=== PATIENT | female | born 1975 | race Caucasian/White ===

== ENCOUNTER 2018-03-16 07:25 | Observation (INO) | payer SELFPAY ==
[~2018-03-16] VITALS: Ht 170.2 cm; Wt 85.4 kg
[~2018-03-16 07:25] MED LIST: AC500T PO; ALPR1T PO; ALPR1TAB2 PO; AMOX500T2 PO; BPR150TCR; BUPR150T9 PO; CEPH500C PO; CLN.1T PO; CLON0.1T PO; DIAZ-345 PO; GABA-490 PO; GABA600T2; GABA800T PO; GABA800T2 PO; GBPN300C PO; HYDR-2997 PO; HYDR-34 PO; HYDR-3583 PO; HYDR118S10 PO; HYDR1TAB3 PO; HYDR1TAB8 OP; IBUP-30 PO; KETO-22 PO; KETO75CA PO; LSRT50T PO; METH50PO2 MC; METOPROLOL; MTP25TSR; MULT-974 PO; NAPR-689 PO; NITR-65 PO; OMEP20CA6; ONDA-42 SL; ONDA8TAB9 PO; ONDA8TAB9 SL; ONDAN4ODT PO; OXYC-272 PO; OXYC-465 PO; PRM25T PO; PRM50SU PR; PROM25SU10 PR; PROM25SU10 RC; PROM50SU10 RC; QTP200T PO; QUET150T; QUET300T; QUET300T PO; QUET300T3 PO; RABE20TA; SCR1T1; SULF-222 PO; SULF1TAB23 PO; SULF1TAB38 PO; TMSL.4C PO; TRAM-21; TRAM50TA2 PO
--- OUTSIDE RECORDS SUMMARY | 2018-03-16 07:31 | XMS REPORT ---
Author Author DEONDRE SHAFFER [facility] eClinicalWorks Address Unknown Phone Unavailable Care Team Providers Care Corporate Event Planner Name Role Phone DEONDRE SHAFFER CP Unavailable Allergies, Adverse Reactions, Alerts Substance Reaction Event Type Tramadol Narc alert Drug Allergy Tramad Info Not Available Non Drug Allergy Problems Problem Type Condition Code Onset Dates Condition Status Assessment Arthritis M19.90 Active Problem Hypertension I10 Active Problem Arthritis M19.90 Active Problem Migraine G43.909 Active Assessment Migraine G43.909 Active Assessment Hypertension I10 Active Problem Other psoriasis 696.1 Active Problem Depressive disorder, not elsewhere classified 311 Active Medications Medication Code System Code Instructions Start Date End Date Status Dosage Seroquel XR [facility] [address]-00 300 MG Orally Once a day Dec 12, 2014 1 tablet in the evening Neurontin [facility] [address]-38 800 MG Three times a day January 28, 2014 1 tablet Clonidine HCl [facility] [address]-04 0.1 MG 2 times a day TAKE ONE TABLET BY MOUTH TWICE DAILY (PLEASE MAKE FOLLOW-UP APPOINTMENT) Imitrex [facility] [address]-75 50 MG Orally 2 times a day Aug 03, 2015 1 tablet as needed one time Procedures Procedure Coding System Code Date Office Visit, Est Pt., Level 3 CPT-4 16355 Aug 03, 2015 Vital Signs Date/Time: Aug 03, 2015 Temperature 98.0 F Weight 156 lbs Height 67 in BMI 24.43 Index Blood Pressure Diastolic 88 mmHg Blood Pressure Systolic 130 mmHg Cardiac Monitoring Heart Rate 88 bpm Results No Known Results Summary Purpose eClinicalWorks Submission
--- OUTSIDE RECORDS SUMMARY | 2018-03-16 07:31 | XMS REPORT ---
Author Author DEONDRE SHAFFER [facility] Address [address] [place] [address] Care Team Providers Care Dress Fitter Name Role Phone DEONDRE SHAFFER Unavailable PROBLEMS Type Condition ICD9-CM Code FAB84-GQ Code Onset Dates Condition Status SNOMED Code Problem Benzodiazepine dependence F13.20 Active 067210200 Problem Lumbago with sciatica, unspecified side M54.40 Active 535788344 Problem Essential hypertension I10 Active 57714937 Problem Migraine G43.909 Active 86047959 Problem Arthritis M19.90 Active 8153649 Problem Hypertension I10 Active 68334824 Problem Psoriasis L40.9 Active 9923019 Problem Gastroesophageal reflux disease without esophagitis K21.9 Active 642207498 Problem Anxiety F41.9 Active 37679284 Problem Other chronic pain G89.29 Active 26710046 Problem Affective disorder F39 Active 90472568 Problem Moderate episode of recurrent major depressive disorder F33.1 Active 321730428 ALLERGIES Substance Reaction Event Type Date Status Levaquin rash Drug Allergy May, Active Tramadol Narc alert Drug Allergy May, Active ENCOUNTERS Encounter Location Date Diagnosis [facility] [address] [address] Dec, [facility] [place] [address] [address] Nov, Psoriasis L40.9 [facility] [place] [address] [address] Nov, [facility] [place] [address] [address] Nov, Anxiety F41.9 [facility] [place] [id number] [address] Oct, [facility] [place] [id number] [address] Oct, [facility] [place] [address] [address] Oct, [facility] [address] [address] Oct, [facility] [id number] [place] [address]182- 3345 Sep, [facility] [id number] [place] [address] 39790- 3242 Sep, [facility] [place] [facility] [id number] [place] [address] [id number] Aug, Dental examination Z01.20 and Dental caries K02.9 [facility] [id number] [place] [address] 16211- 0503 Aug, [facility] [place] [id number] [place] [address] 37527- 2092 Jul, [facility] [place] [address] [address] Jul, [facility] [place] [id number] [place] [address] 55896- 1097 Jul, Moderate episode of recurrent major depressive disorder F33.1 [facility] [place] [address] [address] 18 Jun, 2017 Moderate episode of recurrent major depressive disorder F33.1 and Anxiety F41.9 [facility] [place] [address] [address] 14 Jun, 2017 [facility] [place] [id number] [place] [address] 29900- 2546 11 Jun, 2017 Anxiety F41.9 [facility] [place] [address] [address] 01 Jun, 2017 Moderate episode of recurrent major depressive disorder F33.1 [facility] [place] [id number] [place] [address] 06141- 0947 Jun, [facility] [place] [address] [address] May, Moderate episode of recurrent major depressive disorder F33.1 [facility] [id number] [place] [address]7877 -[address]93 May, [facility] [place] [address] [address] May, Encounter for well woman exam with routine gynecological exam Z01.419 and Anxiety F41.9 [place] [address] [address]- [address] Apr, [place] [address] [address] Mar, Affective disorder F39 ; Benzodiazepine dependence F13.20 and High risk sexual behavior Z72.51 [facility] [address] [address] Jan, Dyspepsia R10.13 ; Gastroesophageal reflux disease without esophagitis K21.9 and Affective disorder F39 [place] [id number] [place] [address] 68990- 2724 Jan, Affective disorder F39 [place] [id number] [place] [address] 93590- 0883 Dec, Moderate episode of recurrent major depressive disorder F33.1 [facility] [id number] [place] [address] 05138- 4891 14 Nov, 2016 Unspecified episodic mood disorder F39 and Essential hypertension I10 [place] [address] [address]- [address] 02 Nov, 2016 Affective disorder F39 ; Anxiety F41.9 and Unspecified episodic mood disorder F39 [place] [id number] [place] [address] 68916- 9152 Oct, [place] [address] [address] Oct, [facility] [address] [place] [id number] Sep, Dysuria R30.0 [facility] [place] [id number] [place] [address] 47828- 7423 Sep, [facility] [place] [id number] [place] [address] 42343- 4069 Aug, [facility] [id number] [place] [address] 35878- 8897 Aug, [facility] [id number] [place] [address] 48379- 4229 Jul, [facility] [id number] [place] [address] 06881 -5166 Jul, Acute non-recurrent maxillary sinusitis J01.00 and Dysuria R30.0 [facility] [id number] [place] [address] 65044- 6861 Jul, Affective disorder F39 ; Essential hypertension I10 ; Lumbago with sciatica, unspecified side M54.40 ; Other chronic pain G89.29 and Acute vaginitis N76.0 [facility] [id number] [place] [address] 44274- 9338 Jun, [facility] [id number] [place] [address] 64117- 9409 Jun, [facility] [id number] [place] [address] 59158- 0793 Jun, [facility] [id number] [place] [address] 39620 -8565 May, Anxiety F41.9 [facility] [id number] [place] [address] 01646- 2599 May, [facility] [id number] [place] [address] 05129- 7934 May, [facility] [address] [address]- 3862 Apr, [facility] [id number] [place] [address] 85519- 8233 Apr, Affective disorder F39 [facility] [place] [id number] [place] [address] 95899- 6022 Apr, [facility] [place] [id number] [place] [address] 44307- 6407 Apr, Unspecified episodic mood disorder F39 [facility] [id number] [place] [address] 76317- 1762 Jan, Hypertension I10 [facility] [place] [id number] [place] [address] 31265- 9214 Jan, Benzodiazepine dependence F13.20 and Arthritis M19.90 [facility] [id number] [place] [address] 89091- 3943 Nov, [facility] [id number] [place] [address] 42349- 2448 Jul, Migraine G43.909 ; Hypertension I10 and Arthritis M19.90 [facility] [id number] [place] [address] 19644- 9543 Jun, [facility] [id number] [place] [address] 35359- 8932 Jun, [facility] [id number] [place] [address] 37460- 4331 Jun, [facility] [id number] [place] [address] 94676- 1338 May, [facility] [id number] [place] [address] 26177- 1302 Jan, [facility] [id number] [place] [address] 64098- 9490 Jan, [facility] [place] [facility] [address] [id number] [place] [address]- 2295 Nov, [facility] [place] [facility] [address] [id number] [place] [address]- 3123 Nov, [facility] [place] [facility] [address] [id number] [place] [address]- 3744 Oct, [facility] [place] [facility] [address] [id number] [place] [address]- 0568 Oct, [facility] [place] [facility] [address] [id number] [place] [address]- 8975 Oct, [facility] [place] [facility] [address] [id number] [place] [address]- 4735 Oct, [facility] [place] [facility] [address] [id number] [place] [address]- 1700 Aug, [facility] [place] [facility] [address] [id number] [place] [address]- 1921 Aug, [facility] [place] [facility] [address] [id number] [place] [address]- 8119 Aug, [facility] [place] [facility] [address] [id number] [place] [address]- 1519 Aug, [facility] [place] [facility] [address] [id number] [place] [address]- 1030 Aug, [facility] [place] [facility] [address] [id number] [place] [address]- 8284 Aug, [facility] [place] [facility] [address] [id number] [place] [address]- 1299 Aug, [facility] [place] [facility] [address] [id number] [place] [address]- 1679 May, [facility] [place] [facility] [address] [id number] [place] [address]- 7427 May, [facility] [place] [facility] [address] [id number] [place] [address]- 6213 May, [facility] [place] [facility] [address] [id number] [place] [address]- 5360 May, [facility] [place] [facility] [address] [id number] [place] [address]- 3489 May, [facility] [place] [facility] [address] [id number] [place] [address]- 5419 Apr, [facility] [place] [facility] [address] [id number] [place] [address]- 9237 Apr, [facility] [place] [facility] [address] [id number] [place] [address]- 6687 Apr, [facility] [place] [facility] [address] [id number] [place] [address]- 6678 Apr, [facility] [place] [facility] [address] [id number] [place] [address]- 5996 Apr, [facility] [place] [facility] [address] [id number] [place] [address]- 1305 Apr, [facility] [place] [facility] [address] [id number] [place] [address]- 0002 Apr, [facility] [place] [facility] [address] [id number] [place] [address]- 6868 Apr, [facility] [place] [facility] [address] [id number] [place] [address]- 4404 Mar, [facility] [place] [facility] [address] [id number] [place] [address]- 3316 Mar, [facility] [place] [facility] [address] [id number] [place] [address]- 2808 Mar, [facility] [place] [facility] [address] [id number] [place] [address]- 9710 Mar, [facility] [place] [facility] [address] [id number] [place] [address]- 3932 Mar, [facility] [place] [facility] [address] [id number] [place] [address]- 0908 Mar, [facility] [place] [facility] [address] [id number] [place] [address]- 1007 Mar, [facility] [place] [facility] [address] [id number] [place] [address]- 4506 February, [facility] [place] [facility] [address] [id number] [place] [address]- 7777 February, [facility] [place] [facility] [address] [id number] [place] [address]- 2845 Jan, [facility] [place] [facility] [address] [id number] [place] [address]- 9905 Jan, [facility] [place] [facility] [address] [id number] [place] [address]- 6652 Jan, [facility] [place] [facility] [address] [id number] [place] [address]- 4654 Jan, [facility] [place] [facility] [address] [id number] [place] [address]- 2822 Jan, [facility] [place] [facility] [address] [id number] [place] [address]- 1185 Jan, [facility] [place] [facility] [address] [id number] [place] [address]- 4092 Dec, [facility] [place] [facility] [address] [id number] [place] [address]- 6899 Dec, [facility] [place] [facility] [address] [id number] [place] [address]- 6190 Dec, [facility] [place] [facility] [address] [id number] [place] [address]- 1156 Nov, [facility] [place] [facility] [address] [id number] [place] [address]- 2706 Nov, [facility] [place] [facility] [address] [id number] [place] [address]- 6775 Nov, [facility] [place] [facility] [address] [id number] [place] [address]- 5620 Nov, [facility] [place] [facility] [address] [id number] [place] [address]- 7559 Oct, [facility] [place] [facility] [address] [id number] [place] [address]- 2465 Oct, [facility] [place] [facility] [address] [id number] [place] [address]- 1097 Oct, [facility] [place] [facility] [address] [id number] [place] [address]- 9864 Oct, [facility] [place] [facility] [address] [id number] [place] [address]- 1414 Oct, [facility] [place] [facility] [address] [id number] [place] [address]- 8824 Oct, [facility] [place] [facility] [address] [id number] [place] [address]- 9616 Sep, [facility] [place] [facility] [address] [id number] [place] [address]- 1503 Sep, [facility] [place] [facility] [address] [id number] [place] [address]- 0819 Aug, [facility] [place] [facility] [address] [id number] [place] [address]- 4342 Aug, [facility] [place] [facility] [address] [id number] [place] [address]- 5360 Aug, [facility] [place] [facility] [address] [id number] [place] [address]- 3730 Aug, [facility] [place] [facility] [address] [id number] [place] [address]- 0330 Jul, [facility] [place] [facility] [address] [id number] [place] [address]- 6063 Jul, [facility] [place] [facility] [address] [id number] [place] [address]- 4232 Jul, [facility] [address] [id number] [place] [address]- 5795 Jul, [facility] [place] [facility] [address] [id number] [place] [address]- 6612 Jul, [facility] [address] [id number] [place] [address]- 6405 Apr, [facility] [place] [facility] [address] [id number] [place] [address]- 3393 Apr, [facility] [address] [id number] [place] [address]- 0827 Mar, [facility] [place] [facility] [address] [id number] [place] [address]- 9842 Mar, [facility] [address] [id number] [place] [address]- 9023 February, [facility] [address] [id number] [place] [address]- 6525 Dec, [facility] [place] [facility] [address] [id number] [place] [address]- 6203 Dec, [facility] [place] [facility] [address] [id number] [place] [address]- 4327 Dec, [facility] [place] [facility] [address] [id number] [place] [address]- 4443 Oct, [facility] [place] [facility] [address] [id number] [place] [address]- 1427 Oct, [facility] [place] [facility] [address] [id number] [place] [address]- 2512 Sep, [facility] [place] [facility] [address] [id number] [place] [address]- 1911 Aug, [facility] [address] [id number] [place] [address]- 2953 Aug, [facility] [place] [facility] [address] [id number] [place] [address]- 7003 Aug, [facility] [place] [facility] [address] [id number] [place] [address]- 5237 Aug, [facility] [place] [facility] [address] [id number] [place] [address]- 2004 Aug, [facility] [place] [facility] [address] [id number] [place] [address], [place] [address]- 3230 Aug, [facility] [place] [facility] [address] [id number] [place] [address]- 7740 Aug, [facility] [place] [facility] [address] [id number] [place] [address]- 5677 Jul, [facility] [place] [facility] [address] [id number] [place] [address]- 4491 Jul, [facility] [place] [facility] [address] [id number] [place] [address]- 4017 Jul, [facility] [place] [facility] [address] [id number] [place] [address]- 6568 Jun, [facility] [place] [facility] [address] [id number] [place] [address]- 5730 Apr, [facility] [place] [facility] [address] [id number] [place] [address] Apr, [facility] [place] [facility] [address] [id number] [place] [address] Apr, [facility] [place] [facility] [address] [id number] [place] [address] Mar, [facility] [place] [facility] [address] [id number] [place] [address] Mar, [facility] [place] [facility] [address] [id number] [place] [address] Jan, [facility] [place] [facility] [address] [id number] [place] [address]- 2011 Dec, [facility] [place] [facility] [address] [id number] [place] [address] 15 May, 2011 [facility] [place] [facility] [address] [id number] [place] [address] Sep, [facility] [place] [facility] [address] [id number] [place] [address] 16 Sep, 2010 [facility] [place] [facility] [address] [id number] [place] [address] Aug, [facility] [place] [facility] [address] [id number] [place] [address] Jul, [facility] [place] [facility] [address] [id number] [place] [address] Jul, [facility] [place] [facility] [address] [id number] [place] [address] Apr, [facility] [place] [facility] [address] [id number] [place] [address] Jan, [facility] [place] [facility] [address] [id number] [place] [address] Aug, [facility] [place] [facility] [address] [id number] [place] [address] Aug, [facility] [place] [facility] [address] [id number] [place] [address] Aug, [facility] [place] [facility] [address] [id number] [place] [address] Aug, [facility] [place] [facility] [address] [id number] [place] [address] 29 Jul, 2009 [facility] [place] [facility] [address] [id number] [place] [address] May, [facility] [place] [facility] [address] [id number] [place] [address] 15 Apr, 2009 [facility] [place] [facility] [address] [facility] [id number] [place] [id number] February, [facility] [place] [address] [facility] [id number] [place] [address] Dec, IMMUNIZATIONS No Known Immunizations SOCIAL HISTORY Never Assessed REASON FOR VISIT Depression- states last week she was very emotional- counslor at [facility] suggested something more for depression- Laura Vila RN PLAN OF CARE Activity Details Follow Up 4 Weeks Reason: VITAL SIGNS Height 67 in 2017-06-16 Weight 187 lbs 2017-06-16 Temperature 98.0 degrees Fahrenheit 2017-06-16 Heart Rate 78 bpm 2017-06-16 Respiratory Rate 18 2017-06-16 BMI 29.29 kg/m2 2017-06-16 Blood pressure systolic 134 mmHg 2017-06-16 Blood pressure diastolic 92 mmHg 2017-06-16 MEDICATIONS Medication Instructions Dosage Frequency Start Date End Date Duration Status Wellbutrin SR 150 MG Orally Once a day 1 tablet 24h Active Trazodone HCl 100 mg Orally Once a day 1 tablet at bedtime 24h 30 Active BusPIRone HCl 15 mg Orally 3 times a day 1 tablet 8h 18 May, 2017 Active Seroquel 300 MG Orally Once a day 1 tablet 24h Active Neurontin 800 MG Orally 4 times a day 1 tablet 6h 30 Active Clonidine HCl 0.1 MG Orally 2 times a day TAKE ONE TABLET BY MOUTH TWICE DAILY (PLEASE MAKE FOLLOW-UP APPOINTMENT) 12h 30 Active Atenolol 50 mg Orally Once a day 1 tablet 24h 30 Active RESULTS No Results PROCEDURES No Known procedures INSTRUCTIONS MEDICATIONS ADMINISTERED No Known Medications MEDICAL (GENERAL) HISTORY Type Description Date Medical History migraine headaches Medical History Unspecified backache Surgical History Hysterectomy 2003 Surgical History Bladder surgeries x 3 Hospitalization History Pneumonia 2013 Hospitalization History kidney stones 2013
--- OUTSIDE RECORDS SUMMARY | 2018-03-16 07:31 | XMS REPORT ---
Author Author DEONDRE SHAFFER Organization [employer] Address Unknown Phone Unavailable Care Team Providers Care Manager Transport Name Role Phone DEONDRE SHAFFER CP Unavailable Allergies No Known Allergies Problems Problem Type Condition ICD-9 Code Onset Dates Condition Status Problem Other psoriasis 696.1 Active Problem Unspecified essential hypertension 401.9 Active Problem Cough 786.2 Active Problem Acute pharyngitis 462 Active Problem Depressive disorder, not elsewhere classified 311 Active Problem Acute bronchitis 466.0 Active Problem Unspecified backache 724.5 Active Problem Pain in joint, site unspecified 719.40 Active Problem Painful respiration 786.52 Active Problem Palpitations 785.1 Active Problem Anxiety state, unspecified 300.00 Active Problem Urinary tract infection, site not specified 599.0 Active Medications Medication Code System Code Instructions Start Date End Date Status Dosage Clonidine HCl [facility] 60880267267 0.1 MG TAKE ONE TABLET BY MOUTH TWICE DAILY (PLEASE MAKE FOLLOW-UP APPOINTMENT) Results No Known Results Summary Purpose [employer] Submission
--- OUTSIDE RECORDS SUMMARY | 2018-03-16 07:31 | XMS REPORT ---
Author Author DEONDRE SHAFFER [facility] [employer] Address Unknown Phone Unavailable Care Team Providers Care Student Development Dean Name Role Phone DEONDRE SHAFFER CP Unavailable Allergies No Known Allergies Problems Problem Type Condition Code Onset Dates Condition Status Problem Depressive disorder, not elsewhere classified 311 Active Problem Arthritis M19.90 Active Problem Other psoriasis 696.1 Active Problem Lumbago with sciatica, unspecified side M54.40 Active Problem Other chronic pain G89.29 Active Problem Essential hypertension I10 Active Problem Migraine G43.909 Active Problem Hypertension I10 Active Problem Affective disorder F39 Active Problem Benzodiazepine dependence F13.20 Active Medications Medication Code System Code Instructions Start Date End Date Status Dosage Seroquel XR [facility] 40484372753 300 MG Orally Once a day 1 tablet in the evening Results No Known Results Summary Purpose [employer] Submission
--- OUTSIDE RECORDS SUMMARY | 2018-03-16 07:31 | XMS REPORT ---
Author Author СВЕТЛАНА CROWLEY [facility] Address [address] [place] [address] Care Team Providers Care Loan Assistant Name Role Phone СВЕТЛАНА CROWLEY Unavailable PROBLEMS Type Condition ICD9-CM Code LAV14-LN Code Onset Dates Condition Status SNOMED Code Problem Hypertension I10 Active 98349316 Problem Lumbago with sciatica, unspecified side M54.40 Active 243731889 Problem Benzodiazepine dependence F13.20 Active 007115529 Problem Migraine G43.909 Active 62974162 Problem Arthritis M19.90 Active 3406808 Problem Gastroesophageal reflux disease without esophagitis K21.9 Active 834681411 Problem Affective disorder F39 Active 90551557 Problem Essential hypertension I10 Active 48211653 Problem Other chronic pain G89.29 Active 63768354 Problem Moderate episode of recurrent major depressive disorder F33.1 Active 845087537 Problem Anxiety F41.9 Active 55206891 ALLERGIES Unknown Allergies SOCIAL HISTORY No smoking Hx information available PLAN OF CARE VITAL SIGNS MEDICATIONS Medication Instructions Dosage Frequency Start Date End Date Duration Status Atenolol 50 mg Orally Once a day 1 tablet 24h Oct, 15 days Active RESULTS No Results PROCEDURES No Known procedures IMMUNIZATIONS No Known Immunizations
--- OUTSIDE RECORDS SUMMARY | 2018-03-16 07:31 | XMS REPORT ---
Author Author СВЕТЛАНА CROWLEY [facility] Address [address] [place] [address] Care Team Providers Care Hot Kettle Tender Name Role Phone СВЕТЛАНА CROWLEY Unavailable PROBLEMS Type Condition ICD9-CM Code HXM05-HK Code Onset Dates Condition Status SNOMED Code Problem Hypertension I10 Active 95593753 Problem Lumbago with sciatica, unspecified side M54.40 Active 559366441 Problem Benzodiazepine dependence F13.20 Active 939027164 Problem Migraine G43.909 Active 92778115 Problem Arthritis M19.90 Active 4979945 Problem Gastroesophageal reflux disease without esophagitis K21.9 Active 942867850 Problem Affective disorder F39 Active 67747982 Problem Essential hypertension I10 Active 46231789 Problem Other chronic pain G89.29 Active 64831896 Problem Moderate episode of recurrent major depressive disorder F33.1 Active 940238297 Problem Anxiety F41.9 Active 67257011 ALLERGIES Unknown Allergies SOCIAL HISTORY No smoking Hx information available PLAN OF CARE VITAL SIGNS MEDICATIONS Unknown Medications RESULTS No Results PROCEDURES No Known procedures IMMUNIZATIONS No Known Immunizations
--- OUTSIDE RECORDS SUMMARY | 2018-03-16 07:31 | XMS REPORT ---
Author Author JULIETA SHARMA Organization [employer] Address Unknown Phone Unavailable Care Team Providers Care Front Worker Name Role Phone JULIETA SHARMA CP Unavailable Allergies No Known Allergies Problems Problem Type Condition Code Onset Dates Condition Status Problem Benzodiazepine dependence F13.20 Active Problem Migraine G43.909 Active Problem Affective disorder F39 Active Problem Other psoriasis 696.1 Active Problem Depressive disorder, not elsewhere classified 311 Active Problem Hypertension I10 Active Problem Arthritis M19.90 Active Medications No Known Medications Results No Known Results Summary Purpose [employer] Submission
--- OUTSIDE RECORDS SUMMARY | 2018-03-16 07:32 | XMS REPORT ---
Author Author DEONDRE SHAFFER [facility] Address [address] [place] [address] Care Team Providers Care Ear Pull Machine Operator Name Role Phone DEONDRE SHAFFER Unavailable PROBLEMS Type Condition ICD9-CM Code ABH63-MP Code Onset Dates Condition Status SNOMED Code Problem Depressive disorder, not elsewhere classified 311 Active 44565144 Problem Affective disorder F39 Active 82439880 Problem Benzodiazepine dependence F13.20 Active 783490737 Problem Arthritis M19.90 Active 5188758 Problem Other psoriasis 696.1 Active 8044662 Problem Migraine G43.909 Active 41041952 Problem Hypertension I10 Active 76594000 ALLERGIES Unknown Allergies SOCIAL HISTORY No smoking Hx information available PLAN OF CARE VITAL SIGNS MEDICATIONS Unknown Medications RESULTS No Results PROCEDURES No Known procedures IMMUNIZATIONS No Known Immunizations
--- OUTSIDE RECORDS SUMMARY | 2018-03-16 07:32 | XMS REPORT ---
Author Author СВЕТЛАНА CROWLEY Organization [employer] Address Unknown Phone Unavailable Care Team Providers Care Recruiting Assistant Name Role Phone СВЕТЛАНА CROWLEY CP Unavailable Allergies, Adverse Reactions, Alerts Substance Reaction Event Type Tramadol Narc alert Drug Allergy Tramad Info Not Available Non Drug Allergy Problems Problem Type Condition Code Onset Dates Condition Status Assessment Anxiety F41.9 Active Problem Benzodiazepine dependence F13.20 Active Problem Migraine G43.909 Active Problem Affective disorder F39 Active Problem Other psoriasis 696.1 Active Problem Depressive disorder, not elsewhere classified 311 Active Problem Hypertension I10 Active Problem Arthritis M19.90 Active Medications Medication Code System Code Instructions Start Date End Date Status Dosage Seroquel XR [facility] 52219321610 300 MG Orally Once a day 1 tablet in the evening Clonidine HCl [facility] [address]-39 0.1 MG 2 times a day TAKE ONE TABLET BY MOUTH TWICE DAILY (PLEASE MAKE FOLLOW-UP APPOINTMENT) Zofran [facility] [address]-41 8 MG Orally every 8 hours PRN Nov 23, 2015 1/2 tablet Neurontin [facility] [address]-24 800 MG Three times a day January 28, 2014 1 tablet Seroquel [facility] [address]-93 400 MG Orally 2 times a day Jun 05, 2016 1 tablet Neurontin [facility] [address]-04 600 MG Orally Three times a day January 28, 2014 1 tablet Lorazepam [facility] [address]-36 1 MG Orally one time January 23, 2016 1 tablet at bedtime as needed Imitrex [facility] [address]-73 50 MG Orally 2 times a day Aug 03, 2015 1 tablet as needed one time Procedures Procedure Coding System Code Date Office Visit, Est Pt., Level 2 CPT-4 23930 Jun 05, 2016 Vital Signs Date/Time: Jun 05, 2016 Cardiac Monitoring Heart Rate 110 bpm Weight 153.8 lbs Height 67 in BMI 24.09 Index Blood Pressure Diastolic 86 mmHg Blood Pressure Systolic 134 mmHg Results No Known Results Summary Purpose [employer]ClinicalWorks Submission
--- OUTSIDE RECORDS SUMMARY | 2018-03-16 07:32 | XMS REPORT ---
Author Author DEONDRE SHAFFER Organization [facility] Address [address] [place] [address] Care Team Providers Care Linecasting Machine Keyboard Operator Name Role Phone DEONDRE SHAFFER Unavailable PROBLEMS Type Condition ICD9-CM Code IGQ98-CH Code Onset Dates Condition Status SNOMED Code Problem Benzodiazepine dependence F13.20 Active 746560357 Problem Lumbago with sciatica, unspecified side M54.40 Active 449090970 Problem Essential hypertension I10 Active 24914038 Problem Migraine G43.909 Active 29238879 Problem Arthritis M19.90 Active 3843583 Problem Hypertension I10 Active 09901772 Problem Psoriasis L40.9 Active 2898221 Problem Gastroesophageal reflux disease without esophagitis K21.9 Active 957063650 Problem Anxiety F41.9 Active 34744251 Problem Other chronic pain G89.29 Active 18895438 Problem Affective disorder F39 Active 53677421 Problem Moderate episode of recurrent major depressive disorder F33.1 Active 839603965 ALLERGIES No Information ENCOUNTERS Encounter Location Date Diagnosis [place] [id number] [place] [address] 09802- 7683 Jan, [facility] [id number] [place] [address] 65425- 3921 Dec, [facility] [id number] [place] [address] 95955- 4546 Nov, Psoriasis L40.9 [facility] [id number] [place] [address] 19432- 4071 Nov, [facility] [id number] [place] [address] 38256- 4216 Nov, Anxiety F41.9 [facility] [id number] [place] [address] 52045- 2069 Oct, [facility] [address], [place] [address] 7900 Oct, [facility] [address] [facility] [place] [id number] [address] 5079 Oct, [facility] [address], [place] [address] 0122 Oct, [facility] [id number] [place] [address] 06849- 9776 Sep, [facility] [address], [place] [address]- 1427 Sep, [facility] [id number] [place] [address] [id number] Aug, Dental examination Z01.20 and Dental caries K02.9 [facility] [address], [place] [address]- 5427 Aug, [facility] [id number] [place] [address] 78676- 0749 Jul, [facility] [address], [place] [address]- 4595 Jul, [facility] [address], [place] [address]- 6060 Jul, Moderate episode of recurrent major depressive disorder F33.1 [facility] [address], [place] [address] 8300 18 Jun, 2017 Moderate episode of recurrent major depressive disorder F33.1 and Anxiety F41.9 [facility] [address], [place] [address]- 4316 14 Jun, 2017 [facility] [address] [address]- 6216 11 Jun, 2017 Anxiety F41.9 [facility] [address] [address]- 9316 Jun, Moderate episode of recurrent major depressive disorder F33.1 [facility] [id number] [place] [address] 07338- 8417 Jun, [facility] [id number] [place] [address] 04708- 3608 May, Moderate episode of recurrent major depressive disorder F33.1 [facility] [id number] [place] [address] 70272 -1208 May, [facility] [address] [address]- 1072 May, Encounter for well woman exam with routine gynecological exam Z01.419 and Anxiety F41.9 [place] [address] 90673- 7539 Apr, [place] [id number] [place] [address] 10933- 4860 Mar, Affective disorder F39 ; Benzodiazepine dependence F13.20 and High risk sexual behavior Z72.51 [facility] [id number] [place] [address] 60355- 8657 Jan, Dyspepsia R10.13 ; Gastroesophageal reflux disease without esophagitis K21.9 and Affective disorder F39 [place] [id number] [place] [address] 02409- 5095 Jan, Affective disorder F39 [place] [address] [id number] [place] [address] 89850- 9919 Dec, Moderate episode of recurrent major depressive disorder F33.1 [facility] [id number] [place] [address] 54249- 7646 14 Nov, 2016 Unspecified episodic mood disorder F39 and Essential hypertension I10 [place] [id number] [place] [address] 45722- 1240 02 Nov, 2016 Affective disorder F39 ; Anxiety F41.9 and Unspecified episodic mood disorder F39 [place] [id number] [place] [address] 90302- 8319 Oct, [facility] [address], [place] [address]- 4192 Oct, [facility] [address] [place] [id number] Sep, Dysuria R30.0 [facility] [id number] [place] [address] 08882- 7961 Sep, [facility] [id number] [place] [address] 33685- 9864 Aug, [facility] [id number] [place] [address] 03692- 5588 Aug, [facility] [id number] [place] [address] 95338- 9990 Jul, [facility] [id number] [place] [address] 90742 -5546 Jul, Acute non-recurrent maxillary sinusitis J01.00 and Dysuria R30.0 [facility] [id number] [place] [address] 08437- 1602 Jul, Affective disorder F39 ; Essential hypertension I10 ; Lumbago with sciatica, unspecified side M54.40 ; Other chronic pain G89.29 and Acute vaginitis N76.0 [facility] [id number] [place] [address] 47908- 9757 Jun, [facility] [id number] [place] [address] 00615- 4819 Jun, [facility] [id number] [place] [address] 14707- 6298 Jun, [facility] [id number] [place] [address] 20556 -9560 May, Anxiety F41.9 [facility] [id number] [place] [address] 98713- 1058 May, [facility] [id number] [place] [address] 21995- 6114 May, [facility] [address] [place] [address] 79175- 7403 Apr, [facility] [id number] [place] [address] 16447- 2120 Apr, Affective disorder F39 [facility] [id number] [place] [address] 78019- 3330 Apr, [facility] [id number] [place] [address] 89251- 0087 Apr, Unspecified episodic mood disorder F39 [facility] [id number] [place] [address] 88496- 2813 Jan, Hypertension I10 [facility] [id number] [place] [address] 28938- 9671 Jan, Benzodiazepine dependence F13.20 and Arthritis M19.90 [facility] [id number] [place] [address] 67492- 0189 Nov, [facility] [id number] [place] [address] 88718- 8070 Jul, Migraine G43.909 ; Hypertension I10 and Arthritis M19.90 [facility] [id number] [place] [address] 91642- 1433 Jun, [facility] [id number] [place] [address] 19218- 1857 Jun, [facility] [address] [place] [address] 25122- 0834 Jun, [facility] [id number] [place] [address] 01209- 9071 May, [facility] [id number] [place] [address] 65798- 8778 14 Jan, 2015 [facility] [id number] [place] [address] 66352- 1582 Jan, [facility] [place] [facility] [address] [id number] [place] [address]- 7265 Nov, [facility] [place] [facility] [address] [id number] [place] [address]- 6214 Nov, [facility] [place] [facility] [address] [id number] [place] [address]- 8968 Oct, [facility] [place] [facility] [address] [id number] [place] [address]- 1901 Oct, [facility] [place] [facility] [address] [id number] [place] [address]- 6862 Oct, [facility] [place] [facility] [address] [id number] [place] [address]- 0671 Oct, [facility] [place] [facility] [address] [id number] [place] [address]- 1133 Aug, [facility] [place] [facility] [address] [id number] [place] [address]- 2356 Aug, [facility] [place] [facility] [address] [id number] [place] [address]- 2094 Aug, [facility] [place] [facility] [address] [id number] [place] [address]- 8973 Aug, [facility] [place] [facility] [address] [id number] [place] [address]- 1447 Aug, [facility] [place] [facility] [address] [id number], [place] [address]- 2189 Aug, [facility] [place] [facility] [address] [id number] [place] [address]- 2806 Aug, [facility] [place] [facility] [address] [id number] [place] [address]- 5559 May, [facility] [place] [facility] [address] [id number] [place] [address]- 4501 May, [facility] [place] [facility] [address] [id number] [place] [address]- 7181 May, [facility] [place] [facility] [address] [id number] [place] [address]- 2266 May, [facility] [place] [facility] [address] [id number] [place] [address]- 3245 May, [facility] [place] [facility] [address] [id number] [place] [address]- 1078 Apr, [facility] [place] [facility] [address] [id number] [place] [address]- 0928 Apr, [facility] [place] [facility] [address] [id number] [place] [address]- 6458 Apr, [facility] [place] [facility] [address] [id number] [place] [address]- 5822 Apr, [facility] [place] [facility] [address] [id number] [place] [address]- 7343 Apr, [facility] [place] [facility] [address] [id number] [place] [address]- 7644 Apr, [facility] [place] [facility] [address] [id number] [place] [address]- 7603 Apr, [facility] [place] [facility] [address] [id number] [place] [address]- 0273 Apr, [facility] [place] [facility] [address] [id number] [place] [address]- 2428 Mar, [facility] [place] [facility] [address] [id number] [place] [address]- 8167 Mar, [facility] [place] [facility] [address] [id number] [place] [address]- 2332 Mar, [facility] [place] [facility] [address] [id number] [place] [address]- 7023 Mar, [facility] [place] [facility] [address] [id number] [place] [address]- 1211 Mar, [facility] [place] [facility] [address] [id number] [place] [address]- 7708 Mar, [facility] [place] [facility] [address] [id number] [place] [address]- 5558 Mar, [facility] [place] [facility] [address] [id number] [place] [address]- 5971 February, [facility] [place] [facility] [address] [id number] [place] [address]- 5721 February, [facility] [place] [facility] [address] [id number] [place] [address]- 3844 Jan, [facility] [place] [facility] [address] [id number] [place] [address]- 7192 Jan, [facility] [place] [facility] [address] [id number] [place] [address]- 3029 Jan, [facility] [place] [facility] [address] [id number] [place] [address]- 6355 Jan, [facility] [place] [facility] [address] [id number] [place] [address]- 8856 Jan, [facility] [place] [facility] [address] [id number] [place] [address]- 4932 Jan, [facility] [place] [facility] [address] [id number] [place] [address]- 3897 Dec, [facility] [place] [facility] [address] [id number] [place] [address]- 5834 Dec, [facility] [place] [facility] [address] [id number] [place] [address]- 8810 Dec, [facility] [place] [facility] [address] [id number] [place] [address]- 6747 Nov, [facility] [place] [facility] [address] [id number] [place] [address]- 9956 Nov, [facility] [place] [facility] [address] [id number] [place] [address]- 1553 Nov, [facility] [place] [facility] [address] [id number] [place] [address]- 5257 Nov, [facility] [place] [facility] [address] [id number] [place] [address]- 4719 Oct, [facility] [place] [facility] [address] [id number] [place] [address]- 5824 Oct, [facility] [place] [facility] [address] [id number] [place] [address]- 1853 Oct, [facility] [place] [facility] [address] [id number] [place] [address]- 6010 Oct, [facility] [place] [facility] [address] [id number] [place] [address]- 6454 Oct, [facility] [place] [facility] [address] [id number] [place] [address]- 7373 Oct, [facility] [place] [facility] [address] [id number] [place] [address]- 7546 Sep, [facility] [place] [facility] [address] [id number], [place] [address]- 4628 Sep, [facility] [place] [facility] [address] [id number], [place] [address]- 7058 Aug, [facility] [place] [facility] [address] [id number], [place] [address]- 0006 Aug, [facility] [place] [facility] [address] [id number], [place] [address]- 1278 Aug, [facility] [place] [facility] [address] [id number], [place] [address]- 1422 Aug, [facility] [place] [facility] [address] [id number], [place] [address]- 7711 Jul, [facility] [place] [facility] [address] [id number] [place] [address]- 9289 Jul, [facility] [place] [facility] [address] [id number] [place] [address]- 8386 Jul, [facility] [address] [id number] [place] [address]- 4359 Jul, [facility] [place] [facility] [address] [id number] [place] [address]- 2546 Jul, [facility] [address] [id number] [place] [address]- 2792 Apr, [facility] [place] [facility] [address] [id number] [place] [address]- 5587 Apr, [facility] [address] [id number] [place] [address]- 2093 Mar, [facility] [place] [facility] [address] [id number] [place] [address]- 5960 Mar, [facility] [address] [id number] [place] [address]- 5218 February, [facility] [address] [id number] [place] [address]- 9343 Dec, [facility] [address] [id number] [place] [address]- 5528 Dec, [facility] [address] [id number] [place] [address]- 9903 Dec, [facility] [place] [facility] [address] [id number] [place] [address]- 6285 Oct, [facility] [address] [id number] [place] [address]- 0185 Oct, [facility] [place] [facility] [address] [id number] [place] [address]- 2546 Sep, [facility] [place] [facility] [address] [id number] [place] [address]- 2546 Aug, [facility] [address] [id number] [place] [address]- 1436 Aug, [facility] [place] [facility] [address] [id number] [place] [address]- 8972 Aug, [facility] [place] [facility] [address] [id number] [place] [address]- 7315 Aug, [facility] [place] [facility] [address] [id number] [place] 8145 Aug, [facility] [place] [facility] [address] [id number] [place] [address]- 9214 Aug, [facility] [place] [facility] [address] [id number] [place] 4614 Aug, [facility] [place] [facility] [address] [id number] [place] [address]- 5032 Jul, [facility] [place] [facility] [address] [id number] [place] [address]- 9509 Jul, [facility] [place] [facility] [address] [id number] [place] [address]- 4393 Jul, [facility] [place] [facility] [address] [id number] [place] [address]- 5477 Jun, [facility] [place] [facility] [address] [id number], [place] [address]- 1969 Apr, [facility] [place] [facility] [address] [id number], [place] [address]- 7344 Apr, [facility] [place] [facility] [address] [id number], [place] [address]- 3958 Apr, [facility] [place] [facility] [address] [id number] [place] [address]- 1489 Mar, [facility] [place] [facility] [address] [id number], [place] [address]- 2767 Mar, [facility] [place] [facility] [address] [id number] [place] [address]- 1772 Jan, [facility] [place] [facility] [address] [id number] [place] [address]- 0028 Dec, [facility] [place] [facility] [address] [id number] [place] [address]- 0839 15 May, 2011 [facility] [place] [facility] [address] [id number] [place] [address]- 8717 Sep, [facility] [place] [facility] [address] [id number] [place] [address]- 5286 16 Sep, 2010 [facility] [place] [facility] [address] [id number] [place] [address]- 0467 Aug, [facility] [place] [facility] [address] [id number] [place] [address]- 9992 Jul, [facility] [place] [facility] [address] [id number] [place] [address]- 3462 Jul, [facility] [place] [facility] [address] [id number] [place] [address]- 9331 15 Apr, 2010 [facility] [place] [facility] [address] [id number] [place] [address]- 4507 Jan, [facility] [place] [facility] [address] [id number] [place] [address]- 7414 Aug, [facility] [place] [facility] [address] [facility] [id number] [place] [address]- 8967 Aug, [facility] [place] [facility] [address] [id number] [place] [address]- 3314 07 Aug, 2009 [facility] [place] [facility] [address] [id number] [place] [address]- 2549 06 Aug, 2009 [facility] [place] [facility] [address] [id number] [place] [address]- 5913 29 Jul, 2009 [facility] [place] [facility] [address] [id number] [place] [address]- 6711 10 May, 2009 [facility] [place] [facility] [address] [id number], [place] [address]- 2403 15 Apr, 2009 [facility] [place] [facility] [address] [facility] [id number] [place] [address]- 4027 February, [facility] [address] [facility] [id number], [place] [address]- 9793 Dec, IMMUNIZATIONS No Known Immunizations SOCIAL HISTORY Never Assessed REASON FOR VISIT Seroquel Rx change? PLAN OF CARE VITAL SIGNS MEDICATIONS Medication Instructions Dosage Frequency Start Date End Date Duration Status Clonidine HCl 0.1 MG Orally 2 times a day TAKE ONE TABLET BY MOUTH TWICE DAILY (PLEASE MAKE FOLLOW-UP APPOINTMENT) 12h 30 Active RESULTS No Results PROCEDURES No Known procedures INSTRUCTIONS MEDICATIONS ADMINISTERED No Known Medications MEDICAL (GENERAL) HISTORY Type Description Date Medical History migraine headaches Medical History Unspecified backache Surgical History Hysterectomy 2002 Surgical History Bladder surgeries x 3 Hospitalization History Pneumonia 2013 Hospitalization History kidney stones 2013
--- OUTSIDE RECORDS SUMMARY | 2018-03-16 07:32 | XMS REPORT ---
Author Author JULIETA SHARMA Organization [employer] Address Unknown Phone Unavailable Care Team Providers Care Political Geographer Name Role Phone JULIETA SHARMA CP Unavailable Allergies No Known Allergies Problems Problem Type Condition Code Onset Dates Condition Status Assessment Affective disorder F39 Active Problem Benzodiazepine dependence F13.20 Active Problem Migraine G43.909 Active Problem Affective disorder F39 Active Problem Other psoriasis 696.1 Active Problem Depressive disorder, not elsewhere classified 311 Active Problem Hypertension I10 Active Problem Arthritis M19.90 Active Medications No Known Medications Procedures Procedure Coding System Code Date Psychotherapy, patient &/family, 30 minutes, established patient CPT-4 [id number] April 26, 2016 Results No Known Results Summary Purpose [employer] Submission
--- OUTSIDE RECORDS SUMMARY | 2018-03-16 07:32 | XMS REPORT ---
Author Author DEONDRE SHAFFER Organization [employer] Address Unknown Phone Unavailable Care Team Providers Care Demolition Engineer Name Role Phone DEONDRE SHAFFER CP Unavailable [...] Date End Date Status Dosage Seroquel XR [facility] [address]-11 300 MG Dec 12, 2014 1 Tablet by Oral route 2 times per day Neurontin [facility] [address]-96 800 MG Three times a day January 28, 2014 1 tablet Clonidine HCl [facility] [address]-47 0.1 MG TAKE ONE TABLET BY MOUTH TWICE DAILY (PLEASE MAKE FOLLOW-UP APPOINTMENT) Results No Known Results Summary Purpose [employer] Submission
--- OUTSIDE RECORDS SUMMARY | 2018-03-16 07:32 | XMS REPORT ---
Author Author DEONDRE SHAFFER [facility] Address [address] [place] [address] Care Team Providers Care Implementation Manager Name Role Phone DEONDRE SHAFFER Unavailable PROBLEMS Type Condition ICD9-CM Code [id number] Code Onset Dates Condition Status SNOMED Code Problem Other psoriasis 696.1 Active 9924224 Problem Hypertension I10 Active 60141451 Problem Arthritis M19.90 Active 9727967 Problem Depressive disorder, not elsewhere classified 311 Active 65156484 Problem Essential hypertension I10 Active 12622973 Problem Lumbago with sciatica, unspecified side M54.40 Active 501667924 Problem Benzodiazepine dependence F13.20 Active 475522670 Problem Migraine G43.909 Active 34595669 Problem Other chronic pain G89.29 Active 54939829 Problem Affective disorder F39 Active 03160338 ALLERGIES Unknown Allergies SOCIAL HISTORY No smoking Hx information available PLAN OF CARE VITAL SIGNS MEDICATIONS Medication Instructions Dosage Frequency Start Date End Date Duration Status Macrobid 100 MG Orally every 12 hrs 1 capsule with food 12h Jun, Jun, 7 day(s) Active RESULTS No Results PROCEDURES No Known procedures IMMUNIZATIONS No Known Immunizations
--- OUTSIDE RECORDS SUMMARY | 2018-03-16 07:32 | XMS REPORT ---
Author Author DEONDRE SHAFFER [facility] Address [address] [place] [address] Care Team Providers Care Release Coordinator Name Role Phone DEONDRE SHAFFER Unavailable PROBLEMS Type Condition ICD9-CM Code [id number] Code Onset Dates Condition Status SNOMED Code Problem Depressive disorder, not elsewhere classified 311 Active 16024876 Problem Affective disorder F39 Active 95754020 Problem Benzodiazepine dependence F13.20 Active 904526631 Problem Arthritis M19.90 Active 0295247 Problem Other psoriasis 696.1 Active 0018338 Problem Migraine G43.909 Active 76266575 Problem Hypertension I10 Active 79643877 ALLERGIES Unknown Allergies SOCIAL HISTORY No smoking Hx information available PLAN OF CARE VITAL SIGNS MEDICATIONS Medication Instructions Dosage Frequency Start Date End Date Duration Status Seroquel XR 300 MG Orally Once a day 1 tablet in the evening 24h 30 Active Neurontin 800 MG Orally Three times a day 1 tablet 8h Jan, Active Clonidine HCl 0.1 MG Orally 2 times a day TAKE ONE TABLET BY MOUTH TWICE DAILY (PLEASE MAKE FOLLOW-UP APPOINTMENT) 12h Active RESULTS No Results PROCEDURES No Known procedures IMMUNIZATIONS No Known Immunizations
--- OUTSIDE RECORDS SUMMARY | 2018-03-16 07:32 | XMS REPORT ---
Author Author DEONDRE SHAFFER [facility] eClinicalWorks Address Unknown Phone Unavailable Care Team Providers Care Circus Train Supervisor Name Role Phone DEONDRE SHAFFER CP Unavailable Allergies, Adverse Reactions, Alerts Substance Reaction Event Type Tramadol Narc alert Drug Allergy Tramad Info Not Available Non Drug Allergy Problems Problem Type Condition Code Onset Dates Condition Status Assessment Arthritis M19.90 Active Problem Migraine G43.909 Active Problem Hypertension I10 Active Problem Benzodiazepine dependence F13.20 Active Problem Depressive disorder, not elsewhere classified 311 Active Assessment Benzodiazepine dependence F13.20 Active Problem Arthritis M19.90 Active Problem Other psoriasis 696.1 Active Medications Medication Code System Code Instructions Start Date End Date Status Dosage Zofran [facility] [address]-48 8 MG Orally every 8 hours PRN Nov 23, 2015 1/2 tablet Clonidine HCl [facility] [address]-52 0.1 MG 2 times a day TAKE ONE TABLET BY MOUTH TWICE DAILY (PLEASE MAKE FOLLOW-UP APPOINTMENT) Lorazepam [facility] [address]-37 1 MG Orally one time January 23, 2016 1 tablet at bedtime as needed Neurontin [facility] [address]-66 600 MG Orally Three times a day January 28, 2014 1 tablet Imitrex [facility] [address]-45 50 MG Orally 2 times a day Aug 03, 2015 1 tablet as needed one time Seroquel XR [facility] 11076710431 300 MG Orally Once a day 1 tablet in the evening Neurontin [facility] [address]-36 800 MG Three times a day January 28, 2014 1 tablet Procedures Procedure Coding System Code Date Office Visit, Est Pt., Level 2 CPT-4 13336 January 23, 2016 Vital Signs Date/Time: January 23, 2016 Temperature 98.4 F Weight 165.0 lbs Height 67 in BMI 25.84 Index Blood Pressure Diastolic 90 mmHg Blood Pressure Systolic 140 mmHg Cardiac Monitoring Heart Rate 108 bpm Results No Known Results Summary Purpose eClinicalWorks Submission
--- OUTSIDE RECORDS SUMMARY | 2018-03-16 07:33 | XMS REPORT ---
Author Author DEONDRE SHAFFER [facility] [address] Address [address] [place] [address] Care Team Providers Care Maintenance Supervisor 2Nd Shift Name Role Phone DEONDRE SHAFFER Unavailable PROBLEMS Type Condition ICD9-CM Code ICT76-[id number] Code Onset Dates Condition Status SNOMED Code Problem Hypertension I10 Active 72985150 Problem Lumbago with sciatica, unspecified side M54.40 Active 714204477 Problem Benzodiazepine dependence F13.20 Active 205278380 Problem Migraine G43.909 Active 23769060 Problem Arthritis M19.90 Active 1075991 Problem Gastroesophageal reflux disease without esophagitis K21.9 Active 695391752 Problem Affective disorder F39 Active 07163744 Problem Essential hypertension I10 Active 74590330 Problem Other chronic pain G89.29 Active 79168801 Problem Moderate episode of recurrent major depressive disorder F33.1 Active 481766068 Problem Anxiety F41.9 Active 54915671 ALLERGIES Substance Reaction Event Type Date Status Levaquin rash Drug Allergy Nov, Active Tramadol Narc alert Drug Allergy Nov, Active SOCIAL HISTORY Never Assessed PLAN OF CARE Activity Details Follow Up 4 Weeks Reason: VITAL SIGNS Height 67 in 2016-12-03 Weight 185.2 lbs 2016-12-03 Temperature 98.4 degrees Fahrenheit 2016-12-03 Heart Rate 144 bpm 2016-12-03 Respiratory Rate 20 2016-12-03 BMI 29.00 kg/m2 2016-12-03 Blood pressure systolic 130 mmHg 2016-12-03 Blood pressure diastolic 90 mmHg 2016-12-03 MEDICATIONS Medication Instructions Dosage Frequency Start Date End Date Duration Status Clonidine HCl 0.1 MG Orally 2 times a day TAKE ONE TABLET BY MOUTH TWICE DAILY (PLEASE MAKE FOLLOW-UP APPOINTMENT) 12h Active Seroquel 50 mg Orally twice a day, take with 100mg tablet 1 tablet Sep Active Neurontin 800 MG Orally 4 times a day 1 tablet 6h Jan, Active Atenolol 50 mg Orally Once a day 1 tablet 24h Oct, Active Seroquel 300 MG Orally twice a day, take with 50mg tablet 1 tablet Sep Active BuSpar 5 mg Orally Three times a day 1 tablet 8h Active RESULTS No Results PROCEDURES No Known procedures IMMUNIZATIONS No Known Immunizations MEDICAL (GENERAL) HISTORY Type Description Date Medical History migraine headaches Medical History Unspecified backache Surgical History Hysterectomy 2003 Surgical History Bladder surgeries x 3 Hospitalization History Pneumonia 2013 Hospitalization History kidney stones 2014
--- OUTSIDE RECORDS SUMMARY | 2018-03-16 07:33 | XMS REPORT ---
Author Author DEONDRE SHAFFER Organization e[employer] Address Unknown Phone Unavailable Care Team Providers Care Sql Server Consultant Name Role Phone DEONDRE SHAFFER CP Unavailable [...] infection, site not specified 599.0 Active Medications No Known Medications Results No Known Results Summary Purpose eClinicalWorks Submission
--- OUTSIDE RECORDS SUMMARY | 2018-03-16 07:33 | XMS REPORT ---
Author Author DENODRE SHAFFER [facility] eClinicalWorks Address Unknown Phone Unavailable Care Team Providers Care Cleaning Custodian Name Role Phone DEONDRE SHAFFER CP Unavailable [...] Active Problem Benzodiazepine dependence F13.20 Active Medications No Known Medications Results No Known Results Summary Purpose eClinicalWorks Submission
--- OUTSIDE RECORDS SUMMARY | 2018-03-16 07:33 | XMS REPORT ---
Author DEONDRE Olmos [facility] eClinicalWorks Address Unknown Phone Unavailable Care Team Providers Care Storeroom Clerk Name Role Phone DEONDRE SHAFFER CP Unavailable Allergies, Adverse Reactions, Alerts Substance Reaction Event Type Tramadol Narc alert Drug Allergy Problems Problem Type Condition Code [...] F39 Active Problem Benzodiazepine dependence F13.20 Active Assessment Other chronic pain G89.29 Active Assessment Lumbago with sciatica, unspecified side M54.40 Active Assessment Essential hypertension I10 Active Assessment Acute vaginitis N76.0 Active Assessment Affective disorder F39 Active Medications Medication Code System Code Instructions Start Date End Date Status Dosage Imitrex [facility] [address]-21 50 MG Orally 2 times a day Aug 03, 2015 1 tablet as needed one time Seroquel XR [facility] 92853442356 300 MG Orally Once a day 1 tablet in the evening Atenolol [facility] [address]-32 50 mg Orally Once a day Jul 22, 2016 1 tablet Clonidine HCl [facility] [address]-32 0.1 MG Orally 2 times a day TAKE ONE TABLET BY MOUTH TWICE DAILY (PLEASE MAKE FOLLOW-UP APPOINTMENT) BuSpar NDC 0 5 mg Orally Three times a day 1 tablet Diflucan [facility] [address]-10 150 MG Orally now Jul 22, 2016 1 tablet Trazodone HCl [facility] [address]-93 100 MG Orally Once a day Jul 22, 2016 1 tablet at bedtime Neurontin [facility] [address]-78 800 MG Orally 4 times a day January 28, 2014 1 tablet Procedures Procedure Coding System Code Date Office Visit, Est Pt., Level 3 CPT-4 54618 Jul 22, 2016 Vital Signs Date/Time: Jul 22, 2016 Cardiac Monitoring Heart Rate 106 bpm Weight 158.6 lbs Height 67 in BMI 24.84 Index Blood Pressure Diastolic 90 mmHg Blood Pressure Systolic 130 mmHg Results No Known Results Summary Purpose eClinicalWorks Submission
--- OUTSIDE RECORDS SUMMARY | 2018-03-16 07:33 | XMS REPORT ---
Author Author DEONDRE SHAFFER [facility] Address [address] [place] [address] Care Team Providers Care Product Marketing Analyst Name Role Phone DEONDRE SHAFFER Unavailable PROBLEMS Type Condition ICD9-CM Code CVX81-FY Code Onset Dates Condition Status SNOMED Code Problem Benzodiazepine dependence F13.20 Active 510495981 Problem Lumbago with sciatica, unspecified side M54.40 Active 320244281 Problem Essential hypertension I10 Active 30504450 Problem Migraine G43.909 Active 47551979 Problem Arthritis M19.90 Active 5756267 Problem Hypertension I10 Active 44882585 Problem Psoriasis L40.9 Active 2177763 Problem Gastroesophageal reflux disease without esophagitis K21.9 Active 934753232 Problem Anxiety F41.9 Active 77104843 Problem Other chronic pain G89.29 Active 98196012 Problem Affective disorder F39 Active 11013065 Problem Moderate episode of recurrent major depressive disorder F33.1 Active 104270759 ALLERGIES No Information ENCOUNTERS Encounter Location Date Diagnosis [place] [id number] [place] [address] 36719- 1566 Dec, [place] [id number] [place] [address] 67291- 0936 Nov, Psoriasis L40.9 [facility] [id number] [place] [address] 45845- 1017 Nov, [facility] [id number] [place] [address] 10630- 0836 Nov, Anxiety F41.9 [facility] [address] [address]13- 5400 Oct, [facility] [id number] [place] [address] 25758- 4871 Oct, [place] [id number] [address] 7126 Oct, [facility] [address] [address] 3637 Oct, [facility] [id number] [address] 3722 Sep, [facility] [id number] [place] [address] 29598- 3808 Sep, [facility] [address] [id number] Aug, Dental examination Z01.20 and Dental caries K02.9 [facility] [id number] [place] [address] 54340- 8028 Aug, [facility] [id number] [place] [address] 96858- 6524 Jul, [facility] [address] [address]- 8138 Jul, [facility] [id number] [place] [address] 31549- 4816 Jul, Moderate episode of recurrent major depressive disorder F33.1 [facility] [address] [address]- 9014 18 Jun, 2017 Moderate episode of recurrent major depressive disorder F33.1 and Anxiety F41.9 [facility] [address] [address]- 2304 14 Jun, 2017 [facility] [address] [address]- 2549 11 Jun, 2017 Anxiety F41.9 [facility] [address] [address]- 9130 Jun, Moderate episode of recurrent major depressive disorder F33.1 [facility] [address] [address]- 2125 Jun, [facility] [id number] [place] [address] 90089- 9063 May, Moderate episode of recurrent major depressive disorder F33.[address] [facility] [id number] [place] [address] 12925 -8411 May, [facility] [id number] [place] [address] 07561- 1110 May, Encounter for well woman exam with routine gynecological exam Z01.419 and Anxiety F41.9 [facility] [id number] [place] [address] 56464- 8653 Apr, [place] [address] 73042- 2661 Mar, Affective disorder F39 ; Benzodiazepine dependence F13.20 and High risk sexual behavior Z72.51 [facility] [id number] [place] [address] 41397- 6150 Jan, Dyspepsia R10.13 ; Gastroesophageal reflux disease without esophagitis K21.9 and Affective disorder F39 [facility] [id number] [place] [address] 68114- 7488 Jan, Affective disorder F39 [facility] [id number] [place] [address] 26634- 0150 10 Dec, 2016 Moderate episode of recurrent major depressive disorder F33.1 [facility] [id number] [place] [address] 61204- 8927 14 Nov, 2016 Unspecified episodic mood disorder F39 and Essential hypertension I10 [facility] [id number] [place] [address] 38643- 5563 02 Nov, 2016 Affective disorder F39 ; Anxiety F41.9 and Unspecified episodic mood disorder F39 [facility] [id number] [place] [address] 84499- 8408 Oct, [facility] [id number] [place] [address] 09799- 2610 Oct, [facility] [address] [place] [place] [id number] Sep, Dysuria R30.0 [facility] [id number] [place] [address] 03811- 0743 Sep, [facility] [id number] [place] [address] 23510- 5256 Aug, [facility] [address] 98581- 8109 Aug, [facility] [id number] [place] [address] 52327- 5598 Jul, [facility] [id number] [place] [address] 34354 -3073 Jul, Acute non-recurrent maxillary sinusitis J01.00 and Dysuria R30.0 [facility] [address] 86361- 5715 Jul, Affective disorder F39 ; Essential hypertension I10 ; Lumbago with sciatica, unspecified side M54.40 ; Other chronic pain G89.29 and Acute vaginitis N76.0 [facility] [id number] [place] [address] 51105- 6551 Jun, [facility] [id number] [place] [address] 09814- 5030 Jun, [facility] [id number] [place] [address] 63902- 3848 Jun, [facility] [id number] [place] [address] 59692 -7889 May, Anxiety F41.9 [facility] [id number] [place] [address] 24851- 0892 May, [facility] [id number] [place] [address] 51896- 4665 May, [facility] [id number] [place] [address] 71606- 9248 Apr, [facility] [id number] [place] [address] 67528- 9561 Apr, Affective disorder F39 [facility] [id number] [place] [address] 88160- 0816 Apr, [facility] [id number] [place] [address] 28468- 6332 Apr, 2016 Unspecified episodic mood disorder F39 [facility] [id number] [place] [address] 48560- 1887 Jan, Hypertension I10 [facility] [id number] [place] [address] 18890- 6513 Jan, Benzodiazepine dependence F13.20 and Arthritis M19.90 [facility] [id number] [place] [address] 37855- 8729 Nov, [facility] [id number] [place] [address] 71459- 9869 Jul, Migraine G43.909 ; Hypertension I10 and Arthritis M19.90 [facility] [id number] [place] [address] 23982- 4699 Jun, [facility] [id number] [place] [address] 79411- 6197 Jun, [facility] [id number] [place] [address] 20336- 6404 Jun, [facility] [id number] [place] [address] 47429- 0285 May, [facility] [id number] [place] [address] 08222- 4121 Jan, [facility] [id number] [place] [address] 17677- 3320 Jan, [facility] [id number] [place] [address] 71415- 8197 Nov, [facility] [place] [facility] [address] [id number] [place] [address]- 9054 Nov, [facility] [place] [facility] [address] [id number] [place] [address]- 1627 Oct, [facility] [place] [facility] [address] [id number] [place] [address]- 9126 Oct, [facility] [place] [facility] [address] [id number] [place] [address]- 5846 Oct, [facility] [place] [facility] [address] [id number] [place] [address]- 3517 Oct, [facility] [place] [facility] [address] [id number] [place] [address]- 2845 Aug, [facility] [place] [facility] [address] [id number] [place] [address]- 5538 Aug, [facility] [place] [facility] [address] [id number] [place] [address]- 9044 Aug, [facility] [place] [facility] [address] [id number] [place] [address]- 9847 Aug, [facility] [place] [facility] [address] [id number] [place] [address]- 5800 Aug, [facility] [place] [facility] [address] [id number] [place] [address]- 2882 Aug, [facility] [place] [facility] [address] [id number] [place] [address]- 5147 Aug, [facility] [place] [facility] [address] [id number] [place] [address]- 8943 May, [facility] [place] [facility] [address] [id number] [place] [address]- 6465 May, [facility] [place] [facility] [address] [id number] [place] [address]- 8575 May, [facility] [place] [facility] [address] [id number] [place] [address]- 3410 May, [facility] [place] [facility] [address] [id number] [place] [address]- 9180 May, [facility] [place] [facility] [address] [id number] [place] [address]- 7252 Apr, [facility] [place] [facility] [address] [id number] [place] [address]- 8272 Apr, [facility] [place] [facility] [address] [id number] [place] [address]- 3405 Apr, [facility] [place] [facility] [address] [id number] [place] [address]- 5853 Apr, [facility] [place] [facility] [address] [id number] [place] [address]- 2980 Apr, [facility] [place] [facility] [address] [id number] [place] [address]- 2312 Apr, [facility] [place] [facility] [address] [id number] [place] [address]- 6500 Apr, [facility] [place] [facility] [address] [id number] [place] [address]- 9001 Apr, [facility] [place] [facility] [address] [id number] [place] [address]- 1697 Mar, [facility] [place] [facility] [address] [id number] [place] [address]- 6357 Mar, [facility] [place] [facility] [address] [id number] [place] [address]- 8359 Mar, [facility] [place] [facility] [address] [id number] [place] [address]- 4458 Mar, [facility] [place] [facility] [address] [id number] [place] [address]- 4032 Mar, [facility] [place] [facility] [address] [id number] [place] [address]- 0130 Mar, [facility] [place] [facility] [address] [id number] [place] [address]- 6307 Mar, [facility] [place] [facility] [address] [id number] [place] [address]- 6090 February, [facility] [place] [facility] [address] [id number] [place] [address]- 2311 February, [facility] [place] [facility] [address] [id number] [place] [address]- 2808 Jan, [facility] [place] [facility] [address] [id number] [place] [address]- 9684 Jan, [facility] [place] [facility] [address] [id number] [place] [address]- 1324 Jan, [facility] [place] [facility] [address] [id number] [place] [address]- 1879 Jan, [facility] [place] [facility] [address] [id number] [place] [address]- 4612 Jan, [facility] [place] [facility] [address] [id number] [place] [address]- 0412 Jan, [facility] [place] [facility] [address] [id number] [place] [address]- 9097 Dec, [facility] [place] [facility] [address] [id number] [place] [address]- 2593 Dec, [facility] [place] [facility] [address] [id number] [place] [address]- 8913 Dec, [facility] [place] [facility] [address] [id number] [place] [address]- 4997 Nov, [facility] [place] [facility] [address] [id number] [place] [address]- 5317 Nov, [facility] [place] [facility] [address] [id number] [place] [address]- 4913 Nov, [facility] [place] [facility] [address] [id number] [address]- 4372 Nov, [facility] [place] [facility] [address] [id number] [place] [address]- 9715 Oct, [facility] [place] [facility] [address] [id number] 2761 Oct, [facility] [place] [facility] [address] [id number] [place] [address]- 8520 Oct, [facility] [place] [facility] [address] [id number] [place] [address]- 2495 Oct, [facility] [place] [facility] [address] [id number] [place] [address]- 6814 Oct, [facility] [place] [facility] [address] [id number] [place] [address]- 2742 Oct, [facility] [place] [facility] [address] [id number] [address]- 1624 Sep, [facility] [place] [facility] [address] [id number] [address]- 3405 Sep, [facility] [place] [facility] [address] [id number] [address]- 9021 Aug, [facility] [place] [facility] [address] [id number] [address]- 0897 Aug, [facility] [place] [facility] [address] [id number] [address]- 7701 Aug, [facility] [place] [facility] [address] [id number] [address]- 4575 Aug, [facility] [place] [facility] [address] [id number] [address]- 8730 Jul, [facility] [place] [facility] [address] [id number] [address]- 3093 Jul, [facility] [place] [facility] [address] [id number] [address]- 6885 Jul, [facility] [place] [facility] [address] [id number] [place] [address]- 5344 Jul, [facility] [address] [id number] [place] [address]- 0980 Jul, [facility] [place] [facility] [address] [id number] [place] [address]- 6519 Apr, [facility] [address] [id number] [place] [address]- 2342 Apr, [facility] [place] [facility] [address] [id number] [place] [address]- 4870 Mar, [facility] [address] [id number] [place] [address]- 7128 Mar, [facility] [address] [id number] [place] [address]- 8382 February, [facility] [address] [id number] [place] [address]- 6678 Dec, [facility] [address] [id number] [place] [address]- 4157 Dec, [facility] [address] [id number] [place] [address]- 2464 Dec, [facility] [address] [id number] [place] [address]- 7050 Oct, [facility] [address] [id number] [place] [address]- 4740 Oct, [facility] [address] [id number] [place] [address]- 9134 Sep, [facility] [place] [facility] [address] [id number] [place] [address]- 1237 Aug, [facility] [place] [facility] [address] [id number] [place] [address]- 3206 Aug, [facility] [address] [id number] [place] [address]- 7451 Aug, [facility] [place] [facility] [address] [id number] [place] [address]- 5683 Aug, [facility] [place] [facility] [address] [id number] [place] [address]- 4349 Aug, [facility] [place] [facility] [address] [id number] [place] [address]- 2024 Aug, [facility] [place] [facility] [address] [id number] [place] [address]- 1633 Aug, [facility] [place] [facility] [address] [id number] [place] 8035 Jul, [facility] [place] [facility] [address] [id number] [place] [address]- 9343 Jul, [facility] [place] [facility] [address] [id number] [place] [address]- 5463 Jul, [facility] [place] [facility] [address] [id number] [place] [address]- 3401 Jun, [facility] [place] [facility] [address] [id number] [place] [address]- 1330 Apr, [facility] [place] [facility] [address] [id number] [address]- 9232 Apr, [facility] [place] [facility] [address] [id number] [address]- 5957 Apr, [facility] [place] [facility] [address] [id number] [address]- 2185 Mar, [facility] [place] [facility] [address] [id number] [place] [address]- 1336 Mar, [facility] [place] [facility] [address] [id number] [address]- 9602 Jan, [facility] [place] [facility] [address] [id number] [place] [address]- 5042 Dec, [facility] [place] [facility] [address] [id number] [place] [address]- 3992 15 May, 2011 [facility] [place] [facility] [address] [id number] [place] [address]- 7726 21 Sep, 2010 [facility] [place] [facility] [address] [id number] [place] 7666 16 Sep, 2010 [facility] [place] [facility] [address] [id number] [place] [address]- 1662 Aug, [facility] [place] [facility] [address] [id number] [place] [address]- 4527 Jul, [facility] [place] [facility] [address] [id number] [place] [address]- 2759 Jul, [facility] [place] [facility] [address] [id number] [place] [address]- 6634 15 Apr, 2010 [facility] [place] [facility] [address] [id number] [place] [address]- 1071 Jan, [facility] [place] [facility] [address] [id number] [place] [address]- 9878 Aug, [facility] [place] [facility] [address] [id number] [place] [address]- 9771 Aug, [facility] [place] [facility] [address] [id number] [place] [address]- 4919 Aug, [facility] [place] [facility] [address] [id number] [place] [address]- 3172 Aug, [facility] [place] [facility] [address] [id number] [place] [address]- 1594 Jul, [facility] [place] [facility] [address] [id number] [place] [address]- 6528 May, [facility] [place] [facility] [address] [id number] [place] [address]- 2739 15 Apr, 2009 [facility] [place] [facility] [address] [id number] [place] [address]- 9879 February, [facility] [place] [facility] [address] [facility] [id number] [place] [address]- 9743 Dec, IMMUNIZATIONS No Known Immunizations SOCIAL HISTORY Never Assessed REASON FOR VISIT FYI lost meds PLAN OF CARE VITAL SIGNS MEDICATIONS Unknown Medications RESULTS No Results PROCEDURES No Known procedures INSTRUCTIONS MEDICATIONS ADMINISTERED No Known Medications MEDICAL (GENERAL) HISTORY Type Description Date Medical History migraine headaches Medical History Unspecified backache Surgical History Hysterectomy 2002 Surgical History Bladder surgeries x 3 Hospitalization History Pneumonia 2013 Hospitalization History kidney stones 2013
--- OUTSIDE RECORDS SUMMARY | 2018-03-16 07:33 | XMS REPORT ---
Author Author DEONDRE SHAFFER [facility] eClinicalWorks Address Unknown Phone Unavailable Care Team Providers Care Finished Cloth Examiner Name Role Phone DEONDRE SHAFFER CP Unavailable [...] Date End Date Status Dosage Seroquel XR [facility][NOTE 3] [id number] 300 MG Orally Once a day 1 tablet in the evening Results No Known Results Summary Purpose eClinicalWorks Submission
--- OUTSIDE RECORDS SUMMARY | 2018-03-16 07:33 | XMS REPORT ---
Author Author DEONDRE SHAFFER [facility] Address [address] [place] [address] Care Team Providers Care Jewelry Polisher Name Role Phone DEONDRE SHAFFER Unavailable PROBLEMS Type Condition ICD9-CM Code EJR11-DC Code Onset Dates Condition Status SNOMED Code Problem Hypertension I10 Active 24293693 Problem Lumbago with sciatica, unspecified side M54.40 Active 130085349 Problem Benzodiazepine dependence F13.20 Active 451291013 Problem Migraine G43.909 Active 39002360 Problem Arthritis M19.90 Active 8259327 Problem Gastroesophageal reflux disease without esophagitis K21.9 Active 853738860 Problem Affective disorder F39 Active 33121834 Problem Essential hypertension I10 Active 25774786 Problem Other chronic pain G89.29 Active 24947017 Problem Moderate episode of recurrent major depressive disorder F33.1 Active 648074238 Problem Anxiety F41.9 Active 33242349 ALLERGIES Substance Reaction Event Type Date Status Levaquin rash Drug Allergy Dec, Active Tramadol Narc alert Drug Allergy Dec, Active SOCIAL HISTORY Never Assessed PLAN OF CARE Activity Details Follow Up 4 Weeks Reason: VITAL SIGNS Height 67 in 2016-12-27 Weight 185.3 lbs 2016-12-27 Temperature 97.9 degrees Fahrenheit 2016-12-27 Heart Rate 66 bpm 2016-12-27 Respiratory Rate 18 2016-12-27 BMI 29.02 kg/m2 2016-12-27 Blood pressure systolic 100 mmHg 2016-12-27 Blood pressure diastolic 66 mmHg 2016-12-27 MEDICATIONS Medication Instructions Dosage Frequency Start Date End Date Duration Status Trazodone HCl 100 mg Orally Once a day 1 tablet at bedtime 24h 30 Active Clonidine HCl 0.1 MG Orally 2 times a day TAKE ONE TABLET BY MOUTH TWICE DAILY (PLEASE MAKE FOLLOW-UP APPOINTMENT) 12h 30 Active BuSpar 5 mg Orally Three times a day 1 tablet 8h Active Neurontin 800 MG Orally 4 times a day 1 tablet 6h 30 Active Wellbutrin SR 150 MG Orally Twice a day 1 tablet 12h 10 Dec, 2016 30 day(s) Active Atenolol 50 mg Orally Once a day 1 tablet 24h 30 Active Seroquel 300 MG Orally twice a day, take with 50mg tablet 1 tablet Sep 30 days Active RESULTS No Results PROCEDURES No Known procedures IMMUNIZATIONS No Known Immunizations MEDICAL (GENERAL) HISTORY Type Description Date Medical History migraine headaches Medical History Unspecified backache Surgical History Hysterectomy 2003 Surgical History Bladder surgeries x 3 Hospitalization History Pneumonia 2013 Hospitalization History kidney stones 2013
--- OUTSIDE RECORDS SUMMARY | 2018-03-16 07:33 | XMS REPORT ---
Author Author DEONDRE SHAFFER [facility] eClinicalWorks Address Unknown Phone Unavailable Care Team Providers Care Meat Department Manager Name Role Phone DEONDRE SHAFFER CP Unavailable Allergies No Known Allergies Problems Problem Type Condition Code Onset Dates Condition Status Problem Migraine G43.909 Active Problem Hypertension I10 Active Problem Benzodiazepine dependence F13.20 Active Problem Depressive disorder, not elsewhere classified 311 Active Assessment Hypertension I10 Active Problem Arthritis M19.90 Active Problem Other psoriasis 696.1 Active Medications Medication Code System Code Instructions Start Date End Date Status Dosage Clonidine HCl [facility] [address]-24 0.1 MG 2 times a day TAKE ONE TABLET BY MOUTH TWICE DAILY (PLEASE MAKE FOLLOW-UP APPOINTMENT) Results No Known Results Summary Purpose eClinicalWorks Submission
--- OUTSIDE RECORDS SUMMARY | 2018-03-16 07:33 | XMS REPORT ---
Author Author СВЕТЛАНА CROWLEY Organization [facility] Address [address] [place] [address] Care Team Providers Care Econometrician Name Role Phone СВЕТЛАНА CROWLEY Unavailable PROBLEMS Type Condition ICD9-CM Code ZLV28-[id number] Code Onset Dates Condition Status SNOMED Code Problem Migraine G43.909 Active 13709267 Problem Other chronic pain G89.29 Active 45521464 Problem Benzodiazepine dependence F13.20 Active 920685919 Problem Arthritis M19.90 Active 7319541 Problem Hypertension I10 Active 75584437 Problem Gastroesophageal reflux disease without esophagitis K21.9 Active 367699595 Problem Affective disorder F39 Active 40703789 Problem Essential hypertension I10 Active 75035026 Problem Lumbago with sciatica, unspecified side M54.40 Active 787648880 Problem Moderate episode of recurrent major depressive disorder F33.1 Active 465182505 Problem Anxiety F41.9 Active 67780613 ALLERGIES No Known Allergies SOCIAL HISTORY No smoking Hx information available PLAN OF CARE VITAL SIGNS MEDICATIONS Medication Instructions Dosage Frequency Start Date End Date Duration Status Seroquel 50 mg Orally twice a day, take with 100mg tablet 1 tablet Sep Active Seroquel 100 MG Orally twice a day, take with 50mg tablet 1 tablet Sep Active RESULTS Name Result Date Reference Range UA LONG DIP (IN HOUSE) 2016-10-15 Lot # [id number] Exp date 06/2017 Clarity clear Color yellow Odor n/a GLU neg ISIDRA neg KET neg SG 1.020 BLO neg pH 6.0 Protein neg URO 0.2 NIT neg DEYA neg Lot # Exp date PROCEDURES Procedure Date Ordered Related Diagnosis Body Site URINALYSIS, AUTO, W/O SCOPE Oct 15, 2016 Office Visit, Est Pt., Level 1 Oct 15, 2016 IMMUNIZATIONS No Known Immunizations
--- OUTSIDE RECORDS SUMMARY | 2018-03-16 07:34 | XMS REPORT ---
Author Author DEONDRE SHAFFER [facility] eClinicalWorks Address Unknown Phone Unavailable Care Team Providers Care Glass Products Inspector Name Role Phone DEONDRE SHAFFER Unavailable Allergies No Known Allergies Problems Problem Type Condition Code Onset Dates Condition Status Problem Hypertension I10 Active Problem Arthritis M19.90 Active Problem Migraine G43.909 Active Problem Other psoriasis 696.1 Active Problem Depressive disorder, not elsewhere classified 311 Active Medications Medication Code System Code Instructions Start Date End Date Status Dosage Zofran [facility] [address]-97 8 MG Orally every 8 hours PRN Nov 23, 2015 1/2 tablet Results No Known Results Summary Purpose eClinicalWorks Submission
--- OUTSIDE RECORDS SUMMARY | 2018-03-16 07:34 | XMS REPORT ---
Author Author DEONDRE SHAFFER Organization [facility] Address [address] [place] [address] Care Team Providers Care Tape Librarian Name Role Phone DEONDRE SHAFFER Unavailable PROBLEMS Type Condition ICD9-CM Code RRA29-QX Code Onset Dates Condition Status SNOMED Code Problem Benzodiazepine dependence F13.20 Active 700249185 Problem Lumbago with sciatica, unspecified side M54.40 Active 392755798 Problem Essential hypertension I10 Active 21728326 Problem Migraine G43.909 Active 43865116 Problem Arthritis M19.90 Active 8236810 Problem Hypertension I10 Active 44496644 Problem Psoriasis L40.9 Active 1426812 Problem Gastroesophageal reflux disease without esophagitis K21.9 Active 971525715 Problem Anxiety F41.9 Active 03783138 Problem Other chronic pain G89.29 Active 31221496 Problem Affective disorder F39 Active 06642164 Problem Moderate episode of recurrent major depressive disorder F33.1 Active 615937515 ALLERGIES No Information ENCOUNTERS Encounter Location Date Diagnosis [place] [id number] [place] [address]756- 1893 Jan, [facility] [id number] [place] [address] 59025- 0516 Dec, [facility] [id number] [place] [address] 57002- 6723 Nov, Psoriasis L40.9 [facility] [id number] [place] [address] 06046- 2058 Nov, [facility] [id number] [place] [address] 48951- 0474 Nov, Anxiety F41.9 [facility] [id number] [place] [address] 95139- 4128 Oct, [facility] [address] [address] 9499 Oct, [facility] [address] [facility] [id number] [address] 49[address] Oct, [facility] [address] [address] 5795 Oct, [facility] [address] [place] [address] 28249- 6234 Sep, [facility] [address] [address] 24[address] Sep, [facility] [address] [place] [id number] Aug, Dental examination Z01.20 and Dental caries K02.9 [facility] [address] [address] 32[address] Aug, [facility] [address] [place] [address] 63324- 7565 Jul, [facility] [address] [address]- 2793 Jul, [facility] [address] [address]- 7257 Jul, Moderate episode of recurrent major depressive disorder F33.1 [facility] [address] [address] 4002 18 Jun, 2017 Moderate episode of recurrent major depressive disorder F33.1 and Anxiety F41.9 [facility] [address] [address]- 5[address] 14 Jun, 2017 [facility] [address] [address]- 3946 11 Jun, 2017 Anxiety F41.9 [facility] [address] [address]- 9663 Jun, Moderate episode of recurrent major depressive disorder F33.1 [facility] [id number] [place] [address] 83617- 1898 Jun, [facility] [id number] [place] [address] 79693- 8245 May, Moderate episode of recurrent major depressive disorder F33.1 [facility] [id number] [place] [address] 29039 -1256 May, [facility] [address] [address]- 3742 May, Encounter for well woman exam with routine gynecological exam Z01.419 and Anxiety F41.9 [place] [address] 59874- 1459 Apr, [place] [address] [address] [id number] [place] [address] 57372- 7561 Mar, Affective disorder F39 ; Benzodiazepine dependence F13.20 and High risk sexual behavior Z72.51 [facility] [id number] [place] [address] 47825- 0014 Jan, Dyspepsia R10.13 ; Gastroesophageal reflux disease without esophagitis K21.9 and Affective disorder F39 [place] [id number] [place] [address] 59515- 9231 Jan, Affective disorder F39 [place] [address] [id number] [place] [address] 82046- 6348 Dec, Moderate episode of recurrent major depressive disorder F33.1 [facility] [id number] [place] [address] 28323- 0642 14 Nov, 2016 Unspecified episodic mood disorder F39 and Essential hypertension I10 [place] [id number] [place] [address] 18438- 0861 02 Nov, 2016 Affective disorder F39 ; Anxiety F41.9 and Unspecified episodic mood disorder F39 [place] [id number] [place] [address] 30847- 9110 Oct, [facility] [address] [address]- 2306 Oct, [facility] [address] [place] [id number] Sep, Dysuria R30.0 [facility] [id number] [place] [address] 54394- 5664 Sep, [facility] [id number] [place] [address] 69015- 5962 Aug, [facility] [id number] [place] [address] 57400- 7501 Aug, [facility] [id number] [place] [address] 07452- 6071 Jul, [facility] [id number] [place] [address] 03656 -7591 Jul, Acute non-recurrent maxillary sinusitis J01.00 and Dysuria R30.0 [facility] [id number] [place] [address] 92158- 1101 Jul, Affective disorder F39 ; Essential hypertension I10 ; Lumbago with sciatica, unspecified side M54.40 ; Other chronic pain G89.29 and Acute vaginitis N76.0 [facility] [id number] [place] [address] 84967- 8796 Jun, [facility] [id number] [place] [address] 27270- 5503 Jun, [facility] [id number] [place] [address] 21888- 5171 Jun, [facility] [id number] [place] [address] 72590 -1444 May, Anxiety F41.9 [facility] [id number] [place] [address] 20210- 5156 May, [facility] [id number] [place] [address] 88241- 2111 May, [facility] [address] [place] [address] 26114- 3537 Apr, [facility] [id number] [place] [address] 11722- 6825 Apr, Affective disorder F39 [facility] [id number] [place] [address] 09118- 5498 Apr, [facility] [id number] [place] [address] 97485- 3500 Apr, Unspecified episodic mood disorder F39 [facility] [id number] [place] [address] 80492- 1393 Jan, Hypertension I10 [facility] [id number] [place] [address] 35090- 6974 Jan, Benzodiazepine dependence F13.20 and Arthritis M19.90 [facility] [id number] [place] [address] 70050- 8405 Nov, [facility] [id number] [place] [address] 44236- 3985 Jul, Migraine G43.909 ; Hypertension I10 and Arthritis M19.90 [facility] [id number] [place] [address] 26878- 0085 Jun, [facility] [id number] [place] [address] 83814- 7240 Jun, [facility] [address] [place] [address] 01701- 8139 Jun, [facility] [id number] [place] [address] 97886- 2678 May, [facility] [id number] [place] [address] 92056- 7783 14 Jan, 2015 [facility] [id number] [place] [address] 65067- 8202 Jan, [facility] [place] [facility] [address] [id number] [place] [address]- 9901 Nov, [facility] [place] [facility] [address] [id number] [place] [address]- 9707 Nov, [facility] [place] [facility] [address] [id number] [place] [address]- 8248 Oct, [facility] [place] [facility] [address] [id number] [place] [address]- 5240 Oct, [facility] [place] [facility] [address] [id number] [place] [address]- 4523 Oct, [facility] [place] [facility] [address] [id number] [place] [address]- 9292 Oct, [facility] [place] [facility] [address] [id number] [place] [address]- 8975 Aug, [facility] [place] [facility] [address] [id number] [place] [address]- 7281 Aug, [facility] [place] [facility] [address] [id number] [place] [address]- 2969 Aug, [facility] [place] [facility] [address] [id number] [place] [address]- 4106 Aug, [facility] [place] [facility] [address] [id number] [place] [address]- 0346 Aug, [facility] [place] [facility] [address] [id number] [address]- 9623 Aug, [facility] [place] [facility] [address] [id number] [place] [address]- 3055 Aug, [facility] [place] [facility] [address] [id number] [place] [address]- 7794 May, [facility] [place] [facility] [address] [id number] [place] [address]- 6236 May, [facility] [place] [facility] [address] [id number] [place] [address]- 3931 May, [facility] [place] [facility] [address] [id number] [place] [address]- 6570 May, [facility] [place] [facility] [address] [id number] [place] [address]- 1871 May, [facility] [place] [facility] [address] [id number] [place] [address]- 6730 Apr, [facility] [place] [facility] [address] [id number] [place] [address]- 5155 Apr, [facility] [place] [facility] [address] [id number] [place] [address]- 9379 Apr, [facility] [place] [facility] [address] [id number] [place] [address]- 4828 Apr, [facility] [place] [facility] [address] [id number] [place] [address]- 8535 Apr, [facility] [place] [facility] [address] [id number] [place] [address]- 2143 Apr, [facility] [place] [facility] [address] [id number] [place] [address]- 8702 Apr, [facility] [place] [facility] [address] [id number] [place] [address]- 9201 Apr, [facility] [place] [facility] [address] [id number] [place] [address]- 6058 Mar, [facility] [place] [facility] [address] [id number] [place] [address]- 8589 Mar, [facility] [place] [facility] [address] [id number] [place] [address]- 8702 Mar, [facility] [place] [facility] [address] [id number] [place] [address]- 2449 Mar, [facility] [place] [facility] [address] [id number] [place] [address]- 1125 Mar, [facility] [place] [facility] [address] [id number] [place] [address]- 7879 Mar, [facility] [place] [facility] [address] [id number] [place] [address]- 7781 Mar, [facility] [place] [facility] [address] [id number] [place] [address]- 4783 February, [facility] [place] [facility] [address] [id number] [place] [address]- 7232 February, [facility] [place] [facility] [address] [id number] [place] [address]- 0689 Jan, [facility] [place] [facility] [address] [id number] [place] [address]- 2443 Jan, [facility] [place] [facility] [address] [id number] [place] [address]- 9826 Jan, [facility] [place] [facility] [address] [id number] [place] [address]- 5719 Jan, [facility] [place] [facility] [address] [id number] [place] [address]- 4481 Jan, [facility] [place] [facility] [address] [id number] [place] [address]- 5251 Jan, [facility] [place] [facility] [address] [id number] [place] [address]- 6916 Dec, [facility] [place] [facility] [address] [id number] [place] [address]- 1960 Dec, [facility] [place] [facility] [address] [id number] [place] [address]- 9645 Dec, [facility] [place] [facility] [address] [id number] [place] [address]- 1624 Nov, [facility] [place] [facility] [address] [id number] [place] [address]- 9821 Nov, [facility] [place] [facility] [address] [id number] [place] [address]- 1724 Nov, [facility] [place] [facility] [address] [id number] [place] [address]- 7474 Nov, [facility] [place] [facility] [address] [id number] [place] [address]- 2250 Oct, [facility] [place] [facility] [address] [id number] [place] [address]- 1045 Oct, [facility] [place] [facility] [address] [id number] [place] [address]- 7638 Oct, [facility] [place] [facility] [address] [id number] [place] [address]- 4532 Oct, [facility] [place] [facility] [address] [id number] [place] [address]- 5498 Oct, [facility] [place] [facility] [address] [id number] [place] [address]- 8121 Oct, [facility] [place] [facility] [address] [id number] [place] [address]- 3462 Sep, [facility] [place] [facility] [address] [id number] [address]- 2054 Sep, [facility] [place] [facility] [address] [id number] [place] [address]- 2020 Aug, [facility] [place] [facility] [address] [id number] [place] [address]- 4856 Aug, [facility] [place] [facility] [address] [id number] [place] [address]- 5231 Aug, [facility] [place] [facility] [address] [id number] [place] [address]- 7950 Aug, [facility] [place] [facility] [address] [id number] [place] [address]- 9900 Jul, [facility] [place] [facility] [address] [id number] [place] [address]- 1923 Jul, [facility] [place] [facility] [address] [id number] [place] [address]- 8516 Jul, [facility] [address] [id number] [place] [address]- 7002 Jul, [facility] [place] [facility] [address] [id number] [place] [address]- 2546 Jul, [facility] [address] [id number] [place] [address]- 6983 Apr, [facility] [place] [facility] [address] [id number] [place] [address]- 0306 Apr, [facility] [address] [id number] [place] [address]- 7560 Mar, [facility] [place] [facility] [address] [id number] [place] [address]- 3110 Mar, [facility] [address] [id number] [place] [address]- 9576 February, [facility] [address] [id number] [place] [address]- 9792 Dec, [facility] [address] [id number] [place] [address]- 9608 Dec, [facility] [address] [id number] [place] [address]- 7658 Dec, [facility] [place] [facility] [address] [id number] [place] [address]- 3967 Oct, [facility] [address] [id number] [place] [address]- 9198 Oct, [facility] [place] [facility] [address] [id number] [place] [address]- 2546 Sep, [facility] [place] [facility] [address] [id number] [place] [address]- 2546 Aug, [facility] [address] [id number] [place] [address]- 0086 Aug, [facility] [place] [facility] [address] [id number] [place] [address]- 7992 Aug, [facility] [place] [facility] [address] [id number] [place] [address]- 9401 Aug, [facility] [place] [facility] [address] [id number] [place] 2411 Aug, [facility] [place] [facility] [address] [id number] [place] [address]- 0496 Aug, [facility] [place] [facility] [address] [id number] [place] 6687 Aug, [facility] [place] [facility] [address] [id number] [place] [address]- 0391 Jul, [facility] [place] [facility] [address] [id number] [place] [address]- 6035 Jul, [facility] [place] [facility] [address] [id number] [place] [address]- 7995 Jul, [facility] [place] [facility] [address] [id number] [place] [address]- 2519 Jun, [facility] [place] [facility] [address] [id number] [address]- 4439 Apr, [facility] [place] [facility] [address] [id number] [place] [address]- 4661 Apr, [facility] [place] [facility] [address] [id number] [place] [address]- 3056 Apr, [facility] [place] [facility] [address] [id number] [place] [address]- 2034 Mar, [facility] [place] [facility] [address] [id number] [place] [address]- 0169 Mar, [facility] [place] [facility] [address] [id number] [place] [address]- 3372 Jan, [facility] [place] [facility] [address] [id number] [place] [address]- 0855 Dec, [facility] [place] [facility] [address] [id number] [place] [address]- 9840 15 May, 2011 [facility] [place] [facility] [address] [id number] [place] [address]- 1270 Sep, [facility] [place] [facility] [address] [id number] [place] [address]- 9966 16 Sep, 2010 [facility] [place] [facility] [address] [id number] [place] [address]- 3369 Aug, [facility] [place] [facility] [address] [id number] [place] [address]- 6062 Jul, [facility] [place] [facility] [address] [id number] [place] [address]- 2770 Jul, [facility] [place] [facility] [address] [id number] [place] [address]- 8544 15 Apr, 2010 [facility] [place] [facility] [address] [id number] [place] [address]- 7620 Jan, [facility] [place] [facility] [address] [id number] [place] [address]- 1673 Aug, [facility] [place] [facility] [address] [facility] [id number] [place] [address]- 6542 Aug, [facility] [place] [facility] [address] [id number] [place] [address]- 2034 07 Aug, 2009 [facility] [place] [facility] [address] [id number] [place] [address]- 2545 06 Aug, 2009 [facility] [place] [facility] [address] [id number] [place] [address]- 6799 29 Jul, 2009 [facility] [place] [facility] [address] [id number] [place] [address]- 9307 10 May, 2009 [facility] [place] [facility] [address] [id number] [place] [address]- 5358 15 Apr, 2009 [facility] [place] [facility] [address] [facility] [id number] [place] [address]- 8373 February, [facility] [address] [facility] [id number] [place] [address]608 Dec, IMMUNIZATIONS No Known Immunizations SOCIAL HISTORY Never Assessed REASON FOR VISIT med refill PLAN OF CARE VITAL SIGNS MEDICATIONS Medication Instructions Dosage Frequency Start Date End Date Duration Status BusPIRone HCl 15 mg Orally 3 times a day 1 tablet 8h May, Active RESULTS No Results PROCEDURES No Known procedures INSTRUCTIONS MEDICATIONS ADMINISTERED No Known Medications MEDICAL (GENERAL) HISTORY Type Description Date Medical History migraine headaches Medical History Unspecified backache Surgical History Hysterectomy 2002 Surgical History Bladder surgeries x 3 Hospitalization History Pneumonia 2013 Hospitalization History kidney stones 2013
--- OUTSIDE RECORDS SUMMARY | 2018-03-16 07:34 | XMS REPORT ---
Author Author DEONDRE SHAFFER [facility] Address [address] [place] [address] Care Team Providers Care Scrap Worker Name Role Phone DEONDRE SHAFFER Unavailable PROBLEMS Type Condition ICD9-CM Code OYW32-RW Code Onset Dates Condition Status SNOMED Code Problem Benzodiazepine dependence F13.20 Active 230117790 Problem Lumbago with sciatica, unspecified side M54.40 Active 791518486 Problem Essential hypertension I10 Active 40362546 Problem Migraine G43.909 Active 96441267 Problem Arthritis M19.90 Active 7112812 Problem Hypertension I10 Active 87348194 Problem Psoriasis L40.9 Active 4637094 Problem Gastroesophageal reflux disease without esophagitis K21.9 Active 963211577 Problem Anxiety F41.9 Active 74727853 Problem Other chronic pain G89.29 Active 69330376 Problem Affective disorder F39 Active 29152706 Problem Moderate episode of recurrent major depressive disorder F33.1 Active 544370112 ALLERGIES No Information ENCOUNTERS Encounter Location Date Diagnosis [place] [id number] [place] [address] 77106- 3646 Dec, [place] [id number] [place] [address] 42046- 6719 Nov, Psoriasis L40.9 [facility] [id number] [place] [address] 90188- 0635 Nov, [facility] [id number] [place] [address] 13873- 3035 Nov, Anxiety F41.9 [facility] [address] 00642- 4947 Oct, [facility] [id number] [place] [address] 02255- 0277 Oct, [place] [id number], [place] [address] 8273 Oct, [facility] [address], [place] [address]- 0714 Oct, [facility] [id number], [place] [address] 8009 Sep, [facility] [id number] [place] [address] 34905- 5597 Sep, [facility] [address] [id number] Aug, Dental examination Z01.20 and Dental caries K02.9 [facility] [id number] [place] [address] 74431- 0002 Aug, [facility] [id number] [place] [address] 68101- 8309 Jul, [facility] [address], [place] [address]- 4508 Jul, [facility] [id number] [place] [address] 31619- 3929 Jul, Moderate episode of recurrent major depressive disorder F33.1 [facility] [address], [place] [address]- 3366 18 Jun, 2017 Moderate episode of recurrent major depressive disorder F33.1 and Anxiety F41.9 [facility] [address], [place] [address]- 0010 14 Jun, 2017 [facility] [address], [place] [address]- 2548 11 Jun, 2017 Anxiety F41.9 [facility] [address], [place] [address]- 0346 Jun, Moderate episode of recurrent major depressive disorder F33.1 [facility] [address], [place] [address]- 0974 Jun, [facility] [id number] [place] [address] 11198- 5568 May, Moderate episode of recurrent major depressive disorder F33.1 [facility] [id number] [place] [address] 14318 -0716 May, [facility] [id number] [place] [address] 67166- 6472 May, Encounter for well woman exam with routine gynecological exam Z01.419 and Anxiety F41.9 [facility] [id number] [place] [address] 07943- 2596 Apr, [place] [address] 14091- 7833 Mar, Affective disorder F39 ; Benzodiazepine dependence F13.20 and High risk sexual behavior Z72.51 [facility] [id number] [place] [address] 16961- 4842 Jan, Dyspepsia R10.13 ; Gastroesophageal reflux disease without esophagitis K21.9 and Affective disorder F39 [facility] [id number] [place] [address] 15897- 9309 Jan, Affective disorder F39 [facility] [id number] [place] [address] 15346- 7656 10 Dec, 2016 Moderate episode of recurrent major depressive disorder F33.1 [facility] [id number] [place] [address] 23850- 3175 14 Nov, 2016 Unspecified episodic mood disorder F39 and Essential hypertension I10 [facility] [id number] [place] [address] 04512- 0477 02 Nov, 2016 Affective disorder F39 ; Anxiety F41.9 and Unspecified episodic mood disorder F39 [facility] [id number] [place] [address] 79793- 7319 Oct, [facility] [id number] [place] [address] 46910- 1384 Oct, [facility] [address] [place] [place] [id number] Sep, Dysuria R30.0 [facility] [id number] [place] [address] 76849- 4139 Sep, [facility] [id number] [place] [address] 02590- 0491 Aug, [facility] [address] 62862- 3970 Aug, [facility] [id number] [place] [address] 09185- 1324 Jul, [facility] [id number] [place] [address] 46853 -3343 Jul, Acute non-recurrent maxillary sinusitis J01.00 and Dysuria R30.0 [facility] [address] 89595- 4187 Jul, Affective disorder F39 ; Essential hypertension I10 ; Lumbago with sciatica, unspecified side M54.40 ; Other chronic pain G89.29 and Acute vaginitis N76.0 [facility] [id number] [place] [address] 86535- 7027 Jun, [facility] [id number] [place] [address] 62395- 8854 Jun, [facility] [id number] [place] [address] 12562- 0793 Jun, [facility] [id number] [place] [address] 57895 -5295 May, Anxiety F41.9 [facility] [id number] [place] [address] 94226- 5043 May, [facility] [id number] [place] [address] 89177- 8060 May, [facility] [id number] [place] [address] 40868- 9023 Apr, [facility] [id number] [place] [address] 69195- 3610 Apr, Affective disorder F39 [facility] [id number] [place] [address] 09495- 9227 Apr, [facility] [id number] [place] [address] 26499- 4806 Apr, 2016 Unspecified episodic mood disorder F39 [facility] [id number] [place] [address] 10631- 4027 Jan, Hypertension I10 [facility] [id number] [place] [address] 63256- 0942 Jan, Benzodiazepine dependence F13.20 and Arthritis M19.90 [facility] [id number] [place] [address] 54140- 1745 Nov, [facility] [id number] [place] [address] 53616- 8487 Jul, Migraine G43.909 ; Hypertension I10 and Arthritis M19.90 [facility] [id number] [place] [address] 53711- 2520 Jun, [facility] [id number] [place] [address] 99885- 3721 Jun, [facility] [id number] [place] [address] 86111- 6489 Jun, [facility] [id number] [place] [address] 69492- 0882 May, [facility] [id number] [place] [address] 50234- 7885 Jan, [facility] [id number] [place] [address] 82275- 7348 Jan, [facility] [id number] [place] [address] 78046- 6430 Nov, [facility] [place] [facility] [address] [id number] [place] [address]- 1442 Nov, [facility] [place] [facility] [address] [id number] [place] [address]- 3164 Oct, [facility] [place] [facility] [address] [id number] [place] [address]- 1442 Oct, [facility] [place] [facility] [address] [id number] [place] [address]- 6065 Oct, [facility] [place] [facility] [address] [id number] [place] [address]- 2961 Oct, [facility] [place] [facility] [address] [id number] [place] [address]- 2425 Aug, [facility] [place] [facility] [address] [id number] [place] [address]- 6112 Aug, [facility] [place] [facility] [address] [id number] [place] [address]- 9278 Aug, [facility] [place] [facility] [address] [id number] [place] [address]- 4328 Aug, [facility] [place] [facility] [address] [id number] [place] [address]- 8731 Aug, [facility] [place] [facility] [address] [id number] [place] [address]- 9607 Aug, [facility] [place] [facility] [address] [id number] [place] [address]- 5557 Aug, [facility] [place] [facility] [address] [id number] [place] [address]- 9279 May, [facility] [place] [facility] [address] [id number] [place] [address]- 8903 May, [facility] [place] [facility] [address] [id number] [place] [address]- 3242 May, [facility] [place] [facility] [address] [id number] [place] [address]- 3748 May, [facility] [place] [facility] [address] [id number] [place] [address]- 7480 May, [facility] [place] [facility] [address] [id number] [place] [address]- 4842 Apr, [facility] [place] [facility] [address] [id number] [place] [address]- 0949 Apr, [facility] [place] [facility] [address] [id number] [place] [address]- 2024 Apr, [facility] [place] [facility] [address] [id number] [place] [address]- 2046 Apr, [facility] [place] [facility] [address] [id number] [place] [address]- 9505 Apr, [facility] [place] [facility] [address] [id number] [place] [address]- 2414 Apr, [facility] [place] [facility] [address] [id number] [place] [address]- 8169 Apr, [facility] [place] [facility] [address] [id number] [place] [address]- 6122 Apr, [facility] [place] [facility] [address] [id number] [place] [address]- 6456 Mar, [facility] [place] [facility] [address] [id number] [place] [address]- 7747 Mar, [facility] [place] [facility] [address] [id number] [place] [address]- 0572 Mar, [facility] [place] [facility] [address] [id number] [place] [address]- 9536 Mar, [facility] [place] [facility] [address] [id number] [place] [address]- 2196 Mar, [facility] [place] [facility] [address] [id number] [place] [address]- 3466 Mar, [facility] [place] [facility] [address] [id number] [place] [address]- 5988 Mar, [facility] [place] [facility] [address] [id number] [place] [address]- 8528 February, [facility] [place] [facility] [address] [id number] [place] [address]- 4106 February, [facility] [place] [facility] [address] [id number] [place] [address]- 8143 Jan, [facility] [place] [facility] [address] [id number] [place] [address]- 2115 Jan, [facility] [place] [facility] [address] [id number] [place] [address]- 5964 Jan, [facility] [place] [facility] [address] [id number] [place] [address]- 4007 Jan, [facility] [place] [facility] [address] [id number] [place] [address]- 4314 Jan, [facility] [place] [facility] [address] [id number] [place] [address]- 6444 Jan, [facility] [place] [facility] [address] [id number] [place] [address]- 4133 Dec, [facility] [place] [facility] [address] [id number] [place] [address]- 9504 Dec, [facility] [place] [facility] [address] [id number] [place] [address]- 9884 Dec, [facility] [place] [facility] [address] [id number] [place] [address]- 1015 Nov, [facility] [place] [facility] [address] [id number] [place] [address]- 0129 Nov, [facility] [place] [facility] [address] [id number] [place] [address]- 2813 Nov, [facility] [place] [facility] [address] [id number], [place] [address]- 9361 Nov, [facility] [place] [facility] [address] [id number] [place] [address]- 7869 Oct, [facility] [place] [facility] [address] [id number] 3712 Oct, [facility] [place] [facility] [address] [id number] [place] [address]- 7372 Oct, [facility] [place] [facility] [address] [id number] [place] [address]- 7113 Oct, [facility] [place] [facility] [address] [id number] [place] [address]- 9458 Oct, [facility] [place] [facility] [address] [id number] [place] [address]- 0679 Oct, [facility] [place] [facility] [address] [id number], [place] [address]- 3538 Sep, [facility] [place] [facility] [address] [id number], [place] [address]- 6462 Sep, [facility] [place] [facility] [address] [id number], [place] [address]- 5837 Aug, [facility] [place] [facility] [address] [id number], [place] [address]- 0412 Aug, [facility] [place] [facility] [address] [id number], [place] [address]- 8179 Aug, [facility] [place] [facility] [address] [id number], [place] [address]- 3142 Aug, [facility] [place] [facility] [address] [id number], [place] [address]- 9129 Jul, [facility] [place] [facility] [address] [id number], [place] [address]- 0944 Jul, [facility] [place] [facility] [address] [id number], [place] [address]- 0554 Jul, [facility] [place] [facility] [address] [id number] [place] [address]- 6765 Jul, [facility] [address] [id number] [place] [address]- 4458 Jul, [facility] [place] [facility] [address] [id number] [place] [address]- 3803 Apr, [facility] [address] [id number] [place] [address]- 9528 Apr, [facility] [place] [facility] [address] [id number] [place] [address]- 8909 Mar, [facility] [address] [id number] [place] [address]- 9208 Mar, [facility] [address] [id number] [place] [address]- 8706 February, [facility] [address] [id number] [place] [address]- 5365 Dec, [facility] [address] [id number] [place] [address]- 4358 Dec, [facility] [address] [id number] [place] [address]- 3071 Dec, [facility] [address] [id number] [place] [address]- 9218 Oct, [facility] [address] [id number] [place] [address]- 4327 Oct, [facility] [address] [id number] [place] [address]- 6632 Sep, [facility] [place] [facility] [address] [id number] [place] [address]- 0460 Aug, [facility] [place] [facility] [address] [id number] [place] [address]- 5776 Aug, [facility] [address] [id number] [place] [address]- 4606 Aug, [facility] [place] [facility] [address] [id number] [place] [address]- 6466 Aug, [facility] [place] [facility] [address] [id number] [place] [address]- 3297 Aug, [facility] [place] [facility] [address] [id number] [place] [address]- 9776 Aug, [facility] [place] [facility] [address] [id number] [place] [address]- 6550 Aug, [facility] [place] [facility] [address] [id number] [place] 7395 Jul, [facility] [place] [facility] [address] [id number] [place] [address]- 9262 Jul, [facility] [place] [facility] [address] [id number] [place] [address]- 1299 Jul, [facility] [place] [facility] [address] [id number] [place] [address]- 9408 Jun, [facility] [place] [facility] [address] [id number] [place] [address]- 4072 Apr, [facility] [place] [facility] [address] [id number], [place] [address]- 4072 Apr, [facility] [place] [facility] [address] [id number], [place] [address]- 6489 Apr, [facility] [place] [facility] [address] [id number], [place] [address]- 8538 Mar, [facility] [place] [facility] [address] [id number] [place] [address]- 9342 Mar, [facility] [place] [facility] [address] [id number], [place] [address]- 9371 Jan, [facility] [place] [facility] [address] [id number] [place] [address]- 6244 Dec, [facility] [place] [facility] [address] [id number] [place] [address]- 1641 15 May, 2011 [facility] [place] [facility] [address] [id number] [place] [address]- 2744 21 Sep, 2010 [facility] [place] [facility] [address] [id number] [place] 5056 16 Sep, 2010 [facility] [place] [facility] [address] [id number] [place] [address]- 9692 Aug, [facility] [place] [facility] [address] [id number] [place] [address]- 6179 Jul, [facility] [place] [facility] [address] [id number] [place] [address]- 7463 Jul, [facility] [place] [facility] [address] [id number] [place] [address]- 3794 15 Apr, 2010 [facility] [place] [facility] [address] [id number] [place] [address]- 6831 Jan, [facility] [place] [facility] [address] [id number] [place] [address]- 2251 Aug, [facility] [place] [facility] [address] [id number] [place] [address]- 0053 Aug, [facility] [place] [facility] [address] [id number] [place] [address]- 2831 Aug, [facility] [place] [facility] [address] [id number] [place] [address]- 3425 Aug, [facility] [place] [facility] [address] [id number] [place] [address]- 1910 Jul, [facility] [place] [facility] [address] [id number] [place] [address]- 1668 May, [facility] [place] [facility] [address] [id number] [place] [address]- 7851 15 Apr, 2009 [facility] [place] [facility] [address] [id number] [place] [address]- 7478 February, [facility] [place] [facility] [address] [facility] [id number] [place] [address]- 0850 Dec, IMMUNIZATIONS No Known Immunizations SOCIAL HISTORY Never Assessed REASON FOR VISIT Medication refills PLAN OF CARE VITAL SIGNS MEDICATIONS Medication Instructions Dosage Frequency Start Date End Date Duration Status Wellbutrin SR 150 MG Orally twice a day 1 tablet daily for 5 days, then one tablet twice daily 12h 30 days Active RESULTS No Results PROCEDURES No Known procedures INSTRUCTIONS MEDICATIONS ADMINISTERED No Known Medications MEDICAL (GENERAL) HISTORY Type Description Date Medical History migraine headaches Medical History Unspecified backache Surgical History Hysterectomy 2002 Surgical History Bladder surgeries x 3 Hospitalization History Pneumonia 2013 Hospitalization History kidney stones 2013
--- OUTSIDE RECORDS SUMMARY | 2018-03-16 07:35 | XMS REPORT ---
Author Author ZA CHAPMAN [facility] e[employer] Address Unknown Phone Unavailable Care Team Providers Care Animal Impersonator Name Role Phone ZA CHAPMAN CP Unavailable Allergies, Adverse Reactions, Alerts Substance Reaction Event Type Levaquin rash Drug Allergy Tramadol Narc alert Drug Allergy Problems Problem Type Condition Code Onset Dates Condition Status Problem Depressive disorder, not elsewhere classified 311 Active Problem Arthritis M19.90 Active Problem Other psoriasis 696.1 Active Assessment Dysuria R30.0 Active Assessment Acute non-recurrent maxillary sinusitis J01.00 Active Problem Lumbago with sciatica, unspecified side M54.40 Active Problem Other chronic pain G89.29 Active Problem Essential hypertension I10 Active Problem Migraine G43.909 Active Problem Hypertension I10 Active Problem Affective disorder F39 Active Problem Benzodiazepine dependence F13.20 Active Medications Medication Code System Code Instructions Start Date End Date Status Dosage Atenolol [facility] [address]-51 50 mg Orally Once a day Jul 22, 2016 1 tablet Bactrim DS [facility] [address]-02 800-160 MG Orally Twice a day Jul 26, 2016 Aug 05, 2016 1 tablet Trazodone HCl [facility] [address]-11 100 MG Orally Once a day Jul 22, 2016 1 tablet at bedtime Imitrex [facility] [address]-32 50 MG Orally 2 times a day Aug 03, 2015 1 tablet as needed one time Clonidine HCl [facility] [address]-47 0.1 MG Orally 2 times a day TAKE ONE TABLET BY MOUTH TWICE DAILY (PLEASE MAKE FOLLOW-UP APPOINTMENT) BuSpar NDC 0 5 mg Orally Three times a day 1 tablet Neurontin [facility] [address]-02 800 MG Orally 4 times a day January 28, 2014 1 tablet Seroquel XR [facility] 34950798004 300 MG Orally Once a day 1 tablet in the evening Procedures Procedure Coding System Code Date Office Visit, Est Pt., Level 3 CPT-4 50754 Jul 26, 2016 URINALYSIS, AUTO, W/O SCOPE CPT-4 93896 Jul 26, 2016 Vital Signs Date/Time: Jul 26, 2016 Cardiac Monitoring Heart Rate 82 bpm Weight 160.0 lbs Height 67 in BMI 25.06 Index Blood Pressure Diastolic 100 mmHg Blood Pressure Systolic 142 mmHg Results Name Result Date Reference Range Unit Abnormality Flag UA LONG DIP (IN HOUSE) ----DEYA negative 20160726 ----NIT negative 20160726 ----Exp date 20160726 ----Lot # [id number] ----SG 1.025 20160726 ----KET negative 20160726 ----ISIDRA negative 20160726 ----GLU negative 20160726 ----Odor none 20160726 ----pH 7.0 20160726 ----BLO negative 20160726 ----URO 0.2 20160726 ----Protein negative 20160726 ----Lot # [id number] ----Exp date 20160726 ----Clarity turbid 20160726 ----Color yellow [id number] Summary Purpose eClinicalWorks Submission
--- OUTSIDE RECORDS SUMMARY | 2018-03-16 07:35 | XMS REPORT ---
Author Author DEONDRE SHAFFER [facility] e[employer]Works Address Unknown Phone Unavailable Care Team Providers Care Ski Instructor Name Role Phone DEONDRE SHAFFER CP Unavailable [...] Status Dosage Seroquel XR [facility] [address]-31 300 MG Orally Once a day Dec 12, 2014 1 tablet in the evening Results No Known Results Summary Purpose eClinicalWorks Submission
--- OUTSIDE RECORDS SUMMARY | 2018-03-16 07:35 | XMS REPORT ---
Author Author DEONDRE SHAFFER Organization [facility] Address [address] [place] [address] Care Team Providers Care Nuclear Supervising Operator Name Role Phone DEONDRE SHAFFER Unavailable PROBLEMS Type Condition ICD9-CM Code CPW01-EV Code Onset Dates Condition Status SNOMED Code Problem Benzodiazepine dependence F13.20 Active 915736238 Problem Lumbago with sciatica, unspecified side M54.40 Active 862338828 Problem Essential hypertension I10 Active 57119670 Problem Migraine G43.909 Active 44123693 Problem Arthritis M19.90 Active 1488210 Problem Hypertension I10 Active 35487931 Problem Psoriasis L40.9 Active 0030537 Problem Gastroesophageal reflux disease without esophagitis K21.9 Active 138579799 Problem Anxiety F41.9 Active 32820492 Problem Other chronic pain G89.29 Active 72147282 Problem Affective disorder F39 Active 30346001 Problem Moderate episode of recurrent major depressive disorder F33.1 Active 494325328 ALLERGIES No Information ENCOUNTERS Encounter Location Date Diagnosis [place] [id number] [place] [address] 67753- 8021 Jan, [facility] [id number] [place] [address] 82565- 1454 Dec, [facility] [id number] [place] [address] 93193- 3180 Nov, Psoriasis L40.9 [facility] [id number] [place] [address] 97373- 1456 Nov, [facility] [id number] [place] [address] 79792- 0243 Nov, Anxiety F41.9 [facility] [id number] [place] [address] 90763- 9079 Oct, [facility] [address] [address] 9130 Oct, [facility] [address] [facility] [id number] [address] 7446 Oct, [facility] [address] [address] 4157 Oct, [facility] [id number] [place] [address] 38747- 9746 Sep, [facility] [address], [place] [address] 1235 Sep, [facility] [id number] [place] [address] [id number] Aug, Dental examination Z01.20 and Dental caries K02.9 [facility] [address], [place] [address] 3999 Aug, [facility] [id number] [place] [address] 63294- 9035 Jul, [facility] [address], [place] [address]- 3515 Jul, [facility] [address] [address]- 6403 Jul, Moderate episode of recurrent major depressive disorder F33.1 [facility] [address], [place] [address] 7305 18 Jun, 2017 Moderate episode of recurrent major depressive disorder F33.1 and Anxiety F41.9 [facility] [address], [place] [address]- 5776 14 Jun, 2017 [facility] [address], [place] [address]- 5066 11 Jun, 2017 Anxiety F41.9 [facility] [address] [address]- 7718 Jun, Moderate episode of recurrent major depressive disorder F33.1 [facility] [id number] [place] [address] 57506- 8486 Jun, [facility] [id number] [place] [address] 10224- 0479 May, Moderate episode of recurrent major depressive disorder F33.1 [facility] [id number] [place] [address] 16650 -4256 May, [facility] [address] 43769- 7102 May, Encounter for well woman exam with routine gynecological exam Z01.419 and Anxiety F41.9 [place] [address] 12934- 0765 Apr, [place] [address] [place] [id number] [place] [address] 91527- 7884 Mar, Affective disorder F39 ; Benzodiazepine dependence F13.20 and High risk sexual behavior Z72.51 [facility] [address] [id number] [place] [address] 11299- 2678 Jan, Dyspepsia R10.13 ; Gastroesophageal reflux disease without esophagitis K21.9 and Affective disorder F39 [place] [address] [id number] [place] [address] 16022- 9555 Jan, Affective disorder F39 [place] [address] [id number] [place] [address] 90757- 2594 Dec, Moderate episode of recurrent major depressive disorder F33.1 [facility] [id number] [place] [address] 33002- 3071 14 Nov, 2016 Unspecified episodic mood disorder F39 and Essential hypertension I10 [place] [address] [id number] [place] [address] 89752- 0387 02 Nov, 2016 Affective disorder F39 ; Anxiety F41.9 and Unspecified episodic mood disorder F39 [place] [address] [id number] [place] [address] 36371- 8572 Oct, [facility] [address], [place] [address]- 1457 Oct, [facility] [address] [place] [place] [id number] Sep, Dysuria R30.0 [facility] [id number] [place] [address] 75392- 1642 Sep, [facility] [id number] [place] [address] 89880- 3850 Aug, [facility] [id number] [place] [address] 01621- 0354 Aug, [facility] [id number] [place] [address] 72474- 3748 Jul, [facility] [id number] [place] [address] 77202 -4626 Jul, Acute non-recurrent maxillary sinusitis J01.00 and Dysuria R30.0 [facility] [id number] [place] [address] 10594- 8829 Jul, Affective disorder F39 ; Essential hypertension I10 ; Lumbago with sciatica, unspecified side M54.40 ; Other chronic pain G89.29 and Acute vaginitis N76.0 [facility] [id number] [place] [address] 91497- 3321 Jun, [facility] [id number] [place] [address] 24400- 5391 Jun, [facility] [id number] [place] [address] 19698- 4029 Jun, [facility] [id number] [place] [address] 30249 -7815 May, Anxiety F41.9 [facility] [id number] [place] [address] 98720- 8600 May, [facility] [id number] [place] [address] 15856- 0508 May, [facility] [address] [place] [address] 70980- 2753 Apr, [facility] [id number] [place] [address] 70527- 1702 Apr, Affective disorder F39 [facility] [id number] [place] [address] 89161- 4097 Apr, [facility] [id number] [place] [address] 42590- 5241 Apr, Unspecified episodic mood disorder F39 [facility] [id number] [place] [address] 14198- 6871 Jan, Hypertension I10 [facility] [id number] [place] [address] 04785- 3446 Jan, Benzodiazepine dependence F13.20 and Arthritis M19.90 [facility] [id number] [place] [address] 19275- 4700 Nov, [facility] [id number] [place] [address] 56659- 1192 Jul, Migraine G43.909 ; Hypertension I10 and Arthritis M19.90 [facility] [id number] [place] [address] 97100- 1289 Jun, [facility] [id number] [place] [address] 84278- 6583 Jun, [facility] [address] [place] [address] 86605- 0700 Jun, [facility] [id number] [place] [address] 98699- 7203 May, [facility] [id number] [place] [address] 59198- 5429 14 Jan, 2015 [facility] [id number] [place] [address] 26120- 5936 Jan, [facility] [place] [facility] [address] [id number] [place] [address]- 9343 Nov, [facility] [place] [facility] [address] [id number] [place] [address]- 4797 Nov, [facility] [place] [facility] [address] [id number] [place] [address]- 3831 Oct, [facility] [place] [facility] [address] [id number] [place] [address]- 5916 Oct, [facility] [place] [facility] [address] [id number] [place] [address]- 7696 Oct, [facility] [place] [facility] [address] [id number] [place] [address]- 9050 Oct, [facility] [place] [facility] [address] [id number] [place] [address]- 9863 Aug, [facility] [place] [facility] [address] [id number] [place] [address]- 1328 Aug, [facility] [place] [facility] [address] [id number] [place] [address]- 0066 Aug, [facility] [place] [facility] [address] [id number] [place] [address]- 7000 Aug, [facility] [place] [facility] [address] [id number] [place] [address]- 3646 Aug, [facility] [place] [facility] [address] [id number], [place] [address]- 5421 Aug, [facility] [place] [facility] [address] [id number] [place] [address]- 8209 Aug, [facility] [place] [facility] [address] [id number] [place] [address]- 6866 May, [facility] [place] [facility] [address] [id number] [place] [address]- 8017 May, [facility] [place] [facility] [address] [id number] [place] [address]- 7944 May, [facility] [place] [facility] [address] [id number] [place] [address]- 2851 May, [facility] [place] [facility] [address] [id number] [place] [address]- 5404 May, [facility] [place] [facility] [address] [id number] [place] [address]- 5402 Apr, [facility] [place] [facility] [address] [id number] [place] [address]- 8110 Apr, [facility] [place] [facility] [address] [id number] [place] [address]- 6290 Apr, [facility] [place] [facility] [address] [id number] [place] [address]- 0752 Apr, [facility] [place] [facility] [address] [id number] [place] [address]- 9969 Apr, [facility] [place] [facility] [address] [id number] [place] [address]- 5088 Apr, [facility] [place] [facility] [address] [id number] [place] [address]- 2725 Apr, [facility] [place] [facility] [address] [id number] [place] [address]- 3978 Apr, [facility] [place] [facility] [address] [id number] [place] [address]- 9367 Mar, [facility] [place] [facility] [address] [id number] [place] [address]- 5375 Mar, [facility] [place] [facility] [address] [id number] [place] [address]- 2084 Mar, [facility] [place] [facility] [address] [id number] [place] [address]- 7158 Mar, [facility] [place] [facility] [address] [id number] [place] [address]- 6124 Mar, [facility] [place] [facility] [address] [id number] [place] [address]- 5183 Mar, [facility] [place] [facility] [address] [id number] [place] [address]- 0353 Mar, [facility] [place] [facility] [address] [id number] [place] [address]- 0514 February, [facility] [place] [facility] [address] [id number] [place] [address]- 8719 February, [facility] [place] [facility] [address] [id number] [place] [address]- 0993 Jan, [facility] [place] [facility] [address] [id number] [place] [address]- 7102 Jan, [facility] [place] [facility] [address] [id number] [place] [address]- 0339 Jan, [facility] [place] [facility] [address] [id number] [place] [address]- 2104 Jan, [facility] [place] [facility] [address] [id number] [place] [address]- 6932 Jan, [facility] [place] [facility] [address] [id number] [place] [address]- 5146 Jan, [facility] [place] [facility] [address] [id number] [place] [address]- 5293 Dec, [facility] [place] [facility] [address] [id number] [place] [address]- 8567 Dec, [facility] [place] [facility] [address] [id number] [place] [address]- 5963 Dec, [facility] [place] [facility] [address] [id number] [place] [address]- 4949 Nov, [facility] [place] [facility] [address] [id number] [place] [address]- 8839 Nov, [facility] [place] [facility] [address] [id number] [place] [address]- 5872 Nov, [facility] [place] [facility] [address] [id number] [place] [address]- 7743 Nov, [facility] [place] [facility] [address] [id number] [place] [address]- 3865 Oct, [facility] [place] [facility] [address] [id number] [place] [address]- 5241 Oct, [facility] [place] [facility] [address] [id number] [place] [address]- 0801 Oct, [facility] [place] [facility] [address] [id number] [place] [address]- 3549 Oct, [facility] [place] [facility] [address] [id number] [place] [address]- 5439 Oct, [facility] [place] [facility] [address] [id number] [place] [address]- 8359 Oct, [facility] [place] [facility] [address] [id number] [place] [address]- 9786 Sep, [facility] [place] [facility] [address] [id number], [place] [address]- 9424 Sep, [facility] [place] [facility] [address] [id number], [place] [address]- 0457 Aug, [facility] [place] [facility] [address] [id number], [place] [address]- 7676 Aug, [facility] [place] [facility] [address] [id number], [place] [address]- 0211 Aug, [facility] [place] [facility] [address] [id number], [place] [address]- 8479 Aug, [facility] [place] [facility] [address] [id number], [place] [address]- 3842 Jul, [facility] [place] [facility] [address] [id number] [place] [address]- 8077 Jul, [facility] [place] [facility] [address] [id number] [place] [address]- 7096 Jul, [facility] [address] [id number] [place] [address]- 5999 Jul, [facility] [place] [facility] [address] [id number] [place] [address]- 2546 Jul, [facility] [address] [id number] [place] [address]- 5631 Apr, [facility] [place] [facility] [address] [id number] [place] [address]- 8848 Apr, [facility] [address] [id number] [place] [address]- 5040 Mar, [facility] [place] [facility] [address] [id number] [place] [address]- 0627 Mar, [facility] [address] [id number] [place] [address]- 8170 February, [facility] [address] [id number] [place] [address]- 3156 Dec, [facility] [address] [id number] [place] [address]- 3723 Dec, [facility] [address] [id number] [place] [address]- 8576 Dec, [facility] [place] [facility] [address] [id number] [place] [address]- 2782 Oct, [facility] [address] [id number] [place] [address]- 2316 Oct, [facility] [place] [facility] [address] [id number] [place] [address]- 2546 Sep, [facility] [place] [facility] [address] [id number] [place] [address]- 2546 Aug, [facility] [address] [id number] [place] [address]- 8678 Aug, [facility] [place] [facility] [address] [id number] [place] [address]- 7527 Aug, [facility] [place] [facility] [address] [id number] [place] [address]- 4006 Aug, [facility] [place] [facility] [address] [id number] [place] 6111 Aug, [facility] [place] [facility] [address] [id number] [place] [address]- 2422 Aug, [facility] [place] [facility] [address] [id number] [place] 4455 Aug, [facility] [place] [facility] [address] [id number] [place] [address]- 8709 Jul, [facility] [place] [facility] [address] [id number] [place] [address]- 3474 Jul, [facility] [place] [facility] [address] [id number] [place] [address]- 5111 Jul, [facility] [place] [facility] [address] [id number] [place] [address]- 7120 Jun, [facility] [place] [facility] [address] [id number], [place] [address]- 6073 Apr, [facility] [place] [facility] [address] [id number], [place] [address]- 8125 Apr, [facility] [place] [facility] [address] [id number], [place] [address]- 2840 Apr, [facility] [place] [facility] [address] [id number] [place] [address]- 5771 Mar, [facility] [place] [facility] [address] [id number], [place] [address]- 7354 Mar, [facility] [place] [facility] [address] [id number] [place] [address]- 7745 Jan, [facility] [place] [facility] [address] [id number] [place] [address]- 1403 Dec, [facility] [place] [facility] [address] [id number] [place] [address]- 5625 15 May, 2011 [facility] [place] [facility] [address] [id number] [place] [address]- 2168 Sep, [facility] [place] [facility] [address] [id number] [place] [address]- 5856 16 Sep, 2010 [facility] [place] [facility] [address] [id number] [place] [address]- 7512 Aug, [facility] [place] [facility] [address] [id number] [place] [address]- 0301 Jul, [facility] [place] [facility] [address] [id number] [place] [address]- 7596 Jul, [facility] [place] [facility] [address] [id number] [place] [address]- 2122 15 Apr, 2010 [facility] [place] [facility] [address] [id number] [place] [address]- 1693 Jan, [facility] [place] [facility] [address] [id number] [place] [address]- 6071 Aug, [facility] [place] [facility] [address] [facility] [id number] [place] [address]- 4253 Aug, [facility] [place] [facility] [address] [id number] [place] [address]- 7611 07 Aug, 2009 [facility] [place] [facility] [address] [id number] [place] [address]- 2545 06 Aug, 2009 [facility] [place] [facility] [address] [id number] [place] [address]- 6753 29 Jul, 2009 [facility] [place] [facility] [address] [id number] [place] [address]- 1133 10 May, 2009 [facility] [place] [facility] [address] [id number], [place] [address]- 7441 15 Apr, 2009 [facility] [place] [facility] [address] [facility] [id number] [place] [address]- 4234 February, [facility] [address] [facility] [id number], [place] [address]- 4632 Dec, IMMUNIZATIONS No Known Immunizations SOCIAL HISTORY Never Assessed REASON FOR VISIT LVM PLAN OF CARE VITAL SIGNS MEDICATIONS Unknown Medications RESULTS No Results PROCEDURES No Known procedures INSTRUCTIONS MEDICATIONS ADMINISTERED No Known Medications MEDICAL (GENERAL) HISTORY Type Description Date Medical History migraine headaches Medical History Unspecified backache Surgical History Hysterectomy 2003 Surgical History Bladder surgeries x 3 Hospitalization History Pneumonia 2014 Hospitalization History kidney stones 2014
--- OUTSIDE RECORDS SUMMARY | 2018-03-16 07:36 | XMS REPORT ---
Author Author MIKE BARAHONA [facility] Address [address] [place] [address] Care Team Providers Care Food Equipment Service Technician Name Role Phone BARAHONAMIKE Crowder Unavailable PROBLEMS Type Condition ICD9-CM Code ZQV76-GS Code Onset Dates Condition Status SNOMED Code Problem Benzodiazepine dependence F13.20 Active 643064193 Problem Lumbago with sciatica, unspecified side M54.40 Active 907811418 Problem Essential hypertension I10 Active 06398580 Problem Migraine G43.909 Active 47984926 Problem Arthritis M19.90 Active 4233569 Problem Hypertension I10 Active 48610470 Problem Psoriasis L40.9 Active 3626209 Problem Gastroesophageal reflux disease without esophagitis K21.9 Active 705262824 Problem Anxiety F41.9 Active 00643086 Problem Other chronic pain G89.29 Active 97500850 Problem Affective disorder F39 Active 94565733 Problem Moderate episode of recurrent major depressive disorder F33.1 Active 996430982 ALLERGIES Substance Reaction Event Type Date Status Levaquin rash Drug Allergy Jun, Active Tramadol Narc alert Drug Allergy Jun, Active ENCOUNTERS Encounter Location Date Diagnosis [facility] [address] [address] Dec, [facility] [address] [address] Nov, Psoriasis L40.9 [facility] [id number] [address] Nov, [facility] [address] [address] Nov, Anxiety F41.9 [facility] [id number] [address] Oct, [facility] [id number] [address] 0926 Oct, [facility] [address] [address] 9[address] Oct, [facility] [address] [address] 29[address] Oct, [facility] [id number] [place] [address] 97234- 0900 Sep, [facility] [id number] [place] [address] 79118- 3395 Sep, [facility] [id number] [place] [address] [id number] Aug, Dental examination Z01.20 and Dental caries K02.9 [facility] [id number] [place] [address] 07292- 2394 Aug, [facility] [id number] [place] [address] 35502- 3182 Jul, [facility] [address] [address] 4[address] Jul, [facility] [id number] [place] [address] 69339- 0162 Jul, Moderate episode of recurrent major depressive disorder F33.1 [facility] [address] [address] 5[address] 18 Jun, 2017 Moderate episode of recurrent major depressive disorder F33.1 and Anxiety F41.9 [facility] [address] [address]- 1068 14 Jun, 2017 [facility] [id number] [place] [address] 55973- 2546 11 Jun, 2017 Anxiety F41.9 [facility] [address] [address] 01 Jun, 2017 Moderate episode of recurrent major depressive disorder F33.1 [facility] [id number] [place] [address] 75719- 1225 Jun, [facility] [address] [address]- [address] May, Moderate episode of recurrent major depressive disorder F33.1 [facility] [id number] [place] [address]8879 -0372 May, [facility] [address] [address]- [address]234 May, Encounter for well woman exam with routine gynecological exam Z01.419 and Anxiety F41.9 [place] [address] [address]- [address] Apr, [place] [address] [address]676- 1592 Mar, Affective disorder F39 ; Benzodiazepine dependence F13.20 and High risk sexual behavior Z72.51 [facility] [address] [address]- [address]693 Jan, Dyspepsia R10.13 ; Gastroesophageal reflux disease without esophagitis K21.9 and Affective disorder F39 [place] [id number] [place] [address] 58309- 1576 Jan, Affective disorder F39 [place] [id number] [place] [address] 62370- 6949 Dec, Moderate episode of recurrent major depressive disorder F33.1 [facility] [id number] [place] [address] 99936- 1858 14 Nov, 2016 Unspecified episodic mood disorder F39 and Essential hypertension I10 [place] [address] [address]- 1433 02 Nov, 2016 Affective disorder F39 ; Anxiety F41.9 and Unspecified episodic mood disorder F39 [place] [id number] [place] [address] 35053- 7554 Oct, [place] [address] [address] Oct, [facility] [address] [place] [id number] Sep, Dysuria R30.0 [facility] [id number] [place] [address] 41200- 9060 Sep, [facility] [id number] [place] [address] 29463- 9584 Aug, [facility] [id number] [place] [address] 20004- 0047 Aug, [facility] [id number] [place] [address] 08484- 4723 Jul, [facility] [id number] [place] [address] 95678 -5373 Jul, Acute non-recurrent maxillary sinusitis J01.00 and Dysuria R30.0 [facility] [id number] [place] [address] 27742- 9901 Jul, Affective disorder F39 ; Essential hypertension I10 ; Lumbago with sciatica, unspecified side M54.40 ; Other chronic pain G89.29 and Acute vaginitis N76.0 [facility] [address] [place] [address] 12207- 7433 Jun, [facility] [id number] [place] [address] 66602- 6104 Jun, [facility] [id number] [place] [address] 78055- 9826 Jun, [facility] [id number] [place] [address] 22882 -8854 May, Anxiety F41.9 [facility] [address] [place] [address] 08541- 7269 May, [facility] [id number] [place] [address] 10741- 1628 May, [facility] [address] [address]- 6765 Apr, [facility] [id number] [place] [address] 93700- 4080 Apr, Affective disorder F39 [facility] [id number] [place] [address] 83948- 8048 Apr, [facility] [id number] [place] [address] 68329- 7888 Apr, Unspecified episodic mood disorder F39 [facility] [id number] [place] [address] 04590- 8826 Jan, Hypertension I10 [facility] [id number] [place] [address] 15847- 8656 Jan, Benzodiazepine dependence F13.20 and Arthritis M19.90 [facility] [id number] [place] [address] 83364- 5256 Nov, [facility] [id number] [place] [address] 60636- 6858 Jul, Migraine G43.909 ; Hypertension I10 and Arthritis M19.90 [facility] [address] [place] [address] 16774- 0986 Jun, [facility] [id number] [place] [address] 17570- 8513 Jun, [facility] [id number] [place] [address] 68880- 0418 Jun, [facility] [id number] [place] [address] 74771- 1658 May, [facility] [id number] [place] [address] 47642- 3753 Jan, [facility] [id number] [place] [address] 06263- 1440 Jan, [facility] [place] [facility] [address] [id number] [place] [address]- 6645 Nov, [facility] [place] [facility] [address] [id number] [place] [address]- 2375 Nov, [facility] [place] [facility] [address] [id number] [place] [address]- 8314 Oct, [facility] [place] [facility] [address] [id number] [place] [address]- 7919 Oct, [facility] [place] [facility] [address] [id number] [place] [address]- 8214 Oct, [facility] [place] [facility] [address] [id number] [place] [address]- 8643 Oct, [facility] [place] [facility] [address] [id number] [place] [address]- 4148 Aug, [facility] [place] [facility] [address] [id number] [place] [address]- 0841 Aug, [facility] [place] [facility] [address] [id number] [place] [address]- 2130 Aug, [facility] [place] [facility] [address] [id number] [place] [address]- 7849 Aug, [facility] [place] [facility] [address] [id number] [place] [address]- 6361 Aug, [facility] [place] [facility] [address] [id number] [place] [address]- 1296 Aug, [facility] [place] [facility] [address] [id number] [place] [address]- 3666 Aug, [facility] [place] [facility] [address] [id number] [place] [address]- 1529 May, [facility] [place] [facility] [address] [id number] [place] [address]- 3496 May, [facility] [place] [facility] [address] [id number] [place] [address]- 8134 May, [facility] [place] [facility] [address] [id number] [place] [address]- 9220 May, [facility] [place] [facility] [address] [id number] [place] [address]- 7438 May, [facility] [place] [facility] [address] [id number] [place] [address]- 4129 Apr, [facility] [place] [facility] [address] [id number] [place] [address]- 7777 Apr, [facility] [place] [facility] [address] [id number] [place] [address]- 2900 Apr, [facility] [place] [facility] [address] [id number] [place] [address]- 7634 Apr, [facility] [place] [facility] [address] [id number] [place] [address]- 0439 Apr, [facility] [place] [facility] [address] [id number] [place] [address]- 0742 Apr, [facility] [place] [facility] [address] [id number] [place] [address]- 9961 Apr, [facility] [place] [facility] [address] [id number] [place] [address]- 5307 Apr, [facility] [place] [facility] [address] [id number] [place] [address]- 6917 Mar, [facility] [place] [facility] [address] [id number] [place] [address]- 9252 Mar, [facility] [place] [facility] [address] [id number] [place] [address]- 1443 Mar, [facility] [place] [facility] [address] [id number] [place] [address]- 3001 Mar, [facility] [place] [facility] [address] [id number] [place] [address]- 5403 Mar, [facility] [place] [facility] [address] [id number] [place] [address]- 6688 Mar, [facility] [place] [facility] [address] [id number] [place] [address]- 9732 Mar, [facility] [place] [facility] [address] [id number] [place] [address]- 1906 February, [facility] [place] [facility] [address] [id number] [place] [address]- 5330 February, [facility] [place] [facility] [address] [id number] [place] [address]- 6365 Jan, [facility] [place] [facility] [address] [id number] [place] [address]- 0454 Jan, [facility] [place] [facility] [address] [id number] [place] [address]- 7472 Jan, [facility] [place] [facility] [address] [id number] [place] [address]- 4524 Jan, [facility] [place] [facility] [address] [id number] [place] [address]- 9625 Jan, [facility] [place] [facility] [address] [id number] [place] [address]- 3433 Jan, [facility] [place] [facility] [address] [id number] [place] [address]- 7462 Dec, [facility] [place] [facility] [address] [id number] [place] [address]- 5505 Dec, [facility] [place] [facility] [address] [id number] [place] [address]- 3571 Dec, [facility] [place] [facility] [address] [id number] [place] [address]- 4226 Nov, [facility] [place] [facility] [address] [id number] [place] [address]- 7506 Nov, [facility] [place] [facility] [address] [id number] [place] [address]- 0664 Nov, [facility] [place] [facility] [address] [id number] [place] [address]- 4878 Nov, [facility] [place] [facility] [address] [id number] [place] [address]- 1799 Oct, [facility] [place] [facility] [address] [id number] [place] [address]- 0891 Oct, [facility] [place] [facility] [address] [id number] [place] [address]- 3646 Oct, [facility] [place] [facility] [address] [id number] [place] [address]- 7444 Oct, [facility] [place] [facility] [address] [id number] [place] [address]- 9736 Oct, [facility] [place] [facility] [address] [id number] [place] [address]- 9488 Oct, [facility] [place] [facility] [address] [id number] [address]- 7483 Sep, [facility] [place] [facility] [address] [id number] [place] [address]- 3157 Sep, [facility] [place] [facility] [address] [id number] [place] [address]- 1362 Aug, [facility] [place] [facility] [address] [id number] [address]- 8479 Aug, [facility] [place] [facility] [address] [id number] [place] [address]- 6988 Aug, [facility] [place] [facility] [address] [id number] [place] [address]- 9298 Aug, [facility] [place] [facility] [address] [id number] [place] [address]- 7147 Jul, [facility] [place] [facility] [address] [id number] [place] [address]- 0198 Jul, [facility] [place] [facility] [address] [id number] [place] [address]- 9851 Jul, [facility] [address] [id number] [place] [address]- 3447 Jul, [facility] [place] [facility] [address] [id number] [place] [address]- 9954 Jul, [facility] [address] [id number] [place] [address]- 3383 Apr, [facility] [place] [facility] [address] [id number] [place] [address]- 5619 Apr, [facility] [address] [id number] [place] [address]- 1858 Mar, [facility] [place] [facility] [address] [id number] [place] [address]- 6044 Mar, [facility] [address] [id number] [place] [address]- 9753 February, [facility] [address] [id number] [place] [address]- 1125 Dec, [facility] [place] [facility] [address] [id number] [place] [address]- 8942 Dec, [facility] [place] [facility] [address] [id number] [place] [address]- 7944 Dec, [facility] [place] [facility] [address] [id number] [place] [address]- 6441 Oct, [facility] [place] [facility] [address] [id number] [place] [address]- 6143 Oct, [facility] [place] [facility] [address] [id number] [place] [address]- 2240 Sep, [facility] [place] [facility] [address] [id number] [place] [address]- 7530 Aug, [facility] [address] [id number] [place] [address]- 8438 Aug, [facility] [place] [facility] [address] [id number] [place] [address]- 4232 Aug, [facility] [place] [facility] [address] [id number] [place] [address]- 0361 Aug, [facility] [place] [facility] [address] [id number] [place] [address]- 4337 Aug, [facility] [place] [facility] [address] [id number] [place] [address], [place] [address]- 7115 Aug, [facility] [place] [facility] [address] [id number] [place] [address]- 0259 Aug, [facility] [place] [facility] [address] [id number] [place] [address]- 2378 Jul, [facility] [place] [facility] [address] [id number] [place] [address]- 2673 Jul, [facility] [place] [facility] [address] [id number] [place] [address]- 4366 Jul, [facility] [place] [facility] [address] [id number] [place] [address]- 5986 Jun, [facility] [place] [facility] [address] [id number] [place] [address]- 8030 Apr, [facility] [place] [facility] [address] [id number] [place] [address]- 5135 Apr, [facility] [place] [facility] [address] [id number] [place] [address]- 5685 Apr, [facility] [place] [facility] [address] [id number] [place] [address]- 1940 Mar, [facility] [place] [facility] [address] [id number] [place] [address]- 5131 Mar, [facility] [place] [facility] [address] [id number] [place] [address]- 9822 Jan, [facility] [place] [facility] [address] [id number] [place] [address]- 6721 Dec, [facility] [place] [facility] [address] [id number] [place] [address]- 3907 15 May, 2011 [facility] [place] [facility] [address] [id number] [place] [address]- 4868 Sep, [facility] [place] [facility] [address] [id number] [place] [address]- 2186 16 Sep, 2010 [facility] [place] [facility] [address] [id number] [place] [address] 2541 Aug, [facility] [place] [facility] [address] [id number] [place] [address]- 2630 Jul, [facility] [place] [facility] [address] [id number] [place] [address]- 1877 Jul, [facility] [place] [facility] [address] [id number] [place] [address]- 8454 Apr, [facility] [place] [facility] [address] [id number] [place] [address]- 5914 Jan, [facility] [place] [facility] [address] [id number] [place] [address]- 8323 Aug, [facility] [place] [facility] [address] [id number] [place] [address]- 2480 Aug, [facility] [place] [facility] [address] [id number] [place] [address]- 1217 Aug, [facility] [place] [facility] [address] [id number] [place] [address]- 7393 Aug, [facility] [place] [facility] [address] [id number] [place] [address]- 7799 29 Jul, 2009 [facility] [place] [facility] [address] [id number] [place] [address]- 7778 May, [facility] [place] [facility] [address] [id number] [place] [address]- 0392 15 Apr, 2009 [facility] [place] [facility] [address] [facility] [id number] [place] [address] February, [facility] [address] [facility] [id number] [address] Dec, IMMUNIZATIONS No Known Immunizations SOCIAL HISTORY Never Assessed REASON FOR VISIT jaw pain--tcuppettRN, -Having jaw pain due to clenching jaw, having high anxiety since switching from Wellbutrin to Trintellix. Would like Wellbutrin back. PLAN OF CARE Activity Details Follow Up 4 Weeks Reason:w/ PCP VITAL SIGNS Height 67 in 2017-07-07 Weight 196.3 lbs 2017-07-07 Temperature 98.5 degrees Fahrenheit 2017-07-07 Heart Rate 88 bpm 2017-07-07 Respiratory Rate 20 2017-07-07 BMI 30.74 kg/m2 2017-07-07 Blood pressure systolic 134 mmHg 2017-07-07 Blood pressure diastolic 92 mmHg 2017-07-07 MEDICATIONS Medication Instructions Dosage Frequency Start Date End Date Duration Status Atenolol 50 mg Orally Once a day 1 tablet 24h 30 Active BusPIRone HCl 15 mg Orally 3 times a day 1 tablet 8h May, Active Neurontin 800 MG Orally 4 times a day 1 tablet 6h 30 Active Wellbutrin SR 150 MG Orally twice a day 1 tablet daily for 5 days, then one tablet twice daily 12h 30 days Active Clonidine HCl 0.1 MG Orally 2 times a day TAKE ONE TABLET BY MOUTH TWICE DAILY (PLEASE MAKE FOLLOW-UP APPOINTMENT) 12h 30 Active Seroquel 300 MG Orally Once a day 1 tablet 24h Active Trazodone HCl 100 mg Orally Once a day 1 tablet at bedtime 24h 30 Active RESULTS No Results PROCEDURES No Known procedures INSTRUCTIONS MEDICATIONS ADMINISTERED No Known Medications MEDICAL (GENERAL) HISTORY Type Description Date Medical History migraine headaches Medical History Unspecified backache Surgical History Hysterectomy 2002 Surgical History Bladder surgeries x 3 Hospitalization History Pneumonia 2013 Hospitalization History kidney stones 2013
--- OUTSIDE RECORDS SUMMARY | 2018-03-16 07:36 | XMS REPORT ---
Author Author DEONDRE SHAFFER Organization [facility] Address [address] [place] [address] Care Team Providers Care Svp Monetization Name Role Phone DEONDRE SHAFFER Unavailable PROBLEMS Type Condition ICD9-CM Code EOO80-VV Code Onset Dates Condition Status SNOMED Code Problem Benzodiazepine dependence F13.20 Active 964192612 Problem Lumbago with sciatica, unspecified side M54.40 Active 572792188 Problem Essential hypertension I10 Active 63446335 Problem Migraine G43.909 Active 00367584 Problem Arthritis M19.90 Active 3327989 Problem Hypertension I10 Active 52882386 Problem Psoriasis L40.9 Active 9959986 Problem Gastroesophageal reflux disease without esophagitis K21.9 Active 653961817 Problem Anxiety F41.9 Active 74323162 Problem Other chronic pain G89.29 Active 70356036 Problem Affective disorder F39 Active 61905097 Problem Moderate episode of recurrent major depressive disorder F33.1 Active 478104058 ALLERGIES No Information ENCOUNTERS Encounter Location Date Diagnosis [place] [id number] [place] [address] 77609- 9874 Jan, [facility] [id number] [place] [address] 43293- 7415 Dec, [facility] [id number] [place] [address] 54397- 4724 Nov, Psoriasis L40.9 [facility] [id number] [place] [address] 03860- 9013 Nov, [facility] [id number] [place] [address] 45588- 9702 Nov, Anxiety F41.9 [facility] [id number] [place] [address] 74778- 6471 Oct, [facility] [address] [address] 0891 Oct, [facility] [address] [facility] [id number] [address] 0142 Oct, [facility] [address] [address] 3870 Oct, [facility] [id number] [place] [address] 96620- 1178 Sep, [facility] [address] [address] 3634 Sep, [facility] [id number] [place] [address] [id number] Aug, Dental examination Z01.20 and Dental caries K02.9 [facility] [address] [address] 5722 Aug, [facility] [id number] [place] [address] 90332- 2877 Jul, [facility] [address] [address]- 7194 Jul, [facility] [address] [address]- 1468 Jul, Moderate episode of recurrent major depressive disorder F33.1 [facility] [address] [address]- 0472 18 Jun, 2017 Moderate episode of recurrent major depressive disorder F33.1 and Anxiety F41.9 [facility] [address] [address]- 3976 14 Jun, 2017 [facility] [address] [address]- 7426 11 Jun, 2017 Anxiety F41.9 [facility] [address] [address]- 2273 Jun, Moderate episode of recurrent major depressive disorder F33.1 [facility] [id number] [place] [address] 46760- 3948 Jun, [facility] [id number] [place] [address] 63241- 4495 May, Moderate episode of recurrent major depressive disorder F33.1 [facility] [id number] [place] [address] 44889 -5134 May, [facility] [address] [address]60- 6446 May, Encounter for well woman exam with routine gynecological exam Z01.419 and Anxiety F41.9 [place] [address] 6[address]- 4554 Apr, [place] [address] [id number] [place] [address] 01970- 3364 Mar, Affective disorder F39 ; Benzodiazepine dependence F13.20 and High risk sexual behavior Z72.51 [facility] [id number] [place] [address] 92278- 6696 Jan, Dyspepsia R10.13 ; Gastroesophageal reflux disease without esophagitis K21.9 and Affective disorder F39 [place] [address] [id number] [place] [address] 94756- 9295 Jan, Affective disorder F39 [place] [address] [id number] [place] [address] 82050- 7486 Dec, Moderate episode of recurrent major depressive disorder F33.1 [facility] [id number] [place] [address] 93411- 4298 14 Nov, 2016 Unspecified episodic mood disorder F39 and Essential hypertension I10 [place] [address] [place] [id number] [place] [address] 91563- 9429 02 Nov, 2016 Affective disorder F39 ; Anxiety F41.9 and Unspecified episodic mood disorder F39 [place] [address] [id number] [place] [address] 25163- 0434 Oct, [facility] [address] [address]- 7073 Oct, [facility] [address] [place] [id number] Sep, Dysuria R30.0 [facility] [id number] [place] [address] 65708- 9949 Sep, [facility] [id number] [place] [address] 72069- 6314 Aug, [facility] [id number] [place] [address] 51371- 0994 Aug, [facility] [id number] [place] [address] 80559- 2265 Jul, [facility] [id number] [place] [address] 18098 -8852 Jul, Acute non-recurrent maxillary sinusitis J01.00 and Dysuria R30.0 [facility] [id number] [place] [address] 05659- 2089 Jul, Affective disorder F39 ; Essential hypertension I10 ; Lumbago with sciatica, unspecified side M54.40 ; Other chronic pain G89.29 and Acute vaginitis N76.0 [facility] [id number] [place] [address] 96907- 1277 Jun, [facility] [id number] [place] [address] 00214- 7231 Jun, [facility] [id number] [place] [address] 38284- 4618 Jun, [facility] [id number] [place] [address] 70721 -5836 May, Anxiety F41.9 [facility] [id number] [place] [address] 26691- 1891 May, [facility] [id number] [place] [address] 10240- 6867 May, [facility] [id number] [place] [address] 94696- 3805 Apr, [facility] [id number] [place] [address] 35653- 8679 Apr, Affective disorder F39 [facility] [id number] [place] [address] 80613- 7581 Apr, [facility] [id number] [place] [address] 84619- 2462 Apr, Unspecified episodic mood disorder F39 [facility] [id number] [place] [address] 64615- 2101 Jan, Hypertension I10 [facility] [id number] [place] [address] 47084- 8433 Jan, Benzodiazepine dependence F13.20 and Arthritis M19.90 [facility] [id number] [place] [address] 89237- 9096 Nov, [facility] [id number] [place] [address] 21433- 4770 Jul, Migraine G43.909 ; Hypertension I10 and Arthritis M19.90 [facility] [id number] [place] [address] 80359- 9238 Jun, [facility] [id number] [place] [address] 45679- 7394 Jun, [facility] [id number] [place] [address] 21673- 4374 Jun, [facility] [id number] [place] [address] 42113- 5670 May, [facility] [id number] [place] [address] 76456- 0711 14 Jan, 2015 [facility] [id number] [place] [address] 47786- 4053 Jan, [facility] [place] [facility] [address] [id number] [place] [address]- 3392 Nov, [facility] [place] [facility] [address] [id number] [place] [address]- 3060 Nov, [facility] [place] [facility] [address] [id number] [place] [address]- 6861 Oct, [facility] [place] [facility] [address] [id number] [place] [address]- 5661 Oct, [facility] [place] [facility] [address] [id number] [place] [address]- 1984 Oct, [facility] [place] [facility] [address] [id number] [place] [address]- 3329 Oct, [facility] [place] [facility] [address] [id number] [place] [address]- 4801 Aug, [facility] [place] [facility] [address] [id number] [place] [address]- 3026 Aug, [facility] [place] [facility] [address] [id number] [place] [address]- 4694 Aug, [facility] [place] [facility] [address] [id number] [place] [address]- 9883 Aug, [facility] [place] [facility] [address] [id number] [place] [address]- 9410 Aug, [facility] [place] [facility] [address] [id number] [address]- 6528 Aug, [facility] [place] [facility] [address] [id number] [place] [address]- 8228 Aug, [facility] [place] [facility] [address] [id number] [place] [address]- 6817 May, [facility] [place] [facility] [address] [id number] [place] [address]- 7567 May, [facility] [place] [facility] [address] [id number] [place] [address]- 1044 May, [facility] [place] [facility] [address] [id number] [place] [address]- 5135 May, [facility] [place] [facility] [address] [id number] [place] [address]- 2541 May, [facility] [place] [facility] [address] [id number] [place] [address]- 6387 Apr, [facility] [place] [facility] [address] [id number] [place] [address]- 0275 Apr, [facility] [place] [facility] [address] [id number] [place] [address]- 8539 Apr, [facility] [place] [facility] [address] [id number] [place] [address]- 3437 Apr, [facility] [place] [facility] [address] [id number] [place] [address]- 3440 Apr, [facility] [place] [facility] [address] [id number] [place] [address]- 1043 Apr, [facility] [place] [facility] [address] [id number] [place] [address]- 1749 Apr, [facility] [place] [facility] [address] [id number] [place] [address]- 1827 Apr, [facility] [place] [facility] [address] [id number] [place] [address]- 8714 Mar, [facility] [place] [facility] [address] [id number] [place] [address]- 7009 Mar, [facility] [place] [facility] [address] [id number] [place] [address]- 1357 Mar, [facility] [place] [facility] [address] [id number] [place] [address]- 5797 Mar, [facility] [place] [facility] [address] [id number] [place] [address]- 2539 Mar, [facility] [place] [facility] [address] [id number] [place] [address]- 7005 Mar, [facility] [place] [facility] [address] [id number] [place] [address]- 0587 Mar, [facility] [place] [facility] [address] [id number] [place] [address]- 1213 February, [facility] [place] [facility] [address] [id number] [place] [address]- 8449 February, [facility] [place] [facility] [address] [id number] [place] [address]- 0334 Jan, [facility] [place] [facility] [address] [id number] [place] [address]- 4007 Jan, [facility] [place] [facility] [address] [id number] [place] [address]- 5913 Jan, [facility] [place] [facility] [address] [id number] [place] [address]- 5394 Jan, [facility] [place] [facility] [address] [id number] [place] [address]- 9193 Jan, [facility] [place] [facility] [address] [id number] [place] [address]- 5026 Jan, [facility] [place] [facility] [address] [id number] [place] [address]- 5793 Dec, [facility] [place] [facility] [address] [id number] [place] [address]- 1436 Dec, [facility] [place] [facility] [address] [id number] [place] [address]- 7306 Dec, [facility] [place] [facility] [address] [id number] [place] [address]- 5731 Nov, [facility] [place] [facility] [address] [id number] [place] [address]- 2519 Nov, [facility] [place] [facility] [address] [id number] [place] [address]- 0508 Nov, [facility] [place] [facility] [address] [id number] [place] [address]- 0889 Nov, [facility] [place] [facility] [address] [id number] [place] [address]- 7044 Oct, [facility] [place] [facility] [address] [id number] [place] [address]- 3568 Oct, [facility] [place] [facility] [address] [id number] [place] [address]- 1969 Oct, [facility] [place] [facility] [address] [id number] [place] [address]- 7940 Oct, [facility] [place] [facility] [address] [id number] [place] [address]- 3195 Oct, [facility] [place] [facility] [address] [id number] [place] [address]- 5851 Oct, [facility] [place] [facility] [address] [id number] [place] [address]- 7883 Sep, [facility] [place] [facility] [address] [id number] [address]- 9039 Sep, [facility] [place] [facility] [address] [id number] [place] [address]- 5815 Aug, [facility] [place] [facility] [address] [id number] [place] [address]- 2575 Aug, [facility] [place] [facility] [address] [id number] [place] [address]- 6068 Aug, [facility] [place] [facility] [address] [id number] [place] [address]- 3549 Aug, [facility] [place] [facility] [address] [id number] [place] [address]- 4433 Jul, [facility] [place] [facility] [address] [id number] [place] [address]- 1554 Jul, [facility] [place] [facility] [address] [id number] [place] [address]- 5176 Jul, [facility] [address] [id number] [place] [address]- 7240 Jul, [facility] [place] [facility] [address] [id number] [place] [address]- 2546 Jul, [facility] [address] [id number] [place] [address]- 3271 Apr, [facility] [place] [facility] [address] [id number] [place] [address]- 0921 Apr, [facility] [address] [id number] [place] [address]- 9901 Mar, [facility] [place] [facility] [address] [id number] [place] [address]- 0523 Mar, [facility] [address] [id number] [place] [address]- 4476 February, [facility] [address] [id number] [place] [address]- 0322 Dec, [facility] [address] [id number] [place] [address]- 5243 Dec, [facility] [address] [id number] [place] [address]- 9092 Dec, [facility] [place] [facility] [address] [id number] [place] [address]- 3135 Oct, [facility] [address] [id number] [place] [address]- 2649 Oct, [facility] [place] [facility] [address] [id number] [place] [address]- 2546 Sep, [facility] [place] [facility] [address] [id number] [place] [address]- 2546 Aug, [facility] [address] [id number] [place] [address]- 8332 Aug, [facility] [place] [facility] [address] [id number] [place] [address]- 7802 Aug, [facility] [place] [facility] [address] [id number] [place] [address]- 2570 Aug, [facility] [place] [facility] [address] [id number] [place] 0435 Aug, [facility] [place] [facility] [address] [id number] [place] [address]- 4002 Aug, [facility] [place] [facility] [address] [id number] [place] 1109 Aug, [facility] [place] [facility] [address] [id number] [place] [address]- 1317 Jul, [facility] [place] [facility] [address] [id number] [place] [address]- 1252 Jul, [facility] [place] [facility] [address] [id number] [place] [address]- 1399 Jul, [facility] [place] [facility] [address] [id number] [place] [address]- 8400 Jun, [facility] [place] [facility] [address] [id number] [place] [address]- 0661 Apr, [facility] [place] [facility] [address] [id number] [place] [address]- 7498 Apr, [facility] [place] [facility] [address] [id number] [place] [address]- 2605 Apr, [facility] [place] [facility] [address] [id number] [place] [address]- 1970 Mar, [facility] [place] [facility] [address] [id number] [address]- 5449 Mar, [facility] [place] [facility] [address] [id number] [place] [address]- 9618 Jan, [facility] [place] [facility] [address] [id number] [place] [address]- 4098 Dec, [facility] [place] [facility] [address] [id number] [place] [address]- 3392 15 May, 2011 [facility] [place] [facility] [address] [id number] [place] [address]- 6113 Sep, [facility] [place] [facility] [address] [id number] [place] [address]- 8436 16 Sep, 2010 [facility] [place] [facility] [address] [id number] [place] [address]- 0525 Aug, [facility] [place] [facility] [address] [id number] [place] [address]- 5631 Jul, [facility] [place] [facility] [address] [id number] [place] [address]- 5622 Jul, [facility] [place] [facility] [address] [id number] [place] [address]- 4902 15 Apr, 2010 [facility] [place] [facility] [address] [id number] [place] [address]- 6436 Jan, [facility] [place] [facility] [address] [id number] [place] [address]- 3343 Aug, [facility] [place] [facility] [address] [facility] [id number] [place] [address]- 3892 Aug, [facility] [place] [facility] [address] [id number] [place] [address]- 4856 07 Aug, 2009 [facility] [place] [facility] [address] [id number] [place] [address]- 2542 06 Aug, 2009 [facility] [place] [facility] [address] [id number] [place] [address]- 4781 29 Jul, 2009 [facility] [place] [facility] [address] [id number] [place] [address]- 5535 10 May, 2009 [facility] [place] [facility] [address] [id number] [place] [address]- 0339 15 Apr, 2009 [facility] [place] [facility] [address] [facility] [id number] [place] [address]- 9598 February, [facility] [address] [facility] [id number] [place] [address]- 8338 Dec, IMMUNIZATIONS No Known Immunizations SOCIAL HISTORY Never Assessed REASON FOR VISIT PLAN OF CARE VITAL SIGNS MEDICATIONS Medication Instructions Dosage Frequency Start Date End Date Duration Status Wellbutrin SR 150 MG Orally Once a day 1 tablet 24h Active RESULTS No Results PROCEDURES No Known procedures INSTRUCTIONS MEDICATIONS ADMINISTERED No Known Medications MEDICAL (GENERAL) HISTORY Type Description Date Medical History migraine headaches Medical History Unspecified backache Surgical History Hysterectomy 2003 Surgical History Bladder surgeries x 3 Hospitalization History Pneumonia 2013 Hospitalization History kidney stones 2014
--- OUTSIDE RECORDS SUMMARY | 2018-03-16 07:36 | XMS REPORT ---
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 Name Role Phone JULIETA SHARMA CP Unavailable Allergies No Known Allergies Problems Problem Type Condition Code Onset Dates Condition Status Assessment Unspecified episodic mood disorder F39 Active Problem Benzodiazepine dependence F13.20 Active Problem Migraine G43.909 Active Problem Affective disorder F39 Active Problem Other psoriasis 696.1 Active Problem Depressive disorder, not elsewhere classified 311 Active Problem Hypertension I10 Active Problem Arthritis M19.90 Active Medications No Known Medications Procedures Procedure Coding System Code Date Psychotherapy, patient &/family, 30 minutes, established patient CPT-4 98015 April 26, 2016 Results No Known Results Summary Purpose [employer] Submission
--- OUTSIDE RECORDS SUMMARY | 2018-03-16 07:36 | XMS REPORT ---
Author Author DEONDRE SHAFFER [facility] [employer] Address Unknown Phone Unavailable Care Team Providers Care Paediatric Physiotherapist Name Role Phone DEONDRE SHAFFER CP Unavailable [...]
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
[2018-03-16] MEDS ORDERED: ONDANSETRON 4 MG/2 ML (SDV) Z0FRAN IVP ONE (07:45)
[2018-03-16] MEDS ORDERED: LACTATED RINGERS 1,500 ML IV ONE (07:45)
[2018-03-16 07:52] LABS: BASOPHILS # (AUTO) 0.1 10^3/uL (0.0-0.1); BASOPHILS % (AUTO) 1 % (0-10); EOSINOPHILS # (AUTO) 0.3 10^3/uL (0.0-0.3); EOSINOPHILS % (AUTO) 4 % (0-10); HEMATOCRIT 42 % (35-52); LYMPHOCYTES # (AUTO) 2.6 X 10^3 (1.0-4.0); LYMPHOCYTES % (AUTO) 32 % (12-44); MEAN CORPUSCULAR HEMOGLOBIN 30 PG (25-34); MEAN CORPUSCULAR HGB CONC 34 G/DL (32-36); MEAN CORPUSCULAR VOLUME 88 FL (80-99); MEAN PLATELET VOLUME 10.2 FL (7.4-10.4); MONOCYTES % (AUTO) 13 % (0-12); NEUTROPHILS # (AUTO) 4.1 X 10^3 (1.8-7.8); NEUTROPHILS % (AUTO) 51 % (42-75); PLATELET COUNT 403 10^3/uL (130-400); RED BLOOD COUNT 4.73 10^6/uL (4.35-5.85); RED CELL DISTRIBUTION WIDTH 13.9 % (10.0-14.5); WHITE BLOOD COUNT 8.2 10^3/uL (4.3-11.0)
[2018-03-16 08:12] LABS: ALANINE AMINOTRANSFERASE 17 U/L (0-55); ALKALINE PHOSPHATASE 96 U/L (40-136); BILIRUBIN,TOTAL 0.5 MG/DL (0.1-1.0); BUN/CREATININE RATIO 4; CALCIUM 10.3 MG/DL (8.5-10.1); CARBON DIOXIDE 19 MMOL/L (21-32); CHLORIDE 102 MMOL/L (98-107); CREATININE SERUM 1.26 MG/DL (0.60-1.30); GFR ESTIMATED 46; GLUCOSE 121 MG/DL (70-105); POTASSIUM 3.7 MMOL/L (3.6-5.0); SALICYLATE < 5.0 MG/DL (5.0-20.0); SODIUM 137 MMOL/L (135-145); TOTAL PROTEIN 8.6 GM/DL (6.4-8.2)
[2018-03-16 08:13] LABS: ACETAMINOPHEN < 10 UG/ML (10-30)
[2018-03-16 09:15] LABS: BILIRUBIN,URINE NEGATIVE (NEGATIVE); CLARITY,URINE CLEAR; COLOR,URINE YELLOW; GLUCOSE, URINE (UA) NEGATIVE (NEGATIVE); KETONES,URINE NEGATIVE (NEGATIVE); LEUKOCYTE ESTERASE ,URINE 1+ (NEGATIVE); NITRITE,URINE NEGATIVE (NEGATIVE); PH,URINE 6 (5-9); PROTEIN,URINE NEGATIVE (NEGATIVE); UROBILINOGEN,URINE NORMAL (NORMAL)
[2018-03-16 09:30] LABS: BACTERIA,URINE LARGE /HPF; SQUAMOUS EPITHELIAL CELL,UR 0-2 /HPF; WBC,URINE 0-2 /HPF
[2018-03-16] MEDS ORDERED: BUPR150T14 PO (09:33)
[2018-03-16] MEDS ORDERED: BUSP15TA60 PO (09:33)
[2018-03-16] MEDS ORDERED: ATEN50TA PO (09:33)
[2018-03-16 09:36] LABS: AMPHETAMINE SCREEN, URINE NEGATIVE (NEGATIVE); BARBITURATE SCREEN URINE NEGATIVE (NEGATIVE); BENZODIAZEPINES SCREEN URINE NEGATIVE (NEGATIVE); CANNABINOID SCREEN, URINE NEGATIVE (NEGATIVE); COCAINE SCREEN URINE NEGATIVE (NEGATIVE); HCG,QUALITATIVE URINE NEGATIVE (NEGATIVE); METHADONE STAT NEGATIVE (NEGATIVE); METHAMPHETAMINE SCREEN URINE S NEGATIVE (NEGATIVE); OPIATE SCREEN URINE NEGATIVE (NEGATIVE); OXYCODONE STAT NEGATIVE (NEGATIVE); PROPOXYPHENE STAT NEGATIVE (NEGATIVE); TRICYCLIC ANTIDEPRESSANTS SCRE NEGATIVE (NEGATIVE)
[2018-03-16] MEDS ORDERED: cloNIDine 0.1 MG (CATAPRES) TAB PO ONE (10:00)
[2018-03-16] MEDS ORDERED: ACETAMINOPHEN 500 MG TAB (TYLENOL) PO ONE (10:00)
[2018-03-16 11:30] VITALS: BP 127/86
[2018-03-16] MEDS: IBUPROFEN TABLET 200 MG TAB PO PRN ×2 (14:10→21:58)
[2018-03-16] MEDS: ONDANSETRON 4 MG/2 ML (SDV) Z0FRAN IVP PRN ×2 (14:10→20:08)
[2018-03-16 16:26] VITALS: BP 135/84
[2018-03-16] MEDS ORDERED: TRAZ100T92 PO (17:25)
[2018-03-16 19:44] VITALS: BP 121/85
[2018-03-16] MEDS ORDERED: traZODone 100 MG (DESYREL) TAB PO SCH (21:00)
[2018-03-16] MEDS: cloNIDine 0.1 MG (CATAPRES) TAB PO SCH (21:55)
[2018-03-17 00:36] VITALS: BP 102/66
[2018-03-17] MEDS: ONDANSETRON 4 MG/2 ML (SDV) Z0FRAN IVP PRN ×3 (05:37→14:28)
[2018-03-17 05:43] VITALS: BP 135/88
[2018-03-17 08:30] VITALS: BP 137/96
[2018-03-17] MEDS ORDERED: ATENOLOL 50 MG (TENORMIN) TAB PO SCH (09:00)
[2018-03-17] MEDS: cloNIDine 0.1 MG (CATAPRES) TAB PO SCH (09:21)
[2018-03-17] MEDS ORDERED: GABA800T2 PO (09:39)
--- NOTE | 2018-03-17 10:00 | Short Stay Summary-Hospitalist ---
History of Present Illness HPI/Chief Complaint CC: OD HPI: This is a 42-year-old white female [facility] and Dr. Bess who presents to the ER after purposeful overdose of Neurontin which she retracted that statement later. Poison control recommended observation for 24 hours for any type of seizure. Currently she is doing well and once to go home she does have some nausea which is relieved by Zofran and I did obtain a psychiatric appointment with Dr. Rushing today at 1 p.m. a [facility]. She is agreeable to this plan. Source: patient Exam Limitations: no limitations Date Seen 03/17/18 Time Seen by Provider: 09:00 Attending Physician Jojo Truong DO PCP Jeancarlos Bess MD Referring Physician Date of Admission March 16, 2018 at 10:51 Home Medications & Allergies Home Medications Reviewed patient Home Medication Reconciliation performed by pharmacy medication reconciliations industrial service technician and/or nursing. Patients Allergies have been reviewed. Allergies Allergies Coded Allergies levofloxacin (Unverified Allergy, Mild, HIVES, 04/30/09) morphine (Verified Allergy, Unknown, MAYBE HIVES BUT PT NOT SURE, 10/30/08) Past Uxbffng-Pphldn-Hrgcra Hx Past Med/Social Hx: Reviewed Nursing Past Med/Soc Hx, Reviewed and Corrections made Patient Social History Marrital Status: single Employed/Student: unemployed Alcohol Use: Denies Use Recreational Drug Use: Yes (last used one week ago) Drug of Choice: opiates/benzos Smoking Status: Current Everyday Smoker Type Used: Cigarettes Physical Abuse Screen: No Sexual Abuse: No Recent Foreign Travel: No Contact w/other who traveled: No Recent Hopitalizations: Yes Recent Infectious Disease Expo: No Immunizations Up To Date Tetanus Booster (TDap): More than 5yrs Pediatric: Yes Seasonal Allergies Seasonal Allergies: No Past Medical History Surgeries: Bladder Surgery, Breast, Hysterectomy, Oophorectomy, Renal Cardiac: Hypertension Neurological: Headaches /Migraines Reproductive: No Sexually Transmitted Disease: No HIV/AIDS: No Female Reproductive Disorders: Ovarian Cyst Hysterectomy Genitourinary: Kidney Stones, UTI-Chronic Gastrointestinal: Ulcer Musculoskeletal: Fibromyalgia Loss of Vision: Denies Hearing Impairment: Denies Psychosocial: Anxiety, Bipolar, Depression Skin/Integumentary: Psoriasis History of Blood Disorders: No Family History Cancer GRANDMOTHERS, Onset:Unknown (LUNG CA, LEUKEMIA) Congenital heart disease GRANDMOTHERS, Onset:60 years & older Family history: Diabetes mellitus GRANDMOTHERS Family history: Hypertension 03 FATHER, Onset:Unknown 03 MOTHER 09 BROTHER No Family History of: AIDS Abdominal aortic aneurysm Abdominal aortic aneurysm Treasure's disease Patel's disease Alcoholism Aphasia Cancer of colon Cataract Chest pain Congestive heart failure Cystic fibrosis Dementia Dysphagia Dysphasia Family history: Alzheimer's disease Family history: Arthritis Family history: Asthma Family history: Breast disease Family history: Cardiovascular disease Family history: Coronary thrombosis Family history: Gastrointestinal disease Family history: Glaucoma Family history: Osteoporosis Family history: Thyroid disorder Fibrocystic disease of breast Gastroenteritis Headache Hearing loss Heart disease Hereditary disease History of - anemia History of - disorder History of - respiratory disease History of drug abuse Human immunodeficiency virus (HIV) seropositivity Hypercholesterolemia Infertile Kidney disease Malignant neoplasm of lung Myocardial infarction Parkinson's disease Prostate cancer Psychotic disorder Seizure disorder Stroke Tuberculosis Visual impairment Heart Disease, Diabetes, GI Disease, Hypertension, Renal Disease Review of Systems Constitutional: see HPI, weakness EENTM: no symptoms reported Respiratory: no symptoms reported Cardiovascular: no symptoms reported Gastrointestinal: nausea Genitourinary: no symptoms reported Musculoskeletal: no symptoms reported Skin: no symptoms reported Psychiatric/Neurological: Anxiety, Depressed All Other Systems Reviewed Negative Unless Noted: Yes Physical Exam Physical Exam Vital Signs Vital Signs - First Documented 03/16/18 03/16/18 07:25 11:11 Temp 98.7 Pulse 122 Resp 18 B/P (MAP) 159/127 (138) Pulse Ox 98 O2 Delivery Room Air Capillary Refill : Less Than 3 Seconds General Appearance: No Apparent Distress, WD/WN Eyes: Bilateral Eye Normal Inspection, Bilateral Eye PERRL HEENT: PERRL/EOMI, Normal ENT Inspection, Pharynx Normal Neck: Full Range of Motion, Normal Inspection, Non Tender, Supple, Carotid Bruit Respiratory: Chest Non Tender, Lungs Clear, Normal Breath Sounds, No Accessory Muscle Use, No Respiratory Distress Cardiovascular: Regular Rate, Rhythm, No Edema, No Gallop, No JVD, No Murmur, Normal Peripheral Pulses Gastrointestinal: Normal Bowel Sounds, No Organomegaly, No Pulsatile Mass, Non Tender, Soft Back: Normal Inspection, No CVA Tenderness, No Vertebral Tenderness Extremity: Normal Capillary Refill, Normal Inspection, Normal Range of Motion, Non Tender, No Calf Tenderness, No Pedal Edema Neurologic/Psychiatric: Alert, Oriented x3, No Motor/Sensory Deficits, Normal Mood/Affect Skin: Normal Color, Warm/Dry Lymphatic: No Adenopathy Results Results/Procedures Labs Laboratory Tests 03/16/18 07:40 Patient resulted labs reviewed. Short Stay Diagnosis Discharge Diagnosis-Short Stay Admission Diagnosis Assessment: Overdose with Neurontin without seizure for the past 24 hours Hypertension Bipolar Anxiety Depression Smoker Final Discharge Diagnosis Assessment: Overdose with Neurontin without seizure for the past 24 hours Hypertension Bipolar Anxiety Depression Smoker Conclusion Plan Plan: Patient denies suicidal ideation Zofran to pharmacy Appointment with Mark Rushing counselor/psychologist today at 1 p.m. [facility] Clinical Quality Measures DVT/VTE Risk/Contraindication: Risk Factor Score Per Nursin RFS Level Per Nursing on Admit: 2=Moderate JOJO TRUONG DO March 17, 2018 10:00
[2018-03-17] MEDS ORDERED: ONDA8TAB9 SL (10:02)
[2018-03-17] MEDS ORDERED: QUEtiapine 100 MG (SEROquel) TAB IMMEDIATE RELEASE PO SCH ×2 (11:15→21:00)
[2018-03-17] MEDS ORDERED: GABAPENTIN 400 MG (NEURONTIN) CAP PO SCH (13:00)
[2018-03-17] MEDS ORDERED: NON-FORMULARY MEDICATION 1 EA EA (Gabapentin 800 MG) PO SCH (13:00)
[2018-03-17] MEDS ORDERED: busPIRone 15 MG (BUSPAR) TABLET PO SCH (13:00)
[2018-03-17] MEDS: IBUPROFEN TABLET 200 MG TAB PO PRN (14:28)
[2018-03-17] MEDS ORDERED: buPROPion SR 150 MG (WELLBUTRIN SR) TAB PO SCH (17:00)
[2018-03-17] MEDS ORDERED: cloNIDine 0.1 MG (CATAPRES) TAB PO SCH (21:00)
[2018-03-17] MEDS ORDERED: NON-FORMULARY MEDICATION 1 EA EA (Bupropion HCl (Bupropion HCl Sr) 150 MG) PO SCH (21:00)
[2018-03-17] MEDS ORDERED: QUETIAPINE FUMARATE 300 MG PO SCH (21:00)
[2018-03-18] MEDS ORDERED: ATENOLOL 50 MG (TENORMIN) TAB PO SCH (09:00)
== END 2018-03-17 10:02 | disposition home or self-care (01) ==
LOC: EDUNIT# 07:25 → ER 07:26 → UNDOADMOB 10:51 → ICU 10:51 → UNDODISOB 03-17 17:20
PROVIDERS: ADMIT Internal Medicine; ATTEND Internal Medicine
DX: T43.8X1A Poisoning by other psychotropic drugs, accidental (unintentional), initial encounter (principal); I10 Essential (primary) hypertension; F31.9 Bipolar disorder, unspecified; F41.9 Anxiety disorder, unspecified; F17.210 Nicotine dependence, cigarettes, uncomplicated
CPT/HCPCS: 36415; 80053; 80306; 80320; 80329; 81000; 83735; 84703; 85025; 87077; 87088; 87186; 93005; 93041; 96361; 96374; G0378

== ENCOUNTER 2018-04-16 07:39 | Emergency (ER) | payer SELFPAY ==
[~2018-04-16] VITALS: Ht 167.6 cm; Wt 83.9 kg
[~2018-04-16 07:39] MED LIST changes: +ATEN50TA PO; +BUPR150T14 PO; +BUSP15TA60 PO; +TRAZ-190 PO
[2018-04-16] MEDS ORDERED: ONDANSETRON 4 MG (ZOFRAN) ORAL DISSOLVE TAB SL STA (07:51)
[2018-04-16] MEDS ORDERED: QUEtiapine 200 MG (SEROquel) TAB IMMEDIATE RELEASE PO ONE (08:00)
[2018-04-16] MEDS ORDERED: GABAPENTIN 600 MG (NEURONTIN) TAB PO ONE (08:00)
[2018-04-16] MEDS ORDERED: cloNIDine 0.1 MG (CATAPRES) TAB PO ONE (08:00)
[2018-04-16] MEDS ORDERED: busPIRone 15 MG (BUSPAR) TABLET PO ONE (08:00)
[2018-04-16] MEDS ORDERED: ATENOLOL 50 MG (TENORMIN) TAB PO ONE (08:00)
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
[2018-04-16 10:48] VITALS: BP 133/102
== END 2018-04-16 10:48 | disposition left against medical advice (07) ==
LOC: EDUNIT# 07:39 → ER 07:41
DX: R11.0 Nausea (principal); G43.909 Migraine, unspecified, not intractable, without status migrainosus; F11.90 Opioid use, unspecified, uncomplicated; F17.210 Nicotine dependence, cigarettes, uncomplicated; F41.9 Anxiety disorder, unspecified; F31.9 Bipolar disorder, unspecified; Z87.2 Personal history of diseases of the skin and subcutaneous tissue; Z87.442 Personal history of urinary calculi; Z87.42 Personal history of other diseases of the female genital tract; Z87.01 Personal history of pneumonia (recurrent); Z90.710 Acquired absence of both cervix and uterus; Z98.890 Other specified postprocedural states; Z88.1 Allergy status to other antibiotic agents; Z88.5 Allergy status to narcotic agent
CPT/HCPCS: 99283

== ENCOUNTER 2019-06-10 04:51 | Emergency (ER) | payer SELFPAY ==
[~2019-06-10] VITALS: Ht 170.2 cm; Wt 86.2 kg
[~2019-06-10 04:51] MED LIST changes: -GABA600T2; +GABA800T10 PO; +GBPN600T
[2019-06-10 05:09] LABS: CLARITY,URINE SLIGHTLY CLOUDY; COLOR,URINE AMBER; GLUCOSE, URINE (UA) NEGATIVE (NEGATIVE); KETONES,URINE 2+ (NEGATIVE); LEUKOCYTE ESTERASE ,URINE 2+ (NEGATIVE); NITRITE,URINE NEGATIVE (NEGATIVE); PH,URINE 6 (5-9); PROTEIN,URINE 3+ (NEGATIVE); UROBILINOGEN,URINE 4 MG/DL (NORMAL)
[2019-06-10 05:21] LABS: BILIRUBIN,URINE 2+ (NEGATIVE); RBC,URINE 0-2 /HPF; WBC,URINE 0-2 /HPF
[2019-06-10 05:22] LABS: AMORPHOUS SEDIMENT,UR FEW AMOR URATES /LPF; AMPHETAMINE SCREEN, URINE NEGATIVE (NEGATIVE); BACTERIA,URINE TRACE /HPF; BARBITURATE SCREEN URINE NEGATIVE (NEGATIVE); BENZODIAZEPINES SCREEN URINE NEGATIVE (NEGATIVE); CANNABINOID SCREEN, URINE POSITIVE (NEGATIVE); COCAINE SCREEN URINE NEGATIVE (NEGATIVE); HCG,QUALITATIVE URINE NEGATIVE (NEGATIVE); METHADONE STAT NEGATIVE (NEGATIVE); METHAMPHETAMINE SCREEN URINE S NEGATIVE (NEGATIVE); OPIATE SCREEN URINE NEGATIVE (NEGATIVE); OXYCODONE STAT NEGATIVE (NEGATIVE); PROPOXYPHENE STAT NEGATIVE (NEGATIVE); TRICYCLIC ANTIDEPRESSANTS SCRE POSITIVE (NEGATIVE)
--- NOTE | 2019-06-10 05:30 | NUR ---
Pt reports to provider medication withdrawl symptoms including nausea, shakiness, and loose stools. Pt reports she has been experiencing symtpoms for approx x3days.
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
[2019-06-10] MEDS ORDERED: QUEtiapine 100 MG (SEROquel) TAB IMMEDIATE RELEASE PO ONE (05:45)
[2019-06-10] MEDS ORDERED: ONDANSETRON 4 MG (ZOFRAN) ORAL DISSOLVE TAB PO ONE (05:45)
[2019-06-10] MEDS ORDERED: GABAPENTIN 400 MG (NEURONTIN) CAP PO ONE (05:45)
[2019-06-10 05:50] LABS: BASOPHILS % (AUTO) 0 % (0-10); EOSINOPHILS # (AUTO) 0.1 10^3/uL (0.0-0.3); EOSINOPHILS % (AUTO) 1 % (0-10); HEMATOCRIT 45 % (35-52); HEMOGLOBIN 15.6 G/DL (11.5-16.0); LYMPHOCYTES # (AUTO) 2.1 X 10^3 (1.0-4.0); LYMPHOCYTES % (AUTO) 19 % (12-44); MEAN CORPUSCULAR HEMOGLOBIN 31 PG (25-34); MEAN CORPUSCULAR HGB CONC 35 G/DL (32-36); MEAN CORPUSCULAR VOLUME 88 FL (80-99); MEAN PLATELET VOLUME 9.8 FL (7.4-10.4); MONOCYTES # (AUTO) 1.1 X 10^3 (0.0-1.0); MONOCYTES % (AUTO) 10 % (0-12); NEUTROPHILS # (AUTO) 7.6 X 10^3 (1.8-7.8); NEUTROPHILS % (AUTO) 69 % (42-75); PLATELET COUNT 418 10^3/uL (130-400); RED CELL DISTRIBUTION WIDTH 13.2 % (10.0-14.5)
[2019-06-10 06:16] LABS: ALANINE AMINOTRANSFERASE 25 U/L (0-55); ALBUMIN 5.3 GM/DL (3.2-4.5); ALKALINE PHOSPHATASE 102 U/L (40-136); BILIRUBIN,TOTAL 0.7 MG/DL (0.1-1.0); BUN/CREATININE RATIO 21; CALCIUM 10.8 MG/DL (8.5-10.1); CARBON DIOXIDE 18 MMOL/L (21-32); CHLORIDE 100 MMOL/L (98-107); GFR ESTIMATED > 60; GLUCOSE 121 MG/DL (70-105); POTASSIUM 3.5 MMOL/L (3.6-5.0); SALICYLATE < 5.0 MG/DL (5.0-20.0); SODIUM 136 MMOL/L (135-145); TOTAL PROTEIN 9.6 GM/DL (6.4-8.2)
[2019-06-10 06:17] LABS: ACETAMINOPHEN < 10 UG/ML (10-30)
--- NOTE | 2019-06-10 06:45 | NUR ---
Pt resting on ED cart with respirations even and non labored. Pt voices no c/o or concerns @ this time. Updated pt on status of transfer.
--- NOTE | 2019-06-10 07:24 | NUR ---
Report given to CHRIS Garcia to assume care of pt @ this time.
--- NOTE | 2019-06-10 09:05 | NUR ---
PT RESTING WITH EYES CLOSED AND NON LABORED BREATHING AT THIS TIME. APPEARS IN NO APPARENT DISTRESS.
--- NOTE | 2019-06-10 09:55 | NUR ---
PT UP TO RR AT THIS TIME. PT DOES NOT VERBALIZE ANY C/O OR NEEDS AT THIS TIME.
--- NOTE | 2019-06-10 10:10 | NUR ---
MEAL TRAY ORDERED FOR PT AT THIS TIME.
--- NOTE | 2019-06-10 10:40 | NUR ---
MEAL TRAY TO PT AT THIS TIME.
[2019-06-10] MEDS ORDERED: ALPRAZolam 0.25 MG (XANAX) TAB PO ONE (11:30)
--- NOTE | 2019-06-10 12:02 | NUR ---
BRUNO HERE FOR PT AT THIS TIME.
[2019-06-10 12:06] VITALS: BP 120/80
== END 2019-06-10 12:05 ==
LOC: EDUNIT# 04:51 → ER 04:52
DX: F32.9 Major depressive disorder, single episode, unspecified (principal); R45.851 Suicidal ideations; F12.10 Cannabis abuse, uncomplicated; I10 Essential (primary) hypertension; G43.909 Migraine, unspecified, not intractable, without status migrainosus; M79.7 Fibromyalgia; F31.9 Bipolar disorder, unspecified; F41.9 Anxiety disorder, unspecified; F17.210 Nicotine dependence, cigarettes, uncomplicated; Z87.01 Personal history of pneumonia (recurrent); Z91.14 Patient's other noncompliance with medication regimen; Z88.1 Allergy status to other antibiotic agents; Z88.6 Allergy status to analgesic agent; Z90.710 Acquired absence of both cervix and uterus; Z80.1 Family history of malignant neoplasm of trachea, bronchus and lung; Z80.6 Family history of leukemia; Z82.49 Family history of ischemic heart disease and other diseases of the circulatory system
CPT/HCPCS: 36415; 80053; 80306; 80320; 80329; 81000; 84703; 85025; 93005

== ENCOUNTER 2020-02-24 11:09 | Emergency (ER) | payer SELFPAY ==
[~2020-02-24] VITALS: Ht 167 cm; Wt 79.9 kg
[~2020-02-24 11:09] MED LIST changes: -TRAZ-190 PO; +TRAZ-227 PO
[2020-02-24 11:52] LABS: BILIRUBIN,URINE NEGATIVE (NEGATIVE); CLARITY,URINE CLEAR; COLOR,URINE YELLOW; GLUCOSE, URINE (UA) NEGATIVE (NEGATIVE); KETONES,URINE NEGATIVE (NEGATIVE); LEUKOCYTE ESTERASE ,URINE TRACE (NEGATIVE); NITRITE,URINE NEGATIVE (NEGATIVE); PROTEIN,URINE NEGATIVE (NEGATIVE)
--- NOTE | 2020-02-24 11:54 | NUR ---
LAB IN ROOM AT THIS TIME.
[2020-02-24] MEDS ORDERED: busPIRone 10 MG (BUSPAR) TAB PO ONE (12:00)
[2020-02-24] MEDS ORDERED: GABAPENTIN 600 MG (NEURONTIN) TAB PO ONE (12:00)
[2020-02-24] MEDS ORDERED: QUEtiapine 100 MG (SEROquel) TAB IMMEDIATE RELEASE PO ONE (12:00)
[2020-02-24] MEDS ORDERED: ONDANSETRON 4 MG/2 ML (SDV) Z0FRAN IVP ONE (12:00)
--- NOTE | 2020-02-24 12:00 | ED Psychosocial ---
General Chief Complaint: Psych/Social Disorder Stated Complaint: SUICIDAL IDEATION Nursing Triage Note: ARRIVED VIA AMB TO ROOM 08. STATES HER AXNIETY AND DEPRESSION IS GETTING TO HER AND IS THINKING ABOUT ENDING EVERYTHING BY TAKING HER PILLS. STATES SHE HAS NO PLAN TO HARM HER SELF WHILE IN THE HOSPITAL. PT WANTING TO BE PLACED IN A PSYCH FACILITY. History of Present Illness Date Seen by Provider: February 24, 2020 Time Seen by Provider: 11:30 Initial Comments 44-year-old female with known history of anxiety and depression presents today for worsening symptoms. She is essentially homeless and has been staying with friends and family intermittently. She reports no new stressors but feelings that she wants to harm herself because her life is so bad. She doesn't believe she would follow through, because of her kids and grandkids. She doesn't have a specific plan, but has considered taking pills. Timing/Duration: getting worse Severity: moderate Associated Symptoms: anxiety, suicidal ideation Allergies and Home Medications Allergies Coded Allergies: levofloxacin (Unverified Allergy, Mild, HIVES, 04/30/09) morphine (Verified Allergy, Unknown, MAYBE HIVES BUT PT NOT SURE, 10/30/08) Home Medications Atenolol 50 Mg Tablet, 50 MG PO DAILY, (Reported) Bupropion HCl 150 Mg Tablet.er, 150 MG PO BID, (Reported) Buspirone HCl 15 Mg Tablet, 15 MG PO TID, (Reported) Clonidine HCl 0.1 Mg Tablet, 0.1 MG PO BID, (Reported) Gabapentin 800 Mg Tablet, 800 MG PO QID, (Reported) Ondansetron 8 Mg Tab.rapdis, 8 MG SL Q4H PRN for NAUSEA/VOMITING-1ST LINE Prescribed by: KASEY ARROYO on 03/17/18 1002 Quetiapine Fumarate 300 Mg Tab.er.24h, 300 MG PO BID, (Reported) Trazodone HCl 100 Mg Tablet, 100 MG PO HS, (Reported) Patient Home Medication List Home Medication List Reviewed: Yes Review of Systems Constitutional: no symptoms reported, see HPI EENTM: see HPI, no symptoms reported Respiratory: no symptoms reported, see HPI Cardiovascular: no symptoms reported, see HPI Gastrointestinal: see HPI; No constipation, No diarrhea; nausea; No vomiting Psychiatric/Neurological: See HPI, Anxiety, Depressed, Emotional Problems All Other Systems Reviewed Negative Unless Noted: Yes Past [id number] Hx Past Med/Social Hx: Reviewed Nursing Past Med/Soc Hx Patient Social History Drug of Choice: THC Type Used: Cigarettes 2nd Hand Smoke Exposure: Yes Recent Foreign Travel: No Contact w/Someone Who Travel: No Recent Infectious Disease Expo: No Recent Hopitalizations: Yes Immunizations Up To Date Tetanus Booster (TDap): More than 5yrs PED Vaccines UTD: Yes Seasonal Allergies Seasonal Allergies: No Past Medical History Surgeries: Yes (EGD. 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 Sexually Transmitted Disease: No HIV/AIDS: No Genitourinary: Yes Kidney Stones, UTI-Chronic Gastrointestinal: Yes Ulcer Musculoskeletal: No (CHRONIC SHOULDER PAIN) Fibromyalgia Endocrine: No HEENT: No Loss of Vision: Denies Hearing Impairment: Denies Cancer: No Psychosocial: Yes (POLYSUBSTANCE ABUSE) Anxiety, Bipolar, Depression Integumentary: Yes (arms and elbows) Psoriasis Blood Disorders: No Family Medical History Cancer GRANDMOTHERS, Onset:Unknown (LUNG CA, LEUKEMIA) Congenital heart disease GRANDMOTHERS, Onset:60 years & older Family history: Diabetes mellitus GRANDMOTHERS Family history: Hypertension 03 FATHER, Onset:Unknown 03 MOTHER 09 BROTHER No Family History of: AIDS Abdominal aortic aneurysm Abdominal aortic aneurysm Antrim's disease Patel's disease Alcoholism Aphasia Cancer of colon Cataract Chest pain Congestive heart failure Cystic fibrosis Dementia Dysphagia Dysphasia Family history: Alzheimer's disease Family history: Arthritis Family history: Asthma Family history: Breast disease Family history: Cardiovascular disease Family history: Coronary thrombosis Family history: Gastrointestinal disease Family history: Glaucoma Family history: Osteoporosis Family history: Thyroid disorder Fibrocystic disease of breast Gastroenteritis Headache Hearing loss Heart disease Hereditary disease History of - anemia History of - disorder History of - respiratory disease History of drug abuse Human immunodeficiency virus (HIV) seropositivity Hypercholesterolemia Infertile Kidney disease Malignant neoplasm of lung Myocardial infarction Parkinson's disease Prostate cancer Psychotic disorder Seizure disorder Stroke Tuberculosis Visual impairment Heart Disease, Diabetes, GI Disease, Hypertension, Renal Disease Physical Exam Vital Signs - First Documented 02/24/20 11:30 Temp 37.0 Pulse 102 Resp 16 B/P (MAP) 178/114 (135) Pulse Ox 98 O2 Delivery Room Air Capillary Refill : Less Than 3 Seconds Height, Weight, BMI Height: 5'7.00" Weight: 190lbs. 0oz. 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, no motor/sensory deficits, alert, normal mood/affect, oriented x 3 Appearance/Memory: appropriate appearance, appropriate insight, neat Behavior/Eye Contact: cooperative, good eye contact, normal speech Thoughts/Hallucinations: normal thought pattern, no apparent hallucination Skin: normal color, warm/dry Progress/Results/Core Measures Results/Orders Lab Results Laboratory Tests Test 02/24/20 11:42 02/24/20 12:04 Range/Units Urine Color YELLOW Urine Clarity CLEAR Urine pH 7.0 5-9 Urine Specific [place] <=1.005 1.016-1.022 Urine Protein NEGATIVE NEGATIVE Urine Glucose (UA) NEGATIVE NEGATIVE Urine Ketones NEGATIVE NEGATIVE Urine Nitrite NEGATIVE NEGATIVE Urine Bilirubin NEGATIVE NEGATIVE Urine Urobilinogen 0.2 < = 1.0 MG/DL Urine Leukocyte Esterase TRACE H NEGATIVE Urine RBC (Auto) NEGATIVE NEGATIVE Urine RBC NONE /HPF Urine WBC RARE /HPF Urine Squamous Epithelial Cells 5-10 /HPF Urine Crystals PRESENT H /LPF Urine Bacteria TRACE /HPF Urine Casts NONE /LPF Urine Mucus NEGATIVE /LPF Urine Culture Indicated NO Urine Opiates Screen NEGATIVE NEGATIVE Urine Oxycodone Screen NEGATIVE NEGATIVE Urine Methadone Screen NEGATIVE NEGATIVE Urine Propoxyphene Screen NEGATIVE NEGATIVE Urine Barbiturates Screen NEGATIVE NEGATIVE Ur Tricyclic Antidepressants Screen POSITIVE H NEGATIVE Urine Phencyclidine Screen NEGATIVE NEGATIVE Urine Amphetamines Screen NEGATIVE NEGATIVE Urine Methamphetamines Screen NEGATIVE NEGATIVE Urine Benzodiazepines Screen NEGATIVE NEGATIVE Urine Cocaine Screen NEGATIVE NEGATIVE Urine Cannabinoids Screen NEGATIVE NEGATIVE White Blood Count 11.4 H 4.3-11.0 10^3/uL Red Blood Count 4.67 4.35-5.85 10^6/uL Hemoglobin 13.6 11.5-16.0 G/DL Hematocrit 41 35-52 % Mean Corpuscular Volume 88 80-99 FL Mean Corpuscular Hemoglobin 29 25-34 PG Mean Corpuscular Hemoglobin Concent 33 32-36 G/DL Red Cell Distribution Width 12.6 10.0-14.5 % Platelet Count 413 H 130-400 10^3/uL Mean Platelet Volume 9.6 7.4-10.4 FL Neutrophils (%) (Auto) 74 42-75 % Lymphocytes (%) (Auto) 18 12-44 % Monocytes (%) (Auto) 6 0-12 % Eosinophils (%) (Auto) 2 0-10 % Basophils (%) (Auto) 0 0-10 % Neutrophils # (Auto) 8.4 H 1.8-7.8 X 10^3 Lymphocytes # (Auto) 2.0 1.0-4.0 X 10^3 Monocytes # (Auto) 0.7 0.0-1.0 X 10^3 Eosinophils # (Auto) 0.2 0.0-0.3 10^3/uL Basophils # (Auto) 0.0 0.0-0.1 10^3/uL Sodium Level 136 135-145 MMOL/L Potassium Level 4.0 3.6-5.0 MMOL/L Chloride Level 100 98-107 MMOL/L Carbon Dioxide Level 19 L 21-32 MMOL/L Anion Gap 17 H 5-14 MMOL/L Blood Urea Nitrogen 10 7-18 MG/DL Creatinine 0.81 0.60-1.30 MG/DL Estimat Glomerular Filtration Rate > 60 BUN/Creatinine Ratio 12 Glucose Level 114 H 70-105 MG/DL Calcium Level 10.5 H 8.5-10.1 MG/DL Corrected Calcium 8.5-10.1 MG/DL Total Bilirubin 0.4 0.1-1.0 MG/DL Aspartate Amino Transf (AST/SGOT) 19 5-34 U/L Alanine Aminotransferase (ALT/SGPT) 18 0-55 U/L Alkaline Phosphatase 76 40-136 U/L Total Protein 8.4 H 6.4-8.2 GM/DL Albumin 4.8 H 3.2-4.5 GM/DL TSH [place] Testing 0.42 0.35-4.94 UIU/ML Salicylates Level < 5.0 L 5.0-20.0 MG/DL Acetaminophen Level < 10 L 10-30 UG/ML Serum Alcohol < 10 <10 MG/DL My Orders Orders - JESSEE VARNER Ua Culture If Indicated (02/24/20 11:41) Cbc With Automated Diff (02/24/20 11:41) Comprehensive Metabolic Panel (02/24/20 11:41) Alcohol (02/24/20 11:41) Drug Screen Stat (Urine) (02/24/20 11:41) Acetaminophen (02/24/20 11:41) Salicylate (02/24/20 11:41) Ekg Tracing (02/24/20 11:41) Thyroid Analyzer (02/24/20 11:41) Ed Iv/Invasive Line Start (02/24/20 11:41) Urine Bedside (02/24/20 11:41) Quetiapine Immediate Release (Seroquel I (02/24/20 12:00) Buspirone Tablet (Buspar Tablet) (02/24/20 12:00) Gabapentin Capsule/Tablet (Neurontin Cap (02/24/20 12:00) Ondansetron Oral Dissolve Tab (Zofran (02/24/20 12:02) Clonidine Tablet (Catapres Tablet) (02/24/20 12:45) Atenolol Tablet (Tenormin Tablet) (02/25/20 09:00) Medications Given in ED Current Medications Medications Dose Ordered Sig/Manuelito Route Start Time Stop Time Status Last Admin Dose Admin Buspirone HCl 10 mg ONCE ONCE PO 02/24/20 12:00 02/24/20 12:01 DC 02/24/20 12:33 10 MG Clonidine HCl 0.1 mg ONCE ONCE PO 02/24/20 12:45 02/24/20 12:46 DC 02/24/20 12:46 0.1 MG Gabapentin 600 mg ONCE ONCE PO 02/24/20 12:00 02/24/20 12:01 DC 02/24/20 12:34 600 MG Quetiapine Fumarate 100 mg ONCE ONCE PO 02/24/20 12:00 02/24/20 12:01 DC 02/24/20 12:33 100 MG Vital Signs/I&O 02/24/20 02/24/20 11:30 14:05 Temp 37.0 37.0 Pulse 102 82 Resp 16 18 B/P (MAP) 178/114 (135) 119/76 (135) Pulse Ox 98 98 O2 Delivery Room Air Room Air Blood Pressure Mean: 135 Progress Progress Note : Time: 11:30 Progress Note Patient seen and evaluated, will obtain labs and EKG. Zofran 4 mg by mouth for nausea. Will resume her home medications, Seroquel, BuSpar and gabapentin. 1200 patient denies any new complaints. She does report her nausea is improved. She is taking ice chips. 1215 blood pressure elevated 160s over 90s, will give her clonidine and atenolol that she normally takes in the morning. [address] Grady at [facility], agreed to accept patient. Patient agreeable to transfer to [facility] in [place] in [place]. 1330 patient has remained stable no requests. Dory Morgan notified, agreeable to transfer. 1405 Dory here for transfer. Patient has remained stable. Initial ECG Impression Date: February 24, 2020 Initial ECG Impression Time: 12:03 Initial ECG Rate: 88 Initial ECG Rhythm: Normal Sinus Initial ECG Intervals: Normal Initial ECG Intervals GA 159; QRSD 92; QT 351; QTc 425 [place] P 31; QRS 57; T 46 Initial ECG Impression: Normal Initial ECG Comparisson: Unchanged Departure Impression Primary Impression: Depression Qualified Codes: F32.9 - Major depressive disorder, single episode, unspecified Additional Impressions: Anxiety Suicidal ideations Disposition: 02 XFER SHT-TRM HOSP Condition: Stable Transfer Transfer Reason: Exceeds level of care Time Spoke to Accepting Phy: 13:[address] Grady at [facility] Transfer Time: 14:05 Transfer Facility: [facility] Method of Transfer: Private Vehicle (with Dory Morgan, transport service) Departure-Patient Inst. Referrals: DEONDRE SHAFFER MD (PCP/Family) Primary Care Physician JESSEE VARNER February 24, 2020 12:00
[2020-02-24] MEDS ORDERED: ONDANSETRON 4 MG (ZOFRAN) ORAL DISSOLVE TAB SL STA (12:02)
--- NOTE | 2020-02-24 12:02 | NUR ---
PHARMACY NOTIFIED OF NEEDING MEDS.
[2020-02-24 12:07] LABS: BACTERIA,URINE TRACE /HPF
[2020-02-24 12:08] LABS: WBC,URINE RARE /HPF
[2020-02-24 12:10] LABS: BASOPHILS % (AUTO) 0 % (0-10); EOSINOPHILS # (AUTO) 0.2 10^3/uL (0.0-0.3); EOSINOPHILS % (AUTO) 2 % (0-10); HEMATOCRIT 41 % (35-52); HEMOGLOBIN 13.6 G/DL (11.5-16.0); LYMPHOCYTES % (AUTO) 18 % (12-44); MEAN CORPUSCULAR HEMOGLOBIN 29 PG (25-34); MEAN CORPUSCULAR HGB CONC 33 G/DL (32-36); MEAN CORPUSCULAR VOLUME 88 FL (80-99); MEAN PLATELET VOLUME 9.6 FL (7.4-10.4); MONOCYTES # (AUTO) 0.7 X 10^3 (0.0-1.0); MONOCYTES % (AUTO) 6 % (0-12); NEUTROPHILS # (AUTO) 8.4 X 10^3 (1.8-7.8); NEUTROPHILS % (AUTO) 74 % (42-75); PLATELET COUNT 413 10^3/uL (130-400); RED CELL DISTRIBUTION WIDTH 12.6 % (10.0-14.5); WHITE BLOOD COUNT 11.4 10^3/uL (4.3-11.0)
[2020-02-24 12:10] LABS: AMPHETAMINE SCREEN, URINE NEGATIVE (NEGATIVE); BARBITURATE SCREEN URINE NEGATIVE (NEGATIVE); BENZODIAZEPINES SCREEN URINE NEGATIVE (NEGATIVE); CANNABINOID SCREEN, URINE NEGATIVE (NEGATIVE); COCAINE SCREEN URINE NEGATIVE (NEGATIVE); METHADONE STAT NEGATIVE (NEGATIVE); METHAMPHETAMINE SCREEN URINE S NEGATIVE (NEGATIVE); OPIATE SCREEN URINE NEGATIVE (NEGATIVE); OXYCODONE STAT NEGATIVE (NEGATIVE); PROPOXYPHENE STAT NEGATIVE (NEGATIVE); TRICYCLIC ANTIDEPRESSANTS SCRE POSITIVE (NEGATIVE)
--- OUTSIDE RECORDS SUMMARY | 2020-02-24 12:18 | XMS REPORT ---
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 Buprenorphine 24 (H) [facility] ([facility] [Mass[facility]Vol] [facility] (80608) Buprenorphine Ql Positive (A) [facility] lt (U) [facility] (08424) Creatinine (U) 76.4 mg/dL (N) [facility] [Mass/Vol] [facility] (31406) Drug screen INCONSISTENT (A) [facility] comment (U) [facility] [Inter] [facility] (75138) Drug screen CONSISTENT (N) [facility] comment (U) [facility] [Inter] [facility] (04111) Ethanol Ql (U) Negative (N) [facility] (83889) Methylenedioxyme Negative (N) [facility] thamphetamine [facility] (U) [facility] (90857) Norbuprenorphine 68 (H) [facility] lt (U) [Mass/Vol] [facility] (45153) Opiates Ql (U) Negative (N) [facility] (45355) Oxidants Ql (U) Negative (N) [facility] (53764) Oxycodone Ql (U) Negative (N) [facility] (56852) pH (U) 7.8 [pH] (N) 4.6 - 8 [pH] [facility] (23936) Tetrahydrocannab 44 (H) [facility] inol (U) [facility] [Mass/Vol] [facility] (15600) Tetrahydrocannab Positive (A) [facility] inol Ql (U) [facility] (05174) not yet categorized on 2019-07-05 COMMENT no information (no code) [facility] (64544) Lot [id number] (no code) [facility] (67292) Lot # [id number] (no code) [facility] (09614) Result 11/19/2019~neg (no code) [facility] (89342) TCA 09/2020~+~neg~ne (no code) [facility] g~neg~neg~neg~+~ [facility] neg~neg~neg~neg~ [facility] neg~neg~n/a (51945) laboratory on 2019-07-05 1-Hydroxymidazol Negative (N) [facility] am (U) [facility] [Mass/Vol] [facility] (18102) 6-Monoacetylmorp Negative (N) [facility] sharon (6-DAVINA) Ql [facility] (U) [facility] (57804) 7-Aminoclonazepa Negative (N) [facility] m (U) [Mass/Vol] [facility] (59480) Alpha Negative (N) [facility] hydroxy[facility]razola [facility] m (U) [Mass/Vol] [facility] (62098) Alpha Negative (N) [facility] hydroxytriazolam [facility] (U) [Mass/Vol] [facility] (20524) Amphetamines Ql Negative (N) [facility] (U) [facility] (02196) Benzodiazepines Positive (A) [facility] Ql (U) [facility] (82138) Benzoylecgonine Negative (N) [facility] Ql (U) [facility] (36747) Buprenorphine Ql Negative (N) [facility]th (U) [facility] (82978) Creatinine (U) 23.4 mg/dL (N) [facility] [Mass/Vol] [facility] (04680) Drug screen INCONSISTENT (A) [facility] comment (U) [facility] [Interp] [facility] (59515) Drug screen CONSISTENT (N) [facility] comment (U) [facility] [Interp] [facility] (55742) Ethanol Ql (U) Negative (N) [facility] (16520) Hydroxyethylflur Negative (N) [facility] azepam (U) [facility] [Mass/Vol] [facility] (23507) Lorazepam (U) Negative (N) [facility] [Mass/Vol] [facility] (95277) Methylenedioxyme Negative (N) [facility] thamphetamine [facility] (U) [facility] (60833) Nordiazepam (U) Negative (N) [facility] [Mass/Vol] [facility] (54080) Opiates Ql (U) Negative (N) [facility] (69537) Oxazepam (U) 171 (H) [facility] [Mass/Vol] [facility] (71764) Oxidants Ql (U) Negative (N) [facility] (64586) Oxycodone Ql (U) Negative (N) [facility] (24052) pH (U) 7.0 [pH] (N) 4.6 - 8 [pH] [facility] (36492) Temazepam (U) Negative (N) [facility] [Mass/Vol] [facility] (15704) Tetrahydrocannab 18 (H) [facility] inol (U) [facility] [Mass/Vol] [facility] (08045) Tetrahydrocannab Positive (A) [facility] inol Ql (U) [facility] (50795) thyroid on 2018-06-19 Thyrotropin Qn 0.75 m[IU]/L (no code) 0.4 - 4 m[IU]/L [facility] in [facility] (80776) Thyrotropin Qn 0.75 m[IU]/L (no code) 0.4 - 4 m[IU]/L 06-19-2018 no information 19:12-0400 other on 2018-06-19 #BASOPHILS 0.04 (no code) no information #EOSINOPHILS 0.24 (no code) no information #IG 0.04 (H) no information #LYMPHOCYTES 2.83 (no code) no information #MONOCYTES 0.86 (no code) no information #NEUTROPHILS 3.71 (no code) no information #NRBC 0.00 (L) no information #NRBC 0.00 (L) 06-19-2018 Giles Carballo 16: [facility] (45622) %BASOPHILS 0.50 (no code) no information %EOSINOPHILS 3.10 (no code) no information %IG 0.50 (no code) no information %LYMPHOCYTES 36.7 (no code) no information %MONOCYTES 11.1 (H) no information %NEUTROPHILS 48.1 (no code) no information %NRBC 0.00 (no code) no information %NRBC 0.00 (no code) 06-19-2018 Giles Carballo 16: [facility] (19693) >60 (no code) no informatio n GFR Age Reported 42 (no code) no information Age Reported 42 (no code) 06-19-2018 Giles guardado 19: [facility] (33941) ALKALINE PHOS 81 (no code) no information AST enzyme 22 (no code) 06-19-2018 Giles Carballo act/vol 19: [facility] (94840) FASTING NO (no code) no information SPECIMEN? FASTING NO (no code) 06-19-2018 Giles Carballo SPECIMEN? 19: [facility] (03922) FINGER STICK NO (no code) no information FINGER STICK NO (no code) 06-19-2018 Giles guardado 16: [facility] (69157) FINGER STICK NO (no code) 06-19-2018 Giles guardado 19: [facility] (22480) Immature 0.04 (H) 06-19-2018 Giles Carballo granulocytes 16: [facility] #/vol (Bld) [facility] (80411) Immature 0.50 (no code) 06-19-2018 Giles Carballo granulocytes/100 16: [facility] (Bld) [facility] (10622) INDIRECT BILI 0.2 (no code) no information INDIRECT BILI 0.2 (no code) 06-19-2018 Giles Whitmore on 19: [facility] (65401) MANUAL DIFF NOT INDICATED (no code) no information MANUAL DIFF NOT INDICATED (no code) 06-19-2018 Giles Whitmore on 16: [facility] (15485) SGOT/AST 22 (no code) no information TOTAL CO2 27 (no code) no information no information Reference Lab (no code) no information no information Reference Lab (no code) no information no information no information (no code) 06-19-2018 Giles Carballo 16: [facility] (52249) no information no information (no code) 06-19-2018 Giles Carballo 19: [facility] (22623) metabolic panel on 2018-06-19 Albumin mass 3.6 g/dL (no code) 3.4 - 5.4 g/dL no inform ation conc Albumin mass 3.6 g/dL (no code) 3.4 - 5.4 g/dL 06-19-2018 Ishaan almanza Carballo conc 19: [facility] (80232) ALP enzyme 81 U/L (no code) 44 - 147 U/L 06-19-2018 Giles Carballo act/vol 19: [facility] (14733) ALT enzyme 24 U/L (no code) 4 - 40 U/L no information act/vol ALT enzyme 24 U/L (no code) 4 - 40 U/L 06-19-2018 Giles Longoria latisha act/vol 19: [facility] (76691) Bilirubin mass 0.2 mg/dL (no code) 0.1 - 1.2 mg/dL no inf ormation conc Bilirubin mass 0.2 mg/dL (no code) 0.1 - 1.2 mg/dL 06-19-2018 Spencer nguyen Carballo conc 19: [facility] (14450) Bilirubin.direct 0.0 mg/dL (no code) 0 - 0.3 mg/dL no inf ormation mass conc Bilirubin.direct 0.0 mg/dL (no code) 0 - 0.3 mg/dL 06-19-2018 Spencer Carballo mass conc 19: [facility] (82061) Calcium mass 9.2 mg/dL (no code) 8.5 - 10.2 mg/dL no info rmation conc Calcium mass 9.2 mg/dL (no code) 8.5 - 10.2 mg/dL 06-19-2018 Nav Carballo conc 19: [facility] (72103) Chloride molar 102 mmol/L (no code) 95 - 106 mmol/L no inf ormation conc Chloride molar 102 mmol/L (no code) 95 - 106 mmol/L 06-19-2018 Giles Carballo conc 19: [facility] (96840) CO2 molar conc 27 mmol/L (no code) 23 - 29 mmol/L 06-19-2018 Nav Carballo 19: [facility] (34474) Creatinine mass 0.8 mg/dL (no code) no information conc Creatinine mass 0.8 mg/dL (no code) 06-19-2018 Giles good conc 19: [facility] (85875) GFR/1.73 sq M >60 (no code) no information predicted among non-blacks MDRD vol rate/area (S/P/Bld) GFR/1.73 sq M >60 (no code) 06-19-2018 Giles Whitmore on predicted among 19: [facility] non-blacks MDRD Hospital (38527) vol rate/area (S/P/Bld) GFR/1.73 sq 83 (no code) no information M.predicted MDRD vol rate/area GFR/1.73 sq 83 (no code) 06-19-2018 Giles Sousapredicted MDRD : [facility] vol rate/area Hospital (95898) Glucose mass 108 mg/dL (no code) 60 - 125 mg/dL no inform ation conc Glucose mass 108 mg/dL (no code) 60 - 125 mg/dL 06-19-2018 Ishaan cami Haris conc 19: [facility] (09244) Potassium molar 4.3 mmol/L (no code) 3.7 - 5.2 mmol/L no i nformation conc Potassium molar 4.3 mmol/L (no code) 3.7 - 5.2 mmol/L 06-19-2018 Giles Carballo conc 19: [facility] (27637) Protein mass 7.0 g/dL (no code) 6.4 - 8.3 g/dL no inform ation conc Protein mass 7.0 g/dL (no code) 6.4 - 8.3 g/dL 06-19-2018 Ishaan Carballo conc 19:06040 [facility] (06525) Sodium molar 138 mmol/L (no code) 135 - 145 mmol/L no info rmation conc Sodium molar 138 mmol/L (no code) 135 - 145 mmol/L 06-19-2018 W wendy Carballo conc 19:040 [facility] (91346) Urea nitrogen 10 mg/dL (no code) 7 - 20 mg/dL no informa tion mass conc Urea nitrogen 10 mg/dL (no code) 7 - 20 mg/dL 06-19-2018 Flash Carballo mass conc 19:040 [facility] (53111) hematology on 2018-06-19 Basophils Auto 0.04 10*3/uL (no code) 0 - 0.3 10*3/uL 06-19-2018 Giles Carballo #/vol (Bld) 16: [facility] (09725) Basophils/100 0.50 % (no code) 0.5 - 1 % 06-19-2018 Giles Carballo WBC Auto (Bld) 16: [facility] (40501) Eosinophils Auto 0.24 10*3/uL (no code) 0.05 - 0.5 06-19-2018 Spencer nguyen Carballo #/vol (Bld) 10*3/uL 16: [facility] (94943) Eosinophils/100 3.10 % (no code) 1 - 4 % 06-19-2018 Mik Carballo WBC Auto (Bld) 16: [facility] (67053) Erythrocyte 13.9 % (no code) 11.6 - 14.6 % no informat ion distribution width Auto Ratio (RBC) Erythrocyte 13.9 % (no code) 11.6 - 14.6 % 06-19-2018 Mik Carballo distribution 16:33040 [facility] width Auto Ratio [facility] ([id number]) (RBC) Hematocrit Auto 34.4 % (L) 36.1 - 50.3 % no info rmation Volume Fraction (Bld) Hematocrit Auto 34.4 % (L) 36.1 - 50.3 % 06-19-2018 Nav robert Haris Volume Fraction 16: [facility] ([facility]) [facility] (18501) Hemoglobin mass 11.0 g/dL (L) 12.1 - 17.2 g/dL no i nformation conc (Bld) Hemoglobin mass 11.0 g/dL (L) 12.1 - 17.2 g/dL 06-19-2018 Giles Carballo conc (Bld) 16: [facility] (19970) Lymphocytes Auto 2.83 10*3/uL (no code) 0.9 - 2.9 06-19-2018 Nav jones Haris #/vol (Bld) 10*3/uL 16: [facility] () Lymphocytes/100 36.7 % (no code) 20 - 40 % 06-19-2018 Mik Carballo WBC Auto (Bld) 16: [facility] (15132) MCH Auto Entitic 29.1 pg (no code) 27 - 31 pg no inform ation mass (RBC) MCH Auto Entitic 29.1 pg (no code) 27 - 31 pg 06-19-2018 Will cami Haris mass (RBC) 16: [facility] (24367) MCHC Auto mass 32.0 g/dL (no code) 32 - 36 g/dL no inform ation conc (RBC) MCHC Auto mass 32.0 g/dL (no code) 32 - 36 g/dL 06-19-2018 Will cami Carballo conc (RBC) 16: [facility] (96532) MCV Auto Entitic 91.0 fL (no code) 80 - 100 fL no infor mation volume (RBC) MCV Auto Entitic 91.0 fL (no code) 80 - 100 fL 06-19-2018 Dejan Carballo volume (RBC) 16: [facility] (72611) Monocytes Auto 0.86 10*3/uL (no code) 0.3 - 0.9 06-19-2018 Will cami Carballo #/vol (Bld) 10*3/uL 16: [facility] (65251) Monocytes/100 11.1 % (H) 2 - 8 % 06-19-2018 Giles Carballo WBC Auto (Bld) 16:33 [facility] (58816) Neutrophils Auto 3.71 10*3/uL (no code) 1.7 - 7 10*3/uL 06-19-20 18 Giles Carballo #/vol (Bld) 16:33-0400 [facility] (71793) Neutrophils/100 48.1 % (no code) 40 - 60 % 06-19-2018 Mik bowman Carballo WBC Auto (Bld) 16:33 [facility] (05729) Platelets Auto 333 (no code) no information #/vol (Bld) Platelets Auto 333 (no code) 06-19-2018 Giles troy #/vol (Bld) 16:33040 [facility] (43256) RBC Auto #/vol 3.78 (L) no information (Bld) RBC Auto #/vol 3.78 (L) 06-19-2018 Giles Delvalle ton (Bld) 16:33 [facility] (34707) RBC morphology NOT INDICATED (no code) no information finding Nom (Bld) RBC morphology NOT INDICATED (no code) 06-19-2018 Giles dupont finding Nom 16:33 [facility] ([facility]) [facility] ([id number]) WBC Auto #/vol 7.7 (no code) no information (Bld) WBC Auto #/vol 7.7 (no code) 06-19-2018 Giles troy (Bld) 16:33040 [facility] (01300) urinalysis on 2018-05-08 Color Nom (U) Yellow (no code) 05-08-2018 no informati on Ketones Ql (U) Negative (no code) 05-08-2018 no informat ion 13: Leukocyte Trace (no code) 05-08-2018 no information esterase Test 13: strip Ql (U) pH Test strip 7.0 [pH] (no code) 4.6 - 8 [pH] 05-08-2018 no in formation (U) 13: RBC Test strip NONE SEEN (no code) 05-08-2018 no informat ion #/vol (U) 13: WBC #/vol (U) 0-2 (no code) 05-08-2018 no informati on :08-0400 other on 2018-05-08 Sample of Urine: 10 (no code) 05-08-2018 no inform ation 13:08-0400 #NRBC 0.00 (L) 05-08-2018 no information 12:49-0400 %NRBC 0.00 (no code) 05-08-2018 no information 12:49-0400 Age Reported 42 (no code) 05-08-2018 no informatio n 13:13-0400 AST enzyme 13 (L) 05-08-2018 no information act/vol 13:13-0400 FASTING UNKNOWN (no code) 05-08-2018 no information SPECIMEN? 13:13-0400 FINGER STICK NO (no code) 05-08-2018 no informatio n 12:49-0400 Immature 0.03 (no code) 05-08-2018 no information granulocytes 12:49-0400 #/vol (Bld) Immature 0.40 (no code) 05-08-2018 no information granulocytes/100 12:49-0400 WBC (Bld) INDIRECT BILI 0.1 (no code) 05-08-2018 no informati on 13:13-0400 MANUAL DIFF NOT INDICATED (no code) 05-08-2018 no informati on 12:49-0400 U BACTERIA NONE SEEN (no code) 05-08-2018 no information 13:08-0400 U BILIRUBIN Negative (no code) 05-08-2018 no information 13:08-0400 U BLOOD Negative (no code) 05-08-2018 no information 13:08-0400 U CASTS NONE SEEN (no code) 05-08-2018 no information 13:08-0400 U CRYSTALS NONE SEEN (no code) 05-08-2018 no information 13:08-0400 U CULTURE SET NO (no code) 05-08-2018 no informati on 13:08-0400 U EPITHELIAL MODERATE (no code) 05-08-2018 no informatio n 13:08-0400 U GLUCOSE Negative (no code) 05-08-2018 no information 13:08-0400 U MICROSCOPIC See Below (no code) 05-08-2018 no informati on 13:08-0400 U MUCUS Negative (no code) 05-08-2018 no information 13:08-0400 U NITRITE Negative (no code) 05-08-2018 no information 13:08-0400 U PROTEIN Negative (no code) 05-08-2018 no information 13: U SP GRAVITY 1.015 (no code) 05-08-2018 no informatio n 13:040 U TURBIDITY Clear (no code) 05-08-2018 no information 13: Urobilinogen 0.2 (no code) 05-08-2018 no informatio n Test strip Qn 13: (U) no information no information (no code) 05-08-2018 no infor mation 12:49-0400 no information no information (no code) 05-08-2018 no infor mation 13:080400 no information no information (no code) 05-08-2018 no infor mation 13:13040 metabolic panel on 2018-05-08 Albumin mass 3.7 g/dL (no code) 3.4 - 5.4 g/dL 05-08-2018 no i nformation conc 13: ALP enzyme 87 U/L (no code) 44 - 147 U/L 05-08-2018 no infor mation act/vol 13: ALT enzyme 18 U/L (no code) 4 - 40 U/L 05-08-2018 no informa tion act/vol 13:040 Bilirubin mass 0.2 mg/dL (no code) 0.1 - 1.2 mg/dL 05-08-2018 n o information conc 13: Bilirubin.direct 0.1 mg/dL (no code) 0 - 0.3 mg/dL 05-08-2018 n o information mass conc 13:040 Calcium mass 9.3 mg/dL (no code) 8.5 - 10.2 mg/dL 05-08-2018 no information conc 13:040 Chloride molar 104 mmol/L (no code) 95 - 106 mmol/L 05-08-2018 no information conc 13:13040 CO2 molar conc 29 mmol/L (no code) 23 - 29 mmol/L 05-08-2018 no information 13:130400 Creatinine mass 0.8 mg/dL (no code) 05-08-2018 no informa tion conc 13:040 GFR/1.73 sq M >60 (no code) 05-08-2018 no informati on predicted among 13: non-blacks MDRD vol rate/area (S/P/Bld) GFR/1.73 sq 83 (no code) 05-08-2018 no information M.predicted MDRD 13: vol rate/area Glucose mass 110 mg/dL (no code) 60 - 125 mg/dL 05-08-2018 no i nformation conc 13: Potassium molar 3.4 mmol/L (L) 3.7 - 5.2 mmol/L 05-08-2018 no information conc 13: Protein mass 7.5 g/dL (no code) 6.4 - 8.3 g/dL 05-08-2018 no i nformation conc 13: Sodium molar 140 mmol/L (no code) 135 - 145 mmol/L 05-08-2018 n o information conc 13: Urea nitrogen 6 mg/dL (L) 7 - 20 mg/dL 05-08-2018 no in formation mass conc 13: hematology on 2018-05-08 Basophils Auto 0.05 10*3/uL (no code) 0 - 0.3 10*3/uL 05-08-2018 no information #/vol (Bld) 12:490400 Basophils/100 0.60 % (no code) 0.5 - 1 % 05-08-2018 no infor mation WBC Auto (Bld) 12:49040 Eosinophils Auto 0.14 10*3/uL (no code) 0.05 - 0.5 05-08-2018 n o information #/vol (Bld) 10*3/uL 12:49-0400 Eosinophils/100 1.80 % (no code) 1 - 4 % 05-08-2018 no inf ormation WBC Auto (Bld) 12:49 Erythrocyte 13.0 % (no code) 11.6 - 14.6 % 05-08-2018 no inf ormation distribution 12:49 width Auto Ratio (RBC) Hematocrit Auto 39.0 % (no code) 36.1 - 50.3 % 05-08-2018 no information Volume Fraction 12:49 (Bld) Hemoglobin mass 12.9 g/dL (no code) 12.1 - 17.2 g/dL 05-08-2018 no information conc (Bld) 12:49-0400 Lymphocytes Auto 1.78 10*3/uL (no code) 0.9 - 2.9 05-08-2018 no information #/vol (Bld) 10*3/uL 12:49-0400 Lymphocytes/100 22.3 % (no code) 20 - 40 % 05-08-2018 no inf ormation WBC Auto (Bld) 12:49-0400 MCH Auto Entitic 28.9 pg (no code) 27 - 31 pg 05-08-2018 no i nformation mass (RBC) 12:49 MCHC Auto mass 33.1 g/dL (no code) 32 - 36 g/dL 05-08-2018 no i nformation conc (RBC) 12:49040 MCV Auto Entitic 87.4 fL (no code) 80 - 100 fL 05-08-2018 no information volume (RBC) 12:49-0400 Monocytes Auto 0.55 10*3/uL (no code) 0.3 - 0.9 05-08-2018 no i nformation #/vol (Bld) 10*3/uL 12:49-0400 Monocytes/100 6.9 % (no code) 2 - 8 % 05-08-2018 no infor mation WBC Auto (Bld) 12:490400 Neutrophils Auto 5.43 10*3/uL (no code) 1.7 - 7 10*3/uL 05-08-20 18 no information #/vol (Bld) 12:49-0400 Neutrophils Auto RANDOM (no code) 05-08-2018 no inform ation #/vol (Bld) 13:08-0400 Neutrophils/100 68.0 % (no code) 40 - 60 % 05-08-2018 no inf ormation WBC Auto (Bld) 12:49-0400 Platelets Auto 303 (no code) 05-08-2018 no informat ion #/vol (Bld) 12:490400 RBC Auto #/vol 4.46 (no code) 05-08-2018 no informat ion (Bld) 12:49-0400 RBC morphology NOT INDICATED (no code) 05-08-2018 no inform ation finding Nom 12:49-0400 (Bld) WBC Auto #/vol 8.0 (no code) 05-08-2018 no informat ion (Bld) 12:49-0400 other Ordered By: CHAPIS SALDANA on 2018-03-23 Integrated Campaign Manager Social Work (no code) 03-23-2018 Lucy alvarado Authentication Discharge 08:180400 Healthcare Interface Summary~~At ([id number]) Message Text admission: Pt is a 42yo female who was [facility] HOSPITAL~from [facility] in [place], [place] due to SA wherein pt ingested seroquel, blood~pressure medication, and #112 gabapentin 800mg tabs over the span of several~days. Pt reported that she is struggling with adjusting to her currently life~situation and shame/regret of her past behaviors. Pt reported that she has seen~a worsening depression for the last 6 weeks. Pt advised that her has~been financially supporting pt for the last 9yrs and has been in correction~for the last 1yr; now sentenced to 8yrs in [facility] for selling marijuana. Pt~reported that she is struggling with being without and worried about her~living situation as 's grandmother is currently paying pt's bills. 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 At one time, pt was away from her children for 5yrs. Pt has hx~of major depressive disorder and bipolar disorder.~~At discharge: Pt presented nervous to d/c but reported that she is genuinely~feelin g better. Pt reported improved mood and stated that she feels that she can~be safe at home. Pt has been on unit for 6 days and has stayed in her room and~isolated. Pt has slept often during the day and then will get up and move around~more in the afternoon and evening. Pt denied SI, SIB, HI, and AH/VH. SW and pt~discussed discharge planning, aftercare goals, and reviewed follow up~appointments. SW encouraged pt to call [facility] with concerns or questions about~discharge planning post discharge. SW provided pt with crisis numbers for~pt\\[id number]\\s area. Pt verbalized understanding of discharge plan and follow up~appointments. ~~Strengths, challenges and recommendations going forward: Pt is resilient and~wants to do well. She is bright and knows her resources. It is recommended that~pt attend all follow up appointments and continues to take medication as~prescribed. Pt would benefit from dual dx treatment and a DBT program.~~Next steps beyond discharge: Pt will be picked up by cab and taken to pharmacy~and then home.~~ obtained funds for 2 weeks of pt's medication through [facility]:~~Tenormin 50mg $7.13 14 tabs, 2 weeks [facility]~Buspar 30mg $69.50 28 tabs, 2 weeks [facility]~Clonidine 0.1mg $7.43 24 tabs, 2 weeks [facility]~Neurontin 800mg $14.00 56 caps, 2 weeks [facility]~Seroquel 300mg $19.24 14 tabs, 2 weeks [facility]~Zoloft 100mg $7.44 14 tabs, 2 weeks [facility]~Trazodone 100mg $9.71 28 tabs, 2 weeks [facility]~Melatonin $4.57 1 bottle [facility]~~~ Discharging to (physical address): home [address]~[facility] [address]~~Medicatio n Appointment: Medical appointment with Dr. Deondre Shaffer on Friday~03/27/18 at 3:20pm.~Psychoth erapy Appointment: Intake for psychiatric services with Jojo Haley on~Friday03/24/18 at 2:00pm.~Other Appointments: na~~[facility]~[address]~[place] [address]~[phone]~ ~~For emergency mental health needs, please call [facility]~Crisis [phone]~Suicide hotline number: 3-639-NTWBKZA (532-1210)~~~Saf ety Plan~~List the early warning signs (internal & external) of becoming upset that you~have learned to recognize (be specific):~~Shor tness of breath and sweating~~Identi fy the healthy skills you have learned to help you manage through, or~prevent, a crisis:~~Deep breathing~~If you have tried your skills and are still struggling, identify the safe people~and places in your life that you can go to for help (family, friends, teacher,~neighbo r, clergy, therapist, mental health center, etc) and indicate how they~can help:~~Support Name: Mary (mom) How they can help: just being~there~Supp ort Name: Khushbu (daughter) How they can help: just being there~~If you have exhausted your skills and are unable to find one of the people~identifie d above, who will you reach out to?~~My doctor~~Professi onals or agencies I can contact during a crisis:~ [facility]~ [address]~ [place] [address]~ [phone]~~ [facility]~ [address] [facility]~ [place] [address]~ ~~Suicid e hotline number: 7-943-RUGNAMS (112-6400)~Suici de text line: Text "connect" to 789921.~~When you have successfully managed through a difficult time, who would you need~to notify and process the event with? Who can you talk to after a crisis?~~My mom~~What changes will you, or those around you, make to the environment to increase~a sense of safety? How will you stay safe?~~Being around other people~~Addition al Protective Factors:~Somethi ng/someone important to me and worth taking care of myself for is family.~~Rate the following areas on a scale of 1 to 5 (1 being needs a great deal of~work and 5 being this area is going very well):~ Housing situation: __2__~ Employment: __1__~ Financially able to get basic needs met: __1__~ Psychological Needs Met: __1__~ Physical Needs Met (free from pain): __1__~ Social Support System: __1__~~~ other Ordered By: MILAN JACKSON on 2018-03-23 Integrated Campaign Manager Lucy Thompson (no code) 03-23-2018 Lucy alves [facility]~[address] 10:28-0400 Healthcare Interface [employer]th ([id number]) [address]~[place] [address]~~~Psychiatry Discharge Summary~03/23/2018 ~~For:~KELLY ALEXANDRE~Date of : 1975~Admit date: 03/17/2018~Discha rge date: 03/23/2018 or 03/23/2018~[facility] Physician: Pablo Duarte MD~Discharge Physician: Christo Blackman APRN/Milan Jackson DO~Diagnosis on discharge Bipolar II disorder (HCC), see below axis diagnosis as~well~~Circums tances of admission:~Pleas e consult initial H&P Psychiatric documentation as well.~Chief Complaint:~"I've just been real depressed"~\\XC2A 0\\~History of Presenting Illness: (4 or 3)~The patient was seen and evaluated with Mialn Jackson DO. The patient is a 42~y.o., , , female with a psychiatric history of major depressive~disor neda and bipolar disorder [place] [facility] [place] and admitted on a voluntary basis at [facility] with c/c of suicide attempt by overdose on 03/16/18. Patient~reported she could have taken up to 112 capsules of Gabapentin 800 mg tablets~one hour prior to her arrival in the ED. She reported she had taken all of her~Seroquel and blood pressure medications 2 days prior and fell asleep. She~stated she woke this morning and took all her Gabapentin prior to contacting~EMS. No medical attention was sought following the overdose on Seroquel and~blood pressure medications. She stated "I just wanted to go to sleep and not~wake up". Reports a significant decline in her baseline level of functioning~with the following symptoms of feelings of hopelessness, helplessness,~wo rthlessness, poor appetite, tearfulness, isolation, sleep disturbance,~imp ulsive, change in energy level, impaired concentration, loss of interest,~feelin gs of doom, and anxiety. Reports suicidal thoughts started about 6 weeks~ago. Reports other SI with a specific plan to cut her wrists. Reports~depressi on and anxiety started to worsen 1.5 months ago. Stressors include her~ is going to [facility] for 8 years. 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 Support system is 2 children ages 21 and 19, her mother~and sister. Patient denies any symptoms of psychosis, OCD, PTSD, panic~disorder, social or specific phobia, eating disorder, somatic symptom disorder,~intell ectual disabilities, autistic spectrum disorder. Patient denies any~homicidal ideation, auditory, visual or tactile hallucinations, delusions.~Patie nt reports being diagnosed with bipolar disorder in the past and reports~symptoms of jonelle of increased energy, pressured speech, impulsive, and~decreased need for sleep.~~Admissio n Diagnosis(primar y):~Principal Diagnosis: Bipolar II Disorder, Current or Most recent episode~depresse d~\\XC2A0\\~Second eva Diagnoses:~Gener alized Anxiety Disorder~\\XC2A0\\ ~Additional: H/O Cannabis-Related Disorder - Cannabis Use Disorder~Opioid- Related Disorder - Opioid use Disorder~Sedativ e, Hypnotic, or Anxiolytic Related Disorder - Sedative, Hypnotic, or~Anxiolytic Use Disorder~\\XC2A0\\ ~Additional: GERD, HTN, HLD, History of seizures with withdrawal from substances~and history of pseudoseizures.~ ~Hospital Course:~The patient was admitted for safety, crisis intervention, mood stabilization and~medication management when indicates. she was started on the standard~admissi on protocol. Continued on outpatient medications on admission. The~multidiscipl inary treatment team identified problems with Mood disorder, SI,~Substance abuse and discharge planning. The treatment team goals addressed the~patient's problem list including safety, stabilization, crisis intervention,~in dividual and group therapy, medication management, psychosocial assessment and~discharge planning. The pt was placed on suicide watchfulness with every 15~minutes rounds. A therapeutic milieu was provided. The following issues were~addressed during this hospitalization. ~~1. Bipolar II Disorder, Current or Most recent episode depressed: The pt was~interviewed, chart was reviewed and psychiatric diagnosis was established.~Dis cussed with the pt in length regarding longitudinal mental health course,~previous psychiatric medication trials and responses, precipitating and~perpetuating factors for this admission.~~Day 1 (03/18)-Medicatio n Changes (1 with w/u/11/23): Discussed with the patient in~detail about the above diagnostic impression. The patient has been admitted with~severe exacerbation of suicidal ideation, anxiety and depression, with a plan~to overdose or cut her wrists. There is a recent change of mood, safety status~required an ED visit and inpatient psychiatric admission.~\\XC2A 0\\~Discussed with the patient in detail about the options with antidepressants, ~SSRI's, mood stabilizers and anxiolytics . Reviewed with the patient the~potential benefits and risks of dose adjustment of the medications. The patient~agreed to start Zoloft 25 mg daily for anxiety and depression. Will start~Neosporin BID topically to right knee abrasion. Will restart her home~medications :~Atenolol 50 mg daily for HTN~Buspar 15 mg TID for anxiety~Clonidin e 0.1 mg BID for HTN~Gabapentin 800 mg QID~Seroquel 300 mg BID for mood~Trazodone 100 mg at bedtime for sleep, will add administration instructions~sta ting may repeat dose in 1 hour prn sleep.~~Day 2 (03/19)-Chief Complaint:~"I'm afraid to leave"~\\XC2A0\\~C urrent Status of Presenting Problems: (4 or 3)~The patient was seen and evaluated today for severe depression, severe anxiety~and suicidal ideations. Patient's care resumed and discussed with the treatment~team and EMR chart reviewed. The patient endorses severe depression and anxiety~both 06/29. She reports ruminating about suicide if she leave which she finds~distressin g but is hard not to worry about. States she is concerned that she~will be discharged before she is ready. States sleeping well last night. No~specific suicde plan. Is very tired today. Denies HI/AVH~\\XC2A0\\~T olerating current medications well. Compliant with medications and unit rules.~Interacti ng with the staff and peers appropriately. No episodes of angry~outbursts, agitation, aggressive behavior towards others. No episodes of SIB. No~signs of paranoia, disorganized thoughts or behaviors, jonelle or psychosis.~Patie nt participates in groups and unit activities. Reports active suicidal but~not homicidal ideation, Denies auditory, visual or tactile hallucinations or~delusions. Addressed ways to help build patient's ability to accept support from~others and attempted to explore other supports that could help the patient~function safely outside of the hospital.~Medica tion change:~Add Abilify 5mg po qam for bipolar depression start tomorrow~Switch Seroquel 300 mg BID to qhs to allow for transition to Abilify for less~sedating agent fr her bipolar depression~One time dose of Monurol 3g po for empiric treatment of UTI per positive UA~Add klononpin 0.25mg po q6hr PRN for anxiety as other non BDZ options not~tolerated or ineffective~\\XC2 A0\\~Continue~Zol oft 25 mg daily for anxiety and depression. Increase tomorrow to 50mg~Neosporin BID topically to right knee abrasion.\\XC2A0\\ \\XC2A0\\~Atenolol 50 mg daily for HTN~Buspar 15 mg TID for anxiety~Clonidin e 0.1 mg BID for HTN~Gabapentin 800 mg QID~Trazodone 100 mg at bedtime for sleep, may repeat dose in 1 hour prn sleep.~~Day 3 (03/20)-Chief Complaint:~"I think of using a razor"~\\XC2A0\\~C urrent Status of Presenting Problems: (4 or 3)~The patient was seen and evaluated today for severe depression, severe anxiety~and suicidal ideations. Patient's care resumed and discussed with the treatment~team and EMR chart reviewed. The patient endorses continued 8-9/10 anxiety and~depression. Slept restlessly last night and fel tired today. States she is a~night person ans usually sleeps during the day. Took zyprexa this Am and it~helps calm her. 0.25mg clonazepam is not as helpful for anxiety. Is tired today.~Continues to have ruminating thoughts of suicide.~\\XC2A0\\ ~Tolerating current medications well. Compliant with medications and unit rules.~Interacti ng with the staff and peers appropriately. No episodes of angry~outbursts, agitation, aggressive behavior towards others. No episodes of SIB. No~signs of paranoia, disorganized thoughts or behaviors, jonelle or psychosis.~Patie nt participates in groups and unit activities. Reports active suicidal ,~no homicidal ideation, Denies auditory, visual or tactile hallucinations or~delusions. Addressed ways to help build patient's ability to accept support from~others and attempted to explore other supports that could help the patient~function safely outside of the hospital.~Medica tion change:~Increase Abilify to 7.5mg po qam for bipolar depression start tomorrow~Decreas e Seroquel 300 qhs to 200mg allow for transition to Abilify for less~sedating agent for her bipolar depression~Incre ase klononpin to 0.5mg po q6hr PRN for anxiety as 0.25mg ineffective~Incr ease Trazodone to 200 mg at bedtime for sleep~\\XC2A0\\~Co ntinue~Zoloft 25 mg daily for anxiety and depression. Increase tomorrow to 50mg~Neosporin BID topically to right knee abrasion.\\XC2A0\\ \\XC2A0\\~Atenolol 50 mg daily for HTN~Buspar 15 mg TID for anxiety~Clonidin e 0.1 mg BID for HTN~Gabapentin 800 mg QID~~Day 4 (03/21)-Chief Complaint:~"I am still feeling pretty down in the dumps"~\\XC2A0\\~C urrent Status of Presenting Problems: (4 or 3)~The patient was seen and evaluated today for severe depression, severe anxiety~and suicidal ideations. Patient's care resumed and discussed with the treatment~team and EMR chart reviewed. The patient endorses thoughts of suicide and self~harm by cutting her wrists. She reports having difficulty sleeping last night~due to racing thoughts. She is hoping the Abilify will help in relieving this.~Patient continues to experience increased anxiety and was agreeable to an~increase in Buspar. Patient has attended NA in the past and plans to return so~she is less isolative when she returns home, particularly since she is now~living alone. Encouraged patient to spend time in the day area and to attend~groups rather than return to bed after breakfast. Patient feels her mood~instability would prevent her from taking employment but may consider some~volunteer work.~\\XC2A0\\~To lerating current medications well. Compliant with medications and unit rules.~Interacti ng with the staff and peers appropriately. No episodes of angry~outbursts, agitation, aggressive behavior towards others. No episodes of SIB. No~signs of paranoia, disorganized thoughts or behaviors, jonelle or psychosis.~Patie nt participates in groups and unit activities. Denies homicidal ideation,~denies auditory, visual or tactile hallucinations or delusions. Addressed ways~to help build patient's ability to accept support from others and attempted to~explore other supports that could help the patient function safely outside of~the hospital.~Medica tion change: Increase Buspar to 60 mg TID~~Day 5 (03/22)-Chief Complaint:~"I did not get relief from the Valium"~\\XC2A0\\~ Current Status of Presenting Problems: (4 or 3)~The patient was seen and evaluated today for severe depression, severe anxiety,~suicida l ideations, homicidal ideations, auditory hallucinations, visual~hallucina tions, delusions and paranoia . Patient's care resumed and discussed~with the treatment team and EMR chart reviewed. The patient denies any thoughts~of suicide or self harm this morning. Patient states she feels less anxious~today. She feels the Abilify and possibly the nicotine patch contributed to her~anxiety yesterday. Patient feels she gets more relief from the Zyprexa PRN than~the Valium. Patient continues to rate her depression at a significantly high~level. Patient had some difficulty falling asleep but slept after receiving the~PRN Zyprexa at 0109. Patient is more spontaneous in conversation today and has~spent more of her time in the day area.~\\XC2A0\\~To lerating current medications well. Compliant with medications and unit rules.~Interacti ng with the staff and peers appropriately. No episodes of angry~outbursts, agitation, aggressive behavior towards others. No episodes of SIB. No~signs of paranoia, disorganized thoughts or behaviors, jonelle or psychosis.~Patie nt participates in groups and unit activities. Denies active suicidal or~homicidal ideation, denies auditory, visual or tactile hallucinations or~delusions. Addressed ways to help build patient's ability to accept support from~others and attempted to explore other supports that could help the patient~function safely outside of the hospital.~Medica tion change: Increased Zoloft to 100 mg daily. Adjusted PRN Zyprexa to 5~mg QID.~~ she tolerated the medication changes without major side effects. The pt was~encouraged to participate in individual, group and milieu therapies during this~hospitaliza tion. Pt started sleeping better, appetite improved. The pt worked~on safety plan, improving coping skills, stress management. Denied having any~access to firearms/weapons . The pt felt safe to go home today and discharged in~a stable condition.~~[place] abis/Substance use disorder : Counseled and educated the pt about risks of~using illicit drugs, benefits of quit using street drugs, maintain sobriety and~importance of compliance. The pt verbalized understanding, agreed with the plan~to stay sober, follow-up with the outpatient providers and psych services to~improve outcome and prognosis. Monitored closely during this hospitalization~ and no withdrawal symptoms noted or reported.~~2.The pt had a physical exam performed at [facility] in [place], [place].~Acute medical problems were addressed. Lab review done at [facility]~[place], [place] on 03/16/18: CBC WNL except platelet count 403, monocytes % 13.~CMP WNL except carbon dioxide level 19, BUN 5, glucose 121, calcium 10.3, total~protein 8.6, albumin 5.0. Salicylates level<5.0, Acetaminophen level<10.~BAL<10 . Magnesium 2.6. UA with 1+ leukocyte esterase so will repeat this here~as urine culture was indicated. UDS negative. Urine test negative.~TSH completed here on 03/19/18, WNL UAIF completed here on 03/18/18, showed~infection and patient was treated with antibiotic on 03/19/18.~~3.At the time of discharge, the patient's mood was improved, brighter affect.~The patient achieved the goals of inpatient hospitalization. The pt's condition~improv ed. Denies any suicidal or homicidal ideation. Denied any AH/VH or~delusions. The pt verbalized understanding if develops any SI or HI in the~future, notify opt treaters or seek emergency services for immediate~interv entions.~~4.Disc harge prognosis is fair.~~Please consult SW assessment, nursing treatment plan, as well as OT,~psych/neurop sych testing and hospitalist's consult if available.~~Cons ults:~~See records as well~Significant Labs:~Lab Results~Componen t Value Date/Time~ TSH 0.778 03/19/2018 05:40 AM~~No components found for: TSHREFLEX~No results found for: FREET4~No components found for: FOLIC ACID~No results found for: FOLATE~No results found for: [id number]~~Last CT/MRI:~No results found for this or any previous visit.~~Medicati on changes:~Medicat ions Discontinued During This Encounter~Medica tion Reason~\\WU490A7\\ QUEtiapine (SEROQUEL) tablet 300 mg~\\SO401H4\\ traZODone (DESYREL) tablet 100 mg~\\ZC913M6\\ sertraline (ZOLOFT) tablet 25 mg~\\NX959Y2\\ clonazePAM (KLONOPIN) tablet 0.25 mg~\\FN593A2\\ QUEtiapine (SEROQUEL) tablet 300 mg~\\FW830H7\\ ARIPiprazole (ABILIFY) tablet 5 mg~\\PQ853I7\\ busPIRone (BUSPAR) tablet 15 mg~\\RB661I2\\ ARIPiprazole (ABILIFY) tablet 7.5 mg~\\ZK472T6\\ QUEtiapine (SEROQUEL) tablet 200 mg~\\NS924T8\\ clonazePAM (KLONOPIN) tablet 0.5 mg~\\HD366W5\\ OLANZapine (ZYPREXA) tablet 10 mg~\\BU068D7\\ OLANZapine (ZYPREXA ZYDIS) disintegrating tablet 10 mg~\\JN942C9\\ sertraline (ZOLOFT) tablet 50 mg~\\YH303J1\\ diazePAM (VALIUM) tablet 5 mg~\\DE144Q6\\ busPIRone (BUSPAR) tablet 20 mg~\\QQ620D8\\ diazePAM (VALIUM) tablet 10 mg~\\BN963D0\\ diazePAM (VALIUM) tablet 10 mg~\\GV513L6\\ ondansetron (ZOFRAN-ODT) 4 MG disintegrating tablet~\\XY088C4\\ ranitidine (ZANTAC) 150 MG tablet~\\HA126M8\\ QUEtiapine (SEROQUEL) 300 MG tablet~\\NN729C0\\ traZODone (DESYREL) 100 MG tablet~\\AO184K8\\ gabapentin (NEURONTIN) 400 MG capsule~\\VF141Z2 \\ cloNIDine (CATAPRES) 0.1 MG tablet~\\LL051M5\\ busPIRone (BUSPAR) 15 MG tablet~\\LD734W5\\ atenolol (TENORMIN) 50 MG tablet~\\DZ074T2\\ buPROPion (WELLBUTRIN SR) 150 MG 12 hr tablet~\\TB742C0\\ diazePAM (VALIUM) tablet 10 mg Patient Discharge~\\XE280 A2\\ busPIRone (BUSPAR) tablet 30 mg Patient Discharge~\\XE280 A2\\ sertraline (ZOLOFT) tablet 100 mg Patient Discharge~\\XE280 A2\\ OLANZapine (ZYPREXA ZYDIS) disintegrating tablet 10 mg Patient Discharge~\\XE280 A2\\ OLANZapine (ZYPREXA) tablet 5 mg Patient Discharge~\\XE280 A2\\ QUEtiapine (SEROQUEL) tablet 300 mg Patient Discharge~\\XE280 A2\\ melatonin tablet 1 mg Patient Discharge~\\XE280 A2\\ traZODone (DESYREL) tablet 200 mg Patient Discharge~\\XE280 A2\\ bacitracin-neomy marlena-polymyxin (NEOSPORIN) ointment Patient Discharge~\\XE280 A2\\ ibuprofen (ADVIL,MOTRIN) tablet 600 mg Patient Discharge~\\XE280 A2\\ famotidine (PEPCID) tablet 20 mg Patient Discharge~\\XE280 A2\\ atenolol (TENORMIN) tablet 50 mg Patient Discharge~\\XE280 A2\\ cloNIDine (CATAPRES) tablet 0.1 mg Patient Discharge~\\XE280 A2\\ gabapentin (NEURONTIN) capsule 800 mg Patient Discharge~\\XE280 A2\\ nicotine polacrilex (COMMIT) lozenge 2 mg Patient Discharge~\\XE280 A2\\ nicotine polacrilex (NICORETTE) gum 2 mg Patient Discharge~\\XE280 A2\\ nicotine (NICODERM CQ) 14 MG/24HR 1 patch Patient Discharge~\\XE280 A2\\ acetaminophen (TYLENOL) tablet 650 mg Patient Discharge~\\XE280 A2\\ alum & mag hydroxide-simeth icone (MYLANTA) 200-200-20 MG/5ML liquid 30 mL~Patient Discharge~\\XE280 A2\\ magnesium hydroxide (MILK OF MAGNESIA) 400 MG/5ML suspension 30 mL Patient~Discharg e~~~~~Current status(discharge day):~The patient was seen and evaluated today. Reported overall improvement of~depressed, anxious mood and diminished in intensity.States better control of~anxiety with new valium dose. Denied SI or HI. The patient has not exhibited~any SIB during hospitalization and denied urges to harm self outside the~hospital setting. Denied urges to harm others and has not exhibited agitation,~aggre ssive behavior during hospitalization. Denied experiencing hallucinations~o r delusions and has not exhibited grossly disorganized behavior. The patient~reported sleeping and eating well. Denied acute medical complaints. The~patient has been adherent to medications as prescribed and reported medications~help ful and well tolerated. Denies any side effects, EPS, TD, dystonia. The~patient actively participated in groups and unit activities and developed a~relapse prevention plan. The patient has developed a suicide safety, relapse~preventi on plan and addressed coping skills for stress and frustration. The pt~requested discharge today, hopeful, optimistic about current med regimen. Feels~safe to go home today. Denies access to firearms/weapons . Met goals of acute~hospitaliz ation including crisis stabilization, medication management, safety~and after care plan. The pt agreed to keep outpatient follow up appointments as~scheduled and recommended. Addressed ways to improve coping skills, stress~managemen t, relaxation techniques, behavioral interventions to improve~communic ation and anger management. Discussed issues on relapse prevention,~impo rtance of compliance with medications and follow-up appointments. The pt~worked on improving coping skills, stress management skills. Discussed with~thept diagnostic impressions, treatment options, benefits of compliance, risks~of using drugs, relapse prevention, safety plan. Discussed risks/benefits and~alternative treatment options, black box warning, potential risks of metabolic~syndro me, EPS, Tardive dyskinesia, dystonia, risks with psychotropics.~E ncouraged to stop using any street drugs, avoid any triggers and maintain~sobriet y. The pt verbalized understanding, agreed with the plan.~~~Mental Status Evaluation on discharge :~~Appearance: age appropriate, casually dressed, well dressed, tics or abnormal~movemen ts - no, visible physical deformities noted - no, good grooming hygiene~and gait and station normal~Attitude/ Behavior: unremarkable, cooperative and able to make good eye~contact~Mood : anxious~Affect: constricted~Spee ch: appropriate quality, quantity and organization of sentences fluent~rational~ Thought Process: content of thought is appropriate to the topic no unusual~preoccup ations grossly intact. Content of thought is appropriate to the topic~and no unusual preoccupations.~ Thought Content: no psychosis~Sensor ium: oriented x 3~Cognition: grossly intact and Attention span and concentration: fair~Insight: Grossly intact and grossly intact~Judgment: Grossly intact and grossly intact~Suicidal Ideation: Denies~Homicidal Ideation: no~Self-Injuriou s Urges: no~~~Vital signs :~Visit Vitals~BP (!) 121/92 (BP Location: Left arm, Patient Position: Standing)~Pulse 98~Temp 97.4 \\XC2B0\\F (36.3 \\XC2B0\\C)~Resp 17~Ht 1.702 m (5' 7")~Wt 84.4 kg (186 lb)~SpO2 98%~BMI 29.13 kg/m\\XC2B2\\~~~~L abs: (from this encounter)~Resul ts for orders placed or performed during the hospital encounter of 03/17/18~Urine Culture~Result Value Ref Range~ Urine Culture >100,000 CFU/mL Escherichia coli~ Susceptibility~ Escherichia coli - (no method available)~ Amikacin <=2 Sensitive ug/mL~ Amoxicillin + Clavulanate 16 Intermediate ug/mL~ Ampicillin >=32 Resistant ug/mL~ Amp/Sulbactam(c) . 16 Intermediate ug/mL~ Aztreonam <=1 Sensitive ug/mL~ Cefazolin <=4 Sensitive ug/mL~ Cefepime <=1 Sensitive ug/mL~ Ceftriaxone <=1 Sensitive ug/mL~ Ciprofloxacin <=0.25 Sensitive ug/mL~ Ertapenem <=0.5 Sensitive ug/mL~ Gentamicin <=1 Sensitive ug/mL~ Levofloxacin <=0.12 Sensitive ug/mL~ Meropenem <=0.25 Sensitive ug/mL~ Nitrofurantoin 64 Intermediate ug/mL~ Piperacillin + Tazobactam 8 Sensitive ug/mL~ Tetracycline 2 Sensitive ug/mL~ Trimethoprim + Sulfamethoxazole >=320 Resistant ug/mL~Urinalysis , Reflex Culture If Needed~Result Value Ref Range~ Color, UA Yellow~ Appearance Cloudy~ Specific [place], UA 1.025 1.003 - 1.030~ pH, UA 5.5 5.0 - 8.0~ Leukoesterase, UA Trace (A) Negative~ Nitrites, UA Positive (A) Negative~ Protein, UA Trace (A) Negative~ Glucose, UA Negative Negative~ Ketones, UA 1+ (A) Negative~ Urobilinogen, UA 0.2 0.2 EU/dL~ Bilirubin, UA Negative Negative~ Hemoglobin, UA Negative Negative~ Squam Epithel, UA 1+ /hpf~ WBC, UA 11-20 (A) 0 - 3 /hpf~ RBC, UA 0-3 0 - 3 /hpf~ Bacteria, UA 4+ /ul~ Hyaline Casts, UA 12 /lpf~TSH (Reflex Free T4 if abnormal)~Result Value Ref Range~ TSH 0.778 0.400 - 4.000 uIU/mL~~~~Active Hospital Problems:~ Diagnosis Date Noted~\\EJ306T4\\ *Principal Problem*: Bipolar II disorder (HCC) [F31.81] 03/17/2018~\\XE28 0A2\\ NAM (generalized anxiety disorder) [F41.1] 03/18/2018~~Reso lved Hospital Problems~ Diagnosis Date Noted Date Resolved~\\EG888U 2\\ Suicidal ideation [R45.851] 03/18/2018 03/23/2018~~~~Di teto Diagnoses:~~~Matilda ncipal Diagnosis: Bipolar II Disorder, Current or Most recent episode~depresse d~\\XC2A0\\~Second eva Diagnoses:~Gener alized Anxiety Disorder~\\XC2A0\\ ~Additional: H/O Cannabis-Related Disorder - Cannabis Use Disorder~Opioid- Related Disorder - Opioid use Disorder~Sedativ e, Hypnotic, or Anxiolytic Related Disorder - Sedative, Hypnotic, or~Anxiolytic Use Disorder~\\XC2A0\\ ~Additional: GERD, HTN, HLD, History of seizures with withdrawal from substances~and history of pseudoseizures.~ ~~~Medications on discharge/transf er:~Current Discharge Medication List~~START taking these medications~ Details~diazePAM (VALIUM) 10 MG tablet Take 1 tablet (10 mg total) by mouth 2 (two)~times daily as needed for Anxiety. Indications: Feeling Anxious Do not exceed a~daily dose of 20 mg~Qty: 30 tablet, Refills: 0~ Associated Diagnoses: NAM (generalized anxiety disorder)~~famot idine (PEPCID) 20 MG tablet Take 1 tablet (20 mg total) by mouth 2 (two)~times daily as needed (takes for heartburn/GERD). Indications: Gastroesophageal ~Reflux Disease~Qty: 15 tablet, Refills: 0~ Associated Diagnoses: Gastroesophageal reflux disease, esophagitis presence not~specified~~m elatonin 1 MG TABS tablet Take 1 tablet (1 mg total) by mouth at bedtime.~Indicat ions: Trouble Sleeping~Qty: 15 tablet, Refills: 0~ Associated Diagnoses: Bipolar II disorder (HCC)~~sertralin e (ZOLOFT) 100 MG tablet Take 1 tablet (100 mg total) by mouth daily.~Qty: 15 tablet, Refills: 0~ Associated Diagnoses: Bipolar II disorder (HCC)~~~CONTINUE these medications which have CHANGED~ Details~atenolol (TENORMIN) 50 MG tablet Take 1 tablet (50 mg total) by mouth daily.~Qty: 15 tablet, Refills: 0~ Associated Diagnoses: Hypertension, unspecified type~~busPIRone (BUSPAR) 30 MG tablet Take 1 tablet (30 mg total) by mouth 2 (two)~times daily.~Qty: 30 tablet, Refills: 0~ Associated Diagnoses: NAM (generalized anxiety disorder)~~cloNI Dine (CATAPRES) 0.1 MG tablet Take 1 tablet (0.1 mg total) by mouth 2 (two)~times daily.~Qty: 30 tablet, Refills: 0~ Associated Diagnoses: NAM (generalized anxiety disorder)~~gabap entin (NEURONTIN) 400 MG capsule Take 2 capsules (800 mg total) by mouth 4~(four) times daily.~Qty: 60 capsule, Refills: 0~ Associated Diagnoses: NAM (generalized anxiety disorder)~~QUEti apine (SEROQUEL) 300 MG tablet Take 1 tablet (300 mg total) by mouth at~bedtime.~Qty: 15 tablet, Refills: 0~ Associated Diagnoses: Bipolar II disorder (HCC)~~traZODone (DESYREL) 100 MG tablet Take 2 tablets (200 mg total) by mouth at~bedtime. Indications: Trouble Sleeping~Qty: 30 tablet, Refills: 0~ Associated Diagnoses: Bipolar II disorder (HCC)~~~STOP taking these medications~~ buPROPion (WELLBUTRIN SR) 150 MG 12 hr tablet~~ ranitidine (ZANTAC) 150 MG tablet~~ ondansetron (ZOFRAN-ODT) 4 MG disintegrating tablet~~~~~Couns eling/Coordinati on of Care:~~~Supporti ve, Cognitive, Milieu and Group~~~Follow up appointment:~\\XC 2A0\\~Intake for psychiatric services with Jojo Haley on Friday03/24/18 at 2:00pm.~~Medical appointment with Dr. Deondre Shaffer on Friday03/27/18 at 3:20pm.~~[facility]~[address]~[place] [address]~[phone]~ ~~For emergency mental health needs, please call [facility]~Crisis [phone]~Suicide hotline number: \\XC2A0\\1-800-OSCAR CIDE (936-1315)~\\XC2A 0\\~\\XC2A0\\~Safet y Plan~\\XC2A0\\~Lis t the early warning signs (internal & external) of becoming upset that you~have learned to recognize (be specific):~\\XC2A 0\\~Shortness of breath and sweating~\\XC2A0\\ ~Identify the healthy skills you have learned to help you manage through, or~prevent, a crisis:~\\XC2A0\\~ Deep breathing~\\XC2A0 \\~If you have tried your skills and are still struggling, identify the safe people~and places in your life that you can go to for help (family, friends, teacher,~neighbo r, clergy, therapist, mental health center, etc) and indicate how they~can help:~\\XC2A0\\~[place] Name: Mary (mom) How they can help: just being~there~Supp ort Name: Khushbu (daughter) How they can help: just being there~\\XC2A0\\~If you have exhausted your skills and are unable to find one of the people~identifie d above, who will you reach out to?~\\XC2A0\\~My doctor~\\XC2A0\\~P rofessionals or agencies I can contact during a crisis:~ [facility]~ [address]~ [place] [address]~ [phone]~\\XC2A0\\ ~ [facility]~ [address] [facility]~ [place] [address]~ ~\\XC2A0\\ ~Suicide hotline number: 9-903-CVIRHMA ([phone])~Suici de text line: Text "connect" to 616969.~\\XC2A0\\~ When you have successfully managed through a difficult time, who would you need~to notify and process the event with? Who can you talk to after a crisis?~\\XC2A0\\~ My mom~\\XC2A0\\~What changes will you, or those around you, make to the environment to increase~a sense of safety? How will you stay safe?~\\XC2A0\\~Be ing around other people~\\XC2A0\\~A dditional Protective Factors:~Somethi ng/someone important to me and worth taking care of myself for is family.~\\XC2A0\\~ Rate the following areas on a scale of 1 to 5 (1 being needs a great deal of~work and 5 being this area is going very well):~ Housing situation:~__2__ ~ Employment:~__1_ _~ Financially able to get basic needs met:~__1__~ Psychological Needs Met:~__1__~ Physical Needs Met (free from pain):~__1__~ Social Support System:~__1__~~~ Disposition: home. Dietary restrictions none. Activity restrictions as~tolerated.~~A dmission Condition: serious~Discharg e Condition: stable~~Other recommendations at the time of d/c: NONE~~Direct time spent in counseling, interacting and /or coordinating care with the~patient/fami ly/guardian: 30 minutes~Total time : 40 minutes~~Christo Blackman APRN~Electronic signature~03/23/20 2:20 PM~~CC:~To the above fax#s and to:~Deondre Shaffer MD~[phone]~ ~~~~Patient personally seen and interviewed. I agree with assessment and plan by Harriet.~Yehuda LEON . Patient reports improved mood and anxiety. She denies SI/HI and has~a clear safety cooper and is future oriented. Requests discharge to home and will~discharge her today.~~Milan Jackson DO~Electronic Signature~03/26/20 1:58 PM~~ other Ordered By: KEYON RICO on 2018-03-20 Integrated Campaign Manager ~ 03/20/18 (no code) 03-20-2018 [facility] l Authentication 1500~Spiritual 16:53-0400 Healthcare Interface Care ([id number]) Message Text Encounter~Reason for Visit Spirituality Group (comment)~Person s Visited Patient~Encounte r Type Group Setting~Location of Encounter Group Meeting Area (comment)~Religi ous Care Provided Scientologist Scripture;Devoti onal Material;Other Scientologist~Materi al~Spiritual Care Provided Facilitated Spirituality Group Discussion~Would the patient like a visit from a hospital vegetable sorter? /Spiritual care consult~needed No~Follow-up Not Needed~~Patient participated in 3pm group prayer/chapel.~~ Keyon Rico~Electron ically Signed~03/20/2018 3:53 PM~~~ other Ordered By: MILAN JACKSON on 2018-03-20 Integrated Campaign Manager [facility] (no code) 03-20-2018 [facility] Authentication Health~[address] 10:17-0400 Healthcare Interface 10th ([id number]) Message Text [address]~[place] [address]~~~Psychia try Behavioral Health Assessment~ 018~~Patient Name: Kelly Alexandre : 1975~Refer ring Physician: Deondre Shaffer MD ~Admission Date: 03/17/2018~~Chief Complaint:~"I think of using a razor"~~Current Status of Presenting Problems: (4 or 3)~The patient was seen and evaluated today for severe depression, severe anxiety~and suicidal ideations. Patient's care resumed and discussed with the treatment~team and EMR chart reviewed. The patient endorses continued 8-9/10 anxiety and~depression. Slept restlessly last night and fel tired today. States she is a~night person ans usually sleeps during the day. Took zyprexa this Am and it~helps calm her. 0.25mg clonazepam is not as helpful for anxiety. Is tired today.~Continues to have ruminating thoughts of suicide.~~Tolera ting current medications well. Compliant with medications and unit rules.~Interacti ng with the staff and peers appropriately. No episodes of angry~outbursts, agitation, aggressive behavior towards others. No episodes of SIB. No~signs of paranoia, disorganized thoughts or behaviors, jonelle or psychosis.~Patie nt participates in groups and unit activities. Reports active suicidal ,~no homicidal ideation, Denies auditory, visual or tactile hallucinations or~delusions. Addressed ways to help build patient's ability to accept support from~others and attempted to explore other supports that could help the patient~function safely outside of the hospital.~~Psych iatric Review Of Systems: ()~As Reported/Observe d~~Sleep Disturbance: yes~Appetite changes: no~Mood swings, mood irritability: yes~Lack of energy: yes~Somatic Symptoms: no~Anxiety, hopelessness: yes~Perceptual disturbance: no~Other: No EPS, Tardive dyskinesia or dystonia~Side Effects from Medications: denies~~Addition al Review of Systems: CVS: no , Respiratory: no and GI: no~~Relevant History: ()~Complian ce: yes~~Vitals Signs:~Visit Vitals~BP 118/74~Pulse 75~Temp 97.7 \\XC2B0\\F (36.5 \\XC2B0\\C)~Resp 18~Ht 1.702 m (5' 7")~Wt 84.4 kg (186 lb)~SpO2 99%~BMI 29.13 kg/m\\XC2B2\\~~~Ph ysical exam (): No cog wheel rigidity. Normal gait. No abnormal~involun tary movements present. No respiratory distress noted.~~Medical Complaints:~~Men madhu Status Evaluation:~Appe arance: age appropriate, casually dressed, well dressed, well nourished ,~tics or abnormal movements - no, visible physical deformities noted - no, good~grooming hygiene and gait and station normal~Behavior: unremarkable, cooperative and able to make good eye contact~Mood: anxious and depressed~Affect : constricted~Spee ch: appropriate quality, quantity and organization of sentences fluent~rational~ Thought Process: content of thought is appropriate to the topic no unusual~preoccup ations grossly intact~Thought Content: no psychosis~Sensor ium: oriented x3~Cognition: grossly intact and Attention span and concentration: fair~Memory: Able to relate recent and remote events accurately and demonstrates~chacorta quate immediate recall.~Impulse Control: Stable impulse control~Insight: Grossly intact~Judgment: Grossly intact~Suicidal Ideation: Specific plan to cut self with razor~Homicidal Ideation: no~Self-Injuriou s Urges: no~~Labs:~No results found for this or any previous visit (from the past 24 hour(s)).~~Curre nt Medications:~Cur rent Facility-Adminis tered Medications~Medi cation Dose Route Frequency Provider Last Rate Last Dose~\\[id number]\\ acetaminophen (TYLENOL) tablet 650 mg 650 mg Oral Q6H PRN Pablo Duarte ~MD~\\[id number]\\ alum & mag hydroxide-simeth icone (MYLANTA) 200-200-20 MG/5ML liquid 30 mL 30~mL Oral QID PRN Pablo Duarte MD~\\[id number]\\ ARIPiprazole (ABILIFY) tablet 5 mg 5 mg Oral Daily Milan Jackson DO 5 mg~at 03/20/18 08~\\[id number]\\ atenolol (TENORMIN) tablet 50 mg 50 mg Oral Daily Pablo Duarte MD 50~mg at 03/20/18 0811~\\[id number]\\ bacitracin-neomy marlena-polymyxin (NEOSPORIN) ointment Topical BID Yehuda, Linsy~L, PRE ALGEBRA TEACHER~\\[id number]\\ busPIRone (BUSPAR) tablet 15 mg 15 mg Oral TID Kabins, Pablo B, MD 15 mg~at 03/20/18 0811~\\[id number]\\ clonazePAM (KLONOPIN) tablet 0.25 mg 0.25 mg Oral Q6H PRN Milan Jackson, DO~0.25 mg at 03/19/18 1710~\\[id number]\\ cloNIDine (CATAPRES) tablet 0.1 mg 0.1 mg Oral BID Kabins, Pablo B, MD 0.1~mg at 03/20/18 0810~\\[id number]\\ famotidine (PEPCID) tablet 20 mg 20 mg Oral BID PRN Kabins, Pablo B, MD~\\[id number]\\ gabapentin (NEURONTIN) capsule 800 mg 800 mg Oral QID Kabins, Pablo B, MD~800 mg at 03/20/18 0810~\\[id number]\\ ibuprofen (ADVIL,MOTRIN) tablet 600 mg 600 mg Oral Q6H PRN Kabins, Pablo B,~MD~\\BP327W1\\ magnesium hydroxide (MILK OF MAGNESIA) 400 MG/5ML suspension 30 mL 30 mL Oral~Daily PRN Kabins, Pablo B, MD~\\JX695S2\\ nicotine (NICODERM CQ) 14 MG/24HR 1 patch 1 patch Transdermal Daily Kabins,~Pablo B, MD 1 patch at 03/20/18 0808~\\[id number]\\ nicotine polacrilex (NICORETTE) gum 2 mg 2 mg Oral Q1H PRN Kabins, Pablo B,~MD~ Or~\\GJ762H9\\ nicotine polacrilex (COMMIT) lozenge 2 mg 2 mg Oral Q1H PRN Kabins, Pablo B,~MD~\\[id number]\\ OLANZapine (ZYPREXA) tablet 10 mg 10 mg Oral BID PRN Kabins, Pablo B, MD~10 mg at 03/20/18 0815~ Or~\\[id number]\\ OLANZapine (ZYPREXA ZYDIS) disintegrating tablet 10 mg 10 mg Oral BID PRN~Kabins, Pablo B, MD~\\[id number]\\ QUEtiapine (SEROQUEL) tablet 300 mg 300 mg Oral Bedtime Milan Jackson DO~300 mg at 03/19/182110~\\EE692Y1\\ sertraline (ZOLOFT) tablet 25 mg 25 mg Oral Daily Christo Blackman L, PRE ALGEBRA TEACHER 25~mg at 03/20/18 0811~\\[id number]\\ traZODone (DESYREL) tablet 100 mg 100 mg Oral Bedtime Leslie Blackmantheodore L, PRE ALGEBRA TEACHER~100 mg at 03/19/182110~~~Assessmen t/Plan:~Patient remains at risk for self harm due to voicing SI, w/ specific plan. Feels~safe in the hospital. The patient required continued hospitalization due to SI~risk and for further evaluation and stabilization of mood, medication dose~adjustment. We will continue to work on stabilization of mood, anxiety and~psychosis. We will also work on trying to build up the patient's ability to~accept support services that will hopefully help with compliance and function~better in the community.~~ 1. Medication change:~Increase Abilify to 7.5mg po qam for bipolar depression start tomorrow~Decreas e Seroquel 300 qhs to 200mg allow for transition to Abilify for less~sedating agent for her bipolar depression~Incre ase klononpin to 0.5mg po q6hr PRN for anxiety as 0.25mg ineffective~Incr ease Trazodone to 200 mg at bedtime for sleep~~Continue~ Zoloft 25 mg daily for anxiety and depression. Increase tomorrow to 50mg~Neosporin BID topically to right knee abrasion.\\XC2A0\\ \\XC2A0\\~Atenolol 50 mg daily for HTN~Buspar 15 mg TID for anxiety~Clonidin e 0.1 mg BID for HTN~Gabapentin 800 mg QID~~ 2. Discussed with the patient the risks, benefits and alternative treatment~option s, noncompliance risks with psychotropics.~ 3. Patient verbalized understanding, agreed with the plan and consented for~treatment.~ 4. Encouraged patient to attend groups and therapeutic activities and meetings~with social workers. Addressed cognitive, behavioral interventions for~depression, anxiety, process of building self-esteem and positive support~system. We worked on the process of developing suicide safety plan.~ 5. The patient was encouraged to work on assignments related to relapse~preventi on, safety plan and coping skills.~ 6. Also discussed black box warnings, potential risks of metabolic syndrome,~EPS, TD and dystonia and possible risks of psychotropics with with the~patient.~~Ra tionale For Continued Stay: Existence of suicidal potential~~Other Information:~~Es timated Length of Stay: 3-5 days~~Direct time spent in counseling, interacting with the patient/family and/or~coordinat ing care: 25 minutes~Total time: 35 minutes~~Greater than 50% total time was spent in counseling and coordination of care.~See note details.~~~Nicole Cervantes RN~Electronic Signature~03/20/20 9:17 AM~~~~~I have personally conducted the face to face interview for evaluation and~assessment of the patient, formulated the psychiatric diagnosis and treatment~plan. The nurse associate acted as a scribe. The above documentation is~reviewed, accurate to my assessment of the patient.~~~Harsh Jackson DO~Electronic Signature~03/20/20 18 3:15 PM~~~ thyroid on 2018-03-19 Thyrotropin Qn 0.778 (no code) 03-19-2018 [facility] 06:40-0400 Healthcare ([id number]) other Ordered By: KEYON RICO on 2018-03-19 Integrated Campaign Manager [facility] (no code) 03-19-2018 no informa tion Authentication Health~1500 16:52-[address] [place] [address] Avenue~[place], [place] [address]~~~Spiritu al Care Note~~Patient Name: Kelly Alexandre : 1975~Refer ring Physician: Deondre Shaffer MD ~Admission Date: 03/17/2018 Room/Bed: 036/036-B~~Admit ting Diagnosis/Princi pal Problem~Suicidal ideation~~Spirit ual Encounter~Reason for visit:~Referral source: Admission Screening~Person visited: Patient~Encounte r type: Routine~Location of encounter: Unit (comment)~Follow -up: Needed (03/19 pt declined. requested try again if available.)~~Rudy e Spent~Time spent in contact with patient: 2~Time spent performing chart review: 3~Time spent with palliative care patient: 0~Total time spent (minutes): 5~~Keyon N Saoirse~Spiritua l Care Provider~Electro nically Signed~03/19/2018 3:52 PM~~ Integrated Campaign Manager [facility] (no code) 03-19-2018 no informa tion Authentication Health~[address] 16:52-[address]~[place], [place] [address]~~~Spiritu al Care Note~~Patient Name: Kelly Alexandre : 1975~Refer [facility] Physician: Deondre Shaffer MD ~Admission Date: 03/17/2018 Room/Bed: [address] [place] [address]~~Admit ting Diagnosis/Princi pal Problem~Suicidal ideation~~Spirit ual Encounter~Reason for visit:~Referral source: Admission Screening~Person visited: Patient~Encounte r type: Routine~Location of encounter: Unit (comment)~Follow -up: Needed (03/19 pt declined. requested try again if available.)~~Rudy e Spent~Time spent in contact with patient: 2~Time spent performing chart review: 3~Time spent with palliative care patient: 0~Total time spent (minutes): 5~~pt declined. requested try again if available~~[place] N Saoirse~Spiritua l Care Provider~Electro nically Signed~03/19/2018 3:52 PM~~ other Ordered By: MILAN JACKSON on 2018-03-19 Integrated Campaign Manager [facility] (no code) 03-19-2018 no informa tion Authentication Health~[address] 16:06-[address]~[place], [place] [address]~~~Psychia try Behavioral Health Assessment~2017~~Patient Name: Kelly Alexandre : 1975~Refer ring Physician: Deondre Shaffer MD ~Admission Date: 03/17/2018~~Chief Complaint:~"I'm afraid to leave"~~Current Status of Presenting Problems: (4 or 3)~The patient was seen and evaluated today for severe depression, severe anxiety~and suicidal ideations. Patient's care resumed and discussed with the treatment~team and EMR chart reviewed. The patient endorses severe depression and anxiety~both 9/10. She reports ruminating about suicide if she leave which she finds~distressin g but is hard not to worry about. States she is concerned that she~will be discharged before she is ready. States sleeping well last night. No~specific suicde plan. Is very tired today. Denies HI/AVH~~Tolerati ng current medications well. Compliant with medications and unit rules.~Interacti ng with the staff and peers appropriately. No episodes of angry~outbursts, agitation, aggressive behavior towards others. No episodes of SIB. No~signs of paranoia, disorganized thoughts or behaviors, jonelle or psychosis.~Patie nt participates in groups and unit activities. Reports active suicidal but~not homicidal ideation, Denies auditory, visual or tactile hallucinations or~delusions. Addressed ways to help build patient's ability to accept support from~others and attempted to explore other supports that could help the patient~function safely outside of the hospital.~~Psych iatric Review Of Systems: ()~As Reported/Observe d~~Sleep Disturbance: no~Appetite changes: no~Mood swings, mood irritability: no~Lack of energy: yes~Somatic Symptoms: no~Anxiety, hopelessness: yes~Perceptual disturbance: no~Other: No EPS, Tardive dyskinesia or dystonia~Side Effects from Medications: fatigue~~Additio nal Review of Systems: CVS: no , Respiratory: no, GI: no and Feels she~may have a UTI and is ok for Abx~~Relevant History: ()~Complian ce: yes~~Vitals Signs:~Visit Vitals~BP 108/71 (BP Location: Left arm, Patient Position: Standing)~Pulse 80~Temp 97.7 \\XC2B0\\F (36.5 \\XC2B0\\C)~Resp 18~Ht 1.702 m (5' 7")~Wt 84.4 kg (186 lb)~SpO2 98%~BMI 29.13 kg/m\\XC2B2\\~~~Ph ysical exam (): No cog wheel rigidity. Normal gait. No abnormal~involun tary movements present. No respiratory distress noted.~~Medical Complaints:~~Men madhu Status Evaluation:~Appe arance: age appropriate, casually dressed, well dressed, well nourished ,~tics or abnormal movements - no, visible physical deformities noted - no, good~grooming hygiene and gait and station normal~Behavior: unremarkable, cooperative and able to make good eye contact~Mood: anxious and depressed~Affect : constricted~Spee ch: appropriate quality, quantity and organization of sentences fluent~rational~ Thought Process: content of thought is appropriate to the topic no unusual~preoccup ations grossly intact~Thought Content: no psychosis~Sensor ium: oriented x3~Cognition: grossly intact and Attention span and concentration: fair~Memory: Able to relate recent and remote events accurately and demonstrates~chacorta quate immediate recall.~Impulse Control: Stable impulse control~Insight: Grossly intact~Judgment: Grossly intact~Suicidal Ideation: No specific plan~Homicidal Ideation: no~Self-Injuriou s Urges: no~~Labs:~Recent Results (from the past 24 hour(s))~TSH (Reflex Free T4 if abnormal)~ Collection Time: 03/19/18 5:40 AM~Result Value Ref Range~ TSH 0.778 0.400 - 4.000 uIU/mL~~~Current Medications:~Cur rent Facility-Adminis tered Medications~Medi cation Dose Route Frequency Provider Last Rate Last Dose~\\[id number]\\ acetaminophen (TYLENOL) tablet 650 mg 650 mg Oral Q6H PRN Pablo Duarte ~MD~\\[id number]\\ alum & mag hydroxide-simeth icone (MYLANTA) 200-200-20 MG/5ML liquid 30 mL 30~mL Oral QID PRN Pablo Duarte MD~\\[id number]\\ [START ON 03/20/2018] ARIPiprazole (ABILIFY) tablet 5 mg 5 mg Oral Daily Vernell Jackson DO~\\[id number]\\ atenolol (TENORMIN) tablet 50 mg 50 mg Oral Daily Pablo Duarte MD 50~mg at 03/19/18 0910~\\[id number]\\ bacitracin-neomy marlena-polymyxin (NEOSPORIN) ointment Topical BID YehudaLesliesy~L, PRE ALGEBRA TEACHER~\\[id number]\\ busPIRone (BUSPAR) tablet 15 mg 15 mg Oral TID Pablo Duarte MD 15 mg~at 03/19/18 1308~\\[id number]\\ clonazePAM (KLONOPIN) tablet 0.25 mg 0.25 mg Oral Q6H PRN Milan Jackson, DO~0.25 mg at 03/19/18 1043~\\[id number]\\ cloNIDine (CATAPRES) tablet 0.1 mg 0.1 mg Oral BID Pablo Duarte MD 0.1~mg at 03/19/18 0909~\\[id number]\\ famotidine (PEPCID) tablet 20 mg 20 mg Oral BID PRN Pablo Duarte MD~\\[id number]\\ fosfomycin (MONUROL) packet 3 g 3 g Oral Once Milan Jackson, DO~\\[id number]\\ gabapentin (NEURONTIN) capsule 800 mg 800 mg Oral QID Pablo Duarte MD~800 mg at 03/19/18 1308~\\[id number]\\ ibuprofen (ADVIL,MOTRIN) tablet 600 mg 600 mg Oral Q6H PRN Pablo Duarte,~MD~\\[id number]\\ magnesium hydroxide (MILK OF MAGNESIA) 400 MG/5ML suspension 30 mL 30 mL Oral~Daily PRN Pablo Duarte MD~\\[id number]\\ nicotine (NICODERM CQ) 14 MG/24HR 1 patch 1 patch Transdermal Daily Gerald~Pablo Nava MD Stopped at 03/18/18 0900~\\[id number]\\ nicotine polacrilex (NICORETTE) gum 2 mg 2 mg Oral Q1H PRN Ron Duartel Elijah,~MD~ Or~\\[id number]\\ nicotine polacrilex (COMMIT) lozenge 2 mg 2 mg Oral Q1H PRN Kabins, Pablo B,~MD~\\[id number]\\ OLANZapine (ZYPREXA) tablet 10 mg 10 mg Oral BID PRN Swathimili Pablo B, MD~10 mg at 03/18/18 1148~ Or~\\[id number]\\ OLANZapine (ZYPREXA ZYDIS) disintegrating tablet 10 mg 10 mg Oral BID PRN~SwathisWagnerPablo B, MD~\\[id number]\\ QUEtiapine (SEROQUEL) tablet 300 mg 300 mg Oral Bedtime Milan Jackson, DO~\\[id number]\\ sertraline (ZOLOFT) tablet 25 mg 25 mg Oral Daily Roosevelt, Linsy L, PRE ALGEBRA TEACHER 25~mg at 03/19/18 0910~\\[id number]\\ traZODone (DESYREL) tablet 100 mg 100 mg Oral Bedtime Roosevelt, Linsy L, PRE ALGEBRA TEACHER~100 mg at 03/18/18 2148~~~Assessmen t/Plan:~Blas alvarado Diagnosis: Bipolar II Disorder, Current or Most recent episode~depresse d~\\XC2A0\\~Second eva Diagnoses:~Gener alized Anxiety Disorder~\\XC2A0\\ ~Additional: H/O Cannabis-Related Disorder - Cannabis Use Disorder~Opioid- Related Disorder - Opioid use Disorder~Sedativ e, Hypnotic, or Anxiolytic Related Disorder - Sedative, Hypnotic, or~Anxiolytic Use Disorder~\\XC2A0\\ ~Additional: GERD, HTN, HLD, History of seizures with withdrawal from substances~and history of pseudoseizures.~ ~Patient remains at risk for self harm due to voicing SI,w/o specific plan. Feels~safe in the hospital. The patient required continued hospitalization due to SI~risk and for further evaluation and stabilization of mood, medication dose~adjustment. We will continue to work on stabilization of mood, anxiety and~psychosis. We will also work on trying to build up the patient's ability to~accept support services that will hopefully help with compliance and function~better in the community.~~ 1. Medication change:~Add Abilify 5mg po qam for bipolar depression start tomorrow~Switch Seroquel 300 mg BID to qhs to allow for transition to Abilify for less~sedating agent fr her bipolar depression~One time dose of Monurol 3g po for empiric treatment of UTI per positive UA~Add klononpin 0.25mg po q6hr PRN for anxiety as other non BDZ options not~tolerated or ineffective~~Con tinue~Zoloft 25 mg daily for anxiety and depression. Increase tomorrow to 50mg~Neosporin BID topically to right knee abrasion.~Atenol ol 50 mg daily for HTN~Buspar 15 mg TID for anxiety~Clonidin e 0.1 mg BID for HTN~Gabapentin 800 mg QID~Trazodone 100 mg at bedtime for sleep, may repeat dose in 1 hour prn sleep.~~ 2. Discussed with the patient the risks, benefits and alternative treatment~option s, noncompliance risks with psychotropics.~ 3. Patient verbalized understanding, agreed with the plan and consented for~treatment.~ 4. Encouraged patient to attend groups and therapeutic activities and meetings~with social workers. Addressed cognitive, behavioral interventions for~depression, anxiety, process of building self-esteem and positive support~system. We worked on the process of developing suicide safety plan.~ 5. The patient was encouraged to work on assignments related to relapse~preventi on, safety plan and coping skills.~ 6. Also discussed black box warnings, potential risks of metabolic syndrome,~EPS, TD and dystonia, possible risks of psychotropics with and~substance use: risk of alcohol use, risk of street drug use with the patient.~~Ration analisa For Continued Stay: Existence of suicidal potential~~Other Information:NONE ~~Estimated Length of Stay: 3-5 days~~Direct time spent in counseling, interacting with the patient/family and/or~coordinat ing care: 25 minutes~Total time: 35 minutes~~Greater than 50% total time was spent in counseling and coordination of care.~See note details.~~~Harsh Jackson DO~Electronic Signature~ 018 3:06 PM~~~~~~~ Integrated Campaign Manager [facility] (no code) 03-19-2018 no informa tion Authentication Health~[address]~[place], [place] [address]~~~Psychia try Behavioral Health Assessment~2017~~Patient Name: Kelly Alexandre : 1975~Refer ring Physician: Deondre Shaffer MD ~Admission Date: 03/17/2018~~Chief Complaint:~"I'm afraid to leave"~~Current Status of Presenting Problems: (4 or 3)~The patient was seen and evaluated today for severe depression, severe anxiety~and suicidal ideations. Patient's care resumed and discussed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 with the patient risks, benefits of the medications and therapy,~alterna tive treatment options. Discussed off label use(s) where indicated.~Discu ssed risks of polypharmacy, non-compliance. Patient verbalized understand,~agre ed with the plan and consented for treatment.~~ 4. Routine follow-up with primary care physician. Encouraged to do routine~physical exercise, healthy diet.~~ 5. Patient education provided. Treatment plan reviewed with the patient and the~patient consented.~~ 6. Reviewed safety plan and behavioral interventions.~~ 7. Discussed ways to improve coping skills, stress management and relaxation~techn iques.~~ 8. Also discussed black box warnings, potential risks of metabolic syndrome,~EPS, TD and dystonia, possible risks of psychotropics with , substance~use: risk of alcohol use, risk of street drug use, smoking cessation, counseled~to stop/avoid smoking cigarettes and counseled to stop/avoid using drugs and~drinking alcohol with the patient.~~Psych: Supportive Milieu~ Psycho-education provided. Behavioral therapy, individual, group, milieu~therapies and family therapy recommended. Medication managements, safety plan~development , support system identification, after care planning.~ Encouraged to participate in group and unit activities. Addressed cognitive,~behav ioral interventions for depression, anxiety, process of building~self-es teem and positive support system. We will work on the process of~developing suicide safety plan.~~Social: Liaison with family, support system and outpatient treators~~Treatm ent options, alternative, black box warning(s), and off label use(s) were~reviewed with the patient where indicated and patient concurred with the above~plan.~~Est imated length of stay: 3-5 days~~Direct spent in counseling with patient or coordinating care: 60 minutes~Total time: 85 minutes~~Greater than 50% of the total time was spent in counseling and coordination of~care. See note for details.~~Christo Blackman APRN~Electronic Signature~ 018 12:35 PM~~~~~~Patient personally seen and interviewed. I agree with assessment and plan by Genet LEON . Patient admitted for bipolar depression with 2 recent overdose~attmept s Pt reports worsening mood and anxiety with increasing SI over recent~month triggered by her going to [facility]. Has an hx of reported depression~with worsening over the past 1-2 months along with worsening SI. Reports~possible manic spells in the remote past but gives unclear recollection.Dejan alvarado add~zoloft to Seroquel for her mood and continue Seroquel as it is at therapeutic~dose .~~Assessment:~P rincipal Diagnosis: Bipolar II Disorder, Current or Most recent episode~depresse d~~Secondary Diagnoses:~Gener alized Anxiety Disorder~~Additi onal: H/O Cannabis-Related Disorder - Cannabis Use Disorder~Opioid- Related Disorder - Opioid use Disorder~Sedativ e, Hypnotic, or Anxiolytic Related Disorder - Sedative, Hypnotic, or~Anxiolytic Use Disorder~~Additi onal: GERD, HTN, HLD, History of seizures with withdrawal from substances~and history of pseudoseizures~\\ XC2A0\\~Plan:~Dis cussed with the patient in detail about the options with antidepressants, ~SSRI's, mood stabilizers and anxiolytics . Reviewed with the patient the~potential benefits and risks of dose adjustment of the medications.~~Th e patient agreed to medication changes as follows:~-Change s as listed above~~2. Lab review done at ED unremarkable except UC to be completed to to LE in~urine. TSH and UAIF~\\XC2A0\\~3. Discussed with the patient risks, benefits of the medications and therapy,~alterna tive treatment options. Discussed off label use(s) where indicated.~Discu ssed risks of polypharmacy, non-compliance.~ Patient verbalized understand, agreed with the plan and consented for treatment.~~~Johanne Jackson DO~Electronic Signature~ 018 10:19 PM~~ other on 2018-03-18 Amikacin susc <= (S) 03-18-2018 no informati on Amoxicillin + 16 (I) 03-18-2018 no informati on Clavulanate 08: Ampicillin susc >= (R) 03-18-2018 no informa tion Ampicillin+Sulba 16 (I) 03-18-2018 no inform ation ctam susc 08:05-0400 Aztreonam <= (S) 03-18-2018 no information 08:05-0400 Cefazolin susc <= (S) 03-18-2018 no informat ion 08:05-0400 Cefepime susc <= (S) 03-18-2018 no informati on 08:05-0400 Ceftriaxone susc <= (S) 03-18-2018 no inform ation 08:05-0400 Ciprofloxacin <= (S) 03-18-2018 no informati on susc 08:05-0400 Ertapenem <= (S) 03-18-2018 no information 08:05-0400 Gentamicin <= (S) 03-18-2018 no information 08:05-0400 Levofloxacin <= (S) 03-18-2018 no informatio n susc 08:05-0400 Meropenem susc <= (S) 03-18-2018 no informat ion 08:05-0400 Nitrofurantoin 64 (I) 03-18-2018 no informat ion susc 08:05-0400 Piperacillin + 8 (S) 03-18-2018 no informat ion Tazobactam 08:05-0400 Tetracycline 2 (S) 03-18-2018 no informatio n susc 08:05-0400 Trimethoprim+Sul >= (R) 03-18-2018 no inform ation famethoxazole 08:05-0400 susc other on 2017-06-11 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 (no code) 06-11-2017 Not Available observation 17:44-0400 ([id number]) Other stain Nom (Unsp spec) Note: Comment (no code) 06-11-2017 Not Available 17:44-0400 ([id number]) Statement of Comment (no code) 06-11-2017 Not Available adequacy Cyto 17:44-0400 ([id number]) stain (Cvx/Vag) [Interp] no information Comment (no code) 06-11-2017 Not Availab le 17:44-0400 ([id number]) imm/path on 2017-06-11 Pathology report Comment (no code) 06-11-2017 Not Avail able final diagnosis 17:44-0400 ([id number]) Narrative imm/path on 2017-06-09 Bacteria Note (no code) 06-09-2017 Not Available identified Aer 14:37-0400 ([id number]) cx Nom (Genital specimen) Vital Signs Vital Sign Value Interpretation Reference Date Time Care Prov ider Facility (Normalized) (Normalized) Range BMI (Body Mass 31.79 kg/m2 (no code) 15 - 25 kg/m2 02-03-2019 RRY OLD [facility] Index) 09:40-0400 [id number] [facility] [place] [facility] ([id number]) BMI (Body Mass 31.16 kg/m2 (no code) 15 - 25 kg/m2 01-08-2019 RRY OLD [facility] Index) 14:40-0400 [id number] [facility] [place] [facility] ([id number]) BMI (Body Mass 32.73 kg/m2 (no code) 15 - 25 kg/m2 09-16-2018 [facility] Index) 12:20-0500 [id number] [facility] [place] [facility] ([id number]) BMI (Body Mass 30.54 kg/m2 (no code) 15 - 25 kg/m2 07-24-2018 RRY OLD [facility] Index) 14:20-0400 [id number] [facility] [place] [facility] ([id number]) BMI (Body Mass 30.38 kg/m2 (no code) 15 - 25 kg/m2 07-01-2018 RRY OLD [facility] Index) 14:20-0400 [id number] [facility] [place] [facility] ([id number]) BMI (Body Mass 30.38 kg/m2 (no code) 15 - 25 kg/m2 06-19-2018 RRY OLD [facility] Index) 15:00-0400 [id number] [facility] [place] [facility] ([id number]) BMI (Body Mass 29.88 kg/m2 (no code) 15 - 25 kg/m2 04-03-2018 Elizabeth SHAFFER [facility] Index) 10:00-0400 [id number] [facility] ([id number]) Body height 170.18 cm (no code) cm 11-08-2013 DEONDRE RYAN [facility] 08:51-0500 [id number] [facility] ([id number]) Body height 170.18 cm (no code) cm 11-02-2013 DEONDRE RYAN [facility] 15:55-0500 [id number] [facility] ([id number]) Body (no code) 02-03-2019 [facility] Temperature 09:40-0400 [id number] [facility] [place] [facility] ([id number]) Body (no code) [facility] 14:[facility]0400 [id number] [facility] [place] [facility] (23584) Body 0 [degF] (no code) 97.8 - 99.0 09-16-2018 [facility] Temperature [degF] 12:20-0500 [id number] [facility] [place] [facility] (28049) Body 97.4 [degF] (no code) 97.8 - 99.0 07-24-2018 [facility] Temperature [degF] 14:20-0400 [id number] [facility] [place] [facility] (22221) Body 0 [degF] (no code) 97.8 - 99.0 07-01-2018 [facility]ANTH OLD [facility] Temperature [degF] 14:20-0400 [id number] [facility] [place] [facility] ([id number]) Body 97.6 [degF] (no code) 97.8 - 99.0 06-19-2018 [facility] Temperature [degF] 15:00-0400 [id number] [facility] [place] [facility] ([id number]) Body 98.4 [degF] (no code) 97.8 - 99.0 04-03-2018 [facility] Temperature [degF] 10:00-0400 [id number] [facility] (31957) Body 97.3 [degF] (no code) 97.8 - 99.0 06-09-2014 [facility] Temperature [degF] 17:48-0400 [id number] [facility] ([id number]) Body 98.6 [degF] (no code) 97.8 - 99.0 11-08-2013 [facility] temperature [degF] 08:51-0500 [id number] [facility] (24860) Body 96.6 [degF] (no code) 97.8 - 99.0 11-02-2013 [facility] temperature [degF] 15:55-0500 [id number] [facility] (06157) Body weight 92.08 kg (no code) kg 02-03-2019 [facility]TH [facility]LD [facility] 09:40-0400 [id number] [facility] [place] [facility] (40150) Body weight 90.27 kg (no code) kg 01-08-2019 [facility]TH [facility]LD [facility] 14:40-0400 [id number] [facility] [place] [facility] (87351) Body weight 79.97 kg (no code) kg 06-09-2014 [facility] 17:48-0400 33539 [facility] (88874) Body weight 81.19 kg (no code) kg 11-08-2013 [facility] 08:51-[address] [place] [address] ([id number]) Body weight 80.56 kg (no code) kg 11-02-2013 [facility] 15:55-[id number] [place] [address] ([id number]) Blood Pressure 150/ (no code) Systolic: 02-03-2019 LOUANNR Y OLD [facility] 99mm[Hg] 120 mm[Hg] 09:40-0400 [id number] [facility] Diastolic: [address] [place] [address] ([id number]) - 80 mm[Hg] Blood Pressure 156/ (no code) Systolic: 01-08-2019 LOUANNR Y OLD [facility] 101mm[Hg] 120 mm[Hg] 14:40-0400 [id number] [facility] [place] Diastolic: 60 [facility] ([id number]) - 80 mm[Hg] Blood Pressure 113/ (no code) Systolic: 09-16-2018 LOUANNR Y OLD [facility] 70mm[Hg] 120 mm[Hg] 12:20-0500 [id number] [facility] [place] Diastolic: 60 [facility] (96508) - 80 mm[Hg] Blood Pressure 121/ (no code) Systolic: 07-24-2018 [facility]ANNR Y OLD [facility] 80mm[Hg] 120 mm[Hg] 14:20-0400 [id number] [facility] [place] Diastolic: [address] [place] [address] ([id number]) - 80 mm[Hg] Blood Pressure 123/ (no code) Systolic: 90 - 07-01-2018 JERR Y OLD [facility] 82mm[Hg] 120 mm[Hg] 14:200400 [id number] [facility] [place] Diastolic: 60 [facility] (30631) - 80 mm[Hg] Blood Pressure 111/ (no code) Systolic: 90 - 06-19-2018 JERR Y OLD [facility] 76mm[Hg] 120 mm[Hg] 15:000400 [id number] [facility] [place] Diastolic: [address] [place] [address] (62557) - 80 mm[Hg] Height (no code) 02-03-2019 SUMANTH OLD [facility] 09:40-0400 [id number] [facility] [place] [facility] (35341) Height (no code) 01-08-2019 SUMANTH OLD [facility] 14:40-0400 [id number] [facility] [place] [facility] (55410) Height (no code) 09-16-2018 SUMANTH OLD [facility] 12:20-0500 [id number] [facility] [place] [facility] (09054) Height (no code) 07-24-2018 SUMANTH OLD [facility] 14:20-0400 [id number] [facility] [place] [facility] (77428) Height (no code) 07-01-2018 SUMANTH OLD [facility] 14:20-0400 [id number] [facility] [place] [facility] (40786) Height (no code) 06-19-2018 SUMANTH OLD [facility] 15:00-0400 [id number] [facility] [place] [facility] (13475) Height 170.18 cm (no code) cm 04-03-2018 [facility] 10:00-0400 35915 [facility] (93329) Height 170.18 cm (no code) cm 06-09-2014 [facility] 17:48-0400 [id number] [facility] (23776) Height 066 (no code) [place] Not Available ([id number]) Pulse (Heart 112 /min (no code) 60 - 100 /min 02-03-2019 SUMANTH O LD [facility] Rate) 09:40-0400 [id number] [facility] [place] [facility] (88853) Pulse (Heart 138 /min (no code) 60 - 100 /min 01-08-2019 SUMANTH O LD [facility] Rate) 14:40-0400 [id number] [facility] [place] [facility] (59977) Pulse (Heart 80 /min (no code) 60 - 100 /min 09-16-2018 SUMANTH O LD [facility] Rate) 12:20-0500 [id number] [facility] [place] [facility] (68532) Pulse (Heart 80 /min (no code) 60 - 100 /min 07-24-2018 SUMANTH O LD [facility] Rate) 14:20-0400 [id number] [facility] [place] [facility] ([id number]) Pulse (Heart 78 /min (no code) 60 - 100 /min 07-01-2018 SUMANTH O LD [facility] Rate) 14:20-0400 [id number] [facility] [place] [facility] (52104) Pulse (Heart 84 /min (no code) 60 - 100 /min 06-19-2018 SUMANTH O LD [facility] Rate) 15:00-0400 [id number] [facility] [place] [facility] (41651) Pulse Oximetry 96 % (no code) 95 - 100 % 02-03-2019 SUMANTH OL D [facility] 09:40-0400 [id number] [facility] [place] [facility] (55160) Pulse Oximetry 96 % (no code) 95 - 100 % 01-08-2019 SUMANTH OL D [facility] 14:40-0400 [id number] [facility] [place] [facility] (13225) Pulse Oximetry 96 % (no code) 95 - 100 % 09-16-2018 SUMANTH OL D [facility] 12:20-0500 [id number] [facility] [place] [facility] (12839) Pulse Oximetry 96 % (no code) 95 - 100 % 07-24-2018 [facility]ANTH OL D [facility] 14:20-0400 [id number] [facility] [place] [facility] (57023) Pulse Oximetry 97 % (no code) 95 - 100 % 07-01-2018 SUMANTH OL D [facility] 14:20-0400 [id number] [facility] [place] [facility] (48500) Pulse Oximetry 96 % (no code) 95 - 100 % 06-19-2018 SUMANTH OL D [facility] 15:00-0400 [id number] [facility] [place] [facility] (12711) Weight 94.8 kg (no code) kg 09-16-2018 SUMANTH OLD [facility] 12:20-0500 [id number] [facility] [place] [facility] ([id number]) Weight 88.45 kg (no code) kg 07-24-2018 SUMANTH OLD [facility] 14:20-0400 [id number] [facility] [place] [facility] (51072) Weight 88 kg (no code) kg 07-01-2018 SUMANTH OLD [facility] 14:20-0400 [id number] [facility] [place] [facility] (39640) Weight 88 kg (no code) kg 06-19-2018 SUMANTH OLD [facility] 15:00-0400 [id number] [facility] [place] [facility] (67242) Weight 86.55 kg (no code) kg 04-03-2018 DEONDRE [facility] 10:00-0400 [id number] [facility] (61597) Weight 170.00 (no code) [place] Not Available ([id number]) Interventions No Information Plan of Treatment Normalized Care Care Detail Care Activity Date Care Provider F acility Activity (Recheck) Recheck [facility] 09-16-2018 SUMANTH DON [id number] [facility] ([id number]) Care management [facility] 02-10-2019 SOFIA [facility] In [address] ([address]) Care management [facility] 02-23-2019 SUMANTH DON [id number] [facility] (12789) Care management [facility] 03-09-2019 SUMANTH DON [id number] [facility] (29723) Established patient [facility] 02-03-2019 SUMANTH FLORENCIA 6715 31101 [facility] [facility] ([id number]) no information no information no information SUMANTH DON [id number] [facility] in [facility] ([id number]) Goals No Information Social History The data below is from unstructured sources History Response Recorde d Date/Time Hx Family Cancer Y URSULA YUSUF 10/03/09 5:16pm History Response Recorde d Date/Time Alcohol Use Denies Use 0 02/23/13 11:15pm Recreational Drug Use Y 02/23/13 11:15pm Recent Foreign Travel N 02/23/13 11:15pm Recent Infectious Disease Exposure N 02/23/13 11:15pm Hospitalization with Isolation Unknown 02/23/13 11:15pm Functional Status No Information Mental Status No Information Encounters Encounter Normalized Encounter Encounter Diagnosis Care Provi neda Organization Date Type 07-24-2018 (1 Mo Check) 1 Month Shortness of breath [facility]ANTH DON (no phone) [facility] (no phone) 07-17-2018 (1 Mo Check) 1 Month no information SUMANTH OLD (no p norma) [facility] Check [facility] (no phone) 04-20-2019 (PRSUP-IN) Peer no information DOROTHY WALSH (no phone ) [facility] support intake (no phone) 09-16-2018 (Recheck) Recheck Essential (primary) SUMANTH DON (no phone) [facility] hypertension Center In [facility] (no phone) 04-20-2019 (SOCWK-IN) Social Work no information DOROTHY WALSH (n o phone) [facility] Intake (no phone) 05-08-2018 [facility] no information DEONDRE SHAFFER (no [facility] - phone) (no phone) 05-08-2018 - 05-08-2018 05-04-2018 [facility] Major depressive DEONDRE Davies (no [facility] - disorder, recurrent, phone) (no phone ) 05-04-2018 moderate - 05-04-2018 06-10-2019 Emergency department no information no name no organization name - patient visit 06-10-2019 06-10-2019 Emergency department no information no name no organization name patient visit [facility] Emergency department no information no name no organization name 05-08-2018 patient visit - 05-08-2018 04-16-2018 Emergency department no information no name no organization name - patient visit 04-16-2018 04-16-2018 Emergency department no information no name no organization name - patient visit 04-16-2018 03-16-2018 Emergency department no information no name no organization name patient visit 09-08-2016 Emergency department no information no name no organization name - patient visit 09-08-2016 09-08-2016 Emergency department no information no name no organization name - patient visit 09-08-2016 04-21-2016 Emergency department no information no name no organization name - patient visit 04-21-2016 04-21-2016 Emergency department no information no name no organization name - patient visit 04-21-2016 02-28-2016 Emergency department no information no name no organization name - patient visit 02-28-2016 11-23-2015 Emergency department no information no name no organization name - patient visit 11-23-2015 11-21-2015 Emergency department no information no name no organization name - patient visit 11-21-2015 04-18-2015 Emergency department no information no name no organization name - patient visit 04-18-2015 10-21-2014 Emergency department no information no name no organization name - patient visit 10-21-2014 03-05-2014 Emergency department no information no name no organization name - patient visit 03-05-2014 02-16-2014 Emergency department no information no name no organization name - patient visit 02-16-2014 02-13-2014 Emergency department no information no name no organization name - patient visit 02-13-2014 02-13-2014 Emergency department no information no name no organization name - patient visit 02-13-2014 01-06-2014 Emergency department no information no name no organization name - patient visit 01-06-2014 12-22-2013 Emergency department no information no name no organization name - patient visit 12-22-2013 09-01-2013 Emergency department no information no name no organization name - patient visit 09-01-2013 02-03-2019 Established patient Opioid dependence with SUMANTH OL D (no phone) [facility] withdrawal Center In [facility] (no phone) 01-08-2019 Established patient Other psychoactive SUMANTH OLD (n o phone) [facility] substance abuse, Center In [facility] (no phone) 12-17-2018 Established patient Arthropathic SUMANTH OLD (no phon e) [facility] psoriasis, unspecified Center In [facility] (no phone) 07-01-2018 Established patient Psoriasis, unspecified SUMANTH OL D (no phone) [facility] Center In [facility] (no phone) 06-24-2018 Established patient no information SUMANTH OLD (no ph one) [facility] (no phone) [facility] Evaluation and no information no name no organ ization name 03-17-2018 management of - inpatient 03-23-2018 03-16-2018 Evaluation and no information no name no organ ization name - management of 03-17-2018 inpatient 11-03-2014 Evaluation and no information no name no organ ization name - management of 11-04-2014 inpatient 05-07-2014 Evaluation and no information no name no organ ization name - management of 05-11-2014 inpatient 02-07-2014 Evaluation and no information no name no organ ization name - management of 02-09-2014 inpatient 01-01-2014 Evaluation and no information no name no organ ization name - management of 01-03-2014 inpatient 06-19-2018 New patient Generalized edema SUMANTH OLD (no phone) [facility] (no phone) [facility] Patient encounter no information no name no or ganization name 06-19-2018 - 06-19-2018 04-16-2018 Patient encounter no information no name no or ganization name 04-03-2018 Patient encounter no information no name no or ganization name 04-02-2018 Patient encounter no information no name no or ganization name 03-16-2018 Patient encounter no information no name no or ganization name - 03-17-2018 Patient encounter no information no name no organizat ion name 02-08-2020 Patient encounter no information DEONDRE SHAFFER (n o [facility] procedure phone) [facility] (no phone) 01-25-2020 Patient encounter no information (no phone) [facility] procedure [facility] (no phone) 10-27-2019 Patient encounter no information no name no or ganization name procedure 10-19-2019 Patient encounter no information no name no or ganization name procedure 09-22-2019 Patient encounter no information no name no or ganization name procedure 08-19-2019 Patient encounter no information no name no or ganization name procedure 08-05-2019 Patient encounter no information no name no or ganization name procedure 07-30-2019 Patient encounter no information no name no or ganization name procedure 07-07-2019 Patient encounter no information no name no or ganization name procedure 07-07-2019 Patient encounter no information no name no or ganization name procedure 07-05-2019 Patient encounter no information no name no or ganization name procedure 07-05-2019 Patient encounter no information no name no or ganization name procedure 06-10-2019 Patient encounter no information no name no or ganization name procedure 05-24-2019 Patient encounter no information no name no or ganization name procedure 03-09-2019 Patient encounter no information no name no or ganization name procedure 03-09-2019 Patient encounter no information no name no or ganization name procedure 02-10-2019 Patient encounter no information no name no or ganization name procedure 02-03-2019 Patient encounter no information no name no or ganization name procedure 01-08-2019 Patient encounter no information no name no or ganization name procedure 12-17-2018 Patient encounter no information no name no or ganization name procedure 09-16-2018 Patient encounter no information no name no or ganization name procedure 09-08-2018 Patient encounter no information no name no or ganization name - procedure 09-08-2018 09-02-2018 Patient encounter Generalized edema SUMANTH OLD (no p norma) [facility] - procedure Center In [place] 09-02-2018 [facility] (no phone) 02-22-2019 Telephone encounter Opioid dependence with SUMANTH OL D (no phone) [facility] withdrawal [facility] In [facility] (no phone) 02-10-2019 Telephone encounter Opioid dependence with SUMANTH OL D (no phone) [facility] withdrawal [facility] In [facility] (no phone) 01-29-2019 Telephone encounter no information SUMANTH OLD (no ph one) [facility] (no phone) 01-06-2019 Telephone encounter no information SUMANTH OLD (no ph one) [facility] (no phone) 01-01-2019 Telephone encounter Arthropathic SUMANTH OLD (no phon e) [facility] psoriasis, unspecified Center In [facility] (no phone) 12-21-2018 Telephone encounter no information SUMANTH OLD (no ph one) [facility] (no phone) 11-30-2018 Telephone encounter Edema, unspecified SUMANTH OLD (n o phone) [facility] (no phone) 11-06-2018 Telephone encounter Arthropathic SUMANTH OLD (no phon e) [facility] psoriasis, unspecified [facility] In [facility] (no phone) 10-28-2018 Telephone encounter Arthropathic SUMANTH OLD (no phon e) [facility] psoriasis, unspecified Center In [facility] (no phone) 09-02-2018 Telephone encounter no information SUMANTH OLD (no ph one) [facility] In [facility] (no phone) 08-13-2018 Telephone encounter no information SUMANTH OLD (no ph one) [facility] (no phone) 08-05-2018 Telephone encounter no information SUMANTH OLD (no ph one) [facility] In [facility] (no phone) 07-29-2018 Telephone encounter Generalized edema SUMANTH OLD (no phone) [facility] (no phone) 07-28-2018 Telephone encounter Generalized edema SUMANTH OLD (no phone) [facility] In [facility] (no phone) 07-10-2018 Telephone encounter Generalized edema SUMANTH OLD (no phone) [facility] (no phone) 06-23-2018 Telephone encounter no information SUMANTH OLD (no ph one) [facility] (no phone) Medical Equipment No Information Payers Normalized Payer Value Medicaid [id number] Summary Purpose eClinicalWorks SubmissioneClinicalWorks SubmissioneClinicalWorks SubmissioneClinicalWorks SubmissioneClinicalWorks SubmissioneClinicalWorks SubmissioneClinicalWorks SubmissioneClinicalWorks SubmissioneClinicalWorks SubmissioneClinicalWorks SubmissioneClinicalWorks SubmissioneClinicalWorks SubmissioneClinicalWorks SubmissioneClinicalWorks SubmissioneClinicalWorks SubmissioneClinicalWorks SubmissioneClinicalWorks SubmissioneClinicalWorks Submission Advance Directives Directive Response Recor ded Date Advance Directives N 05/01 11:15pm Organ Donor Y 02/23/13 1 1:15pm Additional Source Comments This clinical document has been generated using [employer] software that has been certified by the Office of the National Coordinator for Health Information Technology (ONC 15.99.04.3023.Diam.[id number]) and the National Committee for Agile Business Analyst (NCQA, as an eMeasure certified technology). FOR RECORDS PERTAINING TO PATIENTS WHO ARE OR HAVE BEEN ENROLLED IN A CHEMICAL D EPENDENCY/SUBSTANCE ABUSE PROGRAM, SOME INFORMATION MAY BE OMITTED. This clinica l summary was aggregated from multiple sources. Caution should be exercised in using it in the provision of clinical care. This summary normalizes information from multiple sources, and as a consequence, information in this document may ma terially change the coding, format and clinical context of patient data. In felicia tion, data may be omitted in some cases. CLINICAL DECISIONS SHOULD BE BASED ON T HE PRIMARY CLINICAL RECORDS. [employer] provides no warranty or guara ntee of the accuracy or completeness of information in this document.The followi ng information is based on time limited clinical information UNRECOGNIZED CONTENT PROVIDED BELOW FOR UNRECOGNIZED SECTION MEDICAL (GENERAL) HISTORY Type Description Date Medical History migraine headaches Medical History Unspecified backache Surgical History Hysterectomy 2003 Surgical History Bladder surgeries x 3 Hospitalization History Pneumonia 2014 Hospitalization History kidney stones 2013 Type Description Date Medical History migraine headaches Medical History Unspecified backache Surgical History Hysterectomy 2003 Surgical History Bladder surgeries x 3 Hospitalization History Pneumonia 2014 Hospitalization History kidney stones 2014 Hospitalization History Suicidal jonathon ation/int[facility] overdose[facility] 03/16/18 Type Description Date Medical History migraine headaches Medical History Unspecified backache Surgical History Hysterectomy 2003 Surgical History Bladder surgeries x 3 Hospitalization History Pneumonia 2014 Hospitalization History kidney stones 2013 Hospitalization History Suicidal jonathon ation/intentional overdose[facility] 03/16/18 Hospitalization History Behavorial h ospitalization [facility] 03/2018 Type Description Date Medical History Deterioration bladder Medical History Htn Medical History Bipolar Medical History PTSD Medical History Fibromyalgia Medical History Opioids addiction Medical History Psoriasis Surgical History Bladder surgery 10/2003 Surgical History Hysterectomy 10/2001 Hospitalization History No know Hosp italization history Type Description Date Medical History Deterioration bladder Medical History Htn Medical History Bipolar Medical History PTSD Medical History Fibromyalgia Medical History Opioids addiction Medical History Psoriasis Surgical History Bladder surgery 10/2003 Surgical History Hysterectomy 10/2001 Hospitalization History Surgery Type Description Date Medical History Deterioration bladder Medical History Htn Medical History Bipolar Medical History PTSD Medical History Fibromyalgia Medical History Opioids addiction Medical History Psoriasis Medical History Arthritis Surgical History Bladder surgery 10/2003 Surgical History Hysterectomy 10/2001 Hospitalization History Surgery UNRECOGNIZED CONTENT PROVIDED BELOW FOR UNRECOGNIZED SECTION REASON FOR VISIT stolen medsBH intakePFH bilateral low ext edemaFYI only15 day supply of Gabapent inrequest med changepsoriasis flair up and needing thyroid checked possiblyMedic ation refill requestMed refill1 month f/umed clarificationMAR correctedMed refil lX-Ray2 week recheckdiscuss medsmed msbsdoIDN-GykIMH-AbkSIG-Miganxiety is bad an d she is unable to leave her house when she feels like egrpBUE-LnmCMC-Pzjauztcr AtivanEMR-Migupdate BHC & PCP-Ativan change/kukjzsguACC-EwoPJD-Ntkotuaz refills on meds
--- OUTSIDE RECORDS SUMMARY | 2020-02-24 12:19 | XMS REPORT | Clinical Summary ---
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 Found in [facility] documentation Morphine And Related Hives Low 8 Medications End Date Status Medication Sig Dispensed Refills Start Date Active busPIRone (BUSPAR) 30 MG Take 1 tablet 30 tablet 0 tabletIndications: (30 mg total) 8 Anxiety Disorder by mouth 2 (two) times daily. Active diazePAM (VALIUM) 10 MG Take 1 tablet 30 tablet 0 tabletIndications: (10 mg total) 8 Anxiety by mouth 2 (two) times daily as needed for Anxiety. Indications: Feeling Anxious Do not exceed a daily dose of 20 mg Active sertraline (ZOLOFT) 100 Take 1 tablet 15 tablet 0 03/24/201 MG tabletIndications: (100 mg 8 Bipolar II disorder (HCC) total) by mouth daily. Active traZODone (DESYREL) 100 Take 2 30 tablet 0 201 MG tabletIndications: tablets (200 8 Insomnia mg total) by mouth at bedtime. Indications: Trouble Sleeping Active cloNIDine (CATAPRES) 0.1 Take 1 tablet 30 tablet 0 03/23/201 MG tabletIndications: (0.1 mg 8 anxiety total) by mouth 2 (two) times daily. Active QUEtiapine (SEROQUEL) 300 Take 1 tablet 15 tablet 0 03/23/201 MG tabletIndications: (300 mg 8 Depressive Phase Bipolar total) by Mood Disorder mouth at bedtime. Active atenolol (TENORMIN) 50 MG Take 1 tablet 15 tablet 0 tabletIndications: (50 mg total) 8 Hypertension by mouth daily. Active melatonin 1 MG TABS Take 1 tablet 15 tablet 0 tabletIndications: (1 mg total) 8 Insomnia by mouth at bedtime for trouble sleeping Active famotidine (PEPCID) 20 MG Take 1 tablet 15 tablet 0 tabletIndications: (20 mg total) 8 Gastroesophageal Reflux by mouth 2 Disease (two) times daily as needed (takes for heartburn/GABBY D). Active gabapentin (NEURONTIN) Take 2 60 capsule 0 400 MG capsules (800 8 capsuleIndications: mg total) by anxiety mouth 4 (four) times daily. Active Problems Problem Noted Date NAM (generalized anxiety disorder) 03/18/2018 Bipolar II disorder 03/17/2018 Resolved Problems Problem Noted Date Resolved Date Suicidal ideation 03/18/2018 03/23/2018 Social History Date Tobacco Use Types Packs/Day Years Used Started: 03/17/2009 Current Every Day Smoker Cigarettes 0.25 10 Smokeless Tobacco: Never Used Tobacco Cessation: Ready to Quit: Yes; C ounseling Given: No Comments: "I'd like to quit." Drinks/Week oz/Week Comments Alcohol Use No Control Partners Comments Sexually Active Male in long-term for a yr and then to senior care Never Sex Assigned at Date Recorded Not on file Industry Job Start Date Occupation Not on file Not on file Not on file Travel End Travel History Travel Start No recent travel history available. Last Filed Vital Signs Reading Time Taken Comments Vital Sign 121/92 03/23/2018 8:15 AM CDT Blood Pressure 98 03/23/2018 8:15 AM CDT Pulse 36.3 C (97.4 F) 03/23/2018 8:14 AM CDT Temperature 17 03/23/2018 8:14 AM CDT Respiratory Rate 98% 03/23/2018 8:14 AM CDT Oxygen Saturation - - Inhaled Oxygen Concentration 84.4 kg (186 lb) 03/17/2018 9:02 PM CDT Weight 170.2 cm (5' 7") 03/17/2018 9:02 PM CDT Height 29.13 03/17/2018 9:02 PM CDT Body Mass Index Plan of Treatment Health Maintenance Due Date Last Done Comments Varicella Vaccines (1 of 1975 2 - 2-dose childhood series) Pneumo-Vaccine: Peds (0-5 1980 Yrs) & At-Risk Patients (6-64 Yrs) (1 of 1 - PPSV23) DTaP,Tdap,and Td Vaccines 1993 (1 - Tdap) MMR Vaccines-Adult 1993 Cervical Cancer Screening 1995 Influenza Vaccine (Season 06/20/2020 Ended) Implants Device Identifier Shelf Expiration Date Model / Serial / L ot Implanted Type 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 Breast Implanted: 10/20/2000 (Quantity not Tissue on file) Metal Trades Instructor Description:Bilateral Breast Implant in [facility] in 2000 Results Not on filefrom Last 3 Months Insurance Type Payer Benefit Subscriber ID Effective Phone Address Plan / Dates Group MEDICAID [place] MEDICAID xxxxxxxxxxx 2018- [address] [place] [address] Advance Directives For more information, please contact: [phone] 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
--- OUTSIDE RECORDS SUMMARY | 2020-02-24 12:20 | XMS REPORT ---
Author Author Reena SHAFFER Organization [facility] Address [address] [place] [address] Care Team Providers Care Set Staff Fitter Name Role Phone DEONDRE SHAFFER Unavailable PROBLEMS Type Condition ICD9-CM Code SVY50-NS Code Onset Dates Condition S tatus SNOMED Code Problem Hypertension I10 Active 4111436 3 Problem Bipolar II disorder F31.81 Active 44628238 Problem Arthritis M19.90 Active 4181112 Problem Migraine G43.909 Active 02331639 Problem Lumbago with sciatica, unspecified side M54.40 Active 394843537 Problem Other chronic pain G89.29 Active 8 2625044 Problem Anxiety F41.9 Active 28169659 Problem IV drug abuse F19.10 Active 137387 006 Problem Essential hypertension I10 Active 65263060 Problem Opioid use disorder, severe, in early remission, dependenc e F11.21 Active 935495095 Problem Benzodiazepine dependence F13.20 Acti ve 706094829 Problem Moderate episode of recurrent major depressive disorder F33.1 Active 812556599 Problem Affective disorder F39 Active 4 7911141 Problem Gastroesophageal reflux disease without esophagitis K21.9 Active 902635001 Problem Psoriasis L40.9 Active 8376202 ALLERGIES No Information ENCOUNTERS Encounter Location Date Diagnosis [facility] [address] [facility] [id number] [place] [address] Jan, [facility] [address] [facility] [id number] [address] [place] [phone] Jan, Opioid use disorder, severe, in early remission, dependence F11.21 [facility] [address] [facility] [id number] [address] [place] [phone] Jan, Opioid use disorder, severe, in early remission, dependence F11.21 [facility] [address] [facility] [id number] [address] [place] [phone] Jan, Opioid use disorder, severe, in early remission, dependence F11.21 [place] [address] [place] [phone] 07 Jan, 2020 Opioid use disorder, severe, in early remission, dependence F11.21 [place] [address] [place] [id number] [address] [place] [phone] 23 Dec, 2019 Opioid use disorder, severe, in early remission, dependence F11.21 [place] [address] [place] [phone] 19 Dec, 2019 [place] [address] [phone] 17 Dec, 2019 Opioid use disorder, severe, in early remission, dependence F11.21 [place] [address] [place] [id number] [address] [place] [phone] 10 Dec, 2019 Opioid use disorder, severe, in early remission, dependence F11.21 and Bipolar II disorder F31.81 [place] [address] [place] [phone] 03 Dec, 2019 Encounter for removal of sut ures Z48.02 [place] [address] [place] [id number] [address] [place] [phone] 03 Dec, 2019 Opioid use disorder, severe, in early remission, dependence F11.21 [facility] [address] [place] [id number] [place] [id number] Nov, Opioid use disorder, severe, in early remission, dependence F11.21 [place] [address] [place] [id number] [address] [place] [id number] 18 Nov, 2019 Lipoma of right upper extrem ity D17.21 [place] [address] [place] [id number] [address] [place] [phone] 18 Nov, 2019 Opioid use disorder, severe, in early remission, dependence F11.21 [place] [address] [place] [id number] [address] [place] [phone] 13 Nov, 2019 [facility] [address] [facility] [id number] [address] [place] [phone] Nov, [facility] [address] [facility] [id number] [address] [place] [phone] Nov, Opioid use disorder, severe, in early remission, dependence F11.21 [facility] [address] [facility] [id number] [address] [place] [phone] 04 Nov, 2019 Opioid use disorder, severe, in early remission, dependence F11.21 [facility] [address] [facility] [id number] [address] [place] [phone] Oct, [facility] [address] [facility] [id number] [address] [place] [phone] Oct, [facility] [address] [facility] [id number] [address] [place] [phone] Oct, [facility] [address] [facility] [id number] [address] [place] [phone] Oct, Opioid use disorder, severe, in early remission, dependence F11.21 [facility] [address] [facility] [id number] [address] [place] [phone] Oct, Opioid use disorder, severe, in early remission, dependence F11.21 and Bipolar II disorder F31.81 [facility] [address] [facility] [id number] [address] [place] [phone] Oct, [facility] [address] [facility] [id number] [address] [place] [phone] Oct, Opioid use disorder, severe, in early remission, dependence F11.21 and Bipolar II disorder F31.81 [facility] [address] [facility] [id number] [address] [place] [phone] 14 Oct, 2019 Opioid use disorder, severe, in early remission, dependence F11.21 [facility] [address] [facility] [id number] [address] [place] [phone] Oct, Opioid use disorder, severe, in early remission, dependence F11.21 ; Psoriasis L40.9 ; Lipoma of right upper extremity D17.21 and Abscess L02.91 [place] [address] [place] [id number] [address] [place] [phone] Sep, Opioid use disorder, severe, in early remission, dependence F11.21 and Benzodiazepine dependence F13.20 [place] [address] [place] [id number] [address] [place] [phone] Sep, Opioid use disorder, severe, in early remission, dependence F11.21 and Bipolar II disorder F31.81 [place] [address] [address] Sep, Opioid use disorder, severe, in early remission, dependence F11.21 [place] [address] [place] [id number] [address] [place] [phone] Sep, Opioid use disorder, severe, in early remission, dependence F11.21 and Bipolar II disorder F31.81 [place] [address] [place] [id number] [address] [place] [phone] Sep, Opioid use disorder, severe, in early remission, dependence F11.21 [place] [address] [place] [id number] [address] [place] [phone] Aug, Opioid use disorder, severe, in early remission, dependence F11.21 and Bipolar II disorder F31.81 [place] [address] [place] [address] Aug, Opioid use disorder, severe, in early remission, dependence F11.21 [place] [address] [place] [id number] [address] [place] [phone] 14 Aug, 2019 Opioid use disorder, severe, in early remission, dependence F11.21 [place] [address] [place] [id number] [address] [place] [phone] 07 Aug, 2019 Opioid use disorder, severe, in early remission, dependence F11.21 [place] [address] [id number] [address] [place] [phone] Jul, Opioid use disorder, severe, in early remission, dependence F11.21 [facility] [address] [id number] [address] [place] [phone] Jul, Opioid use disorder, severe, in early remission, dependence F11.21 [facility] [address] [facility] [id number] [address] [place] [phone] Jul, Opioid use disorder, severe, in early remission, dependence F11.21 [facility] [address] [id number] [address] [place] [phone] Jul, Opioid use disorder, severe, in early remission, dependence F11.21 [facility] [address] [facility] [id number] [address] [place] [phone] Jul, Opioid use disorder, severe, in early remission, dependence F11.21 [facility] [address] [facility] [id number] [address] [place] [phone] Jul, Opioid use disorder, severe, in early remission, dependence F11.21 [facility] [address] [facility] [id number] [address] [place] [phone] Jul, Opioid use disorder, severe, in early remission, dependence F11.21 [facility] [address] [facility] [id number] [address] [place] [phone] Jul, Opioid use disorder, severe, in early remission, dependence F11.21 [facility] [address] [id number] [address] [place] [phone] Jul, [facility] [address] [facility] [id number] [address] [place] [phone] Jul, [facility] [address] [facility] [id number] [address] [place] [phone] Jun, Opioid use disorder, severe, in early remission, dependence F11.21 [facility] [address] [facility] [id number] [address] [place] [phone] 18 Jun, 2019 Opioid use disorder, severe, in early remission, dependence F11.21 [facility] [address] [facility] [id number] [address] [place] [phone] 17 Jun, 2019 [facility] [address] [facility] [id number] [address] [place] [phone] Jun, [facility] [address] [facility] [id number] [address] [place] [address] Jun, Bipolar II disorder F31.81 ; IV drug abuse F19.10 and Opioid use disorder, severe, in early remission, dependence F11.21 [facility] [address] [facility] [id number] [address] [place] [phone] Jun, [facility] [address] [facility] [id number] [address] [place] [phone] May, [facility] [address] [facility] [id number] [address] [place] [address] May, Bipolar II disorder F31.81 [facility] [address] [facility] [id number] [address] [place] [phone] May, Bipolar II disorder F31.81 a nd Hypertension I10 [facility] [address] [facility] [id number] [address] [place] [phone] Apr, [facility] [address] [place], [place] [id number] 57 February, IV drug abuse F19.10 ; Screen for STD (sexually transmitted disease) Z11.3 and Unprotected sex Z72.51 [facility] [address] [facility] [id number] [address] [place] [phone] Dec, [facility] [address] [facility] [id number] [address] [place] [address] Jul, Moderate episode of recurren t major depressive disorder F33.1 [facility] [address] [facility] [id number] [address] [place] [address] May, [facility] [address] [id number] [address] [place] [phone] 30 Apr, 2018 Moderate episode of recurren t major depressive disorder F33.1 [facility] [address] [id number] [address] [place] [phone] 23 Apr, 2018 Moderate episode of recurren t major depressive disorder F33.1 [facility] [address] [id number] [address] [place] [phone] Apr, [facility] [address] [id number] [address] [place] [phone] 16 Apr, 2018 Moderate episode of recurren t major depressive disorder F33.1 [facility] [address] [id number] [address] [place] [phone] 28 Mar, 2018 [facility] [address] [id number] [address] [place] [phone] 15 Mar, 2018 Moderate episode of recurren t major depressive disorder F33.1 and Hypertension I10 [facility] [address] [id number] [address] [place] [address] Mar, Bipolar II disorder F31.81 [facility] [address] [id number] [address] [place] [phone] February, [facility] [address] [id number] [address] [place] [phone] February, [facility] [address] [id number] [address] [place] [address] February, [facility] [address] [id number] [address] [place] [address] Dec, [facility] [address] [id number] [address] [place] [address] Nov, Psoriasis L40.9 [facility] [address] [id number] [address] [place] [address] Nov, [facility] [address] [id number] [address] [place] [address] Nov, Anxiety F41.9 [facility] [address] [id number] [address] [place] [phone] Oct, [facility] [address] [id number] [address] [place] [phone] Oct, [facility] [address] [id number] [address] [place] [address] Oct, [facility] [address] [id number] [address] [place] [address] Oct, [facility] [address] [id number] [address] [place] [address] Sep, [facility] [address] [id number] [address] [place] [address] Sep, [facility] [address] [id number] [address] [place] [id number] Aug, Dental examination Z01.20 an d Dental caries K02.9 [facility] [address] [id number] [address] [place] [address] Aug, [facility] [address] [id number] [address] [place] [address] Jul, [facility] [address] [id number] [address] [place] [address] Jul, [facility] [address] [id number] [address] [place] [address] Jul, Moderate episode of recurren t major depressive disorder F33.1 [facility] [address] [id number] [address] [place] [address] 18 Jun, 2017 Moderate episode of recurren t major depressive disorder F33.1 and Anxiety F41.9 [facility] [address] [id number] [address] [place] [address] 14 Jun, 2017 [facility] [address] [id number] [address] [place] [address] Jun, Anxiety F41.9 [facility] [address] [facility] [id number] [address] [place] [address] Jun, Moderate episode of recurren t major depressive disorder F33.1 [facility] [address] [facility] [id number] [address] [place] [phone] Jun, [facility] [address] [facility] [id number] [address] [place] [address] May, Moderate episode of recurren t major depressive disorder F33.1 [facility] [address] [facility] [id number] [address] [place] [address] May, [place] [address] [facility] [id number] [address] [place] [address] May, Encounter for well woman exa m with routine gynecological exam Z01.419 and Anxiety F41.9 [place] [address] [facility] [id number] [address] [place] [address] Apr, [place] [address] [facility] [id number] [address] [place] [address] Mar, Affective disorder F39 ; Edenilson zodiazepine dependence F13.20 and High risk sexual behavior Z72.51 [place] [address] [facility] [id number] [address] [place] [address] 17 Jan, 2017 Dyspepsia R10.13 ; Gastroeso phageal reflux disease without esophagitis K21.9 and Affective disorder F39 [facility] [address] [facility] [id number] [address] [place] [phone] Jan, Affective disorder F39 [place] [address] [facility] [id number] [address] [place] [address] 10 Dec, 2016 Moderate episode of recurren t major depressive disorder F33.1 [facility] [address] [facility] [id number] [address] [place] [address] 14 Nov, 2016 Unspecified episodic mood di sorder F39 and Essential hypertension I10 [place] [address] [facility] [id number] [address] [place] [phone] Nov, Affective disorder F39 ; Anx iety F41.9 and Unspecified episodic mood disorder F39 [facility] [address] [facility] [id number] [address] [place] [address] Oct, [facility] [address] [facility] [id number] [address] [place] [phone] Oct, [facility] [address] [place], [place] [id number] Sep, Dysuria R30.0 [facility] [address] [facility] [id number] [address] [place] [address] Sep, [facility] [address] [facility] [id number] [address] [place] [phone] Aug, [facility] [address] [facility] [id number] [address] [place] [address] Aug, [facility] [address] [facility] [id number] [address] [place] [phone] Jul, [facility] [address] [facility] [id number] [address] [place] [address] Jul, Acute non-recurrent maxillar y sinusitis J01.00 and Dysuria R30.0 [facility] [address] [facility] [id number] [address] [place] [address] Jul, Affective disorder F39 ; Ess ential hypertension I10 ; Lumbago with sciatica, unspecified side M54.40 ; Other chronic pain G89.29 and Acute vaginitis N76.0 [facility] [address] [facility] [id number] [address] [place] [address] Jun, [facility] [address] [facility] [id number] [address] [place] [phone] Jun, [facility] [address] [facility] [id number] [address] [place] [phone] 15 Jun, 2016 [facility] [address] [facility] [id number] [address] [place] [address] May, Anxiety F41.9 [facility] [id number] [place] [phone] May, [facility] [address] [facility] [id number] [address] [place] [phone] May, [facility] [address] [address] Apr, [facility] [id number] [place] [phone] Apr, Affective disorder F39 [facility] [id number] [place] [phone] Apr, [facility] [address] [phone] Apr, Unspecified episodic mood di sorder F39 [facility] [id number] [place] [phone] Jan, Hypertension I10 [facility] [address] [address] Jan, Benzodiazepine dependence F1 3.20 and Arthritis M19.90 [facility] [address] [address] Nov, [facility] [address] [id number] Jul, Migraine G43.909 ; Hypertens ion I10 and Arthritis M19.90 [facility] [address] [id number] [address] [place] [phone] Jun, [facility] [address] [address] Jun, [facility] [address] [address] Jun, [facility] [address] [id number] [address] [place] [address], [place] [address] May, [facility] [address] [id number] [address] [place] [address], [place] [address] Jan, [facility] [address] [id number] [address] [place] [address], [place] [address] Jan, [facility] [address] [id number] [address] [place] [address], [place] [address] Nov, [facility] [address] [id number] [address] [place] [address], [place] [address] Nov, [facility] [address] [id number] [address] [place] [address], [place] [address] Oct, [facility] [address] [id number] [address] [place] [address], [place] [address] Oct, [facility] [address] [id number] [address] [place] [address], [place] [address] Oct, [facility] [address] [id number] [address] [place] [address], [place] [address] Oct, [facility] [address] [id number] [address] [place] [address], [place] [address] Aug, [facility] [address] [id number] [address] [place] [address], [place] [address] Aug, [facility] [address] [id number] [address] [place] [address], [place] [address] Aug, [facility] [address] [id number] [address] [place] [address], [place] [address] Aug, [facility] [address] [id number] [address] [place] [address], [place] [address] Aug, [facility] [address] [id number] [address] [place] [address], [place] [address] Aug, [facility] [address] [id number] [address] [place] [address], [place] [address] Aug, [facility] [address] [id number] [address] [place] [address] May, [facility] [address] [id number] [address] [place] [address], [place] [address] May, [facility] [address] [id number] [address] [place] [address], [place] [address] May, [facility] [address] [id number] [address] [place] [address], [place] [address] May, [facility] [address] [id number] [address] [place] [address], [place] [address] May, [facility] [address] [id number] [address] [place] [address], [place] [address] Apr, [facility] [address] [id number] [address] [place] [address], [place] [address] Apr, [facility] [address] [id number] [address] [place] [address], [place] [address] Apr, [facility] [address] [id number] [address] [place] [address], [place] [address] Apr, [facility] [address] [id number] [address] [place] [address], [place] [address] Apr, [facility] [address] [id number] [address] [place] [address], [place] [address] Apr, [facility] [address] [id number] [address] [place] [address], [place] [address] Apr, [facility] [address] [id number] [address] [place] [address], [place] [address] Apr, [facility] [address] [id number] [address] [place] [address], [place] [address] Mar, [facility] [address] [id number] [address] [place] [address], [place] [address] Mar, [facility] [address] [id number] [facility] [place] [address] Mar, [facility] [address] [id number] [address] [place] [address], [place] [address] Mar, [facility] [address] [id number] [address] [place] [address], [place] [address] Mar, [facility] [address] [id number] [address] [place] [address], [place] [address] Mar, [facility] [address] [id number] [address] [place] [address], [place] [address] Mar, [facility] [address] [id number] [address] [place] [address], [place] [address] February, [facility] [address] [id number] [address] [place] [address], [place] [address] February, [facility] [address] [id number] [address] [place] [address], [place] [address] Jan, [facility] [address] [id number] [address] [place] [address], [place] [address] Jan, [facility] [address] [id number] [address] [place] [address], [place] [address] Jan, [facility] [address] [id number] [address] [place] [address], [place] [address] Jan, [facility] [address] [id number] [address] [place] [address], [place] [address] Jan, [facility] [address] [id number] [address] [place] [address], [place] [address] Jan, [facility] [address] [id number] [address] [place] [address], [place] [address] Dec, [facility] [address] [id number] [address] [place] [address], [place] [address] Dec, [facility] [address] [id number] [address] [place] [address], [place] [address] Dec, [facility] [address] [id number] [address] [place] [address], [place] [address] Nov, [facility] [address] [id number] [address] [place] [address], [place] [address] Nov, [facility] [address] [id number] [address] [place] [address], [place] [address] Nov, [facility] [address] [id number] [address] [place] [address], [place] [address] Nov, [facility] [address] [id number] [address] [place] [address], [place] [address] Oct, [facility] [address] [id number] [address] [place] [address], [place] [address] Oct, [facility] [address] [id number] [address] [place] [address], [place] [address] Oct, [facility] [address] [id number] [address] [place] [address], [place] [address] Oct, [facility] [address] [id number] [address] [place] [address], [place] [address] Oct, [facility] [address] [id number] [address] [place] [address], [place] [address] Oct, [facility] [address] [id number] [address] [place] [address], [place] [address] Sep, [facility] [address] [id number] [address] [place] [address], [place] [address] Sep, [facility] [address] [id number] [address] [place] [address], [place] [address] Aug, [facility] [address] [id number] [address] [place] [address], [place] [address] Aug, [facility] [address] [id number] [address] [place] [address], [place] [address] Aug, [facility] [address] [id number] [address] [place] [address] [place] [address] Aug, [facility] [address] [id number] [address] [place] [address], [place] [address] Jul, [facility] [address] [id number] [address] [place] [address], [place] [address] Jul, [facility] [address] [id number] [address] [place] [address], [place] [address] Jul, [facility] [address] [id number] [address] [place] [address], [place] [address] Jul, [facility] [address] [id number] [address] [place] [address], [place] [address] Jul, [facility] [address] [id number] [address] [place] [address], [place] [address] Apr, [facility] [address] [id number] [address] [place] [address], [place] [address] Apr, [facility] [address] [id number] [address] [place] [address], [place] [address] Mar, [facility] [address] [id number] [address] [place] [address], [place] [address] Mar, [facility] [address] [id number] [address] [place] [address], [place] [address] February, [facility] [address] [id number] [address] [place] [address], [place] [address] Dec, [facility] [address] [id number] [address] [place] [address], [place] [address] Dec, [facility] [address] [id number] [address] [place] [address], [place] [address] Dec, [facility] [address] [id number] [address] [place] [address], [place] [address] Oct, [facility] [address] [id number] [address] [place] [address], [place] [address] Oct, [facility] [address] [id number] [address] [place] [address], [place] [address] Sep, [facility] [address] [id number] [address] [place] [address], [place] [address] Aug, [facility] [address] [id number] [address] [place] [address], [place] [address] Aug, [facility] [address] [id number] [address] [place] [address], [place] [address] Aug, [facility] [address] [id number] [address] [place] [address], [place] [address] Aug, [facility] [address] [id number] [address] [place] [address], [place] [address] Aug, [facility] [address] [id number] [address] [place] [address], [place] [address] Aug, [facility] [address] [id number] [address] [place] [address], [place] [address] Aug, [facility] [address] [id number] [address] [place] [address], [place] [address] Jul, [facility] [address] [id number] [address] [place] [address], [place] [address] Jul, [facility] [address] [id number] [address] [place] [address], [place] [address] Jul, [facility] [address] [id number] [address] [place] [address], [place] [address] Jun, [facility] [address] [id number] [address] [place] [address], [place] [address] Apr, [facility] [address] [id number] [address] [place] [address], [place] [address] Apr, [facility] [address] [id number] [address] [place] [address], [place] [address] Apr, [facility] [address] [id number] [address] [place] [address], [place] [address] 11 Mar, 2012 [facility] [address] [id number] [address] [place] [address], [place] [address] 07 Mar, 2012 [facility] [address] [id number] [address] [place] [address], [place] [address] 20 Jan, 2012 [facility] [address] [id number] [address] [place] [address], [place] [address] Dec, [facility] [address] [id number] [address] [place] [address], [place] [address] 15 May, 2011 [facility] [address] [id number] [address] [place] [address], [place] [address] Sep, [facility] [address] [id number] [address] [place] [address], [place] [address] 16 Sep, 2010 [facility] [address] [id number] [address] [place] [address], [place] [address] Aug, [facility] [address] [id number] [address] [place] [address], [place] [address] Jul, [facility] [address] [id number] [address] [place] [address], [place] [address] Jul, [facility] [address] [id number] [address] [place] [address] 15 Apr, 2010 [facility] [address] [id number] [address] [place] [address] Jan, [facility] [address] [id number] [address] [place] [address] Aug, [facility] [address] [id number] [address] [place] [address], [place] [address] Aug, [facility] [address] [id number] [address] [place] [address] Aug, [facility] [address] [id number] [address] [place] [address], [place] [address] Aug, [facility] [address] [id number] [address] [place] [address] Jul, [facility] [address] [facility] [id number] [address] [place] [address] May, [facility] [address] [facility] [id number] [address] [place] [address] Apr, [facility] [address] [facility] [id number] [address] [place] [address] February, [facility] [address] [facility] [id number] [address] [place] [address] Dec, IMMUNIZATIONS No Known Immunizations SOCIAL HISTORY Never Assessed REASON FOR VISIT PLAN OF CARE VITAL SIGNS MEDICATIONS Unknown Medications RESULTS No Results PROCEDURES No Known procedures INSTRUCTIONS MEDICATIONS ADMINISTERED No Known Medications MEDICAL (GENERAL) HISTORY Type Description Date Medical History migraine headaches Medical History Unspecified backache Medical History Opioid Use Disorder Surgical History Hysterectomy 2002 Surgical History Bladder surgeries x 3 Hospitalization History Pneumonia 2013 Hospitalization History kidney stones 2013 Hospitalization History Suicidal ideation/intentional overdo [facility] 03/16/18 Hospitalization History Behavorial hospitalization [facility] 03/2018
--- OUTSIDE RECORDS SUMMARY | 2020-02-24 12:20 | XMS REPORT ---
Author Author Reena TURCIOS Organization [facility] Address [address] [place] [address] Care Team Providers Care Repair Service Dispatcher Name Role Phone GENEVA TURCIOS Unavailable PROBLEMS Type Condition ICD9-CM Code [id number] Code Onset Dates Condition S tatus SNOMED Code Problem Hypertension I10 Active 9621549 3 Problem Bipolar II disorder F31.81 Active 59127334 Problem Arthritis M19.90 Active 7199068 Problem Migraine G43.909 Active 46396428 Problem Lumbago with sciatica, unspecified side M54.40 Active 728754411 Problem Other chronic pain G89.29 Active 8 8647785 Problem Anxiety F41.9 Active 65216414 Problem IV drug abuse F19.10 Active 704703 006 Problem Essential hypertension I10 Active 90621359 Problem Opioid use disorder, severe, in early remission, dependenc e F11.21 Active 047383848 Problem Benzodiazepine dependence F13.20 Acti ve 590564166 Problem Moderate episode of recurrent major depressive disorder F33.1 Active 528137815 Problem Affective disorder F39 Active 4 9235879 Problem Gastroesophageal reflux disease without esophagitis K21.9 Active 033564204 Problem Psoriasis L40.9 Active 1313592 ALLERGIES No Information ENCOUNTERS Encounter Location Date Diagnosis [facility] [address] [facility] [id number] [address] [place] [phone] Mar, [facility] [address] [facility] [id number] [address] [place] [address] February, [facility] [address] [id number] [address] Jan, Bipolar II disorder F31.81 [facility] [address] [facility] [id number] [address] Jan, Opioid use disorder, severe, in early remission, dependence F11.21 and Bipolar II disorder F31.81 [facility] [address] [facility] [id number] [address] [place] [address] Jan, Opioid use disorder, severe, in early remission, dependence F11.21 [facility] [address] [facility] [id number] [address] [place] [address] Jan, Opioid use disorder, severe, in early remission, dependence F11.21 [place] [address] [id number] [address] [place] [address] Jan, Opioid use disorder, severe, in early remission, dependence F11.21 [place] [address] [id number] [address] [place] [address] Jan, Opioid use disorder, severe, in early remission, dependence F11.21 [place] [address] [id number] [address] [place] [address] Dec, Opioid use disorder, severe, in early remission, dependence F11.21 [place] [address] [id number] [address] [place] [phone] 19 Dec, 2019 [place] [address] [id number] [address] [place] [address] 17 Dec, 2019 Opioid use disorder, severe, in early remission, dependence F11.21 [place] [address] [id number] [address] [place] [phone] 10 Dec, 2019 Opioid use disorder, severe, in early remission, dependence F11.21 and Bipolar II disorder F31.81 [facility] [address] [facility] [id number] [address] [place] [phone] 03 Dec, 2019 Encounter for removal of sut ures Z48.02 [place] [address] [facility] [id number] [address] [place] [id number] 03 Dec, 2019 Opioid use disorder, severe, in early remission, dependence F11.21 [facility] [address] [facility] [id number] [place] [address] Nov, Opioid use disorder, severe, in early remission, dependence F11.21 [facility] [address] [facility] [id number] [address] [place] [phone] 18 Nov, 2019 Lipoma of right upper extrem ity D17.21 [facility] [address] [facility] [id number] [address] [place] [address] 18 Nov, 2019 Opioid use disorder, severe, in early remission, dependence F11.21 [facility] [address] [facility] [id number] [address] [place] [phone] 13 Nov, 2019 [facility] [address] [facility] [id number] [address] [place] [phone] Nov, [facility] [address] [facility] [id number] [address] [place] [address] Nov, Opioid use disorder, severe, in early remission, dependence F11.21 [facility] [address] [facility] [id number] [address] [place] [address] Nov, Opioid use disorder, severe, in early remission, dependence F11.21 [facility] [address] [facility] [id number] [address] [place] [address] Oct, [facility] [address] [facility] [id number] [address] [place] [address] Oct, [facility] [address] [facility] [id number] [address] [place] [phone] Oct, [facility] [address] [facility] [id number] [address] [place] [phone] Oct, Opioid use disorder, severe, in early remission, dependence F11.21 [facility] [address] [facility] [id number] [address] [place] [address] Oct, Opioid use disorder, severe, in early remission, dependence F11.21 and Bipolar II disorder F31.81 [facility] [address] [facility] [id number] [address] [place] [address] Oct, [place] [address] [facility] [id number] [address] [place] [address] 17 Oct, 2019 Opioid use disorder, severe, in early remission, dependence F11.21 and Bipolar II disorder F31.81 [place] [address] [facility] [id number] [address] [place] [address] 14 Oct, 2019 Opioid use disorder, severe, in early remission, dependence F11.21 [place] [address] [id number] [address] [place] [address] 08 Oct, 2019 Opioid use disorder, severe, in early remission, dependence F11.21 ; Psoriasis L40.9 ; Lipoma of right upper extremity D17.21 and Abscess L02.91 [place] [address] [id number] [address] [place] [address] Sep, Opioid use disorder, severe, in early remission, dependence F11.21 and Benzodiazepine dependence F13.20 [place] [id number] [place] [address] Sep, Opioid use disorder, severe, in early remission, dependence F11.21 and Bipolar II disorder F31.81 [place] [address] [id number] [address] [place] [address] Sep, Opioid use disorder, severe, in early remission, dependence F11.21 [place] [address] [id number] [address] [place] [address] Sep, Opioid use disorder, severe, in early remission, dependence F11.21 and Bipolar II disorder F31.81 [place] [address] [id number] [address] [place] [address] Sep, Opioid use disorder, severe, in early remission, dependence F11.21 [place] [address] [id number] [address] [place] [address] Aug, Opioid use disorder, severe, in early remission, dependence F11.21 and Bipolar II disorder F31.81 [place] [address] [id number] [address] [place] [phone] Aug, Opioid use disorder, severe, in early remission, dependence F11.21 [facility] [address] [facility] [id number] [address] [place] [address] Aug, Opioid use disorder, severe, in early remission, dependence F11.21 [facility] [address] [facility] [id number] [address] [place] [address] Aug, Opioid use disorder, severe, in early remission, dependence F11.21 [facility] [address] [facility] [id number] [address] [place] [address] Jul, Opioid use disorder, severe, in early remission, dependence F11.21 [place] [address] [id number] [address] [place] [address] Jul, Opioid use disorder, severe, in early remission, dependence F11.21 [place] [address] [id number] [address] [place] [address] Jul, Opioid use disorder, severe, in early remission, dependence F11.21 [place] [address] [id number] [address] [place] [address] Jul, Opioid use disorder, severe, in early remission, dependence F11.21 [facility] [address] [id number] [address] [place] [address] Jul, Opioid use disorder, severe, in early remission, dependence F11.21 [facility] [address] [facility] [id number] [address] [place] [address] Jul, Opioid use disorder, severe, in early remission, dependence F11.21 [place] [address] [facility] [id number] [address] [place] [address] Jul, Opioid use disorder, severe, in early remission, dependence F11.21 [facility] [address] [facility] [id number] [address] [place] [address] Jul, Opioid use disorder, severe, in early remission, dependence F11.21 [facility] [address] [id number] [address] [place] [phone] Jul, [facility] [address] [facility] [id number] [address] [place] [id number] Jul, [facility] [address] [facility] [id number] [address] [place] [address] Jun, Opioid use disorder, severe, in early remission, dependence F11.21 [facility] [address] [facility] [id number] [address] [place] [address] Jun, Opioid use disorder, severe, in early remission, dependence F11.21 [facility] [address] [facility] [id number] [address] [place] [phone] Jun, [facility] [address] [facility] [id number] [address] [place] [address] Jun, [facility] [address] [facility] [id number] [address] [place] [address] Jun, Bipolar II disorder F31.81 ; IV drug abuse F19.10 and Opioid use disorder, severe, in early remission, dependence F11.21 [facility] [address] [facility] [id number] [address] [place] [address] Jun, [facility] [address] [facility] [id number] [address] [place] [address] May, [facility] [address] [facility] [id number] [address] [place] [address] May, Bipolar II disorder F31.81 [facility] [address] [facility] [id number] [address] [place] [address] May, Bipolar II disorder F31.81 a nd Hypertension I10 [facility] [address] [facility] [id number] [address] [place] [address] Apr, [facility] [address] [place], [place] [id number] 57 February, IV drug abuse F19.10 ; Screen for STD (sexually transmitted disease) Z11.3 and Unprotected sex Z72.51 [facility] [address] [id number] [address] [place] [address] Dec, [facility] [address] [id number] [address] [place] [address] Jul, Moderate episode of recurren t major depressive disorder F33.1 [facility] [address] [id number] [address] [place] [address] May, [facility] [address] [id number] [address] [place] [address] Apr, Moderate episode of recurren t major depressive disorder F33.1 [facility] [address] [id number] [address] [place] [address] Apr, Moderate episode of recurren t major depressive disorder F33.1 [facility] [address] [id number] [address] [place] [id number] Apr, [facility] [address] [id number] [address] [place] [address] Apr, Moderate episode of recurren t major depressive disorder F33.1 [facility] [address] [id number] [address] [place] [id number] Mar, [facility] [address] [id number] [address] [place] [id number] Mar, Moderate episode of recurren t major depressive disorder F33.1 and Hypertension I10 [facility] [address] [id number] [address] [place] [id number] 14 Mar, 2018 Bipolar II disorder F31.81 [facility] [address] [id number] [address] [place] [address] February, [facility] [address] [id number] [address] [place] [address] February, [facility] [address] [id number] [address] [place] [address] February, [facility] [address] [id number] [address] [place] [address] Dec, [facility] [address] [id number] [address] [place] [address] Nov, Psoriasis L40.9 [facility] [address] [id number] [address] [place] [address] Nov, [facility] [address] [id number] [address] [place] [phone] Nov, Anxiety F41.9 [facility] [address] [id number] [address] [place] [address] Oct, [facility] [address] [id number] [address] [place] [address] Oct, [facility] [address] [id number] [address] [place] [phone] Oct, [facility] [address] [id number] [address] [place] [phone] Oct, [facility] [address] [id number] [address] [place] [phone] Sep, [facility] [address] [id number] [address] [place] [address] Sep, [facility] [address] [id number] [address] [place] [id number] Aug, Dental examination Z01.20 an d Dental caries K02.9 [facility] [address] [id number] [address] [place] [address] Aug, [facility] [address] [id number] [address] [place] [id number] Jul, [facility] [address] [id number] [address] [place] [address] Jul, [facility] [address] [id number] [address] [place] [address] Jul, Moderate episode of recurren t major depressive disorder F33.1 [facility] [address] [id number] [address] [place] [phone] Jun, Moderate episode of recurren t major depressive disorder F33.1 and Anxiety F41.9 [facility] [address] [id number] [address] [place] [address] Jun, [facility] [address] [id number] [address] [place] [address] Jun, Anxiety F41.9 [place] [address] [id number] [address] [place] [address] Jun, Moderate episode of recurren t major depressive disorder F33.1 [facility] [address] [id number] [address] [place] [address] Jun, [facility] [address] [id number] [address] [place] [address] May, Moderate episode of recurren t major depressive disorder F33.1 [facility] [address] [id number] [address] [place] [address] May, [facility] [address] [id number] [address] [place] [address] May, Encounter for well woman exa m with routine gynecological exam Z01.419 and Anxiety F41.9 [facility] [address] [id number] [address] [place] [address] Apr, [facility] [address] [id number] [address] [place] [address] Mar, Affective disorder F39 ; Edenilson zodiazepine dependence F13.20 and High risk sexual behavior Z72.51 [facility] [address] [id number] [address] [place] [address] 17 Jan, 2017 Dyspepsia R10.13 ; Gastroeso phageal reflux disease without esophagitis K21.9 and Affective disorder F39 [place] [id number] [facility] [id number] [address] [place] [address] Jan, Affective disorder F39 [facility] [id number] [place] [address] Dec, Moderate episode of recurren t major depressive disorder F33.1 [facility] [address] [id number] [address] [place] [id number] 14 Nov, 2016 Unspecified episodic mood di sorder F39 and Essential hypertension I10 [facility] [address] [facility] [id number] [address] [place] [address] 02 Nov, 2016 Affective disorder F39 ; Anx iety F41.9 and Unspecified episodic mood disorder F39 [facility] [address] [facility] [id number] [address] [place] [address] Oct, [facility] [address] [address] Oct, [facility] [address] [place] [id number] 57 Sep, Dysuria R30.0 [facility] [address] [id number] [address] [place] [address] Sep, [facility] [address] [id number] [address] [place] [address] Aug, [facility] [address] [id number] [address] [place] [address] Aug, [facility] [address] [id number] [address] [place] [address] Jul, [facility] [address] [facility] [id number] [address] [place] [address] Jul, Acute non-recurrent maxillar y sinusitis J01.00 and Dysuria R30.0 [facility] [address] [id number] [address] [place] [address] Jul, Affective disorder F39 ; Ess ential hypertension I10 ; Lumbago with sciatica, unspecified side M54.40 ; Other chronic pain G89.29 and Acute vaginitis N76.0 [facility] [address] [facility] [id number] [address] [place] [id number] 22 Jun, 2016 [facility] [address] [facility] [id number] [address] [place] [address] Jun, [facility] [address] [facility] [id number] [address] [place] [address] Jun, [facility] [address] [id number] [address] [place] [address] May, Anxiety F41.9 [facility] [address] [facility] [id number] [address] [place] [phone] May, [facility] [address] [id number] [address] [place] [id number] May, [facility] [address] [facility] [id number] [address] [place] [address] Apr, [facility] [address] [facility] [id number] [address] [place] [address] Apr, Affective disorder F39 [facility] [address] [facility] [id number] [address] [place] [phone] Apr, [facility] [address] [facility] [id number] [address] [place] [phone] Apr, Unspecified episodic mood di sorder F39 [facility] [address] [facility] [id number] [address] [place] [id number] Jan, Hypertension I10 [facility] [address] [facility] [id number] [address] [place] [id number] Jan, Benzodiazepine dependence F1 3.20 and Arthritis M19.90 [facility] [address] [facility] [id number] [address] [place] [id number] Nov, [facility] [address] [place] [id number] [address] [place] [id number] Jul, Migraine G43.909 ; Hypertens ion I10 and Arthritis M19.90 [facility] [address] [id number] [address] [place] [address], [place] [phone] Jun, [facility] [address] [id number] [address] [place] [id number] Jun, [facility] [address] [id number] [address] [place] [id number] Jun, [facility] [address] [id number] [address] [place] [id number] May, [facility] [address] [id number] [address] [place] [id number] Jan, [facility] [address] [id number] [address] [place] [id number] Jan, [facility] [address] [id number] [address] [place] [id number] Nov, [facility] [address] [id number] [address] [place] [id number] Nov, [facility] [address] [id number] [address] [place] [id number] Oct, [facility] [address] [id number] [address] [place] [id number] Oct, [facility] [address] [id number] [address] [place] [id number] Oct, [facility] [address] [id number] [address] [place] [id number] Oct, [facility] [address] [id number] [address] [place] [id number] Aug, [facility] [address] [id number] [address] [place] [id number] Aug, [facility] [address] [id number] [address] [place] [id number] Aug, [facility] [address] [id number] [facility] [place] [address] Aug, [facility] [address] [id number] [address] [place] [address], [place] [address] Aug, [facility] [address] [id number] [address] [place] [address], [place] [address] Aug, [facility] [address] [id number] [address] [place] [address], [place] [address] Aug, [facility] [address] [id number] [address] [place] [address], [place] [address] May, [facility] [address] [id number] [address] [place] [address], [place] [address] May, [facility] [address] [id number] [address] [place] [address], [place] [address] May, [facility] [address] [id number] [address] [place] [address], [place] [address] May, [facility] [address] [id number] [address] [place] [address], [place] [address] May, [facility] [address] [id number] [address] [place] [address], [place] [address] Apr, [facility] [address] [id number] [address] [place] [address], [place] [address] Apr, [facility] [address] [id number] [address] [place] [address], [place] [address] Apr, [facility] [address] [id number] [address] [place] [address], [place] [address] Apr, [facility] [address] [id number] [address] [place] [address], [place] [address] Apr, [facility] [address] [id number] [address] [place] [address], [place] [address] Apr, [facility] [address] [id number] [facility] [place] [address] Apr, [facility] [address] [id number] [address] [place] [address], [place] [address] Apr, [facility] [address] [id number] [facility] [place] [address] Mar, [facility] [address] [id number] [address] [place] [address], [place] [address] Mar, [facility] [address] [id number] [address] [place] [address], [place] [address] Mar, [facility] [address] [id number] [address] [place] [address], [place] [address] Mar, [facility] [address] [id number] [address] [place] [address], [place] [address] Mar, [facility] [address] [id number] [address] [place] [address], [place] [address] Mar, [facility] [address] [id number] [address] [place] [address], [place] [address] Mar, [facility] [address] [id number] [address] [place] [address], [place] [address] February, [facility] [address] [id number] [address] [place] [address], [place] [address] February, [facility] [address] [id number] [address] [place] [address], [place] [address] Jan, [facility] [address] [id number] [address] [place] [address], [place] [address] Jan, [facility] [address] [id number] [address] [place] [address], [place] [address] Jan, [facility] [address] [id number] [address] [place] [address], [place] [address] Jan, [facility] [address] [id number] [address] [place] [address], [place] [address] Jan, [facility] [address] [id number] [address] [place] [address], [place] [address] Jan, [facility] [address] [id number] [address] [place] [address], [place] [address] Dec, [facility] [address] [id number] [address] [place] [address], [place] [address] Dec, [facility] [address] [id number] [address] [place] [address], [place] [address] Dec, [facility] [address] [id number] [address] [place] [address], [place] [address] Nov, [facility] [address] [id number] [address] [place] [address], [place] [address] Nov, [facility] [address] [id number] [address] [place] [address], [place] [address] Nov, [facility] [address] [id number] [address] [place] [address], [place] [address] Nov, [facility] [address] [id number] [address] [place] [address], [place] [address] Oct, [facility] [address] [id number] [address] [place] [address], [place] [address] Oct, [facility] [address] [id number] [address] [place] [address], [place] [address] Oct, [facility] [address] [id number] [address] [place] [address], [place] [address] Oct, [facility] [address] [id number] [address] [place] [address], [place] [address] Oct, [facility] [address] [id number] [address] [place] [address], [place] [address] Oct, [facility] [address] [id number] [address] [place] [address], [place] [address] Sep, [facility] [address] [id number] [address] [place] [address], [place] [address] Sep, [facility] [address] [id number] [address] [place] [address], [place] [address] Aug, [facility] [address] [id number] [address] [place] [address], [place] [address] Aug, [facility] [address] [id number] [address] [place] [address], [place] [address] Aug, [facility] [address] [id number] [address] [place] [address], [place] [address] Aug, [facility] [address] [id number] [address] [place] [address], [place] [address] Jul, [facility] [address] [id number] [address] [place] [address], [place] [address] Jul, [facility] [address] [id number] [address] [place] [address], [place] [address] Jul, [facility] [address] [id number] [address] [place] [address], [place] [address] Jul, [facility] [address] [id number] [address] [place] [address], [place] [address] Jul, [facility] [address] [id number] [address] [place] [address], [place] [address] Apr, [facility] [address] [id number] [address] [place] [address], [place] [address] Apr, [facility] [address] [id number] [address] [place] [address], [place] [address] Mar, [facility] [address] [id number] [address] [place] [address], [place] [address] Mar, [facility] [address] [id number] [address] [place] [address], [place] [address] February, [facility] [address] [id number] [address] [place] [address], [place] [address] Dec, [facility] [address] [id number] [address] [place] [address], [place] [address] Dec, [facility] [address] [id number] [address] [place] [address], [place] [address] Dec, [facility] [address] [id number] [address] [place] [address], [place] [address] Oct, [facility] [address] [id number] [address] [place] [address], [place] [address] Oct, [facility] [address] [id number] [address] [place] [address], [place] [address] Sep, [facility] [address] [id number] [address] [place] [address], [place] [address] Aug, [facility] [address] [id number] [address] [place] [address], [place] [address] Aug, [facility] [address] [id number] [address] [place] [address], [place] [address] Aug, [facility] [address] [id number] [address] [place] [address], [place] [address] Aug, [facility] [address] [id number] [address] [place] [address], [place] [address] Aug, [facility] [address] [id number] [address] [place] [address], [place] [address] Aug, [facility] [address] [id number] [address] [place] [address], [place] [address] Aug, [facility] [address] [id number] [address] [place] [address], [place] [address] Jul, [facility] [address] [id number] [address] [place] [address], [place] [address] Jul, [facility] [address] [id number] [address] [place] [address], [place] [address] Jul, [facility] [address] [id number] [address] [place] [address], [place] [address] Jun, [facility] [address] [id number] [address] [place] [address], [place] [address] Apr, [facility] [address] [id number] [address] [place] [address], [place] [address] 17 Apr, 2012 [facility] [address] [id number] [address] [place] [address], [place] [address] Apr, [facility] [address] [id number] [address] [place] [address], [place] [address] Mar, [facility] [address] [id number] [address] [place] [address], [place] [address] Mar, [facility] [address] [id number] [address] [place] [address], [place] [address] Jan, [facility] [address] [id number] [address] [place] [address], [place] [address] Dec, [facility] [address] [id number] [address] [place] [address], [place] [address] May, [facility] [address] [id number] [address] [place] [address], [place] [address] Sep, [facility] [address] [id number] [address] [place] [address], [place] [address] 16 Sep, 2010 [facility] [address] [id number] [address] [place] [address], [place] [address] Aug, [facility] [address] [id number] [address] [place] [address], [place] [address] Jul, [facility] [address] [id number] [address] [place] [address], [place] [address] Jul, [facility] [address] [id number] [address] [place] [address], [place] [address] 15 Apr, 2010 [facility] [address] [id number] [address] [place] [address], [place] [address] Jan, [facility] [address] [id number] [address] [place] [id number] 11 Aug, 2009 [facility] [address] [id number] [address] [place] [id number] Aug, [facility] [address] [id number] [address] [place] [id number] Aug, [facility] [address] [facility] [id number] [address] [place] [id number] Aug, [facility] [address] [facility] [id number] [address] [place] [id number] Jul, [facility] [address] [facility] [id number] [address] [place] [id number] May, [facility] [address] [facility] [id number] [address] [place] [id number] Apr, [facility] [address] [facility] [id number] [address] [place] [id number] February, [facility] [address] [facility] [id number] [address] [place] [id number] Dec, IMMUNIZATIONS No Known Immunizations SOCIAL HISTORY [...] stones 2013 Hospitalization History Suicidal ideation/intentional overdo [facility] 03/16/18 Hospitalization History Behavorial hospitalization [facility] 03/2018
--- OUTSIDE RECORDS SUMMARY | 2020-02-24 12:21 | XMS REPORT ---
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 Role Phone DEONDRE SHAFFER Unavailable PROBLEMS Type Condition ICD9-CM Code [id number] Code Onset Dates Condition S tatus SNOMED Code Problem Hypertension I10 Active 4178071 3 Problem Bipolar II disorder F31.81 Active 64983106 Problem Arthritis M19.90 Active 8737431 Problem Migraine G43.909 Active 22158130 Problem Lumbago with sciatica, unspecified side M54.40 Active 625605135 Problem Other chronic pain G89.29 Active 8 2869047 Problem Anxiety F41.9 Active 08203650 Problem IV drug abuse F19.10 Active 266730 006 Problem Essential hypertension I10 Active 20224286 Problem Opioid use disorder, severe, in early remission, dependenc e F11.21 Active 151527953 Problem Benzodiazepine dependence F13.20 Acti ve 895218080 Problem Moderate episode of recurrent major depressive disorder F33.1 Active 165214416 Problem Affective disorder F39 Active 4 8989483 Problem Gastroesophageal reflux disease without esophagitis K21.9 Active 588310748 Problem Psoriasis L40.9 Active 1389775 ALLERGIES No Information ENCOUNTERS Encounter Location Date Diagnosis [facility] [place] [id number] [place] [address] Dec, [facility] [place] [address] [address] Dec, [facility] [place] [address] [address] 17 Dec, 2019 Opioid use disorder, severe, in early re mission, dependence F11.21 [facility] [place] [address] [address] Dec, Opioid use disorder, severe, in early re mission, dependence F11.21 and Bipolar II disorder F31.81 [facility] [place] [address] [id number] [place] [address] 03 Dec, 2019 Encounter for removal of sutures Z48.02 [facility] [place] [id number] [place] [address] Dec, Opioid use disorder, severe, in early re mission, dependence F11.21 [facility] [place] [address] [facility] [place] [address] 25 Nov, 2019 Opioid use disorder, severe, in early remission, dependence F11.21 [facility] [place] [id number] [place] [address] 18 Nov, 2019 Lipoma of right upper extremity D17.21 [facility] [place] [id number] [place] [address] 18 Nov, 2019 Opioid use disorder, severe, in early re mission, dependence F11.21 [facility] [place] [address] [address] 13 Nov, 2019 [facility] [place] [address] [address] Nov, [facility] [place] [address] [address] Nov, Opioid use disorder, severe, in early re mission, dependence F11.21 [facility] [place] [address] [address] 04 Nov, 2019 Opioid use disorder, severe, in early re mission, dependence F11.21 [facility] [place] [address] [address] Oct, [facility] [place] [address] [address] Oct, [facility] [place] [address] [address] Oct, [facility] [place] [address] [address] Oct, Opioid use disorder, severe, in early re mission, dependence F11.21 [place] [address] [address] Oct, Opioid use disorder, severe, in early re mission, dependence F11.21 and Bipolar II disorder F31.81 [place] [address] [address] Oct, [place] [address] [address] 17 Oct, 2019 Opioid use disorder, severe, in early re mission, dependence F11.21 and Bipolar II disorder F31.81 [place] [address] 14 Oct, 2019 Opioid use disorder, severe, in early re mission, dependence F11.21 [place] [address] [address] 08 Oct, 2019 Opioid use disorder, severe, in early re mission, dependence F11.21 ; Psoriasis L40.9 ; Lipoma of right upper extremity D17.21 and Abscess L02.91 [place] [address] [address] Sep, Opioid use disorder, severe, in early re mission, dependence F11.21 and Benzodiazepine dependence F13.20 [place] [address] [address] Sep, Opioid use disorder, severe, in early re mission, dependence F11.21 and Bipolar II disorder F31.81 [place] [address] [address] Sep, Opioid use disorder, severe, in early re mission, dependence F11.21 [place] [address] [address] Sep, Opioid use disorder, severe, in early re mission, dependence F11.21 and Bipolar II disorder F31.81 [place] [address] [address] Sep, Opioid use disorder, severe, in early re mission, dependence F11.21 [facility] [place] [address] [place] [address] Aug, Opioid use disorder, severe, in early re mission, dependence F11.21 and Bipolar II disorder F31.81 [facility] [place] [address] [place] [address] Aug, Opioid use disorder, severe, in early re mission, dependence F11.21 [facility] [place] [address] [address] Aug, Opioid use disorder, severe, in early re mission, dependence F11.21 [facility] [place] [address] [address] 07 Aug, 2019 Opioid use disorder, severe, in early re mission, dependence F11.21 [place] [address] [address] Jul, Opioid use disorder, severe, in early re mission, dependence F11.21 [facility] [place] [address] [address] Jul, Opioid use disorder, severe, in early re mission, dependence F11.21 [facility] [place] [address] [address] Jul, Opioid use disorder, severe, in early re mission, dependence F11.21 [facility] [place] [address] [address] Jul, Opioid use disorder, severe, in early re mission, dependence F11.21 [facility] [place] [address] [address] Jul, Opioid use disorder, severe, in early re mission, dependence F11.21 [facility] [place] [address] [address] Jul, Opioid use disorder, severe, in early re mission, dependence F11.21 [facility] [place] [address] [address] Jul, Opioid use disorder, severe, in early re mission, dependence F11.21 [facility] [place] [address] [address] Jul, Opioid use disorder, severe, in early re mission, dependence F11.21 [facility] [place] [address] [address] Jul, [facility] [place] [address] [address] Jul, [facility] [place] [address] [address] Jun, Opioid use disorder, severe, in early re mission, dependence F11.21 [facility] [place] [address] [address] Jun, Opioid use disorder, severe, in early re mission, dependence F11.21 [facility] [place] [address] [address] Jun, [facility] [place] [address] [address] Jun, [facility] [place] [address] [address] Jun, Bipolar II disorder F31.81 ; IV drug abu se F19.10 and Opioid use disorder, severe, in early remission, dependence F11.21 [facility] [place] [address] [address] Jun, [facility] [place] [address] [address] May, [facility] [place] [address] [address] May, Bipolar II disorder F31.81 [facility] [place] [address] [address] May, Bipolar II disorder F31.81 and Hypertens ion I10 [place] [address] [address] Apr, [facility] [address] [place] [address] 57 February, IV drug abuse F19.10 ; Screen for STD (sexually transmitted disease) Z11.3 and Unprotected sex Z72.51 [place] [address] [address] Dec, [place] [address] [address] Jul, Moderate episode of recurrent major depr essive disorder F33.1 [place] [address] [address] May, [place] [address] [address] Apr, Moderate episode of recurrent major depr essive disorder F33.1 [place] [address] [address] Apr, Moderate episode of recurrent major depr essive disorder F33.1 [place] [address] [address] Apr, [place] [address] [address] Apr, Moderate episode of recurrent major depr essive disorder F33.1 [place] [address] [address] Mar, [place] [address] [address] Mar, Moderate episode of recurrent major depr essive disorder F33.1 and Hypertension I10 [place] [address] [address] 14 Mar, 2018 Bipolar II disorder F31.81 [facility] [place] [address] [address] February, [place] [address] [address] February, [facility] [id number] [place] [address] February, [facility] [id number] [place] [address] Dec, [facility] [id number] [place] [address] Nov, Psoriasis L40.9 [facility] [id number] [place] [address] Nov, [facility] [id number] [place] [address] Nov, Anxiety F41.9 [facility] [id number] [place] [address] Oct, [facility] [id number] [place] [address] Oct, [facility] [place] [id number] [place] [address] Oct, [facility] [id number] [place] [address] Oct, [facility] [place] [id number] [place] [address] Sep, [facility] [place] [id number] [place] [address] Sep, [facility] [address] [id number] [place] [address] Aug, Dental examination Z01.20 and Dental car ies K02.9 [facility] [place] [id number] [place] [address] Aug, [facility] [id number] [place] [address] Jul, [facility] [id number] [place] [address] Jul, [facility] [address] [address] Jul, Moderate episode of recurrent major depr essive disorder F33.1 [facility] [place] [address] [address] 18 Jun, 2017 Moderate episode of recurrent major depr essive disorder F33.1 and Anxiety F41.9 [facility] [place] [address] [address] 14 Jun, 2017 [facility] [place] [address] [address] Jun, Anxiety F41.9 [place] [address] [address] Jun, Moderate episode of recurrent major depr essive disorder F33.1 [address] [address] [address] Jun, [place] [address] [address] May, Moderate episode of recurrent major depr essive disorder F33.1 [facility] [address] [facility] [id number] [address] [place] [address] May, [facility] [place] [address] [address] May, Encounter for well woman exam with nessa najera gynecological exam Z01.419 and Anxiety F41.9 [place] [address] [address] Apr, [place] [address] [address] Mar, Affective disorder F39 ; Benzodiazepine dependence F13.20 and High risk sexual behavior Z72.51 [place] [address] [address] Jan, Dyspepsia R10.13 ; Gastroesophageal refl ux disease without esophagitis K21.9 and Affective disorder F39 [place] [address] [address] Jan, Affective disorder F39 [facility] [place] [address] [address] Dec, Moderate episode of recurrent major depr essive disorder F33.1 [facility] [place] [address] [address] 14 Nov, 2016 Unspecified episodic mood disorder F39 a nd Essential hypertension I10 [facility] [place] [address] [address] 02 Nov, 2016 Affective disorder F39 ; Anxiety F41.9 a nd Unspecified episodic mood disorder F39 [facility] [place] [address] [address] Oct, [facility] [place] [address] [address] Oct, [facility] [address] [place], [place] [id number] 57 Sep, Dysuria R30.0 [facility] [place] [address] [address] Sep, [facility] [place] [address] [address] Aug, [facility] [place] [address] [address] Aug, [facility] [place] [address] [address] Jul, [facility] [address] [facility] [id number] [place] [address] Jul, Acute non-recurrent maxillar y sinusitis J01.00 and Dysuria R30.0 [facility] [place] [address] [address] Jul, Affective disorder F39 ; Essential hyper tension I10 ; Lumbago with sciatica, unspecified side M54.40 ; Other chronic pain G89.29 and Acute vaginitis N76.0 [facility] [place] [address] [place] [address] 22 Jun, 2016 [facility] [place] [address] [address] Jun, [facility] [place] [address] [address] Jun, [facility] [address] [facility] [id number] [address] [place] [address] May, Anxiety F41.9 [facility] [place] [address] [address] May, [facility] [place] [address] [address] May, [facility] [place] [address] [address] Apr, [facility] [place] [address] [address] Apr, Affective disorder F39 [facility] [place] [address] [address] Apr, [facility] [place] [address] [address] Apr, Unspecified episodic mood disorder F39 [facility] [place] [address] [address] Jan, Hypertension I10 [facility] [place] [address] [address] Jan, Benzodiazepine dependence F13.20 and Art hritis M19.90 [facility] [place] [address] [address] Nov, [facility] [place] [address] [address] Jul, Migraine G43.909 ; Hypertension I10 and Arthritis M19.90 [facility] [place] [address] [address] Jun, [facility] [place] [address] [place] [address] Jun, [facility] [address] [id number] [place] [address] Jun, [facility] [address] [id number] [place] [address] May, [facility] [address] [id number] [place] [address] Jan, [facility] [address] [id number] [place] [address] Jan, [facility] [address] [id number] [place] [address] Nov, [facility] [address] [id number] [place] [address] Nov, [facility] [address] [id number] [place] [address] Oct, [facility] [address] [id number] [place] [address] Oct, [facility] [address] [id number] [place] [address] Oct, [facility] [address] [id number] [place] [address] Oct, [facility] [address] [id number] [place] [address] Aug, [facility] [address] [id number] [place] [address] Aug, [facility] [address] [id number] [place] [address] Aug, [facility] [id number] [place] [address] Aug, [facility] [address] [id number] [place] [address] Aug, [facility] [id number] [place] [address] Aug, [facility] [address] [facility] [id number] [place] [address] Aug, [facility] [address] [facility] [id number] [place] [address] May, [facility] [address] [facility] [id number] [place] [address] May, [facility] [address] [id number] [place] [address] May, [facility] [address] [facility] [id number] [place] [address] May, [facility] [address] [id number] [place] [address] May, [facility] [address] [id number] [place] [address] Apr, [facility] [address] [id number] [place] [address] Apr, [facility] [address] [id number] [place] [address] Apr, [facility] [address] [id number] [place] [address] Apr, [facility] [address] [id number] [place] [address] Apr, [facility] [address] [id number] [place] [address] Apr, [facility] [address] [id number] [place] [address] Apr, [facility] [address] [facility] [id number] [place] [address] Apr, [facility] [address] [id number] [place] [address] Mar, [facility] [address] [id number] [place] [address] Mar, [facility] [address] [id number] [place] [address] Mar, [facility] [address] [facility] [id number] [facility] [place] [address] Mar, [facility] [address] [id number] [facility] [place] [address] Mar, [facility] [address] [id number] [facility] [place] [address] Mar, [facility] [address] [id number] [facility] [place] [address] Mar, [facility] [address] [id number] [facility] [place] [address] February, [facility] [address] [id number] [place] [address] February, [facility] [address] [id number] [place] [address] Jan, [facility] [address] [id number] [facility] [place] [address] Jan, [facility] [address] [id number] [place] [address] Jan, [facility] [address] [id number] [place] [address] Jan, [facility] [address] [id number] [place] [address] Jan, [facility] [address] [id number] [place] [address] Jan, [facility] [address] [id number] [place] [address] Dec, [facility] [address] [id number] [place] [address] Dec, [facility] [address] [id number] [place] [address] Dec, [facility] [address] [id number] [place] [address] Nov, [facility] [address] [id number] [place] [address] 17 Nov, 2013 [facility] [address] [id number] [place] [address] Nov, [facility] [address] [id number] [place] [address] Nov, [facility] [address] [id number] [place] [address] Oct, [facility] [address] [id number] [place] [address] Oct, [facility] [address] [id number] [place] [address] Oct, [facility] [address] [id number] [place] [address] Oct, [facility] [address] [id number] [place] [address] Oct, [facility] [address] [id number] [place] [address] Oct, [facility] [address] [id number] [place] [address] Sep, [facility] [address] [id number] [place] [address] Sep, [facility] [address] [id number] [place] [address] Aug, [facility] [address] [id number] [place] [address] Aug, [facility] [address] [id number] [place] [address] Aug, [facility] [id number] [place] [address] Aug, [facility] [address] [id number] [place] [address] Jul, [facility] [address] [id number] [place] [address] Jul, [facility] [address] [id number] [place] [address] Jul, [facility] [address] [id number] [place] [address] Jul, [facility] [address] [id number] [place] [address] Jul, [facility] [address] [id number] [place] [address] Apr, [facility] [address] [facility] [id number] [place] [address] Apr, [facility] [address] [id number] [place] [address] Mar, [facility] [address] [id number] [place] [address] Mar, [facility] [address] [id number] [place] [address] February, [facility] [address] [id number] [place] [address] Dec, [facility] [address] [id number] [place] [address] Dec, [facility] [address] [id number] [place] [address] Dec, [facility] [address] [id number] [place] [address] Oct, [facility] [address] [id number] [place] [address] Oct, [facility] [address] [id number] [place] [address] Sep, [facility] [address] [id number] [place] [address] Aug, [facility] [address] [id number] [place] [address] Aug, [facility] [address] [id number] [place] [address] Aug, [facility] [address] [id number] [place] [address] Aug, [facility] [address] [id number] [place] [address] Aug, [facility] [address] [id number] [place] [address] Aug, [facility] [address] [id number] [place] [address] Aug, [facility] [address] [id number] [place] [address] Jul, [facility] [address] [id number] [place] [address] Jul, [facility] [address] [id number] [place] [address] Jul, [facility] [address] [id number] [place] [address] Jun, [facility] [address] [id number] [place] [address] Apr, [facility] [address] [id number] [place] [address] Apr, [facility] [address] [id number] [place] [address] Apr, [facility] [address] [id number] [place] [address] Mar, [facility] [address] [id number] [place] [address] Mar, [facility] [address] [id number] [place] [address] Jan, [facility] [address] [id number] [place] [address] Dec, [facility] [address] [id number] [place] [address] May, [facility] [address] [id number] [place] [address] Sep, [facility] [place] [address] [id number] [place] [address] Sep, [facility] [place] [address] [id number] [place] [address] Aug, [facility] [place] [address] [id number] [place] [address] Jul, [facility] [place] [id number] [place] [address] Jul, [facility], [place] [id number] [place] [address] Apr, [facility], [place] [id number] [place] [address] Jan, [facility], [place] [id number] [place] [address] Aug, [facility], [place] [id number] [place] [address] Aug, [facility], [place] [id number] [place] [address] Aug, [facility], [place] [id number] [place] [address] Aug, [facility], [place] [id number] [place] [address] Jul, [facility], [place] [id number] [place] [address] May, [facility], [place] [id number] [place] [address] Apr, [facility], [place] [id number] [place] [address] February, [facility], [place] [id number] [place] [address] Dec, IMMUNIZATIONS No Known Immunizations SOCIAL HISTORY Never Assessed REASON FOR VISIT PLAN OF CARE VITAL SIGNS Height 67 in 2013-11-08 Weight 179 lbs 2013-11-08 Temperature 98.6 degrees Fahrenheit 2013-11-08 Heart Rate 96 bpm 2013-11-08 Respiratory Rate 20 2013-11-08 Blood pressure systolic 148 mmHg 2013-11-08 Blood pressure diastolic 110 mmHg 2013-11-08 MEDICATIONS Unknown Medications RESULTS No Results PROCEDURES Procedure Date Ordered Result Body Site DRUG SCREEN, QUALITATE/MULTI Nov 08, 2013 INSTRUCTIONS MEDICATIONS ADMINISTERED No Known Medications MEDICAL (GENERAL) HISTORY Type Description Date Medical History migraine headaches Medical History Unspecified backache Medical History Opioid Use Disorder Surgical History Hysterectomy 2002 Surgical History Bladder surgeries x 3 Hospitalization History Pneumonia 2014 Hospitalization History kidney stones 2013 Hospitalization History Suicidal ideation/intentional overdo [facility] 03/16/18 Hospitalization History Behavorial hospitalization [facility] 03/2018
--- OUTSIDE RECORDS SUMMARY | 2020-02-24 12:21 | XMS REPORT ---
Author Author Reena SHAFFER Organization [facility] Address [address] [place] [address] Care Team Providers Care Wire Threader Name Role Phone DEONDRE SHAFFER Unavailable PROBLEMS Type Condition ICD9-CM Code UBZ72-GM Code Onset Dates Condition S tatus SNOMED Code Problem Hypertension I10 Active 4343708 3 Problem Bipolar II disorder F31.81 Active 18052800 Problem Arthritis M19.90 Active 4965966 Problem Migraine G43.909 Active 23096766 Problem Lumbago with sciatica, unspecified side M54.40 Active 448070779 Problem Other chronic pain G89.29 Active 8 7088014 Problem Anxiety F41.9 Active 05307928 Problem IV drug abuse F19.10 Active 418674 006 Problem Essential hypertension I10 Active 27040343 Problem Opioid use disorder, severe, in early remission, dependenc e F11.21 Active 991809505 Problem Benzodiazepine dependence F13.20 Acti ve 827755305 Problem Moderate episode of recurrent major depressive disorder F33.1 Active 878454427 Problem Affective disorder F39 Active 4 1688253 Problem Gastroesophageal reflux disease without esophagitis K21.9 Active 661487710 Problem Psoriasis L40.9 Active 0267295 ALLERGIES No Information ENCOUNTERS Encounter Location Date Diagnosis [facility] [id number] [place] [address] 23 Dec, 2019 Opioid use disorder, severe, in early re mission, dependence F11.21 [facility] [address] [address] 19 Dec, 2019 [facility] [address] [address] 17 Dec, 2019 Opioid use disorder, severe, in early re mission, dependence F11.21 [facility] [address] [address] 10 Dec, 2019 Opioid use disorder, severe, in early re mission, dependence F11.21 and Bipolar II disorder F31.81 [facility] [id number] [place] [address] 03 Dec, 2019 Encounter for removal of sutures Z48.02 [facility] [id number] [place] [address] 03 Dec, 2019 Opioid use disorder, severe, in early re mission, dependence F11.21 [facility] [address] [facility] [place] [address] 25 Nov, 2019 Opioid use disorder, severe, in early remission, dependence F11.21 [facility] [id number] [place] [address] 18 Nov, 2019 Lipoma of right upper extremity D17.21 [facility] [id number] [place] [address] 18 Nov, 2019 Opioid use disorder, severe, in early re mission, dependence F11.21 [facility] [id number] [place] [address] 13 Nov, 2019 [facility] [address] [address] Nov, [facility] [id number] [place] [address] Nov, Opioid use disorder, severe, in early re mission, dependence F11.21 [facility] [id number] [place] [address] 04 Nov, 2019 Opioid use disorder, severe, in early re mission, dependence F11.21 [facility] [id number] [place] [address] Oct, [facility] [id number] [place] [address] Oct, [facility] [id number] [place] [address] Oct, [facility] [address] [address] 28 Oct, 2019 Opioid use disorder, severe, in early re mission, dependence F11.21 [place] [address] [address] 24 Oct, 2019 Opioid use disorder, severe, in early re mission, dependence F11.21 and Bipolar II disorder F31.81 [facility] [address] [address] Oct, [address] [place] [address] 17 Oct, 2019 Opioid use disorder, severe, in early re mission, dependence F11.21 and Bipolar II disorder F31.81 [place] [address] [address] 14 Oct, 2019 Opioid use disorder, severe, in early re mission, dependence F11.21 [place] [address] [address] 08 Oct, 2019 Opioid use disorder, severe, in early re mission, dependence F11.21 ; Psoriasis L40.9 ; Lipoma of right upper extremity D17.21 and Abscess L02.91 [place] [address] [address] Sep, Opioid use disorder, severe, in early re mission, dependence F11.21 and Benzodiazepine dependence F13.20 [place] [address] [address] Sep, Opioid use disorder, severe, in early re mission, dependence F11.21 and Bipolar II disorder F31.[address] [address] Sep, Opioid use disorder, severe, in early re mission, dependence F11.21 [place] [address] [address] Sep, Opioid use disorder, severe, in early re mission, dependence F11.21 and Bipolar II disorder F31.81 [place] [address] [address] Sep, Opioid use disorder, severe, in early re mission, dependence F11.21 [facility] [address] [address] Aug, Opioid use disorder, severe, in early re mission, dependence F11.21 and Bipolar II disorder F31.81 [facility] [address] [address] Aug, Opioid use disorder, severe, in early re mission, dependence F11.21 [facility] [address] [address] Aug, Opioid use disorder, severe, in early re mission, dependence F11.21 [facility] [address] [address] 07 Aug, 2019 Opioid use disorder, severe, in early re mission, dependence F11.21 [place] [address] [address] Jul, Opioid use disorder, severe, in early re mission, dependence F11.21 [facility] [address] [address] Jul, Opioid use disorder, severe, in early re mission, dependence F11.21 [facility] [address] [address] Jul, Opioid use disorder, severe, in early re mission, dependence F11.21 [facility] [address] [address] Jul, Opioid use disorder, severe, in early re mission, dependence F11.21 [facility] [address] [address] Jul, Opioid use disorder, severe, in early re mission, dependence F11.21 [facility] [address] [address] Jul, Opioid use disorder, severe, in early re mission, dependence F11.21 [facility] [address] [address] Jul, Opioid use disorder, severe, in early re mission, dependence F11.21 [facility] [address] [address] Jul, Opioid use disorder, severe, in early re mission, dependence F11.21 [facility] [address] [address] Jul, [facility] [address] [address] Jul, [facility] [address] [address] Jun, Opioid use disorder, severe, in early re mission, dependence F11.21 [facility] [address] [address] Jun, Opioid use disorder, severe, in early re mission, dependence F11.21 [facility] [address] [address] Jun, [facility] [address] [address] Jun, [facility] [address] [address] Jun, Bipolar II disorder F31.81 ; IV drug abu se F19.10 and Opioid use disorder, severe, in early remission, dependence F11.21 [facility] [address] [address] Jun, [facility] [address] [address] May, [facility] [address] [address] May, Bipolar II disorder F31.81 [facility] [address] [address] May, Bipolar II disorder F31.81 and Hypertens ion I10 [place] [address] [address] Apr, [facility] [address] [place] [address] 57 February, IV drug abuse F19.10 ; Screen for STD (sexually transmitted disease) Z11.3 and Unprotected sex Z72.51 [place] [address] [address] Dec, [place] [address] [address] Jul, Moderate episode of recurrent major depr essive disorder F33.1 [place] [address] [address] May, [place] [address] [address] Apr, Moderate episode of recurrent major depr essive disorder F33.1 [place] [address] [address] Apr, Moderate episode of recurrent major depr essive disorder F33.1 [place] [address] [address] Apr, [place] [address] [address] Apr, Moderate episode of recurrent major depr essive disorder F33.1 [place] [address] [address] Mar, [facility] [address] [address] Mar, Moderate episode of recurrent major depr essive disorder F33.1 and Hypertension I10 [facility] [address] [address] Mar, Bipolar II disorder F31.81 [place] [address] [address] February, [facility] [id number] [place] [address] February, [facility] [id number] [place] [address] February, [facility] [id number] [place] [address] Dec, [facility] [id number] [place] [address] Nov, Psoriasis L40.9 [facility] [id number] [place] [address] Nov, [facility] [id number] [place] [address] Nov, Anxiety F41.9 [facility] [id number] [place] [address] Oct, [facility] [id number] [place] [address] Oct, [facility] [id number] [place] [address] Oct, [facility] [id number] [place] [address] Oct, [facility] [id number] [place] [address] Sep, [facility] [id number] [place] [address] Sep, [facility] [address] [facility] [place] [id number] Aug, Dental examination Z01.20 and Dental car ies K02.9 [facility] [id number] [place] [address] Aug, [facility] [address] [address] Jul, [facility] [id number] [place] [address] Jul, [facility] [address] [address] Jul, Moderate episode of recurrent major depr essive disorder F33.1 [facility] [address] [address] 18 Jun, 2017 Moderate episode of recurrent major depr essive disorder F33.1 and Anxiety F41.9 [facility] [address] [address] 14 Jun, 2017 [facility] [address] [address] Jun, Anxiety F41.9 [facility] [address] [address] Jun, Moderate episode of recurrent major depr essive disorder F33.1 [facility] [address] [address] Jun, [facility] [address] [address] May, Moderate episode of recurrent major depr essive disorder F33.1 [facility] [address] [facility] [id number] [address] [place] [address] May, [facility] [address] [id number] [place] [address] May, Encounter for well woman exam with nessa najera gynecological exam Z01.419 and Anxiety F41.9 [facility] [address] [address] Apr, [facility] [address] [address] Mar, Affective disorder F39 ; Benzodiazepine dependence F13.20 and High risk sexual behavior Z72.51 [facility] [address] [id number] [place] [address] Jan, Dyspepsia R10.13 ; Gastroesophageal refl ux disease without esophagitis K21.9 and Affective disorder F39 [facility] [address] [address] Jan, Affective disorder F39 [facility] [address] [address] 10 Dec, 2016 Moderate episode of recurrent major depr essive disorder F33.1 [facility] [address] [address] 14 Nov, 2016 Unspecified episodic mood disorder F39 a nd Essential hypertension I10 [facility] [address] [address] 02 Nov, 2016 Affective disorder F39 ; Anxiety F41.9 a nd Unspecified episodic mood disorder F39 [facility] [address] [address] Oct, [facility] [address] [address] Oct, [facility] [address] [place], [place] [address] 57 Sep, Dysuria R30.0 [facility] [address] [address] Sep, [facility] [address] [address] Aug, [facility] [address] [address] Aug, [facility] [address] [address] Jul, [facility] [address] [facility] [id number] [address] [place] [address] Jul, Acute non-recurrent maxillar y sinusitis J01.00 and Dysuria R30.0 [facility] [address] [address] Jul, Affective disorder F39 ; Essential hyper tension I10 ; Lumbago with sciatica, unspecified side M54.40 ; Other chronic pain G89.29 and Acute vaginitis N76.0 [facility] [address] [address] Jun, [facility] [address] [address] Jun, [facility] [address] [address] Jun, [facility] [address] [facility] [id number] [address] [place] [address] May, Anxiety F41.9 [facility] [address] [address] May, [facility] [address] [address] May, [facility] [address] [address] Apr, [facility] [address] [address] Apr, Affective disorder F39 [facility] [address] [address] Apr, [facility] [address] [address] Apr, Unspecified episodic mood disorder F39 [facility] [address] [address] Jan, Hypertension I10 [facility] [address] [address] Jan, Benzodiazepine dependence F13.20 and Art hritis M19.90 [facility] [address] [address] Nov, [facility] [address] [address] Jul, Migraine G43.909 ; Hypertension I10 and Arthritis M19.90 [facility] [address] [address] Jun, [facility] [address] [facility] [id number] [place] [address] Jun, [facility] [address] [facility] [id number] [facility] [place] [address] Jun, [facility] [address] [id number] [place] [address] May, [facility] [address] [id number] [place] [address] Jan, [facility] [address] [facility] [id number] [place] [address] Jan, [facility] [address] [id number] [place] [address] Nov, [facility] [address] [id number] [place] [address] Nov, [facility] [address] [id number] [place] [address] Oct, [facility] [address] [id number] [place] [address] Oct, [facility] [address] [id number] [place] [address] Oct, [facility] [address] [id number] [place] [address] Oct, [facility] [address] [id number] [place] [address] Aug, [facility] [address] [id number] [place] [address] Aug, [facility] [address] [id number] [place] [address] Aug, [facility] [address] [id number] [place] [address] Aug, [facility] [address] [id number] [place] [address] Aug, [facility] [address] [id number] [facility] [place] [address] Aug, [facility] [address] [id number] [facility] [place] [address] Aug, [facility] [address] [facility] [id number] [place] [address] May, [facility] [address] [id number] [place] [address] May, [facility] [address] [id number] [place] [address] May, [facility] [address] [id number] [place] [address] May, [facility] [address] [id number] [place] [address] May, [facility] [address] [id number] [place] [address] Apr, [facility] [address] [id number] [place] [address] Apr, [facility] [address] [id number] [place] [address] Apr, [facility] [address] [id number] [place] [address] Apr, [facility] [address] [id number] [place] [address] Apr, [facility] [address] [id number] [place] [address] Apr, [facility] [address] [id number] [place] [address] Apr, [facility] [address] [id number] [place] [address] Apr, [facility] [address] [id number] [place] [address] Mar, [facility] [address] [id number] [place] [address] Mar, [facility] [address] [id number] [place] [address] Mar, [facility] [address] [id number] [place] [address] Mar, [facility] [address] [id number] [place] [address] Mar, [facility] [address] [id number] [place] [address] Mar, [facility] [address] [id number] [place] [address] Mar, [facility] [address] [id number] [place] [address] February, [facility] [address] [id number] [place] [address] February, [facility] [address] [id number] [place] [address] Jan, [facility] [address] [id number] [place] [address] Jan, [facility] [address] [id number] [place] [address] Jan, [facility] [address] [id number] [place] [address] Jan, [facility] [address] [id number] [place] [address] Jan, [facility] [address] [id number] [place] [address] Jan, [facility] [address] [id number] [place] [address] Dec, [facility] [address] [id number] [place] [address] Dec, [facility] [address] [id number] [place] [address] Dec, [facility] [address] [id number] [place] [address] Nov, [facility] [address] [facility] [id number] [place] [address] Nov, [facility] [address] [id number] [place] [address] Nov, [facility] [address] [id number] [place] [address] Nov, [facility] [address] [id number] [place] [address] Oct, [facility] [address] [id number] [place] [address] Oct, [facility] [address] [id number] [place] [address] Oct, [facility] [address] [id number] [place] [address] Oct, [facility] [address] [id number] [place] [address] Oct, [facility] [address] [id number] [place] [address] Oct, [facility] [address] [id number] [place] [address] Sep, [facility] [address] [id number] [place] [address] Sep, [facility] [address] [id number] [place] [address] Aug, [facility] [address] [id number] [place] [address] Aug, [facility] [address] [id number] [place] [address] Aug, [facility] [address] [id number] [place] [address] Aug, [facility] [address] [id number] [place] [address] Jul, [facility] [address] [id number] [place] [address] Jul, [facility] [address] [facility] [place] [id number] [place] [address] Jul, [facility] [address] [id number] [place] [address] Jul, [facility] [address] [id number] [place] [address] Jul, [facility] [address] [id number] [place] [address] Apr, [facility] [address] [id number] [place] [address] Apr, [facility] [address] [id number] [place] [address] Mar, [facility] [address] [id number] [place] [address] Mar, [facility] [address] [id number] [place] [address] February, [facility] [address] [id number] [place] [address] Dec, [facility] [address] [id number] [place] [address] Dec, [facility] [address] [id number] [place] [address] Dec, [facility] [address] [id number] [place] [address] Oct, [facility] [address] [id number] [place] [address] Oct, [facility] [address] [id number] [place] [address] Sep, [facility] [address] [id number] [place] [address] Aug, [facility] [address] [id number] [place] [address] Aug, [facility] [address] [id number] [place] [address] Aug, [facility] [address] [id number] [place] [address] Aug, [facility] [address] [id number] [place] [address] Aug, [facility] [address] [id number] [place] [address] Aug, [facility] [address] [id number] [place] [address] Aug, [facility] [id number] [place] [address] Jul, [facility] [address] [id number] [place] [address] Jul, [facility] [id number] [place] [address] Jul, [facility] [address] [id number] [place] [address] Jun, [facility] [id number] [place] [address] Apr, [facility] [address] [id number] [place] [address] Apr, [facility] [address] [id number] [place] [address] Apr, [facility] [address] [id number] [place] [address] Mar, [facility] [address] [id number] [place] [address] Mar, [facility] [address] [id number] [place] [address] Jan, [facility] [address] [id number] [place] [address] Dec, [facility] [address] [id number] [place] [id number] 15 May, 2011 [facility] [address] [id number] [place] [address] Sep, [facility] [address] [id number] [place] [address] Sep, [facility] [address] [id number] [place] [address] Aug, [facility] [address] [id number] [place] [address] Jul, [facility] [address] [id number] [place] [address] Jul, [facility] [address] [id number] [place] [address] Apr, [facility] [address] [id number] [place] [address] Jan, [facility] [address] [id number] [place] [address] Aug, [facility] [address] [id number] [place] [address] Aug, [facility] [address] [id number] [place] [address] Aug, [facility] [address] [id number] [place] [address] Aug, [facility] [address] [id number] [place] [address] Jul, [facility] [address] [id number] [place] [address] May, [facility] [address] [id number] [place] [address] 15 Apr, 2009 [facility] [address] [id number] [place] [address] February, [facility] [address] [id number] [place] [address] Dec, IMMUNIZATIONS No Known Immunizations SOCIAL HISTORY Never Assessed REASON FOR VISIT PLAN OF CARE VITAL SIGNS Height 67 in 2013-11-02 Weight 177.6 lbs 2013-11-02 Temperature 96.6 degrees Fahrenheit 2013-11-02 Heart Rate 96 bpm 2013-11-02 Respiratory Rate 20 2013-11-02 Blood pressure systolic 146 mmHg 2013-11-02 Blood pressure diastolic 96 mmHg 2013-11-02 MEDICATIONS Unknown Medications RESULTS No Results PROCEDURES No Known procedures INSTRUCTIONS MEDICATIONS ADMINISTERED No Known Medications MEDICAL (GENERAL) HISTORY Type Description Date Medical History migraine headaches Medical History Unspecified backache Medical History Opioid Use Disorder Surgical History Hysterectomy 2003 Surgical History Bladder surgeries x 3 Hospitalization History Pneumonia 2014 Hospitalization History kidney stones 2013 Hospitalization History Suicidal ideation/intentional overdo [facility] 03/16/18 Hospitalization History Behavorial hospitalization [facility] 03/2018
--- OUTSIDE RECORDS SUMMARY | 2020-02-24 12:21 | XMS REPORT ---
Author Author Reena TURCIOS Organization [facility] Address [address] [place] [address] Care Team Providers Care Pie Bottomer Name Role Phone GENEVA TURCIOS Unavailable PROBLEMS Type Condition ICD9-CM Code GVJ79-IP Code Onset Dates Condition S tatus SNOMED Code Problem Hypertension I10 Active 2349927 3 Problem Bipolar II disorder F31.81 Active 92669561 Problem Arthritis M19.90 Active 9277696 Problem Migraine G43.909 Active 77107117 Problem Lumbago with sciatica, unspecified side M54.40 Active 366783281 Problem Other chronic pain G89.29 Active 8 1371741 Problem Anxiety F41.9 Active 38662729 Problem IV drug abuse F19.10 Active 391576 006 Problem Essential hypertension I10 Active 28817928 Problem Opioid use disorder, severe, in early remission, dependenc e F11.21 Active 471212348 Problem Benzodiazepine dependence F13.20 Acti ve 773653207 Problem Moderate episode of recurrent major depressive disorder F33.1 Active 305644106 Problem Affective disorder F39 Active 4 3885915 Problem Gastroesophageal reflux disease without esophagitis K21.9 Active 853986691 Problem Psoriasis L40.9 Active 5679688 ALLERGIES No Information ENCOUNTERS Encounter Location Date Diagnosis [place] [address] [address] 23 Dec, 2019 [facility] [address] [address] Dec, [facility] [address] [address] 17 Dec, 2019 Opioid use disorder, severe, in early re mission, dependence F11.21 [facility] [address] [address] Dec, Opioid use disorder, severe, in early re mission, dependence F11.21 and Bipolar II disorder F31.81 [facility] [address] [id number] [place] [address] 03 Dec, 2019 Encounter for removal of sutures Z48.02 [facility] [address] [id number] [place] [address] Dec, Opioid use disorder, severe, in early re mission, dependence F11.21 [facility] [address] [facility] [id number] [place] [address] Nov, Opioid use disorder, severe, in early remission, dependence F11.21 [facility] [address] [address] 18 Nov, 2019 Lipoma of right upper extremity D17.21 [facility] [address] [place] [id number] [place] [address] 18 Nov, 2019 Opioid use disorder, severe, in early re mission, dependence F11.21 [facility] [address] [place] [id number] [place] [address] 13 Nov, 2019 [facility] [address] [address] Nov, [facility] [address] [address] Nov, Opioid use disorder, severe, in early re mission, dependence F11.21 [facility] [address] [address] [id number] [place] [address] 04 Nov, 2019 Opioid use disorder, severe, in early re mission, dependence F11.21 [facility] [address] [address] [id number] [place] [address] Oct, [facility] [address] [address] Oct, [facility] [address] [address] Oct, [facility] [address] [address] Oct, Opioid use disorder, severe, in early re mission, dependence F11.21 [place] [address] [place] [address] 24 Oct, 2019 Opioid use disorder, severe, in early re mission, dependence F11.21 and Bipolar II disorder F31.81 [place] [address] [place] [id number] Oct, [place] [address] [place] [address] Oct, Opioid use disorder, severe, in early re mission, dependence F11.21 and Bipolar II disorder F31.81 [place] [address] [place] [address] 14 Oct, 2019 Opioid use disorder, severe, in early re mission, dependence F11.21 [place] [address] [address] 08 Oct, 2019 Opioid use disorder, severe, in early re mission, dependence F11.21 ; Psoriasis L40.9 ; Lipoma of right upper extremity D17.21 and Abscess L02.91 [place] [address] [place] [id number] Sep, Opioid use disorder, severe, in early re mission, dependence F11.21 and Benzodiazepine dependence F13.20 [place] [address] [address] Sep, Opioid use disorder, severe, in early re mission, dependence F11.21 and Bipolar II disorder F31.81 [place] [address] [address] Sep, Opioid use disorder, severe, in early re mission, dependence F11.21 [place] [address] [place] [id number] Sep, Opioid use disorder, severe, in early re mission, dependence F11.21 and Bipolar II disorder F31.81 [place] [address] [place] [id number] Sep, Opioid use disorder, severe, in early re mission, dependence F11.21 [facility] [address] [place] [address] Aug, Opioid use disorder, severe, in early re mission, dependence F11.21 and Bipolar II disorder F31.81 [facility] [address] [place] [address] Aug, Opioid use disorder, severe, in early re mission, dependence F11.21 [facility] [address] [address] Aug, Opioid use disorder, severe, in early re mission, dependence F11.21 [facility] [address] [place] [address] Aug, Opioid use disorder, severe, in early re mission, dependence F11.21 [facility] [address] [place] [address] Jul, Opioid use disorder, severe, in early re mission, dependence F11.21 [facility] [address] [address] Jul, Opioid use disorder, severe, in early re mission, dependence F11.21 [facility] [address] [address] Jul, Opioid use disorder, severe, in early re mission, dependence F11.21 [facility] [address] [address] Jul, Opioid use disorder, severe, in early re mission, dependence F11.21 [facility] [address] [place] [id number] Jul, Opioid use disorder, severe, in early re mission, dependence F11.21 [facility] [address] [address] Jul, Opioid use disorder, severe, in early re mission, dependence F11.21 [facility] [address] [address] Jul, Opioid use disorder, severe, in early re mission, dependence F11.21 [facility] [address] [address] Jul, Opioid use disorder, severe, in early re mission, dependence F11.21 [facility] [address] [address] Jul, [facility] [address] [address] Jul, [facility] [address] [address] Jun, Opioid use disorder, severe, in early re mission, dependence F11.21 [facility] [address] [address] Jun, Opioid use disorder, severe, in early re mission, dependence F11.21 [facility] [address] [address] Jun, [facility] [address] [address] Jun, [facility] [address] [address] Jun, Bipolar II disorder F31.81 ; IV drug abu se F19.10 and Opioid use disorder, severe, in early remission, dependence F11.21 [facility] [address] [address] Jun, [facility] [address] [address] May, [facility] [address] [address] May, Bipolar II disorder F31.81 [facility] [address] [address] May, Bipolar II disorder F31.81 and Hypertens ion I10 [facility] [address] [address] Apr, [facility] [address] [place], [place] [address] 57 February, IV drug abuse F19.10 ; Screen for STD (sexually transmitted disease) Z11.3 and Unprotected sex Z72.51 [facility] [address] [address] Dec, [facility] [address] [address] Jul, Moderate episode of recurrent major depr essive disorder F33.1 [place] [address] [address] May, [facility] [address] [address] Apr, Moderate episode of recurrent major depr essive disorder F33.1 [facility] [address] [address] Apr, Moderate episode of recurrent major depr essive disorder F33.1 [facility] [address] [address] Apr, [facility] [address] [address] Apr, Moderate episode of recurrent major depr essive disorder F33.1 [facility] [address] [address] Mar, [facility] [address] [address] Mar, Moderate episode of recurrent major depr essive disorder F33.1 and Hypertension I10 [facility] [address] [address] Mar, Bipolar II disorder F31.81 [facility] [address] [address] February, [facility] [address] [place] [address] [place] [address] February, [facility] [address] [place] [id number] [place] [address] February, [facility] [address] [place] [id number] [place] [address] Dec, [facility] [address] [place] [id number] [place] [address] Nov, Psoriasis L40.9 [facility] [address] [address] Nov, [facility] [address] [place] [id number] [place] [address] Nov, Anxiety F41.9 [facility] [address] [address] Oct, [facility] [address] [address] Oct, [facility] [address] [place] [id number] [place] [address] Oct, [facility] [address] [place] [address] [id number] [place] [address] Oct, [facility] [address] [address] Sep, [facility] [address] [place] [address] [id number] [place] [address] Sep, [facility] [address] [id number] [place] [id number] Aug, Dental examination Z01.20 and Dental car ies K02.9 [facility] [address] [id number] [place] [address] Aug, [facility] [address] [address] Jul, [facility] [address] [id number] [place] [address] Jul, [facility] [address] [address] Jul, Moderate episode of recurrent major depr essive disorder F33.1 [facility] [address] [address] Jun, Moderate episode of recurrent major depr essive disorder F33.1 and Anxiety F41.9 [facility] [address] [address] Jun, [facility] [address] [address] Jun, Anxiety F41.9 [place] [address] [address] Jun, Moderate episode of recurrent major depr essive disorder F33.1 [place] [address] [address] Jun, [place] [address] [address] May, Moderate episode of recurrent major depr essive disorder F33.1 [facility] [address] [facility] [id number] [address] [place] [address] May, [facility] [address] [address] May, Encounter for well woman exam with nessa najera gynecological exam Z01.419 and Anxiety F41.9 [facility] [address] [address] Apr, [place] [address] [address] Mar, Affective disorder F39 ; Benzodiazepine dependence F13.20 and High risk sexual behavior Z72.51 [facility] [address] [address] Jan, Dyspepsia R10.13 ; Gastroesophageal refl ux disease without esophagitis K21.9 and Affective disorder F39 [facility] [address] [place] [address] 03 Jan, 2017 Affective disorder F39 [facility] [address] [address] 10 Dec, 2016 Moderate episode of recurrent major depr essive disorder F33.1 [facility] [address] [address] 14 Nov, 2016 Unspecified episodic mood disorder F39 a nd Essential hypertension I10 [facility] [address] [address] 02 Nov, 2016 Affective disorder F39 ; Anxiety F41.9 a nd Unspecified episodic mood disorder F39 [facility] [address] [address] Oct, [facility] [address] [address] Oct, [facility] [address] [place] [place], [place] [id number] 57 Sep, Dysuria R30.0 [facility] [address] [address] Sep, [facility] [address] [address] Aug, [facility] [address] [address] Aug, [facility] [address] [place] [id number] [place] [address] Jul, [facility] [address] [facility] [id number] [address] [place] [address] Jul, Acute non-recurrent maxillar y sinusitis J01.00 and Dysuria R30.0 [facility] [address] [address] Jul, Affective disorder F39 ; Essential hyper tension I10 ; Lumbago with sciatica, unspecified side M54.40 ; Other chronic pain G89.29 and Acute vaginitis N76.0 [facility] [id number] [place] [address] 22 Jun, 2016 [facility] [address] [address] Jun, [facility] [id number] [place] [address] 15 Jun, 2016 [facility] [address] [facility] [id number] [address] [place] [address] May, Anxiety F41.9 [facility] [id number] [place] [address] May, [facility] [address] [address] May, [facility] [id number] [place] [address] Apr, [facility] [address] [address] Apr, Affective disorder F39 [facility] [id number] [place] [address] Apr, [facility] [address] [address] Apr, Unspecified episodic mood disorder F39 [facility] [id number] [place] [address] Jan, Hypertension I10 [facility] [address] [address] Jan, Benzodiazepine dependence F13.20 and Art hritis M19.90 [facility] [address] [place] [address] [id number] [place] [address] Nov, [facility] [address] [address] Jul, Migraine G43.909 ; Hypertension I10 and Arthritis M19.90 [facility] [address] [address] Jun, [facility] [address] [id number] [place] [address] Jun, [facility] [place] [facility] [address] [id number] [place] [address] Jun, [facility] [place] [facility] [address] [id number] [place] [address] May, [facility] [place] [facility] [address] [id number] [place] [address] Jan, [facility] [place] [facility] [address] [id number] [place] [address] Jan, [facility] [place] [facility] [address] [id number] [place] [address] Nov, [facility] [place] [facility] [address] [id number] [place] [address] Nov, [facility] [place] [facility] [address] [id number] [place] [address] Oct, [facility] [place] [facility] [address] [id number] [place] [address] Oct, [facility] [place] [facility] [address] [id number] [place] [address] Oct, [facility] [place] [facility] [address] [id number] [place] [address] Oct, [facility] [place] [facility] [address] [id number] [place] [address] Aug, [facility] [place] [facility] [address] [id number] [place] [address] Aug, [facility] [place] [facility] [address] [id number] [place] [address] Aug, [facility] [place] [facility] [id number] [place] [address] Aug, [facility] [place] [facility] [address] [id number] [place] [address] Aug, [facility] [place] [facility] [address] [id number] [place] [address] Aug, [facility] [place] [facility] [address] [id number] [place] [address] Aug, [facility] [place] [facility] [address] [id number] [place] [address] May, [facility] [place] [facility] [address] [facility] [id number] [facility] [place] [address] May, [facility] [place] [facility] [address] [id number] [facility] [place] [address] May, [facility] [place] [facility] [address] [facility] [id number] [place] [address] May, [facility] [place] [facility] [address] [id number] [place] [address] May, [facility] [place] [facility] [address] [id number] [place] [address] Apr, [facility] [place] [facility] [address] [id number] [place] [address] Apr, [facility] [place] [facility] [address] [facility] [id number] [facility] [place] [address] Apr, [facility] [place] [facility] [address] [id number] [place] [address] Apr, [facility] [place] [facility] [address] [id number] [place] [address] Apr, [facility] [place] [facility] [address] [id number] [place] [address] Apr, [facility] [place] [facility] [address] [facility] [id number] [place] [address] Apr, [facility] [place] [facility] [address] [facility] [id number] [place] [address] Apr, [facility] [place] [facility] [address] [facility] [id number] [place] [address] Mar, [facility] [place] [facility] [address] [id number] [place] [address] Mar, [facility] [place] [facility] [address] [id number] [facility] [place] [address] Mar, [facility] [place] [facility] [address] [facility] [id number] [facility] [place] [address] Mar, [facility] [place] [facility] [address] [facility] [id number] [place] [address] Mar, [facility] [place] [facility] [address] [id number] [place] [address] Mar, [facility] [place] [facility] [address] [facility] [id number] [place] [address] Mar, [facility] [place] [facility] [address] [facility] [id number] [facility] [place] [address] February, [facility] [place] [facility] [address] [id number] [place] [address] February, [facility] [place] [facility] [address] [id number] [place] [address] Jan, [facility] [place] [facility] [address] [id number] [place] [address] Jan, [facility] [place] [facility] [address] [id number] [place] [address] Jan, [facility] [place] [facility] [address] [id number] [place] [address] Jan, [facility] [place] [facility] [address] [id number] [place] [address] Jan, [facility] [place] [facility] [address] [id number] [place] [address] Jan, [facility] [place] [facility] [address] [facility] [id number] [place] [address] Dec, [facility] [place] [facility] [address] [id number] [place] [address] Dec, [facility] [place] [facility] [address] [id number] [place] [address] Dec, [facility] [place] [facility] [address] [id number] [place] [address] Nov, [facility] [place] [facility] [address] [id number] [place] [address] 17 Nov, 2013 [facility] [place] [facility] [address] [id number] [place] [address] Nov, [facility] [place] [facility] [address] [id number] [place] [address] Nov, [facility] [place] [facility] [address] [id number] [place] [address] Oct, [facility] [place] [facility] [address] [id number] [place] [address] Oct, [facility] [place] [facility] [address] [id number] [place] [address] Oct, [facility] [place] [facility] [address] [id number] [place] [address] Oct, [facility] [place] [facility] [id number] [place] [address] Oct, [facility] [place] [facility] [address] [id number] [place] [id number] Oct, [facility] [address] [id number] [place] [id number] Sep, [facility] [address] [id number] [place] [id number] Sep, [facility] [address] [id number] [place] [address] Aug, [facility] [address] [id number] [place] [id number] Aug, [facility] [address] [id number] [place] [id number] Aug, [facility] [id number] [place] [id number] Aug, [facility] [address] [id number] [place] [id number] Jul, [facility] [address] [id number] [place] [id number] Jul, [facility] [address] [facility] [id number] [place] [address] Jul, [facility] [address] [facility] [id number] [place] [id number] Jul, [facility] [address] [id number] [place] [id number] Jul, [facility] [address] [id number] [place] [address] Apr, [facility] [address] [facility] [id number] [place] [address] Apr, [facility] [address] [id number] [place] [address] Mar, [facility] [address] [id number] [place] [id number] Mar, [facility] [address] [id number] [place] [id number] February, [facility] [address] [id number] [place] [id number] Dec, [facility] [address] [id number] [place] [id number] Dec, [facility] [address] [id number] [place] [id number] Dec, [facility] [address] [id number] [place] [id number] Oct, [facility] [address] [id number] [place] [address] Oct, [facility] [address] [id number] [place] [id number] Sep, [facility] [address] [id number] [place] [id number] Aug, [facility] [address] [id number] [place] [id number] Aug, [facility] [address] [id number] [place] [id number] Aug, [facility] [address] [id number] [place] [id number] Aug[facility] [address] [id number] [place] [id number] Aug, [facility] [address] [id number] [place] [id number] Aug, [facility] [address] [id number] [place] [id number] Aug, [facility] [address] [id number] [place] [id number] Jul, [facility] [address] [id number] [place] [id number] Jul, [facility] [address] [id number] [place] [id number] Jul, [facility] [address] [id number] [place] [id number] Jun, [facility] [address] [id number] [place] [id number] Apr, [facility] [address] [id number] [place] [id number] Apr, [facility] [address] [id number] [place] [id number] Apr, [facility] [address] [id number] [place] [id number] Mar, [facility] [address] [id number] [place] [id number] Mar, [facility] [id number] [place] [id number] Jan, [facility] [address] [id number] [place] [id number] Dec, [facility] [address] [id number] [place] [id number] May, [facility] [address] [id number] [place] [address] Sep, [facility] [address] [id number] [place] [address] Sep, [facility] [address] [id number] [place] [address] Aug, [facility] [id number] [place] [address] Jul, [facility] [id number] [place] [address] Jul, [facility] [id number] [place] [address] Apr, [facility] [address] [id number] [place] [address] Jan, [facility] [id number] [place] [address] Aug, [facility] [id number] [place] [address] Aug, [facility] [id number] [place] [address] Aug, [facility] [id number] [place] [address] Aug, [facility] [address] [id number] [place] [address] Jul, [facility] [address] [id number] [place] [address] May, [facility] [address] [id number] [place] [address] Apr, [facility] [id number] [place] [address] February, [facility] [address] [id number] [place] [address] Dec, IMMUNIZATIONS No Known Immunizations SOCIAL HISTORY [...] History kidney stones 2014 Hospitalization History Suicidal ideation/intentional overdo [facility] 03/16/18 [facility]
--- OUTSIDE RECORDS SUMMARY | 2020-02-24 12:21 | XMS REPORT ---
Author Author Reena SHAFFER Organization [facility] Address [address] [place] [address] Care Team Providers Care Information Systems Operator Name Role Phone DEONDRE SHAFFER Unavailable PROBLEMS Type Condition ICD9-CM Code PED08-TJ Code Onset Dates Condition S tatus SNOMED Code Problem Hypertension I10 Active 1194654 3 Problem Bipolar II disorder F31.81 Active 77264097 Problem Arthritis M19.90 Active 9942526 Problem Migraine G43.909 Active 10884500 Problem Lumbago with sciatica, unspecified side M54.40 Active 377293925 Problem Other chronic pain G89.29 Active 8 4674155 Problem Anxiety F41.9 Active 97795480 Problem IV drug abuse F19.10 Active 907527 006 Problem Essential hypertension I10 Active 92914460 Problem Opioid use disorder, severe, in early remission, dependenc e F11.21 Active 196070230 Problem Benzodiazepine dependence F13.20 Acti ve 040922218 Problem Moderate episode of recurrent major depressive disorder F33.1 Active 071369536 Problem Affective disorder F39 Active 4 3772724 Problem Gastroesophageal reflux disease without esophagitis K21.9 Active 535332961 Problem Psoriasis L40.9 Active 2542234 ALLERGIES No Information ENCOUNTERS Encounter Location Date Diagnosis [facility] [address] [facility] [id number] [address] [place] [id number] 23 Dec, 2019 Opioid use disorder, severe, in early remission, dependence F11.21 [facility] [address] [facility] [id number] [address] [place] [id number] 19 Dec, 2019 [facility] [address] [facility] [id number] [address] [place] [id number] 17 Dec, 2019 Opioid use disorder, severe, in early remission, dependence F11.21 [facility] [address] [facility] [id number] [address] [place] [phone] 10 Dec, 2019 Opioid use disorder, severe, in early remission, dependence F11.21 and Bipolar II disorder F31.81 [facility] [address] [facility] [id number] [address] [place] [id number] 03 Dec, 2019 Encounter for removal of sut ures Z48.02 [facility] [address] [facility] [id number] [address] [place] [id number] 03 Dec, 2019 Opioid use disorder, severe, in early remission, dependence F11.21 [facility] [address] [facility] [id number] [address] 25 Nov, 2019 Opioid use disorder, severe, in early remission, dependence F11.21 [facility] [address] [facility] [id number] [address] [place] [phone] 18 Nov, 2019 Lipoma of right upper extrem ity D17.21 [facility] [address] [place] [id number] [address] [place] [phone] 18 Nov, 2019 Opioid use disorder, severe, in early remission, dependence F11.21 [facility] [address] [facility] [id number] [address] [place] [id number] 13 Nov, 2019 [facility] [address] [place] [id number] [address] [place] [phone] Nov, [facility] [address] [facility] [id number] [address] [place] [phone] Nov, Opioid use disorder, severe, in early remission, dependence F11.21 [facility] [address] [facility] [id number] [address] [place] [phone] 04 Nov, 2019 Opioid use disorder, severe, in early remission, dependence F11.21 [facility] [address] [facility] [id number] [address] [place] [id number] Oct, [facility] [address] [facility] [id number] [address] [place] [phone] Oct, [facility] [address] [place] [id number] [address] [place] [phone] Oct, [facility] [address] [facility] [id number] [address] [place] [id number] 28 Oct, 2019 Opioid use disorder, severe, in early remission, dependence F11.21 [place] [address] [facility] [id number] [address] [place] [phone] 24 Oct, 2019 Opioid use disorder, severe, in early remission, dependence F11.21 and Bipolar II disorder F31.81 [facility] [address] [facility] [id number] [address] [place] [phone] Oct, [place] [address] [facility] [id number] [address] [place] [phone] 17 Oct, 2019 Opioid use disorder, severe, in early remission, dependence F11.21 and Bipolar II disorder F31.81 [place] [address] [place] [id number] [address] [place] [id number] 14 Oct, 2019 Opioid use disorder, severe, in early remission, dependence F11.21 [place] [address] [facility] [id number] [address] [place] [phone] 08 Oct, 2019 Opioid use disorder, severe, in early remission, dependence F11.21 ; Psoriasis L40.9 ; Lipoma of right upper extremity D17.21 and Abscess L02.91 [place] [address] [facility] [id number] [address] [place] [phone] Sep, Opioid use disorder, severe, in early remission, dependence F11.21 and Benzodiazepine dependence F13.20 [place] [address] [facility] [id number] [address] [place] [phone] Sep, Opioid use disorder, severe, in early remission, dependence F11.21 and Bipolar II disorder F31.81 [place] [address] [facility] [id number] [address] [place] [phone] Sep, Opioid use disorder, severe, in early remission, dependence F11.21 [place] [address] [place] [id number] [address] [place] [phone] Sep, Opioid use disorder, severe, in early remission, dependence F11.21 and Bipolar II disorder F31.81 [facility] [address] [facility] [id number] [address] [place] [phone] Sep, Opioid use disorder, severe, in early remission, dependence F11.21 [facility] [address] [facility] [id number] [address] [place] [phone] Aug, Opioid use disorder, severe, in early remission, dependence F11.21 and Bipolar II disorder F31.81 [facility] [address] [facility] [id number] [address] [place] [phone] Aug, Opioid use disorder, severe, in early remission, dependence F11.21 [facility] [address] [facility] [id number] [address] [place] [phone] Aug, Opioid use disorder, severe, in early remission, dependence F11.21 [facility] [address] [facility] [id number] [address] [place] [phone] Aug, Opioid use disorder, severe, in early remission, dependence F11.21 [facility] [address] [facility] [id number] [address] [place] [address] Jul, Opioid use disorder, severe, in early remission, dependence F11.21 [facility] [address] [facility] [id number] [address] [place] [id number] Jul, Opioid use disorder, severe, in early remission, dependence F11.21 [facility] [address] [facility] [id number] [address] [place] [id number] Jul, Opioid use disorder, severe, in early remission, dependence F11.21 [facility] [address] [facility] [id number] [address] [place] [phone] Jul, Opioid use disorder, severe, in early remission, dependence F11.21 [facility] [address] [facility] [id number] [address] [place] [id number] Jul, Opioid use disorder, severe, in early remission, dependence F11.21 [facility] [address] [facility] [id number] [address] [place] [address] Jul, Opioid use disorder, severe, in early remission, dependence F11.21 [facility] [address] [id number] [address] [place] [address] Jul, Opioid use disorder, severe, in early remission, dependence F11.21 [facility] [address] [id number] [address] [place] [phone] Jul, Opioid use disorder, severe, in early remission, dependence F11.21 [facility] [address] [facility] [id number] [address] [place] [phone] Jul, [facility] [address] [facility] [id number] [address] [place] [phone] Jul, [facility] [address] [facility] [id number] [address] [place] [phone] Jun, Opioid use disorder, severe, in early remission, dependence F11.21 [facility] [address] [id number] [address] [place] [phone] Jun, Opioid use disorder, severe, in early remission, dependence F11.21 [facility] [address] [facility] [id number] [address] [place] [phone] Jun, [facility] [address] [facility] [id number] [address] [place] [phone] Jun, [facility] [address] [facility] [id number] [address] [place] [phone] Jun, Bipolar II disorder F31.81 ; IV drug abuse F19.10 and Opioid use disorder, severe, in early remission, dependence F11.21 [facility] [address] [id number] [address] [place] [phone] Jun, [facility] [address] [facility] [id number] [address] [place] [phone] May, [facility] [address] [id number] [address] [place] [phone] May, Bipolar II disorder F31.81 [facility] [address] [id number] [address] [place] [phone] May, Bipolar II disorder F31.81 a nd Hypertension I10 [facility] [address] [facility] [id number] [address] [place] [phone] Apr, [facility] [address] [place], [place] [id number] 57 February, IV drug abuse F19.10 ; Screen for STD (sexually transmitted disease) Z11.3 and Unprotected sex Z72.51 [facility] [address] [id number] [address] [place] [phone] Dec, [facility] [address] [facility] [id number] [address] [place] [phone] Jul, Moderate episode of recurren t major depressive disorder F33.1 [facility] [address] [id number] [address] [place] [phone] May, [facility] [address] [id number] [address] [place] [phone] Apr, Moderate episode of recurren t major depressive disorder F33.1 [facility] [address] [id number] [address] [place] [phone] Apr, Moderate episode of recurren t major depressive disorder F33.1 [facility] [address] [id number] [address] [place] [phone] Apr, [facility] [address] [id number] [address] [place] [phone] Apr, Moderate episode of recurren t major depressive disorder F33.1 [facility] [address] [id number] [address] [place] [phone] Mar, [facility] [address] [facility] [id number] [address] [place] [phone] Mar, Moderate episode of recurren t major depressive disorder F33.1 and Hypertension I10 [facility] [address] [id number] [address] [place] [id number] Mar, Bipolar II disorder F31.81 [facility] [address] [id number] [address] [place] [phone] February, [facility] [address] [id number] [address] [place] [phone] February, [facility] [address] [id number] [address] [place] [phone] February, [facility] [address] [id number] [address] [place] [phone] Dec, [facility] [address] [facility] [id number] [address] [place] [phone] Nov, Psoriasis L40.9 [facility] [address] [id number] [address] [place] [phone] Nov, [facility] [address] [id number] [address] [place] [phone] Nov, Anxiety F41.9 [facility] [address] [facility] [id number] [address] [place] [phone] Oct, [facility] [address] [id number] [address] [place] [phone] Oct, [facility] [address] [id number] [address] [place] [phone] Oct, [facility] [address] [id number] [address] [place] [phone] Oct, [facility] [address] [facility] [id number] [address] [place] [phone] Sep, [facility] [address] [facility] [id number] [address] [place] [phone] Sep, [facility] [address] [id number] [address] [place] [id number] 16 Aug, 2017 Dental examination Z01.20 an d Dental caries K02.9 [facility] [address] [id number] [address] [place] [phone] Aug, [facility] [address] [id number] [address] [place] [phone] Jul, [facility] [address] [id number] [address] [place] [phone] Jul, [facility] [address] [id number] [address] [place] [phone] Jul, Moderate episode of recurren t major depressive disorder F33.1 [facility] [address] [id number] [address] [place] [phone] Jun, Moderate episode of recurren t major depressive disorder F33.1 and Anxiety F41.9 [facility] [address] [id number] [address] [place] [id number] 14 Jun, 2017 [facility] [address] [id number] [address] [place] [address] Jun, Anxiety F41.9 [facility] [address] [id number] [address] [place] [phone] Jun, Moderate episode of recurren t major depressive disorder F33.1 [facility] [address] [id number] [address] [place] [phone] Jun, [facility] [address] [id number] [address] [place] [phone] May, Moderate episode of recurren t major depressive disorder F33.1 [facility] [address] [id number] [address] [place] [phone] May, [facility] [address] [id number] [address] [place] [phone] May, Encounter for well woman exa m with routine gynecological exam Z01.419 and Anxiety F41.9 [facility] [address] [place] [id number] [address] [place] [phone] Apr, [facility] [id number] [place] [address] Mar, Affective disorder F39 ; [place] zodiazepine dependence F13.20 and High risk sexual behavior Z72.51 [place] [address] [place] [id number] [address] [place] [phone] Jan, Dyspepsia R10.13 ; Gastroeso phageal reflux disease without esophagitis K21.9 and Affective disorder F39 [place] [address] [place] [id number] [address] [place] [phone] Jan, Affective disorder F39 [place] [address] [place] [id number] [place] [address] Dec, Moderate episode of recurren t major depressive disorder F33.1 [place] [address] [place] [id number] [address] [place] [phone] 14 Nov, 2016 Unspecified episodic mood di sorder F39 and Essential hypertension I10 [place] [address] [place] [id number] [address] [place] [phone] 02 Nov, 2016 Affective disorder F39 ; Anx iety F41.9 and Unspecified episodic mood disorder F39 [place] [address] [place] [id number] [address] [place] [phone] Oct, [place] [address] [place] [id number] [address] [place] [phone] Oct, [facility] [address] [place], [place] [id number] 57 Sep, Dysuria R30.0 [place] [address] [place] [id number] [address] [place] [phone] Sep, [place] [address] [place] [id number] [address] [place] [phone] Aug, [place] [address] [place] [id number] [address] [place] [address] Aug, [facility] [address] [id number] [address] [place] [phone] Jul, [facility] [address] [id number] [address] [place] [id number] Jul, Acute non-recurrent maxillar y sinusitis J01.00 and Dysuria R30.0 [facility] [address] [id number] [address] [place] [id number] Jul, Affective disorder F39 ; Ess ential hypertension I10 ; Lumbago with sciatica, unspecified side M54.40 ; Other chronic pain G89.29 and Acute vaginitis N76.0 [facility] [address] [id number] [address] [place] [phone] Jun, [facility] [address] [facility] [id number] [address] [place] [phone] Jun, [facility] [address] [id number] [address] [place] [phone] Jun, [facility] [address] [facility] [id number] [address] [place] [phone] May, Anxiety F41.9 [facility] [address] [facility] [id number] [address] [place] [phone] May, [facility] [address] [facility] [id number] [address] [place] [phone] May, [facility] [address] [facility] [id number] [address] [place] [phone] Apr, [facility] [address] [facility] [id number] [address] [place] [phone] Apr, Affective disorder F39 [facility] [address] [facility] [id number] [address] [place] [phone] Apr, [facility] [address] [facility] [id number] [address] [place] [phone] Apr, Unspecified episodic mood di sorder F39 [facility] [address] [facility] [id number] [address] [place] [phone] Jan, Hypertension I10 [facility] [address] [facility] [id number] [address] [place] [id number] 05 Jan, 2016 Benzodiazepine dependence F1 3.20 and Arthritis M19.90 [facility] [address] [facility] [id number] [address] [place] [address] Nov, [facility] [address] [facility] [id number] [address] [place] [phone] Jul, Migraine G43.909 ; Hypertens ion I10 and Arthritis M19.90 [facility] [address] [facility] [id number] [address] [place] [phone] Jun, [facility] [address] [place] [id number] [address] [place] [phone] Jun, [facility] [address] [facility] [id number] [address] [place] [phone] Jun, [facility] [address] [facility] [id number] [address] [place] [phone] May, [facility] [address] [facility] [id number] [address] [place] [id number] Jan, [facility] [address] [facility] [id number] [address] [place] [phone] Jan, [facility] [address] [facility] [id number] [address] [place] [id number] Nov, [facility] [address] [facility] [id number] [address] [place] [phone] Nov, [facility] [address] [facility] [id number] [address] [place] [phone] Oct, [facility] [address] [facility] [id number] [address] [place] [phone] Oct, [facility] [address] [id number] [address] [place] [address], [place] [phone] Oct, [facility] [address] [id number] [address] [place] [address], [place] [phone] Oct, [facility] [address] [id number] [address] [place] [address], [place] [phone] Aug, [facility] [address] [id number] [address] [place] [address], [place] [phone] Aug, [facility] [address] [id number] [address] [place] [address], [place] [address] Aug, [facility] [address] [id number] [address] [place] [address], [place] [address] Aug, [facility] [address] [id number] [address] [place] [address], [place] [address] Aug, [facility] [address] [id number] [address] [place] [address], [place] [address] Aug, [facility] [address] [id number] [address] [place] [address], [place] [address] Aug, [facility] [address] [id number] [address] [place] [address], [place] [address] May, [facility] [address] [id number] [address] [place] [address], [place] [id number] May, [facility] [address] [id number] [address] [place] [address], [place] [address] May, [facility] [address] [id number] [address] [place] [address], [place] [address] May, [facility] [address] [id number] [address] [place] [address], [place] [address] May, [facility] [address] [id number] [address] [place] [address], [place] [address] Apr, [facility] [address] [id number] [address] [place] [address], [place] [address] Apr, [facility] [address] [id number] [facility] [place] [address] Apr, [facility] [address] [id number] [address] [place] [address], [place] [address] Apr, [facility] [address] [id number] [address] [place] [address], [place] [address] Apr, [facility] [address] [id number] [address] [place] [address], [place] [address] Apr, [facility] [address] [id number] [address] [place] [address], [place] [address] Apr, [facility] [address] [id number] [address] [place] [address], [place] [address] Apr, [facility] [address] [id number] [address] [place] [address], [place] [address] Mar, [facility] [address] [id number] [address] [place] [address], [place] [address] Mar, [facility] [address] [id number] [address] [place] [address], [place] [address] Mar, [facility] [address] [id number] [address] [place] [address], [place] [address] Mar, [facility] [address] [id number] [address] [place] [address], [place] [address] Mar, [facility] [address] [id number] [address] [place] [address], [place] [address] Mar, [facility] [address] [id number] [address] [place] [address], [place] [address] Mar, [facility] [address] [id number] [address] [place] [address], [place] [address] February, [facility] [address] [id number] [address] [place] [address], [place] [address] February, [facility] [address] [id number] [facility] [place] [address] Jan, [facility] [address] [id number] [address] [place] [address], [place] [address] Jan, [facility] [address] [id number] [facility] [place] [address] Jan, [facility] [address] [id number] [address] [place] [address], [place] [address] Jan, [facility] [address] [id number] [address] [place] [address], [place] [address] Jan, [facility] [address] [id number] [address] [place] [address], [place] [address] Jan, [facility] [address] [id number] [address] [place] [address], [place] [address] Dec, [facility] [address] [id number] [address] [place] [address], [place] [address] Dec, [facility] [address] [id number] [address] [place] [address], [place] [address] Dec, [facility] [address] [id number] [address] [place] [address], [place] [address] Nov, [facility] [address] [id number] [address] [place] [address], [place] [address] Nov, [facility] [address] [id number] [address] [place] [address], [place] [address] Nov, [facility] [address] [id number] [address] [place] [address], [place] [address] Nov, [facility] [address] [id number] [address] [place] [address], [place] [address] Oct, [facility] [address] [id number] [address] [place] [address], [place] [address] Oct, [facility] [address] [id number] [address] [place] [address], [place] [address] Oct, [facility] [address] [id number] [address] [place] [address], [place] [address] Oct, [facility] [address] [id number] [address] [place] [address], [place] [address] Oct, [facility] [address] [id number] [address] [place] [address] Oct, [facility] [address] [id number] [address] [place] [address] Sep, [facility] [address] [id number] [address] [place] [address], [place] [address] Sep, [facility] [address] [id number] [address] [place] [address] Aug, [facility] [address] [id number] [address] [place] [address], [place] [address] Aug, [facility] [address] [id number] [address] [place] [address], [place] [address] Aug, [facility] [address] [id number] [address] [place] [address], [place] [address] Aug, [facility] [address] [id number] [address] [place] [address], [place] [address] Jul, [facility] [address] [id number] [address] [place] [address] Jul, [facility] [address] [id number] [address] [place] [address] Jul, [facility] [address] [id number] [address] [place] [address], [place] [address] Jul, [facility] [address] [id number] [address] [place] [address] Jul, [facility] [address] [id number] [address] [place] [address] Apr, [facility] [address] [id number] [address] [place] [address], [place] [address] 10 Apr, 2013 [facility] [address] [id number] [address] [place] [address], [place] [address] Mar, [facility] [address] [id number] [address] [place] [address], [place] [address] Mar, [facility] [address] [id number] [address] [place] [address], [place] [address] February, [facility] [address] [id number] [address] [place] [address], [place] [address] Dec, [facility] [address] [id number] [address] [place] [address], [place] [address] Dec, [facility] [address] [id number] [address] [place] [address], [place] [address] Dec, [facility] [address] [id number] [address] [place] [address], [place] [address] Oct, [facility] [address] [id number] [address] [place] [address], [place] [address] Oct, [facility] [address] [id number] [address] [place] [address], [place] [address] Sep, [facility] [address] [id number] [address] [place] [address], [place] [address] Aug, [facility] [address] [id number] [address] [place] [address], [place] [address] Aug, [facility] [address] [id number] [address] [place] [address], [place] [address] Aug, [facility] [address] [id number] [address] [place] [address], [place] [address] Aug, [facility] [address] [id number] [address] [place] [address], [place] [address] Aug, [facility] [address] [id number] [address] [place] [address], [place] [address] Aug, [facility] [address] [id number] [address] [place] [address], [place] [address] Aug, [facility] [address] [id number] [address] [place] [address], [place] [address] Jul, [facility] [address] [id number] [address] [place] [address], [place] [address] Jul, [facility] [address] [id number] [address] [place] [address], [place] [address] Jul, [facility] [address] [id number] [address] [place] [address], [place] [address] Jun, [facility] [address] [id number] [address] [place] [address], [place] [address] Apr, [facility] [address] [id number] [address] [place] [address], [place] [address] 17 Apr, 2012 [facility] [address] [id number] [address] [place] [address], [place] [address] Apr, [facility] [address] [id number] [address] [place] [address], [place] [address] Mar, [facility] [address] [id number] [address] [place] [address], [place] [address] Mar, [facility] [address] [id number] [address] [place] [address], [place] [address] Jan, [facility] [address] [id number] [address] [place] [address], [place] [address] Dec, [facility] [address] [id number] [address] [place] [address], [place] [address] May, [facility] [address] [id number] [address] [place] [address], [place] [address] Sep, [facility] [address] [id number] [address] [place] [address], [place] [address] 16 Sep, 2010 [facility] [address] [id number] [address] [place] [address] Aug, [facility] [address] [id number] [address] [place] [address] Jul, [facility] [address] [id number] [address] [place] [address] Jul, [facility] [address] [id number] [address] [place] [address] Apr, [facility] [address] [id number] [address] [place] [address] Jan, [facility] [address] [id number] [address] [place] [address] Aug, [facility] [address] [id number] [address] [place] [address] Aug, [facility] [address] [id number] [address] [place] [address] Aug, [facility] [address] [id number] [address] [place] [address] Aug, [facility] [address] [id number] [address] [place] [address] Jul, [facility] [address] [id number] [address] [place] [address] May, [facility] [address] [id number] [address] [place] [address] Apr, [facility] [address] [id number] [address] [place] [address] February, [facility] [address] [id number] [address] [place] [address] Dec, IMMUNIZATIONS No Known Immunizations SOCIAL HISTORY [...] stones 2013 Hospitalization History Suicidal ideation/intentional overdo [facility] 03/16/18 Hospitalization History Behavorial hospitalization [facility] 03/2018
[2020-02-24 12:22] LABS: CHLORIDE 100 MMOL/L (98-107); SODIUM 136 MMOL/L (135-145)
--- OUTSIDE RECORDS SUMMARY | 2020-02-24 12:22 | XMS REPORT ---
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 Name Role Phone DEONDRE SHAFFER Unavailable PROBLEMS Type Condition ICD9-CM Code QHD44-DB Code Onset Dates Condition S tatus SNOMED Code Problem Hypertension I10 Active 2580112 3 Problem Bipolar II disorder F31.81 Active 66668420 Problem Arthritis M19.90 Active 0673007 Problem Migraine G43.909 Active 46041381 Problem Lumbago with sciatica, unspecified side M54.40 Active 135527234 Problem Other chronic pain G89.29 Active 8 0425158 Problem Anxiety F41.9 Active 60368341 Problem IV drug abuse F19.10 Active 077692 006 Problem Essential hypertension I10 Active 78274414 Problem Opioid use disorder, severe, in early remission, dependenc e F11.21 Active 248192516 Problem Benzodiazepine dependence F13.20 Acti ve 114312945 Problem Moderate episode of recurrent major depressive disorder F33.1 Active 293164631 Problem Affective disorder F39 Active 4 5740418 Problem Gastroesophageal reflux disease without esophagitis K21.9 Active 476884922 Problem Psoriasis L40.9 Active 0838028 ALLERGIES No Information ENCOUNTERS Encounter Location Date Diagnosis [place] [address] [address] Dec, [facility] [address] [address] 17 Dec, 2019 Opioid use disorder, severe, in early re mission, dependence F11.21 [place] [address] [address] Dec, Opioid use disorder, severe, in early re mission, dependence F11.21 and Bipolar II disorder F31.81 [place] [address] [address] 03 Dec, 2019 Encounter for removal of sutures Z48.02 [facility] [address] [id number] [place] [address] 03 Dec, 2019 Opioid use disorder, severe, in early re mission, dependence F11.21 [facility] [address] [facility] [id number] [place] [address] 25 Nov, 2019 Opioid use disorder, severe, in early remission, dependence F11.21 [facility] [address] [place] [id number] [place] [address] 18 Nov, 2019 Lipoma of right upper extremity D17.21 [facility] [address] [place] [id number] [place] [address] 18 Nov, 2019 Opioid use disorder, severe, in early re mission, dependence F11.21 [facility] [address] [place] [id number] [place] [address] 13 Nov, 2019 [facility] [address] [id number] [place] [address] Nov, [facility] [address] [place] [place] [id number] [place] [address] Nov, Opioid use disorder, severe, in early re mission, dependence F11.21 [facility] [address] [place] [id number] [place] [address] 04 Nov, 2019 Opioid use disorder, severe, in early re mission, dependence F11.21 [facility] [address] [place] [id number] [place] [address] Oct, [facility] [address] [place] [id number] [place] [address] Oct, [facility] [address] [place] [id number] [place] [address] Oct, [facility] [address] [place] [id number] [place] [address] Oct, Opioid use disorder, severe, in early re mission, dependence F11.21 [facility] [address] [place] [address] 24 Oct, 2019 Opioid use disorder, severe, in early re mission, dependence F11.21 and Bipolar II disorder F31.81 [place] [address] [place] [address] Oct, [place] [address] [address] 17 Oct, 2019 Opioid use disorder, severe, in early re mission, dependence F11.21 and Bipolar II disorder F31.81 [place] [address] [address] 14 Oct, 2019 Opioid use disorder, severe, in early re mission, dependence F11.21 [place] [address] [address] 08 Oct, 2019 Opioid use disorder, severe, in early re mission, dependence F11.21 ; Psoriasis L40.9 ; Lipoma of right upper extremity D17.21 and Abscess L02.91 [place] [address] [address] Sep, Opioid use disorder, severe, in early re mission, dependence F11.21 and Benzodiazepine dependence F13.20 [place] [address] [address] Sep, Opioid use disorder, severe, in early re mission, dependence F11.21 and Bipolar II disorder F31.81 [place] [address] [address] Sep, Opioid use disorder, severe, in early re mission, dependence F11.21 [place] [address] [address] Sep, Opioid use disorder, severe, in early re mission, dependence F11.21 and Bipolar II disorder F31.81 [place] [address] [address] Sep, Opioid use disorder, severe, in early re mission, dependence F11.21 [place] [address] [address] Aug, Opioid use disorder, severe, in early re mission, dependence F11.21 and Bipolar II disorder F31.81 [facility] [address] [place] [address] Aug, Opioid use disorder, severe, in early re mission, dependence F11.21 [facility] [address] [place] [address] 14 Aug, 2019 Opioid use disorder, severe, in early re mission, dependence F11.21 [facility] [address] [place] [address] 07 Aug, 2019 Opioid use disorder, severe, in early re mission, dependence F11.21 [facility] [address] [address] 31 Jul, 2019 Opioid use disorder, severe, in early re mission, dependence F11.21 [facility] [address] [address] Jul, Opioid use disorder, severe, in early re mission, dependence F11.21 [facility] [address] [address] Jul, Opioid use disorder, severe, in early re mission, dependence F11.21 [facility] [address] [address] Jul, Opioid use disorder, severe, in early re mission, dependence F11.21 [facility] [address] [address] Jul, Opioid use disorder, severe, in early re mission, dependence F11.21 [facility] [address] [address] Jul, Opioid use disorder, severe, in early re mission, dependence F11.21 [facility] [address] [address] Jul, Opioid use disorder, severe, in early re mission, dependence F11.21 [facility] [address] [address] Jul, Opioid use disorder, severe, in early re mission, dependence F11.21 [facility] [address] [address] Jul, [facility] [address] [address] Jul, [facility] [address] [address] Jun, Opioid use disorder, severe, in early re mission, dependence F11.21 [facility] [address] [address] Jun, Opioid use disorder, severe, in early re mission, dependence F11.21 [facility] [address] [address] Jun, [facility] [address] [address] Jun, [facility] [address] [address] Jun, Bipolar II disorder F31.81 ; IV drug abu se F19.10 and Opioid use disorder, severe, in early remission, dependence F11.21 [facility] [address] [address] Jun, [facility] [address] [address] May, [facility] [address] [address] May, Bipolar II disorder F31.81 [facility] [address] [address] May, Bipolar II disorder F31.81 and Hypertens ion I10 [facility] [address] [address] Apr, [facility] [address] [place] [address] 57 February, IV drug abuse F19.10 ; Screen for STD (sexually transmitted disease) Z11.3 and Unprotected sex Z72.51 [facility] [address] [address] Dec, [facility] [address] [address] Jul, Moderate episode of recurrent major depr essive disorder F33.1 [facility] [address] [address] May, [place] [address] [address] Apr, Moderate episode of recurrent major depr essive disorder F33.1 [place] [address] [address] Apr, Moderate episode of recurrent major depr essive disorder F33.1 [facility] [address] [address] Apr, [facility] [address] [address] Apr, Moderate episode of recurrent major depr essive disorder F33.1 [facility] [address] [address] Mar, [facility] [address] [address] Mar, Moderate episode of recurrent major depr essive disorder F33.1 and Hypertension I10 [facility] [address] [address] Mar, Bipolar II disorder F31.81 [facility] [address] [address] February, [facility] [address] [address] February, [facility] [address] [address] February, [facility] [address] [address] Dec, [facility] [address] [address] Nov, Psoriasis L40.9 [facility] [address] [address] Nov, [facility] [address] [address] Nov, Anxiety F41.9 [facility] [address] [address] Oct, [facility] [address] [address] Oct, [facility] [address] [address] Oct, [facility] [address] [address] Oct, [facility] [address] [address] Sep, [facility] [address] [address] Sep, [facility] [address] [id number] Aug, Dental examination Z01.20 and Dental car ies K02.9 [facility] [address] [address] Aug, [facility] [address] [address] Jul, [facility] [address] [address] Jul, [facility] [address] [address] Jul, Moderate episode of recurrent major depr essive disorder F33.1 [facility] [address] [id number] [place] [address] 18 Jun, 2017 Moderate episode of recurrent major depr essive disorder F33.1 and Anxiety F41.9 [facility] [address] [id number] [place] [address] 14 Jun, 2017 [facility] [address] [place] [id number] [place] [address] Jun, Anxiety F41.9 [facility] [address] [address] Jun, Moderate episode of recurrent major depr essive disorder F33.1 [facility] [address] [address] Jun, [facility] [address] [place] [id number] [place] [address] May, Moderate episode of recurrent major depr essive disorder F33.1 [facility] [address] [facility] [id number] [place] [address] May, [facility] [address] [place] [id number] [place] [address] May, Encounter for well woman exam with nessa najera gynecological exam Z01.419 and Anxiety F41.9 [facility] [address] [address] Apr, [facility] [address] [address] Mar, Affective disorder F39 ; Benzodiazepine dependence F13.20 and High risk sexual behavior Z72.51 [facility] [address] [address] Jan, Dyspepsia R10.13 ; Gastroesophageal refl ux disease without esophagitis K21.9 and Affective disorder F39 [facility] [address] [address] Jan, Affective disorder F39 [facility] [address] [address] 10 Dec, 2016 Moderate episode of recurrent major depr essive disorder F33.1 [facility] [address] [address] 14 Nov, 2016 Unspecified episodic mood disorder F39 a nd Essential hypertension I10 [facility] [address] [address] 02 Nov, 2016 Affective disorder F39 ; Anxiety F41.9 a nd Unspecified episodic mood disorder F39 [facility] [address] [address] Oct, [facility] [address] [address] Oct, [facility] [address] [place] [id number] 57 Sep, Dysuria R30.0 [facility] [address] [address] Sep, [facility] [address] [address] Aug, [facility] [address] [address] Aug, [facility] [address] [address] Jul, [facility] [address] [facility] [id number] [address] [place] [address] Jul, Acute non-recurrent maxillar y sinusitis J01.00 and Dysuria R30.0 [facility] [address] [address] Jul, Affective disorder F39 ; Essential hyper tension I10 ; Lumbago with sciatica, unspecified side M54.40 ; Other chronic pain G89.29 and Acute vaginitis N76.0 [facility] [address] [address] Jun, [facility] [address] [place] [address] Jun, [facility] [address] [place] [id number] [place] [address] Jun, [facility] [address] [facility] [id number] [address] [place] [address] May, Anxiety F41.9 [facility] [address] [address] May, [facility] [address] [address] May, [facility] [address] [address] Apr, [facility] [address] [address] Apr, Affective disorder F39 [facility] [address] [address] Apr, [facility] [address] [address] Apr, Unspecified episodic mood disorder F39 [facility] [address] [address] Jan, Hypertension I10 [facility] [address] [address] Jan, Benzodiazepine dependence F13.20 and Art hritis M19.90 [facility] [address] [address] Nov, [facility] [address] [address] Jul, Migraine G43.909 ; Hypertension I10 and Arthritis M19.90 [facility] [address] [place] [id number] [place] [address] Jun, [facility] [address] [address] Jun, [facility] [address] [place] [address] [place] [address] Jun, [facility] [address] [id number] [place] [address] May, [facility] [address] [id number] [place] [address] Jan, [facility] [address] [id number] [place] [address] Jan, [facility] [address] [id number] [place] [address] Nov, [facility] [address] [id number] [place] [address] Nov, [facility] [address] [id number] [place] [address] Oct, [facility] [address] [id number] [place] [address] Oct, [facility] [address] [id number] [place] [address] Oct, [facility] [address] [id number] [place] [address] Oct, [facility] [address] [id number] [place] [address] Aug, [facility] [address] [id number] [place] [address] Aug, [facility] [address] [id number] [place] [address] Aug, [facility] [address] [id number] [place] [address] Aug, [facility] [address] [place] [id number] [place] [address] Aug, [facility] [address] [id number] [place] [address] Aug, [facility] [address] [place] [id number] [place] [address] Aug, [facility] [address] [id number] [place] [address] May, [facility] [address] [facility] [id number] [place] [address] May, [facility] [address] [facility] [id number] [place] [address] May, [facility] [address] [id number] [place] [address] May, [facility] [address] [facility] [id number] [place] [address] May, [facility] [address] [id number] [place] [address] Apr, [facility] [address] [id number] [place] [address] Apr, [facility] [address] [id number] [place] [address] Apr, [facility] [address] [id number] [place] [address] Apr, [facility] [address] [id number] [place] [address] Apr, [facility] [address] [id number] [place] [address] Apr, [facility] [address] [id number] [place] [address] Apr, [facility] [address] [id number] [place] [address] Apr, [facility] [address] [facility] [id number] [place] [address] Mar, [facility] [address] [id number] [place] [address] Mar, [facility] [address] [id number] [place] [address] Mar, [facility] [address] [id number] [place] [address] Mar, [facility] [address] [facility] [id number] [place] [address] Mar, [facility] [address] [id number] [place] [address] Mar, [facility] [address] [id number] [place] [address] Mar, [facility] [address] [id number] [place] [address] February, [facility] [address] [id number] [place] [address] February, [facility] [address] [id number] [place] [address] Jan, [facility] [address] [id number] [place] [address] Jan, [facility] [address] [id number] [place] [address] Jan, [facility] [address] [id number] [place] [address] Jan, [facility] [address] [id number] [place] [address] Jan, [facility] [address] [id number] [place] [address] Jan, [facility] [address] [id number] [place] [address] Dec, [facility] [address] [id number] [place] [address] Dec, [facility] [address] [id number] [place] [address] Dec, [facility] [address] [id number] [place] [address] Nov, [facility] [address] [id number] [place] [address] Nov, [facility] [address] [id number] [place] [address] Nov, [facility] [address] [id number] [place] [address] Nov, [facility] [address] [id number] [place] [address] Oct, [facility] [address] [id number] [place] [address] Oct, [facility] [address] [id number] [place] [address] Oct, [facility] [address] [id number] [place] [address] Oct, [facility] [address] [id number] [place] [address] Oct, [facility] [address] [id number] [place] [address] Oct, [facility] [address] [id number] [place] [address] Sep, [facility] [address] [id number] [place] [address] Sep, [facility] [address] [id number] [place] [address] Aug, [facility] [address] [id number] [place] [address] Aug, [facility] [address] [id number] [place] [address] Aug, [facility] [address] [id number] [place] [address] Aug, [facility] [id number] [place] [address] Jul, [facility] [address] [id number] [place] [address] Jul, [facility] [address] [id number] [place] [address] Jul, [facility] [address] [id number] [place] [address] Jul, [facility] [address] [id number] [place] [address] Jul, [facility] [address] [id number] [place] [address] Apr, [facility] [address] [id number] [place] [address] Apr, [facility] [address] [facility] [id number] [place] [address] Mar, [facility] [address] [id number] [place] [address] Mar, [facility] [address] [id number] [place] [address] February, [facility] [address] [id number] [place] [address] Dec, [facility] [address] [id number] [place] [address] Dec, [facility] [address] [id number] [place] [address] Dec, [facility] [address] [id number] [place] [address] Oct, [facility] [address] [id number] [place] [address] Oct, [facility] [address] [id number] [place] [address] Sep, [facility] [address] [id number] [place] [address] Aug, [facility] [address] [id number] [place] [address] Aug, [facility] [address] [id number] [place] [address] Aug, [facility] [address] [id number] [place] [address] Aug, [facility] [address] [id number] [place] [address] Aug, [facility] [address] [id number] [place] [address] Aug, [facility] [address] [id number] [place] [address] Aug, [facility] [address] [id number] [place] [address] Jul, [facility] [address] [id number] [place] [address] Jul, [facility] [address] [id number] [place] [address] Jul, [facility] [address] [id number] [place] [address] Jun, [facility] [address] [id number] [place] [address] Apr, [facility] [address] [id number] [place] [address] Apr, [facility] [address] [id number] [place] [address] Apr, [facility] [address] [id number] [place] [address] Mar, [facility] [address] [id number] [place] [address] Mar, [facility] [address] [id number] [place] [address] Jan, [facility] [address] [id number] [place] [address] Dec, [facility] [address] [id number] [place] [id number] May, [facility] [address] [id number] [place] [address] Sep, [facility] [id number] [place] [address] 16 Sep, 2010 [facility] [id number] [place] [address] Aug, [facility] [id number] [place] [address] Jul, [facility] [id number] [place] [address] Jul, [facility] [id number] [place] [address] Apr, [facility] [id number] [place] [address] Jan, [facility] [id number] [place] [address] Aug, [facility] [id number] [place] [address] Aug, [facility] [id number] [place] [address] Aug, [facility] [id number] [place] [address] Aug, [facility] [id number] [place] [address] Jul, [facility] [id number] [place] [address] May, [facility] [id number] [place] [address] Apr, [facility] [id number] [place] [address] February, [facility] [id number] [place] [address] Dec, IMMUNIZATIONS No Known Immunizations SOCIAL HISTORY [...] stones 2014 Hospitalization History Suicidal ideation/intentional overdo [facility] 03/16/18 Hospitalization History Behavorial hospitalization [facility] 03/2018
--- OUTSIDE RECORDS SUMMARY | 2020-02-24 12:22 | XMS REPORT ---
Author Author Reena SHAFFER Organization [facility] Address [address] [place] [address] Care Team Providers Care Motorcycle Maker Name Role Phone DEONDRE SHAFFER Unavailable PROBLEMS Type Condition ICD9-CM Code [id number] Code Onset Dates Condition S tatus SNOMED Code Problem Hypertension I10 Active 5484741 3 Problem Bipolar II disorder F31.81 Active 24722051 Problem Arthritis M19.90 Active 7696181 Problem Migraine G43.909 Active 37359117 Problem Lumbago with sciatica, unspecified side M54.40 Active 877057454 Problem Other chronic pain G89.29 Active 8 4352957 Problem Anxiety F41.9 Active 75139926 Problem IV drug abuse F19.10 Active 381327 006 Problem Essential hypertension I10 Active 63980042 Problem Opioid use disorder, severe, in early remission, dependenc e F11.21 Active 367092705 Problem Benzodiazepine dependence F13.20 Acti ve 829073455 Problem Moderate episode of recurrent major depressive disorder F33.1 Active 757448703 Problem Affective disorder F39 Active 4 1650130 Problem Gastroesophageal reflux disease without esophagitis K21.9 Active 686878277 Problem Psoriasis L40.9 Active 5193303 ALLERGIES No Information ENCOUNTERS Encounter Location Date Diagnosis [facility] [address] [facility] [id number] [place] [address] Nov, Opioid use disorder, severe, in early remission, dependence F11.21 [facility] [address] [id number] [place] [address] Nov, Lipoma of right upper extremity D17.21 [facility] [address] [id number] [place] [address] 18 Nov, 2019 Opioid use disorder, severe, in early re mission, dependence F11.21 [facility] [id number] [place] [address] Nov, [facility] [address] [id number] [place] [address] Nov, [facility] [id number] [place] [address] Nov, Opioid use disorder, severe, in early re mission, dependence F11.21 [facility] [id number] [place] [address] 04 Nov, 2019 Opioid use disorder, severe, in early re mission, dependence F11.21 [facility] [id number] [place] [address] Oct, [facility] [id number] [place] [address] Oct, [facility] [id number] [place] [address] Oct, [facility] [id number] [place] [address] Oct, Opioid use disorder, severe, in early re mission, dependence F11.21 [facility] [id number] [place] [address] Oct, Opioid use disorder, severe, in early re mission, dependence F11.21 and Bipolar II disorder F31.81 [facility] [id number] [place] [address] Oct, [facility] [id number] [place] [address] Oct, Opioid use disorder, severe, in early re mission, dependence F11.21 and Bipolar II disorder F31.81 [facility] [address] [address] 14 Oct, 2019 Opioid use disorder, severe, in early re mission, dependence F11.21 [facility] [id number] [place] [address] 08 Oct, 2019 Opioid use disorder, severe, in early re mission, dependence F11.21 ; Psoriasis L40.9 ; Lipoma of right upper extremity D17.21 and Abscess L02.91 [address] [place] [address] Sep, Opioid use disorder, severe, in early re mission, dependence F11.21 and Benzodiazepine dependence F13.20 [address] [place] [address] Sep, Opioid use disorder, severe, in early re mission, dependence F11.21 and Bipolar II disorder F31.81 [address] [place] [address] Sep, Opioid use disorder, severe, in early re mission, dependence F11.21 [address] [address] [place] [address] Sep, Opioid use disorder, severe, in early re mission, dependence F11.21 and Bipolar II disorder F31.81 [address] [address] [place] [address] Sep, Opioid use disorder, severe, in early re mission, dependence F11.21 [address] [address] [place] [address] Aug, Opioid use disorder, severe, in early re mission, dependence F11.21 and Bipolar II disorder F31.81 [address] [address] [place] [address] Aug, Opioid use disorder, severe, in early re mission, dependence F11.21 [place] [address] [address] 14 Aug, 2019 Opioid use disorder, severe, in early re mission, dependence F11.21 [address] [address] [place] [address] 07 Aug, 2019 Opioid use disorder, severe, in early re mission, dependence F11.21 [address] [address] [address] [place] [address] Jul, Opioid use disorder, severe, in early re mission, dependence F11.21 [facility] [address] [address] Jul, Opioid use disorder, severe, in early re mission, dependence F11.21 [facility] [id number] [place] [address] Jul, Opioid use disorder, severe, in early re mission, dependence F11.21 [facility] [address] [address] Jul, Opioid use disorder, severe, in early re mission, dependence F11.21 [facility] [address] [address] Jul, Opioid use disorder, severe, in early re mission, dependence F11.21 [facility] [address] [address] Jul, Opioid use disorder, severe, in early re mission, dependence F11.21 [facility] [id number] [place] [address] Jul, Opioid use disorder, severe, in early re mission, dependence F11.21 [facility] [id number] [place] [address] Jul, Opioid use disorder, severe, in early re mission, dependence F11.21 [facility] [id number] [place] [address] Jul, [facility] [address] [address] Jul, [facility] [address] [address] Jun, Opioid use disorder, severe, in early re mission, dependence F11.21 [facility] [id number] [place] [address] Jun, Opioid use disorder, severe, in early re mission, dependence F11.21 [facility] [address] [address] Jun, [facility] [address] [address] Jun, [facility] [address] [address] Jun, Bipolar II disorder F31.81 ; IV drug abu se F19.10 and Opioid use disorder, severe, in early remission, dependence F11.21 [facility] [address] [address] Jun, [facility] [address] [address] May, [address] [address] [address] May, Bipolar II disorder F31.81 [address] [address] May, Bipolar II disorder F31.81 and Hypertens ion I10 [place] [address] [address] Apr, [facility] [address] [place], [place] [id number] 57 February, IV drug abuse F19.10 ; Screen for STD (sexually transmitted disease) Z11.3 and Unprotected sex Z72.51 [place] [address] [address] Dec, [facility] [address] [address] Jul, Moderate episode of recurrent major depr essive disorder F33.1 [facility] [address] [address] May, [facility] [address] [address] Apr, Moderate episode of recurrent major depr essive disorder F33.1 [facility] [address] [address] Apr, Moderate episode of recurrent major depr essive disorder F33.1 [facility] [id number] [place] [address] Apr, [facility] [id number] [place] [address] Apr, Moderate episode of recurrent major depr essive disorder F33.1 [facility] [address] [address] Mar, [facility] [address] [address] Mar, Moderate episode of recurrent major depr essive disorder F33.[address] [facility] [address] [address] Mar, Bipolar II disorder F31.81 [facility] [address] [address] February, [facility] [address] [address] February, [facility] [address] [address] February, [facility] [address] [address] Dec, [facility] [address] [address] Nov, Psoriasis L40.9 [facility] [id number] [place] [address] Nov, [facility] [address] [address] Nov, Anxiety F41.9 [facility] [address] [address] Oct, [facility] [address] [address] Oct, [facility] [id number] [place] [address] Oct, [facility] [id number] [place] [address] Oct, [facility] [id number] [place] [address] Sep, [facility] [id number] [place] [address] Sep, [facility] [address] [id number] [place] [id number] Aug, Dental examination Z01.20 and Dental car ies K02.9 [facility] [address] [address] Aug, [facility] [address] [address] Jul, [facility] [address] [address] Jul, [facility] [address] [address] Jul, Moderate episode of recurrent major depr essive disorder F33.1 [facility] [address] [address] 18 Jun, 2017 Moderate episode of recurrent major depr essive disorder F33.[address] [facility] [id number] [place] [address] 14 Jun, 2017 [facility] [address] [address] 11 Jun, [address] [facility] [address] [address] Jun, Moderate episode of recurrent major depr essive disorder F33.1 [facility] [address] [address] Jun, [facility] [address] [address] May, Moderate episode of recurrent major depr essive disorder F33.1 [facility] [address] [facility] [id number] [place] [address] May, [facility] [address] [address] May, Encounter for well woman exam with nessa najera gynecological exam Z01.[address] [facility] [address] [address] Apr, [facility] [address] [address] Mar, Affective disorder F39 ; Benzodiazepine dependence F13.20 and High risk sexual behavior Z72.51 [facility] [address] [address] 17 Jan, 2017 Dyspepsia R10.13 ; Gastroesophageal refl ux disease without esophagitis K21.[address] disorder F39 [facility] [address] [address] Jan, Affective disorder F39 [place] [address] [address] 10 Dec, 2016 Moderate episode of recurrent major depr essive disorder F33.1 [facility] [address] [address] 14 Nov, 2016 Unspecified episodic mood disorder F39 a nd Essential hypertension I10 [facility] [address] [address] 02 Nov, 2016 Affective disorder F39 ; Anxiety F41.9 a nd Unspecified episodic mood disorder F39 [place] [address] [address] Oct, [facility] [address] [address] Oct, [facility] [address] [place], [place] [id number] 57 Sep, Dysuria R30.0 [place] [address] [address] Sep, [facility] [address] [address] Aug, [facility] [address] [address] Aug, [facility] [address] [address] Jul, [facility] [id number] [place] [address] Jul, Acute non-recurrent maxillar y sinusitis J01.[address] [facility] [address] [address] Jul, Affective disorder F39 ; Essential hyper tension I10 ; Lumbago with sciatica, unspecified side M54.40 ; Other chronic pain G89.29 [address]initis N76.0 [facility] [address] [address] Jun, [facility] [address] [address] Jun, [facility] [address] [address] Jun, [facility] [id number] [place] [address] May, Anxiety F41.9 [facility] [address] [address] May, [facility] [address] [address] May, [facility] [address] [address] Apr, [facility] [address] [address] Apr, Affective disorder F39 [facility] [id number] [place] [address] 08 Apr, 2016 [facility] [address] [address] Apr, Unspecified episodic mood disorder F39 [facility] [id number] [place] [address] Jan, Hypertension I10 [facility] [address] [address] Jan, Benzodiazepine dependence F13.20 and Art hritis M19.90 [facility] [address] [address] Nov, [facility] [address] [address] Jul, Migraine G43.909 ; Hypertension I10 [address] M19[address]90 [facility] [address] [address] Jun, [facility] [address] [address] Jun, [facility] [address] [address] Jun, [facility] [address] [address] May, [facility] [address] [address] Jan, [facility] [address] [address] Jan, [facility] [address] [address] Nov, [facility] [address] [address] Nov, [facility] [address] [address] Oct, [facility] [address] [place] [address] Oct, [facility] [address] [facility] [id number] [place] [address] Oct, [facility] [address] [facility] [id number] [place] [address] Oct, [facility] [address] [id number] [place] [address] Aug, [facility] [address] [id number] [place] [address] Aug, [facility] [address] [facility] [id number] [place] [address] Aug, [facility] [address] [id number] [place] [address] Aug, [facility] [address] [id number] [place] [address] Aug, [facility] [address] [id number] [place] [address] Aug, [facility] [address] [id number] [place] [address] Aug, [facility] [address] [id number] [place] [address] May, [facility] [address] [id number] [place] [address] May, [facility] [address] [id number] [place] [address] May, [facility] [address] [facility] [id number] [place] [address] May, [facility] [address] [id number] [place] [address] May, [facility] [address] [id number] [place] [address] Apr, [facility] [address] [id number] [place] [address] Apr, [facility] [address] [id number] [place] [address] Apr, [facility] [address] [facility] [id number] [place] [address] Apr, [facility] [address] [id number] [place] [address] Apr, [facility] [address] [id number] [place] [address] Apr, [facility] [address] [facility] [id number] [place] [address] Apr, [facility] [address] [id number] [place] [address] Apr, [facility] [address] [id number] [place] [address] Mar, [facility] [address] [id number] [place] [address] Mar, [facility] [address] [id number] [place] [address] Mar, [facility] [address] [id number] [place] [address] Mar, [facility] [address] [id number] [place] [address] Mar, [facility] [address] [id number] [place] [address] Mar, [facility] [address] [id number] [place] [address] Mar, [facility] [address] [facility] [id number] [place] [address] February, [facility] [address] [id number] [place] [address] February, [facility] [address] [id number] [place] [address] Jan, [facility] [address] [id number] [place] [address] Jan, [facility] [address] [id number] [place] [address] Jan, [facility] [address] [facility] [id number] [place] [address] Jan, [facility] [address] [facility] [id number] [place] [address] Jan, [facility] [address] [facility] [id number] [place] [address] Jan, [facility] [address] [facility] [id number] [place] [address] Dec, [facility] [address] [facility] [id number] [place] [address] Dec, [facility] [address] [facility] [id number] [place] [address] Dec, [facility] [address] [id number] [place] [address] Nov, [facility] [address] [facility] [id number] [place] [address] Nov, [facility] [address] [id number] [place] [address] Nov, [facility] [address] [id number] [place] [address] Nov, [facility] [address] [id number] [place] [address] Oct, [facility] [address] [facility] [id number] [place] [address] Oct, [facility] [address] [facility] [id number] [place] [address] Oct, [facility] [address] [facility] [id number] [place] [address] Oct, [facility] [address] [id number] [place] [address] Oct, [facility] [address] [id number] [place] [address] Oct, [facility] [address] [id number] [place] [address] Sep, [facility] [address] [id number] [place] [address] Sep, [facility] [address] [id number] [place] [address] Aug, [facility] [address] [id number] [place] [address] Aug, [facility] [address] [id number] [place] [address] Aug, [facility] [address] [id number] [place] [address] Aug, [facility] [address] [id number] [place] [address] Jul, [facility] [id number] [place] [address] Jul, [facility] [address] [id number] [place] [address] Jul, [facility] [address] [id number] [place] [address] Jul, [facility] [address] [id number] [place] [address] Jul, [facility] [address] [id number] [place] [address] Apr, [facility] [address] [id number] [place] [address] Apr, [facility] [id number] [place] [address] Mar, [facility] [address] [id number] [place] [address] Mar, [facility] [address] [id number] [place] [address] February, [facility] [address] [id number] [place] [address] Dec, [facility] [address] [id number] [place] [address] Dec, [facility] [address] [id number] [place] [address] Dec, [facility] [address] [id number] [place] [address] Oct, [facility] [address] [id number] [place] [address] Oct, [facility] [address] [id number] [place] [address] Sep, [facility] [address] [id number] [place] [address] Aug, [facility] [id number] [place] [address] Aug, [facility] [address] [id number] [place] [address] Aug, [facility] [address] [id number] [place] [address] Aug, [facility] [address] [id number] [place] [address] Aug, [facility] [address] [id number] [place] [address] Aug, [facility] [address] [id number] [place] [address] Aug, [facility] [address] [id number] [place] [address] Jul, [facility] [address] [id number] [place] [address] Jul, [facility] [address] [id number] [place] [address] Jul, [facility] [address] [id number] [place] [address] Jun, [facility] [address] [facility] [id number] [place] [address] Apr, [facility] [address] [id number] [place] [address] 17 Apr, 2012 [facility] [address] [id number] [place] [address] Apr, [facility] [address] [id number] [place] [address] Mar, [facility] [address] [id number] [place] [address] Mar, [facility] [address] [id number] [place] [address] Jan, [facility] [address] [id number] [place] [address] Dec, [facility] [address] [id number] [place] [address] May, [facility] [address] [id number] [place] [address] Sep, [facility] [address] [id number] [place] [address] Sep, [facility] [address] [id number] [place] [address] Aug, [facility] [address] [id number] [place] [address] Jul, [facility] [address] [id number] [place] [address] Jul, [facility] [address] [id number] [place] [address] 15 Apr, 2010 [facility] [address] [id number] [place] [address] 12 Jan, 2010 [facility] [address] [id number] [place] [address] Aug, [facility] [address] [id number] [place] [address] Aug, [facility] [address] [id number] [place] [address] Aug, [facility] [address] [id number] [place] [address] Aug, [facility] [address] [id number] [place] [address] Jul, [facility] [address] [id number] [place] [address] May, [facility] [address] [id number] [place] [address] Apr, [facility] [address] [id number] [place] [address] February, [facility] [address] [id number] [place] [address] Dec, IMMUNIZATIONS No Known Immunizations SOCIAL HISTORY [...] stones 2013 Hospitalization History Suicidal ideation/intentional overdo [facility] 03/16/18 Hospitalization History Behavorial hospitalization [facility] 03/2018
--- OUTSIDE RECORDS SUMMARY | 2020-02-24 12:22 | XMS REPORT ---
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 Name Role Phone DEONDRE SHAFFER Unavailable PROBLEMS Type Condition ICD9-CM Code DIC69-LC Code Onset Dates Condition S tatus SNOMED Code Problem Hypertension I10 Active 9573770 3 Problem Bipolar II disorder F31.81 Active 69086456 Problem Arthritis M19.90 Active 6149380 Problem Migraine G43.909 Active 32174739 Problem Lumbago with sciatica, unspecified side M54.40 Active 151218615 Problem Other chronic pain G89.29 Active 8 9367078 Problem Anxiety F41.9 Active 52416857 Problem IV drug abuse F19.10 Active 787577 006 Problem Essential hypertension I10 Active 16488308 Problem Opioid use disorder, severe, in early remission, dependenc e F11.21 Active 393734363 Problem Benzodiazepine dependence F13.20 Acti ve 832005695 Problem Moderate episode of recurrent major depressive disorder F33.1 Active 855210381 Problem Affective disorder F39 Active 4 9245111 Problem Gastroesophageal reflux disease without esophagitis K21.9 Active 914035974 Problem Psoriasis L40.9 Active 0911858 ALLERGIES No Information ENCOUNTERS Encounter Location Date Diagnosis [place] [address] [address] Dec, [facility] [address] [address] 17 Dec, 2019 Opioid use disorder, severe, in early re mission, dependence F11.21 [place] [address] [address] Dec, Opioid use disorder, severe, in early re mission, dependence F11.21 and Bipolar II disorder F31.81 [place] [address] [address] 03 Dec, 2019 Encounter for removal of sutures Z48.02 [facility] [address] [id number] [place] [address] 03 Dec, 2019 Opioid use disorder, severe, in early re mission, dependence F11.21 [facility] [address] [facility] [id number] [place] [address] 25 Nov, 2019 Opioid use disorder, severe, in early remission, dependence F11.21 [facility] [address] [place] [id number] [place] [address] 18 Nov, 2019 Lipoma of right upper extremity D17.21 [facility] [address] [place] [id number] [place] [address] 18 Nov, 2019 Opioid use disorder, severe, in early re mission, dependence F11.21 [facility] [address] [place] [id number] [place] [address] 13 Nov, 2019 [facility] [address] [place] [id number] [place] [address] Nov, [facility] [address] [place] [id number] [place] [address] Nov, Opioid use disorder, severe, in early re mission, dependence F11.21 [facility] [address] [place] [id number] [place] [address] 04 Nov, 2019 Opioid use disorder, severe, in early re mission, dependence F11.21 [facility] [address] [place] [id number] [place] [address] Oct, [facility] [address] [place] [id number] [place] [address] Oct, [facility] [address] [place] [id number] [place] [address] Oct, [facility] [address] [place] [id number] [place] [address] Oct, Opioid use disorder, severe, in early re mission, dependence F11.21 [facility] [address] [place] [address] 24 Oct, 2019 Opioid use disorder, severe, in early re mission, dependence F11.21 and Bipolar II disorder F31.81 [place] [address] [place] [address] Oct, [place] [address] [address] 17 Oct, 2019 Opioid use disorder, severe, in early re mission, dependence F11.21 and Bipolar II disorder F31.81 [place] [address] [address] 14 Oct, 2019 Opioid use disorder, severe, in early re mission, dependence F11.21 [place] [address] [address] 08 Oct, 2019 Opioid use disorder, severe, in early re mission, dependence F11.21 ; Psoriasis L40.9 ; Lipoma of right upper extremity D17.21 and Abscess L02.91 [place] [address] [address] Sep, Opioid use disorder, severe, in early re mission, dependence F11.21 and Benzodiazepine dependence F13.20 [place] [address] [address] Sep, Opioid use disorder, severe, in early re mission, dependence F11.21 and Bipolar II disorder F31.81 [place] [address] [address] Sep, Opioid use disorder, severe, in early re mission, dependence F11.21 [place] [address] [address] Sep, Opioid use disorder, severe, in early re mission, dependence F11.21 and Bipolar II disorder F31.81 [place] [address] [address] Sep, Opioid use disorder, severe, in early re mission, dependence F11.21 [place] [address] [address] Aug, Opioid use disorder, severe, in early re mission, dependence F11.21 and Bipolar II disorder F31.81 [facility] [address] [place] [address] Aug, Opioid use disorder, severe, in early re mission, dependence F11.21 [facility] [address] [place] [address] 14 Aug, 2019 Opioid use disorder, severe, in early re mission, dependence F11.21 [facility] [address] [place] [address] 07 Aug, 2019 Opioid use disorder, severe, in early re mission, dependence F11.21 [facility] [address] [address] 31 Jul, 2019 Opioid use disorder, severe, in early re mission, dependence F11.21 [facility] [address] [address] Jul, Opioid use disorder, severe, in early re mission, dependence F11.21 [facility] [address] [address] Jul, Opioid use disorder, severe, in early re mission, dependence F11.21 [facility] [address] [address] Jul, Opioid use disorder, severe, in early re mission, dependence F11.21 [facility] [address] [address] Jul, Opioid use disorder, severe, in early re mission, dependence F11.21 [facility] [address] [address] Jul, Opioid use disorder, severe, in early re mission, dependence F11.21 [facility] [address] [address] Jul, Opioid use disorder, severe, in early re mission, dependence F11.21 [facility] [address] [address] Jul, Opioid use disorder, severe, in early re mission, dependence F11.21 [facility] [address] [address] Jul, [facility] [address] [address] Jul, [facility] [address] [address] Jun, Opioid use disorder, severe, in early re mission, dependence F11.21 [facility] [address] [address] Jun, Opioid use disorder, severe, in early re mission, dependence F11.21 [facility] [address] [address] Jun, [facility] [address] [address] Jun, [facility] [address] [address] Jun, Bipolar II disorder F31.81 ; IV drug abu se F19.10 and Opioid use disorder, severe, in early remission, dependence F11.21 [facility] [address] [address] Jun, [facility] [address] [address] May, [facility] [address] [address] May, Bipolar II disorder F31.81 [facility] [address] [address] May, Bipolar II disorder F31.81 and Hypertens ion I10 [facility] [address] [address] Apr, [facility] [address] [place] [address] 57 February, IV drug abuse F19.10 ; Screen for STD (sexually transmitted disease) Z11.3 and Unprotected sex Z72.51 [facility] [address] [address] Dec, [facility] [address] [address] Jul, Moderate episode of recurrent major depr essive disorder F33.1 [facility] [address] [address] May, [place] [address] [address] Apr, Moderate episode of recurrent major depr essive disorder F33.1 [place] [address] [address] Apr, Moderate episode of recurrent major depr essive disorder F33.1 [facility] [address] [address] Apr, [facility] [address] [address] Apr, Moderate episode of recurrent major depr essive disorder F33.1 [facility] [address] [address] Mar, [facility] [address] [address] Mar, Moderate episode of recurrent major depr essive disorder F33.1 and Hypertension I10 [facility] [address] [address] Mar, Bipolar II disorder F31.81 [facility] [address] [address] February, [facility] [address] [address] February, [facility] [address] [address] February, [facility] [address] [address] Dec, [facility] [address] [address] Nov, Psoriasis L40.9 [facility] [address] [address] Nov, [facility] [address] [address] Nov, Anxiety F41.9 [facility] [address] [address] Oct, [facility] [address] [address] Oct, [facility] [address] [address] Oct, [facility] [address] [address] Oct, [facility] [address] [address] Sep, [facility] [address] [address] Sep, [facility] [address] [id number] Aug, Dental examination Z01.20 and Dental car ies K02.9 [facility] [address] [address] Aug, [facility] [address] [address] Jul, [facility] [address] [address] Jul, [facility] [address] [address] Jul, Moderate episode of recurrent major depr essive disorder F33.1 [facility] [address] [id number] [place] [address] 18 Jun, 2017 Moderate episode of recurrent major depr essive disorder F33.1 and Anxiety F41.9 [facility] [address] [id number] [place] [address] 14 Jun, 2017 [facility] [address] [place] [id number] [place] [address] Jun, Anxiety F41.9 [facility] [address] [address] Jun, Moderate episode of recurrent major depr essive disorder F33.1 [facility] [address] [address] Jun, [facility] [address] [place] [id number] [place] [address] May, Moderate episode of recurrent major depr essive disorder F33.1 [facility] [address] [facility] [id number] [address] [address] May, [facility] [address] [place] [id number] [place] [address] May, Encounter for well woman exam with nessa najera gynecological exam Z01.419 and Anxiety F41.9 [facility] [address] [address] Apr, [facility] [address] [address] Mar, Affective disorder F39 ; Benzodiazepine dependence F13.20 and High risk sexual behavior Z72.51 [facility] [address] [address] Jan, Dyspepsia R10.13 ; Gastroesophageal refl ux disease without esophagitis K21.9 and Affective disorder F39 [facility] [address] [address] Jan, Affective disorder F39 [facility] [address] [address] 10 Dec, 2016 Moderate episode of recurrent major depr essive disorder F33.1 [facility] [address] [address] 14 Nov, 2016 Unspecified episodic mood disorder F39 a nd Essential hypertension I10 [facility] [address] [address] 02 Nov, 2016 Affective disorder F39 ; Anxiety F41.9 a nd Unspecified episodic mood disorder F39 [facility] [address] [address] Oct, [facility] [address] [address] Oct, [facility] [address] [place], [place] [address] 57 Sep, Dysuria R30.0 [facility] [address] [address] Sep, [facility] [address] [address] Aug, [facility] [address] [address] Aug, [facility] [address] [address] Jul, [facility] [address] [facility] [id number] [address] [place] [address] Jul, Acute non-recurrent maxillar y sinusitis J01.00 and Dysuria R30.0 [facility] [address] [address] Jul, Affective disorder F39 ; Essential hyper tension I10 ; Lumbago with sciatica, unspecified side M54.40 ; Other chronic pain G89.29 and Acute vaginitis N76.0 [facility] [address] [address] Jun, [facility] [address] [place] [address] Jun, [facility] [address] [place] [id number] [place] [address] Jun, [facility] [address] [facility] [id number] [address] [place] [address] May, Anxiety F41.9 [facility] [address] [address] May, [facility] [address] [address] May, [facility] [address] [address] Apr, [facility] [address] [address] Apr, Affective disorder F39 [facility] [address] [address] Apr, [facility] [address] [address] Apr, Unspecified episodic mood disorder F39 [facility] [address] [address] Jan, Hypertension I10 [facility] [address] [address] Jan, Benzodiazepine dependence F13.20 and Art hritis M19.90 [facility] [address] [address] Nov, [facility] [address] [address] Jul, Migraine G43.909 ; Hypertension I10 and Arthritis M19.90 [facility] [address] [place] [id number] [place] [address] Jun, [facility] [address] [address] Jun, [facility] [address] [place] [address] [place] [address] Jun, [facility] [address] [id number] [place] [address] May, [facility] [address] [id number] [place] [address] Jan, [facility] [address] [id number] [place] [address] Jan, [facility] [address] [id number] [place] [address] Nov, [facility] [address] [id number] [place] [address] Nov, [facility] [address] [id number] [place] [address] Oct, [facility] [address] [id number] [place] [address] Oct, [facility] [address] [id number] [place] [address] Oct, [facility] [address] [id number] [place] [address] Oct, [facility] [address] [id number] [place] [address] Aug, [facility] [address] [id number] [place] [address] Aug, [facility] [address] [id number] [place] [address] Aug, [facility] [address] [id number] [place] [address] Aug, [facility] [address] [place] [id number] [place] [address] Aug, [facility] [address] [id number] [place] [address] Aug, [facility] [address] [place] [id number] [place] [address] Aug, [facility] [address] [id number] [place] [address] May, [facility] [address] [facility] [id number] [place] [address] May, [facility] [address] [facility] [id number] [place] [address] May, [facility] [address] [id number] [place] [address] May, [facility] [address] [facility] [id number] [place] [address] May, [facility] [address] [id number] [place] [address] Apr, [facility] [address] [id number] [place] [address] Apr, [facility] [address] [id number] [place] [address] Apr, [facility] [address] [id number] [place] [address] Apr, [facility] [address] [id number] [place] [address] Apr, [facility] [address] [id number] [place] [address] Apr, [facility] [address] [id number] [place] [address] Apr, [facility] [address] [id number] [place] [address] Apr, [facility] [address] [facility] [id number] [place] [address] Mar, [facility] [address] [id number] [place] [address] Mar, [facility] [address] [id number] [place] [address] Mar, [facility] [address] [id number] [place] [address] Mar, [facility] [address] [facility] [id number] [facility] [place] [address] Mar, [facility] [address] [id number] [facility] [address] Mar, [facility] [address] [id number] [place] [address] Mar, [facility] [address] [id number] [facility] [place] [address] February, [facility] [address] [id number] [facility] [address] February, [facility] [address] [id number] [place] [address] Jan, [facility] [address] [id number] [place] [address] Jan, [facility] [address] [id number] [place] [address] Jan, [facility] [address] [id number] [place] [address] Jan, [facility] [address] [id number] [place] [address] Jan, [facility] [address] [id number] [place] [address] Jan, [facility] [address] [id number] [place] [address] Dec, [facility] [address] [id number] [facility] [address] Dec, [facility] [address] [id number] [place] [address] Dec, [facility] [address] [id number] [place] [address] Nov, [facility] [address] [id number] [place] [address] Nov, [facility] [address] [id number] [place] [address] Nov, [facility] [address] [id number] [place] [address] Nov, [facility] [address] [id number] [place] [address] Oct, [facility] [address] [id number] [place] [address] Oct, [facility] [address] [id number] [place] [address] Oct, [facility] [address] [id number] [place] [address] Oct, [facility] [address] [id number] [place] [address] Oct, [facility] [address] [id number] [place] [address] Oct, [facility] [address] [id number] [place] [address] Sep, [facility] [address] [id number] [place] [address] Sep, [facility] [address] [id number] [place] [address] Aug, [facility] [address] [id number] [place] [address] Aug, [facility] [address] [id number] [place] [address] Aug, [facility] [address] [id number] [place] [address] Aug, [facility] [address] [id number] [place] [address] Jul, [facility] [address] [id number] [place] [address] Jul, [facility] [address] [id number] [place] [address] Jul, [facility] [address] [id number] [place] [address] Jul, [facility] [address] [id number] [place] [address] Jul, [facility] [address] [id number] [place] [address] Apr, [facility] [address] [id number] [place] [address] Apr, [facility] [address] [facility] [id number] [place] [address] Mar, [facility] [address] [id number] [place] [address] Mar, [facility] [address] [id number] [place] [address] February, [facility] [address] [id number] [place] [address] Dec, [facility] [address] [id number] [place] [address] Dec, [facility] [address] [id number] [place] [address] Dec, [facility] [address] [id number] [place] [address] Oct, [facility] [address] [id number] [place] [address] Oct, [facility] [address] [id number] [place] [address] Sep, [facility] [address] [id number] [place] [address] Aug, [facility] [address] [id number] [place] [address] Aug, [facility] [address] [id number] [place] [address] Aug, [facility] [address] [id number] [place] [address] Aug, [facility] [address] [id number] [facility] [place] [address] Aug, [facility] [address] [id number] [place] [address] Aug, [facility] [address] [id number] [place] [address] Aug, [facility] [address] [id number] [place] [address] Jul, [facility] [address] [id number] [place] [address] Jul, [facility] [address] [id number] [place] [address] Jul, [facility] [address] [id number] [place] [address] Jun, [facility] [address] [id number] [place] [address] Apr, [facility] [address] [id number] [place] [address] Apr, [facility] [address] [id number] [place] [address] Apr, [facility] [address] [id number] [place] [address] Mar, [facility] [address] [id number] [place] [address] Mar, [facility] [address] [id number] [place] [address] Jan, [facility] [address] [id number] [place] [address] Dec, [facility] [address] [id number] [place] [address] May, [facility] [address] [id number] [place] [address] Sep, [facility] [address] [id number] [place] [address] 16 Sep, 2010 [facility] [id number] [place] [address] Aug, [facility] [id number] [place] [address] Jul, [facility] [id number] [place] [address] Jul, [facility] [id number] [place] [address] Apr, [facility] [id number] [place] [address] Jan, [facility] [id number] [place] [address] Aug, [facility] [id number] [place] [address] Aug, [facility] [id number] [place] [address] Aug, [facility] [id number] [place] [address] Aug, [facility] [id number] [place] [address] Jul, [facility] [id number] [place] [address] May, [facility] [id number] [place] [address] Apr, [facility] [id number] [place] [address] February, [facility] [id number] [place] [address] Dec, IMMUNIZATIONS No Known Immunizations SOCIAL HISTORY [...] stones 2014 Hospitalization History Suicidal ideation/intentional overdo [facility] 03/16/18 Hospitalization History Behavorial hospitalization [facility] 03/2018
[2020-02-24 12:23] LABS: ALBUMIN 4.8 GM/DL (3.2-4.5)
--- OUTSIDE RECORDS SUMMARY | 2020-02-24 12:23 | XMS REPORT ---
Author Author Reena SHARMA Organization [facility] Address [address] [place] [address] Care Team Providers Care Escrow Assistant Name Role Phone HERMELINDA SHARMA Unavailable PROBLEMS Type Condition ICD9-CM Code [id number] Code Onset Dates Condition S tatus SNOMED Code Problem Hypertension I10 Active 6941206 3 Problem Bipolar II disorder F31.81 Active 61260789 Problem Arthritis M19.90 Active 4213496 Problem Migraine G43.909 Active 69686690 Problem Lumbago with sciatica, unspecified side M54.40 Active 706430379 Problem Other chronic pain G89.29 Active 8 8564594 Problem Anxiety F41.9 Active 10094511 Problem IV drug abuse F19.10 Active 885887 006 Problem Essential hypertension I10 Active 61819104 Problem Opioid use disorder, severe, in early remission, dependenc e F11.21 Active 964806528 Problem Benzodiazepine dependence F13.20 Acti ve 574914801 Problem Moderate episode of recurrent major depressive disorder F33.1 Active 586968658 Problem Affective disorder F39 Active 4 9352492 Problem Gastroesophageal reflux disease without esophagitis K21.9 Active 524286997 Problem Psoriasis L40.9 Active 2008956 ALLERGIES No Information ENCOUNTERS Encounter Location Date Diagnosis [facility] [address] [id number] [place] [address] Nov, Opioid use disorder, severe, in early remission, dependence F11.21 [facility] [id number] [place] [address] 18 Nov, 2019 Lipoma of right upper extremity D17.21 [facility] [id number] [place] [address] 18 Nov, 2019 Opioid use disorder, severe, in early re mission, dependence F11.21 [facility] [address] [address] Nov, [facility] [id number] [place] [address] Nov, [facility] [id number] [place] [address] Nov, Opioid use disorder, severe, in early re mission, dependence F11.21 [facility] [address] [address] Nov, Opioid use disorder, severe, in early re mission, dependence F11.21 [facility] [address] [place] [address] Oct, [facility] [address] [address] Oct, [facility] [address] [address] Oct, [facility] [address] [address] Oct, Opioid use disorder, severe, in early re mission, dependence F11.21 [facility] [address] [place] [address] Oct, Opioid use disorder, severe, in early re mission, dependence F11.21 and Bipolar II disorder F31.81 [facility] [address] [place] [address] Oct, [facility] [address] [address] Oct, Opioid use disorder, severe, in early re mission, dependence F11.21 and Bipolar II disorder F31.81 [facility] [address] [address] 14 Oct, 2019 Opioid use disorder, severe, in early re mission, dependence F11.21 [facility] [address] [place] [address] 08 Oct, 2019 Opioid use disorder, severe, in early re mission, dependence F11.21 ; Psoriasis L40.9 ; Lipoma of right upper extremity D17.21 and Abscess L02.91 [address] [address] [place] [address] Sep, Opioid use disorder, severe, in early re mission, dependence F11.21 and Benzodiazepine dependence F13.20 [place] [address] [place] [address] Sep, Opioid use disorder, severe, in early re mission, dependence F11.21 and Bipolar II disorder F31.81 [place] [address] [place] [address] Sep, Opioid use disorder, severe, in early re mission, dependence F11.21 [place] [address] [place] [id number] Sep, Opioid use disorder, severe, in early re mission, dependence F11.21 and Bipolar II disorder F31.81 [place] [address] [place] [address] Sep, Opioid use disorder, severe, in early re mission, dependence F11.21 [place] [address] [place] [id number] Aug, Opioid use disorder, severe, in early re mission, dependence F11.21 and Bipolar II disorder F31.81 [place] [address] [address] Aug, Opioid use disorder, severe, in early re mission, dependence F11.21 [place] [address] [address] 14 Aug, 2019 Opioid use disorder, severe, in early re mission, dependence F11.21 [place] [id number] 07 Aug, 2019 Opioid use disorder, severe, in early re mission, dependence F11.21 [place] [id number] Jul, Opioid use disorder, severe, in early re mission, dependence F11.21 [facility] [id number] [place] [address] Jul, Opioid use disorder, severe, in early re mission, dependence F11.21 [facility] [id number] [place] [address] Jul, Opioid use disorder, severe, in early re mission, dependence F11.21 [facility] [id number] [place] [address] Jul, Opioid use disorder, severe, in early re mission, dependence F11.21 [facility] [id number] [place] [address] Jul, Opioid use disorder, severe, in early re mission, dependence F11.21 [facility] [id number] [place] [address] Jul, Opioid use disorder, severe, in early re mission, dependence F11.21 [facility] [id number] [place] [address] Jul, Opioid use disorder, severe, in early re mission, dependence F11.21 [facility] [id number] [place] [address] Jul, Opioid use disorder, severe, in early re mission, dependence F11.21 [facility] [id number] [place] [address] Jul, [facility] [address] [place] [address] Jul, [facility] [id number] [place] [address] Jun, Opioid use disorder, severe, in early re mission, dependence F11.21 [facility] [id number] [place] [address] Jun, Opioid use disorder, severe, in early re mission, dependence F11.21 [facility] [address] [address] 17 Jun, 2019 [facility] [address] [address] Jun, [facility] [address] [address] Jun, Bipolar II disorder F31.81 ; IV drug abu se F19.10 and Opioid use disorder, severe, in early remission, dependence F11.21 [facility] [address] [address] Jun, [facility] [address] [address] May, [place] [address] [address] May, Bipolar II disorder F31.81 [place] [address] [address] May, Bipolar II disorder F31.81 and Hypertens ion I10 [place] [address] [address] Apr, [facility] [address] [place], [place] [id number] 57 February, IV drug abuse F19.10 ; Screen for STD (sexually transmitted disease) Z11.3 and Unprotected sex Z72.51 [place] [address] [address] Dec, [place] [address] [address] Jul, Moderate episode of recurrent major depr essive disorder F33.1 [facility] [address] [address] May, [facility] [address] [address] Apr, Moderate episode of recurrent major depr essive disorder F33.1 [facility] [address] [address] Apr, Moderate episode of recurrent major depr essive disorder F33.1 [facility] [id number] [place] [address] Apr, [facility] [address] [address] Apr, Moderate episode of recurrent major depr essive disorder F33.1 [facility] [address] [address] Mar, [facility] [address] [place] [address] Mar, Moderate episode of recurrent major depr essive disorder F33.1 and Hypertension I10 [facility] [id number] [place] [address] Mar, Bipolar II disorder F31.81 [facility] [address] [place] [address] February, [facility] [address] [address] February, [facility] [address] [address] February, [facility] [address] [address] Dec, [facility] [address] [address] Nov, Psoriasis L40.9 [facility] [address] [place] [address] Nov, [facility] [address] [address] Nov, Anxiety F41.9 [facility] [address] [place] [address] Oct, [facility] [address] [address] Oct, [facility] [address] [place] [address] Oct, [facility] [address] [place] [address] Oct, [facility] [address] [address] Sep, [facility] [address] [place] [address] Sep, [facility] [address] [facility] [place] [id number] Aug, Dental examination Z01.20 and Dental car ies K02.9 [facility] [address] [address] Aug, [facility] [address] [address] Jul, [facility] [address] [address] Jul, [facility] [address] [address] Jul, Moderate episode of recurrent major depr essive disorder F33.1 [facility] [address] [address] 18 Jun, 2017 Moderate episode of recurrent major depr essive disorder F33.1 and Anxiety F41.9 [facility] [address] [place] [address] 14 Jun, 2017 [facility] [address] [address] Jun, Anxiety F41.9 [facility] [address] [address] Jun, Moderate episode of recurrent major depr essive disorder F33.1 [facility] [address] [address] Jun, [facility] [address] [address] May, Moderate episode of recurrent major depr essive disorder F33.1 [facility] [address] [facility] [id number] [place] [address] May, [facility] [address] [address] May, Encounter for well woman exam with nessa najera gynecological exam Z01.419 and Anxiety F41.9 [facility] [address] [address] Apr, [place] [address] [address] Mar, Affective disorder F39 ; Benzodiazepine dependence F13.20 and High risk sexual behavior Z72.51 [facility] [address] [address] Jan, Dyspepsia R10.13 ; Gastroesophageal refl ux disease without esophagitis K21.9 and Affective disorder F39 [facility] [address] [address] Jan, Affective disorder F39 [place] [address] [address] 10 Dec, 2016 Moderate episode of recurrent major depr essive disorder F33.1 [place] [address] [address] 14 Nov, 2016 Unspecified episodic mood disorder F39 a nd Essential hypertension I10 [facility] [address] [address] 02 Nov, 2016 Affective disorder F39 ; Anxiety F41.9 a nd Unspecified episodic mood disorder F39 [place] [address] [address] Oct, [place] [address] [address] Oct, [facility] [address], [place] [id number] 57 Sep, Dysuria R30.0 [place] [address] [place] [address] Sep, [facility] [address] [address] Aug, [facility] [address] [address] Aug, [facility] [address] [address] Jul, [facility] [id number] [place] [address] Jul, Acute non-recurrent maxillar y sinusitis J01.00 and Dysuria R30.0 [facility] [address] [address] Jul, Affective disorder F39 ; Essential hyper tension I10 ; Lumbago with sciatica, unspecified side M54.40 ; Other chronic pain G89.29 and Acute vaginitis N76.0 [facility] [address] [place] [address] Jun, [facility] [address] [address] Jun, [facility] [address] [address] Jun, [facility] [address] [facility] [id number] [address] [place] [address] May, Anxiety F41.9 [facility] [address] [address] May, [facility] [address] [address] May, [facility] [address] [address] Apr, [facility] [address] [address] Apr, Affective disorder F39 [facility] [address] [address] 08 Apr, 2016 [facility] [address] [address] Apr, Unspecified episodic mood disorder F39 [facility] [address] [address] Jan, Hypertension I10 [facility] [place] [address] [address] Jan, Benzodiazepine dependence F13.20 and Art hritis M19.90 [facility] [place] [address] [address] Nov, [facility] [place] [address] [address] Jul, Migraine G43.909 ; Hypertension I10 and Arthritis M19.90 [facility] [place] [address] [address] Jun, [facility] [address] [address] Jun, [facility] [address] [address] Jun, [facility] [address] [address] May, [facility] [address] [address] Jan, [facility] [address] [address] Jan, [facility] [address] [address] Nov, [facility] [address] [address] Nov, [facility] [address] [address] Oct, [facility] [address] [address] Oct, [facility] [place] [facility] [address] [facility] [id number] [facility] [address] Oct, [facility] [place] [facility] [address] [facility] [id number] [place] [address] Oct, [facility] [place] [facility] [address] [id number] [place] [address] Aug, [facility] [place] [facility] [address] [id number] [place] [address] Aug, [facility] [place] [facility] [address] [facility] [id number] [place] [address] Aug, [facility] [place] [facility] [address] [id number] [place] [address] Aug, [facility] [place] [facility] [address] [id number] [place] [address] Aug, [facility] [place] [facility] [address] [id number] [place] [address] Aug, [facility] [place] [facility] [address] [id number] [place] [address] Aug, [facility] [place] [facility] [address] [id number] [place] [address] May, [facility] [place] [facility] [address] [id number] [place] [address] May, [facility] [place] [facility] [address] [id number] [place] [address] May, [facility] [place] [facility] [address] [facility] [id number] [place] [address] May, [facility] [place] [facility] [address] [id number] [place] [address] May, [facility] [place] [facility] [address] [id number] [place] [address] Apr, [facility] [place] [facility] [address] [id number] [place] [address] Apr, [facility] [place] [facility] [address] [facility] [id number] [facility] [address] Apr, [facility] [place] [facility] [address] [facility] [id number] [place] [address] Apr, [facility] [place] [facility] [address] [facility] [id number] [place] [address] Apr, [facility] [place] [facility] [address] [id number] [place] [address] Apr, [facility] [place] [facility] [address] [facility] [id number] [place] [address] Apr, [facility] [place] [facility] [address] [facility] [id number] [place] [address] Apr, [facility] [place] [facility] [address] [id number] [place] [address] Mar, [facility] [place] [facility] [address] [id number] [place] [address] Mar, [facility] [address] [id number] [place] [address] Mar, [facility] [address] [id number] [place] [address] Mar, [facility] [address] [id number] [place] [address] Mar, [facility] [address] [id number] [place] [address] Mar, [facility] [address] [id number] [place] [address] Mar, [facility] [address] [facility] [id number] [place] [address] February, [facility] [address] [id number] [place] [address] February, [facility] [address] [id number] [place] [address] Jan, [facility] [address] [id number] [place] [address] Jan, [facility] [address] [id number] [place] [address] Jan, [facility] [address] [facility] [id number] [facility] [address] Jan, [facility] [address] [facility] [id number] [place] [address] Jan, [facility] [address] [id number] [place] [address] Jan, [facility] [address] [facility] [id number] [place] [address] Dec, [facility] [address] [id number] [place] [address] Dec, [facility] [address] [id number] [place] [address] Dec, [facility] [address] [id number] [place] [address] Nov, [facility] [address] [facility] [id number] [place] [address] Nov, [facility] [address] [id number] [place] [address] Nov, [facility] [address] [id number] [place] [address] Nov, [facility] [address] [id number] [place] [address] Oct, [facility] [address] [facility] [id number] [place] [address] Oct, [facility] [address] [id number] [place] [address] Oct, [facility] [address] [id number] [place] [address] Oct, [facility] [address] [id number] [place] [address] Oct, [facility] [address] [id number] [place] [address] Oct, [facility] [address] [id number] [place] [address] Sep, [facility] [address] [id number] [place] [address] Sep, [facility] [address] [id number] [place] [address] Aug, [facility] [address] [id number] [place] [address] Aug, [facility] [address] [id number] [place] [address] Aug, [facility] [address] [id number] [place] [address] Aug, [facility] [address] [id number] [place] [address] Jul, [facility] [address] [id number] [place] [address] Jul, [facility] [address] [id number] [place] [address] Jul, [facility] [address] [id number] [place] [address] Jul, [facility] [address] [id number] [place] [address] Jul, [facility] [address] [id number] [place] [address] Apr, [facility] [address] [id number] [place] [address] Apr, [facility] [id number] [place] [address] Mar, [facility] [address] [id number] [place] [address] Mar, [facility] [address] [id number] [place] [address] February, [facility] [address] [id number] [place] [address] Dec, [facility] [address] [id number] [place] [address] Dec, [facility] [address] [id number] [place] [address] Dec, [facility] [id number] [place] [address] Oct, [facility] [address] [id number] [place] [address] Oct, [facility] [address] [id number] [place] [address] Sep, [facility] [address] [id number] [place] [address] Aug, [facility] [id number] [place] [address] Aug, [facility] [id number] [place] [address] Aug, [facility] [id number] [place] [address] Aug, [facility] [id number] [place] [address] Aug, [facility] [id number] [place] [address] Aug, [facility] [address] [id number] [place] [address] Aug, [facility] [address] [id number] [place] [address] Jul, [facility] [id number] [place] [address] Jul, [facility] [address] [id number] [place] [address] Jul, [facility] [id number] [place] [address] Jun, [facility] [address] [facility] [id number] [place] [address] Apr, [facility] [address] [facility] [id number] [place] [address] 17 Apr, 2012 [facility] [address] [id number] [place] [address] Apr, [facility] [address] [id number] [place] [address] Mar, [facility] [address] [facility] [id number] [place] [address] Mar, [facility] [address] [id number] [place] [address] Jan, [facility] [address] [id number] [place] [address] Dec, [facility] [address] [id number] [place] [address] May, [facility] [address] [id number] [place] [address] Sep, [facility] [address] [id number] [place] [address] Sep, [facility] [address] [id number] [place] [address] Aug, [facility] [address] [id number] [place] [address] Jul, [facility] [address] [id number] [place] [address] Jul, [facility] [address] [id number] [place] [address] 15 Apr, 2010 [facility] [address] [id number] [place] [address] Jan, [facility] [address] [id number] [place] [address] Aug, [facility] [address] [id number] [place] [address] Aug, [facility] [place] [address] [id number] [place] [address] Aug, [facility] [place] [address] [id number] [place] [address] Aug, [facility] [place] [id number] [place] [address] Jul, [facility] [place] [address] [address] May, [facility] [place] [id number] [place] [address] Apr, [facility] [place] [id number] [place] [address] February, [facility] [place] [address] [id number] [place] [address] Dec, IMMUNIZATIONS No Known Immunizations SOCIAL HISTORY [...] stones 2013 Hospitalization History Suicidal ideation/intentional overdo [facility] 03/16/18 Hospitalization History Behavorial hospitalization [facility] 03/2018
--- OUTSIDE RECORDS SUMMARY | 2020-02-24 12:23 | XMS REPORT ---
Author Author Reena SHAFFER Organization [facility] Address [address] [place] [address] Care Team Providers Care Manager Retail Sales Name Role Phone DEONDRE SHAFFER Unavailable PROBLEMS Type Condition ICD9-CM Code [id number] Code Onset Dates Condition S tatus SNOMED Code Problem Hypertension I10 Active 4849195 3 Problem Bipolar II disorder F31.81 Active 10340844 Problem Arthritis M19.90 Active 6869770 Problem Migraine G43.909 Active 29743162 Problem Lumbago with sciatica, unspecified side M54.40 Active 026705902 Problem Other chronic pain G89.29 Active 8 7270351 Problem Anxiety F41.9 Active 89468547 Problem IV drug abuse F19.10 Active 111271 006 Problem Essential hypertension I10 Active 60153170 Problem Opioid use disorder, severe, in early remission, dependenc e F11.21 Active 788500166 Problem Benzodiazepine dependence F13.20 Acti ve 802497398 Problem Moderate episode of recurrent major depressive disorder F33.1 Active 059766988 Problem Affective disorder F39 Active 4 3332011 Problem Gastroesophageal reflux disease without esophagitis K21.9 Active 523153677 Problem Psoriasis L40.9 Active 3045234 ALLERGIES No Information ENCOUNTERS Encounter Location Date Diagnosis [facility] [id number] [place] [address] Nov, [facility] [id number] [place] [address] Oct, [facility] [address] [address] Oct, [facility] [id number] [place] [address] Oct, [facility] [address] [address] Oct, Opioid use disorder, severe, in early re mission, dependence F11.21 [place] [address] [address] Oct, Opioid use disorder, severe, in early re mission, dependence F11.21 and Bipolar II disorder F31.81 [place] [address] [address] Oct, [place] [address] [address] Oct, Opioid use disorder, severe, in early re mission, dependence F11.21 and Bipolar II disorder F31.81 [place] [address] [address] 14 Oct, 2019 Opioid use disorder, severe, in early re mission, dependence F11.21 [place] [address] [address] 08 Oct, 2019 Opioid use disorder, severe, in early re mission, dependence F11.21 ; Psoriasis L40.9 ; Lipoma of right upper extremity D17.21 and Abscess L02.91 [place] [address] [address] Sep, Opioid use disorder, severe, in early re mission, dependence F11.21 and Benzodiazepine dependence F13.20 [place] [address] [address] Sep, Opioid use disorder, severe, in early re mission, dependence F11.21 and Bipolar II disorder F31.81 [place] [address] [address] Sep, Opioid use disorder, severe, in early re mission, dependence F11.21 [place] [address] [address] Sep, Opioid use disorder, severe, in early re mission, dependence F11.21 and Bipolar II disorder F31.81 [place] [address] [id number] Sep, Opioid use disorder, severe, in early re mission, dependence F11.21 [facility] [address] [address] Aug, Opioid use disorder, severe, in early re mission, dependence F11.21 and Bipolar II disorder F31.81 [facility] [id number] [place] [address] Aug, Opioid use disorder, severe, in early re mission, dependence F11.21 [facility] [address] [address] Aug, Opioid use disorder, severe, in early re mission, dependence F11.21 [facility] [address] [address] 07 Aug, 2019 Opioid use disorder, severe, in early re mission, dependence F11.21 [facility] [address] [address] Jul, Opioid use disorder, severe, in early re mission, dependence F11.21 [facility] [address] [address] Jul, Opioid use disorder, severe, in early re mission, dependence F11.21 [facility] [address] [address] Jul, Opioid use disorder, severe, in early re mission, dependence F11.21 [facility] [address] [address] Jul, Opioid use disorder, severe, in early re mission, dependence F11.21 [facility] [address] [address] Jul, Opioid use disorder, severe, in early re mission, dependence F11.21 [facility] [id number] [place] [address] Jul, Opioid use disorder, severe, in early re mission, dependence F11.21 [facility] [address] [address] Jul, Opioid use disorder, severe, in early re mission, dependence F11.21 [facility] [address] [address] Jul, Opioid use disorder, severe, in early re mission, dependence F11.21 [facility] [address] [address] Jul, [facility] [address] [address] Jul, [facility] [address] [address] Jun, Opioid use disorder, severe, in early re mission, dependence F11.21 [facility] [address] [address] Jun, Opioid use disorder, severe, in early re mission, dependence F11.21 [facility] [address] [address] Jun, [facility] [address] [address] Jun, [facility] [address] [address] Jun, Bipolar II disorder F31.81 ; IV drug abu se F19.10 and Opioid use disorder, severe, in early remission, dependence F11.21 [facility] [address] [address] Jun, [facility] [address] [address] May, [facility] [address] [address] May, Bipolar II disorder F31.81 [facility] [address] [address] May, Bipolar II disorder F31.81 and Hypertens ion I10 [place] [id number] [address] Apr, [facility] [address] [place], [place] [id number] 57 February, IV drug abuse F19.10 ; Screen for STD (sexually transmitted disease) Z11.3 and Unprotected sex Z72.51 [place] [address] [address] Dec, [place] [address] [address] Jul, Moderate episode of recurrent major depr essive disorder F33.1 [place] [address] [address] May, [place] [address] [address] Apr, Moderate episode of recurrent major depr essive disorder F33.1 [place] [address] [address] Apr, Moderate episode of recurrent major depr essive disorder F33.1 [place] [address] [address] Apr, [place] [address] [address] Apr, Moderate episode of recurrent major depr essive disorder F33.1 [place] [address] [address] Mar, [facility] [address] [address] Mar, Moderate episode of recurrent major depr essive disorder F33.1 and Hypertension I10 [place] [address] [address] 14 Mar, 2018 Bipolar II disorder F31.81 [facility] [address] [address] February, [facility] [address] [address] February, [facility] [id number] [place] [address] February, [facility] [id number] [place] [address] Dec, [facility] [id number] [place] [address] Nov, Psoriasis L40.9 [facility] [address] [address] Nov, [facility] [id number] [place] [address] Nov, Anxiety F41.9 [facility] [address] [address] Oct, [facility] [id number] [place] [address] Oct, [facility] [address] [address] Oct, [facility] [id number] [place] [address] Oct, [facility] [address] [address] Sep, [facility] [id number] [place] [address] Sep, [facility] [id number] [place] [id number] Aug, Dental examination Z01.20 and Dental car ies K02.9 [facility] [id number] [place] [address] Aug, [facility] [address] [address] Jul, [facility] [id number] [place] [address] Jul, [facility] [address] [address] Jul, Moderate episode of recurrent major depr essive disorder F33.1 [facility] [address] [address] Jun, Moderate episode of recurrent major depr essive disorder F33.1 and Anxiety F41.9 [facility] [address] [address] 14 Jun, 2017 [facility] [address] [address] Jun, Anxiety F41.9 [place] [address] [address] Jun, Moderate episode of recurrent major depr essive disorder F33.1 [facility] [address] [address] Jun, [facility] [address] [address] May, Moderate episode of recurrent major depr essive disorder F33.1 [facility] [address] [facility] [id number] [address] [place] [address] May, [facility] [address] [address] May, Encounter for well woman exam with nessa najera gynecological exam Z01.419 and Anxiety F41.9 [facility] [address] [address] Apr, [place] [address] [address] Mar, Affective disorder F39 ; Benzodiazepine dependence F13.20 and High risk sexual behavior Z72.51 [facility] [address] [address] Jan, Dyspepsia R10.13 ; Gastroesophageal refl ux disease without esophagitis K21.9 and Affective disorder F39 [facility] [address] [address] Jan, Affective disorder F39 [facility] [address] [address] Dec, Moderate episode of recurrent major depr essive disorder F33.1 [facility] [address] [address] 14 Nov, 2016 Unspecified episodic mood disorder F39 a nd Essential hypertension I10 [place] [address] [address] 02 Nov, 2016 Affective disorder F39 ; Anxiety F41.9 a nd Unspecified episodic mood disorder F39 [place] [address] [address] Oct, [place] [address] [address] Oct, [facility] [address] [id number] 57 Sep, Dysuria R30.0 [place] [address] [address] Sep, [facility] [address] [address] Aug, [facility] [address] [address] Aug, [facility] [address] [address] Jul, [facility] [address] [facility] [id number] [place] [address] Jul, Acute non-recurrent maxillar y sinusitis J01.00 and Dysuria R30.0 [facility] [address] [address] Jul, Affective disorder F39 ; Essential hyper tension I10 ; Lumbago with sciatica, unspecified side M54.40 ; Other chronic pain G89.29 and Acute vaginitis N76.0 [place] [address] [address] 22 Jun, 2016 [facility] [address] [address] Jun, [facility] [address] [address] Jun, [facility] [address] [facility] [id number] [address] [place] [address] May, Anxiety F41.9 [facility] [address] [address] May, [facility] [address] [address] May, [facility] [address] [address] Apr, [facility] [address] [address] Apr, Affective disorder F39 [facility] [address] [address] Apr, [facility] [address] [address] Apr, Unspecified episodic mood disorder F39 [facility] [address] [address] Jan, Hypertension I10 [facility] [address] [address] Jan, Benzodiazepine dependence F13.20 and Art hritis M19.90 [facility] [address] [address] Nov, [facility] [address] [address] Jul, Migraine G43.909 ; Hypertension I10 and Arthritis M19.90 [facility] [address] [address] Jun, [facility] [address] [place] [address] Jun, [facility] [address] [id number] [place] [address] Jun, [facility] [address] [id number] [place] [address] May, [facility] [address] [id number] [place] [address] Jan, [facility] [address] [id number] [place] [address] Jan, [facility] [address] [id number] [place] [address] Nov, [facility] [address] [id number] [place] [address] Nov, [facility] [address] [id number] [place] [address] Oct, [facility] [address] [id number] [place] [address] Oct, [facility] [address] [id number] [place] [address] Oct, [facility] [address] [id number] [place] [address] Oct, [facility] [address] [id number] [place] [address] Aug, [facility] [address] [id number] [place] [address] Aug, [facility] [address] [id number] [place] [address] Aug, [facility] [id number] [place] [address] Aug, [facility] [address] [id number] [place] [address] Aug, [facility] [address] [id number] [place] [address] Aug, [facility] [address] [facility] [id number] [place] [address] Aug, [facility] [address] [id number] [place] [address] May, [facility] [address] [id number] [place] [address] May, [facility] [address] [id number] [place] [address] May, [facility] [address] [facility] [id number] [place] [address] May, [facility] [address] [id number] [place] [address] May, [facility] [address] [id number] [place] [address] Apr, [facility] [address] [id number] [place] [address] Apr, [facility] [address] [id number] [place] [address] Apr, [facility] [address] [id number] [place] [address] Apr, [facility] [address] [id number] [place] [address] Apr, [facility] [address] [id number] [place] [address] Apr, [facility] [address] [id number] [place] [address] Apr, [facility] [address] [facility] [id number] [place] [address] Apr, [facility] [address] [id number] [place] [address] Mar, [facility] [address] [id number] [place] [address] Mar, [facility] [address] [id number] [place] [address] Mar, [facility] [address] [facility] [id number] [facility] [place] [address] Mar, [facility] [address] [facility] [id number] [facility] [place] [address] Mar, [facility] [address] [facility] [id number] [place] [address] Mar, [facility] [address] [facility] [id number] [place] [address] Mar, [facility] [address] [facility] [id number] [facility] [place] [address] February, [facility] [address] [facility] [id number] [place] [address] February, [facility] [address] [id number] [place] [address] Jan, [facility] [address] [id number] [facility] [place] [address] Jan, [facility] [address] [facility] [id number] [place] [address] Jan, [facility] [address] [id number] [place] [address] Jan, [facility] [address] [id number] [place] [address] Jan, [facility] [address] [id number] [place] [address] Jan, [facility] [address] [facility] [id number] [place] [address] Dec, [facility] [address] [id number] [place] [address] Dec, [facility] [address] [facility] [id number] [place] [address] Dec, [facility] [address] [id number] [place] [address] Nov, [facility] [address] [id number] [place] [address] 17 Nov, 2013 [facility] [address] [id number] [place] [address] Nov, [facility] [address] [id number] [place] [address] Nov, [facility] [address] [id number] [place] [address] Oct, [facility] [address] [id number] [place] [address] Oct, [facility] [address] [id number] [place] [address] Oct, [facility] [address] [id number] [place] [address] Oct, [facility] [address] [id number] [place] [address] Oct, [facility] [address] [id number] [place] [address] Oct, [facility] [address] [id number] [place] [address] Sep, [facility] [address] [id number] [place] [address] Sep, [facility] [address] [id number] [place] [address] Aug, [facility] [address] [id number] [place] [address] Aug, [facility] [address] [id number] [place] [address] Aug, [facility] [id number] [place] [address] Aug, [facility] [address] [id number] [place] [address] Jul, [facility] [id number] [place] [address] Jul, [facility] [address] [id number] [place] [address] Jul, [facility] [address] [id number] [place] [address] Jul, [facility] [address] [id number] [place] [address] Jul, [facility] [address] [id number] [place] [address] Apr, [facility] [address] [id number] [place] [address] Apr, [facility] [address] [id number] [place] [address] Mar, [facility] [address] [id number] [place] [address] Mar, [facility] [address] [id number] [place] [address] February, [facility] [address] [id number] [place] [address] Dec, [facility] [address] [id number] [place] [address] Dec, [facility] [address] [id number] [place] [address] Dec, [facility] [address] [id number] [place] [address] Oct, [facility] [address] [id number] [place] [address] Oct, [facility] [address] [id number] [place] [address] Sep, [facility] [address] [id number] [place] [address] Aug, [facility] [address] [id number] [place] [address] Aug, [facility] [address] [id number] [place] [address] Aug, [facility] [address] [id number] [place] [address] Aug, [facility] [address] [id number] [place] [address] Aug, [facility] [address] [id number] [place] [address] Aug, [facility] [address] [id number] [place] [address] Aug, [facility] [address] [id number] [place] [address] Jul, [facility] [address] [id number] [place] [address] Jul, [facility] [address] [id number] [place] [address] Jul, [facility] [address] [id number] [place] [address] Jun, [facility] [address] [id number] [place] [address] Apr, [facility] [address] [id number] [place] [address] Apr, [facility] [address] [id number] [place] [address] Apr, [facility] [address] [id number] [place] [address] Mar, [facility] [address] [id number] [place] [address] Mar, [facility] [address] [id number] [place] [address] Jan, [facility] [address] [id number] [place] [address] Dec, [facility] [address] [id number] [place] [address] May, [facility] [address] [id number] [place] [address] Sep, [facility] [address] [facility] [id number] [place] [address] Sep, [facility] [address] [id number] [place] [address] Aug, [facility] [id number] [place] [address] Jul, [facility] [id number] [place] [address] Jul, [facility] [address] [id number] [place] [address] Apr, [facility] [id number] [place] [address] Jan, [facility] [id number] [place] [address] Aug, [facility] [id number] [place] [address] Aug, [facility] [id number] [place] [address] Aug, [facility] [id number] [place] [address] Aug, [facility] [id number] [place] [address] Jul, [facility] [id number] [place] [address] May, [facility] [address] [id number] [place] [address] Apr, [facility] [id number] [place] [address] February, [facility] [address] [facility] [id number] [place] [address] Dec, IMMUNIZATIONS No Known Immunizations SOCIAL HISTORY [...] stones 2014 Hospitalization History Suicidal ideation/intentional overdo [facility] 03/16/18 Hospitalization History Behavorial hospitalization [facility] 03/2018
--- OUTSIDE RECORDS SUMMARY | 2020-02-24 12:23 | XMS REPORT ---
Author Author Reena SHAFFER Organization [facility] Address [address] [place] [address] Care Team Providers Care Perianesthesia Rn Name Role Phone DEONDRE SHAFFER Unavailable PROBLEMS Type Condition ICD9-CM Code ILK54-PO Code Onset Dates Condition S tatus SNOMED Code Problem Hypertension I10 Active 7093895 3 Problem Bipolar II disorder F31.81 Active 34160532 Problem Arthritis M19.90 Active 6374905 Problem Migraine G43.909 Active 45691701 Problem Lumbago with sciatica, unspecified side M54.40 Active 099371125 Problem Other chronic pain G89.29 Active 8 8036996 Problem Anxiety F41.9 Active 63879817 Problem IV drug abuse F19.10 Active 453899 006 Problem Essential hypertension I10 Active 57173110 Problem Opioid use disorder, severe, in early remission, dependenc e F11.21 Active 958330322 Problem Benzodiazepine dependence F13.20 Acti ve 491193978 Problem Moderate episode of recurrent major depressive disorder F33.1 Active 013878523 Problem Affective disorder F39 Active 4 1525832 Problem Gastroesophageal reflux disease without esophagitis K21.9 Active 135394353 Problem Psoriasis L40.9 Active 1370449 ALLERGIES No Information ENCOUNTERS Encounter Location Date Diagnosis [facility] [address] [id number] [place] [address] Nov, Opioid use disorder, severe, in early remission, dependence F11.21 [facility] [address] [id number] [place] [address] Nov, Lipoma of right upper extremity D17.21 [facility] [address] [facility] [place] [address] 18 Nov, 2019 Opioid use disorder, severe, in early re mission, dependence F11.21 [facility] [id number] [place] [address] Nov, [facility] [address] [facility] [place] [address] Nov, [facility] [id number] [place] [address] Nov, Opioid use disorder, severe, in early re mission, dependence F11.21 [facility] [id number] [place] [address] 04 Nov, 2019 Opioid use disorder, severe, in early re mission, dependence F11.21 [facility] [id number] [place] [address] Oct, [facility] [id number] [place] [address] Oct, [facility] [id number] [place] [address] Oct, [facility] [id number] [place] [address] Oct, Opioid use disorder, severe, in early re mission, dependence F11.21 [facility] [id number] [place] [address] Oct, Opioid use disorder, severe, in early re mission, dependence F11.21 and Bipolar II disorder F31.81 [facility] [id number] [place] [address] Oct, [facility] [id number] [place] [address] Oct, Opioid use disorder, severe, in early re mission, dependence F11.21 and Bipolar II disorder F31.81 [facility] [address] [address] 14 Oct, 2019 Opioid use disorder, severe, in early re mission, dependence F11.21 [facility] [id number] [place] [address] 08 Oct, 2019 Opioid use disorder, severe, in early re mission, dependence F11.21 ; Psoriasis L40.9 ; Lipoma of right upper extremity D17.21 and Abscess L02.91 [address] [place] [address] Sep, Opioid use disorder, severe, in early re mission, dependence F11.21 and Benzodiazepine dependence F13.20 [address] [place] [address] Sep, Opioid use disorder, severe, in early re mission, dependence F11.21 and Bipolar II disorder F31.81 [address] [place] [address] Sep, Opioid use disorder, severe, in early re mission, dependence F11.21 [address] [place] [address] Sep, Opioid use disorder, severe, in early re mission, dependence F11.21 and Bipolar II disorder F31.81 [address] [address] [place] [address] Sep, Opioid use disorder, severe, in early re mission, dependence F11.21 [place] [address] [place] [address] Aug, Opioid use disorder, severe, in early re mission, dependence F11.21 and Bipolar II disorder F31.81 [address] [place] [address] [place] [address] Aug, Opioid use disorder, severe, in early re mission, dependence F11.21 [address] [place] [address] [address] 14 Aug, 2019 Opioid use disorder, severe, in early re mission, dependence F11.21 [address] [place] [address] [place] [address] 07 Aug, 2019 Opioid use disorder, severe, in early re mission, dependence F11.21 [address] [place] [id number] Jul, Opioid use disorder, severe, in early re mission, dependence F11.21 [facility] [address] [address] Jul, Opioid use disorder, severe, in early re mission, dependence F11.21 [facility] [id number] [place] [address] Jul, Opioid use disorder, severe, in early re mission, dependence F11.21 [facility] [address] [address] Jul, Opioid use disorder, severe, in early re mission, dependence F11.21 [facility] [address] [address] Jul, Opioid use disorder, severe, in early re mission, dependence F11.21 [facility] [address] [address] Jul, Opioid use disorder, severe, in early re mission, dependence F11.21 [facility] [id number] [place] [address] Jul, Opioid use disorder, severe, in early re mission, dependence F11.21 [facility] [id number] [place] [address] Jul, Opioid use disorder, severe, in early re mission, dependence F11.21 [facility] [id number] [place] [address] Jul, [facility] [address] [address] Jul, [facility] [address] [address] Jun, Opioid use disorder, severe, in early re mission, dependence F11.21 [facility] [id number] [place] [address] Jun, Opioid use disorder, severe, in early re mission, dependence F11.21 [facility] [address] [address] Jun, [facility] [address] [address] Jun, [facility] [address] [address] Jun, Bipolar II disorder F31.81 ; IV drug abu se F19.10 and Opioid use disorder, severe, in early remission, dependence F11.21 [facility] [address] [address] Jun, [facility] [address] [address] May, [address] [address] May, Bipolar II disorder F31.81 [address] [address] [address] May, Bipolar II disorder F31.81 and Hypertens ion I10 [address] [address] Apr, [facility] [address] [place], [place] [address] 57 February, IV drug abuse F19.10 ; Screen for STD (sexually transmitted disease) Z11.3 and Unprotected sex Z72.51 [address] [address] [address] Dec, [facility] [address] [address] Jul, Moderate episode of recurrent major depr essive disorder F33.1 [facility] [address] [address] May, [facility] [address] [address] Apr, Moderate episode of recurrent major depr essive disorder F33.1 [facility] [address] [address] Apr, Moderate episode of recurrent major depr essive disorder F33.1 [facility] [id number] [place] [address] Apr, [facility] [id number] [place] [address] Apr, Moderate episode of recurrent major depr essive disorder F33.1 [facility] [address] [address] Mar, [facility] [address] [address] Mar, Moderate episode of recurrent major depr essive disorder F33.1 and Hypertension I10 [facility] [address] [address] Mar, Bipolar II disorder F31.81 [facility] [address] [address] February, [facility] [address] [address] February, [facility] [address] [address] February, [facility] [address] [address] Dec, [facility] [address] [address] Nov, Psoriasis L40.9 [facility] [id number] [place] [address] Nov, [facility] [address] [address] Nov, Anxiety F41.9 [facility] [address] [address] Oct, [facility] [address] [address] Oct, [facility] [id number] [place] [address] Oct, [facility] [id number] [place] [address] Oct, [facility] [id number] [place] [address] Sep, [facility] [id number] [place] [address] Sep, [facility] [address] [id number] [place] [id number] Aug, Dental examination Z01.20 and Dental car ies K02.9 [facility] [address] [address] Aug, [facility] [address] [address] Jul, [facility] [address] [address] Jul, [facility] [address] [address] Jul, Moderate episode of recurrent major depr essive disorder F33.1 [facility] [address] [address] 18 Jun, 2017 Moderate episode of recurrent major depr essive disorder F33.1 and Anxiety F41.9 [facility] [id number] [place] [address] 14 Jun, 2017 [facility] [address] [address] 11 Jun, 2017 Anxiety F41.9 [facility] [address] [address] Jun, Moderate episode of recurrent major depr essive disorder F33.1 [facility] [address] [address] Jun, [facility] [address] [address] May, Moderate episode of recurrent major depr essive disorder F33.1 [facility] [address] [facility] [id number] [place] [address] May, [facility] [address] [address] May, Encounter for well woman exam with nessa najera gynecological exam Z01.419 and Anxiety F41.9 [facility] [address] [address] Apr, [facility] [address] [address] Mar, Affective disorder F39 ; Benzodiazepine dependence F13.20 and High risk sexual behavior Z72.51 [facility] [address] [address] 17 Jan, 2017 Dyspepsia R10.13 ; Gastroesophageal refl ux disease without esophagitis K21.9 and Affective disorder F39 [facility] [address] [address] Jan, Affective disorder F39 [address] [address] 10 Dec, 2016 Moderate episode of recurrent major depr essive disorder F33.1 [facility] [address] [address] 14 Nov, 2016 Unspecified episodic mood disorder F39 a nd Essential hypertension I10 [facility] [address] [address] 02 Nov, 2016 Affective disorder F39 ; Anxiety F41.9 a nd Unspecified episodic mood disorder F39 [address] [place] [address] [address] Oct, [facility] [address] [address] Oct, [facility] [address] [place] [address] 57 Sep, Dysuria R30.0 [place] [place] [address] [address] Sep, [facility] [address] [address] Aug, [facility] [address] [address] Aug, [facility] [address] [address] Jul, [facility] [id number] [place] [address] Jul, Acute non-recurrent maxillar y sinusitis J01.00 and Dysuria R30.0 [facility] [address] [address] Jul, Affective disorder F39 ; Essential hyper tension I10 ; Lumbago with sciatica, unspecified side M54.40 ; Other chronic pain G89.29 and Acute vaginitis N76.0 [facility] [address] [address] Jun, [facility] [address] [address] Jun, [facility] [address] [address] Jun, [facility] [id number] [place] [address] May, Anxiety F41.9 [facility] [address] [address] May, [facility] [address] [address] May, [facility] [address] [address] Apr, [facility] [address] [address] Apr, Affective disorder F39 [facility] [id number] [place] [address] 08 Apr, 2016 [facility] [address] [address] Apr, Unspecified episodic mood disorder F39 [facility] [id number] [place] [address] Jan, Hypertension I10 [facility] [address] [address] Jan, Benzodiazepine dependence F13.20 and Art hritis M19.90 [facility] [address] [address] Nov, [facility] [address] [address] Jul, Migraine G43.909 ; Hypertension I10 and Arthritis M19.90 [facility] [address] [address] Jun, [facility] [address] [address] Jun, [facility] [address] [address] Jun, [facility] [address] [address] May, [facility] [address] [address] Jan, [facility] [address] [address] Jan, [facility] [address] [address] Nov, [facility] [address] [address] Nov, [facility] [address] [address] Oct, [facility] [address] [place] [address] Oct, [facility] [address] [facility] [id number] [facility] [place] [address] Oct, [facility] [address] [facility] [id number] [place] [address] Oct, [facility] [address] [id number] [place] [address] Aug, [facility] [address] [id number] [place] [address] Aug, [facility] [address] [facility] [id number] [facility] [place] [address] Aug, [facility] [address] [id number] [place] [address] Aug, [facility] [address] [id number] [place] [address] Aug, [facility] [address] [id number] [place] [address] Aug, [facility] [address] [id number] [place] [address] Aug, [facility] [address] [id number] [place] [address] May, [facility] [address] [id number] [place] [address] May, [facility] [address] [id number] [place] [address] May, [facility] [address] [facility] [id number] [place] [address] May, [facility] [address] [id number] [place] [address] May, [facility] [address] [id number] [place] [address] Apr, [facility] [address] [id number] [place] [address] Apr, [facility] [address] [id number] [place] [address] Apr, [facility] [address] [facility] [id number] [place] [address] Apr, [facility] [address] [id number] [place] [address] Apr, [facility] [address] [id number] [place] [address] Apr, [facility] [address] [facility] [id number] [place] [address] Apr, [facility] [address] [id number] [place] [address] Apr, [facility] [address] [id number] [place] [address] Mar, [facility] [address] [id number] [place] [address] Mar, [facility] [address] [id number] [place] [address] Mar, [facility] [address] [id number] [place] [address] Mar, [facility] [address] [id number] [place] [address] Mar, [facility] [address] [id number] [place] [address] Mar, [facility] [address] [id number] [place] [address] Mar, [facility] [address] [facility] [id number] [place] [address] February, [facility] [address] [id number] [place] [address] February, [facility] [address] [id number] [place] [address] Jan, [facility] [address] [id number] [place] [address] Jan, [facility] [address] [id number] [facility] [address] Jan, [facility] [address] [facility] [id number] [facility] [place] [address] Jan, [facility] [address] [facility] [id number] [facility] [place] [address] Jan, [facility] [address] [facility] [id number] [facility] [place] [address] Jan, [facility] [address] [facility] [id number] [facility] [place] [address] Dec, [facility] [address] [facility] [id number] [place] [address] Dec, [facility] [address] [facility] [id number] [place] [address] Dec, [facility] [address] [id number] [place] [address] Nov, [facility] [address] [facility] [id number] [place] [address] Nov, [facility] [address] [id number] [place] [address] Nov, [facility] [address] [id number] [place] [address] Nov, [facility] [address] [id number] [place] [address] Oct, [facility] [address] [facility] [id number] [place] [address] Oct, [facility] [address] [facility] [id number] [place] [address] Oct, [facility] [address] [facility] [id number] [place] [address] Oct, [facility] [address] [id number] [place] [address] Oct, [facility] [address] [id number] [place] [address] Oct, [facility] [address] [id number] [place] [address] Sep, [facility] [address] [id number] [place] [address] Sep, [facility] [address] [id number] [place] [address] Aug, [facility] [address] [id number] [place] [address] Aug, [facility] [address] [id number] [place] [address] Aug, [facility] [address] [id number] [place] [address] Aug, [facility] [address] [id number] [place] [address] Jul, [facility] [id number] [place] [address] Jul, [facility] [address] [id number] [place] [address] Jul, [facility] [address] [id number] [place] [address] Jul, [facility] [address] [id number] [place] [address] Jul, [facility] [address] [id number] [place] [address] Apr, [facility] [address] [id number] [place] [address] Apr, [facility] [id number] [place] [address] Mar, [facility] [address] [id number] [place] [address] Mar, [facility] [address] [id number] [place] [address] February, [facility] [address] [id number] [place] [address] Dec, [facility] [address] [id number] [place] [address] Dec, [facility] [address] [id number] [place] [address] Dec, [facility] [address] [id number] [place] [address] Oct, [facility] [address] [id number] [place] [address] Oct, [facility] [address] [id number] [place] [address] Sep, [facility] [address] [id number] [place] [address] Aug, [facility] [id number] [place] [address] Aug, [facility] [address] [id number] [place] [address] Aug, [facility] [address] [id number] [place] [address] Aug, [facility] [address] [id number] [place] [address] Aug, [facility] [address] [id number] [place] [address] Aug, [facility] [address] [id number] [place] [address] Aug, [facility] [address] [id number] [place] [address] Jul, [facility] [address] [id number] [place] [address] Jul, [facility] [address] [id number] [place] [address] Jul, [facility] [address] [id number] [place] [address] Jun, [facility] [address] [facility] [id number] [place] [address] Apr, [facility] [address] [id number] [place] [address] 17 Apr, 2012 [facility] [address] [id number] [place] [address] Apr, [facility] [address] [id number] [place] [address] Mar, [facility] [address] [id number] [place] [address] Mar, [facility] [address] [id number] [place] [address] Jan, [facility] [address] [id number] [place] [address] Dec, [facility] [address] [id number] [place] [address] May, [facility] [address] [id number] [place] [address] Sep, [facility] [address] [id number] [place] [address] Sep, [facility] [address] [id number] [place] [address] Aug, [facility] [address] [id number] [place] [address] Jul, [facility] [address] [id number] [place] [address] Jul, [facility] [address] [id number] [place] [address] 15 Apr, 2010 [facility] [address] [id number] [place] [address] 12 Jan, 2010 [facility] [address] [id number] [place] [address] Aug, [facility] [address] [id number] [place] [address] Aug, [facility] [address] [id number] [place] [address] Aug, [facility] [address] [id number] [place] [address] Aug, [facility] [address] [id number] [place] [address] Jul, [facility] [address] [id number] [place] [address] May, [facility] [address] [id number] [place] [address] Apr, [facility] [address] [id number] [place] [address] February, [facility] [address] [id number] [place] [address] Dec, IMMUNIZATIONS No Known Immunizations SOCIAL HISTORY [...] stones 2013 Hospitalization History Suicidal ideation/intentional overdo [facility] 03/16/18 Hospitalization History Behavorial hospitalization [facility] 03/2018
--- OUTSIDE RECORDS SUMMARY | 2020-02-24 12:23 | XMS REPORT ---
Author Author Reena SHAFFER Organization [facility] Address [address] [place] [address] Care Team Providers Care Caser Name Role Phone DEONDRE SHAFFER Unavailable PROBLEMS Type Condition ICD9-CM Code RYY09-VA Code Onset Dates Condition S tatus SNOMED Code Problem Hypertension I10 Active 9221732 3 Problem Bipolar II disorder F31.81 Active 41868624 Problem Arthritis M19.90 Active 8228591 Problem Migraine G43.909 Active 84645085 Problem Lumbago with sciatica, unspecified side M54.40 Active 995125341 Problem Other chronic pain G89.29 Active 8 0812083 Problem Anxiety F41.9 Active 46701821 Problem IV drug abuse F19.10 Active 350229 006 Problem Essential hypertension I10 Active 09472793 Problem Opioid use disorder, severe, in early remission, dependenc e F11.21 Active 465506970 Problem Benzodiazepine dependence F13.20 Acti ve 705468746 Problem Moderate episode of recurrent major depressive disorder F33.1 Active 231683323 Problem Affective disorder F39 Active 4 1760507 Problem Gastroesophageal reflux disease without esophagitis K21.9 Active 665131486 Problem Psoriasis L40.9 Active 2685345 ALLERGIES No Information ENCOUNTERS Encounter Location Date Diagnosis [facility] [id number] [place] [address] Nov, [facility] [address] [id number] [place] [address] Nov, Opioid use disorder, severe, in early re mission, dependence F11.21 [facility] [address] [id number] [place] [address] Oct, [facility] [address] [id number] [place] [address] Oct, [facility] [address] [address] 28 Oct, 2019 [facility] [address] [address] 28 Oct, 2019 Opioid use disorder, severe, in early re mission, dependence F11.21 [place] [address] [address] 24 Oct, 2019 Opioid use disorder, severe, in early re mission, dependence F11.21 and Bipolar II disorder F31.81 [place] [address] [address] 23 Oct, 2019 [place] [address] [address] 17 Oct, 2019 Opioid use disorder, severe, in early re mission, dependence F11.21 and Bipolar II disorder F31.81 [place] [address] [address] 14 Oct, 2019 Opioid use disorder, severe, in early re mission, dependence F11.21 [place] [address] [address] 08 Oct, 2019 Opioid use disorder, severe, in early re mission, dependence F11.21 ; Psoriasis L40.9 ; Lipoma of right upper extremity D17.21 and Abscess L02.91 [place] [address] [address] Sep, Opioid use disorder, severe, in early re mission, dependence F11.21 and Benzodiazepine dependence F13.20 [place] [address] [address] Sep, Opioid use disorder, severe, in early re mission, dependence F11.21 and Bipolar II disorder F31.81 [place] [address] [address] Sep, Opioid use disorder, severe, in early re mission, dependence F11.21 [place] [address] [address] Sep, Opioid use disorder, severe, in early re mission, dependence F11.21 and Bipolar II disorder F31.81 [facility] [address] [address] Sep, Opioid use disorder, severe, in early re mission, dependence F11.21 [facility] [address] [address] Aug, Opioid use disorder, severe, in early re mission, dependence F11.21 and Bipolar II disorder F31.81 [facility] [address] [address] Aug, Opioid use disorder, severe, in early re mission, dependence F11.21 [facility] [address] [address] Aug, Opioid use disorder, severe, in early re mission, dependence F11.21 [facility] [address] [address] Aug, Opioid use disorder, severe, in early re mission, dependence F11.21 [facility] [address] [address] Jul, Opioid use disorder, severe, in early re mission, dependence F11.21 [facility] [address] [address] Jul, Opioid use disorder, severe, in early re mission, dependence F11.21 [facility] [address] [address] Jul, Opioid use disorder, severe, in early re mission, dependence F11.21 [facility] [address] [address] Jul, Opioid use disorder, severe, in early re mission, dependence F11.21 [facility] [address] [address] 14 Jul, 2019 Opioid use disorder, severe, in early re mission, dependence F11.21 [facility] [address] [address] Jul, Opioid use disorder, severe, in early re mission, dependence F11.21 [facility] [address] [address] Jul, Opioid use disorder, severe, in early re mission, dependence F11.21 [facility] [address] [address] Jul, Opioid use disorder, severe, in early re mission, dependence F11.21 [facility] [address] [address] Jul, [facility] [address] [address] Jul, [facility] [address] [address] Jun, Opioid use disorder, severe, in early re mission, dependence F11.21 [facility] [address] [address] Jun, Opioid use disorder, severe, in early re mission, dependence F11.21 [facility] [address] [address] Jun, [facility] [address] [address] Jun, [facility] [address] [address] Jun, Bipolar II disorder F31.81 ; IV drug abu se F19.10 and Opioid use disorder, severe, in early remission, dependence F11.21 [facility] [address] [address] Jun, [facility] [address] [address] May, [facility] [address] [address] May, Bipolar II disorder F31.81 [facility] [address] [address] May, Bipolar II disorder F31.81 and Hypertens ion I10 [facility] [address] [address] Apr, [facility] [address] [place], [place] [address] 57 February, IV drug abuse F19.10 ; Screen for STD (sexually transmitted disease) Z11.3 and Unprotected sex Z72.51 [facility] [address] [address] Dec, [place] [address] [address] Jul, Moderate episode of recurrent major depr essive disorder F33.1 [facility] [address] [address] May, [facility] [address] [address] Apr, Moderate episode of recurrent major depr essive disorder F33.1 [facility] [address] [address] Apr, Moderate episode of recurrent major depr essive disorder F33.1 [facility] [address] [address] Apr, [facility] [address] [address] Apr, Moderate episode of recurrent major depr essive disorder F33.1 [facility] [address] [address] Mar, [facility] [address] [address] Mar, Moderate episode of recurrent major depr essive disorder F33.1 and Hypertension I10 [facility] [address] [address] Mar, Bipolar II disorder F31.81 [facility] [id number] [place] [address] February, [facility] [id number] [place] [address] February, [facility] [id number] [place] [address] February, [facility] [id number] [place] [address] Dec, [facility] [id number] [place] [address] Nov, Psoriasis L40.9 [facility] [id number] [place] [address] Nov, [facility] [id number] [place] [address] Nov, Anxiety F41.9 [facility] [id number] [place] [address] Oct, [facility] [id number] [place] [address] Oct, [facility] [id number] [place] [address] Oct, [facility] [id number] [place] [address] Oct, [facility] [id number] [place] [address] Sep, [facility] [id number] [place] [address] Sep, [facility] [address] [id number] [place] [id number] Aug, Dental examination Z01.20 and Dental car ies K02.9 [facility] [id number] [place] [address] Aug, [facility] [id number] [place] [address] Jul, [facility] [id number] [place] [address] Jul, [facility] [address] [address] Jul, Moderate episode of recurrent major depr essive disorder F33.1 [facility] [address] [address] Jun, Moderate episode of recurrent major depr essive disorder F33.1 and Anxiety F41.9 [facility] [address] [address] Jun, [facility] [address] [address] Jun, Anxiety F41.9 [facility] [address] [address] Jun, Moderate episode of recurrent major depr essive disorder F33.1 [facility] [address] [address] Jun, [facility] [address] [address] May, Moderate episode of recurrent major depr essive disorder F33.1 [facility] [address] [facility] [id number] [address] [place] [address] May, [facility] [id number] [place] [address] May, Encounter for well woman exam with nessa najera gynecological exam Z01.419 and Anxiety F41.9 [facility] [id number] [place] [address] Apr, [facility] [address] [address] Mar, Affective disorder F39 ; Benzodiazepine dependence F13.20 and High risk sexual behavior Z72.51 [facility] [address] [address] Jan, Dyspepsia R10.13 ; Gastroesophageal refl ux disease without esophagitis K21.9 and Affective disorder F39 [facility] [address] [address] Jan, Affective disorder F39 [facility] [address] [address] Dec, Moderate episode of recurrent major depr essive disorder F33.1 [facility] [address] [address] 14 Nov, 2016 Unspecified episodic mood disorder F39 a nd Essential hypertension I10 [place] [address] [address] 02 Nov, 2016 Affective disorder F39 ; Anxiety F41.9 a nd Unspecified episodic mood disorder F39 [facility] [address] [address] Oct, [facility] [address] [address] Oct, [facility] [address] [place] [address] 57 Sep, Dysuria R30.0 [place] [address] [address] Sep, [facility] [address] [address] Aug, [facility] [address] [address] Aug, [facility] [address] [address] Jul, [facility] [address] [facility] [id number] [address] [place] [address] Jul, Acute non-recurrent maxillar y sinusitis J01.00 and Dysuria R30.0 [facility] [address] [address] Jul, Affective disorder F39 ; Essential hyper tension I10 ; Lumbago with sciatica, unspecified side M54.40 ; Other chronic pain G89.29 and Acute vaginitis N76.0 [facility] [address] [address] 22 Jun, 2016 [facility] [address] [address] Jun, [facility] [address] [address] Jun, [facility] [address] [facility] [id number] [address] [place] [address] May, Anxiety F41.9 [facility] [address] [address] May, [facility] [address] [address] May, [facility] [address] [address] Apr, [facility] [address] [address] Apr, Affective disorder F39 [facility] [address] [address] Apr, [facility] [address] [address] Apr, Unspecified episodic mood disorder F39 [place] [address] [address] Jan, Hypertension I10 [facility] [address] [address] Jan, Benzodiazepine dependence F13.20 and Art hritis M19.90 [facility] [address] [address] Nov, [facility] [address] [address] Jul, Migraine G43.909 ; Hypertension I10 and Arthritis M19.90 [facility] [address] [id number] [place] [address] Jun, [facility] [address] [id number] [place] [address] Jun, [facility] [address] [id number] [place] [address] Jun, [facility] [id number] [place] [address] May, [facility] [address] [id number] [place] [address] Jan, [facility] [id number] [place] [address] Jan, [facility] [address] [id number] [place] [address] Nov, [facility] [id number] [place] [address] Nov, [facility] [address] [id number] [place] [address] Oct, [facility] [id number] [place] [address] Oct, [facility] [address] [id number] [place] [address] Oct, [facility] [id number] [place] [address] Oct[facility] [address] [id number] [place] [address] Aug, [facility] [address] [id number] [place] [address] Aug, [facility] [id number] [place] [address] Aug, [facility] [id number] [place] [address] Aug, [facility] [address] [id number] [place] [address] Aug, [facility] [address] [id number] [facility] [place] [address] Aug, [facility] [address] [facility] [id number] [facility] [place] [address] Aug, [facility] [address] [id number] [facility] [place] [address] May, [facility] [address] [facility] [id number] [facility] [place] [address] May, [facility] [address] [facility] [id number] [facility] [place] [address] May, [facility] [address] [id number] [place] [address] May, [facility] [address] [id number] [place] [address] May, [facility] [address] [id number] [place] [address] Apr, [facility] [address] [facility] [id number] [facility] [place] [address] Apr, [facility] [address] [id number] [place] [address] Apr, [facility] [address] [id number] [place] [address] Apr, [facility] [address] [id number] [place] [address] Apr, [facility] [address] [facility] [id number] [place] [address] Apr, [facility] [address] [id number] [place] [address] Apr, [facility] [address] [facility] [id number] [place] [address] Apr, [facility] [address] [id number] [place] [address] Mar, [facility] [address] [facility] [id number] [place] [address] Mar, [facility] [address] [facility] [id number] [place] [address] Mar, [facility] [address] [id number] [place] [address] Mar, [facility] [address] [id number] [place] [address] Mar, [facility] [address] [facility] [id number] [place] [address] Mar, [facility] [address] [id number] [place] [address] Mar, [facility] [address] [id number] [place] [address] February, [facility] [address] [id number] [place] [address] February, [facility] [address] [id number] [place] [address] Jan, [facility] [address] [id number] [place] [address] Jan, [facility] [address] [id number] [place] [address] Jan, [facility] [address] [id number] [place] [address] Jan, [facility] [address] [id number] [place] [address] Jan, [facility] [address] [facility] [id number] [place] [address] Jan, [facility] [address] [id number] [place] [address] Dec, [facility] [address] [id number] [place] [address] Dec, [facility] [address] [id number] [place] [address] Dec, [facility] [address] [facility] [id number] [place] [address] Nov, [facility] [address] [id number] [place] [address] Nov, [facility] [address] [id number] [place] [address] Nov, [facility] [address] [id number] [place] [address] Nov, [facility] [address] [facility] [id number] [place] [address] Oct, [facility] [address] [id number] [place] [address] Oct, [facility] [address] [id number] [place] [address] Oct, [facility] [address] [id number] [place] [address] Oct, [facility] [address] [id number] [place] [address] Oct, [facility] [address] [id number] [place] [address] Oct, [facility] [address] [id number] [place] [address] Sep, [facility] [address] [id number] [place] [address] Sep, [facility] [address] [id number] [place] [address] Aug, [facility] [address] [id number] [place] [address] Aug, [facility] [address] [id number] [place] [address] Aug, [facility] [address] [id number] [place] [address] Aug, [facility] [address] [id number] [place] [address] Jul, [facility] [address] [facility] [id number] [place] [address] Jul, [facility] [address] [id number] [place] [address] Jul, [facility] [address] [id number] [place] [address] Jul, [facility] [address] [id number] [place] [address] Jul, [facility] [address] [id number] [place] [address] Apr, [facility] [address] [id number] [place] [address] Apr, [facility] [address] [id number] [place] [address] Mar, [facility] [address] [id number] [place] [address] Mar, [facility] [address] [id number] [place] [address] February, [facility] [address] [id number] [place] [address] Dec, [facility] [address] [id number] [place] [address] Dec, [facility] [address] [id number] [place] [address] Dec, [facility] [address] [id number] [place] [address] Oct, [facility] [address] [id number] [place] [address] Oct, [facility] [address] [id number] [place] [address] Sep, [facility] [address] [id number] [place] [address] Aug, [facility] [address] [id number] [place] [address] Aug, [facility] [address] [id number] [place] [address] Aug, [facility] [address] [id number] [place] [address] Aug, [facility] [address] [id number] [place] [address] Aug, [facility] [address] [id number] [place] [address] Aug, [facility] [address] [id number] [place] [address] Aug, [facility] [address] [id number] [place] [address] Jul, [facility] [id number] [place] [address] Jul, [facility] [address] [id number] [place] [address] Jul, [facility] [address] [id number] [place] [address] Jun, [facility] [address] [id number] [place] [address] Apr, [facility] [address] [id number] [place] [address] Apr, [facility] [address] [id number] [place] [address] Apr, [facility] [address] [id number] [place] [address] Mar, [facility] [address] [id number] [place] [address] Mar, [facility] [address] [id number] [place] [address] Jan, [facility] [address] [id number] [place] [address] Dec, [facility] [address] [facility] [id number] [place] [address] May, [facility] [address] [facility] [id number] [place] [address] Sep, [facility] [address] [id number] [place] [address] Sep, [facility] [address] [id number] [place] [address] Aug, [facility] [address] [facility] [id number] [place] [address] Jul, [facility] [address] [id number] [place] [address] Jul, [facility] [address] [id number] [place] [address] Apr, [facility] [address] [id number] [place] [address] Jan, [facility] [address] [id number] [place] [address] Aug, [facility] [address] [id number] [place] [address] Aug, [facility] [address] [id number] [place] [address] Aug, [facility] [address] [id number] [place] [address] Aug, [facility] [address] [id number] [place] [address] Jul, [facility] [address] [id number] [place] [address] May, [facility] [address] [id number] [place] [address] 15 Apr, 2009 [facility] [address] [id number] [place] [address] February, [facility] [address] [id number] [place] [address] 13 Dec, 2008 IMMUNIZATIONS No Known Immunizations SOCIAL HISTORY Never [...] stones 2013 Hospitalization History Suicidal ideation/intentional overdo [facility] 03/16/18 Hospitalization History Behavorial hospitalization [facility] 03/2018
[2020-02-24 12:24] LABS: CALCIUM 10.5 MG/DL (8.5-10.1)
--- OUTSIDE RECORDS SUMMARY | 2020-02-24 12:24 | XMS REPORT ---
Author Author Reena SHAFFER Organization [facility] Address [address] [place] [address] Care Team Providers Care Operations Lead Name Role Phone DEONDRE SHAFFER Unavailable PROBLEMS Type Condition ICD9-CM Code EXH35-GY Code Onset Dates Condition S tatus SNOMED Code Problem Hypertension I10 Active 2099058 3 Problem Bipolar II disorder F31.81 Active 06649413 Problem Arthritis M19.90 Active 3313363 Problem Migraine G43.909 Active 29345785 Problem Lumbago with sciatica, unspecified side M54.40 Active 477294879 Problem Other chronic pain G89.29 Active 8 3850855 Problem Anxiety F41.9 Active 11855572 Problem IV drug abuse F19.10 Active 647299 006 Problem Essential hypertension I10 Active 65476321 Problem Opioid use disorder, severe, in early remission, dependenc e F11.21 Active 419040148 Problem Benzodiazepine dependence F13.20 Acti ve 482727298 Problem Moderate episode of recurrent major depressive disorder F33.1 Active 745190379 Problem Affective disorder F39 Active 4 7841801 Problem Gastroesophageal reflux disease without esophagitis K21.9 Active 733367240 Problem Psoriasis L40.9 Active 5527500 ALLERGIES No Information ENCOUNTERS Encounter Location Date Diagnosis [place] [id number] [place] [address] 17 Oct, 2019 Opioid use disorder, severe, in early re mission, dependence F11.21 and Bipolar II disorder F31.81 [facility] [address] [address] 14 Oct, 2019 Opioid use disorder, severe, in early re mission, dependence F11.21 [facility] [address] [address] 08 Oct, 2019 Opioid use disorder, severe, in early re mission, dependence F11.21 ; Psoriasis L40.9 ; Lipoma of right upper extremity D17.21 and Abscess L02.91 [place] [address] [address] Sep, Opioid use disorder, severe, in early re mission, dependence F11.21 and Benzodiazepine dependence F13.20 [place] [address] [address] Sep, Opioid use disorder, severe, in early re mission, dependence F11.21 and Bipolar II disorder F31.81 [place] [address] [address] Sep, Opioid use disorder, severe, in early re mission, dependence F11.21 [place] [address] [place] [id number] Sep, Opioid use disorder, severe, in early re mission, dependence F11.21 and Bipolar II disorder F31.81 [place] [address] [address] Sep, Opioid use disorder, severe, in early re mission, dependence F11.21 [place] [address] [address] Aug, Opioid use disorder, severe, in early re mission, dependence F11.21 and Bipolar II disorder F31.81 [place] [address] [address] Aug, Opioid use disorder, severe, in early re mission, dependence F11.21 [place] [address] [address] 14 Aug, 2019 Opioid use disorder, severe, in early re mission, dependence F11.21 [place] [address] [address] 07 Aug, 2019 Opioid use disorder, severe, in early re mission, dependence F11.21 [place] [address] [address] Jul, Opioid use disorder, severe, in early re mission, dependence F11.21 [facility] [id number] [place] [address] Jul, Opioid use disorder, severe, in early re mission, dependence F11.21 [facility] [id number] [place] [address] Jul, Opioid use disorder, severe, in early re mission, dependence F11.21 [facility] [address] [place] [address] Jul, Opioid use disorder, severe, in early re mission, dependence F11.21 [facility] [address] [address] Jul, Opioid use disorder, severe, in early re mission, dependence F11.21 [facility] [id number] [place] [address] Jul, Opioid use disorder, severe, in early re mission, dependence F11.21 [facility] [id number] [place] [address] Jul, Opioid use disorder, severe, in early re mission, dependence F11.21 [facility] [address] [place] [address] Jul, Opioid use disorder, severe, in early re mission, dependence F11.21 [facility] [address] [place] [address] Jul, [facility] [address] [address] Jul, [facility] [address] [place] [address] Jun, Opioid use disorder, severe, in early re mission, dependence F11.21 [facility] [id number] [place] [address] Jun, Opioid use disorder, severe, in early re mission, dependence F11.21 [facility] [address] [address] Jun, [facility] [address] [address] Jun, [place] [address] [address] Jun, Bipolar II disorder F31.81 ; IV drug abu se F19.10 and Opioid use disorder, severe, in early remission, dependence F11.21 [place] [address] [address] Jun, [place] [address] [address] May, [place] [address] [address] May, Bipolar II disorder F31.81 [place] [address] [address] May, Bipolar II disorder F31.81 and Hypertens ion I10 [place] [address] [address] Apr, [facility] [address] [place], [place] [id number] 57 February, IV drug abuse F19.10 ; Screen for STD (sexually transmitted disease) Z11.3 and Unprotected sex Z72.51 [place] [address] [address] Dec, [place] [address] [address] Jul, Moderate episode of recurrent major depr essive disorder F33.1 [place] [address] [address] May, [place] [address] [address] Apr, Moderate episode of recurrent major depr essive disorder F33.1 [place] [address] [address] Apr, Moderate episode of recurrent major depr essive disorder F33.1 [facility] [id number] [place] [address] Apr, [facility] [address] [address] Apr, Moderate episode of recurrent major depr essive disorder F33.1 [facility] [address] [address] Mar, [facility] [address] [address] Mar, Moderate episode of recurrent major depr essive disorder F33.1 and Hypertension I10 [facility] [address] [address] Mar, Bipolar II disorder F31.81 [facility] [address] [address] February, [facility] [address] [address] February, [facility] [address] [address] February, [facility] [address] [address] Dec, [facility] [address] [address] Nov, Psoriasis L40.9 [facility] [address] [place] [address] Nov, [facility] [address] [address] Nov, Anxiety F41.9 [facility] [address] [address] Oct, [facility] [address] [address] Oct, [facility] [address] [address] Oct, [facility] [address] [place] [address] Oct, [facility] [address] [place] [address] Sep, [facility] [address] [place] [address] Sep, [facility] [address] [id number] [place] [id number] Aug, Dental examination Z01.20 and Dental car ies K02.9 [facility] [address] [address] Aug, [facility] [address] [address] Jul, [facility] [address] [address] Jul, [facility] [address] [address] Jul, Moderate episode of recurrent major depr essive disorder F33.1 [facility] [address] [address] Jun, Moderate episode of recurrent major depr essive disorder F33.1 and Anxiety F41.9 [facility] [address] [place] [address] 14 Jun, 2017 [facility] [address] [address] Jun, Anxiety F41.9 [facility] [address] [address] Jun, Moderate episode of recurrent major depr essive disorder F33.1 [facility] [address] [address] Jun, [facility] [address] [address] May, Moderate episode of recurrent major depr essive disorder F33.1 [facility] [address] [facility] [id number] [place] [address] May, [facility] [address] [address] May, Encounter for well woman exam with nessa najera gynecological exam Z01.419 and Anxiety F41.9 [facility] [address] [address] Apr, [facility] [address] [address] Mar, Affective disorder F39 ; Benzodiazepine dependence F13.20 and High risk sexual behavior Z72.51 [facility] [address] [address] 17 Jan, 2017 Dyspepsia R10.13 ; Gastroesophageal refl ux disease without esophagitis K21.9 and Affective disorder F39 [facility] [address] [address] Jan, Affective disorder F39 [place] [address] [address] 10 Dec, 2016 Moderate episode of recurrent major depr essive disorder F33.1 [facility] [address] [address] 14 Nov, 2016 Unspecified episodic mood disorder F39 a nd Essential hypertension I10 [facility] [address] [address] 02 Nov, 2016 Affective disorder F39 ; Anxiety F41.9 a nd Unspecified episodic mood disorder F39 [place] [address] [address] Oct, [facility] [address] [address] Oct, [facility] [address] [place], [place] [id number] 57 Sep, Dysuria R30.0 [place] [address] [address] Sep, [facility] [address] [address] Aug, [facility] [address] [address] Aug, [facility] [address] [address] Jul, [facility] [address] [place] [id number] [place] [address] Jul, Acute non-recurrent maxillar y sinusitis J01.00 and Dysuria R30.0 [facility] [address] [address] Jul, Affective disorder F39 ; Essential hyper tension I10 ; Lumbago with sciatica, unspecified side M54.40 ; Other chronic pain G89.29 and Acute vaginitis N76.0 [facility] [address] [address] Jun, [facility] [address] [address] Jun, [facility] [address] [address] Jun, [facility] [address] [facility] [id number] [address] [place] [address] May, Anxiety F41.9 [facility] [address] [address] May, [facility] [address] [address] May, [facility] [address] [address] Apr, [facility] [address] [address] Apr, Affective disorder F39 [facility] [address] [address] Apr, [facility] [address] [address] Apr, Unspecified episodic mood disorder F39 [facility] [address] [address] Jan, Hypertension I10 [facility] [address] [address] Jan, Benzodiazepine dependence F13.20 and Art hritis M19.90 [facility] [address] [address] Nov, [facility] [address] [address] Jul, Migraine G43.909 ; Hypertension I10 and Arthritis M19.90 [facility] [address] [address] Jun, [facility] [address] [address] Jun, [facility] [address] [address] Jun, [facility] [address] [address] May, [facility] [address] [address] Jan, [facility] [address] [address] Jan, [facility] [address] [address] Nov, [facility] [address] [address] Nov, [facility] [address] [address] Oct, [facility] [address] [address] Oct, [facility] [place] [facility] [address] [facility] [id number] [facility] [place] [address] Oct, [facility] [place] [facility] [address] [facility] [id number] [facility] [place] [address] Oct, [facility] [place] [facility] [address] [facility] [id number] [place] [address] Aug, [facility] [place] [facility] [address] [facility] [id number] [place] [address] Aug, [facility] [place] [facility] [address] [facility] [id number] [facility] [place] [address] Aug, [facility] [place] [facility] [address] [id number] [facility] [place] [address] Aug, [facility] [place] [facility] [address] [id number] [place] [address] Aug, [facility] [place] [facility] [address] [id number] [facility] [place] [address] Aug, [facility] [place] [facility] [address] [facility] [id number] [place] [address] Aug, [facility] [place] [facility] [address] [id number] [facility] [place] [address] May, [facility] [place] [facility] [address] [id number] [place] [address] May, [facility] [place] [facility] [address] [id number] [place] [address] May, [facility] [place] [facility] [address] [facility] [id number] [place] [address] May, [facility] [place] [facility] [address] [facility] [id number] [place] [address] May, [facility] [place] [facility] [address] [facility] [id number] [place] [address] Apr, [facility] [place] [facility] [address] [id number] [facility] [place] [address] Apr, [facility] [place] [facility] [address] [id number] [place] [address] Apr, [facility] [place] [facility] [address] [id number] [place] [address] Apr, [facility] [place] [facility] [address] [facility] [id number] [place] [address] Apr, [facility] [place] [facility] [address] [id number] [place] [address] Apr, [facility] [place] [facility] [address] [id number] [place] [address] Apr, [facility] [place] [facility] [address] [id number] [place] [address] Apr, [facility] [place] [facility] [address] [id number] [place] [address] Mar, [facility] [place] [facility] [address] [id number] [place] [address] Mar, [facility] [place] [facility] [address] [id number] [place] [address] Mar, [facility] [place] [facility] [address] [id number] [place] [address] Mar, [facility] [place] [facility] [address] [id number] [place] [address] Mar, [facility] [place] [facility] [address] [id number] [place] [address] Mar, [facility] [place] [facility] [address] [id number] [place] [address] Mar, [facility] [place] [facility] [address] [id number] [place] [address] February, [facility] [place] [facility] [address] [id number] [place] [address] February, [facility] [place] [facility] [address] [id number] [place] [address] Jan, [facility] [place] [facility] [address] [id number] [place] [address] Jan, [facility] [place] [facility] [address] [id number] [place] [address] Jan, [facility] [place] [facility] [address] [id number] [place] [address] Jan, [facility] [place] [facility] [address] [id number] [place] [address] Jan, [facility] [place] [facility] [address] [id number] [place] [address] Jan, [facility] [place] [facility] [address] [id number] [place] [address] Dec, [facility] [place] [facility] [address] [id number] [place] [address] Dec, [facility] [place] [facility] [address] [id number] [place] [address] Dec, [facility] [place] [facility] [address] [id number] [place] [address] Nov, [facility] [place] [facility] [address] [id number] [place] [address] Nov, [facility] [place] [facility] [address] [id number] [place] [address] Nov, [facility] [place] [facility] [address] [id number] [place] [address] Nov, [facility] [place] [facility] [address] [id number] [place] [address] Oct, [facility] [place] [facility] [address] [id number] [place] [address] Oct, [facility] [place] [facility] [address] [id number] [place] [address] Oct, [facility] [place] [facility] [address] [id number] [place] [address] Oct, [facility] [place] [facility] [address] [id number] [place] [address] Oct, [facility] [place] [facility] [address] [id number] [place] [address] Oct, [facility] [place] [facility] [address] [id number] [place] [address] Sep, [facility] [place] [facility] [address] [id number] [place] [address] Sep, [facility] [place] [facility] [address] [id number] [place] [address] Aug, [facility] [place] [facility] [address] [id number] [place] [address] Aug, [facility] [place] [facility] [address] [id number] [place] [address] Aug, [facility] [place] [facility] [address] [id number] [place] [address] Aug, [facility] [place] [facility] [address] [id number] [place] [address] Jul, [facility] [place] [facility] [address] [id number] [place] [address] Jul, [facility] [place] [facility] [address] [id number] [place] [address] Jul, [facility] [place] [facility] [address] [id number] [place] [address] Jul, [facility] [place] [facility] [address] [id number] [place] [address] Jul, [facility] [place] [facility] [address] [id number] [place] [address] Apr, [facility] [place] [facility] [address] [id number] [place] [address] Apr, [facility] [place] [facility] [address] [id number] [place] [address] Mar, [facility] [address] [id number] [place] [address] Mar, [facility] [address] [id number] [place] [address] February, [facility] [address] [id number] [place] [address] Dec, [facility] [address] [id number] [place] [address] Dec, [facility] [address] [id number] [place] [address] Dec, [facility] [address] [id number] [place] [address] Oct, [facility] [address] [id number] [place] [address] Oct, [facility] [address] [id number] [place] [address] Sep, [facility] [address] [id number] [place] [address] Aug, [facility] [address] [id number] [place] [address] Aug, [facility] [address] [id number] [place] [address] Aug, [facility] [address] [id number] [place] [address] Aug, [facility] [address] [id number] [place] [address] Aug, [facility] [address] [id number] [place] [address] Aug, [facility] [address] [id number] [place] [address] Aug, [facility] [address] [id number] [place] [address] Jul, [facility] [id number] [place] [address] Jul, [facility] [address] [id number] [place] [address] Jul, [facility] [id number] [place] [address] Jun, [facility] [address] [id number] [place] [address] 23 Apr, 2012 [facility] [address] [id number] [place] [address] 17 Apr, 2012 [facility] [address] [id number] [place] [address] 10 Apr, 2012 [facility] [address] [id number] [place] [address] Mar, [facility] [address] [id number] [place] [address] Mar, [facility] [address] [id number] [place] [address] Jan, [facility] [address] [id number] [place] [address] Dec, [facility] [address] [id number] [place] [address] May, [facility] [address] [id number] [place] [address] Sep, [facility] [address] [id number] [place] [address] Sep, [facility] [address] [id number] [place] [address] Aug, [facility] [address] [id number] [place] [address] Jul, [facility] [address] [id number] [place] [address] Jul, [facility] [address] [id number] [place] [address] 15 Apr, 2010 [facility] [address] [id number] [place] [address] 12 Jan, 2010 [facility] [facility] [address] [id number] [place] [address] Aug, [facility] [address] [id number] [place] [address] Aug[facility] [address] [id number] [place] [address] Aug, [facility] [address] [id number] [place] [address] Aug, [facility] [address] [id number] [place] [address] Jul, [facility] [address] [id number] [place] [address] May, [facility] [address] [id number] [place] [address] Apr, [facility] [address] [id number] [place] [address] February, [facility] [address] [id number] [place] [address] Dec, IMMUNIZATIONS No Known Immunizations SOCIAL HISTORY [...] Hospitalization History Suicidal ideation/intentional overdo [facility] 03/16/18 Hospitalization History Behavorial hospitalization [facility] 03/2018
--- OUTSIDE RECORDS SUMMARY | 2020-02-24 12:24 | XMS REPORT ---
Author Author Reena SHAFFER Organization [facility] Address [address] [place] [address] Care Team Providers Care Psychology Physician Name Role Phone DEONDRE SHAFFER Unavailable PROBLEMS Type Condition ICD9-CM Code DZX67-NO Code Onset Dates Condition S tatus SNOMED Code Problem Hypertension I10 Active 6503951 3 Problem Bipolar II disorder F31.81 Active 89287002 Problem Arthritis M19.90 Active 4938332 Problem Migraine G43.909 Active 60442858 Problem Lumbago with sciatica, unspecified side M54.40 Active 570193981 Problem Other chronic pain G89.29 Active 8 2500100 Problem Anxiety F41.9 Active 31966406 Problem IV drug abuse F19.10 Active 475536 006 Problem Essential hypertension I10 Active 44341517 Problem Opioid use disorder, severe, in early remission, dependenc e F11.21 Active 424585705 Problem Benzodiazepine dependence F13.20 Acti ve 192577491 Problem Moderate episode of recurrent major depressive disorder F33.1 Active 838240805 Problem Affective disorder F39 Active 4 9901694 Problem Gastroesophageal reflux disease without esophagitis K21.9 Active 244224110 Problem Psoriasis L40.9 Active 4091459 ALLERGIES No Information ENCOUNTERS Encounter Location Date Diagnosis [place] [id number] [place] [address] 17 Oct, 2019 Opioid use disorder, severe, in early re mission, dependence F11.21 and Bipolar II disorder F31.81 [facility] [address] [address] 14 Oct, 2019 Opioid use disorder, severe, in early re mission, dependence F11.21 [facility] [address] [address] 08 Oct, 2019 Opioid use disorder, severe, in early re mission, dependence F11.21 ; Psoriasis L40.9 ; Lipoma of right upper extremity D17.21 and Abscess L02.91 [place] [address] [address] Sep, Opioid use disorder, severe, in early re mission, dependence F11.21 and Benzodiazepine dependence F13.20 [place] [address] [address] Sep, Opioid use disorder, severe, in early re mission, dependence F11.21 and Bipolar II disorder F31.81 [place] [address] [address] Sep, Opioid use disorder, severe, in early re mission, dependence F11.21 [place] [address] [address] [id number] Sep, Opioid use disorder, severe, in early re mission, dependence F11.21 and Bipolar II disorder F31.81 [place] [address] [address] Sep, Opioid use disorder, severe, in early re mission, dependence F11.21 [place] [address] [address] Aug, Opioid use disorder, severe, in early re mission, dependence F11.21 and Bipolar II disorder F31.81 [place] [address] [address] Aug, Opioid use disorder, severe, in early re mission, dependence F11.21 [place] [address] [address] 14 Aug, 2019 Opioid use disorder, severe, in early re mission, dependence F11.21 [place] [address] [address] 07 Aug, 2019 Opioid use disorder, severe, in early re mission, dependence F11.21 [place] [address] [address] Jul, Opioid use disorder, severe, in early re mission, dependence F11.21 [facility] [id number] [place] [address] Jul, Opioid use disorder, severe, in early re mission, dependence F11.21 [facility] [id number] [place] [address] Jul, Opioid use disorder, severe, in early re mission, dependence F11.21 [facility] [id number] [place] [address] Jul, Opioid use disorder, severe, in early re mission, dependence F11.21 [facility] [address] [address] Jul, Opioid use disorder, severe, in early re mission, dependence F11.21 [facility] [id number] [place] [address] Jul, Opioid use disorder, severe, in early re mission, dependence F11.21 [facility] [id number] [place] [address] Jul, Opioid use disorder, severe, in early re mission, dependence F11.21 [facility] [id number] [place] [address] Jul, Opioid use disorder, severe, in early re mission, dependence F11.21 [facility] [id number] [place] [address] Jul, [facility] [address] [address] Jul, [facility] [id number] [place] [address] Jun, Opioid use disorder, severe, in early re mission, dependence F11.21 [facility] [id number] [place] [address] Jun, Opioid use disorder, severe, in early re mission, dependence F11.21 [facility] [address] [address] Jun, [facility] [address] [address] Jun, [place] [address] [address] Jun, Bipolar II disorder F31.81 ; IV drug abu se F19.10 and Opioid use disorder, severe, in early remission, dependence F11.21 [place] [address] [address] Jun, [place] [address] [address] May, [place] [address] [address] May, Bipolar II disorder F31.81 [place] [address] [address] May, Bipolar II disorder F31.81 and Hypertens ion I10 [place] [address] [address] Apr, [facility] [address] [place], [place] [address] 57 February, IV drug abuse F19.10 ; Screen for STD (sexually transmitted disease) Z11.3 and Unprotected sex Z72.51 [place] [address] [address] Dec, [place] [address] [address] Jul, Moderate episode of recurrent major depr essive disorder F33.1 [place] [address] [address] May, [place] [address] [address] Apr, Moderate episode of recurrent major depr essive disorder F33.1 [place] [address] [address] Apr, Moderate episode of recurrent major depr essive disorder F33.1 [facility] [id number] [place] [address] Apr, [facility] [address] [address] Apr, Moderate episode of recurrent major depr essive disorder F33.1 [facility] [address] [address] Mar, [facility] [address] [address] Mar, Moderate episode of recurrent major depr essive disorder F33.1 and Hypertension I10 [facility] [address] [address] Mar, Bipolar II disorder F31.81 [facility] [address] [address] February, [facility] [address] [address] February, [facility] [address] [address] February, [facility] [address] [address] Dec, [facility] [address] [address] Nov, Psoriasis L40.9 [facility] [id number] [place] [address] Nov, [facility] [address] [address] Nov, Anxiety F41.9 [facility] [address] [address] Oct, [facility] [address] [address] Oct, [facility] [address] [address] Oct, [facility] [id number] [place] [address] Oct, [facility] [id number] [place] [address] Sep, [facility] [id number] [place] [address] Sep, [facility] [address] [id number] [place] [id number] Aug, Dental examination Z01.20 and Dental car ies K02.9 [facility] [address] [address] Aug, [facility] [address] [address] Jul, [facility] [address] [address] Jul, [facility] [address] [address] Jul, Moderate episode of recurrent major depr essive disorder F33.1 [facility] [address] [address] Jun, Moderate episode of recurrent major depr essive disorder F33.1 and Anxiety F41.9 [facility] [id number] [place] [address] 14 Jun, 2017 [facility] [address] [address] Jun, Anxiety F41.9 [facility] [address] [address] Jun, Moderate episode of recurrent major depr essive disorder F33.1 [facility] [address] [address] Jun, [facility] [address] [address] May, Moderate episode of recurrent major depr essive disorder F33.1 [facility] [address] [facility] [id number] [place] [address] May, [facility] [address] [address] May, Encounter for well woman exam with nessa najera gynecological exam Z01.419 and Anxiety F41.9 [facility] [address] [address] Apr, [facility] [address] [address] Mar, Affective disorder F39 ; Benzodiazepine dependence F13.20 and High risk sexual behavior Z72.51 [facility] [address] [address] 17 Jan, 2017 Dyspepsia R10.13 ; Gastroesophageal refl ux disease without esophagitis K21.9 and Affective disorder F39 [facility] [address] [address] Jan, Affective disorder F39 [place] [address] [address] 10 Dec, 2016 Moderate episode of recurrent major depr essive disorder F33.1 [facility] [address] [address] 14 Nov, 2016 Unspecified episodic mood disorder F39 a nd Essential hypertension I10 [facility] [address] [address] 02 Nov, 2016 Affective disorder F39 ; Anxiety F41.9 a nd Unspecified episodic mood disorder F39 [place] [address] [address] Oct, [facility] [address] [address] Oct, [facility] [address], [place] [address] 57 Sep, Dysuria R30.0 [place] [address] [address] Sep, [facility] [address] [address] Aug, [facility] [address] [address] Aug, [facility] [address] [address] Jul, [facility] [address] [place] [id number] [place] [address] Jul, Acute non-recurrent maxillar y sinusitis J01.00 and Dysuria R30.0 [facility] [address] [address] Jul, Affective disorder F39 ; Essential hyper tension I10 ; Lumbago with sciatica, unspecified side M54.40 ; Other chronic pain G89.29 and Acute vaginitis N76.0 [facility] [address] [address] Jun, [facility] [address] [address] Jun, [facility] [address] [address] Jun, [facility] [address] [facility] [id number] [address] [place] [address] May, Anxiety F41.9 [facility] [address] [address] May, [facility] [address] [address] May, [facility] [address] [address] Apr, [facility] [address] [address] Apr, Affective disorder F39 [facility] [address] [address] Apr, [facility] [address] [address] Apr, Unspecified episodic mood disorder F39 [facility] [address] [address] Jan, Hypertension I10 [facility] [address] [address] Jan, Benzodiazepine dependence F13.20 and Art hritis M19.90 [facility] [address] [address] Nov, [facility] [address] [address] Jul, Migraine G43.909 ; Hypertension I10 and Arthritis M19.90 [facility] [address] [address] Jun, [facility] [address] [address] Jun, [facility] [address] [address] Jun, [facility] [address] [address] May, [facility] [address] [address] Jan, [facility] [address] [address] Jan, [facility] [address] [address] Nov, [facility] [address] [address] Nov, [facility] [address] [address] Oct, [facility] [address] [address] Oct, [facility] [place] [facility] [address] [facility] [id number] [facility] [place] [address] Oct, [facility] [place] [facility] [address] [facility] [id number] [facility] [place] [address] Oct, [facility] [place] [facility] [address] [facility] [id number] [place] [address] Aug, [facility] [place] [facility] [address] [facility] [id number] [place] [address] Aug, [facility] [place] [facility] [address] [facility] [id number] [facility] [place] [address] Aug, [facility] [place] [facility] [address] [id number] [facility] [place] [address] Aug, [facility] [place] [facility] [address] [id number] [place] [address] Aug, [facility] [place] [facility] [address] [id number] [facility] [place] [address] Aug, [facility] [place] [facility] [address] [facility] [id number] [place] [address] Aug, [facility] [place] [facility] [address] [id number] [facility] [place] [address] May, [facility] [place] [facility] [address] [id number] [place] [address] May, [facility] [place] [facility] [address] [id number] [place] [address] May, [facility] [place] [facility] [address] [facility] [id number] [place] [address] May, [facility] [place] [facility] [address] [facility] [id number] [place] [address] May, [facility] [place] [facility] [address] [facility] [id number] [place] [address] Apr, [facility] [place] [facility] [address] [id number] [facility] [place] [address] Apr, [facility] [place] [facility] [address] [id number] [place] [address] Apr, [facility] [place] [facility] [address] [id number] [place] [address] Apr, [facility] [place] [facility] [address] [facility] [id number] [place] [address] Apr, [facility] [place] [facility] [address] [id number] [place] [address] Apr, [facility] [place] [facility] [address] [id number] [place] [address] Apr, [facility] [place] [facility] [address] [id number] [place] [address] Apr, [facility] [place] [facility] [address] [id number] [place] [address] Mar, [facility] [place] [facility] [address] [id number] [place] [address] Mar, [facility] [place] [facility] [address] [id number] [place] [address] Mar, [facility] [place] [facility] [address] [id number] [place] [address] Mar, [facility] [place] [facility] [address] [id number] [place] [address] Mar, [facility] [place] [facility] [address] [id number] [place] [address] Mar, [facility] [place] [facility] [address] [id number] [place] [address] Mar, [facility] [place] [facility] [address] [id number] [place] [address] February, [facility] [place] [facility] [address] [id number] [place] [address] February, [facility] [place] [facility] [address] [id number] [place] [address] Jan, [facility] [place] [facility] [address] [id number] [place] [address] Jan, [facility] [place] [facility] [address] [id number] [place] [address] Jan, [facility] [place] [facility] [address] [id number] [place] [address] Jan, [facility] [place] [facility] [address] [id number] [place] [address] Jan, [facility] [place] [facility] [address] [id number] [place] [address] Jan, [facility] [place] [facility] [address] [id number] [place] [address] Dec, [facility] [place] [facility] [address] [id number] [place] [address] Dec, [facility] [place] [facility] [address] [id number] [place] [address] Dec, [facility] [place] [facility] [address] [id number] [place] [address] Nov, [facility] [place] [facility] [address] [id number] [place] [address] Nov, [facility] [place] [facility] [address] [id number] [place] [address] Nov, [facility] [place] [facility] [address] [id number] [place] [address] Nov, [facility] [place] [facility] [address] [id number] [place] [address] Oct, [facility] [place] [facility] [address] [id number] [place] [address] Oct, [facility] [place] [facility] [address] [id number] [place] [address] Oct, [facility] [place] [facility] [address] [id number] [place] [address] Oct, [facility] [place] [facility] [address] [id number] [place] [address] Oct, [facility] [place] [facility] [address] [id number] [place] [address] Oct, [facility] [place] [facility] [address] [id number] [place] [address] Sep, [facility] [place] [facility] [address] [id number] [place] [address] Sep, [facility] [place] [facility] [address] [id number] [place] [address] Aug, [facility] [place] [facility] [address] [id number] [place] [address] Aug, [facility] [place] [facility] [address] [id number] [place] [address] Aug, [facility] [place] [facility] [address] [id number] [place] [address] Aug, [facility] [place] [facility] [address] [id number] [place] [address] Jul, [facility] [place] [facility] [address] [id number] [place] [address] Jul, [facility] [place] [facility] [address] [id number] [place] [address] Jul, [facility] [place] [facility] [address] [id number] [place] [address] Jul, [facility] [place] [facility] [address] [id number] [place] [address] Jul, [facility] [place] [facility] [address] [id number] [place] [address] Apr, [facility] [place] [facility] [address] [id number] [place] [address] Apr, [facility] [place] [facility] [address] [id number] [place] [address] Mar, [facility] [place] [facility] [address] [id number] [place] [address] Mar, [facility] [place] [facility] [address] [id number] [place] [address] February, [facility] [place] [facility] [address] [id number] [place] [address] Dec, [facility] [place] [facility] [address] [id number] [place] [address] Dec, [facility] [place] [facility] [address] [id number] [place] [address] Dec, [facility] [place] [facility] [address] [id number] [place] [address] Oct, [facility] [place] [facility] [address] [id number] [place] [address] Oct, [facility] [place] [facility] [address] [id number] [place] [address] Sep, [facility] [place] [facility] [address] [id number] [place] [address] Aug, [facility] [place] [facility] [address] [id number] [place] [address] Aug, [facility] [place] [facility] [address] [id number] [place] [address] Aug, [facility] [place] [facility] [address] [id number] [place] [address] Aug, [facility] [place] [facility] [address] [id number] [place] [address] Aug, [facility] [place] [facility] [address] [id number] [place] [address] Aug, [facility] [place] [facility] [address] [id number] [place] [address] Aug, [facility] [place] [facility] [address] [id number] [place] [address] Jul, [facility] [place] [facility] [id number] [place] [address] Jul, [facility] [place] [facility] [address] [id number] [place] [address] Jul, [facility] [place] [facility] [id number] [place] [address] Jun, [facility] [place] [facility] [address] [id number] [place] [address] 23 Apr, 2012 [facility] [place] [facility] [address] [id number] [place] [address] 17 Apr, 2012 [facility] [place] [facility] [address] [id number] [place] [address] 10 Apr, 2012 [facility] [place] [facility] [address] [id number] [place] [address] Mar, [facility] [place] [facility] [address] [id number] [place] [address] Mar, [facility] [place] [facility] [address] [id number] [place] [address] Jan, [facility] [place] [facility] [address] [id number] [place] [address] Dec, [facility] [place] [facility] [address] [id number] [place] [address] May, [facility] [place] [facility] [address] [id number] [place] [address] Sep, [facility] [place] [facility] [address] [id number] [place] [address] Sep, [facility] [place] [facility] [address] [id number] [place] [address] Aug, [facility] [place] [facility] [address] [id number] [place] [address] Jul, [facility] [address] [id number] [place] [address] Jul, [facility] [address] [id number] [place] [address] 15 Apr, 2010 [facility] [address] [id number] [place] [address] 12 Jan, 2010 [facility] [address] [id number] [place] [address] Aug, [facility] [address] [id number] [place] [address] Aug, [facility] [address] [id number] [place] [address] Aug, [facility] [address] [id number] [place] [address] Aug, [facility] [address] [id number] [place] [address] Jul, [facility] [address] [id number] [place] [address] May, [facility] [address] [id number] [place] [address] Apr, [facility] [address] [id number] [place] [address] February, [facility] [address] [id number] [place] [address] Dec, IMMUNIZATIONS No Known Immunizations SOCIAL HISTORY [...] 2013 Hospitalization History Suicidal ideation/intentional overdo [facility] 03/16/18 Hospitalization History Behavorial hospitalization [facility] 03/2018
--- OUTSIDE RECORDS SUMMARY | 2020-02-24 12:24 | XMS REPORT ---
Author Author Reena SHAFFER Organization [facility] Address [address] [place] [address] Care Team Providers Care Direct Casting Operator Name Role Phone DEONDRE SHAFFER Unavailable PROBLEMS Type Condition ICD9-CM Code [id number] Code Onset Dates Condition S tatus SNOMED Code Problem Hypertension I10 Active 3572107 3 Problem Bipolar II disorder F31.81 Active 36616032 Problem Arthritis M19.90 Active 8594808 Problem Migraine G43.909 Active 87496786 Problem Lumbago with sciatica, unspecified side M54.40 Active 435678393 Problem Other chronic pain G89.29 Active 8 0574749 Problem Anxiety F41.9 Active 86047383 Problem IV drug abuse F19.10 Active 953102 006 Problem Essential hypertension I10 Active 11126013 Problem Opioid use disorder, severe, in early remission, dependenc e F11.21 Active 597234736 Problem Benzodiazepine dependence F13.20 Acti ve 291842746 Problem Moderate episode of recurrent major depressive disorder F33.1 Active 079089019 Problem Affective disorder F39 Active 4 2800714 Problem Gastroesophageal reflux disease without esophagitis K21.9 Active 112576908 Problem Psoriasis L40.9 Active 6616862 ALLERGIES No Information ENCOUNTERS Encounter Location Date Diagnosis [facility] [id number] [place] [address] 14 Oct, 2019 Opioid use disorder, severe, in early re mission, dependence F11.21 [facility] [address] [address] 08 Oct, 2019 Opioid use disorder, severe, in early re mission, dependence F11.21 ; Psoriasis L40.9 ; Lipoma of right upper extremity D17.21 and Abscess L02.91 [place] [id number] [place] [address] Sep, Opioid use disorder, severe, in early re mission, dependence F11.21 and Benzodiazepine dependence F13.20 [facility] [address] [address] Sep, Opioid use disorder, severe, in early re mission, dependence F11.21 and Bipolar II disorder F31.81 [facility] [address] [address] Sep, Opioid use disorder, severe, in early re mission, dependence F11.21 [facility] [address] [address] Sep, Opioid use disorder, severe, in early re mission, dependence F11.21 and Bipolar II disorder F31.81 [place] [address] [address] Sep, Opioid use disorder, severe, in early re mission, dependence F11.21 [place] [address] [address] Aug, Opioid use disorder, severe, in early re mission, dependence F11.21 and Bipolar II disorder F31.81 [place] [address] [address] Aug, Opioid use disorder, severe, in early re mission, dependence F11.21 [place] [address] [address] 14 Aug, 2019 Opioid use disorder, severe, in early re mission, dependence F11.21 [place] [address] [address] 07 Aug, 2019 Opioid use disorder, severe, in early re mission, dependence F11.21 [place] [address] [address] Jul, Opioid use disorder, severe, in early re mission, dependence F11.21 [place] [address] [address] Jul, Opioid use disorder, severe, in early re mission, dependence F11.21 [facility] [id number] [place] [address] Jul, Opioid use disorder, severe, in early re mission, dependence F11.21 [facility] [id number] [place] [address] Jul, Opioid use disorder, severe, in early re mission, dependence F11.21 [facility] [id number] [place] [address] Jul, Opioid use disorder, severe, in early re mission, dependence F11.21 [facility] [id number] [place] [address] Jul, Opioid use disorder, severe, in early re mission, dependence F11.21 [facility] [id number] [place] [address] Jul, Opioid use disorder, severe, in early re mission, dependence F11.21 [facility] [id number] [place] [address] Jul, Opioid use disorder, severe, in early re mission, dependence F11.21 [facility] [id number] [place] [address] Jul, [facility] [id number] [place] [address] Jul, [facility] [id number] [place] [address] Jun, Opioid use disorder, severe, in early re mission, dependence F11.21 [facility] [id number] [place] [address] 18 Jun, 2019 Opioid use disorder, severe, in early re mission, dependence F11.21 [facility] [address] [id number] [place] [address] 17 Jun, 2019 [facility] [id number] [place] [address] 16 Jun, 2019 [facility] [id number] [place] [address] Jun, Bipolar II disorder F31.81 ; IV drug abu se F19.10 and Opioid use disorder, severe, in early remission, dependence F11.21 [facility] [id number] [place] [address] Jun, [facility] [address] [address] May, [facility] [address] [address] May, Bipolar II disorder F31.81 [facility] [address] [address] May, Bipolar II disorder F31.81 and Hypertens ion I10 [facility] [address] [address] Apr, [facility] [address], [place] [address] 57 February, IV drug abuse F19.10 ; Screen for STD (sexually transmitted disease) Z11.3 and Unprotected sex Z72.51 [facility] [address] [address] Dec, [facility] [address] [address] Jul, Moderate episode of recurrent major depr essive disorder F33.1 [facility] [address] [address] May, [facility] [address] [address] Apr, Moderate episode of recurrent major depr essive disorder F33.1 [facility] [address] [address] Apr, Moderate episode of recurrent major depr essive disorder F33.1 [facility] [address] [address] Apr, [facility] [id number] [place] [address] Apr, Moderate episode of recurrent major depr essive disorder F33.1 [facility] [id number] [place] [address] Mar, [facility] [id number] [place] [address] 15 Mar, 2018 Moderate episode of recurrent major depr essive disorder F33.1 and Hypertension I10 [facility] [id number] [place] [address] 14 Mar, 2018 Bipolar II disorder F31.81 [facility] [id number] [place] [address] February, [facility] [id number] [place] [address] February, [facility] [id number] [place] [address] February, [facility] [id number] [place] [address] Dec, [facility] [id number] [place] [address] Nov, Psoriasis L40.9 [facility] [id number] [place] [address] Nov, [facility] [id number] [place] [address] Nov, Anxiety F41.9 [facility] [id number] [place] [address] Oct, [facility] [id number] [place] [address] Oct, [facility] [id number] [place] [address] Oct, [facility] [id number] [place] [address] Oct, [facility] [id number] [place] [address] Sep, [facility] [address] [facility] [id number] [place] [address] Sep, [facility] [address] [id number] [place] [id number] Aug, Dental examination Z01.20 and Dental car ies K02.9 [facility] [id number] [place] [address] Aug, [facility] [id number] [place] [address] Jul, [facility] [id number] [place] [address] Jul, [facility] [id number] [place] [address] Jul, Moderate episode of recurrent major depr essive disorder F33.1 [facility] [id number] [place] [address] Jun, Moderate episode of recurrent major depr essive disorder F33.1 and Anxiety F41.9 [facility] [id number] [place] [address] Jun, [facility] [id number] [place] [address] Jun, Anxiety F41.9 [facility] [id number] [place] [address] Jun, Moderate episode of recurrent major depr essive disorder F33.1 [facility] [id number] [place] [address] Jun, [facility] [address] [address] May, Moderate episode of recurrent major depr essive disorder F33.1 [facility] [address] [facility] [id number] [address] [place] [address] May, [facility] [address] [address] May, Encounter for well woman exam with nessa najera gynecological exam Z01.419 and Anxiety F41.9 [place] [address] [address] Apr, [place] [address] [address] Mar, Affective disorder F39 ; Benzodiazepine dependence F13.20 and High risk sexual behavior Z72.51 [place] [address] [address] 17 Jan, 2017 Dyspepsia R10.13 ; Gastroesophageal refl ux disease without esophagitis K21.9 and Affective disorder F39 [place] [address] [address] 03 Jan, 2017 Affective disorder F39 [place] [address] [address] Dec, Moderate episode of recurrent major depr essive disorder F33.1 [place] [address] [address] 14 Nov, 2016 Unspecified episodic mood disorder F39 a nd Essential hypertension I10 [place] [address] [address] 02 Nov, 2016 Affective disorder F39 ; Anxiety F41.9 a nd Unspecified episodic mood disorder F39 [place] [address] [address] Oct, [place] [address] [address] Oct, [facility] [address], [place] [address] 57 Sep, Dysuria R30.0 [place] [address] [address] Sep, [place] [address] [address] Aug, [place] [address] [address] Aug, [facility] [address] [address] Jul, [facility] [address] [facility] [id number] [address] [place] [address] Jul, Acute non-recurrent maxillar y sinusitis J01.00 and Dysuria R30.0 [facility] [address] [address] Jul, Affective disorder F39 ; Essential hyper tension I10 ; Lumbago with sciatica, unspecified side M54.40 ; Other chronic pain G89.29 and Acute vaginitis N76.0 [facility] [address] [address] Jun, [facility] [address] [address] Jun, [facility] [address] [address] Jun, [facility] [address] [facility] [id number] [address] [place] [address] May, Anxiety F41.9 [facility] [address] [address] May, [facility] [address] [address] May, [facility] [address] [address] Apr, [facility] [address] [address] Apr, Affective disorder F39 [facility] [address] [address] Apr, [facility] [address] [address] Apr, Unspecified episodic mood disorder F39 [place] [address] [address] Jan, Hypertension I10 [facility] [address] [address] Jan, Benzodiazepine dependence F13.20 and Art hritis M19.90 [facility] [address] [address] Nov, [facility] [address] [address] Jul, Migraine G43.909 ; Hypertension I10 and Arthritis M19.90 [facility] [address] [address] Jun, [facility] [address] [address] Jun, [facility] [address] [address] Jun, [facility] [address] [address] May, [facility] [address] [address] Jan, [facility] [address] [address] Jan, [facility] [address] [address] Nov, [facility] [address] [address] Nov, [facility] [address] [address] Oct, [facility] [address] [address] Oct, [facility] [address] [address] Oct, [facility] [address] [address] Oct, [facility] [place] [facility] [address] [facility] [id number] [place] [address] Aug, [facility] [place] [facility] [address] [facility] [id number] [place] [address] Aug, [facility] [place] [facility] [address] [facility] [id number] [place] [address] Aug, [facility] [place] [facility] [address] [facility] [id number] [place] [address] Aug, [facility] [place] [facility] [address] [facility] [id number] [place] [address] Aug, [facility] [place] [facility] [address] [facility] [id number] [place] [address] Aug, [facility] [place] [facility] [address] [facility] [id number] [place] [address] Aug, [facility] [place] [facility] [address] [facility] [id number] [place] [address] May, [facility] [place] [facility] [address] [facility] [id number] [place] [address] May, [facility] [place] [facility] [address] [facility] [id number] [place] [address] May, [facility] [place] [facility] [address] [facility] [id number] [place] [address] May, [facility] [place] [facility] [address] [facility] [id number] [place] [address] May, [facility] [place] [facility] [address] [facility] [id number] [place] [address] Apr, [facility] [place] [facility] [address] [facility] [id number] [place] [address] Apr, [facility] [place] [facility] [address] [facility] [id number] [place] [address] Apr, [facility] [place] [facility] [address] [facility] [id number] [place] [address] Apr, [facility] [place] [facility] [address] [id number] [place] [address] Apr, [facility] [place] [facility] [address] [id number] [place] [address] Apr, [facility] [place] [facility] [address] [facility] [id number] [place] [address] Apr, [facility] [place] [facility] [address] [facility] [id number] [place] [address] Apr, [facility] [place] [facility] [address] [facility] [id number] [place] [address] Mar, [facility] [place] [facility] [address] [facility] [id number] [place] [address] Mar, [facility] [place] [facility] [address] [facility] [id number] [place] [address] Mar, [facility] [place] [facility] [address] [facility] [id number] [place] [address] Mar, [facility] [place] [facility] [address] [facility] [id number] [place] [address] Mar, [facility] [place] [facility] [address] [facility] [id number] [place] [address] Mar, [facility] [place] [facility] [address] [facility] [id number] [place] [address] Mar, [facility] [place] [facility] [address] [facility] [id number] [place] [address] February, [facility] [place] [facility] [address] [facility] [id number] [place] [address] February, [facility] [place] [facility] [address] [facility] [id number] [place] [address] Jan, [facility] [place] [facility] [address] [id number] [place] [address] Jan, [facility] [place] [facility] [address] [facility] [id number] [place] [address] Jan, [facility] [place] [facility] [address] [facility] [id number] [place] [address] Jan, [facility] [place] [facility] [address] [facility] [id number] [place] [address] Jan, [facility] [place] [facility] [address] [facility] [id number] [place] [address] Jan, [facility] [place] [facility] [address] [facility] [id number] [place] [address] Dec, [facility] [place] [facility] [address] [facility] [id number] [place] [address] Dec, [facility] [place] [facility] [address] [facility] [id number] [place] [address] Dec, [facility] [place] [facility] [address] [facility] [id number] [place] [address] Nov, [facility] [place] [facility] [address] [facility] [id number] [place] [address] Nov, [facility] [place] [facility] [address] [facility] [id number] [place] [address] Nov, [facility] [place] [facility] [address] [facility] [id number] [place] [address] Nov, [facility] [place] [facility] [address] [facility] [id number] [place] [address] Oct, [facility] [place] [facility] [address] [facility] [id number] [place] [address] Oct, [facility] [place] [facility] [address] [id number] [place] [address] Oct, [facility] [place] [facility] [address] [id number] [place] [address] Oct, [facility] [place] [facility] [address] [id number] [place] [address] Oct, [facility] [place] [facility] [address] [id number] [place] [address] Oct, [facility] [place] [facility] [address] [id number] [place] [address] Sep, [facility] [place] [facility] [address] [id number] [place] [address] Sep, [facility] [place] [facility] [address] [id number] [place] [address] Aug, [facility] [place] [facility] [address] [id number] [place] [address] Aug, [facility] [place] [facility] [address] [id number] [place] [address] Aug, [facility] [place] [facility] [address] [id number] [place] [address] Aug, [facility] [place] [facility] [address] [id number] [place] [address] Jul, [facility] [place] [facility] [address] [id number] [place] [address] Jul, [facility] [place] [facility] [address] [id number] [place] [address] Jul, [facility] [place] [facility] [address] [id number] [place] [address] Jul, [facility] [place] [facility] [address] [id number] [place] [address] Jul, [facility] [place] [facility] [address] [id number] [place] [address] Apr, [facility] [place] [facility] [address] [id number] [place] [address] Apr, [facility] [place] [facility] [address] [id number] [place] [address] Mar, [facility] [place] [facility] [address] [id number] [place] [address] Mar, [facility] [place] [facility] [address] [id number] [place] [address] February, [facility] [place] [facility] [address] [id number] [place] [address] Dec, [facility] [place] [facility] [address] [id number] [place] [address] Dec, [facility] [place] [facility] [address] [id number] [place] [address] Dec, [facility] [place] [facility] [address] [id number] [place] [address] Oct, [facility] [id number] [place] [address] Oct, [facility] [id number] [place] [address] Sep, [facility] [id number] [place] [address] Aug, [facility] [id number] [place] [address] Aug, [facility] [id number] [place] [address] Aug, [facility] [id number] [place] [address] Aug, [facility] [id number] [place] [address] Aug, [facility] [id number] [place] [address] Aug, [facility] [id number] [place] [address] Aug, [facility] [id number] [place] [address] Jul, [facility] [id number] [place] [address] Jul, [facility] [id number] [place] [address] Jul, [facility] [id number] [place] [address] Jun, [facility] [id number] [place] [address] Apr, [facility] [id number] [place] [address] 17 Apr, 2012 [facility] [address] [facility] [id number] [place] [address] 10 Apr, 2012 [facility] [id number] [place] [address] Mar, [facility] [id number] [place] [address] 07 Mar, 2012 [facility] [id number] [place] [address] 20 Jan, 2012 [facility] [address] [facility] [id number] [place] [address] Dec, [facility] [id number] [place] [address] May, [facility] [id number] [place] [address] Sep, [facility] [id number] [place] [address] 16 Sep, 2010 [facility] [id number] [place] [address] 18 Aug, 2010 [facility] [id number] [place] [address] Jul, [facility] [id number] [place] [address] Jul, [facility] [id number] [place] [address] 15 Apr, 2010 [facility] [id number] [place] [address] Jan, [facility] [id number] [place] [address] Aug, [facility] [id number] [place] [address] Aug, [facility] [id number] [place] [address] Aug, [facility] [id number] [place] [address] Aug, [facility] [id number] [place] [address] Jul, [facility] [id number] [place] [address] May, [facility] [id number] [place] [address] Apr, [facility] [id number] [place] [address] February, [facility] [address] [id number] [place] [id number] Dec, IMMUNIZATIONS No Known Immunizations SOCIAL HISTORY [...] stones 2013 Hospitalization History Suicidal ideation/intentional overdo [facility] 03/16/18 Hospitalization History Behavorial hospitalization [facility] 03/2018
--- OUTSIDE RECORDS SUMMARY | 2020-02-24 12:24 | XMS REPORT ---
Author Author Reena SHARMA Organization [facility] Address [address] [place] [address] Care Team Providers Care Windows Systems Admin Name Role Phone HERMELINDA SHARMA Unavailable PROBLEMS Type Condition ICD9-CM Code OYI66-WC Code Onset Dates Condition S tatus SNOMED Code Problem Hypertension I10 Active 1319256 3 Problem Bipolar II disorder F31.81 Active 42856051 Problem Arthritis M19.90 Active 3700855 Problem Migraine G43.909 Active 83150452 Problem Lumbago with sciatica, unspecified side M54.40 Active 239681134 Problem Other chronic pain G89.29 Active 8 1779819 Problem Anxiety F41.9 Active 89838564 Problem IV drug abuse F19.10 Active 354705 006 Problem Essential hypertension I10 Active 56482852 Problem Opioid use disorder, severe, in early remission, dependenc e F11.21 Active 395346550 Problem Benzodiazepine dependence F13.20 Acti ve 147605730 Problem Moderate episode of recurrent major depressive disorder F33.1 Active 282451502 Problem Affective disorder F39 Active 4 4244577 Problem Gastroesophageal reflux disease without esophagitis K21.9 Active 546546787 Problem Psoriasis L40.9 Active 0446474 ALLERGIES No Information ENCOUNTERS Encounter Location Date Diagnosis [facility] [address] [address] Oct, Opioid use disorder, severe, in early re mission, dependence F11.21 ; Psoriasis L40.9 ; Lipoma of right upper extremity D17.21 and Abscess L02.91 [facility] [address] [address] Sep, Opioid use disorder, severe, in early re mission, dependence F11.21 and Benzodiazepine dependence F13.20 [facility] [address] [address] Sep, Opioid use disorder, severe, in early re mission, dependence F11.21 and Bipolar II disorder F31.81 [facility] [address] [place] [address] Sep, Opioid use disorder, severe, in early re mission, dependence F11.21 [facility] [address] [address] Sep, Opioid use disorder, severe, in early re mission, dependence F11.21 and Bipolar II disorder F31.81 [facility] [address] [address] Sep, Opioid use disorder, severe, in early re mission, dependence F11.21 [facility] [address] [address] Aug, Opioid use disorder, severe, in early re mission, dependence F11.21 and Bipolar II disorder F31.81 [place] [address] [address] Aug, Opioid use disorder, severe, in early re mission, dependence F11.21 [place] [address] [address] 14 Aug, 2019 Opioid use disorder, severe, in early re mission, dependence F11.21 [facility] [address] [address] Aug, Opioid use disorder, severe, in early re mission, dependence F11.21 [facility] [address] [address] Jul, Opioid use disorder, severe, in early re mission, dependence F11.21 [facility] [address] [address] Jul, Opioid use disorder, severe, in early re mission, dependence F11.21 [facility] [address] [address] Jul, Opioid use disorder, severe, in early re mission, dependence F11.21 [facility] [id number] [place] [address] Jul, Opioid use disorder, severe, in early re mission, dependence F11.21 [facility] [address] [address] Jul, Opioid use disorder, severe, in early re mission, dependence F11.21 [facility] [address] [address] Jul, Opioid use disorder, severe, in early re mission, dependence F11.21 [facility] [address] [address] Jul, Opioid use disorder, severe, in early re mission, dependence F11.21 [facility] [address] [address] Jul, Opioid use disorder, severe, in early re mission, dependence F11.21 [facility] [address] [address] Jul, [facility] [address] [address] Jul, [facility] [address] [address] Jun, Opioid use disorder, severe, in early re mission, dependence F11.21 [facility] [address] [address] Jun, Opioid use disorder, severe, in early re mission, dependence F11.21 [facility] [address] [address] Jun, [facility] [address] [address] Jun, [facility] [address] [address] Jun, Bipolar II disorder F31.81 ; IV drug abu se F19.10 and Opioid use disorder, severe, in early remission, dependence F11.21 [facility] [address] [address] Jun, [facility] [address] [address] May, [facility] [address] [address] May, Bipolar II disorder F31.81 [facility] [address] [address] May, Bipolar II disorder F31.81 and Hypertens ion I10 [place] [address] [address] Apr, [facility] [address] [place], [place] [address] 57 February, IV drug abuse F19.10 ; Screen for STD (sexually transmitted disease) Z11.3 and Unprotected sex Z72.51 [place] [address] [address] Dec, [facility] [address] [address] Jul, Moderate episode of recurrent major depr essive disorder F33.1 [place] [address] [address] May, [facility] [address] [address] Apr, Moderate episode of recurrent major depr essive disorder F33.1 [facility] [address] [address] Apr, Moderate episode of recurrent major depr essive disorder F33.1 [facility] [address] [address] Apr, [facility] [address] [address] Apr, Moderate episode of recurrent major depr essive disorder F33.1 [facility] [address] [address] Mar, [facility] [address] [address] 15 Mar, 2018 Moderate episode of recurrent major depr essive disorder F33.1 and Hypertension I10 [facility] [address] [address] 14 Mar, 2018 Bipolar II disorder F31.81 [facility] [address] [address] February, [facility] [address] [address] February, [facility] [address] [address] February, [facility] [address] [address] Dec, [facility] [address] [address] Nov, Psoriasis L40.9 [facility] [address] [address] Nov, [facility] [address] [address] Nov, Anxiety F41.9 [facility] [address] [address] Oct, [facility] [address] [address] Oct, [facility] [address] [address] Oct, [facility] [address] [address] Oct, [facility] [address] [address] Sep, [facility] [address] [address] Sep, [facility] [address] [facility] [place] [id number] Aug, Dental examination Z01.20 and Dental car ies K02.9 [facility] [id number] [place] [address] Aug, [facility] [id number] [place] [address] Jul, [facility] [address] [id number] [place] [address] Jul, [facility] [address] [address] Jul, Moderate episode of recurrent major depr essive disorder F33.1 [facility] [id number] [place] [address] Jun, Moderate episode of recurrent major depr essive disorder F33.1 and Anxiety F41.9 [facility] [id number] [place] [address] Jun, [facility] [address] [address] Jun, Anxiety F41.9 [facility] [id number] [place] [address] Jun, Moderate episode of recurrent major depr essive disorder F33.1 [facility] [id number] [place] [address] Jun, [facility] [address] [address] May, Moderate episode of recurrent major depr essive disorder F33.1 [facility] [address] [facility] [id number] [address] [place] [address] May, [facility] [address] [id number] [place] [address] May, Encounter for well woman exam with nessa najera gynecological exam Z01.419 and Anxiety F41.9 [facility] [address] [address] Apr, [facility] [address] [address] Mar, Affective disorder F39 ; Benzodiazepine dependence F13.20 and High risk sexual behavior Z72.51 [facility] [address] [address] Jan, Dyspepsia R10.13 ; Gastroesophageal refl ux disease without esophagitis K21.9 and Affective disorder F39 [facility] [address] [address] Jan, Affective disorder F39 [place] [address] [address] Dec, Moderate episode of recurrent major depr essive disorder F33.1 [place] [address] [address] 14 Nov, 2016 Unspecified episodic mood disorder F39 a nd Essential hypertension I10 [place] [address] [address] 02 Nov, 2016 Affective disorder F39 ; Anxiety F41.9 a nd Unspecified episodic mood disorder F39 [facility] [address] [address] Oct, [facility] [address] [address] Oct, [facility] [address] [place], [place] [address] 57 Sep, Dysuria R30.0 [facility] [address] [address] Sep, [facility] [address] [address] Aug, [facility] [address] [address] Aug, [facility] [address] [address] Jul, [facility] [address] [facility] [id number] [address] [address] Jul, Acute non-recurrent maxillar y sinusitis J01.00 and Dysuria R30.0 [facility] [address] [id number] [place] [address] Jul, Affective disorder F39 ; Essential hyper tension I10 ; Lumbago with sciatica, unspecified side M54.40 ; Other chronic pain G89.29 and Acute vaginitis N76.0 [facility] [address] [address] Jun, [facility] [address] [address] Jun, [facility] [address] [address] Jun, [facility] [address] [facility] [id number] [address] [address] May, Anxiety F41.9 [facility] [address] [address] May, [facility] [address] [address] May, [facility] [address] [address] Apr, [facility] [address] [address] Apr, Affective disorder F39 [facility] [address] [address] Apr, [facility] [address] [address] Apr, Unspecified episodic mood disorder F39 [facility] [address] [address] Jan, Hypertension I10 [facility] [address] [address] 05 Jan, 2016 Benzodiazepine dependence F13.20 and Art hritis M19.90 [facility] [address] [address] Nov, [facility] [address] [address] Jul, Migraine G43.909 ; Hypertension I10 and Arthritis M19.90 [facility] [address] [address] Jun, [facility] [address] [address] Jun, [facility] [address] [address] Jun, [facility] [address] [address] May, [facility] [address] [address] Jan, [facility] [address] [address] Jan, [facility] [address] [address] Nov, [facility] [address] [address] Nov, [facility] [address] [address] Oct, [facility] [address] [address] Oct, [facility] [address] [address] Oct, [facility] [address] [address] Oct, [facility] [address] [address] Aug, [facility] [address] [id number] [facility] [address] Aug, [facility] [address] [facility] [id number] [place] [address] Aug, [facility] [address] [facility] [id number] [place] [address] Aug, [facility] [address] [id number] [place] [address] Aug, [facility] [address] [facility] [id number] [place] [address] Aug, [facility] [address] [facility] [id number] [place] [address] Aug, [facility] [address] [id number] [place] [address] May, [facility] [address] [id number] [place] [address] May, [facility] [address] [id number] [place] [address] May, [facility] [address] [id number] [place] [address] May, [facility] [address] [id number] [place] [address] May, [facility] [address] [id number] [place] [address] Apr, [facility] [address] [id number] [place] [address] Apr, [facility] [address] [facility] [id number] [place] [address] Apr, [facility] [address] [id number] [place] [address] Apr, [facility] [address] [id number] [place] [address] Apr, [facility] [address] [id number] [place] [address] Apr, [facility] [address] [id number] [place] [address] Apr, [facility] [address] [facility] [id number] [facility] [address] Apr, [facility] [address] [facility] [id number] [place] [address] Mar, [facility] [address] [id number] [facility] [place] [address] Mar, [facility] [address] [facility] [id number] [place] [address] Mar, [facility] [address] [id number] [place] [address] Mar, [facility] [address] [id number] [place] [address] Mar, [facility] [address] [id number] [place] [address] Mar, [facility] [address] [id number] [place] [address] Mar, [facility] [address] [id number] [place] [address] February, [facility] [address] [id number] [place] [address] February, [facility] [address] [id number] [place] [address] Jan, [facility] [address] [id number] [place] [address] Jan, [facility] [address] [id number] [place] [address] Jan, [facility] [address] [id number] [place] [address] Jan, [facility] [address] [id number] [place] [address] Jan, [facility] [address] [id number] [place] [address] Jan, [facility] [address] [facility] [id number] [place] [address] Dec, [facility] [address] [id number] [place] [address] Dec, [facility] [address] [id number] [place] [address] Dec, [facility] [address] [id number] [place] [address] Nov, [facility] [address] [id number] [place] [address] Nov, [facility] [address] [id number] [place] [address] Nov, [facility] [address] [id number] [place] [address] Nov, [facility] [address] [id number] [place] [address] Oct, [facility] [address] [id number] [place] [address] Oct, [facility] [address] [id number] [place] [address] Oct, [facility] [address] [id number] [place] [address] Oct, [facility] [address] [id number] [place] [address] Oct, [facility] [address] [id number] [place] [address] Oct, [facility] [address] [id number] [place] [address] Sep, [facility] [address] [id number] [place] [address] Sep, [facility] [address] [id number] [place] [address] Aug, [facility] [address] [id number] [place] [address] Aug, [facility] [address] [id number] [place] [address] Aug, [facility] [address] [id number] [place] [address] Aug, [facility] [address] [id number] [place] [address] Jul, [facility] [address] [id number] [place] [address] Jul, [facility] [address] [id number] [place] [address] Jul, [facility] [address] [id number] [place] [address] Jul, [facility] [address] [id number] [place] [address] Jul, [facility] [address] [id number] [place] [address] Apr, [facility] [address] [id number] [place] [address] Apr, [facility] [address] [id number] [place] [address] Mar, [facility] [address] [id number] [place] [address] Mar, [facility] [address] [id number] [place] [address] February, [facility] [address] [id number] [place] [address] Dec, [facility] [address] [id number] [place] [address] Dec, [facility] [address] [id number] [place] [address] Dec, [facility] [address] [id number] [place] [address] Oct, [facility] [address] [id number] [place] [address] Oct, [facility] [address] [id number] [place] [address] Sep, [facility] [address] [id number] [place] [address] Aug, [facility] [address] [id number] [place] [address] Aug, [facility] [address] [id number] [place] [address] Aug, [facility] [address] [id number] [place] [address] Aug, [facility] [address] [id number] [place] [address] Aug, [facility] [address] [id number] [place] [address] Aug, [facility] [address] [id number] [place] [address] Aug, [facility] [address] [id number] [place] [address] Jul, [facility] [address] [id number] [place] [address] Jul, [facility] [address] [id number] [place] [address] Jul, [facility] [address] [id number] [place] [address] Jun, [facility] [address] [id number] [place] [address] Apr, [facility] [address] [id number] [place] [address] Apr, [facility] [address] [id number] [place] [address] Apr, [facility] [address] [id number] [place] [address] 11 Mar, 2012 [facility] [address] [id number] [place] [address] 07 Mar, 2012 [facility] [address] [id number] [place] [address] 20 Jan, 2012 [facility] [address] [id number] [place] [address] Dec, [facility] [address] [id number] [place] [address] 15 May, 2011 [facility] [address] [id number] [place] [address] Sep, [facility] [address] [id number] [place] [address] 16 Sep, 2010 [facility] [address] [id number] [place] [address] Aug, [facility] [address] [id number] [place] [address] Jul, [facility] [address] [id number] [place] [address] Jul, [facility] [address] [id number] [place] [address] 15 Apr, 2010 [facility] [address] [id number] [place] [address] Jan, [facility] [address] [id number] [place] [address] Aug, [facility] [address] [id number] [place] [address] 11 Aug, 2009 [facility] [address] [id number] [place] [address] 07 Aug, 2009 [facility] [address] [id number] [place] [address] 06 Aug, 2009 [facility] [address] [id number] [place] [address] Jul, [facility] [address] [id number] [place] [address] May, [facility] [address] [id number] [place] [address] Apr, [facility] [address] [id number] [place] [address] February, [facility] [address] [id number] [place] [address] Dec, IMMUNIZATIONS No Known Immunizations SOCIAL HISTORY [...] stones 2013 Hospitalization History Suicidal ideation/intentional overdo [facility] 03/16/18 Hospitalization History Behavorial hospitalization [facility] 03/2018
[2020-02-24 12:25] LABS: GLUCOSE 114 MG/DL (70-105); TOTAL PROTEIN 8.4 GM/DL (6.4-8.2)
--- OUTSIDE RECORDS SUMMARY | 2020-02-24 12:25 | XMS REPORT ---
Author Author Reena Bryant Organization [facility] Address [address] [place] [address] Care Team Providers Care Networking Engineer Name Role Phone SANDRINE Bryant Unavailable PROBLEMS Type Condition ICD9-CM Code [id number] Code Onset Dates Condition S tatus SNOMED Code Problem Hypertension I10 Active 9510052 3 Problem Bipolar II disorder F31.81 Active 11681353 Problem Arthritis M19.90 Active 6815752 Problem Migraine G43.909 Active 33564327 Problem Lumbago with sciatica, unspecified side M54.40 Active 316820047 Problem Other chronic pain G89.29 Active 8 0931923 Problem Anxiety F41.9 Active 57003401 Problem IV drug abuse F19.10 Active 464186 006 Problem Essential hypertension I10 Active 16062604 Problem Opioid use disorder, severe, in early remission, dependenc e F11.21 Active 910635151 Problem Benzodiazepine dependence F13.20 Acti ve 888324089 Problem Moderate episode of recurrent major depressive disorder F33.1 Active 347831230 Problem Affective disorder F39 Active 4 3562833 Problem Gastroesophageal reflux disease without esophagitis K21.9 Active 423247525 Problem Psoriasis L40.9 Active 7696124 ALLERGIES No Information ENCOUNTERS Encounter Location Date Diagnosis [facility] [address] [facility] [id number] [address] [place] [address] Jul, [facility] [address] [facility] [id number] [address] [place] [id number] 26 Jun, 2019 Opioid use disorder, severe, in early remission, dependence F11.21 [facility] [address] [facility] [id number] [address] [place] [id number] 18 Jun, 2019 Opioid use disorder, severe, in early remission, dependence F11.21 [facility] [address] [facility] [id number] [address] [place] [id number] 17 Jun, 2019 [facility] [address] [facility] [id number] [address] [place] [address] Jun, [facility] [address] [place] [id number] [address] [place] [address] Jun, Bipolar II disorder F31.81 ; IV drug abuse F19.10 and Opioid use disorder, severe, in early remission, dependence F11.21 [facility] [address] [facility] [id number] [address] [place] [phone] Jun, [facility] [address] [facility] [id number] [address] [place] [address] May, [facility] [address] [place] [id number] [address] [place] [address] May, Bipolar II disorder F31.81 [facility] [address] [place] [id number] [address] [place] [address] May, Bipolar II disorder F31.81 a nd Hypertension I10 [facility] [address] [facility] [id number] [address] [place] [address] Apr, [facility] [address] [place], [place] [id number] 57 February, IV drug abuse F19.10 ; Screen for STD (sexually transmitted disease) Z11.3 and Unprotected sex Z72.51 [place] [address] [place] [id number] [address] [place] [address] Dec, [facility] [address] [facility] [id number] [address] [place] [address] Jul, Moderate episode of recurren t major depressive disorder F33.1 [facility] [address] [facility] [id number] [address] [place] [address] May, [facility] [address] [place] [id number] [address] [place] [phone] Apr, Moderate episode of recurren t major depressive disorder F33.1 [facility] [address] [place] [id number] [address] [place] [address] Apr, Moderate episode of recurren t major depressive disorder F33.1 [facility] [address] [id number] [address] [place] [address] Apr, [facility] [address] [id number] [address] [place] [id number] 16 Apr, 2018 Moderate episode of recurren t major depressive disorder F33.1 [facility] [address] [id number] [address] [place] [phone] Mar, [facility] [address] [id number] [address] [place] [phone] 15 Mar, 2018 Moderate episode of recurren t major depressive disorder F33.1 and Hypertension I10 [facility] [address] [id number] [address] [place] [address] 14 Mar, 2018 Bipolar II disorder F31.81 [facility] [address] [id number] [address] [place] [address] February, [facility] [address] [id number] [address] [place] [id number] February, [facility] [address] [id number] [address] [place] [address] February, [facility] [address] [id number] [address] [place] [address] Dec, [facility] [address] [id number] [address] [place] [address] Nov, Psoriasis L40.9 [facility] [address] [id number] [address] [place] [address] Nov, [facility] [address] [facility] [id number] [address] [place] [address] Nov, Anxiety F41.9 [facility] [address] [facility] [id number] [address] [place] [address] Oct, [facility] [address] [id number] [address] [place] [address] Oct, [facility] [address] [id number] [address] [place] [address] Oct, [facility] [address] [id number] [address] [place] [address] Oct, [facility] [address] [id number] [address] [place] [address] Sep, [facility] [address] [id number] [address] [place] [address] Sep, [facility] [address] [id number] [address] [place] [id number] Aug, Dental examination Z01.20 an d Dental caries K02.9 [facility] [address] [id number] [address] [place] [address] Aug, [facility] [address] [id number] [address] [place] [phone] Jul, [facility] [address] [id number] [address] [place] [address] Jul, [facility] [address] [id number] [address] [place] [phone] Jul, Moderate episode of recurren t major depressive disorder F33.1 [facility] [address] [id number] [address] [place] [id number] 18 Jun, 2017 Moderate episode of recurren t major depressive disorder F33.1 and Anxiety F41.9 [facility] [address] [id number] [address] [place] [phone] 14 Jun, 2017 [facility] [address] [id number] [address] [place] [phone] 11 Jun, 2017 Anxiety F41.9 [facility] [address] [id number] [address] [place] [phone] Jun, Moderate episode of recurren t major depressive disorder F33.1 [facility] [address] [facility] [id number] [address] [place] [phone] Jun, [facility] [address] [facility] [id number] [address] [place] [phone] May, Moderate episode of recurren t major depressive disorder F33.1 [facility] [address] [facility] [id number] [address] [place] [address] May, [facility] [address] [facility] [id number] [address] [place] [phone] May, Encounter for well woman exa m with routine gynecological exam Z01.419 and Anxiety F41.9 [facility] [address] [facility] [id number] [address] [place] [address] Apr, [place] [address] [facility] [id number] [address] [place] [phone] Mar, Affective disorder F39 ; Edenilson zodiazepine dependence F13.20 and High risk sexual behavior Z72.51 [facility] [address] [facility] [id number] [address] [place] [address] Jan, Dyspepsia R10.13 ; Gastroeso phageal reflux disease without esophagitis K21.9 and Affective disorder F39 [facility] [address] [facility] [id number] [address] [place] [phone] Jan, Affective disorder F39 [place] [address] [facility] [id number] [address] [place] [phone] Dec, Moderate episode of recurren t major depressive disorder F33.1 [facility] [address] [facility] [id number] [address] [place] [phone] 14 Nov, 2016 Unspecified episodic mood di sorder F39 and Essential hypertension I10 [facility] [address] [facility] [id number] [address] [place] [id number] 02 Nov, 2016 Affective disorder F39 ; Anx iety F41.9 and Unspecified episodic mood disorder F39 [facility] [address] [facility] [id number] [address] [place] [phone] Oct, [facility] [address] [facility] [id number] [address] [place] [phone] Oct, [facility] [address] [place] [place] [id number] Sep, Dysuria R30.0 [facility] [address] [facility] [id number] [address] [place] [phone] Sep, [facility] [address] [facility] [id number] [address] [place] [phone] Aug, [facility] [address] [facility] [id number] [address] [place] [phone] Aug, [facility] [address] [facility] [id number] [address] [place] [phone] Jul, [facility] [address] [facility] [id number] [address] [place] [address] Jul, Acute non-recurrent maxillar y sinusitis J01.00 and Dysuria R30.0 [facility] [address] [facility] [id number] [address] [place] [id number] Jul, Affective disorder F39 ; Ess ential hypertension I10 ; Lumbago with sciatica, unspecified side M54.40 ; Other chronic pain G89.29 and Acute vaginitis N76.0 [facility] [address] [facility] [id number] [address] [place] [phone] Jun, [facility] [address] [facility] [id number] [address] [place] [phone] Jun, [facility] [address] [facility] [id number] [address] [place] [phone] Jun, [facility] [address] [facility] [id number] [address] [place] [address] May, Anxiety F41.9 [facility] [address] [place] [id number] [address] [place] [phone] May, [facility] [address] [address] May, [facility] [address] [address] Apr, [facility] [address] [address] Apr, Affective disorder F39 [facility] [address] [address] Apr, [facility] [address] [address] Apr, Unspecified episodic mood di sorder F39 [facility] [address] [address] Jan, Hypertension I10 [facility] [address] [address] Jan, Benzodiazepine dependence F1 3.20 and Arthritis M19.90 [facility] [address] [address] Nov, [facility] [address] [address] Jul, Migraine G43.909 ; Hypertens ion I10 and Arthritis M19.90 [facility] [address] [address] Jun, [facility] [address] [address] Jun, [facility] [address] [address] Jun, [facility] [address] [address] May, [facility] [address] [id number] 14 Jan, 2015 [facility] [address] [id number] [address] [place] [address], [place] [address] Jan, [facility] [address] [id number] [address] [place] [address], [place] [address] Nov, [facility] [address] [id number] [address] [place] [address], [place] [address] Nov, [facility] [address] [id number] [address] [place] [address], [place] [address] Oct, [facility] [address] [id number] [address] [place] [address], [place] [address] Oct, [facility] [address] [id number] [address] [place] [address], [place] [address] Oct, [facility] [address] [id number] [address] [place] [address], [place] [address] Oct, [facility] [address] [id number] [address] [place] [address], [place] [address] Aug, [facility] [address] [id number] [address] [place] [address], [place] [address] Aug, [facility] [address] [id number] [address] [place] [address], [place] [address] Aug, [facility] [address] [id number] [address] [place] [address], [place] [address] Aug, [facility] [address] [id number] [address] [place] [address], [place] [address] Aug, [facility] [address] [id number] [address] [place] [address], [place] [address] Aug, [facility] [address] [id number] [address] [place] [address], [place] [address] Aug, [facility] [address] [id number] [address] [place] [address], [place] [address] May, [facility] [address] [id number] [facility] [place] [address] May, [facility] [address] [id number] [facility] [place] [address] May, [facility] [address] [id number] [facility] [place] [address] May, [facility] [address] [id number] [facility] [place] [address] May, [facility] [address] [id number] [facility] [place] [address] Apr, [facility] [address] [id number] [address] [place] [address], [place] [address] Apr, [facility] [address] [id number] [address] [place] [address], [place] [address] Apr, [facility] [address] [id number] [address] [place] [address], [place] [address] Apr, [facility] [address] [id number] [address] [place] [address], [place] [address] Apr, [facility] [address] [id number] [address] [place] [address], [place] [address] Apr, [facility] [address] [id number] [address] [place] [address], [place] [address] Apr, [facility] [address] [id number] [address] [place] [address], [place] [address] Apr, [facility] [address] [id number] [address] [place] [address], [place] [address] Mar, [facility] [address] [id number] [address] [place] [address], [place] [address] Mar, [facility] [address] [id number] [address] [place] [address], [place] [address] Mar, [facility] [address] [id number] [address] [place] [address], [place] [address] Mar, [facility] [address] [id number] [facility] [place] [address] Mar, [facility] [address] [id number] [facility] [place] [address] Mar, [facility] [address] [id number] [address] [place] [address], [place] [address] Mar, [facility] [address] [id number] [address] [place] [address], [place] [address] February, [facility] [address] [id number] [address] [place] [address], [place] [address] February, [facility] [address] [id number] [address] [place] [address], [place] [address] Jan, [facility] [address] [id number] [address] [place] [address], [place] [address] Jan, [facility] [address] [id number] [address] [place] [address], [place] [address] Jan, [facility] [address] [id number] [address] [place] [address], [place] [address] Jan, [facility] [address] [id number] [address] [place] [address], [place] [address] Jan, [facility] [address] [id number] [address] [place] [address], [place] [address] Jan, [facility] [address] [id number] [address] [place] [address], [place] [address] Dec, [facility] [address] [id number] [address] [place] [address], [place] [address] Dec, [facility] [address] [id number] [address] [place] [address], [place] [address] Dec, [facility] [address] [id number] [address] [place] [address], [place] [address] Nov, [facility] [address] [id number] [address] [place] [address], [place] [address] 17 Nov, 2013 [facility] [address] [id number] [address] [place] [address], [place] [address] Nov, [facility] [address] [id number] [address] [place] [address], [place] [address] 11 Nov, 2013 [facility] [address] [id number] [address] [place] [address], [place] [address] Oct, [facility] [address] [id number] [address] [place] [address], [place] [address] Oct, [facility] [address] [id number] [address] [place] [address], [place] [address] Oct, [facility] [address] [id number] [address] [place] [address], [place] [address] Oct, [facility] [address] [id number] [address] [place] [address], [place] [address] Oct, [facility] [address] [id number] [address] [place] [address], [place] [address] Oct, [facility] [address] [id number] [address] [place] [address], [place] [address] Sep, [facility] [address] [id number] [address] [place] [address], [place] [address] Sep, [facility] [address] [id number] [address] [place] [address], [place] [address] Aug, [facility] [address] [id number] [address] [place] [address], [place] [address] Aug, [facility] [address] [id number] [address] [place] [address], [place] [address] Aug, [facility] [address] [id number] [address] [place] [address], [place] [address] Aug, [facility] [address] [id number] [address] [place] [address], [place] [address] Jul, [facility] [address] [id number] [address] [place] [address], [place] [address] Jul, [facility] [address] [id number] [address] [place] [address], [place] [address] Jul, [facility] [address] [id number] [address] [place] [address], [place] [address] Jul, [facility] [address] [id number] [address] [place] [address], [place] [address] Jul, [facility] [address] [id number] [address] [place] [address], [place] [address] Apr, [facility] [address] [id number] [address] [place] [address], [place] [address] Apr, [facility] [address] [id number] [address] [place] [address], [place] [address] Mar, [facility] [address] [id number] [address] [place] [address], [place] [address] Mar, [facility] [address] [id number] [address] [place] [address], [place] [address] February, [facility] [address] [id number] [address] [place] [address], [place] [address] Dec, [facility] [address] [id number] [address] [place] [address], [place] [address] Dec, [facility] [address] [id number] [address] [place] [address] Dec, [facility] [address] [id number] [address] [place] [address], [place] [address] Oct, [facility] [address] [id number] [address] [place] [address], [place] [address] Oct, [facility] [address] [id number] [address] [place] [address], [place] [address] Sep, [facility] [address] [id number] [address] [place] [address], [place] [address] Aug, [facility] [address] [id number] [address] [place] [address], [place] [address] Aug, [facility] [address] [id number] [address] [place] [address], [place] [address] Aug, [facility] [address] [id number] [address] [place] [address], [place] [address] Aug, [facility] [address] [id number] [address] [place] [address], [place] [address] Aug, [facility] [address] [id number] [address] [place] [address], [place] [address] Aug, [facility] [address] [id number] [address] [place] [address], [place] [address] Aug, [facility] [address] [id number] [address] [place] [address], [place] [address] Jul, [facility] [address] [id number] [address] [place] [address], [place] [address] Jul, [facility] [address] [id number] [address] [place] [address], [place] [address] Jul, [facility] [address] [id number] [address] [place] [address], [place] [address] Jun, [facility] [address] [id number] [address] [place] [address], [place] [address] Apr, [facility] [address] [id number] [address] [place] [address], [place] [address] Apr, [facility] [address] [id number] [address] [place] [address], [place] [address] Apr, [facility] [address] [id number] [address] [place] [address], [place] [address] Mar, [facility] [address] [id number] [address] [place] [address], [place] [address] Mar, [facility] [address] [id number] [address] [place] [address], [place] [address] Jan, [facility] [address] [id number] [address] [place] [address], [place] [address] Dec, [facility] [address] [id number] [address] [place] [address], [place] [address] May, [facility] [address] [id number] [address] [place] [address], [place] [address] Sep, [facility] [address] [id number] [address] [place] [address], [place] [address] 16 Sep, 2010 [facility] [address] [id number] [address] [place] [address], [place] [address] Aug, [facility] [address] [id number] [address] [place] [address], [place] [address] Jul, [facility] [address] [id number] [address] [place] [address], [place] [address] Jul, [facility] [address] [id number] [address] [place] [address], [place] [address] 15 Apr, 2010 [facility] [address] [id number] [address] [place] [address], [place] [address] Jan, [facility] [address] [id number] [address] [place] [address], [place] [id number] Aug, [facility] [address] [id number] [address] [place] [address], [place] [id number] Aug, [facility] [address] [id number] [address] [place] [address], [place] [id number] Aug, [facility] [address] [id number] [address] [place] [address], [place] [address] Aug, [facility] [address] [id number] [address] [place] [address], [place] [id number] 29 Jul, 2009 [facility] [address] [id number] [address] [place] [address], [place] [address] May, [facility] [address] [facility] [id number] [address] [place] [id number] Apr, [facility] [address] [facility] [id number] [address] [place] [id number] February, [facility] [address] [facility] [id number] [address] [place] [id number] Dec, IMMUNIZATIONS No Known Immunizations SOCIAL HISTORY [...] Pneumonia 2013 Hospitalization History kidney stones 2014 Hospitalization History Suicidal ideation/intentional overdo [facility] 03/16/18 Hospitalization History Behavorial hospitalization [facility] 03/2018
--- OUTSIDE RECORDS SUMMARY | 2020-02-24 12:25 | XMS REPORT ---
Author Author Reena Bryant Organization [facility] Address [address] [place] [address] Care Team Providers Care Production Helper Name Role Phone SANDRINE Bryant Unavailable PROBLEMS Type Condition ICD9-CM Code [id number] Code Onset Dates Condition S tatus SNOMED Code Problem Hypertension I10 Active 8389621 3 Problem Bipolar II disorder F31.81 Active 18061145 Problem Arthritis M19.90 Active 1812377 Problem Migraine G43.909 Active 73439914 Problem Lumbago with sciatica, unspecified side M54.40 Active 651721274 Problem Other chronic pain G89.29 Active 8 3141572 Problem Anxiety F41.9 Active 67126224 Problem IV drug abuse F19.10 Active 118182 006 Problem Essential hypertension I10 Active 65611810 Problem Opioid use disorder, severe, in early remission, dependenc e F11.21 Active 806501151 Problem Benzodiazepine dependence F13.20 Acti ve 396276073 Problem Moderate episode of recurrent major depressive disorder F33.1 Active 405992118 Problem Affective disorder F39 Active 4 2593788 Problem Gastroesophageal reflux disease without esophagitis K21.9 Active 763464921 Problem Psoriasis L40.9 Active 9157529 ALLERGIES No Information ENCOUNTERS Encounter Location Date Diagnosis [facility] [address] [facility] [id number] [address] [place] [phone] 26 Jun, 2019 [facility] [address] [facility] [id number] [address] [place] [phone] 18 Jun, 2019 Opioid use disorder, severe, in early remission, dependence F11.21 [facility] [address] [facility] [id number] [address] [place] [phone] 17 Jun, 2019 [facility] [address] [facility] [id number] [address] [place] [phone] Jun, [facility] [address] [facility] [id number] [address] [place] [phone] Jun, Bipolar II disorder F31.81 ; IV drug abuse F19.10 and Opioid use disorder, severe, in early remission, dependence F11.21 [facility] [address] [facility] [id number] [address] [place] [phone] Jun, [facility] [address] [facility] [id number] [address] [place] [phone] May, [facility] [address] [facility] [id number] [address] [place] [phone] May, Bipolar II disorder F31.81 [facility] [address] [facility] [id number] [address] [place] [phone] May, Bipolar II disorder F31.81 a nd Hypertension I10 [facility] [address] [facility] [id number] [address] [place] [phone] Apr, [facility] [address] [place], [place] [id number] 57 February, IV drug abuse F19.10 ; Screen for STD (sexually transmitted disease) Z11.3 and Unprotected sex Z72.51 [facility] [address] [facility] [id number] [address] [place] [phone] Dec, [facility] [address] [facility] [id number] [address] [place] [phone] Jul, Moderate episode of recurren t major depressive disorder F33.1 [facility] [address] [id number] [address] [place] [phone] May, [facility] [address] [facility] [id number] [address] [place] [phone] Apr, Moderate episode of recurren t major depressive disorder F33.1 [facility] [address] [facility] [id number] [address] [place] [phone] Apr, Moderate episode of recurren t major depressive disorder F33.1 [facility] [address] [id number] [address] [place] [phone] Apr, [facility] [address] [id number] [address] [place] [phone] Apr, Moderate episode of recurren t major depressive disorder F33.1 [facility] [address] [id number] [address] [place] [phone] Mar, [facility] [address] [id number] [address] [place] [phone] Mar, Moderate episode of recurren t major depressive disorder F33.1 and Hypertension I10 [facility] [address] [id number] [address] [place] [phone] Mar, Bipolar II disorder F31.81 [facility] [address] [id number] [address] [place] [phone] February, [facility] [address] [id number] [address] [place] [phone] February, [facility] [address] [id number] [address] [place] [phone] February, [facility] [address] [id number] [address] [place] [phone] Dec, [facility] [address] [id number] [address] [place] [phone] Nov, Psoriasis L40.9 [facility] [address] [id number] [address] [place] [phone] Nov, [facility] [address] [id number] [address] [place] [phone] Nov, Anxiety F41.9 [facility] [address] [id number] [address] [place] [phone] Oct, [facility] [address] [id number] [address] [place] [phone] Oct, [facility] [address] [id number] [address] [place] [phone] Oct, [facility] [address] [id number] [address] [place] [phone] Oct, [facility] [address] [id number] [address] [place] [phone] Sep, [facility] [address] [id number] [address] [place] [phone] Sep, [facility] [address] [id number] [address] [place] [id number] Aug, Dental examination Z01.20 an d Dental caries K02.9 [facility] [address] [id number] [address] [place] [phone] Aug, [facility] [address] [id number] [address] [place] [phone] Jul, [facility] [address] [id number] [address] [place] [phone] Jul, [facility] [address] [id number] [address] [place] [phone] Jul, Moderate episode of recurren t major depressive disorder F33.1 [facility] [address] [id number] [address] [place] [phone] 18 Jun, 2017 Moderate episode of recurren t major depressive disorder F33.1 and Anxiety F41.9 [facility] [address] [id number] [address] [place] [phone] 14 Jun, 2017 [facility] [address] [id number] [address] [place] [phone] 11 Jun, 2017 Anxiety F41.9 [facility] [address] [id number] [address] [place] [phone] Jun, Moderate episode of recurren t major depressive disorder F33.1 [facility] [address] [id number] [address] [place] [phone] Jun, [facility] [address] [facility] [id number] [address] [place] [phone] May, Moderate episode of recurren t major depressive disorder F33.1 [facility] [address] [facility] [id number] [address] [place] [phone] May, [facility] [address] [facility] [id number] [address] [place] [phone] May, Encounter for well woman exa m with routine gynecological exam Z01.419 and Anxiety F41.9 [facility] [address] [facility] [id number] [address] [place] [phone] Apr, [facility] [address] [facility] [id number] [address] [place] [phone] Mar, Affective disorder F39 ; Edenilson zodiazepine dependence F13.20 and High risk sexual behavior Z72.51 [facility] [address] [facility] [id number] [address] [place] [phone] Jan, Dyspepsia R10.13 ; Gastroeso phageal reflux disease without esophagitis K21.9 and Affective disorder F39 [place] [id number] [facility] [id number] [address] [place] [phone] Jan, Affective disorder F39 [facility] [address] [facility] [id number] [address] [place] [phone] Dec, Moderate episode of recurren t major depressive disorder F33.1 [facility] [address] [facility] [id number] [address] [place] [phone] 14 Nov, 2016 Unspecified episodic mood di sorder F39 and Essential hypertension I10 [facility] [address] [facility] [id number] [address] [place] [phone] 02 Nov, 2016 Affective disorder F39 ; Anx iety F41.9 and Unspecified episodic mood disorder F39 [facility] [address] [facility] [id number] [address] [place] [phone] Oct, [facility] [id number] [place] [phone] Oct, [facility] [address] [place] [place] [id number] Sep, Dysuria R30.0 [facility] [address] [facility] [id number] [address] [place] [phone] Sep, [facility] [address] [place] [id number] [address] [place] [phone] Aug, [facility] [address] [place] [id number] [place] [phone] Aug, [facility] [address] [place] [id number] [place] [phone] Jul, [facility] [address] [place] [id number] [address] [place] [phone] Jul, Acute non-recurrent maxillar y sinusitis J01.00 and Dysuria R30.0 [facility] [address] [place] [id number] [address] [place] [phone] Jul, Affective disorder F39 ; Ess ential hypertension I10 ; Lumbago with sciatica, unspecified side M54.40 ; Other chronic pain G89.29 and Acute vaginitis N76.0 [facility] [address] [place] [id number] [address] [place] [phone] Jun, [facility] [id number] [place] [phone] Jun, [facility] [address] [place] [id number] [address] [place] [phone] Jun, [facility] [address] [place] [id number] [address] [place] [phone] May, Anxiety F41.9 [facility] [address] [place] [id number] [address] [place] [phone] May, [facility] [address] [place] [id number] [address] [place] [phone] May, [facility] [address] [facility] [id number] [address] [place] [phone] Apr, [facility] [address] [facility] [id number] [place] [phone] Apr, Affective disorder F39 [facility] [address] [facility] [id number] [address] [place] [phone] Apr, [facility] [address] [facility] [id number] [place] [phone] Apr, Unspecified episodic mood di sorder F39 [facility] [address] [facility] [id number] [address] [place] [phone] Jan, Hypertension I10 [facility] [address] [facility] [id number] [place] [phone] Jan, Benzodiazepine dependence F1 3.20 and Arthritis M19.90 [facility] [address] [place] [id number] [address] [place] [phone] Nov, [facility] [address] [address] Jul, Migraine G43.909 ; Hypertens ion I10 and Arthritis M19.90 [facility] [address] [facility] [id number] [address] [place] [phone] Jun, [facility] [address] [place] [id number] [address] [place] [phone] Jun, [facility] [address] [facility] [id number] [address] [place] [id number] Jun, [facility] [address] [facility] [id number] [address] [place] [phone] May, [facility] [address] [facility] [id number] [address] [place] [phone] Jan, [facility] [address] [facility] [id number] [address] [place] [phone] Jan, [facility] [address] [id number] [address] [place] [address], [place] [address] Nov, [facility] [address] [id number] [address] [place] [address], [place] [address] Nov, [facility] [address] [id number] [address] [place] [address], [place] [address] Oct, [facility] [address] [id number] [address] [place] [address], [place] [address] Oct, [facility] [address] [id number] [address] [place] [address], [place] [address] Oct, [facility] [address] [id number] [address] [place] [address], [place] [address] Oct, [facility] [address] [id number] [address] [place] [address], [place] [address] Aug, [facility] [address] [id number] [address] [place] [address], [place] [address] Aug, [facility] [address] [id number] [address] [place] [address], [place] [address] Aug, [facility] [address] [id number] [address] [place] [address], [place] [address] Aug, [facility] [address] [id number] [address] [place] [address], [place] [address] Aug, [facility] [address] [id number] [address] [place] [address], [place] [address] Aug, [facility] [address] [id number] [address] [place] [address], [place] [address] Aug, [facility] [address] [id number] [address] [place] [address], [place] [address] May, [facility] [address] [id number] [address] [place] [address], [place] [address] May, [facility] [address] [id number] [address] [place] [address], [place] [address] May, [facility] [address] [id number] [facility] [place] [address] May, [facility] [address] [id number] [address] [place] [address], [place] [address] May, [facility] [address] [id number] [address] [place] [address], [place] [address] Apr, [facility] [address] [id number] [address] [place] [address], [place] [address] Apr, [facility] [address] [id number] [address] [place] [address], [place] [address] Apr, [facility] [address] [id number] [address] [place] [address], [place] [address] Apr, [facility] [address] [id number] [address] [place] [address], [place] [address] Apr, [facility] [address] [id number] [address] [place] [address], [place] [address] Apr, [facility] [address] [id number] [address] [place] [address], [place] [address] Apr, [facility] [address] [id number] [address] [place] [address], [place] [address] Apr, [facility] [address] [id number] [address] [place] [address], [place] [address] Mar, [facility] [address] [id number] [address] [place] [address], [place] [address] Mar, [facility] [address] [id number] [address] [place] [address], [place] [address] Mar, [facility] [address] [id number] [address] [place] [address], [place] [address] Mar, [facility] [address] [id number] [address] [place] [address], [place] [address] Mar, [facility] [address] [id number] [facility] [place] [address] Mar, [facility] [address] [id number] [address] [place] [address], [place] [address] Mar, [facility] [address] [id number] [address] [place] [address], [place] [address] February, [facility] [address] [id number] [address] [place] [address], [place] [address] February, [facility] [address] [id number] [address] [place] [address], [place] [address] Jan, [facility] [address] [id number] [address] [place] [address], [place] [address] Jan, [facility] [address] [id number] [address] [place] [address], [place] [address] Jan, [facility] [address] [id number] [address] [place] [address], [place] [address] Jan, [facility] [address] [id number] [address] [place] [address], [place] [address] Jan, [facility] [address] [id number] [address] [place] [address], [place] [address] Jan, [facility] [address] [id number] [address] [place] [address], [place] [address] Dec, [facility] [address] [id number] [address] [place] [address], [place] [address] Dec, [facility] [address] [id number] [address] [place] [address], [place] [address] Dec, [facility] [address] [id number] [address] [place] [address], [place] [address] Nov, [facility] [address] [id number] [address] [place] [address], [place] [address] Nov, [facility] [address] [id number] [address] [place] [address], [place] [address] Nov, [facility] [address] [id number] [address] [place] [address], [place] [address] Nov, [facility] [address] [id number] [address] [place] [address], [place] [address] Oct, [facility] [address] [id number] [address] [place] [address], [place] [address] Oct, [facility] [address] [id number] [address] [place] [address], [place] [address] Oct, [facility] [address] [id number] [address] [place] [address], [place] [address] Oct, [facility] [address] [id number] [address] [place] [address], [place] [address] Oct, [facility] [address] [id number] [address] [place] [address], [place] [address] Oct, [facility] [address] [id number] [address] [place] [address], [place] [address] Sep, [facility] [address] [id number] [address] [place] [address], [place] [address] Sep, [facility] [address] [id number] [address] [place] [address] Aug, [facility] [address] [id number] [address] [place] [id number] Aug, [facility] [address] [id number] [address] [place] [address] Aug, [facility] [address] [id number] [address] [place] [address], [place] [address] Aug, [facility] [address] [id number] [address] [place] [id number] Jul, [facility] [address] [id number] [address] [place] [id number] Jul, [facility] [address] [id number] [address] [place] [address], [place] [address] Jul, [facility] [address] [id number] [address] [place] [address], [place] [address] Jul, [facility] [address] [id number] [address] [place] [address], [place] [address] Jul, [facility] [address] [id number] [address] [place] [address], [place] [address] Apr, [facility] [address] [id number] [address] [place] [address], [place] [address] Apr, [facility] [address] [id number] [address] [place] [address], [place] [address] Mar, [facility] [address] [id number] [address] [place] [address], [place] [address] Mar, [facility] [address] [id number] [address] [place] [address], [place] [address] February, [facility] [address] [id number] [address] [place] [address], [place] [address] Dec, [facility] [address] [id number] [address] [place] [address], [place] [address] Dec, [facility] [address] [id number] [address] [place] [address], [place] [address] Dec, [facility] [address] [id number] [address] [place] [address], [place] [address] Oct, [facility] [address] [id number] [address] [place] [address], [place] [address] Oct, [facility] [address] [id number] [address] [place] [address], [place] [address] Sep, [facility] [address] [id number] [address] [place] [address], [place] [address] Aug, [facility] [address] [id number] [address] [place] [address], [place] [address] Aug, [facility] [address] [id number] [address] [place] [address], [place] [address] Aug, [facility] [address] [id number] [address] [place] [address], [place] [address] Aug, [facility] [address] [id number] [address] [place] [address], [place] [address] Aug, [facility] [address] [id number] [address] [place] [address], [place] [address] Aug, [facility] [address] [id number] [address] [place] [address], [place] [address] Aug, [facility] [address] [id number] [address] [place] [address], [place] [address] Jul, [facility] [address] [id number] [address] [place] [address], [place] [address] Jul, [facility] [address] [id number] [address] [place] [address], [place] [address] Jul, [facility] [address] [id number] [address] [place] [address], [place] [address] Jun, [facility] [address] [id number] [address] [place] [address], [place] [address] Apr, [facility] [address] [id number] [address] [place] [address], [place] [address] Apr, [facility] [address] [address] [id number] [address] [place] [address], [place] [address] Apr, [facility] [address] [id number] [address] [place] [address], [place] [address] Mar, [facility] [address] [id number] [address] [place] [address], [place] [address] Mar, [facility] [address] [id number] [address] [place] [address], [place] [address] Jan, [facility] [address] [id number] [address] [place] [address], [place] [address] Dec, [facility] [address] [id number] [address] [place] [address], [place] [address] 15 May, 2011 [facility] [address] [id number] [address] [place] [address], [place] [address] Sep, [facility] [address] [id number] [address] [place] [address], [place] [address] 16 Sep, 2010 [facility] [address] [id number] [address] [place] [address], [place] [address] Aug, [facility] [address] [id number] [address] [place] [address], [place] [address] Jul, [facility] [address] [id number] [address] [place] [address], [place] [address] Jul, [facility] [address] [id number] [address] [place] [address], [place] [address] Apr, [facility] [address] [id number] [address] [place] [address], [place] [address] Jan, [facility] [address] [id number] [address] [place] [address], [place] [address] Aug, [facility] [address] [id number] [address] [place] [address], [place] [address] Aug, [facility] [address] [id number] [address] [place] [address], [place] [address] Aug, [facility] [address] [id number] [address] [place] [address] Aug, [facility] [address] [id number] [address] [place] [address], [place] [address] 29 Jul, 2009 [facility] [address] [id number] [address] [place] [address], [place] [address] May, [facility] [address] [id number] [address] [place] [address], [place] [address] 15 Apr, 2009 [facility] [address] [id number] [address] [place] [address] February, [facility] [address] [facility] [id number] [address] [place] [id number] Dec, IMMUNIZATIONS No Known Immunizations SOCIAL HISTORY Never Assessed REASON FOR VISIT PLAN OF CARE VITAL SIGNS Height 67 in 2014-09-16 Weight 179.29 lbs 2014-09-16 Temperature 98.4 degrees Fahrenheit 2014-09-16 Heart Rate 98 bpm 2014-09-16 Respiratory Rate 22 2014-09-16 Blood pressure systolic 130 mmHg 2014-09-16 Blood pressure diastolic 90 mmHg 2014-09-16 MEDICATIONS Unknown Medications RESULTS No Results PROCEDURES Procedure Date Ordered Result Body Site URINE CULTURE/COLONY COUNT Sep 16, 2014 DRUG SCREEN, QUALITATE/MULTI Sep 16, 2014 URINALYSIS, AUTO, W/O SCOPE Sep 16, 2014 INSTRUCTIONS MEDICATIONS ADMINISTERED No Known Medications MEDICAL (GENERAL) HISTORY Type Description Date Medical History migraine headaches Medical History Unspecified backache Surgical History Hysterectomy 2002 Surgical History Bladder surgeries x 3 Hospitalization History Pneumonia 2013 Hospitalization History kidney stones 2013 Hospitalization History Suicidal ideation/intentional overdo [facility] 03/16/18 Hospitalization History Behavorial hospitalization [facility] 03/2018
--- OUTSIDE RECORDS SUMMARY | 2020-02-24 12:25 | XMS REPORT ---
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 Name Role Phone SANDRINE Bryant Unavailable PROBLEMS Type Condition ICD9-CM Code [id number] Code Onset Dates Condition S tatus SNOMED Code Problem Hypertension I10 Active 4500120 3 Problem Bipolar II disorder F31.81 Active 89686204 Problem Arthritis M19.90 Active 6743037 Problem Migraine G43.909 Active 06924574 Problem Lumbago with sciatica, unspecified side M54.40 Active 466483112 Problem Other chronic pain G89.29 Active 8 0488891 Problem Anxiety F41.9 Active 39064349 Problem IV drug abuse F19.10 Active 159475 006 Problem Essential hypertension I10 Active 14640530 Problem Opioid use disorder, severe, in early remission, dependenc e F11.21 Active 160925444 Problem Benzodiazepine dependence F13.20 Acti ve 073841918 Problem Moderate episode of recurrent major depressive disorder F33.1 Active 273457605 Problem Affective disorder F39 Active 4 5757654 Problem Gastroesophageal reflux disease without esophagitis K21.9 Active 605960399 Problem Psoriasis L40.9 Active 9894524 ALLERGIES No Information ENCOUNTERS Encounter Location Date Diagnosis [facility] [address] [facility] [id number] [address] [place] [address] Jul, [facility] [address] [facility] [id number] [address] [place] [address] Jul, [facility] [address] [facility] [id number] [address] [place] [address] Jun, Opioid use disorder, severe, in early remission, dependence F11.21 [facility] [address] [facility] [id number] [address] [place] [address] Jun, Opioid use disorder, severe, in early remission, dependence F11.21 [facility] [address] [id number] [address] [place] [address] 17 Jun, 2019 [facility] [address] [facility] [id number] [address] [place] [address] Jun, [facility] [address] [id number] [address] [place] [address] Jun, Bipolar II disorder F31.81 ; IV drug abuse F19.10 and Opioid use disorder, severe, in early remission, dependence F11.21 [facility] [address] [id number] [address] [place] [address] Jun, [facility] [address] [facility] [id number] [address] [place] [address] May, [facility] [address] [facility] [id number] [address] [place] [address] May, Bipolar II disorder F31.81 [facility] [address] [id number] [address] [place] [address] May, Bipolar II disorder F31.81 a nd Hypertension I10 [facility] [address] [facility] [id number] [address] [place] [address] Apr, [facility] [address] [place], [place] [id number] 57 February, IV drug abuse F19.10 ; Screen for STD (sexually transmitted disease) Z11.3 and Unprotected sex Z72.51 [facility] [address] [facility] [id number] [address] [place] [address] Dec, [facility] [address] [facility] [id number] [address] [place] [address] Jul, Moderate episode of recurren t major depressive disorder F33.1 [facility] [address] [facility] [id number] [address] [place] [address] May, [facility] [address] [facility] [id number] [address] [place] [address] Apr, Moderate episode of recurren t major depressive disorder F33.1 [facility] [address] [id number] [address] [place] [address] Apr, Moderate episode of recurren t major depressive disorder F33.1 [facility] [address] [id number] [address] [place] [address] Apr, [facility] [address] [id number] [address] [place] [address] Apr, Moderate episode of recurren t major depressive disorder F33.1 [facility] [address] [id number] [address] [place] [address] Mar, [facility] [address] [id number] [address] [place] [address] Mar, Moderate episode of recurren t major depressive disorder F33.1 and Hypertension I10 [facility] [address] [id number] [address] [place] [address] Mar, Bipolar II disorder F31.81 [facility] [address] [id number] [address] [place] [address] February, [facility] [address] [id number] [address] [place] [address] February, [facility] [address] [id number] [address] [place] [address] February, [facility] [address] [id number] [address] [place] [address] Dec, [facility] [address] [id number] [address] [place] [address] Nov, Psoriasis L40.9 [facility] [address] [id number] [address] [place] [address] Nov, [facility] [address] [id number] [address] [place] [address] Nov, Anxiety F41.9 [facility] [address] [id number] [address] [place] [address] Oct, [facility] [address] [id number] [address] [place] [address] Oct, [facility] [address] [id number] [address] [place] [address] Oct, [facility] [address] [id number] [address] [place] [address] Oct, [facility] [address] [id number] [address] [place] [address] Sep, [facility] [address] [id number] [address] [place] [address] Sep, [facility] [address] [id number] [address] [place] [id number] Aug, Dental examination Z01.20 an d Dental caries K02.9 [facility] [address] [id number] [address] [place] [address] Aug, [facility] [address] [id number] [address] [place] [address] Jul, [facility] [address] [id number] [address] [place] [address] Jul, [facility] [address] [id number] [address] [place] [address] Jul, Moderate episode of recurren t major depressive disorder F33.1 [facility] [address] [id number] [address] [place] [address] 18 Jun, 2017 Moderate episode of recurren t major depressive disorder F33.1 and Anxiety F41.9 [facility] [address] [id number] [address] [place] [address] 14 Jun, 2017 [facility] [address] [id number] [address] [place] [address] 11 Sep, 2017 Anxiety F41.9 [facility] [address] [facility] [id number] [address] [place] [address] Jun, Moderate episode of recurren t major depressive disorder F33.1 [facility] [address] [facility] [id number] [address] [place] [address] Jun, [facility] [address] [facility] [id number] [address] [place] [address] May, Moderate episode of recurren t major depressive disorder F33.1 [facility] [address] [facility] [id number] [address] [place] [address] May, [facility] [address] [facility] [id number] [address] [place] [address] May, Encounter for well woman exgio m with routine gynecological exam Z01.419 and Anxiety F41.9 [facility] [address] [facility] [id number] [address] [place] [address] Apr, [facility] [address] [facility] [id number] [address] [place] [address] Mar, Affective disorder F39 ; Edenilson zodiazepine dependence F13.20 and High risk sexual behavior Z72.51 [facility] [place] [address] [place] [id number] [address] [place] [address] Jan, Dyspepsia R10.13 ; Gastroeso phageal reflux disease without esophagitis K21.9 and Affective disorder F39 [facility] [address] [facility] [id number] [address] [place] [address] Jan, Affective disorder F39 [facility] [address] [facility] [id number] [address] [place] [address] Dec, Moderate episode of recurren t major depressive disorder F33.1 [facility] [address] [facility] [id number] [address] [place] [address] 14 Nov, 2016 Unspecified episodic mood di sorder F39 and Essential hypertension I10 [facility] [address] [facility] [id number] [address] [place] [address] Nov, Affective disorder F39 ; Anx iety F41.9 and Unspecified episodic mood disorder F39 [facility] [address] [facility] [id number] [address] [place] [address] Oct, [facility] [address] [facility] [id number] [address] [place] [address] Oct, [facility] [address] [place], [place] [id number] 57 Sep, Dysuria R30.0 [facility] [address] [facility] [id number] [address] [place] [address] Sep, [facility] [address] [facility] [id number] [address] [place] [address] Aug, [facility] [address] [facility] [id number] [address] [place] [address] Aug, [facility] [address] [facility] [id number] [address] [place] [address] Jul, [facility] [address] [facility] [id number] [address] [place] [address] Jul, Acute non-recurrent maxillar y sinusitis J01.00 and Dysuria R30.0 [facility] [address] [facility] [id number] [address] [place] [address] Jul, Affective disorder F39 ; Ess ential hypertension I10 ; Lumbago with sciatica, unspecified side M54.40 ; Other chronic pain G89.29 and Acute vaginitis N76.0 [facility] [address] [facility] [id number] [address] [place] [address] Jun, [facility] [address] [facility] [id number] [address] [place] [address] Jun, [facility] [address] [facility] [id number] [address] [place] [address] 15 Jun, 2016 [facility] [address] [facility] [id number] [address] [place] [address] May, Anxiety F41.9 [facility] [address] [facility] [id number] [address] [place] [address] May, [facility] [address] [facility] [id number] [address] [place] [address] May, [facility] [address] [facility] [id number] [address] [place] [address] Apr, [facility] [address] [facility] [id number] [address] [place] [address] Apr, Affective disorder F39 [facility] [address] [facility] [id number] [place] [address] Apr, [facility] [address] [place] [id number] [address] [place] [address] Apr, Unspecified episodic mood di sorder F39 [facility] [address] [facility] [id number] [address] [place] [address] Jan, Hypertension I10 [facility] [address] [place] [id number] [address] [place] [address] Jan, Benzodiazepine dependence F1 3.20 and Arthritis M19.90 [facility] [address] [place] [id number] [address] [place] [address] Nov, [facility] [address] [place] [id number] [address] [place] [address] Jul, Migraine G43.909 ; Hypertens ion I10 and Arthritis M19.90 [facility] [address] [facility] [id number] [address] [place] [address] Jun, [facility] [address] [address] Jun, [facility] [address] [place] [id number] [address] [place] [address] Jun, [facility] [address] [address] May, [facility] [address] [id number] [address] [place] [address], [place] [address] Jan, [facility] [address] [id number] [address] [place] [address], [place] [address] Jan, [facility] [address] [id number] [address] [place] [address], [place] [address] Nov, [facility] [address] [id number] [address] [place] [address], [place] [address] Nov, [facility] [address] [id number] [address] [place] [address], [place] [address] Oct, [facility] [address] [id number] [address] [place] [address], [place] [address] Oct, [facility] [address] [id number] [address] [place] [address], [place] [address] Oct, [facility] [address] [id number] [address] [place] [address], [place] [address] Oct, [facility] [address] [id number] [address] [place] [address], [place] [address] Aug, [facility] [address] [id number] [address] [place] [address], [place] [address] Aug, [facility] [address] [id number] [address] [place] [address], [place] [address] Aug, [facility] [address] [id number] [address] [place] [address], [place] [address] Aug, [facility] [address] [id number] [address] [place] [address], [place] [address] Aug, [facility] [address] [id number] [address] [place] [address], [place] [address] Aug, [facility] [address] [id number] [address] [place] [address], [place] [address] Aug, [facility] [address] [id number] [facility] [place] [address] May, [facility] [address] [id number] [facility] [place] [address] May, [facility] [address] [id number] [facility] [place] [address] May, [facility] [address] [id number] [facility] [place] [address] May, [facility] [address] [id number] [facility] [place] [address] May, [facility] [address] [id number] [address] [place] [address], [place] [address] Apr, [facility] [address] [id number] [address] [place] [address], [place] [address] Apr, [facility] [address] [id number] [address] [place] [address], [place] [address] Apr, [facility] [address] [id number] [address] [place] [address], [place] [address] Apr, [facility] [address] [id number] [address] [place] [address], [place] [address] Apr, [facility] [address] [id number] [address] [place] [address], [place] [address] Apr, [facility] [address] [id number] [address] [place] [address], [place] [address] Apr, [facility] [address] [id number] [address] [place] [address], [place] [address] Apr, [facility] [address] [id number] [address] [place] [address], [place] [address] Mar, [facility] [address] [id number] [address] [place] [address], [place] [address] Mar, [facility] [address] [id number] [address] [place] [address], [place] [address] Mar, [facility] [address] [id number] [facility] [place] [address] Mar, [facility] [address] [id number] [facility] [place] [address] Mar, [facility] [address] [id number] [facility] [place] [address] Mar, [facility] [address] [id number] [address] [place] [address], [place] [address] Mar, [facility] [address] [id number] [facility] [place] [address] February, [facility] [address] [id number] [address] [place] [address], [place] [address] February, [facility] [address] [id number] [address] [place] [address], [place] [address] Jan, [facility] [address] [id number] [address] [place] [address], [place] [address] Jan, [facility] [address] [id number] [address] [place] [address], [place] [address] Jan, [facility] [address] [id number] [address] [place] [address], [place] [address] Jan, [facility] [address] [id number] [address] [place] [address], [place] [address] Jan, [facility] [address] [id number] [address] [place] [address], [place] [address] Jan, [facility] [address] [id number] [address] [place] [address], [place] [address] Dec, [facility] [address] [id number] [address] [place] [address], [place] [address] Dec, [facility] [address] [id number] [address] [place] [address], [place] [address] Dec, [facility] [address] [id number] [address] [place] [address], [place] [address] 17 Nov, 2013 [facility] [address] [id number] [address] [place] [address], [place] [address] Nov, [facility] [address] [id number] [address] [place] [address], [place] [address] Nov, [facility] [address] [id number] [address] [place] [address], [place] [address] Nov, [facility] [address] [id number] [address] [place] [address], [place] [address] Oct, [facility] [address] [id number] [address] [place] [address], [place] [address] Oct, [facility] [address] [id number] [address] [place] [address], [place] [address] Oct, [facility] [address] [id number] [address] [place] [address], [place] [address] Oct, [facility] [address] [id number] [address] [place] [address], [place] [address] Oct, [facility] [address] [id number] [address] [place] [address], [place] [address] Oct, [facility] [address] [id number] [address] [place] [address], [place] [address] Sep, [facility] [address] [id number] [address] [place] [address], [place] [address] Sep, [facility] [address] [id number] [address] [place] [address], [place] [address] Aug, [facility] [address] [id number] [address] [place] [address], [place] [address] Aug, [facility] [address] [id number] [address] [place] [address], [place] [address] Aug, [facility] [address] [id number] [address] [place] [address], [place] [address] Aug, [facility] [address] [id number] [address] [place] [address], [place] [address] Jul, [facility] [address] [id number] [address] [place] [address], [place] [address] Jul, [facility] [address] [id number] [address] [place] [address], [place] [address] Jul, [facility] [address] [id number] [address] [place] [address], [place] [address] Jul, [facility] [address] [id number] [address] [place] [address], [place] [address] Jul, [facility] [address] [id number] [address] [place] [address], [place] [address] Apr, [facility] [address] [id number] [address] [place] [address], [place] [address] Apr, [facility] [address] [id number] [address] [place] [address], [place] [address] Mar, [facility] [address] [id number] [address] [place] [address], [place] [address] Mar, [facility] [address] [id number] [address] [place] [address], [place] [address] February, [facility] [address] [id number] [address] [place] [address], [place] [address] Dec, [facility] [address] [id number] [address] [place] [id number] Dec, [facility] [address] [id number] [address] [place] [address], [place] [address] Dec, [facility] [address] [id number] [address] [place] [address], [place] [address] Oct, [facility] [address] [id number] [address] [place] [phone] Oct, [facility] [address] [id number] [address] [place] [phone] Sep, [facility] [address] [id number] [address] [place] [address], [place] [address] Aug, [facility] [address] [id number] [address] [place] [address], [place] [address] Aug, [facility] [address] [id number] [address] [place] [address], [place] [address] Aug, [facility] [address] [id number] [address] [place] [address], [place] [address] Aug, [facility] [address] [id number] [address] [place] [address], [place] [address] Aug, [facility] [address] [id number] [address] [place] [address], [place] [address] Aug, [facility] [address] [id number] [address] [place] [address], [place] [address] Aug, [facility] [address] [id number] [address] [place] [address], [place] [address] Jul, [facility] [address] [id number] [address] [place] [address], [place] [address] Jul, [facility] [address] [id number] [address] [place] [address], [place] [address] Jul, [facility] [address] [id number] [address] [place] [address], [place] [address] Jun, [facility] [address] [id number] [address] [place] [address], [place] [address] Apr, [facility] [address] [id number] [address] [place] [address], [place] [address] Apr, [facility] [address] [id number] [address] [place] [address], [place] [address] Apr, [facility] [address] [id number] [address] [place] [address], [place] [address] Mar, [facility] [address] [id number] [address] [place] [address], [place] [address] 07 Mar, 2012 [facility] [address] [id number] [address] [place] [address], [place] [address] 20 Jan, 2012 [facility] [address] [id number] [address] [place] [address], [place] [address] 21 Dec, 2011 [facility] [address] [id number] [address] [place] [address], [place] [address] 15 May, 2011 [facility] [address] [id number] [address] [place] [address], [place] [address] Sep, [facility] [address] [id number] [address] [place] [address], [place] [address] 16 Sep, 2010 [facility] [address] [id number] [address] [place] [address], [place] [address] 18 Aug, 2010 [facility] [address] [id number] [address] [place] [address], [place] [address] Jul, [facility] [address] [id number] [address] [place] [address], [place] [address] Jul, [facility] [address] [id number] [address] [place] [address], [place] [address] 15 Apr, 2010 [facility] [address] [id number] [address] [place] [address], [place] [phone] 12 Jan, 2010 [facility] [address] [id number] [address] [place] [address], [place] [id number] Aug, [facility] [address] [id number] [address] [place] [address], [place] [phone] Aug, [facility] [address] [id number] [address] [place] [address], [place] [phone] Aug, [facility] [address] [id number] [address] [place] [address], [place] [phone] 06 Aug, 2009 [facility] [address] [id number] [address] [place] [address], [place] [id number] Jul, [facility] [address] [facility] [id number] [address] [place] [phone] May, [facility] [address] [facility] [id number] [address] [place] [id number] Apr, [facility] [address] [facility] [id number] [address] [place] [id number] February, [facility] [address] [facility] [id number] [address] [place] [phone] Dec, IMMUNIZATIONS No Known Immunizations SOCIAL HISTORY Never Assessed REASON FOR VISIT PLAN OF CARE VITAL SIGNS Height 67 in 2014-04-13 Weight 163.25 lbs 2014-04-13 Temperature 99.2 degrees Fahrenheit 2014-04-13 Heart Rate 142 bpm 2014-04-13 Respiratory Rate 24 2014-04-13 Blood pressure systolic 132 mmHg 2014-04-13 Blood pressure diastolic 96 mmHg 2014-04-13 MEDICATIONS Unknown Medications RESULTS No Results PROCEDURES Procedure Date Ordered Result Body Site MEASURE BLOOD OXYGEN LEVEL April 13, 2014 INSTRUCTIONS MEDICATIONS ADMINISTERED No Known Medications MEDICAL (GENERAL) HISTORY Type Description Date Medical History migraine headaches Medical History Unspecified backache Surgical History Hysterectomy 2002 Surgical History Bladder surgeries x 3 Hospitalization History Pneumonia 2013 Hospitalization History kidney stones 2013 Hospitalization History Suicidal ideation/intentional overdo [facility] 03/16/18 Hospitalization History Behavorial hospitalization [facility] 03/2018
--- OUTSIDE RECORDS SUMMARY | 2020-02-24 12:25 | XMS REPORT ---
Author Author PETE Moisedavonte GARCIA Organization [facility] Address [address] [place] [address] Care Team Providers Care Hearing Aid Specialist Name Role Phone JOSSYHarriet RADHA Unavailable PROBLEMS Type Condition ICD9-CM Code MRL16-OL Code Onset Dates Condition S tatus SNOMED Code Problem Hypertension I10 Active 6534024 3 Problem Bipolar II disorder F31.81 Active 75994575 Problem Arthritis M19.90 Active 9054722 Problem Migraine G43.909 Active 15061783 Problem Lumbago with sciatica, unspecified side M54.40 Active 625763263 Problem Other chronic pain G89.29 Active 8 0426502 Problem Anxiety F41.9 Active 82550329 Problem IV drug abuse F19.10 Active 559168 006 Problem Essential hypertension I10 Active 32599481 Problem Opioid use disorder, severe, in early remission, dependenc e F11.21 Active 745225104 Problem Benzodiazepine dependence F13.20 Acti ve 585901579 Problem Moderate episode of recurrent major depressive disorder F33.1 Active 525505954 Problem Affective disorder F39 Active 4 1780946 Problem Gastroesophageal reflux disease without esophagitis K21.9 Active 397537389 Problem Psoriasis L40.9 Active 4010265 ALLERGIES No Information ENCOUNTERS Encounter Location Date Diagnosis [facility] [address] [place], [place] [id number] [place] [address] Oct, Opioid use disorder, severe, in early re mission, dependence F11.21 ; Psoriasis L40.9 ; Lipoma of right upper extremity D17.21 and Abscess L02.91 [facility] [address] [place] [id number] [place] [address] Sep, Opioid use disorder, severe, in early re mission, dependence F11.21 and Benzodiazepine dependence F13.20 [facility] [id number] [place] [address] Sep, Opioid use disorder, severe, in early re mission, dependence F11.21 and Bipolar II disorder F31.81 [facility] [address] [address] Sep, Opioid use disorder, severe, in early re mission, dependence F11.21 [facility] [address] [address] Sep, Opioid use disorder, severe, in early re mission, dependence F11.21 and Bipolar II disorder F31.81 [facility] [address] [address] Sep, Opioid use disorder, severe, in early re mission, dependence F11.21 [place] [address] [address] Aug, Opioid use disorder, severe, in early re mission, dependence F11.21 and Bipolar II disorder F31.81 [place] [address] [address] Aug, Opioid use disorder, severe, in early re mission, dependence F11.21 [place] [address] [address] 14 Aug, 2019 Opioid use disorder, severe, in early re mission, dependence F11.21 [place] [address] [address] Aug, Opioid use disorder, severe, in early re mission, dependence F11.21 [facility] [address] [address] Jul, Opioid use disorder, severe, in early re mission, dependence F11.21 [place] [address] [address] Jul, Opioid use disorder, severe, in early re mission, dependence F11.21 [facility] [address] [address] Jul, Opioid use disorder, severe, in early re mission, dependence F11.21 [facility] [address] [id number] [place] [address] Jul, Opioid use disorder, severe, in early re mission, dependence F11.21 [facility] [address] [place] [address] Jul, Opioid use disorder, severe, in early re mission, dependence F11.21 [facility] [address] [address] Jul, Opioid use disorder, severe, in early re mission, dependence F11.21 [facility] [address] [address] Jul, Opioid use disorder, severe, in early re mission, dependence F11.21 [facility] [address] [address] Jul, Opioid use disorder, severe, in early re mission, dependence F11.21 [facility] [address] [address] Jul, [facility] [address] [address] Jul, [facility] [address] [address] Jun, Opioid use disorder, severe, in early re mission, dependence F11.21 [facility] [address] [address] Jun, Opioid use disorder, severe, in early re mission, dependence F11.21 [facility] [address] [address] 17 Jun, 2019 [facility] [address] [address] Jun, [facility] [address] [address] Jun, Bipolar II disorder F31.81 ; IV drug abu se F19.10 and Opioid use disorder, severe, in early remission, dependence F11.21 [facility] [address] [address] Jun, [facility] [address] [address] May, [facility] [address] [address] May, Bipolar II disorder F31.81 [facility] [address] [address] May, Bipolar II disorder F31.81 and Hypertens ion I10 [facility] [address] [address] Apr, [facility] [address] [place], [place] [id number] 57 February, IV drug abuse F19.10 ; Screen for STD (sexually transmitted disease) Z11.3 and Unprotected sex Z72.51 [facility] [address] [address] Dec, [facility] [address] [address] Jul, Moderate episode of recurrent major depr essive disorder F33.1 [facility] [address] [address] May, [facility] [address] [address] Apr, Moderate episode of recurrent major depr essive disorder F33.1 [facility] [address] [address] Apr, Moderate episode of recurrent major depr essive disorder F33.1 [facility] [address] [address] Apr, [facility] [address] [address] Apr, Moderate episode of recurrent major depr essive disorder F33.1 [facility] [address] [place] [address] Mar, [facility] [address] [address] 15 Mar, 2018 Moderate episode of recurrent major depr essive disorder F33.1 and Hypertension I10 [facility] [address] [address] 14 Mar, 2018 Bipolar II disorder F31.81 [facility] [address] [address] February, [facility] [address] [address] February, [facility] [address] [address] February, [facility] [address] [address] Dec, [facility] [address] [address] Nov, Psoriasis L40.9 [facility] [address] [address] Nov, [facility] [address] [address] Nov, Anxiety F41.9 [facility] [address] [address] Oct, [facility] [address] [address] Oct, [facility] [address] [address] Oct, [facility] [address] [address] Oct, [facility] [address] [address] Sep, [facility] [address] [address] Sep, [facility] [address] [facility] [id number] [place] [id number] Aug, Dental examination Z01.20 and Dental car ies K02.9 [facility] [id number] [place] [address] Aug, [facility] [address] [address] Jul, [facility] [address] [place] [address] Jul, [facility] [address] [address] Jul, Moderate episode of recurrent major depr essive disorder F33.1 [facility] [id number] [place] [address] Jun, Moderate episode of recurrent major depr essive disorder F33.1 and Anxiety F41.9 [facility] [id number] [place] [address] Jun, [facility] [address] [address] Jun, Anxiety F41.9 [facility] [address] [place] [address] Jun, Moderate episode of recurrent major depr essive disorder F33.1 [facility] [id number] [place] [address] Jun, [facility] [address] [address] May, Moderate episode of recurrent major depr essive disorder F33.1 [facility] [address] [facility] [id number] [address] [place] [address] May, [facility] [address] [id number] [place] [address] May, Encounter for well woman exam with nessa najera gynecological exam Z01.419 and Anxiety F41.9 [facility] [address] [address] Apr, [facility] [address] [address] Mar, Affective disorder F39 ; Benzodiazepine dependence F13.20 and High risk sexual behavior Z72.51 [facility] [address] [address] Jan, Dyspepsia R10.13 ; Gastroesophageal refl ux disease without esophagitis K21.9 and Affective disorder F39 [facility] [address] [address] Jan, Affective disorder F39 [place] [address] [address] Dec, Moderate episode of recurrent major depr essive disorder F33.1 [place] [address] [address] 14 Nov, 2016 Unspecified episodic mood disorder F39 a nd Essential hypertension I10 [place] [address] [address] 02 Nov, 2016 Affective disorder F39 ; Anxiety F41.9 a nd Unspecified episodic mood disorder F39 [facility] [address] [address] Oct, [facility] [address] [address] Oct, [facility] [address] [place], [place] [id number] 57 Sep, Dysuria R30.0 [facility] [address] [address] Sep, [facility] [address] [address] Aug, [facility] [address] [address] Aug, [facility] [address] [address] Jul, [facility] [address] [facility] [id number] [address] [address] Jul, Acute non-recurrent maxillar y sinusitis J01.00 and Dysuria R30.0 [facility] [id number] [place] [address] Jul, Affective disorder F39 ; Essential hyper tension I10 ; Lumbago with sciatica, unspecified side M54.40 ; Other chronic pain G89.29 and Acute vaginitis N76.0 [facility] [address] [address] Jun, [facility] [address] [address] Jun, [facility] [address] [address] Jun, [facility] [address] [facility] [id number] [address] [address] May, Anxiety F41.9 [facility] [address] [address] May, [facility] [address] [address] May, [facility] [address] [address] Apr, [facility] [address] [address] Apr, Affective disorder F39 [facility] [address] [address] Apr, [facility] [address] [address] Apr, Unspecified episodic mood disorder F39 [facility] [address] [address] Jan, Hypertension I10 [facility] [address] [address] 05 Jan, 2016 Benzodiazepine dependence F13.20 and Art hritis M19.90 [facility] [address] [address] Nov, [facility] [address] [address] Jul, Migraine G43.909 ; Hypertension I10 and Arthritis M19.90 [facility] [address] [address] Jun, [facility] [address] [address] Jun, [facility] [address] [address] Jun, [facility] [address] [address] May, [facility] [address] [address] Jan, [facility] [address] [address] Jan, [facility] [address] [address] Nov, [facility] [address] [address] Nov, [facility] [address] [address] Oct, [facility] [address] [address] Oct, [facility] [address] [address] Oct, [facility] [address] [address] Oct, [facility] [address] [address] Aug, [facility] [place] [facility] [address] [id number] [place] [address] Aug, [facility] [place] [facility] [address] [facility] [id number] [place] [address] Aug, [facility] [place] [facility] [address] [id number] [place] [address] Aug, [facility] [place] [facility] [address] [id number] [place] [address] Aug, [facility] [place] [facility] [address] [facility] [id number] [place] [address] Aug, [facility] [place] [facility] [address] [id number] [place] [address] Aug, [facility] [place] [facility] [address] [id number] [place] [address] May, [facility] [place] [facility] [address] [id number] [place] [address] May, [facility] [place] [facility] [address] [id number] [place] [address] May, [facility] [place] [facility] [address] [id number] [place] [address] May, [facility] [place] [facility] [address] [id number] [place] [address] May, [facility] [place] [facility] [address] [id number] [place] [address] Apr, [facility] [place] [facility] [address] [id number] [place] [address] Apr, [facility] [place] [facility] [address] [id number] [place] [address] Apr, [facility] [place] [facility] [address] [id number] [place] [address] Apr, [facility] [place] [facility] [address] [id number] [place] [address] Apr, [facility] [place] [facility] [address] [id number] [place] [address] Apr, [facility] [place] [facility] [address] [facility] [id number] [place] [address] Apr, [facility] [place] [facility] [address] [facility] [id number] [place] [address] Apr, [facility] [place] [facility] [address] [id number] [place] [address] Mar, [facility] [place] [facility] [address] [facility] [id number] [place] [address] Mar, [facility] [place] [facility] [address] [facility] [id number] [place] [address] Mar, [facility] [place] [facility] [address] [id number] [place] [address] Mar, [facility] [place] [facility] [address] [id number] [place] [address] Mar, [facility] [place] [facility] [address] [id number] [place] [address] Mar, [facility] [place] [facility] [address] [id number] [place] [address] Mar, [facility] [place] [facility] [address] [id number] [place] [address] February, [facility] [place] [facility] [address] [id number] [place] [address] February, [facility] [place] [facility] [address] [id number] [place] [address] Jan, [facility] [place] [facility] [address] [facility] [id number] [place] [address] Jan, [facility] [place] [facility] [address] [id number] [place] [address] Jan, [facility] [place] [facility] [address] [id number] [place] [address] Jan, [facility] [place] [facility] [address] [id number] [place] [address] Jan, [facility] [place] [facility] [address] [id number] [place] [address] Jan, [facility] [place] [facility] [address] [id number] [place] [address] Dec, [facility] [place] [facility] [address] [id number] [place] [address] Dec, [facility] [place] [facility] [address] [id number] [place] [address] Dec, [facility] [place] [facility] [address] [id number] [place] [address] Nov, [facility] [place] [facility] [address] [id number] [place] [address] Nov, [facility] [place] [facility] [address] [id number] [place] [address] Nov, [facility] [place] [facility] [address] [id number] [place] [address] Nov, [facility] [place] [facility] [address] [id number] [place] [address] Oct, [facility] [place] [facility] [address] [id number] [place] [address] Oct, [facility] [place] [facility] [address] [id number] [place] [address] Oct, [facility] [place] [facility] [address] [id number] [place] [address] Oct, [facility] [place] [facility] [address] [id number] [place] [address] Oct, [facility] [place] [facility] [address] [id number] [place] [address] Oct, [facility] [place] [facility] [id number] [place] [address] Sep, [facility] [place] [facility] [address] [id number] [place] [address] Sep, [facility] [place] [facility] [address] [id number] [place] [address] Aug, [facility] [place] [facility] [address] [id number] [place] [address] Aug, [facility] [place] [facility] [address] [id number] [place] [address] Aug, [facility] [place] [facility] [address] [id number] [place] [address] Aug, [facility] [place] [facility] [address] [id number] [place] [address] Jul, [facility] [place] [facility] [address] [facility] [id number] [place] [address] Jul, [facility] [place] [facility] [address] [id number] [place] [address] Jul, [facility] [place] [facility] [address] [id number] [place] [address] Jul, [facility] [place] [facility] [address] [id number] [place] [address] Jul, [facility] [place] [facility] [address] [id number] [place] [address] Apr, [facility] [place] [facility] [address] [id number] [place] [address] Apr, [facility] [place] [facility] [address] [id number] [place] [address] Mar, [facility] [place] [facility] [address] [id number] [place] [address] Mar, [facility] [place] [facility] [address] [id number] [place] [address] February, [facility] [place] [facility] [address] [id number] [place] [address] Dec, [facility] [place] [facility] [address] [id number] [place] [address] Dec, [facility] [place] [facility] [address] [id number] [place] [address] Dec, [facility] [place] [facility] [address] [id number] [place] [address] Oct, [facility] [place] [facility] [address] [id number] [place] [address] Oct, [facility] [place] [facility] [address] [id number] [place] [address] Sep, [facility] [place] [facility] [address] [id number] [place] [address] Aug, [facility] [place] [facility] [address] [id number] [place] [address] Aug, [facility] [place] [facility] [address] [id number] [place] [address] Aug, [facility] [place] [facility] [address] [id number] [place] [address] Aug, [facility] [place] [facility] [address] [id number] [place] [address] Aug, [facility] [place] [facility] [address] [id number] [place] [address] Aug, [facility] [place] [facility] [address] [id number] [place] [address] Aug, [facility] [place] [facility] [address] [id number] [place] [address] Jul, [facility] [place] [facility] [address] [id number] [place] [address] Jul, [facility] [place] [facility] [address] [id number] [place] [address] Jul, [facility] [place] [facility] [address] [id number] [place] [address] Jun, [facility] [place] [facility] [address] [id number] [place] [address] Apr, [facility] [place] [facility] [address] [id number] [place] [address] Apr, [facility] [place] [facility] [address] [id number] [place] [address] Apr, [facility] [place] [facility] [address] [id number] [place] [address] 11 Mar, 2012 [facility] [place] [facility] [address] [id number] [place] [address] 07 Mar, 2012 [facility] [place] [facility] [address] [id number] [place] [address] 20 Jan, 2012 [facility] [place] [facility] [address] [id number] [place] [address] Dec, [facility] [place] [facility] [address] [id number] [place] [address] 15 May, 2011 [facility] [place] [id number] [place] [address] Sep, [facility] [id number] [place] [address] 16 Sep, 2010 [facility] [id number] [place] [address] Aug, [facility] [id number] [place] [address] Jul, [facility] [id number] [place] [address] Jul, [facility] [id number] [place] [address] 15 Apr, 2010 [facility] [id number] [place] [address] Jan, [facility] [id number] [place] [address] Aug, [facility] [id number] [place] [address] Aug, [facility] [address] [id number] [place] [address] Aug, [facility] [address] [id number] [place] [address] Aug, [facility] [id number] [place] [address] Jul, [facility] [id number] [place] [address] May, [facility] [id number] [place] [address] Apr, [facility] [id number] [place] [address] February, [facility] [id number] [place] [address] Dec, IMMUNIZATIONS No Known Immunizations SOCIAL HISTORY [...] stones 2013 Hospitalization History Suicidal ideation/intentional overdo [facility] 03/16/18 Hospitalization History Behavorial hospitalization [facility] 03/2018
[2020-02-24 12:26] LABS: CARBON DIOXIDE 19 MMOL/L (21-32)
--- OUTSIDE RECORDS SUMMARY | 2020-02-24 12:26 | XMS REPORT ---
Author Author Reena SHAFFER Organization [facility] Address [address] [place] [address] Care Team Providers Care Certified Nurse Aide Name Role Phone DEONDRE SHAFFER Unavailable PROBLEMS Type Condition ICD9-CM Code [id number] Code Onset Dates Condition S tatus SNOMED Code Problem Hypertension I10 Active 2739070 3 Problem Bipolar II disorder F31.81 Active 22425340 Problem Arthritis M19.90 Active 3088616 Problem Migraine G43.909 Active 46554789 Problem Lumbago with sciatica, unspecified side M54.40 Active 911735454 Problem Other chronic pain G89.29 Active 8 4185892 Problem Anxiety F41.9 Active 11074292 Problem IV drug abuse F19.10 Active 668611 006 Problem Essential hypertension I10 Active 76868702 Problem Opioid use disorder, severe, in early remission, dependenc e F11.21 Active 685325354 Problem Benzodiazepine dependence F13.20 Acti ve 475952659 Problem Moderate episode of recurrent major depressive disorder F33.1 Active 539629563 Problem Affective disorder F39 Active 4 5796591 Problem Gastroesophageal reflux disease without esophagitis K21.9 Active 849767466 Problem Psoriasis L40.9 Active 5219010 ALLERGIES No Information ENCOUNTERS Encounter Location Date Diagnosis [facility] [address] [facility]NOTE [facility]] [id number] [address] [place] [phone] Jun, [facility] [address] [facility]NOTE [facility]] [id number] [address] [place] [phone] Jun, [facility] [address] [facility]NOTE [facility]] [id number] [address] [place] [phone] Jun, [facility] [address] [facility]NOTE [facility]] [id number] [address] [place] [phone] Jun, Bipolar II disorder F31.81 ; IV drug abuse F19.10 and Opioid use disorder, severe, in early remission, dependence F11.21 [facility] [address] [id number] [address] [place] [phone] Jun, [facility] [address] [facility]] [id number] [address] [place] [phone] May, [facility] [address] [facility]] [id number] [address] [place] [phone] May, Bipolar II disorder F31.81 [facility] [address] [facility]] [id number] [address] [place] [id number] May, Bipolar II disorder F31.81 a nd Hypertension I10 [facility] [address] [facility]NOTE 3] [id number] [address] [place] [phone] Apr, [facility] [address] [place], [place] [id number] 57 February, IV drug abuse F19.10 ; Screen for STD (sexually transmitted disease) Z11.3 and Unprotected sex Z72.51 [facility] [address] [facility]] [id number] [address] [place] [phone] Dec, [facility] [address] [facility]NOTE [facility]] [id number] [address] [place] [phone] Jul, Moderate episode of recurren t major depressive disorder F33.1 [facility] [address] [facility]] [id number] [address] [place] [phone] May, [facility] [address] [facility] 3] [id number] [address] [place] [phone] Apr, Moderate episode of recurren t major depressive disorder F33.1 [facility] [address] [id number] [address] [place] [id number] Apr, Moderate episode of recurren t major depressive disorder F33.1 [facility] [address] [facility]] [id number] [address] [place] [id number] Apr, [facility] [address] [facility] 3] [id number] [address] [place] [phone] Apr, Moderate episode of recurren t major depressive disorder F33.1 [facility] [address] [id number] [address] [place] [phone] Mar, [facility] [address] [id number] [address] [place] [phone] Mar, Moderate episode of recurren t major depressive disorder F33.1 and Hypertension I10 [facility] [address] [id number] [address] [place] [phone] Mar, Bipolar II disorder F31.81 [facility] [address] [id number] [address] [place] [phone] February, [facility] [address] [id number] [address] [place] [phone] February, [facility] [address] [id number] [address] [place] [phone] February, [facility] [address] [id number] [address] [place] [phone] Dec, [facility] [address] [id number] [address] [place] [phone] Nov, Psoriasis L40.9 [facility] [address] [id number] [address] [place] [phone] Nov, [facility] [address] [id number] [address] [place] [phone] Nov, Anxiety F41.9 [facility] [address] [id number] [address] [place] [phone] Oct, [facility] [address] [id number] [address] [place] [phone] Oct, [facility] [address] [id number] [address] [place] [phone] Oct, [facility] [address] [id number] [address] [place] [phone] Oct, [facility] [address] [id number] [address] [place] [phone] Sep, [facility] [address] [id number] [address] [place] [phone] Sep, [facility] [address] [id number] [address] [place] [id number] Aug, Dental examination Z01.20 an d Dental caries K02.9 [facility] [address] [id number] [address] [place] [phone] Aug, [facility] [address] [id number] [address] [place] [phone] Jul, [facility] [address] [id number] [address] [place] [phone] Jul, [facility] [address] [id number] [address] [place] [phone] Jul, Moderate episode of recurren t major depressive disorder F33.1 [facility] [address] [id number] [address] [place] [phone] Jun, Moderate episode of recurren t major depressive disorder F33.1 and Anxiety F41.9 [facility] [address] [id number] [address] [place] [phone] Jun, [facility] [address] [id number] [address] [place] [phone] Jun, Anxiety F41.9 [facility] [address] [id number] [address] [place] [phone] Jun, Moderate episode of recurren t major depressive disorder F33.1 [facility] [address] [id number] [address] [place] [phone] Jun, [facility] [address] [id number] [address] [place] [phone] May, Moderate episode of recurren t major depressive disorder F33.1 [facility] [id number] [place] [phone] May, [place] [address] [address] May, Encounter for well woman exgio bowman with routine gynecological exam Z01.419 and Anxiety F41.9 [facility] [address] [id number] Apr, [place] [address] [address] Mar, Affective disorder F39 ; Edenilson zodiazepine dependence F13.20 and High risk sexual behavior Z72.51 [place] [address] [id number] 17 Jan, 2017 Dyspepsia R10.13 ; Gastroeso phageal reflux disease without esophagitis K21.9 and Affective disorder F39 [place] [address] [id number] 03 Jan, 2017 Affective disorder F39 [place] [address] [address] 10 Dec, 2016 Moderate episode of recurren t major depressive disorder F33.1 [place] [address] [id number] 14 Nov, 2016 Unspecified episodic mood di sorder F39 and Essential hypertension I10 [place] [address] [place] [id number] [address] [place] [id number] 02 Nov, 2016 Affective disorder F39 ; Anx iety F41.9 and Unspecified episodic mood disorder F39 [place] [address] [place] [id number] [address] [place] [phone] Oct, [place] [address] [id number] Oct, [facility] [address] [place], [place] [id number] 57 Sep, Dysuria R30.0 [place] [address] [id number] [address] [place] [phone] Sep, [facility] [address] [facility]] [id number] [address] [place] [phone] Aug, [facility] [address] [facility] 3] [id number] [address] [place] [phone] Aug, [facility] [address] [facility]] [id number] [address] [place] [phone] Jul, [facility] [address] [id number] [address] [place] [phone] Jul, Acute non-recurrent maxillar y sinusitis J01.00 and Dysuria R30.0 [facility] [address] [facility]] [id number] [address] [place] [phone] Jul, Affective disorder F39 ; Ess ential hypertension I10 ; Lumbago with sciatica, unspecified side M54.40 ; Other chronic pain G89.29 and Acute vaginitis N76.0 [facility] [address] [facility]] [id number] [address] [place] [phone] Jun, [facility] [address] [id number] [address] [place] [phone] Jun, [facility] [address] [facility]] [id number] [address] [place] [phone] Jun, [facility] [address] [id number] [address] [place] [phone] May, Anxiety F41.9 [facility] [address] [facility]] [id number] [address] [place] [phone] May, [facility] [address] [facility] 3] [id number] [address] [place] [phone] May, [facility] [address] [facility]] [id number] [address] [place] [phone] Apr, [facility] [address] [facility]] [id number] [address] [place] [phone] Apr, Affective disorder F39 [facility] [address] [facility]] [id number] [address] [place] [phone] Apr, [facility] [address] [facility]] [id number] [address] [place] [phone] Apr, Unspecified episodic mood di sorder F39 [facility] [address] [facility] 3] [id number] [address] [place] [phone] Jan, Hypertension I10 [facility] [address] [facility]] [id number] [address] [place] [phone] Jan, Benzodiazepine dependence F1 3.20 and Arthritis M19.90 [facility] [address] [facility]] [id number] [address] [place] [phone] Nov, [facility] [address] [address] Jul, Migraine G43.909 ; Hypertens ion I10 and Arthritis M19.90 [facility] [address] [facility]] [id number] [address] [place] [phone] Jun, [facility] [address] [facility]] [id number] [address] [place] [phone] Jun, [facility] [address] [place] [id number] [address] [place] [phone] Jun, [facility] [address] [facility]] [id number] [address] [place] [phone] May, [facility] [address] [facility]] [id number] [address] [place] [phone] Jan, [facility] [address] [facility]] [id number] [address] [place] [phone] Jan, [facility] [address] [facility]] [id number] [address] [place] [phone] Nov, [facility] [address] [facility]] [id number] [address] [place] [phone] Nov, [facility] [address] [id number] [address] [place] [address], [place] [address] Oct, [facility] [address] [id number] [address] [place] [address], [place] [address] Oct, [facility] [address] [id number] [address] [place] [address], [place] [address] Oct, [facility] [address] [id number] [address] [place] [address], [place] [address] Oct, [facility] [address] [id number] [address] [place] [address], [place] [address] Aug, [facility] [address] [id number] [address] [place] [address], [place] [address] Aug, [facility] [address] [id number] [address] [place] [address], [place] [address] Aug, [facility] [address] [id number] [address] [place] [address], [place] [address] Aug, [facility] [address] [id number] [address] [place] [address], [place] [address] Aug, [facility] [address] [id number] [address] [place] [address], [place] [address] Aug, [facility] [address] [id number] [address] [place] [address], [place] [address] Aug, [facility] [address] [id number] [address] [place] [address], [place] [address] May, [facility] [address] [id number] [address] [place] [address], [place] [address] May, [facility] [address] [id number] [address] [place] [address], [place] [address] May, [facility] [address] [id number] [address] [place] [address], [place] [address] May, [facility] [address] [id number] [address] [place] [address], [place] [address] May, [facility] [address] [id number] [address] [place] [address], [place] [address] Apr, [facility] [address] [id number] [address] [place] [address], [place] [address] Apr, [facility] [address] [id number] [address] [place] [address], [place] [address] Apr, [facility] [address] [id number] [address] [place] [address], [place] [address] Apr, [facility] [address] [id number] [address] [place] [address], [place] [address] Apr, [facility] [address] [id number] [address] [place] [address], [place] [address] Apr, [facility] [address] [id number] [address] [place] [address], [place] [address] Apr, [facility] [address] [id number] [address] [place] [address], [place] [address] Apr, [facility] [address] [id number] [address] [place] [address], [place] [address] Mar, [facility] [address] [id number] [address] [place] [address], [place] [address] Mar, [facility] [address] [id number] [address] [place] [address], [place] [address] Mar, [facility] [address] [id number] [address] [place] [address], [place] [address] Mar, [facility] [address] [id number] [address] [place] [address], [place] [address] Mar, [facility] [address] [id number] [address] [place] [address], [place] [address] Mar, [facility] [address] [id number] [address] [place] [address], [place] [address] Mar, [facility] [address] [id number] [facility] [place] [address] February, [facility] [address] [id number] [address] [place] [address], [place] [address] February, [facility] [address] [id number] [address] [place] [address], [place] [address] Jan, [facility] [address] [id number] [address] [place] [address], [place] [address] Jan, [facility] [address] [id number] [address] [place] [address], [place] [address] Jan, [facility] [address] [id number] [address] [place] [address], [place] [address] Jan, [facility] [address] [id number] [address] [place] [address], [place] [address] Jan, [facility] [address] [id number] [address] [place] [address], [place] [address] Jan, [facility] [address] [id number] [address] [place] [address], [place] [address] Dec, [facility] [address] [id number] [address] [place] [address], [place] [address] Dec, [facility] [address] [id number] [address] [place] [address], [place] [address] Dec, [facility] [address] [id number] [address] [place] [address], [place] [address] Nov, [facility] [address] [id number] [address] [place] [address], [place] [address] Nov, [facility] [address] [id number] [address] [place] [address], [place] [address] Nov, [facility] [address] [id number] [address] [place] [address], [place] [address] Nov, [facility] [address] [id number] [address] [place] [address], [place] [address] Oct, [facility] [address] [id number] [address] [place] [address], [place] [address] Oct, [facility] [address] [id number] [address] [place] [address], [place] [address] Oct, [facility] [address] [id number] [address] [place] [address], [place] [address] Oct, [facility] [address] [id number] [address] [place] [address], [place] [address] Oct, [facility] [address] [id number] [address] [place] [address], [place] [address] Oct, [facility] [address] [id number] [address] [place] [address], [place] [address] Sep, [facility] [address] [id number] [address] [place] [address], [place] [id number] Sep, [facility] [address] [id number] [address] [place] [address], [place] [id number] Aug, [facility] [address] [id number] [address] [place] [address], [place] [id number] Aug, [facility] [address] [id number] [address] [place] [address], [place] [id number] Aug, [facility] [address] [id number] [address] [place] [address], [place] [id number] Aug, [facility] [address] [id number] [address] [place] [id number] Jul, [facility] [address] [id number] [address] [place] [address], [place] [id number] Jul, [facility] [address] [id number] [address] [place] [address], [place] [id number] Jul, [facility] [address] [id number] [address] [place] [id number] Jul, [facility] [address] [id number] [address] [place] [address], [place] [id number] Jul, [facility] [address] [id number] [address] [place] [address], [place] [id number] Apr, [facility] [address] [id number] [address] [place] [address], [place] [id number] Apr, [facility] [address] [id number] [address] [place] [address], [place] [id number] Mar, [facility] [address] [id number] [address] [place] [address], [place] [id number] Mar, [facility] [address] [id number] [address] [place] [address], [place] [id number] February, [facility] [address] [id number] [address] [place] [address], [place] [id number] Dec, [facility] [address] [id number] [address] [place] [address], [place] [id number] Dec, [facility] [address] [id number] [address] [place] [address], [place] [id number] Dec, [facility] [address] [id number] [address] [place] [address], [place] [id number] Oct, [facility] [address] [id number] [address] [place] [address], [place] [id number] Oct, [facility] [address] [id number] [address] [place] [address], [place] [id number] Sep, [facility] [address] [id number] [address] [place] [address], [place] [id number] Aug, [facility] [address] [id number] [address] [place] [address], [place] [id number] Aug, [facility] [address] [id number] [address] [place] [address], [place] [id number] Aug, [facility] [address] [id number] [address] [place] [address], [place] [id number] Aug, [facility] [address] [id number] [address] [place] [address], [place] [id number] Aug, [facility] [address] [id number] [address] [place] [address], [place] [id number] Aug, [facility] [address] [id number] [address] [place] [address], [place] [id number] Aug, [facility] [address] [id number] [address] [place] [address], [place] [id number] Jul, [facility] [address] [id number] [address] [place] [address], [place] [id number] Jul, [facility] [address] [id number] [address] [place] [address], [place] [id number] Jul, [facility] [address] [id number] [address] [place] [address], [place] [id number] Jun, [facility] [address] [id number] [address] [place] [address], [place] [id number] Apr, [facility] [address] [id number] [address] [place] [address], [place] [id number] Apr, [facility] [address] [id number] [address] [place] [address], [place] [id number] Apr, [facility] [address] [id number] [address] [place] [address], [place] [id number] Mar, [facility] [address] [id number] [address] [place] [id number] Mar, [facility] [address] [id number] [address] [place] [address], [place] [id number] Jan, [facility] [address] [id number] [address] [place] [address], [place] [id number] Dec, [facility] [address] [id number] [address] [place] [address], [place] [id number] May, [facility] [address] [id number] [address] [place] [address], [place] [id number] 21 Sep, 2010 [facility] [address] [id number] [address] [place] [address], [place] [id number] 16 Sep, 2010 [facility] [address] [id number] [address] [place] [address], [place] [id number] 18 Aug, 2010 [facility] [address] [id number] [address] [place] [address], [place] [id number] Jul, [facility] [address] [id number] [address] [place] [address], [place] [id number] 11 Jul, 2010 [facility] [address] [id number] [address] [place] [address], [place] [id number] 15 Apr, 2010 [facility] [address] [id number] [address] [place] [address], [place] [id number] Jan, [facility] [address] [id number] [address] [place] [address], [place] [id number] Aug, [facility] [address] [id number] [address] [place] [id number] Aug, [facility] [address] [id number] [address] [place] [address], [place] [id number] Aug, [facility] [address] [id number] [address] [place] [id number] Aug, [facility] [address] [id number] [address] [place] [address], [place] [id number] Jul, [facility] [address] [id number] [address] [place] [id number] May, [facility] [address] [id number] [address] [place] [id number] 15 Apr, 2009 [facility] [address] [id number] [address] [place] [id number] February, [facility] [address] [id number] [address] [place] [id number] Dec, IMMUNIZATIONS No Known Immunizations SOCIAL HISTORY [...] stones 2013 Hospitalization History Suicidal ideation/intentional overdo [facility] 03/16/18 Hospitalization History [facility] hospitalization [facility] 03/2018
--- OUTSIDE RECORDS SUMMARY | 2020-02-24 12:26 | XMS REPORT ---
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 Name Role Phone DEONDRE SHAFFER Unavailable PROBLEMS Type Condition ICD9-CM Code [id number] Code Onset Dates Condition S tatus SNOMED Code Problem Bipolar II disorder F31.81 Active 63606721 Problem Migraine G43.909 Active 12003255 Problem Hypertension I10 Active 3809109 3 Problem Essential hypertension I10 Active 70990596 Problem Lumbago with sciatica, unspecified side M54.40 Active 400608079 Problem Other chronic pain G89.29 Active 8 1270743 Problem Psoriasis L40.9 Active 3600778 Problem Benzodiazepine dependence F13.20 Acti ve 991620037 Problem IV drug abuse F19.10 Active 896164 006 Problem Arthritis M19.90 Active 3740324 Problem Anxiety F41.9 Active 27680827 Problem Moderate episode of recurrent major depressive disorder F33.1 Active 421406509 Problem Affective disorder F39 Active 4 2478870 Problem Gastroesophageal reflux disease without esophagitis K21.9 Active [id number] ALLERGIES No Information ENCOUNTERS Encounter Location Date Diagnosis [facility] [address] [facility] [id number] [address] [place] [phone] Jun, [facility] [address] [facility] [id number] [address] [place] [phone] May, [facility] [address] [facility] [id number] [address] [place] [address] May, Bipolar II disorder F31.81 [facility] [address] [facility] [id number] [address] [place] [address] May, Bipolar II disorder F31.81 a nd Hypertension I10 [facility] [address] [facility] [id number] [address] [place] [address] Apr, [facility] [address] [place] [id number] February, IV drug abuse F19.10 ; Screen for STD (sexually transmitted disease) Z11.3 and Unprotected sex Z72.51 [facility] [address] [id number] [address] [place] [phone] Dec, [facility] [address] [id number] [address] [place] [phone] Jul, Moderate episode of recurren t major depressive disorder F33.1 [facility] [address] [id number] [address] [place] [phone] May, [facility] [address] [id number] [address] [place] [phone] Apr, Moderate episode of recurren t major depressive disorder F33.1 [facility] [address] [id number] [address] [place] [address] Apr, Moderate episode of recurren t major depressive disorder F33.1 [facility] [address] [id number] [address] [place] [address] Apr, [facility] [address] [id number] [address] [place] [address] Apr, Moderate episode of recurren t major depressive disorder F33.1 [facility] [address] [id number] [address] [place] [phone] Mar, [facility] [address] [id number] [address] [place] [phone] Mar, Moderate episode of recurren t major depressive disorder F33.1 and Hypertension I10 [facility] [address] [id number] [address] [place] [phone] 14 Mar, 2018 Bipolar II disorder F31.81 [facility] [address] [id number] [address] [place] [phone] February, [facility] [address] [id number] [address] [place] [phone] February, [facility] [address] [id number] [address] [place] [phone] February, [facility] [address] [id number] [address] [place] [address] Dec, [facility] [address] [id number] [address] [place] [phone] Nov, Psoriasis L40.9 [facility] [address] [id number] [address] [place] [phone] Nov, [facility] [address] [id number] [address] [place] [phone] Nov, Anxiety F41.9 [facility] [address] [id number] [address] [place] [phone] Oct, [facility] [address] [id number] [address] [place] [address] Oct, [facility] [address] [id number] [address] [place] [phone] Oct, [facility] [address] [id number] [address] [place] [id number] Oct, [facility] [address] [id number] [address] [place] [address] Sep, [facility] [address] [id number] [address] [place] [address] Sep, [facility] [address] [id number] [address] [place] [id number] Aug, Dental examination Z01.20 an d Dental caries K02.9 [facility] [address] [id number] [address] [place] [address] Aug, [facility] [address] [id number] [address] [place] [phone] Jul, [facility] [address] [id number] [address] [place] [address] Jul, [facility] [address] [id number] [address] [place] [phone] Jul, Moderate episode of recurren t major depressive disorder F33.1 [facility] [address] [id number] [address] [place] [phone] 18 Jun, 2017 Moderate episode of recurren t major depressive disorder F33.1 and Anxiety F41.9 [facility] [address] [id number] [address] [place] [id number] 14 Jun, 2017 [facility] [address] [id number] [address] [place] [address] Jun, Anxiety F41.9 [facility] [address] [id number] [address] [place] [phone] Jun, Moderate episode of recurren t major depressive disorder F33.1 [facility] [address] [id number] [address] [place] [phone] Jun, [facility] [address] [id number] [address] [place] [address] May, Moderate episode of recurren t major depressive disorder F33.1 [facility] [address] [id number] [address] [place] [phone] May, [facility] [address] [id number] [address] [place] [address] May, Encounter for well woman exa m with routine gynecological exam Z01.419 and Anxiety F41.9 [facility] [address] [id number] [address] [place] [phone] Apr, [facility] [address] [facility] [id number] [address] [place] [phone] Mar, Affective disorder F39 ; Edenilson zodiazepine dependence F13.20 and High risk sexual behavior Z72.51 [facility] [address] [id number] [address] [place] [phone] 17 Jan, 2017 Dyspepsia R10.13 ; Gastroeso phageal reflux disease without esophagitis K21.9 and Affective disorder F39 [facility] [address] [facility] [id number] [address] [place] [address] Jan, Affective disorder F39 [facility] [address] [place] [id number] [address] [place] [phone] Dec, Moderate episode of recurren t major depressive disorder F33.1 [facility] [address] [facility] [id number] [address] [place] [phone] 14 Nov, 2016 Unspecified episodic mood di sorder F39 and Essential hypertension I10 [place] [address] [facility] [id number] [address] [place] [phone] 02 Nov, 2016 Affective disorder F39 ; Anx iety F41.9 and Unspecified episodic mood disorder F39 [facility] [address] [place] [id number] [address] [place] [phone] Oct, [facility] [address] [place] [id number] [address] [place] [phone] Oct, [facility] [address] [place], [place] [id number] Sep, Dysuria R30.0 [facility] [address] [place] [id number] [address] [place] [phone] Sep, [facility] [id number] [place] [address] Aug, [facility] [address] [facility] [id number] [address] [place] [phone] Aug, [facility] [address] [place] [id number] [address] [place] [phone] Jul, [facility] [address] [facility] [id number] [address] [place] [phone] Jul, Acute non-recurrent maxillar y sinusitis J01.00 and Dysuria R30.0 [facility] [address] [place] [id number] [address] [place] [address] Jul, Affective disorder F39 ; Ess ential hypertension I10 ; Lumbago with sciatica, unspecified side M54.40 ; Other chronic pain G89.29 and Acute vaginitis N76.0 [facility] [address] [facility] [id number] [address] [place] [phone] Jun, [facility] [address] [facility] [id number] [address] [place] [phone] Jun, [facility] [address] [facility] [id number] [address] [place] [address] Jun, [facility] [address] [facility] [id number] [address] [place] [phone] May, Anxiety F41.9 [facility] [address] [facility] [id number] [address] [place] [phone] May, [facility] [address] [facility] [id number] [address] [place] [phone] May, [facility] [address] [facility] [id number] [address] [place] [address] Apr, [facility] [address] [facility] [id number] [address] [place] [phone] Apr, Affective disorder F39 [facility] [address] [facility] [id number] [address] [place] [address] Apr, [facility] [address] [facility] [id number] [address] [place] [address] Apr, Unspecified episodic mood di sorder F39 [facility] [address] [facility] [id number] [address] [place] [address] Jan, Hypertension I10 [facility] [address] [facility] [id number] [address] [place] [address] Jan, Benzodiazepine dependence F1 3.20 and Arthritis M19.90 [facility] [address] [id number] [address] [place] [phone] Nov, [facility] [address] [id number] [address] [place] [address] Jul, Migraine G43.909 ; Hypertens ion I10 and Arthritis M19.90 [facility] [address] [id number] [address] [place] [address], [place] [address] Jun, [facility] [address] [id number] [address] [place] [phone] Jun, [facility] [address] [id number] [address] [place] [address], [place] [address] Jun, [facility] [address] [id number] [address] [place] [phone] May, [facility] [address] [id number] [address] [place] [phone] Jan, [facility] [address] [id number] [address] [place] [phone] Jan, [facility] [address] [id number] [address] [place] [address], [place] [address] Nov, [facility] [address] [id number] [address] [place] [phone] Nov, [facility] [address] [id number] [address] [place] [phone] Oct, [facility] [address] [id number] [address] [place] [id number] Oct, [facility] [address] [id number] [address] [place] [phone] Oct, [facility] [address] [id number] [address] [place] [phone] Oct, [facility] [address] [id number] [address] [place] [phone] Aug, [facility] [address] [id number] [facility] [place] [address] Aug, [facility] [address] [id number] [address] [place] [address], [place] [address] Aug, [facility] [address] [id number] [address] [place] [address], [place] [address] Aug, [facility] [address] [id number] [address] [place] [address], [place] [address] Aug, [facility] [address] [id number] [address] [place] [address], [place] [address] Aug, [facility] [address] [id number] [address] [place] [address], [place] [address] Aug, [facility] [address] [id number] [address] [place] [address], [place] [address] May, [facility] [address] [id number] [address] [place] [address], [place] [address] May, [facility] [address] [id number] [address] [place] [address], [place] [address] May, [facility] [address] [id number] [address] [place] [address], [place] [address] May, [facility] [address] [id number] [address] [place] [address], [place] [address] May, [facility] [address] [id number] [address] [place] [address], [place] [address] Apr, [facility] [address] [id number] [address] [place] [address], [place] [address] Apr, [facility] [address] [id number] [address] [place] [address], [place] [address] Apr, [facility] [address] [id number] [address] [place] [address], [place] [address] Apr, [facility] [address] [id number] [address] [place] [address], [place] [address] Apr, [facility] [address] [id number] [facility] [place] [address] Apr, [facility] [address] [id number] [facility] [place] [address] Apr, [facility] [address] [id number] [facility] [place] [address] Apr, [facility] [address] [id number] [address] [place] [address], [place] [address] Mar, [facility] [address] [id number] [address] [place] [address], [place] [address] Mar, [facility] [address] [id number] [address] [place] [address], [place] [address] Mar, [facility] [address] [id number] [address] [place] [address], [place] [address] Mar, [facility] [address] [id number] [address] [place] [address], [place] [address] Mar, [facility] [address] [id number] [address] [place] [address], [place] [address] Mar, [facility] [address] [id number] [address] [place] [address], [place] [address] Mar, [facility] [address] [id number] [address] [place] [address], [place] [address] February, [facility] [address] [id number] [address] [place] [address], [place] [address] February, [facility] [address] [id number] [address] [place] [address], [place] [address] Jan, [facility] [address] [id number] [address] [place] [address], [place] [address] Jan, [facility] [address] [id number] [address] [place] [address], [place] [address] Jan, [facility] [address] [id number] [address] [place] [address], [place] [address] Jan, [facility] [address] [id number] [address] [place] [address], [place] [address] Jan, [facility] [address] [id number] [address] [place] [address], [place] [address] Jan, [facility] [address] [id number] [address] [place] [address], [place] [address] Dec, [facility] [address] [id number] [address] [place] [address], [place] [address] Dec, [facility] [address] [id number] [address] [place] [address], [place] [address] Dec, [facility] [address] [id number] [address] [place] [address], [place] [address] Nov, [facility] [address] [id number] [address] [place] [address], [place] [address] Nov, [facility] [address] [id number] [address] [place] [address], [place] [address] Nov, [facility] [address] [id number] [address] [place] [address], [place] [address] Nov, [facility] [address] [id number] [address] [place] [address], [place] [address] Oct, [facility] [address] [id number] [address] [place] [address], [place] [address] Oct, [facility] [address] [id number] [address] [place] [address], [place] [address] Oct, [facility] [address] [id number] [address] [place] [address], [place] [address] Oct, [facility] [address] [id number] [address] [place] [address], [place] [address] Oct, [facility] [address] [id number] [address] [place] [address], [place] [address] Oct, [facility] [address] [id number] [address] [place] [address], [place] [address] Sep, [facility] [address] [id number] [address] [place] [address], [place] [address] Sep, [facility] [address] [id number] [address] [place] [address], [place] [address] Aug, [facility] [address] [id number] [address] [place] [address], [place] [address] Aug, [facility] [address] [id number] [address] [place] [address], [place] [address] Aug, [facility] [address] [id number] [address] [place] [address], [place] [address] Aug, [facility] [address] [id number] [address] [place] [address], [place] [address] Jul, [facility] [address] [id number] [address] [place] [address], [place] [address] Jul, [facility] [address] [id number] [address] [place] [address], [place] [address] Jul, [facility] [address] [id number] [address] [place] [address], [place] [address] Jul, [facility] [address] [id number] [address] [place] [address], [place] [address] Jul, [facility] [address] [id number] [address] [place] [address], [place] [address] Apr, [facility] [address] [id number] [address] [place] [address], [place] [address] Apr, [facility] [address] [id number] [address] [place] [address], [place] [address] Mar, [facility] [address] [id number] [address] [place] [address], [place] [address] Mar, [facility] [address] [id number] [address] [place] [address], [place] [address] February, [facility] [address] [id number] [address] [place] [address], [place] [address] Dec, [facility] [address] [id number] [address] [place] [address], [place] [address] Dec, [facility] [address] [id number] [address] [place] [address], [place] [address] Dec, [facility] [address] [id number] [address] [place] [address], [place] [address] Oct, [facility] [address] [id number] [address] [place] [address], [place] [address] Oct, [facility] [address] [id number] [address] [place] [address], [place] [address] Sep, [facility] [address] [id number] [address] [place] [address], [place] [address] Aug, [facility] [address] [id number] [address] [place] [address], [place] [address] Aug, [facility] [address] [id number] [address] [place] [address], [place] [address] Aug, [facility] [address] [id number] [address] [place] [address], [place] [address] Aug, [facility] [address] [id number] [address] [place] [address], [place] [address] Aug, [facility] [address] [id number] [address] [place] [address], [place] [address] Aug, [facility] [address] [id number] [address] [place] [address], [place] [address] Aug, [facility] [address] [id number] [address] [place] [address], [place] [address] Jul, [facility] [address] [id number] [address] [place] [address], [place] [address] Jul, [facility] [address] [id number] [address] [place] [address], [place] [address] 09 Jul, 2012 [facility] [address] [id number] [address] [place] [address], [place] [address] Jun, [facility] [address] [id number] [address] [place] [address], [place] [address] Apr, [facility] [address] [id number] [address] [place] [address], [place] [address] 17 Apr, 2012 [facility] [address] [id number] [address] [place] [address], [place] [address] Apr, [facility] [address] [id number] [address] [place] [address], [place] [address] Mar, [facility] [address] [id number] [address] [place] [address], [place] [address] Mar, [facility] [address] [id number] [address] [place] [address], [place] [address] Jan, [facility] [address] [id number] [address] [place] [address], [place] [address] Dec, [facility] [address] [id number] [address] [place] [address], [place] [address] May, [facility] [address] [id number] [address] [place] [address], [place] [address] Sep, [facility] [address] [id number] [address] [place] [address], [place] [address] 16 Sep, 2010 [facility] [address] [id number] [address] [place] [address], [place] [address] 18 Aug, 2010 [facility] [address] [id number] [address] [place] [address], [place] [address] Jul, [facility] [address] [id number] [address] [place] [address], [place] [address] Jul, [facility] [address] [id number] [address] [place] [address], [place] [address] 15 Apr, 2010 [facility] [place] [address] [id number] [address] [place] [phone] Jan, [facility] [place] [address] [id number] [address] [place] [phone] Aug, [facility] [place] [address] [id number] [address] [place] [phone] Aug, [facility] [place] [address] [id number] [address] [place] [phone] Aug, [facility] [place] [address] [id number] [address] [place] [phone] Aug, [facility] [place] [address] [id number] [address] [place] [phone] Jul, [facility] [place] [address] [id number] [address] [place] [phone] May, [facility] [place] [address] [id number] [address] [place] [phone] Apr, [facility] [place] [address] [id number] [address] [place] [id number] February, [facility] [place] [address] [id number] [address] [place] [phone] Dec, IMMUNIZATIONS No Known Immunizations SOCIAL HISTORY [...] stones 2014 Hospitalization History Suicidal ideation/intentional overdo [facility] 03/16/18 Hospitalization History Behavorial hospitalization [facility] 03/2018
--- OUTSIDE RECORDS SUMMARY | 2020-02-24 12:26 | XMS REPORT ---
Author Author Reena SHAFFER Organization [facility] Address [address] [place] [address] Care Team Providers Care Sedimentationist Name Role Phone DEONDRE SHAFFER Unavailable PROBLEMS Type Condition ICD9-CM Code EUP16-XK Code Onset Dates Condition S tatus SNOMED Code Problem Bipolar II disorder F31.81 Active 74506060 Problem Migraine G43.909 Active 78631031 Problem Hypertension I10 Active 7231398 3 Problem Essential hypertension I10 Active 05528317 Problem Lumbago with sciatica, unspecified side M54.40 Active 597284831 Problem Other chronic pain G89.29 Active 8 7007821 Problem Psoriasis L40.9 Active 4316386 Problem Benzodiazepine dependence F13.20 Acti ve 408214131 Problem IV drug abuse F19.10 Active 609662 006 Problem Arthritis M19.90 Active 1573649 Problem Anxiety F41.9 Active 60359381 Problem Moderate episode of recurrent major depressive disorder F33.1 Active 564289140 Problem Affective disorder F39 Active 4 3139304 Problem Gastroesophageal reflux disease without esophagitis K21.9 Active 747331615 ALLERGIES No Information ENCOUNTERS Encounter Location Date Diagnosis [facility] [address] [facility] [id number] [address] [place] [address] May, [facility] [address] [facility] [id number] [address] [place] [address] May, Bipolar II disorder F31.81 [facility] [address] [facility] [id number] [address] [place] [address] May, Bipolar II disorder F31.81 a nd Hypertension I10 [facility] [address] [facility] [id number] [address] [place] [address] Apr, [facility] [address], [place] [id number] 57 February, IV drug abuse F19.10 ; Screen for STD (sexually transmitted disease) Z11.3 and Unprotected sex Z72.51 [facility] [address] [id number] [address] [place] [id number] Dec, [facility] [address] [id number] [address] [place] [phone] Jul, Moderate episode of recurren t major depressive disorder F33.1 [facility] [address] [id number] [address] [place] [phone] May, [facility] [address] [id number] [address] [place] [phone] Apr, Moderate episode of recurren t major depressive disorder F33.1 [facility] [address] [id number] [address] [place] [phone] Apr, Moderate episode of recurren t major depressive disorder F33.1 [facility] [address] [id number] [address] [place] [address] Apr, [facility] [address] [id number] [address] [place] [phone] Apr, Moderate episode of recurren t major depressive disorder F33.1 [facility] [address] [id number] [address] [place] [phone] Mar, [facility] [address] [id number] [address] [place] [phone] Mar, Moderate episode of recurren t major depressive disorder F33.1 and Hypertension I10 [facility] [address] [id number] [address] [place] [address] Mar, Bipolar II disorder F31.81 [facility] [address] [id number] [address] [place] [address] February, [facility] [address] [id number] [address] [place] [phone] February, [facility] [address] [id number] [address] [place] [id number] February, [facility] [address] [id number] [address] [place] [id number] Dec, [facility] [address] [id number] [address] [place] [id number] Nov, Psoriasis L40.9 [facility] [address] [id number] [address] [place] [id number] Nov, [facility] [address] [id number] [address] [place] [address] Nov, Anxiety F41.9 [facility] [address] [id number] [address] [place] [address] Oct, [facility] [address] [id number] [address] [place] [id number] Oct, [facility] [address] [id number] [address] [place] [id number] Oct, [facility] [address] [id number] [address] [place] [id number] Oct, [facility] [address] [id number] [address] [place] [address] Sep, [facility] [address] [id number] [address] [place] [id number] Sep, [facility] [address] [id number] [address] [place] [id number] Aug, Dental examination Z01.20 an d Dental caries K02.9 [facility] [address] [id number] [address] [place] [address] Aug, [facility] [address] [id number] [address] [place] [address] Jul, [facility] [address] [id number] [address] [place] [phone] Jul, [facility] [address] [id number] [address] [place] [phone] Jul, Moderate episode of recurren t major depressive disorder F33.1 [facility] [address] [id number] [address] [place] [phone] 18 Jun, 2017 Moderate episode of recurren t major depressive disorder F33.1 and Anxiety F41.9 [facility] [address] [id number] [address] [place] [id number] 14 Jun, 2017 [facility] [address] [id number] [address] [place] [id number] Jun, Anxiety F41.9 [place] [address] [facility] [id number] [address] [place] [address] Jun, Moderate episode of recurren t major depressive disorder F33.1 [facility] [address] [facility] [id number] [address] [place] [id number] Jun, [facility] [address] [facility] [id number] [address] [place] [id number] May, Moderate episode of recurren t major depressive disorder F33.1 [facility] [address] [facility] [id number] [address] [place] [phone] May, [facility] [address] [facility] [id number] [address] [place] [address] May, Encounter for well woman exa m with routine gynecological exam Z01.419 and Anxiety F41.9 [facility] [address] [facility] [id number] [address] [place] [address] Apr, [facility] [address] [facility] [id number] [address] [place] [phone] Mar, Affective disorder F39 ; [place] zodiazepine dependence F13.20 and High risk sexual behavior Z72.51 [facility] [address] [facility] [id number] [address] [place] [id number] 17 Jan, 2017 Dyspepsia R10.13 ; Gastroeso phageal reflux disease without esophagitis K21.9 and Affective disorder F39 [facility] [address] [facility] [id number] [address] [place] [id number] Jan, Affective disorder F39 [facility] [address] [place] [id number] [address] [place] [address] Dec, Moderate episode of recurren t major depressive disorder F33.1 [facility] [address] [place] [id number] [address] [place] [id number] 14 Nov, 2016 Unspecified episodic mood di sorder F39 and Essential hypertension I10 [facility] [address] [place] [id number] [address] [place] [id number] 02 Nov, 2016 Affective disorder F39 ; Anx iety F41.9 and Unspecified episodic mood disorder F39 [facility] [address] [place] [id number] [address] [place] [phone] Oct, [facility] [address] [address] Oct, [facility] [address], [place] [id number] Sep, Dysuria R30.0 [facility] [address] [address] Sep, [facility] [address] [place] [id number] [address] [place] [id number] Aug, [facility] [address] [id number] Aug, [facility] [address] [place] [id number] [address] [place] [address] Jul, [facility] [address] [place] [id number] [address] [place] [id number] Jul, Acute non-recurrent maxillar y sinusitis J01.00 and Dysuria R30.0 [facility] [address] [place] [id number] [address] [place] [id number] Jul, Affective disorder F39 ; Ess ential hypertension I10 ; Lumbago with sciatica, unspecified side M54.40 ; Other chronic pain G89.29 and Acute vaginitis N76.0 [facility] [address] [facility] [id number] [address] [place] [id number] 22 Jun, 2016 [facility] [address] [id number] [address] [place] [phone] Jun, [facility] [address] [id number] [address] [place] [id number] 15 Jun, 2016 [facility] [address] [facility] [id number] [address] [place] [phone] May, Anxiety F41.9 [facility] [address] [facility] [id number] [address] [place] [phone] May, [facility] [address] [facility] [id number] [address] [place] [phone] May, [facility] [address] [facility] [id number] [address] [place] [phone] Apr, [facility] [address] [facility] [id number] [address] [place] [id number] Apr, Affective disorder F39 [facility] [address] [facility] [id number] [address] [place] [phone] Apr, [facility] [address] [facility] [id number] [address] [place] [id number] Apr, Unspecified episodic mood di sorder F39 [facility] [address] [facility] [id number] [address] [place] [phone] Jan, Hypertension I10 [facility] [address] [facility] [id number] [address] [place] [address] Jan, Benzodiazepine dependence F1 3.20 and Arthritis M19.90 [facility] [address] [facility] [id number] [address] [place] [address] Nov, [facility] [address] [place] [id number] [address] [place] [address] Jul, Migraine G43.909 ; Hypertens ion I10 and Arthritis M19.90 [facility] [address] [id number] [address] [place] [address], [place] [address] Jun, [facility] [address] [id number] [address] [place] [id number] Jun, [facility] [address] [id number] [address] [place] [id number] Jun, [facility] [address] [id number] [address] [place] [address], [place] [address] May, [facility] [address] [id number] [address] [place] [address], [place] [address] Jan, [facility] [address] [id number] [address] [place] [phone] Jan, [facility] [address] [id number] [address] [place] [id number] Nov, [facility] [address] [id number] [address] [place] [address], [place] [address] Nov, [facility] [address] [id number] [address] [place] [phone] Oct, [facility] [address] [id number] [address] [place] [id number] Oct, [facility] [address] [id number] [address] [place] [id number] Oct, [facility] [address] [id number] [address] [place] [id number] Oct, [facility] [address] [id number] [address] [place] [phone] Aug, [facility] [address] [id number] [address] [place] [id number] Aug, [facility] [address] [id number] [facility] [place] [address] Aug, [facility] [address] [id number] [address] [place] [address], [place] [address] Aug, [facility] [address] [id number] [address] [place] [address], [place] [address] Aug, [facility] [address] [id number] [address] [place] [address], [place] [address] Aug, [facility] [address] [id number] [address] [place] [address], [place] [address] Aug, [facility] [address] [id number] [address] [place] [address], [place] [address] May, [facility] [address] [id number] [address] [place] [address], [place] [address] May, [facility] [address] [id number] [address] [place] [address], [place] [address] May, [facility] [address] [id number] [address] [place] [address], [place] [address] May, [facility] [address] [id number] [address] [place] [address], [place] [address] May, [facility] [address] [id number] [address] [place] [address], [place] [address] Apr, [facility] [address] [id number] [address] [place] [address], [place] [address] Apr, [facility] [address] [id number] [address] [place] [address], [place] [address] Apr, [facility] [address] [id number] [address] [place] [address], [place] [address] Apr, [facility] [address] [id number] [address] [place] [address], [place] [address] Apr, [facility] [address] [id number] [address] [place] [address], [place] [address] Apr, [facility] [address] [id number] [facility] [place] [address] Apr, [facility] [address] [id number] [facility] [place] [address] Apr, [facility] [address] [id number] [facility] [place] [address] Mar, [facility] [address] [id number] [address] [place] [address], [place] [address] Mar, [facility] [address] [id number] [address] [place] [address], [place] [address] Mar, [facility] [address] [id number] [address] [place] [address], [place] [address] Mar, [facility] [address] [id number] [address] [place] [address], [place] [address] Mar, [facility] [address] [id number] [address] [place] [address], [place] [address] Mar, [facility] [address] [id number] [address] [place] [address], [place] [address] Mar, [facility] [address] [id number] [address] [place] [address], [place] [address] February, [facility] [address] [id number] [address] [place] [address], [place] [address] February, [facility] [address] [id number] [address] [place] [address], [place] [address] Jan, [facility] [address] [id number] [address] [place] [address], [place] [address] Jan, [facility] [address] [id number] [address] [place] [address], [place] [address] Jan, [facility] [address] [id number] [address] [place] [address], [place] [address] Jan, [facility] [address] [id number] [address] [place] [address], [place] [address] Jan, [facility] [address] [id number] [address] [place] [address], [place] [address] Jan, [facility] [address] [id number] [address] [place] [address], [place] [address] Dec, [facility] [address] [id number] [address] [place] [address], [place] [address] Dec, [facility] [address] [id number] [address] [place] [address], [place] [address] Dec, [facility] [address] [id number] [address] [place] [address], [place] [address] Nov, [facility] [address] [id number] [address] [place] [address], [place] [address] Nov, [facility] [address] [id number] [address] [place] [address], [place] [address] Nov, [facility] [address] [id number] [address] [place] [address], [place] [address] Nov, [facility] [address] [id number] [address] [place] [address], [place] [address] Oct, [facility] [address] [id number] [address] [place] [address], [place] [address] Oct, [facility] [address] [id number] [address] [place] [address], [place] [address] Oct, [facility] [address] [id number] [address] [place] [address], [place] [address] Oct, [facility] [address] [id number] [address] [place] [address], [place] [address] Oct, [facility] [address] [id number] [address] [place] [address], [place] [address] Oct, [facility] [address] [id number] [address] [place] [address], [place] [address] Sep, [facility] [address] [id number] [address] [place] [address], [place] [address] Sep, [facility] [address] [id number] [address] [place] [address], [place] [address] Aug, [facility] [address] [id number] [address] [place] [address], [place] [address] Aug, [facility] [address] [id number] [address] [place] [address], [place] [address] Aug, [facility] [address] [id number] [address] [place] [address], [place] [address] Aug, [facility] [address] [id number] [address] [place] [address], [place] [address] Jul, [facility] [address] [id number] [address] [place] [address], [place] [address] Jul, [facility] [address] [id number] [address] [place] [address], [place] [address] Jul, [facility] [address] [id number] [address] [place] [address], [place] [address] Jul, [facility] [address] [id number] [address] [place] [address], [place] [address] Jul, [facility] [address] [id number] [address] [place] [address], [place] [address] Apr, [facility] [address] [id number] [address] [place] [address], [place] [address] Apr, [facility] [address] [id number] [address] [place] [address], [place] [address] Mar, [facility] [address] [id number] [address] [place] [address], [place] [address] Mar, [facility] [address] [id number] [address] [place] [address], [place] [address] February, [facility] [address] [id number] [address] [place] [address], [place] [address] Dec, [facility] [address] [id number] [address] [place] [address], [place] [address] Dec, [facility] [address] [id number] [address] [place] [address], [place] [address] Dec, [facility] [address] [id number] [address] [place] [address], [place] [address] Oct, [facility] [address] [id number] [address] [place] [address], [place] [address] Oct, [facility] [address] [id number] [address] [place] [address], [place] [address] Sep, [facility] [address] [id number] [address] [place] [address], [place] [address] Aug, [facility] [address] [id number] [address] [place] [address], [place] [address] Aug, [facility] [address] [id number] [address] [place] [address], [place] [address] Aug, [facility] [address] [id number] [address] [place] [address], [place] [address] Aug, [facility] [address] [id number] [address] [place] [address], [place] [address] Aug, [facility] [address] [id number] [address] [place] [address], [place] [address] Aug, [facility] [address] [id number] [address] [place] [id number] Aug, [facility] [address] [id number] [address] [place] [address], [place] [address] Jul, [facility] [address] [id number] [address] [place] [address], [place] [address] Jul, [facility] [address] [id number] [address] [place] [address], [place] [address] Jul, [facility] [address] [id number] [address] [place] [address], [place] [address] 26 Jun, 2012 [facility] [address] [id number] [address] [place] [address], [place] [address] 23 Apr, 2012 [facility] [address] [id number] [address] [place] [address], [place] [address] 17 Apr, 2012 [facility] [address] [id number] [address] [place] [address], [place] [address] Apr, [facility] [address] [id number] [address] [place] [address], [place] [address] Mar, [facility] [address] [id number] [address] [place] [address], [place] [address] Mar, [facility] [address] [id number] [address] [place] [address], [place] [address] Jan, [facility] [address] [id number] [address] [place] [address], [place] [address] Dec, [facility] [address] [id number] [address] [place] [address], [place] [address] May, [facility] [address] [id number] [address] [place] [address], [place] [address] Sep, [facility] [address] [id number] [address] [place] [address], [place] [address] Sep, [facility] [address] [id number] [address] [place] [address], [place] [address] Aug, [facility] [address] [id number] [address] [place] [address], [place] [address] 21 Jul, 2010 [facility] [address] [id number] [address] [place] [address], [place] [id number] 11 Jul, 2010 [facility] [address] [id number] [address] [place] [address], [place] [id number] 15 Apr, 2010 [facility] [address] [id number] [address] [place] [address], [place] [id number] 12 Jan, 2010 [facility] [address] [id number] [address] [place] [phone] Aug, [facility] [address] [id number] [address] [place] [phone] Aug, [facility] [address] [id number] [address] [place] [phone] Aug, [facility] [address] [id number] [address] [place] [phone] Aug, [facility] [address] [id number] [address] [place] [phone] Jul, [facility] [address] [id number] [address] [place] [phone] May, [facility] [address] [id number] [address] [place] [id number] Apr, [facility] [address] [id number] [address] [place] [id number] February, [facility] [address] [id number] [address] [place] [id number] Dec, IMMUNIZATIONS No Known Immunizations SOCIAL HISTORY Never Assessed REASON FOR VISIT PLAN OF CARE VITAL SIGNS Height 67 in 2014-06-09 Weight 176.3 lbs 2014-06-09 Temperature 97.3 degrees Fahrenheit 2014-06-09 Heart Rate 110 bpm 2014-06-09 Respiratory Rate 24 2014-06-09 Blood pressure systolic 132 mmHg 2014-06-09 Blood pressure diastolic 94 mmHg 2014-06-09 MEDICATIONS Unknown Medications RESULTS No Results PROCEDURES Procedure Date Ordered Result Body Site URINE CULTURE/COLONY COUNT Jun 09, 2014 ECG MONITOR/RECORD, 24 HRS Jun 09, 2014 URINALYSIS, AUTO, W/O SCOPE Jun 09, 2014 INSTRUCTIONS MEDICATIONS ADMINISTERED No Known Medications MEDICAL (GENERAL) HISTORY Type Description Date Medical History migraine headaches Medical History Unspecified backache Surgical History Hysterectomy 2002 Surgical History Bladder surgeries x 3 Hospitalization History Pneumonia 2013 Hospitalization History kidney stones 2013 Hospitalization History Suicidal ideation/intentional overdo -[facility] 03/16/18 Hospitalization History Behavorial hospitalization [facility] 03/2018
[2020-02-24 12:27] LABS: BILIRUBIN,TOTAL 0.4 MG/DL (0.1-1.0)
[2020-02-24 12:29] LABS: ALKALINE PHOSPHATASE 76 U/L (40-136); CREATININE SERUM 0.81 MG/DL (0.60-1.30); GFR ESTIMATED > 60
[2020-02-24 12:30] LABS: BUN/CREATININE RATIO 12
[2020-02-24 12:31] LABS: ACETAMINOPHEN < 10 UG/ML (10-30)
--- OUTSIDE RECORDS SUMMARY | 2020-02-24 12:31 | XMS REPORT | Continuity of Care Document ---
Author Organization Unknown Address Unknown Phone Unavailable Allergies Active Description Code Type Severity Reaction Onset Reported/Identified Relationship to Patient Clinical Status Yes No Known Drug Allergies [id number] Miscellaneous Allergy Moderate N/A Yes NO NAME AVAILABLE 22162 DRUG N/A N/A Yes morphine [id number] Drug Allergy Unknown MAYBE HIVES BUT 10/30/2008 Yes Levaquin Drug Allergy N/A N/A 12/30/2008 Yes morphine Drug Allergy N/A N/A 12/30/2008 Yes Levaquin Drug Allergy 12/30/2008 Yes morphine Drug Allergy 12/30/2008 Yes levofloxacin [id number] Drug Allergy Mild HIVES 04/30/2009 Yes Pyridium Drug Allergy N/A N/A 06/03/2011 Yes Pyridium Drug Allergy 06/03/2011 Yes Levaquin Drug Allergy N/A Pruritus 02/17/2014 Yes morphine Drug Allergy N/A Urticaria (hives) 02/17/2014 Yes tramadol Drug Allergy N/A N/A 05/09/2014 Yes LEVOFLOXACIN [id number] DRUG INGREDI Low Hives 03/17/2018 03/17/2018 Yes MORPHINE AND RELATED 14 Drug Clas s Low Hives 03/17/2018 03/17/2018 Yes MORPHINE AND RELATED 14 Drug Clas s Med Hives 03/17/2018 03/17/2018 Medications Medication Packaging Start Date St op Date Route Dosage Sig OLANZAPINE 10 MG PO TBDP 03/17/2018 Oral 10 2 TI MES DAILY PRN OLANZAPINE 10 MG PO TABS 03/17/2018 Oral 10 2 TI MES DAILY PRN MAGNESIUM HYDROXIDE 400 MG/5ML PO SUSP 03/17/2018 Oral 30 DAILY PRN ALUM T MAG HYDROXIDE-SIMETH 200-200-20 MG/5ML PO SUSP 03/17/2018 Oral 30 4 TIMES DAILY PRN ACETAMINOPHEN 325 MG PO TABS 03/17/2018 Oral 650 EVERY 6 HOURS PRN NICOTINE POLACRILEX 2 MG MT GUM 03/17/2018 Oral 2 EVERY 1 HOUR PRN NICOTINE POLACRILEX 2 MG MT LOZG 03/17/2018 Oral 2 EVERY 1 HOUR PRN IBUPROFEN 600 MG PO TABS 03/17/2018 Oral 600 EVER Y 6 HOURS PRN FAMOTIDINE 20 MG PO TABS 03/17/2018 Oral 20 2 TI MES DAILY PRN GABAPENTIN 400 MG PO CAPS 03/17/2018 Oral 800 4 TI MES DAILY TRAZODONE HCL 100 MG PO TABS 03/17/2018 Oral 100 BEDTIME CLONIDINE HCL 0.1 MG PO TABS 03/17/2018 Oral 0.1 2 TIMES DAILY BUSPIRONE HCL 15 MG PO TABS 03/17/2018 Oral 15 3 TIMES DAILY NICOTINE 14 MG/24HR TD PT24 03/18/2018 Transdermal 1 DAILY ATENOLOL 50 MG PO TABS 03/18/2018 Oral 50 ZARINA Y SERTRALINE HCL 25 MG PO TABS 03/18/2018 Oral 25 DAILY [id number] N 400-5-5000 EX OINT 03/18/2018 Topical 2 TIMES DAILY FOSFOMYCIN TROMETHAMINE 3 G PO PACK 03/19/2018 Oral 3 ONCE ARIPIPRAZOLE 5 MG PO TABS 03/20/2018 Oral 5 ZARINA Y MELATONIN 1 MG PO TABS 03/20/2018 Oral 1 [place] TRAZODONE HCL 100 MG PO TABS 03/20/2018 Oral 200 BEDTIME QUETIAPINE FUMARATE 200 MG PO TABS 03/20/2018 Oral 200 BEDTIME SERTRALINE HCL 50 MG PO TABS 03/21/2018 Oral 50 DAILY ARIPIPRAZOLE 15 MG PO TABS 03/21/2018 Oral 7.5 DAILY BUSPIRONE HCL 10 MG PO TABS 03/21/2018 Oral 20 3 TIMES DAILY OLANZAPINE 10 MG PO TBDP 03/22/2018 Oral 10 2 TI MES DAILY PRN OLANZAPINE 5 MG PO TABS 03/22/2018 Oral 5 4 TI MES DAILY PRN SERTRALINE HCL 100 MG PO TABS 03/23/2018 Oral 100 DAILY BUSPIRONE HCL 15 MG PO TABS 03/23/2018 Oral 30 2 TIMES DAILY Problems Date Dx Coded Attending Type Code Diagnosis Diagnosed By 05/20/2008 DEONDRE SHAFFER MD 296.9 0 Mood Disorder 05/20/2008 DEONDRE SHAFFER MD 307.4 0 Insomnia 05/20/2008 DEONDRE SHAFFER MD V58.6 9 MEDICATION HIGH RISK 05/20/2008 DEONDRE SHAFFER MD 296.9 0 Mood Disorder 05/20/2008 DEENA ROTH, DEONDRE 307.4 0 Insomnia 05/20/2008 DEENA ROTH, DEONDRE V58.6 9 MEDICATION HIGH RISK 05/20/2008 DEENA ROTH, DEONDRE 296.9 0 Mood Disorder 05/20/2008 DEENA ROTH, DEONDRE 307.4 0 Insomnia 05/20/2008 DEENA ROTH, DEONDRE V58.6 9 MEDICATION HIGH RISK 05/20/2008 DEENA ROTH, DEONDRE 296.9 0 Mood Disorder 05/20/2008 DEENA ROTH, DEONDRE 307.4 0 Insomnia 05/20/2008 DEENA ROTH, DEONDRE V58.6 9 MEDICATION HIGH RISK 05/20/2008 DEENA ROTH, DEONDRE 296.9 0 Mood Disorder 05/20/2008 DEENA ROTH, DEONDRE 307.4 0 Insomnia 05/20/2008 DEENA ROTH, DEODNRE V58.6 9 MEDICATION HIGH RISK 05/20/2008 DEENA ROTH, DEONDRE 296.9 0 Mood Disorder 05/20/2008 DEONDRE SHAFFER MD 307.4 0 Insomnia 05/20/2008 DEONDRE SHAFFER MD V58.6 9 MEDICATION HIGH RISK 05/20/2008 DEENA ROTH, DEONDRE 296.9 0 Mood Disorder 05/20/2008 DEONDRE SAHFFER MD 307.4 0 Insomnia 05/20/2008 DEONDRE SHAFFER MD V58.6 9 MEDICATION HIGH RISK 05/20/2008 SHAMIKA TURCIOS APRNNDA S 296.90 Mood Disorder 05/20/2008 TAM LEON GENEVA S 307.40 Insomnia 05/20/2008 SHAMIKA TURCIOS APRNNDA S V58.69 MEDICATION HIGH RISK 05/20/2008 TENISHA LEON, SANDRINE R 296.90 Mood Disorder 05/20/2008 TENISHA LEON, SANDRINE R 307.40 Insomnia 05/20/2008 TENISHA LEON, SANDRINE R V58.69 MEDICATION HIGH RISK 05/20/2008 DEONDRE SHAFFER MD 296.9 0 Mood Disorder 05/20/2008 DEONDRE SHAFFER MD 307.4 0 Insomnia 05/20/2008 DEONDRE SHAFFER MD V58.6 9 MEDICATION HIGH RISK 05/20/2008 TENISHA PAINTER HELPER SPRAY, SANDRINE R 296.90 Mood Disorder 05/20/2008 TENISHA LEON, SANDRINE R 307.40 Insomnia 05/20/2008 TENISHA PAINTER HELPER SPRAY, SANDRINE R V58.69 MEDICATION HIGH RISK 08/12/2008 DEENA ROTH, DEONDRE 256.4 Polycystic Ovaries 08/12/2008 DEENA ROTH, DEONDRE 477.9 Rhinitis Allergic 08/12/2008 DEENA ROTH, DEONDRE 256.4 Polycystic Ovaries 08/12/2008 DEENA ROTH, DEONDRE 477.9 Rhinitis Allergic 08/12/2008 DEENA ROTH, DEONDRE 256.4 Polycystic Ovaries 08/12/2008 DEENA ROTH, DEONDRE 477.9 Rhinitis Allergic 08/12/2008 DEENA ROTH, DEONDRE 256.4 Polycystic Ovaries 08/12/2008 DEENA ROTH, DEONDRE 477.9 Rhinitis Allergic 08/12/2008 DEENA ROTH, DEONDRE 256.4 Polycystic Ovaries 08/12/2008 DEENA ROTH, DEONDRE 477.9 Rhinitis Allergic 08/12/2008 DEENA ROTH, DEONDRE 256.4 Polycystic Ovaries 08/12/2008 DEENA ROTH, DEONDRE 477.9 Rhinitis Allergic 08/12/2008 DEENA ROTH, DEONDRE 256.4 Polycystic Ovaries 08/12/2008 DEENA ROTH, DEONDRE 477.9 Rhinitis Allergic 08/12/2008 TAMMELA LEON, GENEVA S 256.4 Polycystic Ovaries 08/12/2008 TAMMELA LEON, GENEVA S 477.9 Rhinitis Allergic 08/12/2008 TENISHA ANGN, SANDRINE R 256.4 Polycystic Ovaries 08/12/2008 TENISHA PAINTER HELPER SPRAY, SANDRINE R 477.9 Rhinitis Allergic 08/12/2008 DEONDRE SHAFFER MD 256.4 Polycystic Ovaries 08/12/2008 DEENA ROTH, DEONDRE 477.9 Rhinitis Allergic 08/12/2008 TENISHA PAINTER HELPER SPRAY, SANDRINE R 256.4 Polycystic Ovaries 08/12/2008 TENISHA PAINTER HELPER SPRAY, SANDRINE R 477.9 Rhinitis Allergic 09/14/2008 DEONDRE SHAFFER MD 530.8 1 Gerd 09/14/2008 DEONDRE SHAFFER MD 536.8 Dyspepsia 09/14/2008 DEONDRE SHAFFER MD 780.5 2 Insomnia Unspecified 09/14/2008 DEONDRE SHAFFER MD 787.0 2 Nausea Alone 09/14/2008 DEONDRE SHAFFER MD 530.8 1 Gerd 09/14/2008 DEONDRE SHAFFER MD 536.8 Dyspepsia 09/14/2008 DEONDRE SHAFFER MD 780.5 2 Insomnia Unspecified 09/14/2008 DEONDRE SHAFFER MD 787.0 2 Nausea Alone 09/14/2008 DEONDRE SHAFFER MD 530.8 1 Gerd 09/14/2008 DEONDRE SHAFFER MD 536.8 Dyspepsia 09/14/2008 DEONDRE SHAFFER MD 780.5 2 Insomnia Unspecified 09/14/2008 DEONDRE SHAFFER MD 787.0 2 Nausea Alone 09/14/2008 DEONDRE SHAFFER MD 530.8 1 Gerd 09/14/2008 DEONDRE SHAFFER MD 536.8 Dyspepsia 09/14/2008 DEONDRE SHAFFER MD 780.5 2 Insomnia Unspecified 09/14/2008 DEONDRE SHAFFER MD 787.0 2 Nausea Alone 09/14/2008 DEONDRE SHAFFER MD 530.8 1 Gerd 09/14/2008 DEONDRE SHAFFER MD 536.8 Dyspepsia 09/14/2008 DEONDRE SHAFFER MD 780.5 2 Insomnia Unspecified 09/14/2008 DEONDRE SHAFFER MD 787.0 2 Nausea Alone 09/14/2008 DEONDRE SHAFFER MD 530.8 1 Gerd 09/14/2008 DEONDRE SHAFFER MD 536.8 Dyspepsia 09/14/2008 DEONDRE SHAFFER MD 780.5 2 Insomnia Unspecified 09/14/2008 DEONDRE SHAFFER MD 787.0 2 Nausea Alone 09/14/2008 DEONDRE SHAFFER MD 530.8 1 Gerd 09/14/2008 DEONDRE SHAFFER MD 536.8 Dyspepsia 09/14/2008 DENODRE SHAFFER MD 780.5 2 Insomnia Unspecified 09/14/2008 DEONDRE SHAFFER MD 787.0 2 Nausea Alone 09/14/2008 TAM PAINTER HELPER SPRAY, GENEVA S 530.81 Gerd 09/14/2008 TAM PAINTER HELPER SPRAY, GENEVA S 536.8 Dyspepsia 09/14/2008 TAM PAINTER HELPER SPRAY, GENEVA S 780.52 Insomnia Unspecified 09/14/2008 TAM PAINTER HELPER SPRAY, GENEVA S 787.02 Nausea Alone 09/14/2008 TENISHA PAINTER HELPER SPRAY, SANDRINE R 530.81 Gerd 09/14/2008 TENISHA PAINTER HELPER SPRAY, SANDRINE R 536.8 Dyspepsia 09/14/2008 TENISHA PAINTER HELPER SPRAY, SANDRINE R 780.52 Insomnia Unspecified 09/14/2008 TENISHA PAINTER HELPER SPRAY, SANDRINE R 787.02 Nausea Alone 09/14/2008 DEONDRE SHAFFER MD 530.8 1 Gerd 09/14/2008 DEONDRE SHAFFER MD 536.8 Dyspepsia 09/14/2008 DEONDRE SHAFFER MD 780.5 2 Insomnia Unspecified 09/14/2008 DEONDRE SHAFFER MD 787.0 2 Nausea Alone 09/14/2008 TENISHA PAINTER HELPER SPRAY, SANDRINE R 530.81 Gerd 09/14/2008 TENISHA PAINTER HELPER SPRAY, SANDRINE R 536.8 Dyspepsia 09/14/2008 TENISHA PAINTER HELPER SPRAY, SANDRINE R 780.52 Insomnia Unspecified 09/14/2008 TENISHA PAINTER HELPER SPRAY, SANDRINE R 787.02 Nausea Alone 10/04/2008 DEONDRE SHAFFER MD 465.9 Upper Respiratory Infection 10/04/2008 DEONDRE SHAFFER MD 786.2 Cough 10/04/2008 DEONDRE SHAFFER MD V58.3 2 Wound Suture Removal 10/04/2008 DEONDRE SHAFFER MD 465.9 Upper Respiratory Infection 10/04/2008 DEONDRE SHAFFER MD 786.2 Cough 10/04/2008 DEENA ROTH, DEONDRE V58.3 2 Wound Suture Removal 10/04/2008 DEONDRE SHAFFER MD 465.9 Upper Respiratory Infection 10/04/2008 DEENA ROTH, DEONDRE 786.2 Cough 10/04/2008 DEONDRE SHAFFER MD V58.3 2 Wound Suture Removal 10/04/2008 DEONDRE SHAFFER MD 465.9 Upper Respiratory Infection 10/04/2008 DEONDRE SHAFFER MD 786.2 Cough 10/04/2008 DEENA ROTH, DEONDRE V58.3 2 Wound Suture Removal 10/04/2008 DEONDRE SHAFFER MD 465.9 Upper Respiratory Infection 10/04/2008 DEONDRE SHAFFER MD 786.2 Cough 10/04/2008 DEONDRE SHAFFER MD V58.3 2 Wound Suture Removal 10/04/2008 DEONDRE SHAFFER MD 465.9 Upper Respiratory Infection 10/04/2008 DEENA ROTH, DEONDRE 786.2 Cough 10/04/2008 DEENA ROTH, DEONDRE V58.3 2 Wound Suture Removal 10/04/2008 DEONDRE SHAFFER MD 465.9 Upper Respiratory Infection 10/04/2008 DEONDRE SHAFFER MD 786.2 Cough 10/04/2008 DEONDRE SHAFFER MD V58.3 2 Wound Suture Removal 10/04/2008 TAM LEON, GENEVA S 465.9 Upper Respiratory Infection 10/04/2008 TAM PAINTER HELPER SPRAY, GENEVA S 786.2 Cough 10/04/2008 TAMMELA LEON, GENEVA S V58.32 Wound Suture Removal 10/04/2008 TENISHA PAINTER HELPER SPRAY, SANDRINE R 465.9 Upper Respiratory Infection 10/04/2008 TENISHA PAINTER HELPER SPRAY, SANDRINE R 786.2 Cough 10/04/2008 TENISHA PAINTER HELPER SPRAY, SANDRINE R V58.32 Wound Suture Removal 10/04/2008 DEONDRE SHAFFER MD 465.9 Upper Respiratory Infection 10/04/2008 DEONDRE SHAFFER MD 786.2 Cough 10/04/2008 DEONDRE SHAFFER MD V58.3 2 Wound Suture Removal 10/04/2008 TENISHA PAINTER HELPER SPRAY, SANDRINE R 465.9 Upper Respiratory Infection 10/04/2008 TENISHA LEON, SANDRINE R 786.2 Cough 10/04/2008 TENISHA PAINTER HELPER SPRAY, SANDRINE R V58.32 Wound Suture Removal 12/30/2008 DEONDRE SHAFFER MD 466.0 Bronchitis, Acute 12/30/2008 DEONDRE SHAFFER MD 466.0 Bronchitis, Acute 12/30/2008 DEONDRE SHAFFER MD 466.0 Bronchitis, Acute 12/30/2008 DEONDRE SHAFFER MD 466.0 Bronchitis, Acute 12/30/2008 DEONDRE SHAFFER MD 466.0 Bronchitis, Acute 12/30/2008 DEONDRE SHAFFER MD 466.0 Bronchitis, Acute 12/30/2008 DEONDRE SHAFFER MD 466.0 Bronchitis, Acute 12/30/2008 SHAMIKA TURCIOS APRNNDA S 466.0 Bronchitis, Acute 12/30/2008 TENISHA LEON, SANDRINE R 466.0 Bronchitis, Acute 12/30/2008 DEONDRE SHAFFER MD 466.0 Bronchitis, Acute 12/30/2008 TENISHA LEON, SANDRINE R 466.0 Bronchitis, Acute 02/28/2009 DEONDRE SHAFFER MD 784.0 Headache 02/28/2009 DEONRDE SHAFFER MD V48.5 Pain / Temperature Decrease Neck 02/28/2009 DEONDRE SHAFFER MD 784.0 Headache 02/28/2009 DEENA ROTH, DEONDRE V48.5 Pain / Temperature Decrease Neck 02/28/2009 DEENA ROTH, DEONDRE 784.0 Headache 02/28/2009 DEENA ROTH, DEONDRE V48.5 Pain / Temperature Decrease Neck 02/28/2009 DEENA ROTH, DEONDRE 784.0 Headache 02/28/2009 DEENA ROTH, DEONDRE V48.5 Pain / Temperature Decrease Neck 02/28/2009 DEENA ROTH, DEONDRE 784.0 Headache 02/28/2009 DEENA ROTH, DEONDRE V48.5 Pain / Temperature Decrease Neck 02/28/2009 DEENA ROTH, DEONDRE 784.0 Headache 02/28/2009 DEENA ROTH, DEONDRE V48.5 Pain / Temperature Decrease Neck 02/28/2009 DEENA ROTH, DEONDRE 784.0 Headache 02/28/2009 DEENA ROTH, DEONDRE V48.5 Pain / Temperature Decrease Neck 02/28/2009 TAM PAINTER HELPER SPRAY, GENEVA S 784.0 Headache 02/28/2009 TAM LEON, GENEVA S V48.5 Pain / Temperature Decrease Neck 02/28/2009 TENISHA PAINTER HELPER SPRAY, SANDRINE R 784.0 Headache 02/28/2009 TENISHA PAINTER HELPER SPRAY, SANDRINE R V48.5 Pain / Temperature Decrease Neck 02/28/2009 DEENA ROTH, DEONDRE 784.0 Headache 02/28/2009 DEENA ROTH, DEONDRE V48.5 Pain / Temperature Decrease Neck 02/28/2009 TENISHA PAINTER HELPER SPRAY, SANDRINE R 784.0 Headache 02/28/2009 TENISHA LEON, SANDRINE R V48.5 Pain / Temperature Decrease Neck 06/12/2009 DEONDRE SHAFFER MD 296.2 2 MO DEPRESSIVE SINGLE MODERATE 06/12/2009 DEONDRE SHAFFER MD 296.2 2 MO DEPRESSIVE SINGLE MODERATE 06/12/2009 DEONDRE SHAFFER MD 296.2 2 MO DEPRESSIVE SINGLE MODERATE 06/12/2009 DEONDRE SHAFFER MD 296.2 2 MO DEPRESSIVE SINGLE MODERATE 06/12/2009 DEONDRE SHAFFER MD 296.2 2 MO DEPRESSIVE SINGLE MODERATE 06/12/2009 DEONDRE SHAFFER MD 296.2 2 MO DEPRESSIVE SINGLE MODERATE 06/12/2009 DEONDRE SHAFFER MD 296.2 2 MO DEPRESSIVE SINGLE MODERATE 06/12/2009 TAMROBERTO GUZMAN APRNA S 296.22 MO DEPRESSIVE SINGLE MODERATE 06/12/2009 TENISHA LEON, SANDRINE R 296.22 MO DEPRESSIVE SINGLE MODERATE 06/12/2009 DEONDRE SHAFFER MD 296.2 2 MO DEPRESSIVE SINGLE MODERATE 06/12/2009 TASHA STEVEN APRNINA R 296.22 MO DEPRESSIVE SINGLE MODERATE 06/16/2009 DEONDRE SHAFFER MD 596.9 Bladder Disorders 06/16/2009 DEONDRE SHAFFER MD 788.1 Pain During Urination (dysuria) 06/16/2009 DEONDRE SHAFFER MD 59Randal.9 Bladder Disorders 06/16/2009 DEONDRE SHAFFER MD 788.1 Pain During Urination (dysuria) 06/16/2009 DEONDRE SHAFFER MD.9 Bladder Disorders 06/16/2009 DEONDRE SHAFFER MD 788.1 Pain During Urination (dysuria) 06/16/2009 DEONDRE SHAFFER MD 596.9 Bladder Disorders 06/16/2009 DEONDRE SHAFFER MD 788.1 Pain During Urination (dysuria) 06/16/2009 DEONDRE SHAFFER MD 59Randal.9 Bladder Disorders 06/16/2009 DEONDRE SHAFFER MD 788.1 Pain During Urination (dysuria) 06/16/2009 DEONDRE SHAFFER MD.9 Bladder Disorders 06/16/2009 DEONDRE SHAFFER MD 788.1 Pain During Urination (dysuria) 06/16/2009 DEONDRE SHAFFER MD 596.9 Bladder Disorders 06/16/2009 DEONDRE SHAFFER MD 788.1 Pain During Urination (dysuria) 06/16/2009 ROBERTO TURCIOS APRNA S 596.9 Bladder Disorders 06/16/2009 ROBERTO TURCIOS APRNA S 788.1 Pain During Urination (dysuria) 06/16/2009 TASHA STEVEN APRNINA R 596.9 Bladder Disorders 06/16/2009 SANDRINE STEVEN APRN R 788.1 Pain During Urination (dysuria) 06/16/2009 DEONDRE SHFAFER MD 596.9 Bladder Disorders 06/16/2009 DEONDRE SHAFFER MD 788.1 Pain During Urination (dysuria) 06/16/2009 SANDRINE STEVEN APRN R 596.9 Bladder Disorders 06/16/2009 TENISHA PAINTER HELPER SPRAY, SANDRINE R 788.1 Pain During Urination (dysuria) 08/17/2009 DEONDRE SHAFFER MD 296.9 MOOD DIS NOS 08/17/2009 DEONDRE SHAFFER MD 300.0 0 Anxiety 08/17/2009 DEONDRE SHAFFER MD 780.7 9 Feelings Of Weakness 08/17/2009 DEONDRE SHAFFER MD 296.9 MOOD DIS NOS 08/17/2009 DEONDRE SHAFFER MD 300.0 0 Anxiety 08/17/2009 DEONDRE SHAFFER MD 780.7 9 Feelings Of Weakness 08/17/2009 DEONDRE SHAFFER MD 296.9 MOOD DIS NOS 08/17/2009 DEONDRE SHAFFER MD 300.0 0 Anxiety 08/17/2009 DEONDRE SHAFFER MD 780.7 9 Feelings Of Weakness 08/17/2009 DEONDRE SHAFFER MD 296.9 MOOD DIS NOS 08/17/2009 DEONDRE SHAFFER MD 300.0 0 Anxiety 08/17/2009 DEONDRE SHAFFER MD 780.7 9 Feelings Of Weakness 08/17/2009 DEONDRE SHAFFER MD 296.9 MOOD DIS NOS 08/17/2009 DEONDRE SHAFFER MD 300.0 0 Anxiety 08/17/2009 DEONDRE SHAFFER MD 780.7 9 Feelings Of Weakness 08/17/2009 DEONDRE SHAFFER MD 296.9 MOOD DIS NOS 08/17/2009 DEONDRE SHAFFER MD 300.0 0 Anxiety 08/17/2009 DEONDRE SHAFFER MD 780.7 9 Feelings Of Weakness 08/17/2009 DEONDRE SHAFFER MD 296.9 MOOD DIS NOS 08/17/2009 DEONDRE SHAFFER MD 300.0 0 Anxiety 08/17/2009 DEONDRE SHAFFER MD 780.7 9 Feelings Of Weakness 08/17/2009 TAM LEON GENEVA S 296.9 MOOD DIS NOS 08/17/2009 TAM LEON, GENEVA S 300.00 Anxiety 08/17/2009 TAM LEON GENEVA S 780.79 Feelings Of Weakness 08/17/2009 TENISHA LEON, SANDRINE R 296.9 MOOD DIS NOS 08/17/2009 TENISHA LEON, SANDRINE R 300.00 Anxiety 08/17/2009 TENISHA LEON, SANDRINE R 780.79 Feelings Of Weakness 08/17/2009 DEONDRE SHAFFER MD 296.9 MOOD DIS NOS 08/17/2009 DEONDRE SHAFFER MD 300.0 0 Anxiety 08/17/2009 DEONDRE SHAFFER MD 780.7 9 Feelings Of Weakness 08/17/2009 TENISHA ANGN, SANDRINE R 296.9 MOOD DIS NOS 08/17/2009 TENISHA ANGN, SANDRINE R 300.00 Anxiety 08/17/2009 TENISHA ANGN, SANDRINE R 780.79 Feelings Of Weakness 01/29/2010 DEONDRE SHAFFER MD 533.9 0 Peptic Ulcer Of Unspecified Site Unspecified As Acute Or Chronic Without Hemorrhage Or Perforation Without Obstruction 01/29/2010 DEONDRE SHAFFER MD 533.9 0 Peptic Ulcer Of Unspecified Site Unspecified As Acute Or Chronic Without Hemorrhage Or Perforation Without Obstruction 01/29/2010 DEONDRE SHAFFER MD 533.9 0 Peptic Ulcer Of Unspecified Site Unspecified As Acute Or Chronic Without Hemorrhage Or Perforation Without Obstruction 01/29/2010 DEONDRE SHAFFER MD 533.9 0 Peptic Ulcer Of Unspecified Site Unspecified As Acute Or Chronic Without Hemorrhage Or Perforation Without Obstruction 01/29/2010 DEONDRE SHAFFER MD 533.9 0 Peptic Ulcer Of Unspecified Site Unspecified As Acute Or Chronic Without Hemorrhage Or Perforation Without Obstruction 01/29/2010 DEONDRE SHAFFER MD 533.9 0 Peptic Ulcer Of Unspecified Site Unspecified As Acute Or Chronic Without Hemorrhage Or Perforation Without Obstruction 01/29/2010 DEONDRE SHAFFER MD 533.9 0 Peptic Ulcer Of Unspecified Site Unspecified As Acute Or Chronic Without Hemorrhage Or Perforation Without Obstruction 01/29/2010 TAM LEON, GENEVA S 533.90 Peptic Ulcer Of Unspecified Site Unspeci fied As Acute Or Chronic Without Hemorrhage Or Perforation Without Obstruction 01/29/2010 TENISHA ANGN, SANDRINE R 533.90 Peptic Ulcer Of Unspecified Site Unspeci fied As Acute Or Chronic Without Hemorrhage Or Perforation Without Obstruction 01/29/2010 DEONDRE SHAFFER MD 533.9 0 Peptic Ulcer Of Unspecified Site Unspecified As Acute Or Chronic Without Hemorrhage Or Perforation Without Obstruction 01/29/2010 TENISHA ANGN, SANDRINE R 533.90 Peptic Ulcer Of Unspecified Site Unspeci fied As Acute Or Chronic Without Hemorrhage Or Perforation Without Obstruction 02/15/2010 DEONDRE SHAFFER MD 401.9 Hypertension, Unspecified Essential 02/15/2010 DEONDRE SHAFFER MD 401.9 Hypertension, Unspecified Essential 02/15/2010 DEENA ROTH, DEONDRE 401.9 Hypertension, Unspecified Essential 02/15/2010 DEENA ROTH, DEONDRE 401.9 Hypertension, Unspecified Essential 02/15/2010 DEENA ROTH, DEONDRE 401.9 Hypertension, Unspecified Essential 02/15/2010 DEENA ROTH, DEONDRE 401.9 Hypertension, Unspecified Essential 02/15/2010 DEENA ROTH, DEONDRE 401.9 Hypertension, Unspecified Essential 02/15/2010 TAM LEON, GENEVA Yung 401.9 Hypertension, Unspecified Essential 02/15/2010 TENISHA LEON, SANDRINE R 401.9 Hypertension, Unspecified Essential 02/15/2010 DEONDRE SHAFFER MD 401.9 Hypertension, Unspecified Essential 02/15/2010 TENISHA LEON, SANDRINE R 401.9 Hypertension, Unspecified Essential 03/15/2010 DEONDRE SHAFFER MD 599.0 Urinary Tract Infection, Site Not Specified 03/15/2010 DEONDRE SHAFFER MD 599.0 Urinary Tract Infection, Site Not Specified 03/15/2010 DEONDRE SHAFFER MD 599.0 Urinary Tract Infection, Site Not Specified 03/15/2010 DEONDRE SHAFFER MD 599.0 Urinary Tract Infection, Site Not Specified 03/15/2010 DEONDRE SHAFFER MD 599.0 Urinary Tract Infection, Site Not Specified 03/15/2010 DEONDRE SHAFFER MD 599.0 Urinary Tract Infection, Site Not Specified 03/15/2010 DEONDRE SHAFFER MD 599.0 Urinary Tract Infection, Site Not Specified 03/15/2010 TAM LEON, GENEVA Yung 599.0 Urinary Tract Infection, Site Not Specified 03/15/2010 TENISHA LEON, SANDRINE R 599.0 Urinary Tract Infection, Site Not Specified 03/15/2010 DEONDRE SHAFFER MD 599.0 Urinary Tract Infection, Site Not Specified 03/15/2010 SANDRINE STEVEN APRN R 599.0 Urinary Tract Infection, Site Not Specified 04/20/2010 Ot 599.0 04/20/2010 Ot 780.39 04/20/2010 Ot 787.01 04/20/2010 Ot 789.00 05/03/2010 DEONDRE SHAFFER MD 922.3 1 Contusion Of Trunk, Back 05/03/2010 DEONDRE SHAFFER MD 922.3 1 Contusion Of Trunk, Back 05/03/2010 DEONDRE SHAFFER MD 922.3 1 Contusion Of Trunk, Back 05/03/2010 DEONDRE SHAFFER MD 922.3 1 Contusion Of Trunk, Back 05/03/2010 DEONDRE SHAFFER MD 922.3 1 Contusion Of Trunk, Back 05/03/2010 DEONDRE SHAFFER MD 922.3 1 Contusion Of Trunk, Back 05/03/2010 DEONDRE SHAFFER MD 922.3 1 Contusion Of Trunk, Back 05/03/2010 GENEVA TURCIOS APRN S 922.31 Contusion Of Trunk, Back 05/03/2010 TENISHA LEON SANDRINE R 922.31 Contusion Of Trunk, Back 05/03/2010 DEONDRE SHAFFER MD 922.3 1 Contusion Of Trunk, Back 05/03/2010 TENISHA LEON SANDRINE R 922.31 Contusion Of Trunk, Back 05/03/2010 Ot 780.39 05/03/2010 Ot V58.69 06/09/2010 Ot 345.90 06/09/2010 Ot 780.39 06/09/2010 Ot 831.01 06/09/2010 Ot E000.8 06/09/2010 Ot E849.0 06/09/2010 Ot E884.4 06/25/2010 Ot 840.9 06/25/2010 Ot 959.2 06/25/2010 Ot E000.8 06/25/2010 Ot E029.9 06/25/2010 Ot E849.0 06/25/2010 Ot E927.8 07/24/2010 DEONDRE SHAFFER MD 595.1 CHRONIC INTERSTITIAL CYSTITIS 07/24/2010 DEONDRE SHAFFER MD 595.1 CHRONIC INTERSTITIAL CYSTITIS 07/24/2010 DEONDRE SHAFFER MD 595.1 CHRONIC INTERSTITIAL CYSTITIS 07/24/2010 DEONDRE SHAFFER MD 595.1 CHRONIC INTERSTITIAL CYSTITIS 07/24/2010 DEONDRE SHAFFER MD 595.1 CHRONIC INTERSTITIAL CYSTITIS 07/24/2010 DEONDRE SHAFFER MD 595.1 CHRONIC INTERSTITIAL CYSTITIS 07/24/2010 DEONDRE SHAFFER MD 595.1 CHRONIC INTERSTITIAL CYSTITIS 07/24/2010 GENEVA TURCIOS APRN 595.1 CHRONIC INTERSTITIAL CYSTITIS 07/24/2010 SANDRINE STEVEN APRN R 595.1 CHRONIC INTERSTITIAL CYSTITIS 07/24/2010 DEONDRE SHAFFER MD 595.1 CHRONIC INTERSTITIAL CYSTITIS 07/24/2010 SANDRINE STEVEN APRN 595.1 CHRONIC INTERSTITIAL CYSTITIS 01/24/2011 Ot 831.01 01/24/2011 Ot 959.2 01/24/2011 Ot E000.8 01/24/2011 Ot E849.0 01/24/2011 Ot E928.9 02/18/2011 DEONDRE SHAFFER MD.4 1 PAIN IN JOINT INVOLVING SHOULDER REGION 02/18/2011 DEONDRE SHAFFER MD.4 1 PAIN IN JOINT INVOLVING SHOULDER REGION 02/18/2011 DEONDRE SHAFFER MD.4 1 PAIN IN JOINT INVOLVING SHOULDER REGION 02/18/2011 DEONDRE SHAFFER MD.4 1 PAIN IN JOINT INVOLVING SHOULDER REGION 02/18/2011 DEONDRE SHAFFER MD.4 1 PAIN IN JOINT INVOLVING SHOULDER REGION 02/18/2011 DEONDRE SHAFFER MD.4 1 PAIN IN JOINT INVOLVING SHOULDER REGION 02/18/2011 DEONDRE SHAFFER MD.4 1 PAIN IN JOINT INVOLVING SHOULDER REGION 02/18/2011 GENEVA TURCIOS APRN 719.41 PAIN IN JOINT INVOLVING SHOULDER REGION 02/18/2011 SANDRINE STEVEN APRN 719.41 PAIN IN JOINT INVOLVING SHOULDER REGION 02/18/2011 DEONDRE SHAFFER MD 719.4 1 PAIN IN JOINT INVOLVING SHOULDER REGION 02/18/2011 SANDRINE STEVEN APRN 719.41 PAIN IN JOINT INVOLVING SHOULDER REGION 04/14/2012 Ot 840.9 04/14/2012 Ot 959.2 04/14/2012 Ot E000.8 04/14/2012 Ot E029.9 04/14/2012 Ot E849.0 04/14/2012 Ot E928.9 04/28/2012 DEONDRE SHAFFER MD.4 0 ARTHRAIGIA UNSPEC 04/28/2012 DEONDRE SHAFFER MD.4 0 ARTHRAIGIA UNSPEC 04/28/2012 DEONDRE SHAFFER MD.4 0 ARTHRAIGIA UNSPEC 04/28/2012 DEONDRE SHAFFER MD.4 0 ARTHRAIGIA UNSPEC 04/28/2012 DEENA ROTH, DEONDRE 719.4 0 ARTHRAIGIA UNSPEC 04/28/2012 DEENA ROTH, DEONDRE 719.4 0 ARTHRAIGIA UNSPEC 04/28/2012 DEENA ROTH, DEONDRE 719.4 0 ARTHRAIGIA UNSPEC 04/28/2012 TAM LEON, GENEVA Yung 719.40 ARTHRAIGIA UNSPEC 04/28/2012 TENISHA LEON, SANDRINE R 719.40 ARTHRAIGIA UNSPEC 04/28/2012 DEONDRE SHAFFER MD 719.4 0 ARTHRAIGIA UNSPEC 04/28/2012 TENISHA LEON, SANDRINE R 719.40 ARTHRAIGIA UNSPEC 10/27/2012 Ot 305.20 10/27/2012 Ot 305.60 10/27/2012 Ot 305.70 10/27/2012 Ot 787.02 10/28/2012 Ot 292.0 10/28/2012 Ot 787.03 10/28/2012 Ot 789.00 01/07/2013 DEONDRE SHAFFER MD 401.9 UNSPECIFIED ESSENTIAL HYPERTENSION 01/07/2013 DEENA ROTH, DEONDRE 401.9 UNSPECIFIED ESSENTIAL HYPERTENSION 01/07/2013 DEENA ROTH, DEONDRE 401.9 UNSPECIFIED ESSENTIAL HYPERTENSION 01/07/2013 DEENA ROTH, DEONDRE 401.9 UNSPECIFIED ESSENTIAL HYPERTENSION 01/07/2013 DEENA ROTH, DEONDRE 401.9 UNSPECIFIED ESSENTIAL HYPERTENSION 01/07/2013 DEONDRE SHAFFER MD 401.9 UNSPECIFIED ESSENTIAL HYPERTENSION 01/07/2013 TENISHA LEON, SANDRINE R 401.9 UNSPECIFIED ESSENTIAL HYPERTENSION 01/07/2013 DEONDRE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 HEMOGLOBIN 11.0 g/dL 12.0 - 16.0 HEMATOCRIT 34.4 % 35.0 - 48.0 MCV 91.0 fl 78.0 - 95.0 MCH 29.1 pg 25.0 - 35.0 MCHC 32.0 g/dL 32.0 - 36.0 RDW 13.9 % 11.5 - 14.5 PLATELETS 333 10^3uL 130 - 400 %NEUTROPHILS 48.1 % 35.0 - 75.0 %LYMPHOCYTES 36.7 % 20.0 - 53.0 %MONOCYTES 11.1 % 0.0 - 10.0 %EOSINOPHILS 3.10 % 0.00 - 8.00 %BASOPHILS 0.50 % 0.00 - 2.00 %IG 0.50 % 0.00 - 0.90 #NEUTROPHILS 3.71 1.80 - 7.50 #LYMPHOCYTES 2.83 0.70 - 3.10 #MONOCYTES 0.86 0.20 - 0.90 #EOSINOPHILS 0.24 0.00 - 0.50 #BASOPHILS 0.04 0.00 - 0.10 #IG 0.04 0.00 - 0.03 MANUAL DIFF NOT INDICATED RBC MORPH NOT INDICATED %NRBC 0.00 % 0.00 - 10.00 #NRBC 0.00 0.40 - 1.10 COMP METABOLIC PROFILE - 06/19/18 14:11 COMPMETABOLICPROFILE FASTING SPECIMEN? NO FINGER STICK NO SODIUM 138 mmol/L 136 - 145 POTASSIUM 4.3 mmol/L 3.5 - 4.8 CHLORIDE 102 mmol/L 98 - 107 TOTAL CO2 27 mmol/L 21 - 32 GLUCOSE 108 mg/dL 65 - 110 BUN 10 mg/dL 7 - 18 CREATININE 0.8 mg/dL 0.6 - 1.0 TOTAL BILI 0.2 mg/dL 0.0 - 1.0 DIRECT BILI 0.0 mg/dL 0.0 - 0.3 INDIRECT BILI 0.2 mg/dl 0.1 - 1.0 ALKALINE PHOS 81 U/L 50 - 136 SGPT/ALT 24 U/L 12 - 78 SGOT/AST 22 U/L 15 - 45 TOTAL PROTEIN 7.0 g/dL 6.4 - 8.2 ALBUMIN 3.6 g/dL 3.4 - 5.6 CALCIUM 9.2 mg/dL 8.5 - 10.0 AGE 42 YEARS GFR 83 ml/min/1.7 eGFR >60 mL/min/1.7 GFR >60 mL/min/1.7 UA WITH MICROSCOPY/CULTURE IF INDICATED - 05/08/18 11:45 URINE SAMPLE RANDOM U COLOR Yellow NORMAL: STRAW-YELLOW U TURBIDITY Clear NORMAL: CLEAR U SP GRAVITY 1.015 NORMAL: 1.005-1.0 30 U NITRITE Negative NORMAL: NEGATIVE U pH 7.0 NORMAL: 5.0-8.0 U PROTEIN Negative NORMAL: NEGATIVE U GLUCOSE Negative NORMAL: NEGATIVE U KETONES Negative NORMAL: NEGATIVE U UROBILINOGEN 0.2 NORMAL: 0.2 mg/ dl U BILIRUBIN Negative NORMAL: NEGATIVE U BLOOD Negative NORMAL: NEG - TRACE U LEUKO GISELL Trace NORMAL: NEGATIVE U MICROSCOPIC See Below U WBC 0-2 NORMAL: 0-5 U RBC NONE SEEN NORMAL: 0-4 U EPITHELIAL MODERATE NORMAL: NONE SEEN U BACTERIA NONE SEEN NORMAL: NONE SEEN U MUCUS NEGATIVE NORMAL: NONE SEEN U CRYSTALS NONE SEEN U CASTS NONE SEEN U CULTURE SET NO Sample of Urine: 10 ML UAMICROSCOPYANDCULTUREIFINDICATED TSH - 06/19/18 14:11 TSH 0.75 mIU/L 0.46 - 4.68 COMP METABOLIC PROFILE - 06/19/18 14:11 COMPMETABOLICPROFILE Reference Lab NRG FASTING SPECIMEN? NO NRG FINGER STICK NO NRG SODIUM 138 mmol/L 136 - 145 POTASSIUM 4.3 mmol/L 3.5 - 4.8 CHLORIDE 102 mmol/L 98 - 107 TOTAL CO2 27 mmol/L 21 - 32 GLUCOSE 108 mg/dL 65 - 110 BUN 10 mg/dL 7 - 18 CREATININE 0.8 mg/dL 0.6 - 1.0 TOTAL BILI 0.2 mg/dL 0.0 - 1.0 DIRECT BILI 0.0 mg/dL 0.0 - 0.3 INDIRECT BILI 0.2 mg/dl 0.1 - 1.0 ALKALINE PHOS 81 U/L 50 - 136 SGPT/ALT 24 U/L 12 - 78 SGOT/AST 22 U/L 15 - 45 TOTAL PROTEIN 7.0 g/dL 6.4 - 8.2 ALBUMIN 3.6 g/dL 3.4 - 5.6 CALCIUM 9.2 mg/dL 8.5 - 10.0 AGE 42 YEARS NRG GFR 83 ml/min/1.7 NRG eGFR >60 mL/min/1.7 NRG GFR >60 mL/min/1.7 NRG TSH - 06/19/18 14:11 TSH 0.75 mIU/L 0.46 - 4.68 CBC WITH DIFF - 06/19/18 14:11 CBCWITHDIFF Reference Lab NRG FINGER STICK NO NRG WBC 7.7 10 4.0 - 11.0 RBC 3.78 10 4.20 - 5.40 HEMOGLOBIN 11.0 g/dL 12.0 - 16.0 HEMATOCRIT 34.4 % 35.0 - 48.0 MCV 91.0 fl 78.0 - 95.0 MCH 29.1 pg 25.0 - 35.0 MCHC 32.0 g/dL 32.0 - 36.0 RDW 13.9 % 11.5 - 14.5 PLATELETS 333 10 130 - 400 %NEUTROPHILS 48.1 % 35.0 - 75.0 %LYMPHOCYTES 36.7 % 20.0 - 53.0 %MONOCYTES 11.1 % 0.0 - 10.0 %EOSINOPHILS 3.10 % 0.00 - 8.00 %BASOPHILS 0.50 % 0.00 - 2.00 %IG 0.50 % 0.00 - 0.90 %NRBC 0.00 % 0.00 - 10.00 #NEUTROPHILS 3.71 1.80 - 7.50 #LYMPHOCYTES 2.83 0.70 - 3.10 #MONOCYTES 0.86 0.20 - 0.90 #EOSINOPHILS 0.24 0.00 - 0.50 #BASOPHILS 0.04 0.00 - 0.10 #IG 0.04 0.00 - 0.03 #NRBC 0.00 0.40 - 1.10 MANUAL DIFF NOT INDICATED NRG RBC MORPH NOT INDICATED NRG Complete urinalysis with reflex to cultu re - 06/10/19 05:02 Urine color determination JENNIFFER NRG Urine clarity determination SLIGHTLY CLOUDY NRG Urine pH measurement by test strip 6 5-9 Specific gravity of urine by test strip 1.025 1.016-1.022 Urine protein assay by test strip, semi-quantitative 3+ NEGATIVE Urine glucose detection by automated test strip NE GATIVE NEGATIVE Erythrocytes detection in urine sediment by light micr oscopy NEGATIVE NEGATIVE Urine ketones detection by automated test strip 2+ NEGATIVE Urine nitrite detection by test strip NEGATIVE NEGATIVE Urine total bilirubin detection by test strip 2+ NEGATIVE Urine urobilinogen measurement by automated test strip (mass/volume) 4 mg/dL NORMAL Urine leukocyte esterase detection by dipstick 2+ NEGATIVE Automated urine sediment erythrocyte cou nt by microscopy (number/high power field) [HPF] NRG Automated urine sediment leukocyte count by microscopy (number/high power field) [HPF] NRG Bacteria detection in urine sediment by light microsco py TRACE NRG Squamous epithelial cells detection in u rine sediment by light microscopy 5-10 NRG Crystals detection in urine sediment by light microsco py PRESENT NRG Casts detection in urine sediment by light microscopy NONE NRG Mucus detection in urine sediment by light microscopy SMALL NRG Complete urinalysis with reflex to culture NO NRG Amorphous sediment detection in urine sediment by ligh t microscopy FEW ROSY URATES NRG Urine beta human chorionic gonadotropin (hCG) measurement - 06/10/19 05:02 Urine beta human chorionic gonadotropin (hCG) measurem ent NEGATIVE NEGATIVE Urine drug screening test - 06/10/19 05: 02 Urine phencyclidine detection by screening method NEGATIVE NEGATIVE Urine benzodiazepines detection by screening method NEGATIVE NEGATIVE Urine cocaine detection NEGATIVE NEGATI VE Urine amphetamines detection by screening method N EGATIVE NEGATIVE Urine methamphetamine detection by screening method NEGATIVE NEGATIVE Urine cannabinoids detection by screening method P OSITIVE NEGATIVE Urine opiates detection by screening method NEGATI VE NEGATIVE Urine barbiturates detection NEGATIVE N EGATIVE Screening urine tricyclic antidepressants detection POSITIVE NEGATIVE Urine methadone detection by screening method NEGA TIVE NEGATIVE Urine oxycodone detection NEGATIVE NEGA TIVE Urine propoxyphene detection NEGATIVE N EGATIVE Complete blood count (CBC) with automate d white blood cell (WBC) differential - 06/10/19 05:40 Blood leukocytes automated count (number/volume) 11.0 10*3/uL 4.3-11.0 Blood erythrocytes automated count (number/volume) 5.10 10*6/uL 4.35-5.85 Venous blood hemoglobin measurement (mass/volume) 15.6 g/dL 11.5-16.0 Blood hematocrit (volume fraction) 45 % 35-52 Automated erythrocyte mean corpuscular volume 88 [ foz_us] 80-99 Automated erythrocyte mean corpuscular h emoglobin (mass per erythrocyte) 31 pg 25-34 Automated erythrocyte mean corpuscular h emoglobin concentration measurement (mass/volume) 35 g/dL 32-36 Automated erythrocyte distribution width ratio 13. 2 % 10.0- 14.5 Automated blood platelet count (count/volume) 418 10*3/uL 130-400 Automated blood platelet mean volume measurement 9.8 [foz_us] 7.4-10.4 Automated blood neutrophils/100 leukocytes 69 % 42-75 Automated blood lymphocytes/100 leukocytes 19 % 12-44 Blood monocytes/100 leukocytes 10 % 0-12 Automated blood eosinophils/100 leukocytes 1 % 0-10 Automated blood basophils/100 leukocytes 0 % 0-10 Blood neutrophils automated count (number/volume) 7.6 10*3 1.8-7.8 Blood lymphocytes automated count (number/volume) 2.1 10*3 1.0-4.0 Blood monocytes automated count (number/volume) 1. 1 10*3 0.0-1.0 Automated eosinophil count 0.1 10*3/uL 0 .0-0.3 Automated blood basophil count (count/volume) 0.0 10*3/uL 0.0-0.1 Comprehensive metabolic panel - 06/10/19 05:40 Serum or plasma sodium measurement (moles/volume) 136 mmol/L 135-145 Serum or plasma potassium measurement (moles/volume) 3.5 mmol/L 3.6-5.0 Serum or plasma chloride measurement (moles/volume) 100 mmol/L 98-107 Carbon dioxide 18 mmol/L 21-32 Serum or plasma anion gap determination (moles/volume) 18 mmol/L 5-14 Serum or plasma urea nitrogen measurement (mass/volume ) 19 mg/dL 7-18 Serum or plasma creatinine measurement (mass/volume) 0.90 mg/dL 0.60-1.30 Serum or plasma urea nitrogen/creatinine mass ratio 21 NRG Serum or plasma creatinine measurement w ith calculation of estimated glomerular filtration rate > NRG Serum or plasma glucose measurement (mass/volume) 121 mg/dL 70-105 Serum or plasma calcium measurement (mass/volume) 10.8 mg/dL 8.5-10.1 Serum or plasma total bilirubin measurement (mass/volu me) 0.7 mg/dL 0.1-1.0 Serum or plasma alkaline phosphatase suly surement (enzymatic activity/volume) 102 U/L 40-136 Serum or plasma aspartate aminotransfera se measurement (enzymatic activity/volume) 19 U/L 5-34 Serum or plasma alanine aminotransferase measurement (enzymatic activity/volume) 25 U/L 0-55 Serum or plasma protein measurement (mass/volume) 9.6 g/dL 6.4-8.2 Serum or plasma albumin measurement (mass/volume) 5.3 g/dL 3.2-4.5 Serum or plasma salicylates measurement (mass/volume) - 06/10/19 05:40 Serum or plasma salicylates measurement (mass/volume) < mg/dL 5.0-20.0 Serum or plasma acetaminophen measuremen t (mass/volume) - 06/10/19 05:40 Serum or plasma acetaminophen measurement (mass/volume ) < ug/mL 10-30 Serum or plasma ethanol measurement (mas s/volume) - 06/10/19 05:40 Serum or plasma ethanol measurement (mass/volume) < mg/dL <10 PDM - ATS (PROFILE 8 WITH CONFIRMATION) - 07/05/19 12:16 Creatinine 23.4 mg/dL > or = 20.0 pH 7.0 4.5-9.0 Oxidant NEGATIVE mcg/mL <200 Amphetamines NEGATIVE ng/mL <500 medMATCH Amphetamines CONSISTENT NRG Benzodiazepines POSITIVE ng/mL <100 Marijuana Metabolite POSITIVE ng/mL <20 Cocaine Metabolite NEGATIVE ng/mL <150 medMATCH Cocaine Metab CONSISTENT NRG Opiates NEGATIVE ng/mL <100 medMATCH Opiates CONSISTENT NRG Oxycodone NEGATIVE ng/mL <100 medMATCH Oxycodone CONSISTENT NRG COMMENT NRG Buprenorphine NEGATIVE ng/mL <5 MDMA NEGATIVE ng/mL <500 medMATCH MDMA CONSISTENT NRG Alcohol Metabolites NEGATIVE ng/mL <500 medMATCH Alcohol Metab CONSISTENT NRG 6 Acetylmorphine NEGATIVE ng/mL <10 medMATCH 6 Acetylmorphine CONSISTENT NR G Alphahydroxyalprazolam NEGATIVE ng/mL <25 medMATCH aOH alprazolam CONSISTENT NRG Alphahydroxymidazolam NEGATIVE ng/mL < 50 medMATCH aOH midazolam CONSISTENT NRG Alphahydroxytriazolam NEGATIVE ng/mL < 50 medMATCH aOH triazolam CONSISTENT NRG Aminoclonazepam NEGATIVE ng/mL <25 medMATCH Aminoclonazepam CONSISTENT NRG Hydroxyethylflurazepam NEGATIVE ng/mL <50 medMATCH OH,Et flurazepam CONSISTENT NR G Lorazepam NEGATIVE ng/mL <50 medMATCH Lorazepam CONSISTENT NRG Nordiazepam NEGATIVE ng/mL <50 medMATCH Nordiazepam CONSISTENT NRG Oxazepam 171 ng/mL <50 medMATCH Oxazepam INCONSISTENT NRG Temazepam NEGATIVE ng/mL <50 medMATCH Temazepam CONSISTENT NRG medMATCH Buprenorphine CONSISTENT NRG Marijuana Metabolite 18 ng/mL <5 medMATCH Marijuana Metab INCONSISTENT N RG PDM - ATS (PROFILE 8 WITH CONFIRMATION) - 07/30/19 12:53 Prescribed Drug 1 Suboxone(TM) NRG Creatinine 76.4 mg/dL > or = 20.0 pH 7.8 4.5-9.0 Oxidant NEGATIVE mcg/mL <200 Amphetamines NEGATIVE ng/mL <500 medMATCH Amphetamines CONSISTENT NRG Benzodiazepines NEGATIVE ng/mL <100 medMATCH Benzodiazepines CONSISTENT NRG Marijuana Metabolite POSITIVE ng/mL <20 Cocaine Metabolite NEGATIVE ng/mL <150 medMATCH Cocaine Metab CONSISTENT NRG Opiates NEGATIVE ng/mL <100 medMATCH Opiates CONSISTENT NRG Oxycodone NEGATIVE ng/mL <100 medMATCH Oxycodone CONSISTENT NRG COMMENT NRG Buprenorphine POSITIVE ng/mL <5 Buprenorphine 24 ng/mL <2 medMATCH Buprenorphine CONSISTENT NR G Norbuprenorphine 68 ng/mL <2 medMATCH Norbuprenorphine CONSISTENT NR G MDMA NEGATIVE ng/mL <500 medMATCH MDMA CONSISTENT NRG Alcohol Metabolites NEGATIVE ng/mL <500 medMATCH Alcohol Metab CONSISTENT NRG 6 Acetylmorphine NEGATIVE ng/mL <10 medMATCH 6 Acetylmorphine CONSISTENT NR G Marijuana Metabolite 44 ng/mL <5 medMATCH Marijuana Metab INCONSISTENT N PDM - ATS (PROFILE 8 WITH CONFIRMATION) - 08/19/19 09:07 Prescribed Drug 1 Buprenorphine NRG Creatinine 162.8 mg/dL > or = 20.0 pH 6.4 4.5-9.0 Oxidant NEGATIVE mcg/mL <200 Amphetamines NEGATIVE ng/mL <500 medMATCH Amphetamines CONSISTENT NRG Benzodiazepines NEGATIVE ng/mL <100 medMATCH Benzodiazepines CONSISTENT NRG Marijuana Metabolite POSITIVE ng/mL <20 Cocaine Metabolite NEGATIVE ng/mL <150 medMATCH Cocaine Metab CONSISTENT NRG Opiates NEGATIVE ng/mL <100 medMATCH Opiates CONSISTENT NRG Oxycodone NEGATIVE ng/mL <100 medMATCH Oxycodone CONSISTENT NRG COMMENT NRG Buprenorphine POSITIVE ng/mL <5 Buprenorphine 75 ng/mL <2 medMATCH Buprenorphine CONSISTENT NR G Norbuprenorphine 148 ng/mL <2 medMATCH Norbuprenorphine CONSISTENT NR G MDMA NEGATIVE ng/mL <500 medMATCH MDMA CONSISTENT NRG Alcohol Metabolites NEGATIVE ng/mL <500 medMATCH Alcohol Metab CONSISTENT NRG 6 Acetylmorphine NEGATIVE ng/mL <10 medMATCH 6 Acetylmorphine CONSISTENT NR G Marijuana Metabolite 195 ng/mL <5 medMATCH Marijuana Metab INCONSISTENT N RG PDM - ATS (PROFILE 8 WITH CONFIRMATION) - 10/19/19 12:14 Prescribed Drug 1 Buprenorphine NRG Creatinine 40.6 mg/dL > or = 20.0 pH 7.5 4.5-9.0 Oxidant NEGATIVE mcg/mL <200 Amphetamines NEGATIVE ng/mL <500 medMATCH Amphetamines CONSISTENT NRG Benzodiazepines NEGATIVE CONFIRMED ng/mL <100 Marijuana Metabolite POSITIVE ng/mL <20 Cocaine Metabolite POSITIVE ng/mL <150 Opiates NEGATIVE ng/mL <100 medMATCH Opiates CONSISTENT NRG Oxycodone NEGATIVE ng/mL <100 medMATCH Oxycodone CONSISTENT NRG COMMENT NRG Buprenorphine POSITIVE ng/mL <5 Buprenorphine 9 ng/mL <2 medMATCH Buprenorphine CONSISTENT NR G Norbuprenorphine 22 ng/mL <2 medMATCH Norbuprenorphine CONSISTENT NR G MDMA NEGATIVE ng/mL <500 medMATCH MDMA CONSISTENT NRG Alcohol Metabolites NEGATIVE ng/mL <500 medMATCH Alcohol Metab CONSISTENT NRG 6 Acetylmorphine NEGATIVE ng/mL <10 medMATCH 6 Acetylmorphine CONSISTENT NR G Alphahydroxyalprazolam NEGATIVE ng/mL <25 medMATCH aOH alprazolam CONSISTENT NRG Alphahydroxymidazolam NEGATIVE ng/mL < 50 medMATCH aOH midazolam CONSISTENT NRG Alphahydroxytriazolam NEGATIVE ng/mL < 50 medMATCH aOH triazolam CONSISTENT NRG Aminoclonazepam NEGATIVE ng/mL <25 medMATCH Aminoclonazepam CONSISTENT NRG Hydroxyethylflurazepam NEGATIVE ng/mL <50 medMATCH [place],Et flurazepam CONSISTENT NR G Lorazepam NEGATIVE ng/mL <50 medMATCH Lorazepam CONSISTENT NRG Nordiazepam NEGATIVE ng/mL <50 medMATCH Nordiazepam CONSISTENT NRG Oxazepam NEGATIVE ng/mL <50 medMATCH Oxazepam CONSISTENT NRG Temazepam NEGATIVE ng/mL <50 medMATCH Temazepam CONSISTENT NRG Prescribed Drug 2 Buprenorphine NRG Marijuana Metabolite 103 ng/mL <5 medMATCH Marijuana Metab INCONSISTENT N RG Benzoylecgonine 279 ng/mL <100 medMATCH Benzoylecgonine INCONSISTENT N RG PDM - ATS (PROFILE 8 WITH CONFIRMATION) - 01/25/20 14:04 Prescribed Drug 1 Buprenorphine NRG Creatinine 15.8 mg/dL > or = 20.0 pH 6.9 4.5-9.0 Oxidant NEGATIVE mcg/mL <200 Amphetamines NEGATIVE CONFIRMED ng/mL <5 00 Benzodiazepines NEGATIVE ng/mL <100 medMATCH Benzodiazepines CONSISTENT NRG Marijuana Metabolite POSITIVE ng/mL <20 Cocaine Metabolite NEGATIVE ng/mL <150 medMATCH Cocaine Metab CONSISTENT NRG Opiates NEGATIVE ng/mL <100 medMATCH Opiates CONSISTENT NRG Oxycodone NEGATIVE ng/mL <100 medMATCH Oxycodone CONSISTENT NRG COMMENT NRG Buprenorphine NEGATIVE ng/mL <5 MDMA NEGATIVE ng/mL <500 medMATCH MDMA CONSISTENT NRG Alcohol Metabolites NEGATIVE ng/mL <500 medMATCH Alcohol Metab CONSISTENT NRG 6 Acetylmorphine NEGATIVE ng/mL <10 medMATCH 6 Acetylmorphine CONSISTENT NR G Amphetamine NEGATIVE ng/mL <250 medMATCH Amphetamine CONSISTENT NRG Methamphetamine NEGATIVE ng/mL <250 medMATCH Methamphetamine CONSISTENT NRG medMATCH Buprenorphine INCONSISTENT NRG Specific [place] 1.004 > or = 1.003 Marijuana Metabolite 97 ng/mL <5 medMATCH Marijuana Metab INCONSISTENT N RG PDM - AMPHETAMINES W/ REFLEX d/l ISOMERS - 02/08/20 13:25 Prescribed Drug 1 Buprenorphine NRG COMMENT NRG Amphetamine NEGATIVE ng/mL <250 medMATCH Amphetamine CONSISTENT NRG Methamphetamine NEGATIVE ng/mL <250 medMATCH Methamphetamine CONSISTENT NRG Complete urinalysis with reflex to cultu re - 02/24/20 11:42 Urine color determination YELLOW NRG Urine clarity determination CLEAR NR G Urine pH measurement by test strip 7.0 5-9 Specific gravity of urine by test strip <= 1.016-1.022 Urine protein assay by test strip, semi-quantitative NEGATIVE NEGATIVE Urine glucose detection by automated test strip NE GATIVE NEGATIVE Erythrocytes detection in urine sediment by light micr oscopy NEGATIVE NEGATIVE Urine ketones detection by automated test strip NE GATIVE NEGATIVE Urine nitrite detection by test strip NEGATIVE NEGATIVE Urine total bilirubin detection by test strip NEGA TIVE NEGATIVE Urine urobilinogen measurement by automated test strip (mass/volume) 0.2 mg/dL < = 1.0 Urine leukocyte esterase detection by dipstick TRA CE NEGATIVE Automated urine sediment erythrocyte cou nt by microscopy (number/high power field) NONE NRG Automated urine sediment leukocyte count by microscopy (number/high power field) RARE NRG Bacteria detection in urine sediment by light microsco py TRACE NRG Squamous epithelial cells detection in u rine sediment by light microscopy 5-10 NRG Crystals detection in urine sediment by light microsco py PRESENT NRG Casts detection in urine sediment by light microscopy NONE NRG Mucus detection in urine sediment by light microscopy NEGATIVE NRG Complete urinalysis with reflex to culture NO NRG Urine drug screening test - 02/24/20 11: 42 Urine phencyclidine detection by screening method NEGATIVE NEGATIVE Urine benzodiazepines detection by screening method NEGATIVE NEGATIVE Urine cocaine detection NEGATIVE NEGATI VE Urine amphetamines detection by screening method N EGATIVE NEGATIVE Urine methamphetamine detection by screening method NEGATIVE NEGATIVE Urine cannabinoids detection by screening method N EGATIVE NEGATIVE Urine opiates detection by screening method NEGATI VE NEGATIVE Urine barbiturates detection NEGATIVE N EGATIVE Screening urine tricyclic antidepressants detection POSITIVE NEGATIVE Urine methadone detection by screening method NEGA TIVE NEGATIVE Urine oxycodone detection NEGATIVE NEGA TIVE Urine propoxyphene detection NEGATIVE N EGATIVE Complete blood count (CBC) with automate d white blood cell (WBC) differential - 02/24/20 12:04 Blood leukocytes automated count (number/volume) 11.4 10*3/uL 4.3-11.0 Blood erythrocytes automated count (number/volume) 4.67 10*6/uL 4.35-5.85 Venous blood hemoglobin measurement (mass/volume) 13.6 g/dL 11.5-16.0 Blood hematocrit (volume fraction) 41 % 35-52 Automated erythrocyte mean corpuscular volume 88 [ foz_us] 80-99 Automated erythrocyte mean corpuscular h emoglobin (mass per erythrocyte) 29 pg 25-34 Automated erythrocyte mean corpuscular h emoglobin concentration measurement (mass/volume) 33 g/dL 32-36 Automated erythrocyte distribution width ratio 12. 6 % 10.0- 14.5 Automated blood platelet count (count/volume) 413 10*3/uL 130-400 Automated blood platelet mean volume measurement 9.6 [foz_us] 7.4-10.4 Automated blood neutrophils/100 leukocytes 74 % 42-75 Automated blood lymphocytes/100 leukocytes 18 % 12-44 Blood monocytes/100 leukocytes 6 % 0-12 Automated blood eosinophils/100 leukocytes 2 % 0-10 Automated blood basophils/100 leukocytes 0 % 0-10 Blood neutrophils automated count (number/volume) 8.4 10*3 1.8-7.8 Blood lymphocytes automated count (number/volume) 2.0 10*3 1.0-4.0 Blood monocytes automated count (number/volume) 0. 7 10*3 0.0-1.0 Automated eosinophil count 0.2 10*3/uL 0 .0-0.3 Automated blood basophil count (count/volume) 0.0 10*3/uL 0.0-0.1 Radiology Report from [id number] on 014 13:44:00 Final ReportADMITTING DIAGNOSIS: Right ureteral stone BILATERAL RETROGRADESUROGRAPHY RETROGRADE (SURG) - 02/18/2014 [facility] RESULT: INDICATION: RetrogradesIMPRESSION: Bilateral ureteral retrograde urography wasperformed by Dr. Escudero.IN: [id number]: 0855Actual fluoro time: 1 minute and 3 secondsKV: 90MA: 4.0Dictated by:Dictated on workstation # [id number] BY: RADIOLOGY PROCESSOR, ELECTRONICALLY SIGNED BY: RADIOLOGY Elizabeth GUO Feb 18 2014 6:52PT PJE: Mar 18 2014 1:41PS Mar 18 2014 1:41P Encounters ACCT No. Visit Date/Time Discharge Status Pt. Type Provider Facility Loc./Unit Complaint [id number] 09/08/2018 09:50:00 09/08/2018 09:50: 00 DIS Outpatient SUMAN[facility] DON [id number] 06/19/2018 14:44:00 06/19/2018 14:44: 00 DIS Outpatient [facility]AN[facility] DON Harriet [id number] 05/08/2018 10:07:00 05/08/2018 14:10: 00 DIS Emergency [place] [facility] 042 [id number] 06/10/2019 04:52:00 019 12:05:00 DIS Outpatient BENITO ROTH, DANIEL Gomes [facility] ER SUICIDAL THOUGH TS [id number] 04/16/2018 07:41:00 018 10:48:00 DIS Emergency TERRENCE BOWENS MD [facility] ER NAUSEA [id number] 03/16/2018 10:51:00 17:20:00 DIS Inpatient KASEY ARROYO DO, V [facility] ICU SUICIDE ATTEMPT;OVER DO SE [id number] 09/08/2016 21:52:00 016 22:17:00 DIS Emergency TERRENCE BOWENS MD [facility] ER L EYE LACERATIO N [id number] 04/21/2016 05:59:00 016 07:00:00 DIS Emergency TERRENCE BOWENS MD [facility] ER L SIDE RIB PAIN [id number] 02/28/2016 07:56:00 016 09:40:00 DIS Emergency СВЕТЛАНА HURT DO [facility] ER VOMITING [id number] 11/23/2015 10:31:00 016 23:59:59 CLS Emergency JON ROTH, JEFFREY Yung [facility] ER RIGHT FLANK PAIN/UTI SY MPTOMS VOMITING [id number] 11/21/2015 02:04:00 016 05:05:00 DIS Emergency BECKY WHITE DO [facility] ER VOMITING,SWEATING [id number] 04/18/2015 14:11:00 015 15:45:00 DIS Emergency MICHELLE MANCILLA APRN [facility] ER SYNCOPE/SEIZURE [id number] 11/03/2014 14:39:00 015 05:55:00 DIS Inpatient DEENA ROTH, DEONDRE Mondragon [facility] 4TH INTRACTABLE ABD PAIN N/ V [id number] 10/21/2014 06:50:00 015 10:27:00 DIS Emergency DOMINIQUE ROTH, AUGIE Carr [facility] ER ABD PAIN [id number] 05/07/2014 10:24:00 014 11:50:00 DIS Inpatient ANGELA ROTH, BEATRIZ Shirley [facility] 4TH PNEUMONIA, RIGHT LOWER LOBE [id number] 03/05/2014 10:14:00 014 12:26:00 DIS Emergency СВЕТЛАНА HURT DO [facility] ER SORE THROAT [id number] 02/16/2014 10:51:00 014 13:44:00 DIS Emergency JEFFREY PHOENIX [facility] ER RIGHT FLANK/LOWER BACK PAIN [id number] 02/13/2014 13:07:00 014 15:10:00 DIS Emergency AUGIE FOX MD [facility] ER KIDNEY STONES [id number] 02/13/2014 01:49:00 014 03:59:00 DIS Emergency BECKY WHITE DO [facility] ER BACK PAIN;NAUSEA [id number] 02/07/2014 12:20:00 13:40:00 DIS Inpatient DEONDRE SHAFFER MD [facility] 4TH DETOX; RIGHT URETERAL S TONE [id number] 01/06/2014 07:10:00 014 09:37:00 DIS Emergency AUGIE FOX MD [facility] ER POSS KIDNEY STONES/VOMI TING [id number] 01/01/2014 10:46:00 014 12:00:00 DIS Inpatient DEONDRE SHAFFER MD [facility] SURGICAL R URETERAL STONE [id number] 12/22/2013 06:35:00 014 08:25:00 DIS Emergency BECKY WHITE DO [facility] ER ABD PAIN [id number] 09/02/2013 05:45:00 013 20:50:00 DIS Inpatient [id number] 09/01/2013 04:30:00 013 08:04:00 DIS Emergency TERRENCE BOWENS MD [facility] ER VOMITING,DIARRH EA [id number] 02/23/2013 23:06:00 05/08/2 013 01:34:00 DIS Emergency [id number] 02/24/2020 12:10:00 Document Registration [id number] 11/04/2014 10:54:00 Document Registration [id number] 10/28/2012 11:24:00 Document Registration [id number] 10/27/2012 00:20:00 Document Registration [id number] 04/14/2012 11:00:00 Document Registration [id number] 01/24/2011 19:43:00 Document Registration [id number] 06/25/2010 12:33:00 Document Registration [id number] 06/09/2010 18:36:00 Document Registration [id number] 05/03/2010 19:33:00 Document Registration [id number] 04/20/2010 21:33:00 Document Registration [id number] 03/17/2018 20:18:00 8 12:17:[address] [facility] [id number] 02/08/2020 13:15:00 02/08/2020 23:59: 59 CLS Outpatient DEONDRE SHAFFER MD [facility] [facility] [id number] 02/08/2020 13:15:00 Document Registration [id number] 01/25/2020 14:00:00 Document Registration [id number] 10/19/2019 12:00:00 Document Registration [id number] 08/19/2019 08:00:00 Document Registration [id number] 07/30/2019 13:40:00 Document Registration [id number] 07/05/2019 10:20:00 Document Registration [id number] 06/06/2017 09:20:00 Document Registration [id number] 06/11/2017 17:08:00 Document Registration [id number] 02/10/2019 10:30:00 02/10/2019 23:59:5 9 CLS Outpatient FLORENCIA SUMANTH L [facility] [place] [facility] [place] [id number] 06/19/2018 14:00:00 Document Registration [id number] 09/16/2014 11:50:00 09/16/2014 23:59: 59 CLS Outpatient SANDRINE STEVEN APRN [id number] 06/09/2014 16:48:00 06/09/2014 23:59: 59 CLS Outpatient DEONDRE SHAFFER MD [id number] 04/13/2014 13:42:00 04/13/2014 23:59: 59 CLS Outpatient TENISHA LEON SANDRINE Davies [id number] 02/24/2014 06:12:00 02/24/2014 23:59: 59 CLS Outpatient DEONDRE SHAFFER MD [id number] 01/27/2014 15:12:00 01/27/2014 23:59: 59 CLS Outpatient DEONDRE SHAFFER MD [id number] 11/08/2013 08:51:00 11/08/2013 23:59: 59 CLS Outpatient DEONDRE SHAFFER MD [id number] 11/02/2013 15:55:00 11/02/2013 23:59: 59 CLS Outpatient DEONDRE SHAFFER MD [id number] 04/15/2013 13:04:00 04/15/2013 23:59: 59 CLS Outpatient DEONDRE SHAFFER MD [id number] 01/07/2013 15:17:00 01/07/2013 23:59: 59 CLS Outpatient DEONDRE SHAFFER MD [id number] 09/17/2012 11:19:00 09/17/2012 23:59: 59 CLS Outpatient DEONDRE SHAFFER MD [id number] 08/06/2012 17:45:00 08/06/2012 23:59:5 9 CLS Outpatient GENEVA TURCIOS APRN [id number] 02/18/2014 06:00:00 02/19/20 14 11:20:00 DIS Outpatient Kota ROTH, Terrence Alvarenga [facility] [id number] 06/09/2017 14:08:00 Document Registration
[2020-02-24 12:32] LABS: ALANINE AMINOTRANSFERASE 18 U/L (0-55); SALICYLATE < 5.0 MG/DL (5.0-20.0)
--- NOTE | 2020-02-24 12:38 | NUR ---
PT COMPLAINS OF HEADACHE. BP 145/114.
[2020-02-24] MEDS ORDERED: cloNIDine 0.1 MG (CATAPRES) TAB PO ONE (12:45)
--- NOTE | 2020-02-24 13:08 | NUR ---
REPORT GIVEN TO BEREKET PEREZ.
[2020-02-24 14:05] VITALS: BP 119/76
[2020-02-25] MEDS ORDERED: ATENOLOL 50 MG (TENORMIN) TAB PO SCH (09:00)
== END 2020-02-24 14:05 ==
LOC: EDUNIT# 11:09 → ER 11:11
DX: F32.9 Major depressive disorder, single episode, unspecified (principal); F41.9 Anxiety disorder, unspecified; R45.851 Suicidal ideations; I10 Essential (primary) hypertension; Z88.5 Allergy status to narcotic agent; Z88.1 Allergy status to other antibiotic agents; Z77.22 Contact with and (suspected) exposure to environmental tobacco smoke (acute) (chronic); Z80.1 Family history of malignant neoplasm of trachea, bronchus and lung; Z82.49 Family history of ischemic heart disease and other diseases of the circulatory system; Z80.6 Family history of leukemia
CPT/HCPCS: 36415; 80053; 80306; 80320; 80329; 81000; 84443; 84703; 85025; 93005

== ENCOUNTER 2023-02-12 06:34 | Emergency (ER) | payer OTHER ==
[~2023-02-12] VITALS: Ht 167 cm; Wt 83.0 kg
[~2023-02-12 06:34] MED LIST changes: +BUPR-105 PO; -BUPR150T14 PO; -CLON0.1T PO
[2023-02-12] MEDS ORDERED: FAMOTIDINE 20 MG (PEPCID) TABLET PO STA (07:07)
[2023-02-12] MEDS ORDERED: LIDOCAINE 2% VISCOUS 15 ML UDC PO ONE (07:15)
[2023-02-12] MEDS ORDERED: VENlafaxine XR 75 MG (EFFEXOR XR) CAP PO ONE (07:15)
[2023-02-12] MEDS ORDERED: PANTOPRAZOLE 40 MG (PROTONIX) TAB PO ONE (07:15)
[2023-02-12] MEDS ORDERED: GABAPENTIN 400 MG (NEURONTIN) CAP PO ONE (07:15)
[2023-02-12] MEDS ORDERED: ANTACID SUSP 30 ML UDC (MYLANTA) PO ONE (07:15)
--- NOTE | 2023-02-12 07:17 | ED General ---
General Chief Complaint: Abdominal/GI Problems Stated Complaint: ABD PAIN/VOMITING Nursing Triage Note: PATIENT VERBALIZED ABD PAIN X2 DAYS. STATES N/V/D, INDEGESTION. PATIENT STATES GOING THROUGH WITHDRAWL SUBOXONE DUE TO HER MEDS BEING STOLEN. PATIENT STATES SHE RELAPSED AND DID METH AND WEED A "COUPLE TIMES" THIS WEEKEND Source of Information: Patient Exam Limitations: No Limitations History of Present Illness Date Seen by Provider: Feb 12, 2023 Time Seen by Provider: 06:48 Initial Comments Here with report of being out of her medications since they were stolen this weekend. Does admit to using methamphetamine and marijuana this weekend. She went to Dr. Bradford to see if she can get some help. 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 She has been in [place] and is on Suboxone therapy. That was stolen as well. She is trying to get represcribe the Suboxone. She does report insomnia now as well as GI upset. She does report reflux disease and states that she has had an ulcer in the past. She is very open honest about what is going on currently and her concerns. She reports intent to stay off of drugs and is just asking for help. She had prescriptions for Seroquel, gabapentin and Effexor stolen as well. She has not had any of those medicines for the last 4 days. Timing/Duration: 3-4 Days Severity: Mild, Moderate Allergies and Home Medications Allergies Coded Allergies: levofloxacin (Unverified Allergy, Mild, HIVES, 04/30/09) morphine (Verified Allergy, Unknown, MAYBE HIVES BUT PT NOT SURE, 10/30/08) Patient Home Medication List Home Medication List Reviewed: Yes Atenolol (Atenolol) 50 Mg Tablet, 50 MG PO DAILY, (Reported) Entered as Reported by: HERMELINDA YUSUF on 03/16/18932 Bupropion HCl (Bupropion HCl Sr) 150 Mg Tablet.er, 150 MG PO BID, (Reported) Entered as Reported by: HERMELINDA YUSUF on 03/16/18932 Buspirone HCl (Buspirone HCl) 15 Mg Tablet, 15 MG PO TID, (Reported) Entered as Reported by: HERMELINDA YUSUF on 03/16/18932 Clonidine HCl (Clonidine HCl) 0.1 Mg Tablet, 0.1 MG PO BID, (Reported) Entered as Reported by: AURELIO CARPENTER on 04/21/16 0608 Gabapentin (Gabapentin) 800 Mg Tablet, 800 MG PO QID, (Reported) Entered as Reported by: REHAN WALSH on 03/17/18 0939 Gabapentin (Gabapentin) 800 Mg Tablet, 800 MG PO TID Prescribed by: NEREYDA BOWENS on 02/12/23 0721 Ondansetron (Zofran Odt) 8 Mg Tab.rapdis, 8 MG SL Q4H PRN for NAUSEA/VOMITING- 1ST LINE Prescribed by: KASEY ARROYO on 03/17/18 1002 Pantoprazole Sodium (Pantoprazole Sodium) 40 Mg Tablet.dr, 40 MG PO DAILY Prescribed by: NEREYDA BOWENS on 02/12/23 0721 Quetiapine Fumarate (Seroquel Xr) 300 Mg Tab.er.24h, 300 MG PO BID, (Reported) Entered as Reported by: AURELIO CARPENTER on 04/21/16 0608 Trazodone HCl (Trazodone HCl) 100 Mg Tablet, 100 MG PO HS, (Reported) Entered as Reported by: ASHISH CRUZ on 03/16/18 1725 Review of Systems Review of Systems Constitutional: No chills; diaphoresis; No fever Respiratory: no symptoms reported Cardiovascular: no symptoms reported Gastrointestinal: abdominal pain (Epigastric); No nausea, No vomiting Genitourinary: no symptoms reported Psychiatric/Neurological: Anxiety Past Wxnqnwb-Tlggre-Gzwkbd Hx Patient Social History Tobacco Use?: No Immunizations Up To Date Tetanus Booster (TDap): More than 5yrs PED Vaccines UTD: Yes Influenza Vaccine Up-to-Date: Yes; Up-to-Date First/Initial COVID19 Vaccinat: 2020 Second COVID19 Vaccination Dawson: 2020 Seasonal Allergies Seasonal Allergies: No Past Medical History Surgeries: Yes (EGD. 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 Sexually Transmitted Disease: No HIV/AIDS: No Genitourinary: Yes Kidney Stones, UTI-Chronic Gastrointestinal: Yes Ulcer Musculoskeletal: No (CHRONIC SHOULDER PAIN) Fibromyalgia Endocrine: No HEENT: No Loss of Vision: Denies Hearing Impairment: Denies Cancer: No Psychosocial: Yes (POLYSUBSTANCE ABUSE) Anxiety, Bipolar, Depression Integumentary: Yes (arms and elbows) Psoriasis Blood Disorders: No Family Medical History Reviewed Nursing Family Hx Cancer GRANDMOTHERS, Onset:Unknown (LUNG CA, LEUKEMIA) Congenital heart disease GRANDMOTHERS, Onset:60 years & older Family history: Diabetes mellitus GRANDMOTHERS Family history: Hypertension 03 FATHER, Onset:Unknown 03 MOTHER 09 BROTHER No Family History of: AIDS Abdominal aortic aneurysm Abdominal aortic aneurysm Patel's disease Lamoure's disease Alcoholism Aphasia Cancer of colon Cataract Chest pain Congestive heart failure Cystic fibrosis Dementia Dysphagia Dysphasia Family history: Alzheimer's disease Family history: Arthritis Family history: Asthma Family history: Breast disease Family history: Cardiovascular disease Family history: Coronary thrombosis Family history: Gastrointestinal disease Family history: Glaucoma Family history: Osteoporosis Family history: Thyroid disorder Fibrocystic disease of breast Gastroenteritis Headache Hearing loss Heart disease Hereditary disease History of - anemia History of - disorder History of - respiratory disease History of drug abuse Human immunodeficiency virus (HIV) seropositivity Hypercholesterolemia Infertile Kidney disease Malignant neoplasm of lung Myocardial infarction Parkinson's disease Prostate cancer Psychotic disorder Seizure disorder Stroke Tuberculosis Visual impairment Heart Disease, Diabetes, GI Disease, Hypertension, Renal Disease Physical Exam Vital Signs Vital Signs - First Documented 02/12/23 06:45 Temp 36.8 Pulse 93 Resp 18 B/P (MAP) 179/112 (134) Pulse Ox 96 O2 Delivery Room Air Capillary Refill : Less Than 3 Seconds Height, Weight, BMI Height: 5'7.00" Weight: 190lbs. 0oz. 86.280371ic; 29.00 BMI Method:Stated General Appearance: WD/WN, Anxious (Mild) Respiratory: Lungs Clear, Normal Breath Sounds Cardiovascular: Regular Rate, Rhythm, No Murmur Neurologic/Psychiatric: Alert, Oriented x3 Progress/Results/Core Measures Suspected Sepsis SIRS Temperature: Pulse: 93 Respiratory Rate: 18 Blood Pressure 179 /112 Mean: 134 Results/Orders My Orders Orders - NEREYDA BOWENS MD Gabapentin Capsule/Tablet (Neurontin Cap (02/12/23 07:15) Venlafaxine Xr Capsule (Effexor Xr Capsu (02/12/23 07:15) Pantoprazole Tablet (Protonix Tablet) (02/12/23 07:15) Lidocaine 2% Viscous 15 Ml (Xylocaine Vi (02/12/23 07:15) Famotidine Tablet (Pepcid Tablet) (02/12/23 07:07) Antacid Suspension (Mylanta Suspension (02/12/23 07:15) Vital Signs/I&O 02/12/23 06:45 Temp 36.8 Pulse 93 Resp 18 B/P (MAP) 179/112 (134) Pulse Ox 96 O2 Delivery Room Air Capillary Refill : Less Than 3 Seconds Blood Pressure Mean: 134 Progress Note : Progress Note Seen and evaluated. We did discuss at length regarding her medications and Suboxone therapy. She will have to follow-up with one of the local programs or with her doctor in [place] for Suboxone but I will represcribe her other medicines. I did med reconciliation review and found that patient was prescribed clonidine, ondansetron, Seroquel and Effexor yesterday to the [facility]. Patient did not know that and she was appreciative that [facility] had prescribed those. I will go ahead and refill her gabapentin. For her stomach issues, we will she would like to try a GI cocktail. I will go ahead and initiate Protonix 40 mg p.o. and Pepcid 20 mg p.o. as well and all of those were ordered. We did discuss labs and further evaluation she is okay with just the medication refill and that is reasonable to me as well. Gabapentin 800 mg p.o. and Effexor ER 150 mg p.o. ordered as well as other meds discussed abo ve. We will send prescription for gabapentin as well as Protonix. Discharged home with return precautions. Patient verbalized understanding instructions and agreement with plan. Departure Impression Primary Impression: Epigastric abdominal pain Additional Impression: Medication refill Disposition: HOME, SELF-CARE Condition: Stable Departure-Patient Inst. Decision time for Depature: 07:17 Referrals: DEONDRE SHAFFER MD (PCP/Family) Primary Care Physician Patient Instructions: Acid Reflux, Adult and Adolescent ED Add. Discharge Instructions: All discharge instructions reviewed with patient and/or family. Voiced understanding. You will need to picker / packer your medications at the [facility] on [facility] and picker / packer prescription for gabapentin and pantoprazole at the [facility]. Follow-up with Dr. Bradford or your doctor in [place] for Suboxone therapy. Return for worse pain, fever, vomiting, weakness, breathing problems or other concerns as needed. Scripts Gabapentin (Gabapentin) 800 Mg Tablet 800 MG PO TID for 30 Days, #90 TAB 0 Refills Prov: NEREYDA BOWENS MD 02/12/23 Pantoprazole Sodium (Pantoprazole Sodium) 40 Mg Tablet.dr 40 MG PO DAILY for 30 Days, #3 TAB 0 Refills Prov: NEREYDA BOWENS MD 02/12/23 NEREYDA BOWENS MD Feb 12, 2023 07:17
[2023-02-12] MEDS ORDERED: PANT40TA52 PO (07:21)
[2023-02-12] MEDS ORDERED: GABA800T10 PO (07:21)
[2023-02-12 07:57] VITALS: BP 130/101
== END 2023-02-12 07:57 | disposition home or self-care (01) ==
LOC: EDUNIT# 06:34 → ER 06:38
DX: R10.13 Epigastric pain (principal); Z76.0 Encounter for issue of repeat prescription; M25.519 Pain in unspecified shoulder; G89.29 Other chronic pain; F32.9 Major depressive disorder, single episode, unspecified; F31.9 Bipolar disorder, unspecified; Z79.899 Other long term (current) drug therapy; Z79.891 Long term (current) use of opiate analgesic
CPT/HCPCS: 99283

== ENCOUNTER 2023-07-24 11:18 | Emergency (ER) | payer OTHER ==
[~2023-07-24] VITALS: Ht 167.7 cm; Wt 81.6 kg
[~2023-07-24 11:18] MED LIST changes: +PANT40TA52 PO
--- NOTE | 2023-07-24 11:41 | ED Respiratory ---
General Stated Complaint: DIFFICULTY BREATHING | COUGH Source: patient Exam Limitations: no limitations History of Present Illness Date Seen by Provider: Jul 24, 2023 Time Seen by Provider: 11:39 Initial Comments Patient is a 47-year-old female with a history of smoking, hypertension, cyclic vomiting syndrome who presents the ED for URI symptoms. Symptoms started this past weekend with nasal congestion, sinus pressure, ear fullness. Started having drainage and developed a wet productive cough with clear sputum production. Started developing shortness of breath chest tightness over the past 2 days. She states she has been wheezy. She has been taking Karen-Currie without much improvement. She reports nausea without vomiting or diarrhea. Fever last night subjective. She denies of any neck pain, visual changes, sore throat, back pain, lower extremity weakness. She states she does feel tired and fatigue. Concern for upper respiratory infection. Denies history of COPD, asthma, coronary artery disease. Allergies and Home Medications Allergies Coded Allergies: levofloxacin (Unverified Allergy, Mild, HIVES, 04/30/09) morphine (Verified Allergy, Unknown, MAYBE HIVES BUT PT NOT SURE, 10/30/08) Patient Home Medication List Home Medication List Reviewed: Yes Albuterol Sulfate (Ventolin Hfa) 1 Puff Puff, 2 PUFF INH Q4H Prescribed by: DEANNA NELSON on 07/24/23 132 Atenolol (Atenolol) 50 Mg Tablet, 50 MG PO DAILY, (Reported) Entered as Reported by: HERMELINDA YUSUF on 03/16/18932 Bupropion HCl (Bupropion HCl Sr) 150 Mg Tablet.er, 150 MG PO BID, (Reported) Entered as Reported by: HERMELINDA YUSUF on 03/16/18932 Buspirone HCl (Buspirone HCl) 15 Mg Tablet, 15 MG PO TID, (Reported) Entered as Reported by: HERMELINDA YUSUF on 03/16/18932 Clonidine HCl (Clonidine HCl) 0.1 Mg Tablet, 0.1 MG PO BID, (Reported) Entered as Reported by: AURELIO CARPENTER on 04/21/16 0608 Doxycycline Monohydrate (Doxycycline Monohydrate) 100 Mg Tablet, 100 MG PO BID Prescribed by: DEANNA NELSON on 07/24/23 1322 Gabapentin (Gabapentin) 800 Mg Tablet, 800 MG PO QID, (Reported) Entered as Reported by: REHAN WALSH on 03/17/18 0939 Gabapentin (Gabapentin) 800 Mg Tablet, 800 MG PO TID Prescribed by: NEREYDA BOWENS on 02/12/23 0721 Ondansetron (Zofran Odt) 8 Mg Tab.rapdis, 8 MG SL Q4H PRN for NAUSEA/VOMITING- 1ST LINE Prescribed by: KASEY ARROYO on 03/17/18 1002 Pantoprazole Sodium (Pantoprazole Sodium) 40 Mg Tablet.dr, 40 MG PO DAILY Prescribed by: NEREYDA BOWENS on 02/12/23 0721 Prednisone (Prednisone) 50 Mg Tab, 50 MG PO DAILY Prescribed by: DEANNA NELSON on 07/24/23 1322 Quetiapine Fumarate (Seroquel Xr) 300 Mg Tab.er.24h, 300 MG PO BID, (Reported) Entered as Reported by: AURELIO CARPENTER on 04/21/16 0608 Trazodone HCl (Trazodone HCl) 100 Mg Tablet, 100 MG PO HS, (Reported) Entered as Reported by: ASHISH CRUZ on 03/16/18 1725 Review of Systems Review of Systems Constitutional: chills; No diaphoresis; fever, malaise; No weakness EENTM: No ear pain, No blurred vision Respiratory: cough, dyspnea on exertion, short of breath Cardiovascular: No chest pain Gastrointestinal: No abdominal pain, No diarrhea; nausea Genitourinary: No decreased output, No discharge Musculoskeletal: No back pain, No joint pain Skin: No change in color, No change in hair/nails All Other Systems Reviewed Negative Unless Noted: Yes Past Wttagma-Pglxwr-Cbmjik Hx Immunizations Up To Date Tetanus Booster (TDap): More than 5yrs PED Vaccines UTD: Yes First/Initial COVID19 Vaccinat: 2020 Second COVID19 Vaccination Dawson: 2020 Third COVID19 Vaccination Date: 2020 Seasonal Allergies Seasonal Allergies: No Past Medical History Surgeries: Yes (EGD. 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 Sexually Transmitted Disease: No HIV/AIDS: No Genitourinary: Yes Kidney Stones, UTI-Chronic Gastrointestinal: Yes Ulcer Musculoskeletal: No (CHRONIC SHOULDER PAIN) Fibromyalgia Endocrine: No HEENT: No Loss of Vision: Denies Hearing Impairment: Denies Cancer: No Psychosocial: Yes (POLYSUBSTANCE ABUSE) Anxiety, Bipolar, Depression Integumentary: Yes (arms and elbows) Psoriasis Blood Disorders: No Family Medical History Cancer GRANDMOTHERS, Onset:Unknown (LUNG CA, LEUKEMIA) Congenital heart disease GRANDMOTHERS, Onset:60 years & older Family history: Diabetes mellitus GRANDMOTHERS Family history: Hypertension 03 FATHER, Onset:Unknown 03 MOTHER 09 BROTHER No Family History of: AIDS Abdominal aortic aneurysm Abdominal aortic aneurysm Richmond's disease Richmond's disease Alcoholism Aphasia Cancer of colon Cataract Chest pain Congestive heart failure Cystic fibrosis Dementia Dysphagia Dysphasia Family history: Alzheimer's disease Family history: Arthritis Family history: Asthma Family history: Breast disease Family history: Cardiovascular disease Family history: Coronary thrombosis Family history: Gastrointestinal disease Family history: Glaucoma Family history: Osteoporosis Family history: Thyroid disorder Fibrocystic disease of breast Gastroenteritis Headache Hearing loss Heart disease Hereditary disease History of - anemia History of - disorder History of - respiratory disease History of drug abuse Human immunodeficiency virus (HIV) seropositivity Hypercholesterolemia Infertile Kidney disease Malignant neoplasm of lung Myocardial infarction Parkinson's disease Prostate cancer Psychotic disorder Seizure disorder Stroke Tuberculosis Visual impairment Heart Disease, Diabetes, GI Disease, Hypertension, Renal Disease Physical Exam Vital Signs - First Documented 07/24/23 11:41 Pulse 76 B/P (MAP) 142/92 (109) Pulse Ox 93 O2 Delivery Room Air Capillary Refill : Height: 5'7.00" Weight: 190lbs. 0oz. 86.586695ni; BMI Method:Stated General Appearance: WD/WN, no apparent distress Eyes: Bilateral Eye Normal Inspection, Bilateral Eye PERRL, Bilateral Eye EOMI HEENT: PERRL/EOMI, normal ENT inspection, TMs normal, pharynx normal Neck: non-tender, full range of motion, supple Respiratory: no respiratory distress, no accessory muscle use, wheezing Cardiovascular: regular rate, rhythm, no edema, no gallop, no JVD Gastrointestinal: normal bowel sounds, non tender, soft, no organomegaly Extremities: normal range of motion, non-tender, normal inspection, no pedal edema Neurologic/Psychiatric: clinical leader II-XII nml as tested, no motor/sensory deficits, alert, normal mood/affect, oriented x 3 Skin: normal color, warm/dry Progress/Results/Core Measures Suspected Sepsis SIRS Temperature: Pulse: Respiratory Rate: Laboratory Tests 07/24/23 11:55: White Blood Count 10.6 Blood Pressure / Mean: Laboratory Tests 07/24/23 11:55: Creatinine 0.74, Platelet Count 318, Total Bilirubin 0.3 Results/Orders Lab Results Laboratory Tests Test 07/24/23 11:55 Range/Units White Blood Count 10.6 4.3-11.0 10^3/uL Red Blood Count 3.30 L 3.80-5.11 10^6/uL Hemoglobin 10.1 L 11.5-16.0 g/dL Hematocrit 31 L 35-52 % Mean Corpuscular Volume 94 80-99 fL Mean Corpuscular Hemoglobin 31 25-34 pg Mean Corpuscular Hemoglobin Concent 33 32-36 g/dL Red Cell Distribution Width 14.0 10.0-14.5 % Platelet Count 318 130-400 10^3/uL Mean Platelet Volume 9.3 9.0-12.2 fL Immature Granulocyte % (Auto) 1 % Neutrophils (%) (Auto) 68 42-75 % Lymphocytes (%) (Auto) 21 12-44 % Monocytes (%) (Auto) 9 0-12 % Eosinophils (%) (Auto) 1 0-10 % Basophils (%) (Auto) 0 0-10 % Neutrophils # (Auto) 7.3 1.8-7.8 10^3/uL Lymphocytes # (Auto) 2.2 1.0-4.0 10^3/uL Monocytes # (Auto) 0.9 0.0-1.0 10^3/uL Eosinophils # (Auto) 0.1 0.0-0.3 10^3/uL Basophils # (Auto) 0.0 0.0-0.1 10^3/uL Immature Granulocyte # (Auto) 0.1 0.0-0.1 10^3/uL Sodium Level 141 135-145 MMOL/L Potassium Level 3.8 3.6-5.0 MMOL/L Chloride Level 105 98-107 MMOL/L Carbon Dioxide Level 24 21-32 MMOL/L Anion Gap 12 5-14 MMOL/L Blood Urea Nitrogen 4 L 7-18 MG/DL Creatinine 0.74 0.60-1.30 MG/DL Estimat Glomerular Filtration Rate 100 BUN/Creatinine Ratio 5 Glucose Level 91 70-105 MG/DL Calcium Level 8.9 8.5-10.1 MG/DL Corrected Calcium 9.1 8.5-10.1 MG/DL Total Bilirubin 0.3 0.1-1.0 MG/DL Aspartate Amino Transf (AST/SGOT) 22 5-34 U/L Alanine Aminotransferase (ALT/SGPT) 24 0-55 U/L Alkaline Phosphatase 100 40-136 U/L C-Reactive Protein High Sensitivity 9.75 H 0.00-0.50 MG/DL Total Protein 6.7 6.4-8.2 GM/DL Albumin 3.8 3.2-4.5 GM/DL Influenza Type A (RT-PCR) Not Detected Not Detecte Influenza Type B (RT-PCR) Not Detected Not Detecte SARS-CoV-2 RNA (RT-PCR) Not Detected Not Detecte My Orders Orders - JONI SMART PA Cbc And Automated Diff (07/24/23 11:36) Comprehensive Metabolic Panel (07/24/23 11:36) Hs C Reactive Protein (07/24/23 11:36) Methylprednisolone Sod Succ (Methylpredn (07/24/23 11:45) Chest 1 View, Ap/Pa Only (07/24/23 11:36) Covid 19 Inhouse Test (07/24/23 11:36) Influenza A And B By Pcr (07/24/23 11:36) Ipratropium/Albuterol Inh Soln (Ipratrop (07/24/23 11:45) Svn Small Volume Nebulizer (07/24/23 11:36) Albuterol Pre-Mix Nebs (Rt) (Albuterol (07/24/23 13:00) Svn Small Volume Nebulizer (07/24/23 12:52) Medications Given in ED Current Medications Medications Dose Ordered Sig/Manuelito Route Start Time Stop Time Status Last Admin Dose Admin Albuterol Sulfate 20 mg ONCE ONCE INH 07/24/23 13:00 07/24/23 13:01 DC 07/24/23 13:11 20 MG Albuterol/ Ipratropium 3 ml ONCE ONCE INH 07/24/23 11:45 07/24/23 11:46 DC 07/24/23 12:41 3 ML Methylprednisolone Sodium Succinate 125 mg ONCE ONCE IVP 07/24/23 11:45 07/24/23 11:46 DC 07/24/23 12:01 125 MG Vital Signs/I&O 07/24/23 07/24/23 07/24/23 07/24/23 11:41 11:41 12:42 13:12 Pulse 76 B/P (MAP) 142/92 (109) Pulse Ox 93 94 94 O2 Delivery Room Air Room Air Room Air Room Air 07/24/23 14:25 Pulse 89 B/P (MAP) 141/55 Pulse Ox 96 O2 Delivery Room Air Capillary Refill : Departure Communication (PCP) Patient is a 47-year-old female who presents to the ED for URI symptoms. History of smoking. Denies history of COPD or asthma. No known cardiac history. She was not hypoxic or tachycardic diffuse wheezing noted throughout. COVID influenza CBC, CMP was initiated. Received 125 mg of Solu-Medrol. Prov ided DuoNeb breathing treatment. COVID influenza was negative. CBC, CMP grossly markable. Chest x-ray was ordered which did not note any pneumonia or pneumothorax. She still had significant wheezing after the initial DuoNeb breathing treatment. Was given hour-long breathing treatment with significant improvement. Oxygen remained in the mid 90s. Walking ambulation was 96. She did improve after coughing. She does have a lot of mucus production. At this time will discharge doxycycline prophylactically with her chronic history of smoking. Concern for component of COPD. Discharge short burst steroids. If any worsening symptoms such as increased work of breathing, severe chest pain to return back to ED. Follow-up your PCP in 2 to 3 days for reevaluation. Impression Primary Impression: Upper respiratory infection Disposition: HOME, SELF-CARE Condition: Stable Departure-Patient Inst. Decision time for Depature: 13:21 Referrals: FAIZA ANDRADE DO (PCP/Family) Primary Care Physician Patient Instructions: Upper Respiratory Infection ED Add. Discharge Instructions: Continue with your treatment. If any worsening symptoms return back to ED. Scripts Prednisone (Prednisone) 50 Mg Tab 50 MG PO DAILY for 5 Days, #5 TAB Prov: JONI SMART 07/24/23 Albuterol Sulfate (VENTOLIN HFA) 1 Puff Puff 2 PUFF INH Q4H, #1 EA 1 PUFF = 90 MCG Prov: JONI SMART 07/24/23 Doxycycline Monohydrate (Doxycycline Monohydrate) 100 Mg Tablet 100 MG PO BID for 7 Days, #14 TAB Prov: JONI SMART 07/24/23 Work/School Note: Work Release Form Date Seen in the Emergency Department: Jul 24, 2023 Return to Work: Jul 28, 2023 JONI SMART Jul 24, 2023 11:41
[2023-07-24] MEDS ORDERED: methylPREDNISolone INJ 125 MG VIAL IVP ONE (11:45)
[2023-07-24] MEDS ORDERED: RT-Ipratropium/Albuterol NEB 3 ML VIAL INH ONE (11:45)
[2023-07-24 12:01] LABS: BASOPHILS % (AUTO) 0 % (0-10); EOSINOPHILS # (AUTO) 0.1 10^3/uL (0.0-0.3); EOSINOPHILS % (AUTO) 1 % (0-10); HEMATOCRIT 31 % (35-52); HEMOGLOBIN 10.1 g/dL (11.5-16.0); LYMPHOCYTES # (AUTO) 2.2 10^3/uL (1.0-4.0); LYMPHOCYTES % (AUTO) 21 % (12-44); MEAN CORPUSCULAR HEMOGLOBIN 31 pg (25-34); MEAN CORPUSCULAR HGB CONC 33 g/dL (32-36); MEAN CORPUSCULAR VOLUME 94 fL (80-99); MEAN PLATELET VOLUME 9.3 fL (9.0-12.2); MONOCYTES # (AUTO) 0.9 10^3/uL (0.0-1.0); MONOCYTES % (AUTO) 9 % (0-12); NEUTROPHILS # (AUTO) 7.3 10^3/uL (1.8-7.8); NEUTROPHILS % (AUTO) 68 % (42-75); PLATELET COUNT 318 10^3/uL (130-400); WHITE BLOOD COUNT 10.6 10^3/uL (4.3-11.0)
[2023-07-24 12:10] LABS: ALBUMIN 3.8 GM/DL (3.2-4.5); POTASSIUM 3.8 MMOL/L (3.6-5.0)
[2023-07-24 12:11] LABS: CALCIUM 8.9 MG/DL (8.5-10.1)
[2023-07-24 12:12] LABS: TOTAL PROTEIN 6.7 GM/DL (6.4-8.2)
[2023-07-24 12:14] LABS: BILIRUBIN,TOTAL 0.3 MG/DL (0.1-1.0)
[2023-07-24 12:16] LABS: CREATININE SERUM 0.74 MG/DL (0.60-1.30)
--- NOTE | 2023-07-24 12:21 | Diagnostic Imaging Report ---
INDICATION: Shortness of breath, cough and fever. PA chest obtained at 12:19 p.m. Heart and mediastinal silhouette are normal in appearance. The lungs are clear. There is no pneumothorax or pleural fluid. IMPRESSION: Negative chest. Dictated by: Dictated on workstation # [id number]
[2023-07-24] MEDS ORDERED: RT-ALBUTEROL SULF 2.5 MG/3 ML PRE-MIX VIAL INH ONE (13:00)
[2023-07-24] MEDS ORDERED: PRD50T PO (13:22)
[2023-07-24] MEDS ORDERED: DOXY100T31 PO (13:22)
[2023-07-24] MEDS ORDERED: RT-ALBUINH INH (13:22)
[2023-07-24 14:25] VITALS: BP 141/55
== END 2023-07-24 14:26 | disposition home or self-care (01) ==
LOC: EDUNIT# 11:18 → ER 11:20
DX: J06.9 Acute upper respiratory infection, unspecified (principal); Z20.822 Contact with and (suspected) exposure to COVID-19; Z87.891 Personal history of nicotine dependence
CPT/HCPCS: 36415; 71045; 80053; 85025; 86141; 87636; 94640